=== PATIENT | female | born 1995 | race Caucasian/White ===

== ENCOUNTER 2018-01-03 12:01 | Emergency (ER) | payer OTHER, MEDICAID, SELFPAY ==
[2018-01-03 12:02] VITALS: BP 104/63; PULSE 92; RESP 17; TEMP 37; O2SAT 94; BMI 25.2
--- NOTE | 2018-01-03 12:12 | RAD_ITS ---
STUDY: X-RAY - RIGHT SHOULDER REASON FOR EXAM: Female, 22 years old. Shoulder pain x couple weeks. Injury several years ago. TECHNIQUE: 4 image(s) of the shoulder, including frontal internal and external rotation views. COMPARISON: None. FINDINGS: Normal glenohumeral articulation. Normal acromioclavicular joint. Normal acromion. There is normal range of motion on internal and external rotation. Normal humeral head and visualized proximal humerus. The soft tissue structures are unremarkable. There is no demonstrated osseous destructive lesion or fracture. Normal visualized pulmonary apex. RAD/Shoulder min 2 Views IMPRESSION: Normal x-ray examination of the right shoulder. Electronically Signed: Douglas Rosen MD at 13:12 EDT , Service support ,
--- NOTE | 2018-01-03 12:17 | ED.DCSUM_ITS ---
- ER Visit Summary Date of Service: 01/03/18 Chief Complaint: Atraumatic right shoulder pain. History of Present Illness: The patient is a 22 F hand dominant. Prior history of right shoulder fracture but never needed surgery. Also for the endometriosis. Patient works using her hands a lot. In the last 2 weeks has had soreness and discomfort in her right shoulder. Denies any new falls or trauma. No redness, swelling or fever. Denies other complaints. Physical Examination: Appearing young female. Vital signs are stable. Afebrile. H EENT exam unremarkable. Neck nontender no lymphadenopathy. Full range of motion. Lungs clear to auscultation bilaterally. Heart regular rate and rhythm no murmur. Chest and abdomen soft nontender. Extremities moving all 4. Neurovascular intact. The right shoulder itself there is no swelling. No redness or warmth. No effusion. There is no gross bony deformity. There is no significant tenderness. She is able to do full flexion-extension of the right shoulder. AB and adduction are intact. Distally the right humerus, elbow, forearm wrist and hand are nontender neurovascular intact. Strong radial pulse. Normal electrician yard strength and sensation. Back nontender. Neurologic exam normal. Test Results: Right shoulder x-ray no acute abnormality Emergency Department Course and Treatment: On repeat exam at the patient is doing well. I went over the x-ray results with both her and her significant other. Treatment Plan: Ice to the right shoulder. Motrin for pain and inflammation. Rest. If not improving follow-up with local orthopedic surgeon. Disposition: Discharge Impression: Acute right shoulder strain This note was generated with FreeAgent dictation software. It may contain incorrect words, spelling, and punctuation that were not noted in review of the chart prior to signing ED Disposition - Plan for ED Patient: Chief Complaint: Upper Extremity Injury Referrals: [facility] Doctor,Out of [Primary Care Provider] -
--- NOTE | 2018-01-03 13:06 | ED.DEP ---
ED Disposition - Plan for ED Patient: Disposition: Home or Assisted Living Chief Complaint: Upper Extremity Injury Instructions: ED Sprain Shoulder Referrals: Nilesh Carmen DO [STAFF PHYSICIAN] - 10-14 Days if not better Additional Instructions: Ice to right shoulder. Motrin for pain and inflammation. Rest the shoulder. No lifting greater than 10 pounds. If not improving follow-up with local orthopedic surgeon.
== END 2018-01-03 13:32 | disposition home or self-care (01) ==
PROVIDERS: Emergency Provider Emergency Medicine; Family Provider Nurse Practitioner Family; PCP Nurse Practitioner Family
DX: S46.911A Strain of unspecified muscle, fascia and tendon at shoulder and upper arm level, right arm, initial encounter (principal); X58.XXXA Exposure to other specified factors, initial encounter; Y93.9 Activity, unspecified; F32.9 Major depressive disorder, single episode, unspecified
CPT/HCPCS: 73030; 99282

== ENCOUNTER → 2019-03-21 14:07 | Outpatient (CLI) | payer OTHER, MEDICAID, SELFPAY ==
[2018-06-15 10:11] VITALS: BMI 28.5
[2019-03-21 16:24] LABS: Absolute Lymphocyte Count 1.63 X10^3/uL (0.83-4.51); Absolute Neutrophil Count 8.3 X10^3/uL (2.0-7.7); Basophil# 0.04 X10^3/uL; Basophil% 0.4 % (0-1); Eosinophil# 0.06 X10^3/uL; Eosinophils% 0.6 % (0-5); Hematocrit 43.3 % (37-47); Hemoglobin 14.1 g/dL (12.0-15.0); Lymphocyte # 1.63 X10^3/ul (4.0); Lymphocyte % 15.2 % (19-41); Mean Corp Hgb Conc 32.6 g/dL (32-36); Mean Corpuscular Volume 92.1 fL (81-99); Mean Platelet Vol. 9.4 fl (6.2-12.0); Monocyte# 0.64 X10^3/uL; NRBC Flagged by Analyzer 0 % (0-5); Neutrophil # 8.26 X10^3/uL (2.7-7.7); Neutrophil % 77.1 % (47-70); Platelet Count 344 K/mm3 (150-450); RBC Distribution Width CV 13.4 % (11.6-14.6); RBC Distribution Width SD 45.2 fl (35.1-43.9); White Blood Count 10.7 K/mm3 (4.4-11.0)
[2019-03-21 16:31] LABS: Color, Urine Yellow (Yellow); Glucose, Dipstick Normal (Normal); Ketone-Dipstick Negative (Negative); Leukocyte Esterase-Dipstick 100 /ul (Negative); Nitrite-Dipstick Negative (Negative); Occult Blood-Urine Negative /ul (Negative); Protein-Dipstick Negative (Negative); Urine Bilirubin Dipstick Negative (Negative); Urine Clarity Sl. Cloudy (Clear); Urine Urobilinogen Normal (Normal)
[2019-03-21 16:38] LABS: Thyroid Stim Hormone (TSH) 3.07 uIU/mL (0.358-3.74)
[2019-03-21 16:51] LABS: Amphetamine Urine VISTA NEGATIVE (<1000 ng/mL); Barbiturate Urine VISTA NEGATIVE (< 200 ng/mL); Benzodiazepine Urine VISTA NEGATIVE (< 200 ng/mL); Cocaine Urine VISTA NEGATIVE (< 300 ng/mL); Ecstacy Urine VISTA NEGATIVE (< 500 ng/mL); Methadone Urine VISTA NEGATIVE (< 300 ng/mL); PCP Urine VISTA NEGATIVE (< 25 ng/mL); THC Urine VISTA NEGATIVE (< 50 ng/mL); Vista UDS pH Range 7
[2019-03-22 14:25] LABS: HIV - WCH Non-Reactive (Nonreactive); Hepatitis B Surface Antigen Non-Reactive (Nonreactive); Hepatitis C Antibody Non-Reactive (Nonreactive)
[2019-03-24 00:56] LABS: Prenatal RPR NONREACTIVE (NONREACTIVE)
== END ==
PROVIDERS: Visit Provider Obstetrics & Gynecology
DX: Z34.81 Encounter for supervision of other normal pregnancy, first trimester (principal)
CPT/HCPCS: 36415; 80307; 81002; 84443; 85025; 86703; 86762; 86803; 87340

== ENCOUNTER 2019-04-07 22:38 | Emergency (ER) | payer OTHER, MEDICAID, SELFPAY ==
[2018-06-15 10:11] VITALS: BMI 28.5
[2019-04-07 22:39] VITALS: BP 131/75; PULSE 87; RESP 16; TEMP 37; O2SAT 98; BMI 35.6
--- NOTE | 2019-04-07 22:50 | ED.DCSUM_ITS ---
History of Present Illness Chief Complaint: Back Detail of Chief Complaint: Right lower back pain Informant: Patient Onset: Weeks Context: Gradual Onset Current Severity: Mild Maximum Severity: Moderate Narrative: Patient presents with right lower back pain that is been ongoing for the past couple of weeks. She states tonight she started having some intermittent pains down her leg. No recent injury. Patient is currently 12 weeks . She has not been taking anything for pain at home. - Past Medical History (1) Depression Status: Chronic Past Medical History - Allergies and Home Meds Allergies/Adverse Reactions: Allergies megestrol Allergy (Verified 04/07/19 22:41) shortness of breath, hives Primary Care Physician: Gisela Noriega NP-C [Primary Care Provider] - Prior records reviewed: Yes Lives: Spouse/ Significant Other Smoking Status: Never smoker Review of Systems General: Denies: Chills, Fever Eyes: Denies: Visual changes - bilaterally ENT: Denies: Bilateral ear pain Cardiovascular: Denies: Chest pain Respiratory: Denies: Dyspnea, Cough Gastrointestinal: Denies: Abdominal pain, Diarrhea Genitourinary: Denies: Dysuria Musculoskeletal: Reports: Back pain, Extremity Pain Skin: Denies: Rash Neurological: Denies: Headache, Parasthesia, Numbness Allergy: Denies: Uticaria Physical Exam Vital Signs/Narrative: Vital Signs Temp Pulse Resp BP Pulse Ox 04/07/19 22:39 98.6 F 87 16 131/75 H 98 Inital Vital Signs reviewed: Yes General: Well nourished, Well developed Head: Normocephalic ENT: Moist mucous membranes Neck: Supple Cardiovascular: Regular rate, Regular rhythm Respiratory: No distress, CTA bilaterally Abdomen: Soft, Nontender Back: - - Reproducible tenderness in the right low lumbar paraspinal muscles. No midline tenderness. Skin: Normal color, No rash Neurological: Alert, Oriented x3, Normal Strength, Normal Sensation Psychological: Normal affect Diagnostic/Tx/Re-eval - Medical Decision Making Patient was given single dose of Dermott here. She is instructed on Tylenol every 6 hours. She is encouraged to do stretches. If she needs physical therapy she is to follow-up with her orthopedist. ED Disposition - Plan for ED Patient: Disposition: Home or Assisted Living Diagnosis: Back strain Instructions: Back Sprain/Strain Referrals: Gisela Noriega NP-C [Primary Care Provider] - 1 Week if not improving
[2019-04-07] MEDS: HYDROcodone Bitartrate/Apap 5/325 Tablet PO (23:03)
[2019-04-07 23:07] VITALS: RESP 14
== END 2019-04-07 23:07 | disposition home or self-care (01) ==
LOC: ED 23:03
PROVIDERS: Emergency Provider Emergency Medicine; Family Provider Nurse Practitioner Family; PCP Nurse Practitioner Family
DX: O99.89 Other specified diseases and conditions complicating pregnancy, childbirth and the puerperium (principal); S39.012A Strain of muscle, fascia and tendon of lower back, initial encounter; X58.XXXA Exposure to other specified factors, initial encounter; Y93.9 Activity, unspecified; O99.341 Other mental disorders complicating pregnancy, first trimester; F32.9 Major depressive disorder, single episode, unspecified; Z3A.12 12 weeks gestation of pregnancy
CPT/HCPCS: 99283; J7030

== ENCOUNTER 2019-04-30 16:45 | Emergency (ER) | payer OTHER, MEDICAID, SELFPAY ==
[2019-04-30 16:46] VITALS: BP 117/76; PULSE 101; RESP 14; TEMP 36.7; O2SAT 98; BMI 35.6
[2019-04-30 17:58] LABS: Mucous, Urine 0 SEEN /hpf (<or=2+); Red Blood Cells-Urine 0 SEEN /hpf (0-5)
[2019-04-30 18:03] LABS: Color, Urine Yellow (Yellow); Glucose, Dipstick Normal (Normal); Ketone-Dipstick 5 mg/dl (Negative); Leukocyte Esterase-Dipstick 100 /ul (Negative); Nitrite-Dipstick Negative (Negative); Occult Blood-Urine 10 /ul (Negative); Protein-Dipstick 15 mg/dl (Negative); Specific Gravity, Urine 1.025 (1.002-1.030); Urine Bilirubin Dipstick Negative (Negative); Urine Clarity Sl. Cloudy (Clear); Urine Urobilinogen 1 mg/dl (Normal); Urine pH 6.5 (5.0 - 8.0)
[2019-04-30 18:05] LABS: Absolute Lymphocyte Count 1.92 X10^3/uL (0.83-4.51); Absolute Neutrophil Count 8.7 X10^3/uL (2.0-7.7); Basophil# 0.03 X10^3/uL; Basophil% 0.3 % (0-1); Eosinophil# 0.09 X10^3/uL; Eosinophils% 0.8 % (0-5); Hematocrit 40.7 % (37-47); Hemoglobin 13.4 g/dL (12.0-15.0); Lymphocyte # 1.92 X10^3/ul (4.0); Lymphocyte % 16.7 % (19-41); Mean Corp Hgb Conc 32.9 g/dL (32-36); Mean Corpuscular Hgb 29.8 pg (27.0-32.0); Mean Corpuscular Volume 90.4 fL (81-99); Monocyte# 0.64 X10^3/uL; Monocyte% 5.6 % (0-10); NRBC Flagged by Analyzer 0 % (0-5); Neutrophil # 8.65 X10^3/uL (2.7-7.7); Neutrophil % 75.1 % (47-70); Platelet Count 316 K/mm3 (150-450); RBC Distribution Width CV 13.4 % (11.6-14.6); White Blood Count 11.5 K/mm3 (4.4-11.0)
[2019-04-30 18:10] LABS: Internal QC Validated? YES +Cl - CLEAR BKGD
[2019-04-30 18:11] LABS: Pregnancy, Serum, hCG Quali. POSITIVE Negative
[2019-04-30 18:13] LABS: White Blood Cells 0-5 SEEN /hpf (0-5)
[2019-04-30 18:14] LABS: Bacteria 2+ /hpf (None Seen); Squamous Epithelial Cells - UA 0-5 SEEN /hpf (5-10)
[2019-04-30 18:14] LABS: Anion Gap 7 (5-15); BUN 7 mg/dL (7-18); BUN/Creat Ratio 9.2 RATIO (10-20); Calcium,Total 9.6 mg/dL (8.5-10.1); Chloride 111 mmol/L (98-107); Creatinine, Serum 0.76 mg/dL (0.55-1.02); EST Glomerular Filtration Rate 98 mL/min (>60); Est Glom Filt Rate - Afr Amer 118 mL/min (>60); Estimated Creatinine Clearance 143.27 ml/min; Glucose 106 mg/dL (74-106); Potassium 3.6 mmol/L (3.5-5.1); Sodium Level 139 mmol/L (136-145)
--- NOTE | 2019-04-30 18:25 | ED.DCSUM_ITS ---
History of Present Illness Chief Complaint: Abd Pain Informant: Patient Onset: Weeks Maximum Severity: Mild Narrative: Patient is about 14 weeks she is G2, P1 having a miscarriage with her at about 3 to 4 weeks. She indicates she has been having intermittent right-sided abdominal pain for 1 to 2 weeks it seems to come and go she recalls it being exacerbated when she coughed or sneezed then today when she was carrying a heavy laundry basket down stairs. The pain comes and goes nothing makes it better or worse she is had no fever no cough she is eating and drinking well normal bowel bladder habits no vaginal bleeding. She indicates she had a pelvic ultrasound when she was 10 weeks with uncomplicated pelvic ultrasound noticed of ectopic no fever no cough no history to suggest appendicitis Past Medical History - Allergies and Home Meds Allergies/Adverse Reactions: Allergies megestrol Allergy (Verified 04/30/19 16:48) shortness of breath, hives Primary Care Physician: Gisela Noriega, [employer]-C [Primary Care Provider] - Past Medical History: - Smoking Status: Never smoker Review of Systems ROS: - As above General: Denies: Chills, Fever, Sweats Eyes: Denies: Visual changes - bilaterally, Diplopia ENT: Denies: Rhinorrhea, Sore throat Cardiovascular: Denies: Chest pain, Palpitations Respiratory: Denies: Dyspnea, Cough, Dyspnea on exertion Gastrointestinal: Reports: Abdominal pain. Denies: Nausea, Vomiting, Diarrhea, Melena, Hematochezia Genitourinary: Denies: Dysuria, Hematuria, Frequency Musculoskeletal: Denies: Back pain, Extremity Pain Skin: Denies: Rash, Wounds Neurological: Denies: Headache, Weakness, Numbness Physical Exam Vital Signs/Narrative: Vital Signs Temp Pulse Resp BP Pulse Ox 04/30/19 16:46 98.1 F 101 H 14 117/76 98 General: Well nourished, Well developed, No Acute Distress Head: Normocephalic, Atraumatic Eyes: Perrl, EOMI ENT: Moist mucous membranes, No rhinorrhea Neck: Supple, Nontender Cardiovascular: Regular rate, Regular rhythm, No murmurs Respiratory: No distress, CTA bilaterally, Chest nontender Abdomen: Soft, Nontender, Nondistended, Normal bowel sounds, - - The patient's abs Apsley soft and nontender she is having no pain now she points to the right side of the abdomen right flank area as the area she has pain in the backs unremarkable rest of her exam is entirely unremarkable she denies any vaginal bleeding or discharge Back: Nontender, Normal Inspection Extremities: Nontender, No edema Skin: Normal color, No rash Neurological: Alert, Oriented x3, Cranial nerves II-XII grossly intact, Normal Strength, Normal Sensation Psychological: Normal affect, Normal Mood Diagnostic/Tx/Re-eval - Medical Decision Making The patient has had the pain intermittently for weeks her ED evaluation with labs CBC white count negative UA negative she indicates she had a pelvic ultrasound to the office at 10 weeks that showed IUP with no ectopic, at this time we were talking to her QUANTITY SURVEYOR Dr. Kamara to discuss her further management Patient's ED lab work-up and UA were generally unremarkable, the UA showed no acute gross abnormalities was some bacteriuria sent for urine culture on reevaluation she remains asymptomatic she is been eating and drinking she is been having this intermittent pain for weeks I spoke with her inbound sales representative Dr. Kamara we discussed the management options he agreed that this time ultrasound was not necessary and he would prefer to see her in the office on Thursday or Thursday for further management, I discussed this option with the patient she agreed she understood the need to avoid carrying heavy objects might strain her abdomen to return for any change in her symptoms vaginal bleeding vomiting fever etc. and she was comfortable with outpatient management Home stable Final impression Remittent right-sided abdominal pain, 14 weeks ED Disposition - Plan for ED Patient: Diagnosis: Abdominal pain in Instructions: ABDOMINAL PAIN, Unknown Cause, (Female), ABDOMINAL PAIN, Early Referrals: Gisela Noriega, ZORAIDA-C [Primary Care Provider] -
[2019-04-30 19:08] VITALS: RESP 16
== END 2019-04-30 19:37 | disposition home or self-care (01) ==
LOC: ED 18:33
PROVIDERS: Emergency Provider Emergency Medicine; PCP Nurse Practitioner Family
DX: O26.892 Other specified pregnancy related conditions, second trimester (principal); R10.9 Unspecified abdominal pain; Z3A.14 14 weeks gestation of pregnancy
CPT/HCPCS: 80048; 81001; 84703; 85025; 87086; 87088; 99283; A4216

== ENCOUNTER 2019-08-06 14:55 | Outpatient (CLI) | payer OTHER, MEDICAID, SELFPAY ==
[2019-08-06 15:19] VITALS: BP 98/55; PULSE 95; TEMP 36.7; O2SAT 97
[2019-08-06 15:33] VITALS: BMI 38.2
[2019-08-06 15:49] LABS: Color, Urine Yellow (Yellow); Glucose, Dipstick Normal (Normal); Ketone-Dipstick Negative (Negative); Leukocyte Esterase-Dipstick 25 /ul (Negative); Nitrite-Dipstick Negative (Negative); Occult Blood-Urine Negative /ul (Negative); Protein-Dipstick Negative (Negative); Specific Gravity, Urine 1.015 (1.002-1.030); Urine Bilirubin Dipstick Negative (Negative); Urine Clarity Cloudy (Clear); Urine Urobilinogen Normal (Normal)
[2019-08-06 16:26] VITALS: RESP 18
--- NOTE | 2019-08-06 23:08 | OB.TRI.NOTE ---
- Problem List (1) 28 weeks gestation of Status: Acute (2) Pain Status: Acute History of Present Illness Date of Service: 08/06/19 Was patient seen by the physician?: No Reason For Visit: RULE OUT PRE TERM LABOR Date of Service: 08/06/19 Final JENNIFER: 10/23/19 Final JENNIFER Source: US <20 weeks Gestational age: 28 Weeks and 6 Days Allergies megestrol Allergy (Verified 08/06/19 15:30) shortness of breath, hives Laboratory Studies: Laboratory Tests 08/06/19 Range/Units 15:00 Urine Color Yellow (Yellow) Urine Clarity Cloudy (Clear) Urine pH 7.0 (5.0 - 8.0) Ur Specific Wheaton 1.015 (1.002-1.030) Urine Protein Negative (Negative) mg/dl Urine Glucose (UA) Normal (Normal) mg/dl Urine Ketones Negative (Negative) mg/dl Urine Occult Blood Negative (Negative) /ul Urine Nitrite Negative (Negative) Urine Bilirubin Negative (Negative) mg/dL Urine Urobilinogen Normal (Normal) mg/dl Ur Leukocyte Esterase 25 H (Negative) /ul Review of Systems Constitutional: Denies: Chills, Fever, Weight Change HEENT: Denies: Head Aches, Sinus Congestion, Sinus Drainage Cardiovascular: Denies: Chest Pain, Palpitations Respiratory: Denies: Cough, Shortness of breath at rest, Sputum production Gastrointestinal: Reports: Abdominal Pain - LUQ and, left side and pelvis. Denies: Nausea, Vomiting Genitourinary: Denies: Dysuria Musculoskeletal: Denies: Joint Pain, Joint Tenderness Skin: Denies: Rash, Wounds Neurological: Denies: Numbness, Tingling, Focal weakness Psychiatric: Denies: Anxiety, Depression, Homicidal Ideations, Suicidal Ideations Hematologic/ Lymphatic: Denies: Easy Bruising, Easy Bleeding Physical Exam Vitals: Vital Signs Temp Pulse Resp BP Pulse Ox 98.1 F 95 18 98/55 L 97 08/06/19 15:19 08/06/19 15:19 08/06/19 16:26 08/06/19 15:19 08/06/19 15:19 General: Alert, Oriented x3, No apparent distress HEENT: Atraumatic, Normocephalic. Negative for: Thyromegaly, Lymphadenopathy Cardiovascular: Regular rate, Regular Rhythm Lungs: Clear to auscultation Abdomen: Bowel Sounds Present, Gravid Neurological: Deep Tendon Reflexes 2+/4 and Symmetrical, Neuro grossly intact CARDIOLOGY TEACHER: Normal external genitalia. Negative for: Vulvar lesions NST - FHR Rate Baby A Baseline: 145 Variability:: Moderate Accelerations:: 15 x 15 Decelerations:: None NST Reactive:: Yes FHR Category:: Category I Uterine Activity:: irritability, not felt by patient Impression/Plan A/P at 28.6 weeks gestation presenting with constant LUQ pain rating pain a 6/10 and intermittent left side with low pelvic pain. Has not tried any relieving measures. NST reactive, Category I UA ran with only small leuks noted Denies urinary frequency, burning, or urgency Educated on relieving measures of Tylenol, warm bath, belly band and heating pad for short amounts of time Round ligament pain discussion Advised if not feeling better or is worse Thursday to call OB office
== END 2019-08-06 16:25 | disposition home or self-care (01) ==
LOC: WPOUT 15:00 → OBT 15:01
PROVIDERS: PCP Nurse Practitioner Family; Visit Provider Obstetrics & Gynecology
DX: O26.893 Other specified pregnancy related conditions, third trimester (principal); R10.12 Left upper quadrant pain; R10.2 Pelvic and perineal pain; Z3A.28 28 weeks gestation of pregnancy
CPT/HCPCS: 59025; 59050; 81002; 99218; G0378

== ENCOUNTER → 2019-08-11 13:07 | Outpatient (CLI) | payer OTHER, MEDICAID, SELFPAY ==
[2019-08-06 15:33] VITALS: BMI 38.2
[2019-08-11 14:40] LABS: Hematocrit 35.8 % (37-47); Hemoglobin 11.9 g/dL (12.0-15.0); Mean Corp Hgb Conc 33.2 g/dL (32-36); Mean Corpuscular Hgb 31.2 pg (27.0-32.0); Mean Corpuscular Volume 93.7 fL (81-99); Platelet Count 308 K/mm3 (150-450); RBC Distribution Width CV 13.9 % (11.6-14.6); Red Blood Count 3.82 M/mm3 (4.2-5.4); White Blood Count 11.2 K/mm3 (4.4-11.0)
[2019-08-11 14:43] LABS: Glucose Challenge Gest 1H 50g 205 mg/dL (70-140)
== END ==
PROVIDERS: PCP Nurse Practitioner Family; Referring Provider Obstetrics & Gynecology; Visit Provider Obstetrics & Gynecology
DX: Z34.83 Encounter for supervision of other normal pregnancy, third trimester (principal)
CPT/HCPCS: 36415; 82950; 85027

== ENCOUNTER → 2019-08-16 07:04 | Outpatient (CLI) | payer OTHER, MEDICAID, SELFPAY ==
[2019-08-06 15:33] VITALS: BMI 38.2
[2019-08-16 07:52] LABS: Glucose GTT-Gestation. Fasting 84 mg/dL (<105)
[2019-08-16 09:07] LABS: Glucose GTT-Gestational 1 Hr 176 mg/dL (<190)
[2019-08-16 09:55] LABS: Glucose GTT-Gestational 2 Hr 161 mg/dL (<165)
[2019-08-16 11:20] LABS: Glucose GTT-Gestational 3 Hr 132 L (<145)
== END ==
PROVIDERS: PCP Nurse Practitioner Family; Referring Provider Obstetrics & Gynecology; Visit Provider Obstetrics & Gynecology
DX: O99.810 Abnormal glucose complicating pregnancy (principal); R73.02 Impaired glucose tolerance (oral); Z3A.00 Weeks of gestation of pregnancy not specified
CPT/HCPCS: 36415; 82951; 82952

== ENCOUNTER → 2019-09-28 | Outpatient (CLI) | payer OTHER, MEDICAID, SELFPAY | END | disposition home or self-care (01) | LOC: LABSPEC 11:09 | PROVIDERS: PCP Nurse Practitioner Family; Visit Provider Obstetrics & Gynecology | DX: Z36.85 Encounter for antenatal screening for Streptococcus B (principal) | CPT/HCPCS: 87081 ==

== ENCOUNTER → 2019-09-29 10:52 | Outpatient (CLI) | payer OTHER, MEDICAID, SELFPAY ==
--- NOTE | 2019-09-29 10:56 | VDLE_ITS ---
Reason For Study: pain Procedure LEFT Exam performed in department. GSV is normal. The exam was abbreviated due to the COVID 19 CFV is compressible, spontaneous, phasic, protocol. competent, and demonstrates normal The exam was diagnostic. augmentation. A preliminary report was called and/or faxed FV is compressible, spontaneous, phasic, to Aretha Aldridge CNM. competent and demonstrates normal augmentation. POP V is compressible, spontaneous, phasic, competent and demonstrates normal augmentation. T/P Trunk is compressible. PTV is compressible. LT PerV is compressible. Interpretation Summary Deep veins of the left lower extremity are patent and compressible segmentally. There is no evidence of left lower extremity deep vein thrombosis. Valvular competence appears intact within the proximal deep venous system on the left . The left great saphenous vein appears patent and compressible segmentally. Ordering Physician: Aretha Aldridge Performed By: Levi Bucio RVT
== END ==
PROVIDERS: PCP Nurse Practitioner Family; Referring Provider Obstetrics & Gynecology; Visit Provider Obstetrics & Gynecology
DX: M79.89 Other specified soft tissue disorders (principal); Z34.83 Encounter for supervision of other normal pregnancy, third trimester
CPT/HCPCS: 93971

== ENCOUNTER 2019-10-31 19:05 | Inpatient (IN) | payer MEDICAID, SELFPAY ==
[2019-10-31] VITALS (9 sets, daily range): BP systolic 106–120; BP diastolic 63–82; PULSE 86–110; TEMP 36.5–36.7; O2SAT 95–98; BMI 40.6
[2019-10-31] MEDS: Lactated Ringers 1,000 ML 50 ML IV (20:00)
[2019-10-31] MEDS: miSOPROStol 25 MCG TABLET PO (20:07)
[2019-10-31 20:23] LABS: Absolute Lymphocyte Count 1.67 X10^3/uL (0.83-4.51); Absolute Neutrophil Count 8.7 X10^3/uL (2.0-7.7); Basophil# 0.04 X10^3/uL; Basophil% 0.3 % (0-1); Eosinophil# 0.09 X10^3/uL; Eosinophils% 0.8 % (0-5); Hematocrit 39.1 % (37-47); Hemoglobin 12.8 g/dL (12.0-15.0); Lymphocyte # 1.67 X10^3/ul (4.0); Lymphocyte % 14.6 % (19-41); Mean Corp Hgb Conc 32.7 g/dL (32-36); Mean Corpuscular Hgb 30.5 pg (27.0-32.0); Mean Corpuscular Volume 93.3 fL (81-99); Mean Platelet Vol. 9.2 fl (6.2-12.0); Monocyte# 0.55 X10^3/uL; Monocyte% 4.8 % (0-10); NRBC Flagged by Analyzer 0 % (0-5); Neutrophil # 8.67 X10^3/uL (2.7-7.7); Neutrophil % 75.7 % (47-70); Platelet Count 324 K/mm3 (150-450); RBC Distribution Width SD 47.5 fl (35.1-43.9); Red Blood Count 4.19 M/mm3 (4.2-5.4); White Blood Count 11.5 K/mm3 (4.4-11.0)
--- NOTE | 2019-10-31 20:45 | HP.PCM_ITS ---
- Problem List (1) 41 weeks gestation of Status: Acute History Date of Admission: 10/31/19 Final JENNIFER: 10/23/19 Final JENNIFER Source: US <20 weeks Gestational age: 41 Weeks and 2 Days History of this : This is a 24 year-old, G [3], P [0], at 41 weeks gestational age. Allergies megestrol Allergy (Verified 10/31/19 19:42) shortness of breath, hives Home Medications: Home Medications Sertraline HCl [Zoloft] 100 mg PO DAILY 01/03/18 Cholecalciferol (VIT D3) [Vitamin D] 2,000 unit PO DAILY 04/07/19 Pnv No.95/Ferrous Fum/Folic AC [ Caplet] 1 ea PO DAILY 04/07/19 Smoking Status: Never smoker Alcohol: None Number of Fetus(es): 1 NST - FHR Rate Baby A Baseline: 125 Variability:: Moderate Accelerations:: 15 x 15 Decelerations:: None NST Reactive:: Yes FHR Category:: Category I Uterine Activity:: quiet History Past Pregnancies: Past Pregnancies 1--16 SAB at 3 weeks gestation 12-28-19 SAB at 3 weeks gestation Labs: Mom's Labs & Results 10/31/19 10/31/19 10/31/19 19:40 20:00 20:00 WBC 11.5 H RBC 4.19 L Hgb 12.8 Hct 39.1 MCV 93.3 MCH 30.5 MCHC 32.7 RDW Std Deviation 47.5 H RDW Coeff of Kristel 14.0 Plt Count 324 MPV 9.2 Immature Gran % (Auto) 3.800 H Neut % (Auto) 75.7 H Lymph % (Auto) 14.6 L Hubbard % (Auto) 4.8 Eos % (Auto) 0.8 Baso % (Auto) 0.3 Absolute Neuts (auto) 8.7 H Absolute Lymphs (auto) 1.67 Nucleated RBC % 0 Chlam trachomat DNA PCR COVID-19 (ABDIAS) Negative N.gonorrhoeae DNA (PCR) Blood Type A POSITIVE Antibody Screen NEGATIVE 10/31/19 22:45 WBC RBC Hgb Hct MCV MCH MCHC RDW Std Deviation RDW Coeff of Kristel Plt Count MPV Immature Gran % (Auto) Neut % (Auto) Lymph % (Auto) Hubbard % (Auto) Eos % (Auto) Baso % (Auto) Absolute Neuts (auto) Absolute Lymphs (auto) Nucleated RBC % Chlam trachomat DNA PCR Negative COVID-19 (ABDIAS) N.gonorrhoeae DNA (PCR) Negative Blood Type Antibody Screen Course Did the patient receive Yes care? Labs Blood Type: A RH: POSITIVE RPR/VDRL/Syphilis Nonreactive Rubella status Immune HbSAg Negative Date Done: 03/21/19 Chlamydia Not Done Gonorrhea Not Done HIV/AIDS Non-Reactive Group B Strep: Negative Other Lab Procedures/Results/ G/C urine lab to be collected Comments: Current Obstetrical History Gestational Diabetes No Incompetent Cervix No Infertility No IUGR No Macrosomia No Hypertension/Pre-eclampsia No Placenta Previa/Abruption No PTL/PROM No Uterine anomaly No Oligohydramnios No Polyhydramnios No Multiple gestation No Past Medical History Asthma No Diabetes No Hypertension No Heart disease No Mitral valve prolapse No Neurologic/Seizure disorder/ Yes: pt had seizure at 1 year old; resolved and Migraines on no medications Kidney disease No Liver disease No Varicosities No Clotting disorders/Hx of DVT No Thyroid Dysfunction No Other medical diseases No Psychiatric disorders Yes: depression, anxiety Major trauma No Abnormal PAP smear No Sleep apnea No Mammogram in the last 2 years No Social History Marital Status: Alleged father Markel Hx Smoking No Smoking Status Never smoker How long have you used n/a substances (years)? Expected Delivery Method: Spontaneous Vaginal Number of Visits: 15 Review of Systems Constitutional: Denies: Chills, Fever, Weight Change HEENT: Denies: Head Aches, Sinus Congestion, Sinus Drainage Cardiovascular: Denies: Chest Pain, Palpitations Respiratory: Denies: Cough, Shortness of breath at rest, Sputum production Gastrointestinal: Denies: Abdominal Pain, Nausea, Vomiting Genitourinary: Denies: Dysuria Musculoskeletal: Denies: Joint Pain, Joint Tenderness Skin: Denies: Rash, Wounds Neurological: Denies: Numbness, Tingling, Focal weakness Psychiatric: Denies: Anxiety, Depression, Homicidal Ideations, Suicidal Ideations Hematologic/ Lymphatic: Denies: Easy Bruising, Easy Bleeding Physical Exam Vitals: Vital Signs Temp Pulse BP Pulse Ox 97.7 F L 96 107/65 98 11/01/19 07:17 11/01/19 08:41 11/01/19 08:41 11/01/19 07:01 General: Alert, Oriented x3, No apparent distress HEENT: Atraumatic, Normocephalic. Negative for: Thyromegaly, Lymphadenopathy Cardiovascular: Regular rate, Regular Rhythm Lungs: Clear to auscultation Abdomen: Bowel Sounds Present, Gravid Neurological: Deep Tendon Reflexes 2+/4 and Symmetrical, Neuro grossly intact ARTIST AND REPERTOIRE MANAGER: Normal external genitalia. Negative for: Vulvar lesions Estimated gestational size: Appropriate for gestational size Presentation: Cephalic Cervix Dilation (cm): 0 Effacement (%): 0 Assessment/Plan All Active Problems 28 weeks gestation of (Acute) Pain (Acute) 41 weeks gestation of (Acute) A/P: This is a 24 year-old, G [3], P [1], at 41 weeks gestational age. IOL for postdates SVE 0/0/-3 NST Category I Will plan Cytotec IOL Expect Procedure Criteria Procedure Type: Elective COVID Risk Discussion: The surgeon/proceduralist and patient have discussed in detail the risk of exposure to and/or potential harm posed by the COVID-19 virus with having a surgery/procedure at this time versus the risk of delaying the surgery/pr ocedure. It is not possible to know either the risk of delaying the surgery or procedure or chance of getting an infection with perfect accuracy, but a joint decision was made between the patient and the surgeon/proceduralist to proceed at this time with the scheduled surgery/procedure as indicated on the consent form.
[2019-10-31] MEDS: Lactated Ringers 500 ML 999 ML IV (22:28)
[2019-11-01] VITALS (32 sets, daily range): BP systolic 89–125; BP diastolic 47–77; PULSE 77–149; RESP 16–18; TEMP 36.3–37.2; O2SAT 95–99
[2019-11-01 01:05] LABS: Chlamydia Trachomatis by PCR Negative (Negative); Neisserai gonorrhoeae by PCR Negative (Negative); Probe Check PASS; Sample Adequacy Control PASS; Specimen Processing Control PASS
[2019-11-01] MEDS: Oxytocin 30 units/NS 500 ml 30 UNITS/500 ML IV.SOLN IV (04:34)
[2019-11-01] MEDS: Lactated Ringers 500 ML 999 ML IV ×2 (05:14→16:29)
--- NOTE | 2019-11-01 08:45 | PCM.PN.OB ---
Patient Problems: Active and Suspected Problems 41 weeks gestation of (Acute) Subjective: Is tired, but feeling well. Reports contractions are not painful yet. Objective: VSS. SVE 50/-3. Pitocin at 4u. FHR baseline 130, +accels, -decels, moderate variability. UC 2-3m - Physical Exam Vitals/I&O's: Vital Signs Temp Pulse BP Pulse Ox 97.7 F L 96 107/65 98 11/01/19 07:17 11/01/19 08:41 11/01/19 08:41 11/01/19 07:01 Weight: 91.172 kg Body Mass Index (BMI) 40.6 Intake and Output for Last 24 Hours 10/30/19 10/31/19 11/01/19 23:59 23:59 23:59 Intake Total 623.33 / 623.33 1537.37 / 1537.37 Balance 623.33 / 623.33 1537.37 / 1537.37 General: Alert, Oriented x3, Cooperative HEENT: Atraumatic, PERRLA, EOMI, Normocephalic Neck: Supple, No JVD, Negative Carotid Bruits Lungs: Clear to auscultation, Normal air movement Cardiovascular: Regular rate, No murmurs Abdomen: Bowel Sounds Present, Soft, Non Tender Extremities: No edema, Capillary Refill Less than 3 Seconds Skin: No rashes, No breakdown Musculoskeletal: No Tenderness to Palpation of Joints or Extremities Neurological: Cranial nerves II-XII grossly intact Psych/Mental Status: Normal Affect, Appropriate Laboratory Results 10/31/19 19:40: COVID-19 (ABDIAS) Negative 10/31/19 20:00: WBC 11.5 H, RBC 4.19 L, Hgb 12.8, Hct 39.1, MCV 93.3, MCH 30.5, MCHC 32.7, RDW Std Deviation 47.5 H, RDW Coeff of Kristel 14.0, Plt Count 324, MPV 9.2, Immature Gran % (Auto) 3.800 H, Neut % (Auto) 75.7 H, Lymph % (Auto) 14.6 L, Scurry % (Auto) 4.8, Eos % (Auto) 0.8, Baso % (Auto) 0.3, Absolute Neuts (auto) 8.7 H, Absolute Lymphs (auto) 1.67, Nucleated RBC % 0 10/31/19 20:00: Blood Type A POSITIVE, Antibody Screen NEGATIVE 10/31/19 22:45: Chlam trachomat DNA PCR Negative, N.gonorrhoeae DNA (PCR) Negative Current Medications Acetaminophen (Tylenol) 325 - 650 mg PO Q4H PRN PRN PRN Reason: Pain Score 1-3/10 Acetaminophen (Tylenol) 1,000 mg PO Q8H PRN PRN PRN Reason: PAIN OR TEMP Al Hydroxide/Mg Hydroxide (Mylanta Ii) 15 - 30 ml PO Q4H PRN PRN PRN Reason: INDIGESTION Citric Acid/Sodium Citrate (Bicitra) 30 ml PO X1 PRN PRN Reason: Section Fentanyl Citrate (Sublimaze (100mcg Ampule)) 25 - 50 mcg IV Q2H PRN PRN PRN Reason: Pain Score 4-10/10 Lactated Ringer's () 500 mls @ 999 mls/hr IV .Q31M PRN PRN Reason: Epidural Lactated Ringer's () 500 mls @ 999 mls/hr IV .Q31M PRN PRN Reason: Corrective Measures Last Infusion: 11/01/19 05:45 Dose: Infused Documented by: Lactated Ringer's () 1,000 mls @ 50 mls/hr IV .Q20H [facility] Last Infusion: 11/01/19 05:45 Dose: 50 mls/hr Documented by: Oxytocin/Sodium Chloride () 30 units in 500 mls @ 2 mls/hr IV .Q250H [facility] Last Infusion: 11/01/19 07:00 Dose: 4 mls/hr Documented by: Ondansetron HCl (Zofran) 4 mg IV Q4H PRN PRN PRN Reason: NAUSEA Prochlorperazine Edisylate (Compazine Iv) 10 mg IV Q6H PRN PRN PRN Reason: NAUSEA Sodium Chloride () 10 - 40 ml IV X1 PRN PRN Reason: SALINE FLUSH Medical Necessity - Tobacco Use Smoking Status: Never smoker Assessment/Plan All Active Problems 28 weeks gestation of (Acute) Pain (Acute) 41 weeks gestation of (Acute) A/P: Overnight developed tachysystole with Cytotec and switched to Pitocin SVE /-3 medium posterior UC 2-3m NST Category I Pitocin at 4u Plan to AROM when able, to recheck SVE in 4 hours Plans epidural for pain management
[2019-11-01] MEDS: Lactated Ringers 1,000 ML 50 ML IV (12:28)
[2019-11-01] MEDS: fentaNYL 100 MCG/2 ML Ampul IV (12:38)
[2019-11-01] MEDS: fentaNYL-bupivacaine (epidural) 100 ML BAG EPIDURAL (17:15)
[2019-11-01] MEDS: Sodium Citrate/Citric Acid 30 ML UDC PO (18:23)
--- NOTE | 2019-11-01 18:29 | OP.PCM_ITS ---
Delivery Classification: MANAV Final JENNIFER: 10/23/19 Final JENNIFER Source: US <20 weeks Gestational age: 41 Weeks and 2 Days doctor who attended delivery (if requested by OB): Billie Mendez - Mec Stained Fluid ballet soloist: Nati Garces Type of Anesthesia:: Epidural - With Duramorph Implants Used: None Date of Procedure: 11/01/19 Pre-Operative Diagnosis: Postdate , Failure to Descend, Suspected Macrosomia Post-Operative Diagnosis: Postdate , Failure to Descend Indications for : Failure to Progress, Failure of Descent, Suspected cephalopelvic disproportion Description of Procedure: Surgeon: Juan Jose Pollard MD, FACOG Anesthesia: Mateo Preston MD Procedure: Primary Low Transverse Cervical Caesarean Section Findings: Viable female infant with Apgars of 8/9 in caput anterior presentation with thin meconium stained amniotic fluid and membranes and normal three-vessel placenta. Indication: This is a 24-year-old who presented to labor and delivery last evening for postdate induction with Cytotec. The patient progressed to fingertip by morning and an intrauterine pressure catheter was placed but the head remained high (-3 station). She continued to progress to 3 cm but the head did not descend over time frame of approximately 12 hours. Adequate contractions with an IUPC were documented with pitocin up to 10 mIU/min. Given this along with patient fatigue it was decided to proceed with section for failure to descend or dilate. care has otherwise been uneventful except the baby was noted to be 8 pounds and 15 ounces on recent ultrasound suggestive of macrosomia. The patient has been counseled regarding the risk and indications of this procedure including the possibility of bleeding infection and injury to surrounding structures such as bowel bladder. All questions were answered. Procedure: Patient was taken to the operating room where after spinal anesthesia was placed, the patient was prepped and draped in usual sterile fashion and a Ornelas catheter was placed. The abdomen was entered through a Pfannenstiel incision and peritoneum was entered bluntly. After developing a bladder flap on the lower uterine segment a low transverse incision was made on the uterus and head was easily delivered onto the operative field the nose mouth and oropharynx were bulb suctioned. Subsequently a viable female infant was born with Apgars of 8/9. The infant was noted to cry move all extremities vigorously on the operative field. The umbilical cord was doubly clamped and ligated and handed to the nursery personnel who were present for the delivery. Placenta was delivered and noted to be 3 vessels and normal. Uterus was exteriorized and remaining placental tissue was removed. The uterus was then closed in 2 layers first with running locked 0 Vicryl suture followed by a second imbricating layer with 0 Vicryl suture. 0 Vicryl suture was then used in a horizontal mattress interrupted fashion to affect final hemostasis of the uterine incision line. Normal fallopian tubes and ovaries were visualized and the uterus was returned to the pelvis. Hemostasis was noted and rectus abdominis muscles were reapproximated in the midline with interrupted Number 0 Vicryl suture in a horizontal mattress fashion. Fascia was closed with running Number 1 PDS Strata fix suture. Subcutaneous tissue was irrigated with copious amounts of saline solution and then closed with running 3-0 Vicryl suture. Skin was closed with 4-0 monocryl suture in a running subcuticular fashion. Steri strips and a Mepilex dressing were placed across the incision. The patient tolerated the procedure well and was taken to the recovery room in satisfactory condition. Sponge, needle, and instrument counts were all reportedly correct. EBL was less than 500 cc. Ancef 2 gms and Azithromycin IV was given prior to the procedure. Spicemen to Pathology: None Complications: None Amniotic Membrane Rupture Type: Spontaneous Amniotic Fluid Description: Lightly stained meconium Placenta Disposition: [facility] Specimen(s) sent to pathology: None Drain: Ornelas to straight drain Fluids Replaced: Crystalloid Cord Entanglement: None Cord Vessel Description: 3 Vessels Esitmated Blood Loss (ml): 500 cc Infant Gender: Female (1 minute): 8 (5 minute): 9 Antibiotic Given: Ancef 2 grams IV x1, Zithromax 500 mg/5 mL X1 Pt instructed on risks of surgery: Bleeding, Infection, Injury to surrounding structure(s) including bowel and bladder - Admit VTE Documentation VTE Present on Admission: Yes VTE Mechan Device Prophylaxis: SCD's VTE Pharm Prophylaxis ordered?: Yes
[2019-11-01] MEDS: Cefazolin 2 GM in 0.9% Normal Saline 100 ML IV (18:35)
[2019-11-01] MEDS: Methylergonovine 0.2 MG/ML Ampul IM (18:56)
--- NOTE | 2019-11-01 19:35 | DCINST_ITS ---
Discharge Diet: No Restrictions Discharge Activity: May not drive while taking narcotic pain medications., May Shower, May Take a Tub Bath May resume sexual activity in: 4-6 weeks Lifting Restrictions: 20 pounds Additional Activity Instructions:: Nothing in the vagina for 4-6 weeks. You may return to work/school in 6 weeks. Call your doctor if your incision/area has: Continuous Slow Oozing, Sudden Increased Bleeding, Increased Pain/ Swelling, Increased Redness, Foul Smelling Discharge Call your doctor if you observe: Fever of 101 or Higher, Inability to urinate, Inability to have a bowel movement, Using more than one pad per hour Additional Instructions: If you experience any of the following, contact your healthcare provider. * Bleeding that soaks a pad every hour for 2 hours * Fever 100.4 or higher * Unrelieved incision or abdominal pain * Swelling, redness, discharge or bleeding from your incision or episiotomy site * Your incision begins to separate * Problems urinating (including inability to urinate or burning while urinating). * Visual changes * Severe headache * Flu-like symptoms * Pain or redness in one of both of your breasts * Pain, warmth, tenderness or swelling in your legs, especially the calf area * Frequent nausea and vomiting * Symptoms of depression or anxiety If you experience any of the following, call 911 or go to the nearest Emergency Room. * Chest pain * Problems breathing * Seizure activity * Partial or complete paralysis of a body part, slurred speech, weakness or drooping of the face, or a sudden inability to walk or hold your balance Allergies/Adverse Reactions: Allergies megestrol Allergy (Verified 10/31/19 19:42) shortness of breath, hives Medications to take at Discharge Sertraline HCl [Zoloft] 100 mg PO DAILY 01/03/18 Cholecalciferol (VIT D3) [Vitamin D] 2,000 unit PO DAILY 04/07/19 Pnv No.95/Ferrous Fum/Folic AC [ Caplet] 1 ea PO DAILY 04/07/19 Docusate Sodium [Colace] 100 mg PO BID PRN PRN #60 cap 11/01/19 Oxycodone [Oxyir] 5 mg PO Q6H PRN PRN 7 Days #20 tab 11/01/19 The following prescriptions were given: Docusate Sodium [Colace] 100 mg PO BID PRN PRN #60 cap PRN Reason: Constipation Transmission Status: Received by [facility] Oxycodone [Oxyir] 5 mg PO Q6H PRN PRN 7 Days #20 tab PRN Reason: Pain Score 6-10/10 Transmission Status[facility] Follow-Up: Call to make an appointment with your doctor for an incision check in 1-2 weeks. You will also need a 6 week post- follow up appointment. Test results from this visit will be discussed in further detail at your follow- up appointment, if applicable. Please Follow Up With: Juan Jose Pollard MD - [phone] When: Call to make an appointment for an incision check in 2 weeks. Primary Care Physician: Gisela Noriega NP-C [Primary Care Provider] -
[2019-11-01] MEDS: Oxytocin 30 units/NS 500 ml 30 UNITS/500 ML IV.SOLN 167 UNITS IV (20:10)
[2019-11-01] MEDS: Acetaminophen 500 MG Tablet 1000 MG PO (21:24)
--- NOTE | 2019-11-01 22:45 | NURSING ---
Epidural catheter removed, blue tip intact.
[2019-11-01] MEDS: Lactated Ringers 1,000 ML 100 ML IV (22:53)
[2019-11-02] VITALS (15 sets, daily range): BP systolic 81–105; BP diastolic 33–54; PULSE 90–113; RESP 12–18; TEMP 36.4–36.9; O2SAT 93–99
[2019-11-02] MEDS: Ketorolac 30 MG/ML Syringe IV ×4 (01:24→19:02)
[2019-11-02] MEDS: Cefazolin 1 GM/50 ML BAG IV ×2 (02:15→10:37)
[2019-11-02] MEDS: Acetaminophen 500 MG Tablet 1000 MG PO ×4 (03:07→21:32)
[2019-11-02 04:55] LABS: Hemoglobin 9.3 g/dL (12.0-15.0); Mean Corp Hgb Conc 32.1 g/dL (32-36); Mean Corpuscular Hgb 30.3 pg (27.0-32.0); Mean Corpuscular Volume 94.5 fL (81-99); Platelet Count 235 K/mm3 (150-450); RBC Distribution Width CV 14.1 % (11.6-14.6); RBC Distribution Width SD 47.8 fl (35.1-43.9); Red Blood Count 3.07 M/mm3 (4.2-5.4); White Blood Count 14.6 K/mm3 (4.4-11.0)
[2019-11-02] MEDS: Lactated Ringers 500 ML 999 ML IV (05:00)
[2019-11-02] MEDS: Lactated Ringers 1,000 ML 100 ML IV (06:38)
[2019-11-02] MEDS: Enoxaparin 40 MG/0.4 ML Syringe SC ×2 (06:38→09:32)
--- NOTE | 2019-11-02 08:48 | PCM.PN.OB ---
Patient Problems: Active and Suspected Problems 41 weeks gestation of (Acute) Subjective: Very tired. Pain is well controlled. Denies pain or heavy bleeding. Hasn't been up much yet. is going okay, but still having some issues with latch. Objective: VSS with lower BPs 90s/30s, but asymptomatic. Fundus is firm, midline, u/1. Lochia rubra moderate. Dressing is CDI. - Physical Exam Vitals/I&O's: Vital Signs Temp Pulse Resp BP Pulse Ox 97.7 F L 90 16 81/33 L 93 11/02/19 08:29 11/02/19 08:29 11/02/19 08:29 11/02/19 08:29 11/02/19 08:29 Oxygen Delivery Method Room Air Weight: 91.172 kg Body Mass Index (BMI) 40.6 Intake and Output for Last 24 Hours 10/31/19 11/01/19 11/02/19 23:59 23:59 23:59 Intake Total 623.33 / 623.33 4004.59 / 4004.59 1773.34 / 1773.34 Output Total 200 / 200 320 / 320 Balance 623.33 / 623.33 3804.59 / 3804.59 1453.34 / 1453.34 General: Alert, Oriented x3, Cooperative HEENT: Atraumatic, PERRLA, EOMI, Normocephalic Neck: Supple, No JVD, Negative Carotid Bruits Lungs: Clear to auscultation, Normal air movement Cardiovascular: Regular rate, No murmurs Abdomen: Bowel Sounds Present, Soft, Non Tender Extremities: No edema, Capillary Refill Less than 3 Seconds Skin: No rashes, No breakdown Musculoskeletal: No Tenderness to Palpation of Joints or Extremities Neurological: Cranial nerves II-XII grossly intact Psych/Mental Status: Normal Affect, Appropriate Laboratory Results 11/02/19 04:40: WBC 14.6 H, RBC 3.07 L, Hgb 9.3 L, Hct 29.0 L, MCV 94.5, MCH 30.3, MCHC 32.1, RDW Std Deviation 47.8 H, RDW Coeff of Kristel 14.1, Plt Count 235, MPV 9.0 Current Medications Acetaminophen (Tylenol) 1,000 mg PO Q6H [facility] Last Admin: 11/02/19 03:07 Dose: 1,000 mg Documented by: Bisacodyl (Dulcolax) 10 mg RECTAL UD PRN PRN Reason: If no BM Enoxaparin Sodium (Lovenox) 40 mg SC DAILY [facility] Last Admin: 11/02/19 06:38 Dose: 40 mg Documented by: Hydrocortisone (Hytone) 1 applic TOPICAL TID PRN PRN; Protocol PRN Reason: Discomfort Lactated Ringer's () 1,000 mls @ 100 mls/hr IV .Q10H [facility] Last Admin: 11/02/19 06:38 Dose: 100 mls/hr Documented by: Naloxone HCl 4 mg/ Dextrose 504 mls @ 0 mls/hr IV .Q0M PRN; Protocol PRN Reason: Respiratory depression Cefazolin Sodium () 1 gm in 50 mls @ 150 mls/hr IV Q8H [facility] Stop: 11/02/19 10:49 Last Infusion: 11/02/19 02:35 Dose: Infused Documented by: Ibuprofen (Motrin) 600 mg PO Q6H [facility] Ketorolac Tromethamine (Toradol (Bkc)) 30 mg IV Q6H [facility] Stop: 11/02/19 19:01 Last Admin: 11/02/19 06:49 Dose: 30 mg Documented by: Methylergonovine Maleate (Methergine) 0.2 mg IM X1 PRN PRN Reason: Uterine Atony Last Admin: 11/01/19 18:56 Dose: 0.2 mg Documented by: Naloxone HCl (Narcan) 0.02 mg IV Q1M PRN PRN Reason: RR <10 and pt unresponsive Ondansetron HCl (Zofran) 4 mg IV Q4H PRN PRN PRN Reason: Nausea Oxycodone HCl (Oxyir) 5 - 10 mg PO Q4H PRN PRN PRN Reason: Pain Score 4-10/10 Prochlorperazine Edisylate (Compazine Iv) 10 mg IV Q6H PRN PRN PRN Reason: NAUSEA Senna/Docusate Sodium (Senokot-S, Anabell-Colace) 0 tablet PO DAILY [facility] Sertraline HCl (Zoloft) 100 mg PO DAILY [facility] Simethicone (Mylicon) 80 mg PO PCHS PRN PRN Reason: Indigestion/stomach pain Sodium Chloride () 5 - 15 ml IV UD PRN PRN Reason: SALINE FLUSH Medical Necessity - Tobacco Use Smoking Status: Never smoker Assessment/Plan All Active Problems 28 weeks gestation of (Acute) Pain (Acute) 41 weeks gestation of (Acute) S/P primary csection POD #1 mother Normal involution and course Dyad stable Continue orders Wishes to discharge tomorrow
[2019-11-02] MEDS: Sertraline 100 MG Tablet PO (09:32)
[2019-11-02] MEDS: Senna/Docusate Sodium 1 Tablet PO (09:33)
--- NOTE | 2019-11-02 14:46 | CPS ---
STARTED BY NURSING
--- NOTE | 2019-11-02 16:20 | CASEMGMT ---
Social Work Assessment Labor and Delivery Unit Patient Address: [address] [place] [address] [address], [place] [address] Phone number: [phone] Date of Referral: 11/01/2019; 11/02/2019 Time of Referral: 727 Referred By: Dr. Pollard; Dr. Mendez Date of Intervention: 11/02/2019 Time of Intervention: 1330 Reason for Referral: Maternal history of depression and anxiety History obtained from: Medical records and mother of baby (MOB) Lakshmi Petersen; father of baby (FOB) Markel Petersen. Household composition: MOB and FOB live together in a home. Home situation is reported to be safe and adequate. Patient's parent/guardian status: MOB is age 26 and FOB is age 28, for almost 1 year but together for 3. Upon admission MOB denied any abuse or safety concerns in relationship. Both parents were raised in the [facility], with PAPI leaving at the age of 10 when her parents left. FOB states he left the [facility] at the age of 14. [place] baby is the first child for both parents. Baby is to be named Siobhan Petersen, born 11/01/2021. Medical History: PAPI is to 1. care started at 9 weeks gestation and regular visits thereafter. Siobhan was born weighing 8 pounds 2 ounces. Apgars 8 and 9 at 1 and 5 minutes respectively. Delivery was via section. Educational Status: MOB reports she graduated from high school. Reports to be able to read, write, and understand what is read. FOB reports he got through the seventh grade. Financial Status: FOB reports to working construction and will take a few days off from work, but plans to return to work by next week. 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 Infant Supplies: MOB and FOB report have all needed baby supplies including a bassinet and a crib for safe sleeping. A car seat, clonidine, diapers, and wipes are in place. MOB is planning to breast-feed. Childcare/Caregiver(s): MOB will be the primary caregiver of baby, with help from FOB when he is home from work. Should MOB decide to return to work then MOB sister will provide childcare for the baby. Transportation: MOB and FOB both report to drive and have adequate transportation. Programs/Agencies Involved: MOB has been medical through job and family services in [facility]. Active with [facility]. MOB verbally states agreement to a referral to help me grow. And will be reports history of counseling but nothing current. Plan for baby to follow-up with Dr. Noriega for pediatric aftercare needs. Children Services/Legal Issues: No reported history or issues. Behavioral Health Issues: Mental Health History: MOB reports history of both depression and anxiety with history of counseling and medication management. MOB reports to be on Zoloft at this time, and plans to remain on this in the period. MOB denies any history of suicidal ideation, plans, intent or action. Substance Use History: MOB denies any history of staff substance use issues, denies any history of illicit drug use. Denies any use of alcohol during nor use of any tobacco. Family History: No reported history regarding MOB family. FOB reports he has had.'s of time when he has felt depressed, and when he has high stress levels tends to have OCD tendencies. FOB also reports a history of substance use including marijuana. FOB reports he has not used any type of drugs in 4 years. Drug Screens: Maternal drug screen negative on 03/21/2019. Family/Social Stressors: MOB reports she is disappointed she was not able to have a natural and that it was a bit difficult to have a section delivery. MOB reports however she feels to be coping well with this and reports the surgery itself went smoothly. MOB and FOB both report thought process that Siobhan will be their only child. FOB reports it was too much pain form and will be to have to go through with and childbirth. Support Systems: MOD reports to have an adequate support system with FOB, and will be his parents, and MOB sister. FORaji's parents are also supportive. MOB reports if she starts feeling stressed out, or overwhelmed she can talk to either FOB or her parents. Depression/Shaken Baby/Safe Sleeping MOB educated to shaken baby prevention, safe sleeping, and depression and anxiety including risk factors. ASSESSMENT: Met with MOB and FOB in the room. Introduced to self, role and reason for visit. MOB and FOB both cooperative and agreeable to talk to social media specialist today. MOB and FOB both engaged in conversation, but FOB is hard of hearing and had to turn his hearing aids all the way up in order to engage in conversation. Masks hindered ability to fully communicate with the FOB. FOB presented as supportive to MOB and expressed that when he returns to work a plan to have MOB's sister at the house to help MOB out. MOB and FOB both report to have needed baby supplies for the baby, and to have adequate help from family. MOB and FOB both listened intently to social work education on depression. MOB reports intent to remain on antidepressant medication, which MOB reports has been working well. MOB denies any depressive or anxiety symptoms at this time. MOB agrees to a Help Me Grow referral for additional support at home going. MOB accepting of depression packet and [facility] resource [facility]. MOB handled baby during social work visit and was gentle. MOB gazed at baby a few times. MOB did appear tired and worn out, as evidenced by droopy eyes at times. Though MOB appeared tired, MOB remained appropriately engaged in conversation with this policy writer. MOB and FOB deny any needs with home going. PLAN: MOB and baby to discharge home when ready. Help Me Grow referral to be made. [facility] resource list and depression packet provided this date. No other services requested or indicated. -GRECIA Jorgensen MSW *Information documented in this assessment generated with [employer] System*
[2019-11-02] MEDS: 0.9% Saline Lock 10 ML Syringe IV ×2 (17:20→19:02)
[2019-11-03] MEDS: Ibuprofen 600 MG Tablet PO ×3 (01:23→11:43)
[2019-11-03 01:29] VITALS: BP 91/55; PULSE 104; RESP 16; TEMP 36.6
[2019-11-03] MEDS: Acetaminophen 500 MG Tablet 1000 MG PO ×3 (03:08→16:06)
[2019-11-03 07:50] VITALS: BP 84/47; PULSE 88; RESP 16; TEMP 36.7; O2SAT 97
[2019-11-03] MEDS: Sertraline 100 MG Tablet PO (09:38)
[2019-11-03] MEDS: Senna/Docusate Sodium 1 Tablet PO (09:38)
--- NOTE | 2019-11-03 09:38 | PN.OBGYN_ITS ---
Patient Problems: Active and Suspected Problems 41 weeks gestation of (Acute) Objective: Patient without complaints. Tolerating diet well. Pain well controlled. Positive flatus. Wants to go home today. - Physical Exam Vitals/I&O's: Vital Signs Temp Pulse Resp BP Pulse Ox 98.0 F 88 16 84/47 L 97 11/03/19 07:50 11/03/19 07:50 11/03/19 07:50 11/03/19 07:50 11/03/19 07:50 Oxygen Delivery Method Room Air Weight: 201 lb Body Mass Index (BMI) 40.6 Intake and Output for Last 24 Hours 11/01/19 11/02/19 11/03/19 23:59 23:59 23:59 Intake Total 4004.59 / 4004.59 2823.34 / 2823.34 Output Total 200 / 200 570 / 570 Balance 3804.59 / 3804.59 2253.34 / 2253.34 Current Medications Acetaminophen (Tylenol) 1,000 mg PO Q6H [facility] Last Admin: 11/03/19 03:08 Dose: 1,000 mg Documented by: Bisacodyl (Dulcolax) 10 mg RECTAL UD PRN PRN Reason: If no BM Enoxaparin Sodium (Lovenox) 40 mg SC DAILY [facility] Last Admin: 11/02/19 09:32 Dose: 40 mg Documented by: Hydrocortisone (Hytone) 1 applic TOPICAL TID PRN PRN; Protocol PRN Reason: Discomfort Naloxone HCl 4 mg/ Dextrose 504 mls @ 0 mls/hr IV .Q0M PRN; Protocol PRN Reason: Respiratory depression Ibuprofen (Motrin) 600 mg PO Q6H [facility] Last Admin: 11/03/19 06:18 Dose: 600 mg Documented by: Methylergonovine Maleate (Methergine) 0.2 mg IM X1 PRN PRN Reason: Uterine Atony Last Admin: 11/01/19 18:56 Dose: 0.2 mg Documented by: Naloxone HCl (Narcan) 0.02 mg IV Q1M PRN PRN Reason: RR <10 and pt unresponsive Ondansetron HCl (Zofran) 4 mg IV Q4H PRN PRN PRN Reason: Nausea Oxycodone HCl (Oxyir) 5 - 10 mg PO Q4H PRN PRN PRN Reason: Pain Score 4-10/10 Prochlorperazine Edisylate (Compazine Iv) 10 mg IV Q6H PRN PRN PRN Reason: NAUSEA Senna/Docusate Sodium (Senokot-S, Anabell-Colace) 0 tablet PO DAILY [facility] Last Admin: 11/02/19 09:33 Dose: 1 tablet Documented by: Sertraline HCl (Zoloft) 100 mg PO DAILY [facility] Last Admin: 11/02/19 09:32 Dose: 100 mg Documented by: Simethicone (Mylicon) 80 mg PO PCHS PRN PRN Reason: Indigestion/stomach pain Sodium Chloride () 5 - 15 ml IV UD PRN PRN Reason: SALINE FLUSH Last Admin: 11/02/19 19:02 Dose: 10 ml Documented by: Medical Necessity - Tobacco Use Smoking Status: Never smoker Assessment/Plan All Active Problems 28 weeks gestation of (Acute) Pain (Acute) 41 weeks gestation of (Acute) Doing well postoperative day #2 status post primary section for failure to progress. Will discharge to home with routine instructions.
--- NOTE | 2019-11-03 09:39 | DS.PCM_ITS ---
Discharge Summary Date of Admission: 10/31/19 Date of Discharge: 11/03/19 Summary: Admission diagnosis: Postdate Intrauterine Discharge diagnosis: Postdate Intrauterine and Failure to Progress Procedure: Primary Low Transverse Cervical Section HPI: Uneventful care. PE: Unremarkable. Hospital Course: The patient is a 24 year old who presented to L and D at 41+ weeks gestation for Cytotec induction. She subsequently had a primary for failure to progress and failure to descend. Postoperatively she did well demonstrating a stable HGB on POD 1 and bowel fxn by POD 2 at which time it was felt she was ready for discharge. Homegoing Instruction: She was instructed not to drive for several days or if using narcotic pain medication, not to put anything in the vagina for 4 weeks, not to lift >25 lbs for 6 weeks and to call the office for an appointment in 2 weeks and 6 weeks. Discharge Medications: She was given a prescription for Oxycodone and Colace and also plans to use Aleve or Motrin or Tylenol at home as needed for pain and constipation. Patient Problems: Active and Suspected Problems 41 weeks gestation of (Acute) - Physical Exam Vitals/I&O's: Vital Signs Temp Pulse Resp BP Pulse Ox 98.0 F 88 16 84/47 L 97 11/03/19 07:50 11/03/19 07:50 11/03/19 07:50 11/03/19 07:50 11/03/19 07:50 Oxygen Delivery Method Room Air Weight: 201 lb Body Mass Index (BMI) 40.6 Intake and Output for Last 24 Hours 11/01/19 11/02/19 11/03/19 23:59 23:59 23:59 Intake Total 4004.59 / 4004.59 2823.34 / 2823.34 Output Total 200 / 200 570 / 570 Balance 3804.59 / 3804.59 2253.34 / 2253.34 Current Medications Acetaminophen (Tylenol) 1,000 mg PO Q6H [facility]S [facility]CLUDE 234 BEDS AT [facility] Last Admin: 11/03/19 09:38 Dose: 1,000 mg Documented by: Bisacodyl (Dulcolax) 10 mg RECTAL UD PRN PRN Reason: If no BM Enoxaparin Sodium (Lovenox) 40 mg SC DAILY [facility] 234 BEDS AT [facility] Last Admin: 11/02/19 09:32 Dose: 40 mg Documented by: Hydrocortisone (Hytone) 1 applic TOPICAL TID PRN PRN; Protocol PRN Reason: Discomfort Naloxone HCl 4 mg/ Dextrose 504 mls @ 0 mls/hr IV .Q0M PRN; Protocol PRN Reason: Respiratory depression Ibuprofen (Motrin) 600 mg PO Q6H COUNTS INCLUDE 234 BEDS AT [facility] Last Admin: 11/03/19 06:18 Dose: 600 mg Documented by: Methylergonovine Maleate (Methergine) 0.2 mg IM X1 PRN PRN Reason: Uterine Atony Last Admin: 11/01/19 18:56 Dose: 0.2 mg Documented by: Naloxone HCl (Narcan) 0.02 mg IV Q1M PRN PRN Reason: RR <10 and pt unresponsive Ondansetron HCl (Zofran) 4 mg IV Q4H PRN PRN PRN Reason: Nausea Oxycodone HCl (Oxyir) 5 - 10 mg PO Q4H PRN PRN PRN Reason: Pain Score 4-10/10 Prochlorperazine Edisylate (Compazine Iv) 10 mg IV Q6H PRN PRN PRN Reason: NAUSEA Senna/Docusate Sodium (Senokot-S, Anabell-Colace) 0 tablet PO DAILY [facility] 234 BEDS [facility] Last Admin: 11/03/19 09:38 Dose: 2 tablet Documented by: Sertraline HCl (Zoloft) 100 mg PO DAILY [facility]CLUDE 234 BEDS AT [facility] Last Admin: 11/03/19 09:38 Dose: 100 mg Documented by: Simethicone (Mylicon) 80 mg PO [facility] PRN PRN Reason: Indigestion/stomach pain Sodium Chloride () 5 - 15 ml IV UD PRN PRN Reason: SALINE FLUSH Last Admin: 11/02/19 19:02 Dose: 10 ml Documented by:
--- NOTE | 2019-11-03 13:08 | CASEMGMT ---
Social Work Labor and Delivery unit Help me grow referral submitted through the [facility] assisted care web-based referral system. [] No other services requested or indicated. -JOHANNE Jorgensen, CERTIFIED REGISTERED NURSE ANESTHETIST. *Information documented in this note generated via [employer] system*
[2019-11-03 13:18] VITALS: BP 97/53; PULSE 94; RESP 16; TEMP 36.4; O2SAT 97
[2019-11-03] MEDS: oxyCODONE 5 MG Tablet PO (16:06)
== END 2019-11-03 17:10 | disposition home or self-care (01) | DRG 788 ==
PROVIDERS: Admitting Provider Obstetrics & Gynecology; PCP Nurse Practitioner Family; Referring Provider Obstetrics & Gynecology; Visit Provider Obstetrics & Gynecology
DX: O62.2 Other uterine inertia (principal); O48.0 Post-term pregnancy; O36.63X0 Maternal care for excessive fetal growth, third trimester, not applicable or unspecified; O77.0 Labor and delivery complicated by meconium in amniotic fluid; O32.4XX0 Maternal care for high head at term, not applicable or unspecified; O26.813 Pregnancy related exhaustion and fatigue, third trimester; O26.23 Pregnancy care for patient with recurrent pregnancy loss, third trimester; O99.214 Obesity complicating childbirth; E66.01 Morbid (severe) obesity due to excess calories; O99.344 Other mental disorders complicating childbirth; F32.9 Major depressive disorder, single episode, unspecified; F41.9 Anxiety disorder, unspecified; Z3A.41 41 weeks gestation of pregnancy; Z37.0 Single live birth
CPT/HCPCS: 59025; 59050; 85025; 85027; 86850; 86900; 86901; 87491; 87591; 87635; 94799; 99218; 99251; J7120; A4216; G0378; G0463; J2405; U0003

== ENCOUNTER → 2019-12-22 | Outpatient (CLI) | payer MEDICAID, SELFPAY ==
[2019-10-31 19:18] VITALS: BMI 40.6
[2019-12-29 17:43] LABS: HPV Reflexed? NOT INDICATED
== END | disposition home or self-care (01) ==
LOC: LABSPEC 15:09
PROVIDERS: PCP Nurse Practitioner Family; Visit Provider Obstetrics & Gynecology
DX: Z12.4 Encounter for screening for malignant neoplasm of cervix (principal)
CPT/HCPCS: 88175; G0145

== ENCOUNTER 2020-04-29 15:40 | Emergency (ER) | payer MEDICAID, SELFPAY ==
[2019-10-31 19:18] VITALS: BMI 40.6
[2020-04-29 15:41] VITALS: BP 101/58; PULSE 88; RESP 16; TEMP 36.6; O2SAT 96; BMI 33.7
--- NOTE | 2020-04-29 16:09 | ED.VIS.GEN ---
History of Present Illness Chief Complaint: Lower Extremity Injury Informant: Patient Onset: Today Narrative: 24-year-old female arriving for the evaluation of left foot ecchymosis. The patient the trauma can recall was about 2 to 3 weeks ago when she rolled her ankle. She states that today she noticed some purple skin on her heel. She states is very painful to walk on it. - Past Medical History (1) Depression Status: Chronic Past Medical History - Allergies and Home Meds Allergies/Adverse Reactions: Allergies megestrol Allergy (Verified 04/29/20 15:41) shortness of breath, hives Primary Care Physician: Gisela Noriega SALES TRAINING COORDINATOR, SALES TRAINING COORDINATOR-C [Primary Care Provider] - Surgical History: noncontributory Smoking Status: Never smoker Drugs: None Review of Systems General: Denies: Chills, Fever, Sweats Eyes: Denies: Visual changes - bilaterally, Diplopia ENT: Denies: Rhinorrhea, Sore throat Cardiovascular: Denies: Chest pain, Palpitations Respiratory: Denies: Dyspnea, Cough, Dyspnea on exertion Gastrointestinal: Denies: Abdominal pain, Nausea, Vomiting, Diarrhea, Melena, Hematochezia Genitourinary: Denies: Dysuria, Hematuria, Frequency Musculoskeletal: Reports: Extremity Pain. Denies: Back pain Skin: Denies: Rash, Wounds Neurological: Denies: Headache, Weakness, Numbness Physical Exam Vital Signs/Narrative: Vital Signs Temp Pulse Resp BP Pulse Ox 04/29/20 15:41 97.8 F 88 16 101/58 L 96 Inital Vital Signs reviewed: Yes General: Well nourished, Well developed, No Acute Distress Head: Normocephalic, Atraumatic Eyes: Perrl, EOMI ENT: Moist mucous membranes, No rhinorrhea Neck: Supple, Nontender Cardiovascular: Regular rate, Regular rhythm, No murmurs Respiratory: No distress, CTA bilaterally, Chest nontender Abdomen: Soft, Nontender, Nondistended, Normal bowel sounds Back: Nontender, Normal Inspection Extremities: No edema Skin: Normal color, No rash, Trauma - Full ecchymosis to the medial and lateral heel on the left. Reports tenderness to palpation. The heel however soft. No deformities. Neurovascular intact. Neurological: Alert, Oriented x3, Cranial nerves II-XII grossly intact, Normal Strength, Normal Sensation Psychological: Normal affect, Normal Mood Diagnostic/Tx/Re-eval Clinical Impression(s) from Imaging Studies Foot X-Ray 04/29/20 16:15 IMPRESSION: 1. No fracture or erosive changes. 2. Forefoot soft tissue swelling. Electronically Signed: Salvatore Lynn MD (Brooks) at 16:29 EST , Service support , - Medical Decision Making Foot x-rays were negative for fracture. Patient does not relate any trauma. She has ecchymosis of the heel. On that I recommend some supportive care. If possible she broke a vein on about bumping it but she does not relay that type of history. I think this should be self-limited and heal up without any difficulty but if not follow with primary care in 1 week ED Disposition - Plan for ED Patient: Disposition: Home or Assisted Living Diagnosis: Bruised sole of foot Instructions: ED Soft Tissue Contusion Referrals: Gisela Noriega SALES TRAINING COORDINATOR, SALES TRAINING COORDINATOR-C [Primary Care Provider] - 1 Week if not improving
--- NOTE | 2020-04-29 16:15 | RAD_ITS ---
STUDY: X-RAY - LEFT FOOT CLINICAL: Female, 24 years old. bruising, pain, and swelling in left foot. nki. TECHNIQUE: 3 view(s) of the foot. COMPARISON: None. FINDINGS: Normal talus, calcaneus, and tarsal bones. Normal visualized subtalar, talonavicular, calcaneocuboid, tarsal and tarsometatarsal articulations. Normal metatarsi. Normal metatarsophalangeal joint of the great toe. Normal tibial and fibular sesamoid bones. Normal interphalangeal joint of the great toe. Normal phalanges of the great toe. Normal second through fifth metatarsophalangeal joints. There is flexion of the toes. Soft tissue swelling of the forefoot. RAD/Foot min 3 Views IMPRESSION: 1. No fracture or erosive changes. 2. Forefoot soft tissue swelling. Electronically Signed: Salvatore Lynn MD (Brooks) at 16:29 EST , Service support ,
== END 2020-04-29 16:51 | disposition home or self-care (01) ==
PROVIDERS: Emergency Provider Emergency Medicine; PCP Nurse Practitioner Family
DX: S90.32XA Contusion of left foot, initial encounter (principal); X58.XXXA Exposure to other specified factors, initial encounter
CPT/HCPCS: 73630; 99283

== ENCOUNTER 2021-02-09 21:30 | Emergency (ER) | payer MEDICAID, SELFPAY ==
[2021-02-09 21:31] VITALS: BP 148/89; PULSE 88; RESP 16; TEMP 36.3; O2SAT 99; BMI 42.2
[2021-02-09 21:43] VITALS: O2SAT 98
--- NOTE | 2021-02-09 21:49 | RAD_ITS ---
STUDY: X-RAY CHEST REASON FOR EXAM: Female, 25 years old. sob TECHNIQUE: AP COMPARISON: 06/14/2015 FINDINGS: The lungs are clear and expanded. There is no demonstrated pleural abnormality. Normal size heart. Normal mediastinum and flori. Normal visualized pulmonary arteries. Normal visualized aortic arch and descending thoracic aorta. Normal visualized thoracic spine. Normal visualized ribs, clavicles, and shoulders. There is no demonstrated abnormality of the visualized soft tissue structures of the upper abdomen. RAD/Chest 1 View (Portable) IMPRESSION: Nonacute portable x-ray examination of the chest. Electronically Signed: Salvatore Lynn MD (Brooks) at 22:05 EST , Service support ,
[2021-02-09] MEDS: Meclizine HCl 25 MG Tablet PO (21:59)
[2021-02-09 22:06] LABS: Absolute Lymphocyte Count 2.97 X10^3/uL (0.83-4.51); Absolute Neutrophil Count 10.2 X10^3/uL (2.0-7.7); Basophil# 0.05 X10^3/uL; Basophil% 0.4 % (0-1); Eosinophil# 0.17 X10^3/uL; Eosinophils% 1.2 % (0-5); Hematocrit 44.3 % (37-47); Hemoglobin 13.9 g/dL (12.0-15.0); Lymphocyte # 2.97 X10^3/ul (0.83-4.51); Lymphocyte % 20.8 % (19-41); Mean Corp Hgb Conc 31.4 g/dL (32-36); Mean Corpuscular Hgb 28.3 pg (27.0-32.0); Mean Platelet Vol. 8.5 fl (6.2-12.0); Monocyte# 0.71 X10^3/uL; NRBC Flagged by Analyzer 0 % (0-5); Neutrophil # 10.19 X10^3/uL (2.7-7.7); Neutrophil % 71.3 % (47-70); Platelet Count 391 K/mm3 (150-450); RBC Distribution Width CV 13.6 % (11.6-14.6); RBC Distribution Width SD 44.8 fl (35.1-43.9); Red Blood Count 4.92 M/mm3 (4.2-5.4); White Blood Count 14.3 K/mm3 (4.4-11.0)
--- NOTE | 2021-02-09 22:13 | EX.ED.DYSGE1 ---
HPI History of Present Illness Chief Complaint: Dizziness Informant: patient Onset/Context/Timing Onset: Weeks Context: Gradual Onset Timing: Intermittent Current Severity: Moderate Maximum Severity: Moderate Narrative Narrative: Patient presents secondary to intermittent dizziness. She describes feeling like she standing on a moving ship that is fine. Significant other documents problems with her balance. She is also felt short of breath the last 3 weeks. She was seen by her PCP and given an inhaler with no improvement. Tonight patient started developing some tightness across her chest which prompted her visit to the emergency room. She has not noted fever or chills. She has rare cough with clear sputum production. [facility] Medical History Anxiety and depression Hypothyroid Home Medications sertraline 100 mg PO DAILY 01/03/18 [History Last Taken 10/30/19 21:00] PNV cmb#95-ferrous fumarate-FA 1 ea PO DAILY 04/07/19 [History Last Taken 10/30/19 21:00] cholecalciferol (vitamin D3) 2,000 unit PO DAILY 04/07/19 [History Last Taken 10/30/19 21:00] docusate sodium 100 mg PO BID PRN PRN #60 cap 11/01/19 [Rx Last Taken Unknown] albuterol sulfate 2 puff INHALATION Q4H PRN PRN 02/09/21 [History Last Taken Unknown] vnbxvbgvdwubrcs-vltxcvrqc-YI 5 ml PO Q4H PRN PRN 02/09/21 [History Last Taken Unknown] meclizine [Antivert] 50 mg PO BID #14 tab 02/09/21 [Rx Last Taken Unknown] thyroid (pork) [ETHANOL QUALITY LEADER Thyroid] 30 mg PO DAILY 02/09/21 [History Last Taken Unknown] Allergy/AdvReac Type Severity Reaction Status Date / Time megestrol Allergy shortness Verified 02/09/21 21:32 of breath, hives Social History (Updated 06/15/18 @ 10:38 by Jarvis SANTA, [place]) Smoking Status: Unknown if ever smoked ROS ROS ED Constitutional Constitutional ED: Denies chills or fever(s) Eyes Eyes: Denies change in vision ENT ENT ED: Denies sore throat Cardiovascular Cardiovascular: Reports chest pain Respiratory/Chest Respiratory/Chest: Reports cough, dyspnea and sputum Gastrointestinal Gastrointestinal: Denies abdominal pain, diarrhea, nausea or vomiting Genitourinary Genitourinary ED: Denies dysuria Musculoskeletal Musculoskeletal: Denies back pain Integumentary Denies rash Neurologic Neurologic: Denies headache(s) or weakness Allergic/Immunologic Allergic/Immunologic ED: Denies urticaria EXAM Physical Exam Const Vital Signs: 02/09/21 21:31 02/09/21 21:39 02/09/21 21:43 Temperature 97.4 F L Temperature Source Temporal Pulse Rate 88 Respiratory Rate 16 Respiratory Effort Short of Breath Normal Respiratory Depth Normal Respiratory Pattern Normal Normal Blood Pressure 148/89 H Blood Pressure Mean 108 Pulse Ox 99 Oxygen Delivery Method Room Air Room Air Positive well nourished and well developed General Appearance ED: well developed HEENT Reports moist mucous membranes Eyes PERRL and EOMs intact bilaterally Neck supple Resp normal respiratory effort and clear to auscultation bilaterally Cardio regular rate and regular rhythm GI normal to inspection, nondistended, normoactive bowel sounds and non-tender Palpation: soft Neuro oriented x3 and no sensory deficits noted Sensorium / Orientation: alert Motor Exam: strength 5/5 throughout Psych mental status grossly normal Skin no rashes or lesions noted MDM MDM MDM Narrative Medical decision making narrative: EKG, chest x-ray clear, lab work, Covid test obtained. Patient given IV fluids and p.o. Antivert. Lab Data Attestation: I reviewed the patient's lab results. Labs: Laboratory Results - last 24 hr 02/09/21 02/09/21 02/09/21 21:50 21:50 21:50 WBC 14.3 H RBC 4.92 Hgb 13.9 Hct 44.3 MCV 90.0 MCH 28.3 MCHC 31.4 L RDW Std Deviation 44.8 H RDW Coeff of Kristel 13.6 Plt Count 391 MPV 8.5 Immature Gran % (Auto) 1.300 H Neut % (Auto) 71.3 H Lymph % (Auto) 20.8 [place] % (Auto) 5.0 Eos % (Auto) 1.2 Baso % (Auto) 0.4 Absolute Neuts (auto) 10.2 H Absolute Lymphs (auto) 2.97 Nucleated RBC % 0 D-Dimer Quant (PE/DVT) Sodium 138 Potassium 3.6 Chloride 107 Carbon Dioxide 24.0 Anion Gap 7 BUN 21 H Creatinine 1.14 H Estim Creat Clear Calc 110.94 Est GFR (MDRD) Af Amer 73 Est GFR (MDRD) Non-Af 61 BUN/Creatinine Ratio 18.4 Glucose 94 Calcium 9.4 Troponin I High Sens 3 Serum , Qual NEGATIVE 02/09/21 22:02 WBC RBC Hgb Hct MCV MCH MCHC RDW Std Deviation RDW Coeff of Kristel Plt Count MPV Immature Gran % (Auto) Neut % (Auto) Lymph % (Auto) [place] % (Auto) Eos % (Auto) Baso % (Auto) Absolute Neuts (auto) Absolute Lymphs (auto) Nucleated RBC % D-Dimer Quant (PE/DVT) 0.59 H* Sodium Potassium Chloride Carbon Dioxide Anion Gap BUN Creatinine Estim Creat Clear Calc Est GFR (MDRD) Af Amer Est GFR (MDRD) Non-Af BUN/Creatinine Ratio Glucose Calcium Troponin I High Sens Serum , Qual Radiography Chest X-Ray - ED: 1 View, Read by ED Physician, Normal, Heart, Lungs and Mediastinum Diagnostic Testing: Clinical Impression(s) from Imaging Studies Chest X-Ray 02/09/21 21:49 IMPRESSION: Nonacute portable x-ray examination of the chest. Electronically Signed: Salvatore Lynn MD (Brooks) at 22:05 EST , Service support , Chest CTA 02/09/21 22:39 IMPRESSION: No central or segmental pulmonary embolism. Electronically Signed: Salvatore Lynn MD (Brooks) at 23:13 EST , Service support , EKG Initial EKG: Attestation: I personally reviewed and interpreted this EKG as follows: Interpretation: Sinus Tachycardia (Sinus tach at 105. No acute ischemia.) Treatment and Re-Evaluation Comments:: Chest x-ray is unremarkable. Blood work significant for elevated D-dimer at 0.59. White count is elevated at 14.3 and when comparing to prior labs has been elevated to similar level in the past. Patient sent for CTA of the chest. This is unremarkable with no evidence of PE. On repeat evaluation patient resting comfortably. Heart rate is 88. She does report some improvement in her symptoms. She will be given a prescription for Antivert. Return instructions are provided. Discharge Plan Triage Chief Complaint: Dizziness ED Provider: Karolyn Vogt Dx/Rx/DC Orders Clinical Impression: Vertigo, Chest pain Instructions: ED Chest Pain, Noncardiac, ED BPV Vertigo Prescriptions: New Antivert 50 mg tablet 50 mg PO BID Qty: 14 RF: 0 No Action sertraline 100 MG tablet 100 mg PO DAILY RF: 0 cholecalciferol (vitamin D3) 1,000 UNIT tablet 2,000 unit PO DAILY RF: 0 PNV cmb#95-ferrous fumarate-FA 1 EACH tablet 1 ea PO DAILY RF: 0 docusate sodium 100 MG capsule 100 mg PO BID PRN PRN (Reason: Constipation) Qty: 60 RF: 1 albuterol sulfate 90 mcg/actuation HFA aerosol inhaler 2 puff INHALATION Q4H PRN PRN (Reason: Shortness Of Breath Or Wheezing) RF: 0 kwpjqlqhbwtftfm-opwjijwop-OR 2-30-10 mg/5 mL syrup 5 ml PO Q4H PRN PRN (Reason: Cough) RF: 0 thyroid (pork) [ETHANOL QUALITY LEADER Thyroid] 30 mg tablet 30 mg PO DAILY RF: 0 Primary Care Provider: Gisela Noriega NP Referrals: Gisela Noriega NP, ETHANOL QUALITY LEADER-C [Primary Care Provider] - 1 Week if not improving Disposition Disposition: Home, Self Care
[2021-02-09 22:21] LABS: Internal QC Validated? YES +Cl - CLEAR BKGD
[2021-02-09 22:26] LABS: Pregnancy, Serum, hCG Quali. NEGATIVE Negative
--- NOTE | 2021-02-09 22:29 | EKG12_ITS ---
Test Reason : CP Blood Pressure : / mmHG Vent. Rate : 105 BPM Atrial Rate : 105 BPM P-R Int : 158 ms QRS Dur : 072 ms QT Int : 348 ms P-R-T Axes : 047 024 031 degrees QTc Int : 459 ms Sinus tachycardia Otherwise normal ECG Confirmed by ZULEYKA FERNANDEZ, HUMA ([id number]), newspaper managing editor GEM BURNS ([id number]) on 02/11/2021 10:59:57 AM Referred By: LATIA Confirmed By:HUMA GARDINER MD
[2021-02-09 22:30] LABS: D-Dimer Quantitative (DVT/PE) 0.59 FEU/ug/m (0.27-0.49)
[2021-02-09 22:35] LABS: Anion Gap 7 (5-15); BUN 21 mg/dL (7-18); BUN/Creat Ratio 18.4 RATIO (10-20); Calcium,Total 9.4 mg/dL (8.5-10.1); Chloride 107 mmol/L (98-107); Creatinine, Serum 1.14 mg/dL (0.55-1.02); EST Glomerular Filtration Rate 61 mL/min (>60); Est Glom Filt Rate - Afr Amer 73 mL/min (>60); Estimated Creatinine Clearance 110.94 ml/min; Glucose 94 mg/dL (74-106); Potassium 3.6 mmol/L (3.5-5.1); Sodium Level 138 mmol/L (136-145); Troponin-I HS 3 pg/mL (3.0-54.0)
--- NOTE | 2021-02-09 22:39 | CT_ITS ---
STUDY: CTA CHEST REASON FOR EXAM: Female, 25 years old. Shortness of breath and dizziness x 3 wks. New onset tightness across chest. Elevated d-dimer. RADIATION DOSAGE (If Supplied By Facility): CTDIvol = ( 12.99 ) mGy, DLP = ( 394.02 ) mGycm TECHNIQUE: The examination was performed with the intravenous administration of IV 100mL Isovue-370. Post-processing of the angiographic images was performed, with multiplanar reformation and 3D reconstruction. Individualized dose optimization techniques were used for this CT. COMPARISON: None. FINDINGS: Normal enhancement of the main pulmonary artery and right and left pulmonary arteries. Normal enhancement of the bilateral peripheral pulmonary arteries. There is no demonstrated pulmonary embolism. Normal thoracic aorta and visualized great vessels. There is no demonstrated aortic dissection. Normal heart and pericardium. Normal mediastinum. Normal hilar regions. Normal visualized trachea and bronchi. The lungs are well expanded. Normal pulmonary parenchyma. Normal pleura. Normal chest wall structures. Normal osseous structures. There is hepatomegaly with diffuse hepatic enlargement. CT/CTA Chest W/WO Contrast IMPRESSION: No central or segmental pulmonary embolism. Electronically Signed: Salvatore Lynn MD (Brooks) at 23:13 EST , Service support ,
[2021-02-09 23:37] VITALS: BP 100/75; PULSE 72; RESP 16; O2SAT 98
== END 2021-02-09 23:37 | disposition home or self-care (01) ==
PROVIDERS: Emergency Provider Emergency Medicine; PCP Nurse Practitioner Family
DX: R42 Dizziness and giddiness (principal); R07.9 Chest pain, unspecified; E03.9 Hypothyroidism, unspecified; F32.A Depression, unspecified; F41.9 Anxiety disorder, unspecified; Z79.899 Other long term (current) drug therapy
CPT/HCPCS: 71045; 71275; 80048; 84484; 84703; 85025; 85379; 87426; 93005; 96360; 99285; J7030; Q9967

== ENCOUNTER 2021-07-11 12:11 | Outpatient (CLI) | payer MEDICAID, SELFPAY ==
[2021-07-18 13:03] LABS: HPV Reflexed? NOT INDICATED
== END 2021-07-11 23:59 | disposition home or self-care (01) ==
LOC: LABSPEC 12:12
PROVIDERS: PCP Nurse Practitioner Family; Referring Provider Obstetrics & Gynecology; Visit Provider Obstetrics & Gynecology
DX: Z12.4 Encounter for screening for malignant neoplasm of cervix (principal)
CPT/HCPCS: 88175; G0145

== ENCOUNTER 2021-11-24 19:33 | Emergency (ER) | payer MEDICAID, SELFPAY ==
[2021-11-24 19:34] VITALS: BP 123/76; PULSE 109; RESP 16; TEMP 36.2; O2SAT 96; BMI 45.0
--- NOTE | 2021-11-24 20:17 | EDS_ITS ---
HPI History of Present Illness Chief Complaint: Upper Extremity Injury Informant: patient Narrative Narrative: Patient complains that she has had some soreness in her right scapular area for about a week. She does do a lot of lifting and pulling but does not recall any specific injury. No numbness tingling weakness. No shortness of breath coughing. It is worse if she reaches forward or overhead with her arm. It is also a little bit worse if she twists her body but not as much. She tried Motrin without any significant relief. No other meds tried. [facility] Medical History Anxiety and depression Hypothyroid Home Medications sertraline 100 mg tablet 100 mg PO DAILY depression 01/03/18 [History Last Taken 10/30/19 21:00] cholecalciferol (vitamin D3) 25 mcg (1,000 unit) tablet 2,000 unit PO DAILY vitamin 04/07/19 [History Last Taken 10/30/19 21:00] vit no.95-ferrous fumarate 28 mg-folic acid 800 mcg tablet 1 ea PO DAILY 04/07/19 [History Last Taken 10/30/19 21:00] docusate sodium 100 mg capsule 100 mg PO BID PRN PRN Constipation #60 caps 07/17 [Rx Last Taken Unknown] albuterol sulfate 90 mcg/actuation aerosol inhaler 2 puff inhalation Q4H PRN PRN Shortness Of Breath Or Wheezing 02/09/21 [History Last Taken Unknown] avbnvcazwgzjivt-fjtdwimcqzjqnpe-MR 2 mg-30 mg-10 mg/5 mL oral syrup 5 ml PO Q4H PRN PRN Cough 02/09/21 [History Last Taken Unknown] meclizine 50 mg tablet (Antivert) 50 mg PO BID #14 tabs 02/09/21 [Rx Last Taken Unknown] thyroid (pork) 30 mg tablet (DOOR GLASS INSTALLER Thyroid) 30 mg PO DAILY 02/09/21 [History Last Taken Unknown] cyclobenzaprine 10 mg tablet 10 mg PO BID PRN muscle spasm #10 tabs 11/24/21 [Rx Last Taken Unknown] naproxen 500 mg tablet 500 mg PO BID #14 tabs 11/24/21 [Rx Last Taken Unknown] Allergy/AdvReac Type Severity Reaction Status Date / Time megestrol Allergy shortness Verified 11/24/21 19:37 of breath, hives Social History Smoking Status: Unknown if ever smoked ROS ROS ED Constitutional Constitutional ED: Denies chills or fever(s) Eyes Eyes: Denies change in vision ENT ENT ED: Denies rhinorrhea Cardiovascular Cardiovascular: Denies chest pain, palpitations or racing heartbeat Respiratory/Chest Respiratory/Chest: Denies cough, dyspnea, dyspnea on exertion or sputum Gastrointestinal Gastrointestinal: Denies nausea or vomiting Musculoskeletal Musculoskeletal: Reports other Details: See history of present illness peer ; Denies neck pain Integumentary Denies rash Neurologic Neurologic: Denies headache(s), paresthesias or weakness Endocrine Endocrinology: Denies polydipsia or polyuria EXAM Physical Exam Const Vital Signs: 11/24/21 19:34 Temperature 97.2 F L Temperature Source Temporal Pulse Rate 109 H Respiratory Rate 16 Blood Pressure 123/76 H Blood Pressure Mean 91 Pulse Ox 96 Oxygen Delivery Method Room Air Positive well nourished and well developed General Appearance ED: well developed and NAD HEENT atraumatic Neck full ROM and supple General: Negative for tenderness Chest Wall inspection of chest normal and palpation of chest normal Resp normal respiratory effort and clear to auscultation bilaterally Resp Narrative: No pain with deep breath. Auscultation: Negative for rales, rhonchi or wheezes Cardio regular rate and regular rhythm GI non-tender Back/Spine Back/Spine Narrative: Patient has some mild tenderness at the tip of the scapula on the right. If I have her recheck her right hand up in the air and toward the middle of her body that aggravates the pain. If she holds her arm still it does not hurt. It is very reproducible with motion. There are no skin changes, bruising, abrasions, erythema, warmth or vesicles. Extremity Extremity Narrative: See above Neuro no focal motor deficits and no sensory deficits noted Sensorium / Orientation: alert Psych mental status grossly normal Skin Lesions: no lesions MDM MDM MDM Narrative Medical decision making narrative: Patient will be given Naprosyn. I will give her a few Flexeril. She should use ice and rest. We discussed reasons to return. Discharge Plan Triage Chief Complaint: Upper Extremity Injury ED Provider: Jaime Dejesus Dx/Rx/DC Orders Clinical Impression: Muscle strain of right scapular region Instructions: ED Muscle Strain, Extremity Prescriptions: New cyclobenzaprine 10 mg tablet 10 mg PO BID PRN (Reason: muscle spasm) Qty: 10 0RF naproxen 500 mg tablet 500 mg PO BID Qty: 14 0RF No Action sertraline 100 MG tablet 100 mg PO DAILY cholecalciferol (vitamin D3) 1,000 UNIT tablet 2,000 unit PO DAILY PNV cmb#95-ferrous fumarate-FA 1 EACH tablet 1 ea PO DAILY docusate sodium 100 MG capsule 100 mg PO BID PRN PRN (Reason: Constipation) Qty: 60 1RF albuterol sulfate 90 mcg/actuation HFA aerosol inhaler 2 puff INHALATION Q4H PRN PRN (Reason: Shortness Of Breath Or Wheezing) vrerhpnmmikfhdi-gpuzfwfgm-RM 2-30-10 mg/5 mL syrup 5 ml PO Q4H PRN PRN (Reason: Cough) thyroid (pork) [DOOR GLASS INSTALLER Thyroid] 30 mg tablet 30 mg PO DAILY Antivert 50 mg tablet 50 mg PO BID Qty: 14 0RF Primary Care Provider: Rene Ackerman Referrals: Rene Ackerman MD [Primary Care Provider] - 1 Week if not improving Disposition Disposition: Home, Self Care
== END 2021-11-24 20:29 | disposition home or self-care (01) ==
PROVIDERS: Emergency Provider Emergency Medicine; PCP Family Medicine; Visit Provider Emergency Medicine
DX: S46.811A Strain of other muscles, fascia and tendons at shoulder and upper arm level, right arm, initial encounter (principal); X50.0XXA Overexertion from strenuous movement or load, initial encounter; Y93.89 Activity, other specified
CPT/HCPCS: 99282

== ENCOUNTER 2021-11-25 10:26 | Emergency (ER) | payer MEDICAID, SELFPAY ==
[2021-11-25 10:27] VITALS: BP 118/85; PULSE 95; RESP 18; TEMP 36.4; O2SAT 96; BMI 48.4
--- NOTE | 2021-11-25 11:17 | EDS_ITS ---
HPI History of Present Illness HPI Narrative: Patient presents with pain over her right scapular area that became worse today. Patient was seen here for this yesterday. Patient was given a prescription for Flexeril. 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 Patient states pain became worse today so she came back to the emergency department. Patient describes her pain as sharp. Patient states it is worse with movement and better with rest. Patient states that radiates around into her chest. Patient denies any shortness of breath. Chief Complaint: Upper Extremity Injury Informant: patient Onset/Context/Timing Onset: Days Context: Gradual Onset Timing: Continuous Quality of Pain: Sharp Location: Right scapular area Worsened by: Movement Relieved by: Rest Associated Symptoms Associated Symptoms: Negative for Parasthesia, Weakness or Loss of Funtion [facility] Medical History (Updated 11/25/21 @ 11:[address] Arnold Rivera, ) Anxiety and depression Hypothyroid Home Medications sertraline 100 mg tablet 100 mg PO DAILY depression 01/03/18 [History Last Taken 10/30/19 21:00] cholecalciferol (vitamin D3) 25 mcg (1,000 unit) tablet 2,000 unit PO DAILY vitamin 04/07/19 [History Last Taken 10/30/19 21:00] vit no.95-ferrous fumarate 28 mg-folic acid 800 mcg tablet 1 ea PO DA REBA 04/07/19 [History Last Taken 10/30/19 21:00] docusate sodium 100 mg capsule 100 mg PO BID PRN PRN Constipation #60 caps 11/01/19 [Rx Last Taken Unknown] albuterol sulfate 90 mcg/actuation aerosol inhaler 2 puff inhalation Q4H PRN PRN Shortness Of Breath Or Wheezing 02/09/21 [History Last Taken Unknown] vlrjnnluggcgpwy-bzigaqsumkodkvh-MS 2 mg-30 mg-10 mg/5 mL oral syrup 5 ml PO Q4H PRN PRN Cough 02/09/21 [History Last Taken Unknown] meclizine 50 mg tablet (Antivert) 50 mg PO BID #14 tabs 02/09/21 [Rx Last Taken Unknown] thyroid (pork) 30 mg tablet (HERBARIUM CURATOR Thyroid) 30 mg PO DAILY 02/09/21 [History Last Taken Unknown] cyclobenzaprine 10 mg tablet 10 mg PO BID PRN muscle spasm #10 tabs 11/24/21 [Rx Last Taken Unknown] naproxen 500 mg tablet 500 mg PO BID #14 tabs 11/24/21 [Rx Last Taken Unknown] Allergy/AdvReac Type Severity Reaction Status Date / Time megestrol Allergy shortness Verified 11/25/21 10:30 of breath, hives Surgical History (Updated 11/25/21 @ 11:[address] Arnold Rivera, ) H/O section Hx of laparoscopy Social History Smoking Status: Current every day smoker tobacco type: cigarettes ROS ROS ED Constitutional Constitutional ED: Denies chills or fever(s) Eyes Eyes: Denies blurry vision or change in vision ENT ENT ED: Denies rhinorrhea or sore throat Cardiovascular Cardiovascular: Reports chest pain; Denies palpitations Respiratory/Chest Respiratory/Chest: Denies cough or dyspnea Gastrointestinal Gastrointestinal: Denies nausea or vomiting Genitourinary Genitourinary ED: Denies dysuria or hematuria Musculoskeletal Musculoskeletal: Reports back pain; Denies neck pain Integumentary Denies abscess or rash Neurologic Neurologic: Denies headache(s) or weakness Allergic/Immunologic Allergic/Immunologic ED: Denies mouth swelling or urticaria EXAM Physical Exam Const Vital Signs: 11/25/21 10:27 Temperature 97.6 F L Temperature Source Temporal Pulse Rate 95 Respiratory Rate 18 Blood Pressure 118/85 H Blood Pressure Mean 96 Pulse Ox 96 Oxygen Delivery Method Room Air Positive well nourished and well developed General Appearance ED: well developed and NAD HEENT Reports moist mucous membranes Neck supple and no JVD Resp normal respiratory effort and clear to auscultation bilaterally Cardio regular rate, regular rhythm and no murmurs GI normal to inspection, nondistended, normoactive bowel sounds and non-tender Palpation: soft Back/Spine Back/Spine Narrative: There is tenderness over the right parascapular area. There is no bony crepitance or step-off. There is no deformity noted. Range of motion was slightly limited in all motions of the right shoulder secondary to pain. Strength is 5/5 in the upper extremities bilaterally. There are no sensory deficits noted. Radial pulses are equal. Extremity normal to inspection General Extremety ED: Negative for edema or tenderness General Extremity: Negative for edema Neuro oriented x3, CN's II-XII intact bilaterally and no sensory deficits noted Sensorium / Orientation: alert Motor Exam: strength 5/5 throughout Psych mental status grossly normal Skin no rashes or lesions noted MDM MDM MDM Narrative Medical decision making narrative: Patient requested an x-ray. PA and lateral chest x-ray was obtained. There are 2 views. On my interpretation, there is no acute cardiopulmonary process. Radiologist also interpreted the x-ray and agrees. Patient was instructed to fill her prescriptions and take them as prescribed. Patient was given a dose of Naprosyn here. Patient understood and was agreeable with plan. All questions were answered. Discharge Plan Triage Chief Complaint: Upper Extremity Injury ED Provider: Arnold Rivera Dx/Rx/DC Orders Clinical Impression: Muscle strain of right scapular region, Morbid obesity with BMI of 45.0-49.9, adult Instructions: ED Shoulder Sprain Prescriptions: No Action sertraline 100 MG tablet 100 mg PO DAILY cholecalciferol (vitamin D3) 1,000 UNIT tablet 2,000 unit PO DAILY PNV cmb#95-ferrous fumarate-FA 1 EACH tablet 1 ea PO DAILY docusate sodium 100 MG capsule 100 mg PO BID PRN PRN (Reason: Constipation) Qty: 60 1RF albuterol sulfate 90 mcg/actuation HFA aerosol inhaler 2 puff INHALATION Q4H PRN PRN (Reason: Shortness Of Breath Or Wheezing) wbppenqcrrnwkvy-isjcvwwnr-FZ 2-30-10 mg/5 mL syrup 5 ml PO Q4H PRN PRN (Reason: Cough) thyroid (pork) [HERBARIUM CURATOR Thyroid] 30 mg tablet 30 mg PO DAILY Antivert 50 mg tablet 50 mg PO BID Qty: 14 0RF cyclobenzaprine 10 mg tablet 10 mg PO BID PRN (Reason: muscle spasm) Qty: 10 0RF naproxen 500 mg tablet 500 mg PO BID Qty: 14 0RF Primary Care Provider: Rene Ackerman Referrals: Rene Ackerman MD [Primary Care Provider] - 5-7 Days Disposition Disposition: Home, Self Care
--- NOTE | 2021-11-25 11:24 | RAD_ITS ---
STUDY: X-RAY CHEST REASON FOR EXAM: Female, 26 years old. Pain TECHNIQUE: PA aerated AP and lateral COMPARISON: 02/09/2021 FINDINGS: The lungs demonstrate new mild right infrahilar atelectasis or fibrosis. Left lung is clear. There is no demonstrated pleural abnormality. Normal size heart. Normal mediastinum and flori. Normal visualized pulmonary arteries. Normal visualized aortic arch and descending thoracic aorta. Normal visualized thoracic spine. Normal visualized ribs, clavicles, and shoulders. There is no demonstrated abnormality of the visualized soft tissue structures of the upper abdomen. RAD/Chest PA and Lateral IMPRESSION: New mild right infrahilar atelectasis or fibrosis. Electronically Signed: Edmund Jean Baptiste MD, MIL at 11:56 EDT ,
[2021-11-25] MEDS: Naproxen 250 MG Tablet 500 MG PO (11:51)
== END 2021-11-25 12:40 | disposition home or self-care (01) ==
PROVIDERS: Emergency Provider Emergency Medicine; PCP Family Medicine; Visit Provider Emergency Medicine
DX: S29.012A Strain of muscle and tendon of back wall of thorax, initial encounter (principal); E66.01 Morbid (severe) obesity due to excess calories; Z68.42 Body mass index [BMI] 45.0-49.9, adult; F17.210 Nicotine dependence, cigarettes, uncomplicated; F41.9 Anxiety disorder, unspecified; F32.A Depression, unspecified; X58.XXXA Exposure to other specified factors, initial encounter; Z79.899 Other long term (current) drug therapy
CPT/HCPCS: 71046; 99283

== ENCOUNTER 2021-12-04 18:10 | Emergency (ER) | payer MEDICAID, SELFPAY ==
[2021-12-04 18:12] VITALS: BP 125/87; PULSE 113; RESP 20; TEMP 36.5; O2SAT 99; BMI 47.1
--- NOTE | 2021-12-04 18:44 | RAD_ITS ---
STUDY: X-RAY CHEST REASON FOR EXAM: Female, 26 years old. Shortness of breath. Sent in from primary care office complaining of blood clot. TECHNIQUE: Single AP portable view of the chest. COMPARISON: 11/25/2021 FINDINGS: The lungs are clear and expanded. There is no demonstrated pleural abnormality. Normal size heart. Normal mediastinum and flori. Normal visualized pulmonary arteries. Normal visualized aortic arch and descending thoracic aorta. Normal visualized thoracic spine. Normal visualized ribs, clavicles, and shoulders. There is no demonstrated abnormality of the visualized soft tissue structures of the upper abdomen. RAD/Chest 1 View (Portable) IMPRESSION: No acute cardiopulmonary disease or major interval change. Electronically Signed: Pranav Mendiola DO at 19:44 EDT ,
[2021-12-04 18:48] LABS: Absolute Lymphocyte Count 2.21 X10^3/uL (0.83-4.51); Absolute Neutrophil Count 10.1 X10^3/uL (2.0-7.7); Basophil# 0.04 X10^3/uL; Basophil% 0.3 % (0-1); Eosinophil# 0.14 X10^3/uL; Eosinophils% 1.1 % (0-5); Hematocrit 45.6 % (37-47); Hemoglobin 14.8 g/dL (12.0-15.0); Lymphocyte # 2.21 X10^3/ul (0.83-4.51); Lymphocyte % 16.9 % (19-41); Mean Corp Hgb Conc 32.5 g/dL (32-36); Mean Corpuscular Hgb 29.7 pg (27.0-32.0); Mean Corpuscular Volume 91.4 fL (81-99); Monocyte# 0.48 X10^3/uL; Monocyte% 3.7 % (0-10); NRBC Flagged by Analyzer 0 % (0-5); Neutrophil # 10.08 X10^3/uL (2.7-7.7); Neutrophil % 76.9 % (47-70); Platelet Count 316 K/mm3 (150-450); RBC Distribution Width CV 13.9 % (11.6-14.6); RBC Distribution Width SD 45.9 fl (35.1-43.9); Red Blood Count 4.99 M/mm3 (4.2-5.4); White Blood Count 13.1 K/mm3 (4.4-11.0)
[2021-12-04 19:05] LABS: Anion Gap 10 (5-15); BUN 9 mg/dL (7-18); BUN/Creat Ratio 10.2 RATIO (10-20); Calcium,Total 10.1 mg/dL (8.5-10.1); Chloride 104 mmol/L (98-107); Creatinine, Serum 0.88 mg/dL (0.55-1.02); EST Glomerular Filtration Rate 81 mL/min (>60); Est Glom Filt Rate - Afr Amer 98 mL/min (>60); Estimated Creatinine Clearance 159.12 ml/min; Glucose 110 mg/dL (74-106); Potassium 3.8 mmol/L (3.5-5.1); Sodium Level 139 mmol/L (136-145)
[2021-12-04 19:12] LABS: D-Dimer Quantitative (DVT/PE) 6.33 FEU/ug/m (0.27-0.49)
[2021-12-04 19:29] LABS: Internal QC Validated? YES +Cl - CLEAR BKGD; Pregnancy, Serum, hCG Quali. NEGATIVE Negative
--- NOTE | 2021-12-04 19:30 | EDS_ITS ---
HPI History of Present Illness Chief Complaint: Shortness of Breath Detail of Chief Complaint: Sent in by primary care provider for elevated D- dimer. Informant: patient Onset/Context/Timing Onset: Weeks Context: gradual Timing: Intermittent Quality: Positive for Dyspnea on exertion Current Severity: Mild Maximum Severity: Mild Relieved by: Nothing Associated Symptoms Negative for cough, rhinorrhea, post nasal drip, ear pain, fever, sore throat, subjective, chills, sweats, clear sputum, white sputum or yellow sputum Chest Pain: Positive for Intermittent and Stabbing; Negative for Dull, Aching, Burning, Pressure or Tightness Narrative Narrative: 26-year-old female past medical history depression. Has had intermittent shortness of breath for 2 weeks with right shoulder blade and right-sided chest pain. Saw her primary care provider they did get a D-dimer which was elevated and sent in the ER for further evaluation. She is never had a DVT or PE. No recent travel or surgery. No leg pain or swelling. No hemoptysis. Nothing particular makes the pain better or worse. She denies any fever. No significant cough. No leg pain or swelling non-smoker. She is on control. PE Risk Factors: Negative for Cancer, OCP + Smoking + > 35, Prior DVT or PE, Recent immobilization, Recent surgery or Recent travel Prior similar symptoms: No Recent Illness/Hospitalization: No PFSH PFSH Medical History Anxiety and depression Hypothyroid Home Medications sertraline 100 mg tablet 100 mg PO DAILY depression 01/03/18 [History Last Taken 10/30/19 21:00] cholecalciferol (vitamin D3) 25 mcg (1,000 unit) tablet 2,000 unit PO DAILY vitamin 04/07/19 [History Last Taken 10/30/19 21:00] vit no.95-ferrous fumarate 28 mg-folic acid 800 mcg tablet 1 ea PO DAILY 04/07/19 [History Last Taken 10/30/19 21:00] docusate sodium 100 mg capsule 100 mg PO BID PRN PRN Constipation #60 caps 11/01/19 [Rx Last Taken Unknown] albuterol sulfate 90 mcg/actuation aerosol inhaler 2 puff inhalation Q4H PRN PRN Shortness Of Breath Or Wheezing 02/09/21 [History Last Taken Unknown] ivlktdjywydyrvm-rkczwufdthlhled-IZ 2 mg-30 mg-10 mg/5 mL oral syrup 5 ml PO Q4H PRN PRN Cough 02/09/21 [History Last Taken Unknown] meclizine 50 mg tablet (Antivert) 50 mg PO BID #14 tabs 02/09/21 [Rx Last Taken Unknown] thyroid (pork) 30 mg tablet (DIRECTOR OF SPECIAL EVENTS Thyroid) 30 mg PO DAILY 02/09/21 [History Last Taken Unknown] cyclobenzaprine 10 mg tablet 10 mg PO BID PRN muscle spasm #10 tabs 11/24/21 [Rx Last Taken Unknown] naproxen 500 mg tablet 500 mg PO BID #14 tabs 11/24/21 [Rx Last Taken Unknown] Allergy/AdvReac Type Severity Reaction Status Date / Time megestrol Allergy shortness Verified 12/04/21 18:12 of breath, hives Surgical History H/O section Hx of laparoscopy Social History Smoking Status: Never smoker ROS ROS ED ROS Narrative Shortness of breath. Atypical chest and right back pain. Review of Systems ROS Unobtainable: Denies due to encephalopathy Constitutional Constitutional ED: Denies chills or fever(s) Eyes Eyes: Denies blurry vision ENT ENT ED: Denies ear pain Cardiovascular Cardiovascular: Reports chest pain Respiratory/Chest Respiratory/Chest: Reports dyspnea; Denies cough Gastrointestinal Gastrointestinal: Denies abdominal pain Genitourinary Genitourinary ED: Denies dysuria or hematuria Musculoskeletal Musculoskeletal: Denies arthralgias Integumentary Denies abscess Neurologic Neurologic: Denies headache(s) Psychiatric Psychiatric: Denies anxiety Endocrine Endocrinology: Denies cold intolerance Hematologic/Lymphatic Hematologic/Lymphatic: Denies easy bleeding Allergic/Immunologic Allergic/Immunologic ED: Denies mouth swelling or tongue swelling EXAM Physical Exam Narrative Exam Narrative: 26-year-old female no acute distress. Vital signs stable afebrile. Pulse ox 9 9% on room air no hypoxia. H EENT exam unremarkable. Neck nontender. No lymphadenopathy. No JVD. Lungs clear to auscultation bilaterally. Heart reg ular rhythm rate about 110 no murmur. Chest wall nontender. Abdomen soft nontender. Moving all 4 extremities. Calves are nontender without edema or cords. Equal and symmetrical. Const Vital Signs: 12/04/21 18:12 12/04/21 19:20 12/04/21 22:05 Temperature 97.7 F L Temperature Source Temporal Pulse Rate 113 H Respiratory Rate 20 H Respiratory Effort Short of Breath Respiratory Depth Normal Respiratory Pattern Normal Blood Pressure 125/87 H Blood Pressure Mean 99 Pulse Ox 99 100 Oxygen Delivery Method Room Air Room Air Positive well nourished, well developed and obese; Negative for cachectic, contractures or unkempt General Appearance ED: well developed and NAD; Negative for unkempt, cachectic, contractures or pallor Nutritional Appearance: obese; Negative for cachectic HEENT Reports moist mucous membranes atraumatic; Negative for trauma Eyes PERRL and EOMs intact bilaterally General Eye ED: Negative for pale conjunctiva or scleral icterus Neck no lymphadenopathy, supple, no meningeal signs and no JVD General: Negative for tenderness Resp normal respiratory effort and clear to auscultation bilaterally Effort and Inspection: Negative for pain with movement Auscultation: Negative for rales, rhonchi or wheezes Cardio regular rate, regular rhythm, S1 normal heart sound, S2 normal heart sound and no murmurs Rate: Negative for bradycardia Rhythm: Negative for abnormal rhythm GI non-tender, non-distended and no masses Auscultation: normoactive bowel sounds Palpation: soft; Negative for tender Bladder / Kidney Exam: other Back/Spine no CVA tenderness and normal to inspection General Back: Negative for CVA tenderness Extremity normal to inspection General Extremety ED: Negative for edema or tenderness General Extremity: Negative for edema Neuro oriented x3, CN's II-XII intact bilaterally and no sensory deficits noted Sensorium / Orientation: alert, oriented to person, oriented to place and oriented to time Speech: speech normal Motor Exam: strength 5/5 throughout Psych mental status grossly normal Appearance: Negative for unkempt Attitude: No agitated Mood & Affect: Negative for depressed Thought Process: normal thought process Skin no wounds and skin turgor normal General Skin Exam: Negative for jaundice or pallor Lesions: no lesions Rashes: no rashes Trauma: Negative for abrasion MDM MDM MDM Narrative Medical decision making narrative: 26-year-old female atypical chest and back pain. Will be worked up for possible pulmonary embolus. Nurses already placed triage labs. Repeat exam patient is doing well at 10:20 PM. She will be discharged home with outpatient follow-up. I went over all of her labs and imaging with her. Lab Data Attestation: I reviewed the patient's lab results. Lab results narrative: CBC shows white count 13.1. H&H 14.8 and 45. Platelets 316. D-dimer elevated 6.33. Electrolytes unremarkable gap of 10 normal BUN and creatinine. Glucose 110. Serum test negative. CTA as read by the radiologist shows no PE. No dissection. Unremarkable. Labs: Laboratory Results - last 24 hr 12/04/21 12/04/21 12/04/21 18:40 18:40 18:40 WBC 13.1 H RBC 4.99 Hgb 14.8 Hct 45.6 MCV 91.4 MCH 29.7 MCHC 32.5 RDW Std Deviation 45.9 H RDW Coeff of Kristel 13.9 Plt Count 316 MPV 9.0 Immature Gran % (Auto) 1.100 H Neut % (Auto) 76.9 H Lymph % (Auto) 16.9 L [place] % (Auto) 3.7 Eos % (Auto) 1.1 Baso % (Auto) 0.3 Absolute Neuts (auto) 10.1 H Absolute Lymphs (auto) 2.21 Nucleated RBC % 0 D-Dimer Quant (PE/DVT) 6.33 H* Sodium 139 Potassium 3.8 Chloride 104 Carbon Dioxide 25.0 Anion Gap 10 BUN 9 Creatinine 0.88 Estim Creat Clear Calc 159.12 Est GFR (MDRD) Af Amer 98 Est GFR (MDRD) Non-Af 81 BUN/Creatinine Ratio 10.2 Glucose 110 H Calcium 10.1 Serum , Qual 12/04/21 18:40 WBC RBC Hgb Hct MCV MCH MCHC RDW Std Deviation RDW Coeff of Kristel Plt Count MPV Immature Gran % (Auto) Neut % (Auto) Lymph % (Auto) [place] % (Auto) Eos % (Auto) Baso % (Auto) Absolute Neuts (auto) Absolute Lymphs (auto) Nucleated RBC % D-Dimer Quant (PE/DVT) Sodium Potassium Chloride Carbon Dioxide Anion Gap BUN Creatinine Estim Creat Clear Calc Est GFR (MDRD) Af Amer Est GFR (MDRD) Non-Af BUN/Creatinine Ratio Glucose Calcium Serum , Qual NEGATIVE Radiography Chest X-Ray - ED: 1 View, Read by ED Physician, Heart, Lungs, Mediastinum, Bony Structures, No Acute Disease and Chronic Changes Diagnostic Testing: Clinical Impression(s) from Imaging Studies Chest X-Ray 12/04/21 18:44 IMPRESSION: No acute cardiopulmonary disease or major interval change. Electronically Signed: Pranav MendiolaDO at 19:44 EDT Reading Location ID and State: [address] [place] [address] Tel [phone], Service support , Chest CTA 12/04/21 19:35 IMPRESSION: 1. Normal CTA chest examination, without a demonstrated pulmonary embolism or arterial dissection. 2. Stable hepatomegaly with fatty infiltration. Electronically Signed: Pranav Mendiola DO at 20:58 EDT Reading Location ID and State: [address] [place] [address] Tel [phone], Service support , Rhythm Strip Rhythm Strip: Sinus Rhythm Rate: 99 Ectopy: None EKG Initial EKG: Attestation: I personally reviewed and interpreted this EKG as follows: Interpretation: Sinus Rhythm and No Acute Injury Pattern Comments: Normal sinus rhythm. Rate of 99. No acute signs of FL, is chemia or dysrhythmia. Discharge Plan Triage Chief Complaint: Shortness of Breath ED Provider: Tres Cox Dx/Rx/DC Orders Clinical Impression: Acute dyspnea, Chest pain Instructions: ED Dyspnea Prescriptions: No Action sertraline 100 MG tablet 100 mg PO DAILY cholecalciferol (vitamin D3) 1,000 UNIT tablet 2,000 unit PO DAILY PNV b#95-ferrous fumarate-FA 1 EACH tablet 1 ea PO DAILY docusate sodium 100 MG capsule 100 mg PO BID PRN PRN (Reason: Constipation) Qty: 60 1RF albuterol sulfate 90 mcg/actuation HFA aerosol inhaler 2 puff INHALATION Q4H PRN PRN (Reason: Shortness Of Breath Or Wheezing) tuzfrajafnqvfvr-cuyfdjxay-TU 2-30-10 mg/5 mL syrup 5 ml PO Q4H PRN PRN (Reason: Cough) thyroid (pork) [DIRECTOR OF SPECIAL EVENTS Thyroid] 30 mg tablet 30 mg PO DAILY Antivert 50 mg tablet 50 mg PO BID Qty: 14 0RF cyclobenzaprine 10 mg tablet 10 mg PO BID PRN (Reason: muscle spasm) Qty: 10 0RF naproxen 500 mg tablet 500 mg PO BID Qty: 14 0RF Primary Care Provider: Rene Ackerman Referrals: Rene Ackerman MD [Primary Care Provider] - 3-5 Days if not improving Activity Restrictions/Additional Instructions: Other than your elevated D-dimer your tests were normal. Your chest x-ray and CAT scan your chest were unremarkable. Follow-up with your primary care provider. Disposition Disposition: Home, Self Care
--- NOTE | 2021-12-04 19:35 | CT_ITS ---
STUDY: CTA CHEST REASON FOR EXAM: Female, 26 years old. No evidence of breath. Elevated d-dimer. RADIATION DOSAGE (If Supplied By Facility): CTDIvol = ( 12.46 ) mGy, DLP = ( 430.45 ) mGycm TECHNIQUE: The examination was performed with the intravenous administration of IV 100mL Isovue-370. Post-processing of the angiographic images was performed, with multiplanar reformation and 3D reconstruction. Individualized dose optimization techniques were used for this CT. COMPARISON: CTA of the chest, 02/09/2021. Chest, 12/04/2020. FINDINGS: Normal enhancement of the main pulmonary artery and right and left pulmonary arteries. Normal enhancement of the bilateral peripheral pulmonary arteries. There is no demonstrated pulmonary embolism. Normal thoracic aorta and visualized great vessels. There is no demonstrated aortic dissection. Normal heart and pericardium. No coronary artery calcifications. Normal mediastinum. Normal hilar regions. Normal visualized trachea and bronchi. The lungs are well expanded. Normal pulmonary parenchyma. Normal pleura. Normal chest wall structures. Normal osseous structures. Enlarged fatty infiltrated liver without mass. The upper abdomen is otherwise grossly normal. CT/CTA Chest W/WO Contrast IMPRESSION: 1. Normal CTA chest examination, without a demonstrated pulmonary embolism or arterial dissection. 2. Stable hepatomegaly with fatty infiltration. Electronically Signed: Pranav Mendiola DO at 20:58 EDT Reading Location ID and State: [address] [place] [address] Tel [phone], Service support ,
[2021-12-04 22:05] VITALS: O2SAT 100
--- NOTE | 2021-12-04 22:23 | EKG12_ITS ---
Test Reason : DYSRHYTHMIA Blood Pressure : / mmHG Vent. Rate : 099 BPM Atrial Rate : 099 BPM P-R Int : 170 ms QRS Dur : 078 ms QT Int : 338 ms P-R-T Axes : 043 021 024 degrees QTc Int : 433 ms Normal sinus rhythm Normal ECG Confirmed by NOLAN FERNANDEZ, PIPE ([id number]), editor farm journal VERONIQUE IRAHETA ([id number]) on 12/06/2021 10:01:09 AM Referred By: EMMA Confirmed By:MICAELA FRANCISCO MD
[2021-12-04 22:38] VITALS: BP 108/76; PULSE 67; RESP 18; O2SAT 99
== END 2021-12-04 22:39 | disposition home or self-care (01) ==
PROVIDERS: Emergency Provider Emergency Medicine; PCP Family Medicine; Visit Provider Emergency Medicine
DX: R06.00 Dyspnea, unspecified (principal); R07.9 Chest pain, unspecified; E66.9 Obesity, unspecified
CPT/HCPCS: 71045; 71275; 80048; 84703; 85025; 85379; 93005; 99283; Q9967; A4216

== ENCOUNTER → 2021-12-04 | Outpatient (CLI) | payer MEDICAID, SELFPAY ==
[2021-12-04 15:58] LABS: D-Dimer Quantitative (DVT/PE) 4.14 FEU/ug/m (0.27-0.49)
== END | disposition home or self-care (01) ==
LOC: LABSPEC 15:08
PROVIDERS: PCP Family Medicine; Visit Provider Family Medicine
DX: R07.9 Chest pain, unspecified (principal)
CPT/HCPCS: 85379

== ENCOUNTER 2021-12-06 15:45 | Emergency (ER) | payer MEDICAID, SELFPAY ==
[2021-12-06 15:46] VITALS: BP 150/90; PULSE 130; RESP 18; TEMP 35.6; O2SAT 97; BMI 47.0
--- NOTE | 2021-12-06 16:00 | EKG12_ITS ---
Test Reason : HEART PALPITATIONS Blood Pressure : / mmHG Vent. Rate : 119 BPM Atrial Rate : 119 BPM P-R Int : 158 ms QRS Dur : 072 ms QT Int : 316 ms P-R-T Axes : 053 019 019 degrees QTc Int : 444 ms Sinus tachycardia Otherwise normal ECG Confirmed by ZULEYKA FERNANDEZ, HUMA ([id number]), health editor GEM BURNS ([id number]) on 12/09/2021 10:53:16 AM Referred By: Confirmed By:HUMA GARDINER MD
--- NOTE | 2021-12-06 16:07 | EX.ED.DYSGE1 ---
HPI History of Present Illness Chief Complaint: Palpitations Narrative Narrative: Patient presents with palpitations. She has a history of palpitations, this is chronic and recurrent but does not have an appointment with her technology applications engineer till January she is not on any medications for this. She was seen just 2 days ago she had normal CBC CMP and a CT angiogram of the chest. She has no other symptoms. She has no back pain or tearing sensation. She has had Holter monitors which only showed sinus tachycardia and relatively unremarkable echocardiogram. [facility] Medical History Anxiety and depression Hypothyroid Home Medications sertraline 100 mg tablet 100 mg PO DAILY depression 01/03/18 [History Last Taken 10/30/19 21:00] cholecalciferol (vitamin D3) 25 mcg (1,000 unit) tablet 2,000 unit PO DAILY vitamin 04/07/19 [History Last Taken 10/30/19 21:00] vit no.95-ferrous fumarate 28 mg-folic acid 800 mcg tablet 1 ea PO DAILY 04/07/19 [History Last Taken 10/30/19 21:00] docusate sodium 100 mg capsule 100 mg PO BID PRN PRN Constipation #60 caps 11/01/19 [Rx Last Taken Unknown] albuterol sulfate 90 mcg/actuation aerosol inhaler 2 puff inhalation Q4H PRN PRN Shortness Of Breath Or Wheezing 02/09/21 [History Last Taken Unknown] hfflbpobsfvhjvo-yfesppvxvjeyioc-IA 2 mg-30 mg-10 mg/5 mL oral syrup 5 ml PO Q4H PRN PRN Cough 02/09/21 [History Last Taken Unknown] meclizine 50 mg tablet (Antivert) 50 mg PO BID #14 tabs 02/09/21 [Rx Last Taken Unknown] thyroid (pork) 30 mg tablet (MEASUREMENT AND VERIFICATION ENGINEER Thyroid) 30 mg PO DAILY 02/09/21 [History Last Taken Unknown] cyclobenzaprine 10 mg tablet 10 mg PO BID PRN muscle spasm #10 tabs 11/24/21 [Rx Last Taken Unknown] naproxen 500 mg tablet 500 mg PO BID #14 tabs 11/24/21 [Rx Last Taken Unknown] metoprolol tartrate 25 mg tablet 25 mg PO BID #14 tabs 12/06/21 [Rx Last Taken Unknown] Allergy/AdvReac Type Severity Reaction Status Date / Time megestrol Allergy shortness Verified 12/04/21 18:12 of breath, hives Surgical History H/O section Hx of laparoscopy Social History Smoking Status: Never smoker ROS ROS ED ROS Narrative Past medical history: Reviewed Medications: Reviewed Social history: Noncontributory Review of systems: All systems negative except as indicated General: No fever Eyes: No visual changes ENT: No upper airway congestion, normal voice Neck: No neck pain Cardiovascular: No chest pain. Palpitations as in HPI Respiratory: No shortness of breath or cough Gastrointestinal: No abdominal pain, nausea vomiting or diarrhea Genitourinary: No dysuria Musculoskeletal: Denies myalgias no difficulty with ambulation Skin: No rash Neurological: No memory loss, confusion or any focal weakness Psych: No recent behavioral changes Hematologic: No easy bleeding or easy bruising EXAM Physical Exam Narrative Exam Narrative: Physical exam General: Well nourished, Well developed, No Acute Distress Head: Normocephalic, Atraumatic Eyes: Conjunctiva not pale ENT: Moist mucous membranes Neck: Supple, Nontender, No lymphadenopathy Cardiovascular: Regular tachycardia, no obvious murmur Respiratory: No distress, CTA bilaterally Abdomen: Soft, Nontender, Nondistended Back: Nontender, Normal Inspection. Negative for: CVA tenderness Extremities: Nontender, No edema Skin: Normal color, No rash Neurological: Alert, Normal Strength, Normal Sensation Psychological: Normal affect Const Vital Signs: 12/06/21 15:46 12/06/21 15:46 Temperature 96.0 F L 96.0 F L Temperature Source Temporal Temporal Pulse Rate 130 H 130 H Respiratory Rate 18 18 Blood Pressure 150/90 H 150/90 H Blood Pressure Mean 110 110 Pulse Ox 97 97 Oxygen Delivery Method Room Air Room Air [facility] EKG Initial EKG: Comments: Sinus rhythm with a rate of 119. Normal MN and QTc intervals. No ischemic changes. Normal EKG otherwise Interpreted by emergency DrMishel Treatment and Re-Evaluation Narrative: Patient has sinus tachycardia this is chronic and recurrent I will try her refer her to our technology applications engineer but otherwise I believe since she has had it chronic small dose of beta-alonso is not unreasonable until she can see cardiology. Discharge Plan Triage Chief Complaint: Palpitations ED Provider: Braydon Saldivar Dx/Rx/DC Orders Clinical Impression: Tachycardia, Palpitation Instructions: Understanding Tachycardia Prescriptions: New metoprolol tartrate 25 mg tablet 25 mg PO BID Qty: 14 0RF No Action sertraline 100 MG tablet 100 mg PO DAILY cholecalciferol (vitamin D3) 1,000 UNIT tablet 2,000 unit PO DAILY PNV cmb#95-ferrous fumarate-FA 1 EACH tablet 1 ea PO DAILY docusate sodium 100 MG capsule 100 mg PO BID PRN PRN (Reason: Constipation) Qty: 60 1RF albuterol sulfate 90 mcg/actuation HFA aerosol inhaler 2 puff INHALATION Q4H PRN PRN (Reason: Shortness Of Breath Or Wheezing) ylfgzmsfvhiiuoq-puzljhwab-SZ 2-30-10 mg/5 mL syrup 5 ml PO Q4H PRN PRN (Reason: Cough) thyroid (pork) [MEASUREMENT AND VERIFICATION ENGINEER Thyroid] 30 mg tablet 30 mg PO DAILY Antivert 50 mg tablet 50 mg PO BID Qty: 14 0RF cyclobenzaprine 10 mg tablet 10 mg PO BID PRN (Reason: muscle spasm) Qty: 10 0RF naproxen 500 mg tablet 500 mg PO BID Qty: 14 0RF Primary Care Provider: Rene Ackerman Referrals: Edwin Biswas MD [Med Staff - Active Staff] - 3-5 Days Rene Ackerman MD [Primary Care Provider] - Disposition Disposition: Home, Self Care
[2021-12-06] MEDS: Metoprolol(XL)Succ 50 MG Tablet PO (16:36)
== END 2021-12-06 16:39 | disposition home or self-care (01) ==
PROVIDERS: Emergency Provider Emergency Medicine; PCP Family Medicine; Visit Provider Emergency Medicine
DX: R00.0 Tachycardia, unspecified (principal); R00.2 Palpitations
CPT/HCPCS: 93005; 99283; A4216

== ENCOUNTER 2022-06-07 22:55 | Emergency (ER) | payer MEDICAID, SELFPAY ==
[2022-06-07 22:55] VITALS: BP 131/88; PULSE 101; RESP 16; TEMP 36.2
[2022-06-07 22:56] VITALS: BP 131/88; PULSE 101; RESP 18; TEMP 36.2; BMI 48.3
[2022-06-07] MEDS: Mag Hydrox/Al Hydrox/Simeth 30 ML UDC PO (23:21)
--- NOTE | 2022-06-07 23:33 | EX.ED.DYSGE1 ---
HPI History of Present Illness Chief Complaint: Edema Detail of Chief Complaint: Patient presents because of swelling to upper and lower extremity and epiga Informant: patient Onset/Context/Timing Onset: Weeks Context: Sudden Onset Timing: Intermittent Quality: Edema and pain Location: Upper and lower extremity and epigastric area Current Severity: Moderate ( with regards to the epigastric pain) Maximum Severity: Moderate Worsened by: Palpation possibly food Relieved by: Nothing Associated Symptoms Associated Symptoms: Nausea Narrative Narrative: Patient is a 26-year-old morbidly obese woman who is undergoing work-up for her edema, weight gain. Patient is on pork thyroid tablets. Her TSH May 01 was within normal range. Repeat 1 week ago was elevated at 9.64. Patient's physician did a significant rheumatologic work-up with no abnormalities noted other than an elevated ESR and sed rate. There is also inflammatory changes noted on 2 view chest x-ray. She has been seen by pulmonology. A CT of the chest was ordered to be done as an outpatient. There is no family history of autoimmune disorder. Considered in the differential is sarcoidosis. Patient denies fever, chills night sweats. Patient does report arthralgias. She denies headache, visual, ocular auditory symptoms. She denies change in voice. She denies cardiac or respiratory symptoms. She denies hematemesis, melena hematochezia. She denies food intolerance. She denies urologic symptoms. She denies vaginal bleeding. She is on control pills. She is also on iron. Prior similar symptoms: Yes Recent Illness/Hospitalization: Yes [facility] Medical History Anxiety and depression Chest pain Hypothyroid Obesity, Class III, BMI 40-49.9 (morbid obesity) Pes cavus Home Medications sertraline 100 mg tablet 100 mg PO DAILY depression 01/03/18 [History Last Taken 10/30/19 21:00] cholecalciferol (vitamin D3) 25 mcg (1,000 unit) tablet 2,000 unit PO DAILY vitamin 04/07/19 [History Last Taken 10/30/19 21:00] docusate sodium 100 mg capsule 100 mg PO BID PRN PRN Constipation #60 caps 11/01/19 [Rx Last Taken Unknown] thyroid (pork) 30 mg tablet (NAMED ACCOUNT EXECUTIVE Thyroid) 30 mg PO DAILY 02/09/21 [History Last Taken Unknown] cyclobenzaprine 10 mg tablet 10 mg PO BID PRN muscle spasm #10 tabs 11/24/21 [Rx Last Taken Unknown] metoprolol tartrate 25 mg tablet 25 mg PO BID #14 tabs 12/06/21 [Rx Last Taken Unknown] ferrous sulfate 325 mg (65 mg iron) tablet (FeroSul) 325 mg PO BID 01/24/22 [History Last Taken Unknown] norgestimate 0.25 mg-ethinyl estradiol 35 mcg tablet 1 tab PO DAILY 01/24/22 [History Last Taken Unknown] thyroid (pork) 15 mg tablet ([place] Thyroid) 15 mg PO DAILY 01/24/22 [History Last Taken Unknown] pantoprazole 40 mg tablet,delayed release (Protonix) 40 mg PO DAILY #14 tabs 06/07/22 [Rx Last Taken Unknown] Allergy/AdvReac Type Severity Reaction Status Date / Time megestrol Allergy shortness Verified 01/29/22 14:28 of breath, hives azithromycin AdvReac Intermediate Upset Verified 01/29/22 14:28 Stomach Family History Grandmother Cancer Surgical History H/O section Hx of laparoscopy Hx of ovarian cyst Social History Smoking Status: Never smoker alcohol intake: never substance use type: does not use ROS ROS ED Constitutional Constitutional ED: Reports other Details: 5 pound weight gain ; Denies chills, fever(s), subjective, sweats or weight loss Eyes Eyes: Denies blurry vision, change in vision or diplopia ENT ENT ED: Denies ear pain, rhinorrhea or sore throat Cardiovascular Cardiovascular: Denies chest pain, palpitations or racing heartbeat Respiratory/Chest Respiratory/Chest: Denies cough, dyspnea or dyspnea on exertion Gastrointestinal Gastrointestinal: Reports abdominal pain and nausea; Denies constipation, diarrhea, melena or vomiting Genitourinary Genitourinary ED: Denies dysuria, hematuria or urinary frequency Musculoskeletal Musculoskeletal: Denies arthralgias, back pain, myalgias or neck pain Integumentary Denies Abrasions or rash Neurologic Neurologic: Denies headache(s), paresthesias or weakness Psychiatric Psychiatric: Denies anxiety, depression, suicidal ideation or suicidal thoughts Endocrine Endocrinology: Denies cold intolerance or heat intolerance Hematologic/Lymphatic Hematologic/Lymphatic: Reports systems reviewed and no addt'l complaints, except as documented EXAM Physical Exam Const Vital Signs: 06/07/22 22:56 06/07/22 22:55 06/07/22 23:02 Temperature 97.2 F L 97.2 F L Temperature Source Temporal Temporal Pulse Rate 101 H 101 H Respiratory Rate 18 16 Respiratory Effort Short of Breath Respiratory Pattern Normal Blood Pressure 131/88 H 131/88 H Blood Pressure Mean 102 102 Positive well nourished, well developed and obese General Appearance ED: well developed, NAD and pallor; Negative for cyanotic or diaphoretic Nutritional Appearance: obese HEENT Reports moist mucous membranes HEENT Narrative: Head is normocephalic atraumatic. Ears normal. TMs normal. Nares patent. Uvula midline. No erythema or exudate of the posterior pharynx. Eyes PERRL and EOMs intact bilaterally General Eye ED: Negative for pale conjunctiva or scleral icterus Neck no lymphadenopathy, supple and no JVD Chest Wall inspection of chest normal and palpation of chest normal Resp normal respiratory effort and clear to auscultation bilaterally Cardio regular rate, regular rhythm, S1 normal heart sound, S2 normal heart sound and no murmurs GI normal to inspection, nondistended, normoactive bowel sounds, non-distended and no masses; Negative for non-tender or hepatosplenomegaly Palpation: soft and tender epigastric; Negative for splenomegaly, mass or rebound tenderness present Back/Spine no CVA tenderness Cervical Spine: Negative for cervical spine tenderness Thoracic Spine / Upper Back: Negative for thoracic spinal tenderness Lumbar Spine / Lower Back: Negative for lumbar spinal tenderness Extremity Extremity Narrative: Patient does have slight edema of her lower extremities. This has not improved with diuretic since it is my opinion this is due to her hypothyroidism. Neuro oriented x3, CN's II-XII intact bilaterally and no sensory deficits noted Neuro Narrative: Reflexes are 1+. There is no true delay in the relaxation phase of the ankle reflex. Sensorium / Orientation: alert Psych mental status grossly normal Skin no rashes or lesions noted, no wounds and skin turgor normal General Skin Exam: elasticity normal and pallor; Negative for jaundice MDM MDM MDM Narrative Medical decision making narrative: Patient's had a significant work-up over the past month. Based on her laboratory results I believe her thyroid test, TSH is fluctuating because she is on pork thyroid and not levothyroxine. Absorption is erratic and potency is erratic. This would explain her edema and 5 pound weight gain. Suspect the epigastric pain is due to either gastritis or reflux or esophagitis. She received a GI cocktail. Since she had a significant work-up with no evidence anemic, elevated liver enzymes and normal lipase no other testing was done. History & Record Review Discussion w/independent historian: Patient Additional record(s) reviewed:: Prior outpatient record (Numerous results from the [facility] over the past 1 to 2 months) and Prior labs Rhythm Strip Rhythm Strip: Sinus Rhythm Rate: 99 Ectopy: None Treatment and Re-Evaluation :: Patient was reassessed at 2345. Her abdominal pain has resolved. Will place patient on PPI. She is scheduled for outpatient CT for June 09. Also recommend she speak with Dr. Ackerman regarding changing her thyroid medicine from pork thyroid to levothyroxine. Discharge Plan Triage Chief Complaint: Edema ED Provider: LeonardoKarlos Dx/Rx/DC Orders Clinical Impression: Hypothyroidism, Obesity, Class III, BMI 40-49.9 (morbid obesity), Tachycardia, Mild peripheral edema, Acute epigastric pain Instructions: ED Hypothyroidism, ED Epigastric Pain Uncertain Cause Prescriptions: New pantoprazole [Protonix] 40 mg tablet,delayed release (DR/EC) 40 mg PO DAILY Qty: 14 0RF No Action norgestimate-ethinyl estradiol 0.25-35 mg-mcg tablet 1 tab PO DAILY ferrous sulfate [FeroSul] 325 mg (65 mg iron) tablet 325 mg PO BID Label Comments: take 1 tablet by mouth twice a day WITH MEALS thyroid (pork) [[place] Thyroid] 15 mg tablet 15 mg PO DAILY sertraline 100 MG tablet 100 mg PO DAILY cholecalciferol (vitamin D3) 1,000 UNIT tablet 2,000 unit PO DAILY docusate sodium 100 MG capsule 100 mg PO BID PRN PRN (Reason: Constipation) Qty: 60 1RF thyroid (pork) [NAMED ACCOUNT EXECUTIVE Thyroid] 30 mg tablet 30 mg PO DAILY cyclobenzaprine 10 mg tablet 10 mg PO BID PRN (Reason: muscle spasm) Qty: 10 0RF metoprolol tartrate 25 mg tablet 25 mg PO BID Qty: 14 0RF Primary Care Provider: Rene Ackerman Referrals: Rene Ackerman MD [Primary Care Provider] - 3-5 Days Activity Restrictions/Additional Instructions: 1. Contact Dr. Ackerman regarding your thyroid medication. Your levels may be fluctuating because you are on thyroid pork instead of levothyroxine. 2. Keep scheduled appointment for CAT scan Disposition Disposition: Home, Self Care
== END 2022-06-07 23:59 | disposition home or self-care (01) ==
PROVIDERS: Emergency Provider Emergency Medicine; PCP Family Medicine; Visit Provider Emergency Medicine
DX: E03.9 Hypothyroidism, unspecified (principal); E66.01 Morbid (severe) obesity due to excess calories; Z68.42 Body mass index [BMI] 45.0-49.9, adult; F32.A Depression, unspecified; R60.0 Localized edema; R00.0 Tachycardia, unspecified; R10.13 Epigastric pain; Z79.899 Other long term (current) drug therapy
CPT/HCPCS: 99283

== ENCOUNTER → 2022-09-03 | Outpatient (CLI) | payer MEDICAID, SELFPAY ==
[2022-09-03 12:12] LABS: Absolute Lymphocyte Count 2.11 X10^3/uL (0.83-4.51); Absolute Neutrophil Count 6.7 X10^3/uL (2.0-7.7); Basophil# 0.06 X10^3/uL; Basophil% 0.6 % (0-1); Hematocrit 42.6 % (37-47); Hemoglobin 13.5 g/dL (12.0-15.0); Lymphocyte # 2.11 X10^3/ul (0.83-4.51); Lymphocyte % 22.1 % (19-41); Mean Corp Hgb Conc 31.7 g/dL (32-36); Mean Corpuscular Hgb 29.5 pg (27.0-32.0); Monocyte# 0.49 X10^3/uL; Monocyte% 5.1 % (0-10); NRBC Flagged by Analyzer 0 % (0-5); Neutrophil % 70.2 % (47-70); Platelet Count 354 K/mm3 (150-450); RBC Distribution Width CV 13.3 % (11.6-14.6); RBC Distribution Width SD 45.3 fl (35.1-43.9); Red Blood Count 4.58 M/mm3 (4.2-5.4); White Blood Count 9.6 K/mm3 (4.4-11.0)
[2022-09-03 12:39] LABS: Estradiol 62.9 pg/mL; Follicle Stimulating Hormone 5.7 mIU/mL; Prolactin 7.2 ng/mL
[2022-09-11 12:09] LABS: Testosterone, % Free 1.42 % (0.50-2.80); Testosterone, Free 0.47 ng/dL (0.10-0.85); Testosterone, Total 33 ng/dL (13-71)
== END | disposition home or self-care (01) ==
LOC: WOBLAB 11:03
PROVIDERS: PCP Family Medicine; Visit Provider Nurse Practitioner Women's Health
DX: N93.9 Abnormal uterine and vaginal bleeding, unspecified (principal)
CPT/HCPCS: 36415; 82670; 83001; 83002; 84144; 84146; 84402; 84403; 85025

== ENCOUNTER 2022-09-05 17:10 | Emergency (ER) | payer MEDICAID, SELFPAY ==
[2022-09-05 17:11] VITALS: BP 134/78; PULSE 77; RESP 19; TEMP 36.4; O2SAT 100; BMI 48.4
--- NOTE | 2022-09-05 17:50 | EX.ED.DYSGE1 ---
HPI History of Present Illness Chief Complaint: Neuro S/Sx Detail of Chief Complaint: Intermittent shocking sensation left upper extremity greater than right and Informant: patient Onset/Context/Timing Onset: Yesterday Context: Sudden Onset Timing: Intermittent Quality: Per HPI narrative Location: Per HPI narrative Current Severity: Gone Maximum Severity: Moderate Worsened by: Nothing Relieved by: Nothing Associated Symptoms Associated Symptoms: Diarrhea since EGD Narrative Narrative: Patient is a 26-year-old woman with a BMI of 48.5, depression, hypothyroidism and reflux who underwent EGD by Dr. Mary Carlisle yesterday and reportedly dilation. She states upon awakening from the anesthetic she has had intermittent numbness in the left lower extremity a shocking sensation in the left upper extremity that is greater than the shocking sensation she has in the right upper extremity. She does complain of bifrontal head pain with no double vision, blurred vision or loss of vision. She denies trouble with speech or swallowing. She has ringing or ears or decreased hearing. She denies chest pain or shortness of breath. She denies abdominal pain. She denies vomiting. She does report diarrhea. She states has had several episodes. She has not noted blood or mucus in the diarrhea. The affluent is not black or maroon in color. She denies any urologic symptoms. She denies history of MS or any neurologic problem. She does acknowledge that she was on her left side when the EGD was performed. Her left upper extremity was above her head. Presently she has no numbness in her left leg or shocking sensation in her right or left upper extremity. Prior similar symptoms: No Recent Illness/Hospitalization: Yes [facility] Medical History (Reviewed 07/29/22 @ 13:08 by Ale Everett IDENTITY ACCESS MANAGEMENT ARCHITECT, IDENTITY ACCESS MANAGEMENT ARCHITECT-C) Anxiety and depression Chest pain Hypothyroid Obesity, Class III, BMI 40-49.9 (morbid obesity) Pes cavus Home Medications sertraline 100 mg tablet 100 mg PO DAILY depression 01/03/18 [History Last Taken 10/30/19 21:00] cholecalciferol (vitamin D3) 25 mcg (1,000 unit) tablet 2,000 unit PO DAILY vitamin 04/07/19 [History Last Taken 10/30/19 21:00] ferrous sulfate 325 mg (65 mg iron) tablet (FeroSul) 325 mg PO BID 01/24/22 [History Last Taken Unknown] norgestimate 0.25 mg-ethinyl estradiol 35 mcg tablet 1 tab PO DAILY 01/24/22 [History Last Taken Unknown] pantoprazole 40 mg tablet,delayed release (Protonix) 40 mg PO DAILY #14 tabs 06/07/22 [Rx Last Taken Unknown] furosemide 20 mg tablet (Lasix) 20 mg PO DAILY 07/29/22 [History Last Taken Unknown] levothyroxine 75 mcg capsule 75 mcg PO DAILY 07/29/22 [History Last Taken Unknown] metoprolol tartrate 25 mg tablet 50 mg PO BID 07/29/22 [History Last Taken Unknown] Allergy/AdvReac Type Severity Reaction Status Date / Time megestrol Allergy shortness Verified 09/05/22 17:11 of breath, hives azithromycin AdvReac Intermediate Upset Verified 09/05/22 17:11 Stomach Family History Grandmother Cancer Surgical History (Reviewed 07/29/22 @ 13:08 by Ale Everett IDENTITY ACCESS MANAGEMENT ARCHITECT, IDENTITY ACCESS MANAGEMENT ARCHITECT-C) H/O section Hx of laparoscopy Hx of ovarian cyst Social History Smoking Status: Never smoker alcohol intake: never substance use type: does not use ROS ROS ED Constitutional Constitutional ED: Denies chills, fever(s), subjective, sweats or weight loss Eyes Eyes: Denies blurry vision, change in vision or diplopia ENT ENT ED: Denies ear pain, rhinorrhea or sore throat Cardiovascular Cardiovascular: Denies chest pain, orthopnea, palpitations, paroxysmal nocturnal dyspnea or racing heartbeat Respiratory/Chest Respiratory/Chest: Denies cough, dyspnea, dyspnea on exertion, orthopnea or paroxysmal nocturnal dyspnea Gastrointestinal Gastrointestinal: Reports diarrhea; Denies abdominal pain, melena, nausea or vomiting Genitourinary Genitourinary ED: Denies dysuria, hematuria or urinary frequency Musculoskeletal Musculoskeletal: Denies arthralgias, back pain, myalgias or neck pain Integumentary Denies rash Neurologic Neurologic: Reports headache(s) and paresthesias; Denies weakness Psychiatric Psychiatric: Reports anxiety Endocrine Endocrinology: Denies cold intolerance or heat intolerance Hematologic/Lymphatic Hematologic/Lymphatic: Reports systems reviewed and no addt'l complaints, except as documented Allergic/Immunologic Allergic/Immunologic ED: Denies mouth swelling or tongue swelling EXAM Physical Exam Const Vital Signs: 09/05/22 17:11 Temperature 97.6 F L Temperature Source Temporal Pulse Rate 77 Respiratory Rate 19 H Blood Pressure 134/78 H Blood Pressure Mean 96 Pulse Ox 100 Oxygen Delivery Method Room Air Positive well nourished, well developed and obese Constitutional Narrative: Affect is depressed and mood is flat General Appearance ED: well developed and NAD; Negative for pallor Nutritional Appearance: obese HEENT Reports TM's clear and dry mucous membranes HEENT Narrative: Head is atraumatic and normocephalic. TMs are normal. Nares patent without discharge. Uvula is midline. There is no deviation tongue with protrusion. Mucosa slightly dry. Tympanic Membrane ED: Yes TM's clear Mouth ED: Yes dry mucous membranes Mouth: dry mucous membranes Eyes PERRL and EOMs intact bilaterally Eyes Narrative: There is no nystagmus with central gaze. There is no APD. Difficult to see fundi. Cup-to-disc ratio does appear normal and there is no obvious papilledema. General Eye ED: Negative for pale conjunctiva or scleral icterus Neck no lymphadenopathy, supple and no JVD General: Negative for tenderness Resp normal respiratory effort and clear to auscultation bilaterally Cardio regular rate, regular rhythm, S1 normal heart sound, S2 normal heart sound and no murmurs GI normal to inspection, nondistended, normoactive bowel sounds, non-tender, non-distended and no masses; Negative for hepatosplenomegaly Auscultation: normoactive bowel sounds Palpation: soft Back/Spine no CVA tenderness Extremity normal to inspection General Extremety ED: Negative for edema or tenderness General Extremity: Negative for edema Neuro oriented x3, CN's II-XII intact bilaterally and no sensory deficits noted Neuro Narrative: There is no dysmetria. Romberg with eyes open and close negative. Gait was observed and no ataxia. Able to walk on heels and toes. Tandem gait is normal. Patella, ankle, bicep, brachialis and tricep reflex are 3+. There is no clonus or Babinski sign noted there is no altered sensation. Sensorium / Orientation: alert Motor Exam: strength 5/5 throughout Psych Psych Narrative: Psychomotor skills are slow. Speech is soft and slow. Mood & Affect: depressed Skin no rashes or lesions noted, no wounds and skin turgor normal General Skin Exam: Negative for jaundice or pallor MDM MDM MDM Narrative Medical decision making narrative: Suspect patient's symptoms are due to positioning during EGD. Since she complains of diarrhea we will obtain basic metabolic panel to assess BUN/creatinine and electrolytes and specifically potassium for hypokalemia. History & Record Review Additional record(s) reviewed:: Prior outpatient record (Office visit for palpitation by Dr. Ackerman. OB records), Prior ED visit (She was seen by me May of this year for epigastric pain.) and Prior labs Lab Data Attestation: I reviewed the patient's lab results. Lab results narrative: Basic metabolic panel is normal. Labs: Laboratory Results - last 24 hr 09/05/22 15:20 Sodium 138 Potassium 3.7 Chloride 104 Carbon Dioxide 28.0 Anion Gap 6 BUN 14 Creatinine 0.90 Estim Creat Clear Calc 159.87 Est GFR (MDRD) Af Amer 96 Est GFR (MDRD) Non-Af 79 BUN/Creatinine Ratio 15.6 Glucose 89 Calcium 10.0 Treatment and Re-Evaluation :: Since patient work-up and exam is normal suspect this is due to positioning during EGD. She was instructed to contact Dr. Carlisle if this continues more than a couple days. There is no need for any additional testing and there is no need for imaging. Discharge Plan Triage Chief Complaint: Neuro S/Sx ED Provider: Karlos Patterson Dx/Rx/DC Orders Clinical Impression: Paresthesia and pain of both upper extremities, Obesity, Class III, BMI 40-49.9 (morbid obesity), Depression, GERD (gastroesophageal reflux disease), Hypothyroid, Paresthesia of left lower extremity Instructions: ED Paraesthesias Prescriptions: No Action norgestimate-ethinyl estradiol 0.25-35 mg-mcg tablet 1 tab PO DAILY ferrous sulfate [FeroSul] 325 mg (65 mg iron) tablet 325 mg PO BID Label Comments: take 1 tablet by mouth twice a day WITH MEALS levothyroxine 75 mcg capsule 75 mcg PO DAILY furosemide [Lasix] 20 mg tablet 20 mg PO DAILY metoprolol tartrate 25 mg tablet 50 mg PO BID sertraline 100 MG tablet 100 mg PO DAILY cholecalciferol (vitamin D3) 1,000 UNIT tablet 2,000 unit PO DAILY pantoprazole [Protonix] 40 mg tablet,delayed release (DR/EC) 40 mg PO DAILY Qty: 14 0RF Primary Care Provider: Rene Ackerman Referrals: Mary Carlisle MD [Med Staff - Active Staff] - 1 Week if not improving Rene Ackerman MD [Primary Care Provider] - 3-5 Days if not improving Disposition Disposition: Home, Self Care
[2022-09-05 18:41] LABS: Anion Gap 6 (5-15); BUN 14 mg/dL (7-18); BUN/Creat Ratio 15.6 RATIO (10-20); Chloride 104 mmol/L (98-107); EST Glomerular Filtration Rate 79 mL/min (>60); Est Glom Filt Rate - Afr Amer 96 mL/min (>60); Estimated Creatinine Clearance 159.87 ml/min; Glucose 89 mg/dL (74-106); Potassium 3.7 mmol/L (3.5-5.1); Sodium Level 138 mmol/L (136-145)
[2022-09-05 18:55] VITALS: BMI 48.0
== END 2022-09-05 18:57 | disposition home or self-care (01) ==
PROVIDERS: Emergency Provider Emergency Medicine; PCP Family Medicine; Visit Provider Emergency Medicine
DX: R20.2 Paresthesia of skin (principal); E66.01 Morbid (severe) obesity due to excess calories; Z68.42 Body mass index [BMI] 45.0-49.9, adult; F32.A Depression, unspecified; E03.9 Hypothyroidism, unspecified; K21.9 Gastro-esophageal reflux disease without esophagitis; Z79.899 Other long term (current) drug therapy
CPT/HCPCS: 80048; 99284

== ENCOUNTER → 2022-10-01 | Outpatient (CLI) | payer MEDICAID, SELFPAY ==
[2022-10-01 14:18] LABS: hCG Titer Quant., Serum < 1 mIU/mL (1-3)
== END | disposition home or self-care (01) ==
LOC: WOBLAB 13:35
PROVIDERS: PCP Family Medicine; Visit Provider Nurse Practitioner Women's Health
DX: N93.9 Abnormal uterine and vaginal bleeding, unspecified (principal)
CPT/HCPCS: 36415; 84702

== ENCOUNTER 2022-10-18 21:55 | Emergency (ER) | payer MEDICAID, SELFPAY ==
[2022-10-18 21:58] VITALS: BP 122/77; PULSE 94; TEMP 36.5; O2SAT 99; BMI 50.9
[2022-10-18] MEDS: 0.9% Normal Saline 1,000 ML 1000 ML IV (22:27)
[2022-10-18 22:36] LABS: Absolute Lymphocyte Count 2.54 X10^3/uL (0.83-4.51); Absolute Neutrophil Count 8.5 X10^3/uL (2.0-7.7); Basophil# 0.05 X10^3/uL; Basophil% 0.4 % (0-1); Eosinophil# 0.22 X10^3/uL; Eosinophils% 1.8 % (0-5); Hematocrit 38.1 % (37-47); Hemoglobin 12.2 g/dL (12.0-15.0); Lymphocyte # 2.54 X10^3/ul (0.83-4.51); Mean Corpuscular Hgb 29.7 pg (27.0-32.0); Mean Corpuscular Volume 92.7 fL (81-99); Mean Platelet Vol. 8.7 fl (6.2-12.0); Monocyte# 0.56 X10^3/uL; Monocyte% 4.6 % (0-10); NRBC Flagged by Analyzer 0 % (0-5); Neutrophil # 8.54 X10^3/uL (2.7-7.7); Neutrophil % 70.7 % (47-70); Platelet Count 317 K/mm3 (150-450); RBC Distribution Width CV 13.4 % (11.6-14.6); RBC Distribution Width SD 45.4 fl (35.1-43.9); Red Blood Count 4.11 M/mm3 (4.2-5.4); White Blood Count 12.1 K/mm3 (4.4-11.0)
[2022-10-18 22:50] LABS: Anion Gap 4 (5-15); BUN 12 mg/dL (7-18); BUN/Creat Ratio 12.9 RATIO (10-20); Calcium,Total 9.3 mg/dL (8.5-10.1); Chloride 106 mmol/L (98-107); Creatinine, Serum 0.93 mg/dL (0.55-1.02); EST Glomerular Filtration Rate 76 mL/min (>60); Est Glom Filt Rate - Afr Amer 92 mL/min (>60); Estimated Creatinine Clearance 162.58 ml/min; Glucose 94 mg/dL (74-106); Potassium 3.6 mmol/L (3.5-5.1); Sodium Level 138 mmol/L (136-145)
[2022-10-18 23:12] LABS: Internal QC Validated? YES +Cl - CLEAR BKGD; Pregnancy, Serum, hCG Quali. NEGATIVE Negative
--- NOTE | 2022-10-18 23:25 | EX.ED.DYSGE1 ---
HPI History of Present Illness Chief Complaint: Cellulitis Informant: patient Onset/Context/Timing Onset: Days Context: Gradual Onset Narrative Narrative: Patient presents with a wound to her abdominal wall. Patient has multiple scabbed wounds noted on her extremities and abdomen. There is an area over the mid abdomen measuring approximate 1.5 x 4 cm that appears to be a scabbed wound. Patient states she went to urgent care yesterday secondary to this wound. They cultured a small amount of drainage from it. They placed her on doxycycline. She presents today stating that she has chills and body aches. She also has significant nausea whenever she tries to take the antibiotic. She does not believe she is ever had doxycycline previously. [facility] Medical History Anxiety and depression Chest pain Hypothyroid Obesity, Class III, BMI 40-49.9 (morbid obesity) Pes cavus Home Medications sertraline 100 mg tablet 100 mg PO DAILY depression 01/03/18 [History Last Taken 10/30/19 21:00] cholecalciferol (vitamin D3) 25 mcg (1,000 unit) tablet 2,000 unit PO DAILY vitamin 04/07/19 [History Last Taken 10/30/19 21:00] ferrous sulfate 325 mg (65 mg iron) tablet (FeroSul) 325 mg PO BID 01/24/22 [History Last Taken Unknown] norgestimate 0.25 mg-ethinyl estradiol 35 mcg tablet 1 tab PO DAILY 01/24/22 [History Last Taken Unknown] pantoprazole 40 mg tablet,delayed release (Protonix) 40 mg PO DAILY #14 tabs 06/07/22 [Rx Last Taken Unknown] furosemide 20 mg tablet (Lasix) 20 mg PO DAILY 07/29/22 [History Last Taken Unknown] levothyroxine 75 mcg capsule 75 mcg PO DAILY 07/29/22 [History Last Taken Unknown] metoprolol tartrate 25 mg tablet 50 mg PO BID 07/29/22 [History Last Taken Unknown] cephalexin 500 mg capsule 500 mg PO Q6 #40 CAPSULES 10/18/22 [Rx Last Taken Unknown] sulfamethoxazole 800 mg-trimethoprim 160 mg tablet (Bactrim DS) 1 tab PO BID #20 tabs 10/18/22 [Rx Last Taken Unknown] Allergy/AdvReac Type Severity Reaction Status Date / Time megestrol Allergy shortness Verified 09/05/22 17:11 of breath, hives azithromycin AdvReac Intermediate Upset Verified 09/05/22 17:11 Stomach Family History Grandmother Cancer Surgical History H/O section Hx of laparoscopy Hx of ovarian cyst Social History Smoking Status: Never smoker alcohol intake: never substance use type: does not use ROS ROS ED Constitutional Constitutional ED: Reports chills; Denies fever(s) Eyes Eyes: Denies change in vision ENT ENT ED: Denies rhinorrhea or sore throat Cardiovascular Cardiovascular: Denies chest pain Respiratory/Chest Respiratory/Chest: Denies cough or dyspnea Gastrointestinal Gastrointestinal: Denies abdominal pain, nausea or vomiting Genitourinary Genitourinary ED: Denies dysuria Musculoskeletal Musculoskeletal: Reports myalgias; Denies back pain or extremity pain Integumentary Reports rash; Denies Abrasions Neurologic Neurologic: Denies headache(s) or weakness Psychiatric Psychiatric: Denies anxiety or depression Allergic/Immunologic Allergic/Immunologic ED: Denies lip swelling or urticaria EXAM Physical Exam Const Vital Signs: 10/18/22 21:58 10/18/22 23:27 Temperature 97.7 F L Temperature Source Temporal Pulse Rate 94 90 Respiratory Rate 16 Blood Pressure 122/77 H Blood Pressure Mean 92 Pulse Ox 99 98 Oxygen Delivery Method Room Air Positive well nourished and well developed General Appearance ED: well developed HEENT Reports moist mucous membranes Eyes PERRL and EOMs intact bilaterally Neck no lymphadenopathy Chest Wall inspection of chest normal and palpation of chest normal Resp normal respiratory effort and clear to auscultation bilaterally Cardio regular rate and regular rhythm GI GI Narrative: Abdomen soft. There is a 1.5 x 4 cm scabbed wound over the mid abdomen just inferior to the umbilicus. Minimal surrounding erythema. No drainage noted at this time. I do not appreciate any fluctuance or palpable abscess underlying the wound. There are multiple superficial scabs noted over her abdominal wall. Neuro oriented x3 and no sensory deficits noted Motor Exam: strength 5/5 throughout Psych mental status grossly normal MDM MDM MDM Narrative Medical decision making narrative: Labwork obtained to evaluate for leukocytosis, anemia, and electrolyte derangement. IV fluids provided. Lab Data Attestation: I reviewed the patient's lab results. Labs: Laboratory Results - last 24 hr 10/18/22 10/18/22 22:20 22:40 WBC 12.1 H RBC 4.11 L Hgb 12.2 Hct 38.1 MCV 92.7 MCH 29.7 MCHC 32.0 RDW Std Deviation 45.4 H RDW Coeff of Kristel 13.4 Plt Count 317 MPV 8.7 Immature Gran % (Auto) 1.500 H Neut % (Auto) 70.7 H Lymph % (Auto) 21.0 Dawson % (Auto) 4.6 Eos % (Auto) 1.8 Baso % (Auto) 0.4 Absolute Neuts (auto) 8.5 H Absolute Lymphs (auto) 2.54 Nucleated RBC % 0 Sodium 138 Potassium 3.6 Chloride 106 Carbon Dioxide 28.0 Anion Gap 4 L BUN 12 Creatinine 0.93 Estim Creat Clear Calc 162.58 Est GFR (MDRD) Af Amer 92 Est GFR (MDRD) Non-Af 76 BUN/Creatinine Ratio 12.9 Glucose 94 Calcium 9.3 Serum , Qual NEGATIVE Treatment and Re-Evaluation :: CBC was a white count of 12.1 with 70% neutrophils. Chemistry studies are unremarkable. test is negative. Given the patient has significant nausea with doxycycline we will switch her to Bactrim and Keflex. Area of erythema was previously outlined and she will continue to monitor this closely. She will follow-up with [facility] on Thursday for the results of her wound culture. Discharge Plan Triage Chief Complaint: Cellulitis ED Provider: Karolyn Vogt Dx/Rx/DC Orders Clinical Impression: Cellulitis Instructions: ED Cellulitis Prescriptions: New sulfamethoxazole-trimethoprim [Bactrim DS] 800-160 mg tablet 1 tab PO BID Qty: 20 0RF cephalexin 500 mg capsule 500 mg PO Q6 Qty: 40 0RF No Action norgestimate-ethinyl estradiol 0.25-35 mg-mcg tablet 1 tab PO DAILY ferrous sulfate [FeroSul] 325 mg (65 mg iron) tablet 325 mg PO BID Patient Comments: take 1 tablet by mouth twice a day WITH MEALS levothyroxine 75 mcg capsule 75 mcg PO DAILY furosemide [Lasix] 20 mg tablet 20 mg PO DAILY metoprolol tartrate 25 mg tablet 50 mg PO BID sertraline 100 MG tablet 100 mg PO DAILY cholecalciferol (vitamin D3) 1,000 UNIT tablet 2,000 unit PO DAILY pantoprazole [Protonix] 40 mg tablet,delayed release (DR/EC) 40 mg PO DAILY Qty: 14 0RF Primary Care Provider: Rene Ackerman Referrals: Rene Ackerman MD [Primary Care Provider] - 1 Week Disposition Disposition: Home, Self Care Discharge Date/Time: 10/19/22 00:07
[2022-10-18 23:27] VITALS: PULSE 90; RESP 16; O2SAT 98
[2022-10-19] MEDS: Smz/Tmp Ds Tablet 1 TABLET PO (00:05)
[2022-10-19] MEDS: Cephalexin 250 MG Capsule 500 MG PO (00:05)
== END 2022-10-19 00:07 | disposition home or self-care (01) ==
PROVIDERS: Emergency Provider Emergency Medicine; PCP Family Medicine; Visit Provider Emergency Medicine
DX: L03.311 Cellulitis of abdominal wall (principal)
CPT/HCPCS: 80048; 84703; 85025; 87040; 96360; 96361; 99284; J7030; A4216

== ENCOUNTER → 2022-11-18 | Outpatient (CLI) | payer MEDICAID, SELFPAY ==
--- NOTE | 2022-11-18 | VUL_PTH ---
PATIENT: AMANDO MCGEE LOC: [facility] U#:[id number] AGE/SX: 27/F ROOM: RE11/18/[address]: Dr. Joes Mcgee MD : 1995 BED: DIS: 11/18/2022 SPEC #: [id number] RECD: 11/18/22 12:02 STATUS: SOLA JULIO #: [id number] NEIL: 11/18/22 00:[address]: Jose Mcgee DEPT: SURGICAL PATHOLOGY RECD BY: Saida Zhang ENTERED: 11/18/22 13:00 SP TYPE: VULVA BX OTHR DR: Dr. Rene Ackerman MD Tissues: Vulva, NOS Procedures: Surgery Specimen Level IV HEADER OPERATION: Vulvar biopsy PRE-OP DIAGNOSIS: L28.0 TISSUE SUBMITTED: Vulvar biopsy MICROSCOPIC DIAGNOSIS Vulva, biopsy: Hyperkeratosis and minimal chronic inflammation. AM/am 11/19/22 MICROSCOPIC DESCRIPTION Slides are reviewed. GROSS DESCRIPTION Received in fixative is one container labeled with the patient's name and designated vulvar biopsy. The specimen consists of one irregular fragment of light duran soft tissue that measures 0.3 x 0.1 x 0.1 cm. The specimen is totally submitted in one cassette. / AM:domi 11/18/2022 TC:3 CPT: 55167
== END | disposition home or self-care (01) ==
LOC: LABSPEC 11:29
PROVIDERS: PCP Family Medicine; Visit Provider Obstetrics & Gynecology
DX: N90.4 Leukoplakia of vulva (principal); L28.0 Lichen simplex chronicus
CPT/HCPCS: 88305

== ENCOUNTER 2023-03-30 13:13 | Emergency (ER) | payer MEDICAID, SELFPAY ==
[2023-03-30 13:14] VITALS: BP 122/87; PULSE 120; RESP 16; TEMP 36.2; O2SAT 96; BMI 51.3
--- NOTE | 2023-03-30 13:35 | ED.VIS.DYS ---
HPI History of Present Illness Chief Complaint: Shortness of Breath [facility] Medical History Anxiety and depression Chest pain Hypothyroid Obesity, Class III, BMI 40-49.9 (morbid obesity) Pes cavus Home Medications sertraline 100 mg tablet 100 mg PO DAILY depression 01/03/18 [History Last Taken 10/30/19 21:00] cholecalciferol (vitamin D3) 25 mcg (1,000 unit) tablet 2,000 unit PO DAILY vitamin 04/07/19 [History Last Taken 10/30/19 21:00] ferrous sulfate 325 mg (65 mg iron) tablet (FeroSul) 325 mg PO BID 01/24/22 [History Last Taken Unknown] norgestimate 0.25 mg-ethinyl estradiol 35 mcg tablet 1 tab PO DAILY 01/24/22 [History Last Taken Unknown] pantoprazole 40 mg tablet,delayed release (Protonix) 40 mg PO DAILY #14 tabs 06/07/22 [Rx Last Taken Unknown] furosemide 20 mg tablet (Lasix) 20 mg PO DAILY 07/29/22 [History Last Taken Unknown] levothyroxine 75 mcg capsule 75 mcg PO DAILY 07/29/22 [History Last Taken Unknown] metoprolol tartrate 25 mg tablet 50 mg PO BID 07/29/22 [History Last Taken Unknown] cephalexin 500 mg capsule 500 mg PO Q6 #40 CAPSULES 10/18/22 [Rx Last Taken Unknown] sulfamethoxazole 800 mg-trimethoprim 160 mg tablet (Bactrim DS) 1 tab PO BID #20 tabs 10/18/22 [Rx Last Taken Unknown] oseltamivir 75 mg capsule (Tamiflu) 75 mg PO DAILY #4 caps 03/30/23 [Rx Last Taken Unknown] Allergy/AdvReac Type Severity Reaction Status Date / Time megestrol Allergy shortness Verified 03/30/23 13:15 of breath, hives azithromycin AdvReac Intermediate Upset Verified 03/30/23 13:15 Stomach Family History Grandmother Cancer Surgical History H/O section Hx of laparoscopy Hx of ovarian cyst Social History Smoking Status: Never smoker alcohol intake: never substance use type: does not use EXAM Physical Exam Const Vital Signs: 03/30/23 13:14 03/30/23 14:52 03/30/23 14:52 Temperature 97.2 F L Temperature Source Temporal Pulse Rate 120 H 100 Respiratory Rate 16 20 H Respiratory Effort Respiratory Depth Blood Pressure 122/87 H 109/56 L Blood Pressure Mean 98 73 Pulse Ox 96 93 93 Oxygen Delivery Method Room Air Room Air Room Air 03/30/23 14:52 Temperature Temperature Source Pulse Rate Respiratory Rate Respiratory Effort Short of Breath Respiratory Depth Normal Blood Pressure Blood Pressure Mean Pulse Ox Oxygen Delivery Method MDM MDM MDM Narrative Medical decision making narrative: HISTORY OF PRESENT ILLNESS: 27-year-old female here with shortness of breath, cough and fever since yesterday. Notes she has sick contacts with daughters flu positive. Cough with chest congestion, chest pain or shortness of breath. She notes her cough is nonproductive. Denies nausea or vomiting. Denies fever. Denies any headache. She also denies any bleeding diathesis. Denies any diarrhea. No urinary complaints. The patient denies recent surgery in the last 4 weeks or immobilization in the last 3 days, denies previous diagnosis of DVT or PE, hemoptysis, unilateral leg swelling or malignancy with treatment the last 6 months or palliative. No estrogen use noted. REVIEW OF SYSTEMS: Pertinent positives: Shortness of breath, cough, fever, chest pain, chest tightness Pertinent negatives: Headache, focal weakness, PHYSICAL EXAM: Nursing triage notes reviewed, Vital signs reviewed Constitutional: please see mdm HENT: MMM Eyes: Pupils equal round and reactive to light, Extraocular muscles intact Neck: No stridor, no JVD, full neck ROM Lungs: Clear to auscultation, No wheezing or rales. No increased work of breathing, no conversational dyspnea, no accessory muscle use, no nasal flaring. No respiratory distress noted Heart: Regular rate and rhythm, No murmurs, No rubs and No gallops, 2+ distal pulses (radial, femoral, posterior tibial) in all extremities Abdomen: Soft, there is no tenderness, rigidity, rebound or guarding, no obvious peritoneal signs, no palpable pulsatile abdominal masses, no auscultated abdominal bruit : No CVAT Extremities: No edema Neuro: No focal neurological deficits, cranial nerves II through XII intact, 5/5 strength in all extremities. Intact sensation to light touch in all extremities, 2+ reflexes bilateral patella tendons. Normal gait. No ataxia. Skin: No rash or lesions noted MEDICAL DECISION MAKING: Chief Complaint: Shortness of breath External records reviewed: Imaging reviewed: CT of the chest from 12/04/2021 shows no PE or aortic dissection Factors affecting care:, Palpitations, hypothyroidism GERD Social determinants of health: none History obtained from others: none Consults: none [facility] Narrative: She was initially tachycardic (this resolved with IV fluids), she was not hypoxic. I considered the following differential diagnosis: Flu, COVID, RSV, pneumonia, arrhythmia, PE Patient was treated with IV Toradol, normal saline for resuscitation and rehydration. I obtained a broad lab and imaging workup to further elucidate the etiology of the patient's complaint. ALL IMAGES (IF OBTAINED) HAVE BEEN PERSONALLY REVIEWED AND INTERPRETED BY MYSELF. CBC without leukocytosis, severe anemia, no thrombocytopenia. BMP without evidence of significant electrolyte abnormalities, no anion gap, no acute kidney injury. High-sensitivity troponin is negative, no evidence of myocardial ischemia Influenza A positive I have personally reviewed the patient's chest x-ray. Chest x-ray is unremarkable for pulmonary edema, pneumothorax, pneumonia or focal cardiopulmonary abnormality. The synthesis of the patient's history, physical exam, labs suggest influenza. Will give Tamiflu. The patient and/or family, caregivers express understanding. The patient and/or family, caregivers agrees with the plan. Shared decision making: I will have a discussion with the patient and or visitors regarding risk/benefits of further testing or admission. They will be made aware of of the risk/benefits inherent in this decision they will be given the opportunity to voice understanding. Total critical care time today provided was at least 0 minutes. This excludes separately billable procedures. Critical care time (if documented) is secondary to the patient having high probability of clinically significant/life threatening deterioration in the patient's condition which required my urgent intervention. Impression: 1. Cough 2. Tachycardia 3. Influenza A Dispo: Discharge Lab Data Labs: Laboratory Results - last 24 hr 03/30/23 14:05 WBC 6.9 RBC 4.20 Hgb 12.2 Hct 38.6 MCV 91.9 MCH 29.0 MCHC 31.6 L RDW Std Deviation 46.6 H RDW Coeff of Kristel 13.9 Plt Count 274 MPV 8.7 Immature Gran % (Auto) 2.000 H Neut % (Auto) 84.6 H Lymph % (Auto) 7.8 L Fisher % (Auto) 4.6 Eos % (Auto) 0.6 Baso % (Auto) 0.4 Absolute Neuts (auto) 5.8 Absolute Lymphs (auto) 0.54 L Nucleated RBC % 0 Differential Comment SCANNED Sodium 136 Potassium 4.2 Chloride 108 H Carbon Dioxide 24.0 Anion Gap 4 L BUN 9 Creatinine 0.84 Estim Creat Clear Calc 179.87 Est GFR (MDRD) Af Amer 103 Est GFR (MDRD) Non-Af 85 BUN/Creatinine Ratio 10.7 Glucose 101 Calcium 9.0 Troponin I High Sens < 3 L Radiography Diagnostic Testing: Clinical Impression(s) from Imaging Studies Chest X-Ray 03/30/23 14:20 IMPRESSION: No interval change and no acute or active cardiopulmonary disease. Electronically Signed: Rafael Martinez MD at 14:40 EST , Discharge Plan Triage Chief Complaint: Shortness of Breath ED Provider: González Richard Dx/Rx/DC Orders Instructions: ED Influenza (Adult) Prescriptions: New oseltamivir [Tamiflu] 75 mg capsule 75 mg PO DAILY Qty: 4 0RF No Action norgestimate-ethinyl estradiol 0.25-35 mg-mcg tablet 1 tab PO DAILY ferrous sulfate [FeroSul] 325 mg (65 mg iron) tablet 325 mg PO BID Patient Comments: take 1 tablet by mouth twice a day WITH MEALS levothyroxine 75 mcg capsule 75 mcg PO DAILY furosemide [Lasix] 20 mg tablet 20 mg PO DAILY metoprolol tartrate 25 mg tablet 50 mg PO BID sertraline 100 MG tablet 100 mg PO DAILY cholecalciferol (vitamin D3) 1,000 UNIT tablet 2,000 unit PO DAILY pantoprazole [Protonix] 40 mg tablet,delayed release (DR/EC) 40 mg PO DAILY Qty: 14 0RF sulfamethoxazole-trimethoprim [Bactrim DS] 800-160 mg tablet 1 tab PO BID Qty: 20 0RF cephalexin 500 mg capsule 500 mg PO Q6 Qty: 40 0RF Primary Care Provider: Rene Ackerman Referrals: Rene Ackerman MD [Primary Care Provider] - Activity Restrictions/Additional Instructions: Thank you for trusting us with your care today! Please take Tylenol (2 pills, 650 mg), ibuprofen (2 pills, 400 mg) every 6 hours as needed for pain and fever control. Please take Tamiflu. Please return to the emergency department if your symptoms change or worsen. Please follow with your primary care physician for further outpatient evaluation and management. Disposition Disposition: Home, Self Care Discharge Date/Time: 03/30/23 15:28
--- OUTSIDE RECORDS SUMMARY | 2023-03-30 14:03 | XMS RPT_ITS | CCD ---
Author Name Unknown Address [address] [place] [address] Organization [facility] Care Team Providers Care Steam Tender Name Role Phone Rene Doherty MD Primary Care Provider POWER ESCAMILLA Admitting Unavailable ESVIN CORREA Attending Unavailable POWER ESCAMILLA Referring Unavailable RENE DOHERTY Primary Care Unavailable ESVIN CORREA Attending Unavailable RENE DOHERTY Primary Care Unavailable Rene Doherty MD Primary Care Provider Rene Doherty MD Primary Care Provider Rene Doherty MD Primary Care Provider Rene Doherty MD Primary Care Provider PAWAN MALLOY Attending Unavailable MARY CARLISLE Referring Unavailable RENE DOHERTY Primary Care Unavailable DONNA GUZMAN CNP Referring Unavailable DONNA GUZMAN CNP Consulting Unavailable TAY LEIJA Attending Unavail able TAY LEIJA Primary Care Unavail able TAY LEIJA Admitting Unavail able PROVIDER, UNKNOWN Consulting Unavailable PROVIDER, UNKNOWN Consulting Unavailable RENE DOHERTY Referring Unavailable Nargis WOMACK Attending Unavailable RENE DOHERTY Primary Care Unavailable Cassy López Attending Unavailable RENE DOHERTY Primary Care Unavailable RENE DOHERTY Referring Unavailable RENE DOHERTY Primary Care Unavailable RENE DOHERTY Referring Unavailable RENE DOHERTY Primary Care Unavailable RENE DOHERTY Attending Unavailable RENE DOHERTY Primary Care Unavailable LUCY VAN Attending Unavailable RENE DOHERTY Referring Unavailable RENE DOHERTY Primary Care Unavailable MARY HARDIN Referring Unavailable RENE DOHERTY Primary Care Unavailable LUCY VAN Referring Unavailable KRISTIN THOMAS Attending Unavail able BESSY, RENE Wilkes Primary Care Unavailable BESSY, RENE Wilkes Attending Unavailable BESSY, RENE Wilkes Primary Care Unavailable BESSY, RENE Wilkes Primary Care Unavailable BESSY, RENE Wilkes Primary Care Unavailable ANJU FONSECA Referring Unavailable BESSY, RENE Wilkes Primary Care Unavailable ANJU FONSECA Referring Unavailable BESSY, RENE Wilkes Attending Unavailable BESSY, RENE Wilkes Primary Care Unavailable BESSY, RENE Wilkes Referring Unavailable BESSY, RENE Wilkes Primary Care Unavailable BONNIE VANH Attending Unavailable BESSY, RENE Wilkes Referring Unavailable BESSY, RENE Wilkes Primary Care Unavailable MARI, AMBREESH Referring Unavailable BESSY, RENE Wilkes Primary Care Unavailable BESSY, RENE Wilkes Primary Care Unavailable EVELIA ROSENTHAL Attending Unavailable SYLVESTER MELGOZA Referring Unavailable BESSY, RENE Wilkes Primary Care Unavailable BESSY, RENE Wilkes Referring Unavailable MARY CARLISLE Attending Unavailable BESSY, RENE Wilkes Primary Care Unavailable BESSY, RENE Wilkes Attending Unavailable RAEANN INTERIANO Referring Unavailable BESSY, RENE Wilkes Primary Care Unavailable BESSY, RENE Wilkes Primary Care Unavailable ANUSHKA TAVAREZ Attending Unavailable UMESH PATTON Referring Unavailable BESSY, RENE Wilkes Primary Care Unavailable BESSY, RENE Wilkes Referring Unavailable BESSY, RENE Wilkes Primary Care Unavailable Nargis WOMACK Attending Unavailable EVELIA ROSENTHAL Referring Unavailable BESSY, RENE Wilkes Primary Care Unavailable EVELIA ROSENTHAL Referring Unavailable BESSY, RENE Wilkes Primary Care Unavailable EVELIA ROSENTHAL Referring Unavailable BESSY, RENE Wilkes Primary Care Unavailable MARY HARDIN Attending Unavailable BESSY, RENE Wilkes Primary Care Unavailable KAROLYN CASANOVA Attending Unavailable EVELIA ROSENTHAL Referring Unavailable BESSY, RENE Wilkes Primary Care Unavailable BESSY, RENE Wilkes Referring Unavailable BESSY, RENE Wilkes Primary Care Unavailable MARI, BONNIEH Referring Unavailable BESSY, RENE Wilkes Primary Care Unavailable BESSY, RENE Wilkes Attending Unavailable BESSY, RENE Wilkes Primary Care Unavailable BESSY, RENE Wilkes Referring Unavailable BESSY, RENE Wilkes Primary Care Unavailable BESSY, RENE Wilkes Referring Unavailable BESSY, RENE Wilkes Primary Care Unavailable BESSY, RENE Wilkes Primary Care Unavailable ANJU FONSECA Referring Unavailable MARI, AMBREESH Referring Unavailable BESSY, RENE Wilkes Primary Care Unavailable UMESH PATTON Attending Unavailable BESSY, RENE Wilkes Attending Unavailable BESSY, RENE Wilkes Primary Care Unavailable BESSY, RENE Wilkes Referring Unavailable BESSY, RENE J Primary Care Unavailable RAEANN INTERIANO Attending Unavailable RENE DOHERTY Primary Care Unavailable RENE DOHERTY Referring Unavailable RENE DOHERTY Primary Care Unavailable RENE DOHERTY Attending Unavailable RENE DOHERTY Primary Care Unavailable BRAYDON ABERNATHY Attending Unavailable RENE DOHERTY Primary Care Unavailable ANJU OFNSECA Referring Unavailable Allergies Allergy Classification Reported Allergen(s) Allergy Type Date of Onset Reaction(s) Facility (20 sources) Azithromycin; Translations: [AZITHROMYCIN] Drug Allergy 9 GI Intolerance, GI Upset [facility] (20 sources) Megestrol; Translations: [MEGESTROL] Drug Allergy 9 Unknown [facility] (1 source) Azithromycin Drug Allergy [facility] (1 source) Doxycycline Drug Allergy [facility] (1 source) Megestrol Drug Allergy [facility] Medications Current Medications Medication Drug Class(es) Dates Sig (Normalized) Sig (Original) amoxicillin 875 mg / clavulanate 125 mg oral tablet (2 sources) Penicillin-class Antibacterial Start: 05-07-2022 End: 05-17-2022 take 1 tablet by mouth twice daily amoxicillin-clav ulanic acid (AUGMENTIN) 875-125 mg per tablet Indications: Acute otitis media, right Take 1 tablet by mouth twice daily for 10 days. 20 tablet 0 05/07/2022 05/17/2022 Active Completed/Discontinued Medications Medication Drug Class(es) Dates Sig (Normalized) Sig (Original) [id number] 200 actuat albuterol 0.09 mg/actuat metered dose inhaler (3 sources) beta2-Adrenergic Agonist Start: 10-31-2022 take 2 puff(s) by inhalation every four hours as needed for wheezing albuterol HFA (VENTOLIN HFA) 90 mcg/actuation inhaler Indications: SOB (shortness of breath) Inhale 2 Puffs as instructed every 4 hours as needed for wheezing/shortnes s of breath. 1 Each 3 10/31/2022 Active Problems Active Problems Problem Classification Problem Date Documented Date Episodic/Chronic Abdominal pain (1 source) Epigastric pain; Translations: [Epigastric pain] Episodic Administrative/social admission (2 sources) Patient encounter status; Translations: [Dietary counseling and surveillance] Episodic Deficiency and other anemia (1 source) Iron deficiency anemia; Translations: [Iron deficiency anemia, unspecified] Episodic Deficiency and other anemia (1 source) Anemia, unspecified; Translations: [Anemia, unspecified type] Onset: 01-23-2023 Episodic Diseases of white blood cells (3 sources) Leukocytosis; Translations: [Elevated white blood cell count, unspecified] Chronic Esophageal disorders (20 sources) Gastroesophageal reflux disease; Translations: [Gastro-esophageal reflux disease without esophagitis] Onset: 06-13-2022 Chronic Esophageal disorders (1 source) Pain in esophagus; Translations: [Esophageal pain] Episodic Mood disorders (20 sources) Depressive disorder; Translations: [Depression] Onset: 02-22-2021 02-22-2021 Chronic Other bone disease and musculoskeletal deformities (1 source) Somatic dysfunction of rib; Translations: [Segmental and somatic dysfunction of rib cage] Episodic Other circulatory disease (3 sources) Acrocyanosis; 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 Other circulatory disease (1 source) Other specified peripheral vascular diseases; Translations: [Acrocyanosis (HCC)] Onset: 05-23-2022 Chronic Other connective tissue disease (6 sources) Swelling of finger ; Translations: [Other specified soft tissue disorders] Episodic Other connective tissue disease (3 sources) Pain in axilla; Translations: [Pain in unspecified upper arm] Episodic Other diseases of veins and lymphatics (17 sources) Chronic acquired lymphedema; Translations: [Lymphedema, not elsewhere classified] Onset: 07-21-2022 Chronic Other diseases of veins and lymphatics (1 source) Lymphedema, not elsewhere classified; Translations: [Secondary lymphedema] Onset: 07-21-2022 Chronic Other hematologic conditions (11 sources) ESR raised; Translations: [Elevated erythrocyte sedimentation rate] Episodic Other liver diseases (1 source) Fatty (change of) liver, not elsewhere classified; Translations: [Fatty liver] Onset: 10-31-2022 Chronic Other lower respiratory disease (2 sources) Dyspnea on exertion; Translations: [Other forms of dyspnea] Episodic Other lower respiratory disease (4 sources) Dyspnea; Translations: [Shortness of breath] Episodic Other lower respiratory disease (3 sources) Wheezing; Translations: [Wheezing] Episodic Other non-traumatic joint disorders (1 source) Joint swelling; Translations: [Effusion, unspecified joint] Episodic Other non-traumatic joint disorders (5 sources) Multiple joint pain; Translations: [Pain in unspecified joint] Episodic Other non-traumatic joint disorders (1 source) Bilateral pain of joint of hands; Translations: [Pain in joints of right hand] Episodic Other nutritional; endocrine; and metabolic disorders (1 source) Severe obesity; Translations: [Morbid (severe) obesity due to excess calories] Chronic Other nutritional; endocrine; and metabolic disorders (20 sources) Body mass index 40+ - severely obese; Translations: [Morbid (severe) obesity due to excess calories] Onset: 02-22-2021 02-22-2021 Chronic Other nutritional; endocrine; and metabolic disorders (2 sources) Morbid (severe) obesity due to excess calories; Translations: [Morbid obesity with BMI of 40.0-44.9, adult ([facility])] Onset: 02-22-2021 Chronic Other nutritional; endocrine; and metabolic disorders (1 source) Body mass index (BMI) 40.0-44.9, adult; Translations: [Morbid obesity with BMI of 40.0-44.9, adult ([facility])] Onset: 01-23-2023 Chronic Other nutritional; endocrine; and metabolic disorders (1 source) Weight gain; Translations: [Abnormal weight gain] Episodic Other screening for suspected conditions (not mental disorders or infectious disease) (12 sources) Plain X-ray result abnormal; Translations: [Abnormal findings on diagnostic imaging of other specified body structures] Onset: 05-21-2022 Chronic Other screening for suspected conditions (not mental disorders or infectious disease) (8 sources) Elevated C-reactive protein; Translations: [Elevated C-reactive protein (CRP)] Onset: 05-19-2022 Episodic Other skin disorders (1 source) Bilateral localized swelling of lower legs; Translations: [Localized swelling, mass and lump, lower limb, bilateral] Episodic Other skin disorders (2 sources) Eruption; Translations: [Rash and other nonspecific skin eruption] Episodic Otitis media and related conditions (1 source) Acute right otitis media; Translations: [Otitis media, unspecified, right ear] Episodic Residual codes; unclassified (1 source) Edema; Translations: [Edema, unspecified] Episodic Residual codes; unclassified (1 source) FH: Cardiomyopathy; Translations: [Family history of ischemic heart disease and other diseases of the circulatory system] Episodic Residual codes; unclassified (1 source) Family history of hereditary disease; Translations: [Family history of other specified conditions] Episodic Residual codes; unclassified (4 sources) Edema, generalized; Translations: [Generalized edema] Episodic Thyroid disorders (20 sources) Acquired hypothyroidism; Translations: [Hypothyroidism, unspecified] Onset: 07-12-2021 Chronic Unclassified (1 source) OPENED IN ERROR Unclassified (1 source) Esophageal pain; Translations: [Esophageal pain] Onset: 06-24-2022 Past or Other Problems Problem Classification Problem Date Documented Date Episodic/Chronic Acquired foot deformities (20 sources) Talipes cavus; Translations: [Congenital pes cavus, unspecified foot] Onset: 07-12-2021 Episodic Allergic reactions (1 source) Dermatitis, unspecified; Translations: [Dermatitis] Onset: 07-21-2022 Episodic Cardiac dysrhythmias (20 sources) Tachycardia; Translations: [Tachycardia, unspecified] Onset: 03-28-2022 Episodic Lymphadenitis (10 sources) Axillary lymphadenopathy; Translations: [Localized enlarged lymph nodes] Onset: 09-11-2022 Episodic Malaise and fatigue (6 sources) Malaise and fatigue; Translations: [Other malaise] Onset: 09-11-2022 Episodic Nonspecific chest pain (20 sources) Chest pain; Translations: [Chest pain, unspecified] Onset: 12-19-2021 Episodic Other connective tissue disease (20 sources) Swelling of hand; Translations: [Other specified soft tissue disorders] Onset: 07-21-2022 Episodic Other connective tissue disease (17 sources) Swelling of lower limb; Translations: [Other specified soft tissue disorders] Onset: 07-21-2022 Episodic Other connective tissue disease (4 sources) Other specified soft tissue disorders; Translations: [Leg swelling] Onset: 07-21-2022 Episodic Other connective tissue disease (1 source) Pain in unspecified upper arm; Translations: [Pain in axilla, unspecified laterality] Onset: 10-07-2022 Episodic Other hematologic conditions (1 source) Elevated erythrocyte sedimentation rate; Translations: [Elevated sed rate] Onset: 07-21-2022 Episodic Other inflammatory condition of skin (20 sources) Inflammatory dermatosis; Translations: [Lichen simplex chronicus] Onset: 11-21-2018 11-21-2018 Episodic Other inflammatory condition of skin (20 sources) Prurigo nodularis; Translations: [Prurigo nodularis] Onset: 11-21-2018 11-21-2018 Episodic Other inflammatory condition of skin (1 source) Lichen simplex chronicus; Translations: [Neurodermatitis] Onset: 11-22-2018 Episodic Other inflammatory condition of skin (1 source) Prurigo nodularis; Translations: [Prurigo nodularis] Onset: 11-22-2018 Episodic Other lower respiratory disease (3 sources) Other nonspecific abnormal finding of lung field; Translations: [Other nonspecific abnormal finding of lung field] Onset: 06-09-2022 Episodic Other lower respiratory disease (1 source) Wheezing; Translations: [Wheezing] Onset: 06-16-2022 Episodic Other lower respiratory disease (2 sources) Shortness of breath; Translations: [Shortness of breath] Onset: 05-05-2022 Episodic Other lower respiratory disease (1 source) Other forms of dyspnea; Translations: [SAHU (dyspnea on exertion)] Onset: 05-19-2022 Episodic Other non-traumatic joint disorders (1 source) Pain in unspecified joint; Translations: [Pain in joint, multiple sites] Onset: 09-11-2022 Episodic Other non-traumatic joint disorders (1 source) Pain in joints of right hand; Translations: [Arthralgia of both hands] Onset: 07-21-2022 Episodic Other non-traumatic joint disorders (1 source) Pain in joints of left hand; Translations: [Arthralgia of both hands] Onset: 07-21-2022 Episodic Other non-traumatic joint disorders (1 source) Effusion, unspecified joint; Translations: [Joint swelling] Onset: 05-05-2022 Episodic Other nutritional; endocrine; and metabolic disorders (1 source) Abnormal weight gain; Translations: [Weight gain] Onset: 09-11-2022 Episodic Other upper respiratory infections (6 sources) Sore throat symptom; Translations: [Acute pharyngitis, unspecified] Onset: 07-21-2022 Episodic Residual codes; unclassified (1 source) Generalized edema; Translations: [Anasarca] Onset: 05-23-2022 Episodic Residual codes; unclassified (2 sources) Family history of ischemic heart disease and other diseases of the circulatory system; Translations: [Family history of hypertrophic cardiomyopathy] Onset: 05-13-2022 Episodic Residual codes; unclassified (1 source) Family history of other specified conditions; Translations: [Family history of genetic disorder] Onset: 05-23-2022 Episodic Residual codes; unclassified (1 source) Edema, unspecified; Translations: [Edema, unspecified type] Onset: 05-05-2022 Episodic Syncope (2 sources) Near syncope; Translations: [Syncope and collapse] Onset: 05-05-2022 Episodic Results Test Name Value Interpretation Reference Range Facil ity Vital Signs Date Time Vital Sign Value Performing Clinician Faci lity 01-12-2023 11:22-0400 Body height 149.9 cm Raeann Interiano MD Work Phone: [facility] 01-12-2023 11:22-0400 Body weight 114.94 kg Raeann Interiano MD Work Phone: [facility] 01-12-2023 11:22-0400 Diastolic blood pressure 77 mm[Hg] Raeann Interiano MD Work Phone: [facility] 01-12-2023 11:22-0400 Heart rate 94 /min Raeann Interiano MD Work Phone: [facility] 01-12-2023 11:22-0400 Respiratory rate 97 /min Raeann Interiano MD Work Phone: [facility] 01-12-2023 11:22-0400 Systolic blood pressure 115 mm[Hg] Raeann Interiano MD Work Phone: [facility] 09-12-2022 13:45-0400 Body height 149.9 cm Cassy Saline PA-C Work Phone: [facility] 09-12-2022 13:45-0400 Body temperature 97.9 [degF] Cassy Maribel PA-C Work Phone: [facility] 09-12-2022 13:45-0400 Body weight 109.32 kg Cassy Maribel PA-C Work Phone: [facility] 09-12-2022 13:45-0400 Diastolic blood pressure 78 mm[Hg] Cassy Maribel PA-C Work Phone: [facility] 09-12-2022 13:45-0400 Heart rate 120 /min Cassy Maribel PA-C Work Phone: [facility] 09-12-2022 13:45-0400 SaO2% (BldA) [Mass fraction] 94 % Cassy Saline PA-C Work Phone: [facility] 09-12-2022 13:45-0400 Systolic blood pressure 130 mm[Hg] Cassy Maribel PA-C Work Phone: [facility] 08-28-2022 11:40-0400 Body height 149.9 cm Jesus Osman RN [facility] 08-28-2022 11:40-0400 Body weight 104.33 kg Jesus Osman RN [facility] 07-21-2022 15:12-0400 Body weight 110.22 kg Rene Doherty MD Work Phone: [facility] 07-21-2022 15:12-0400 Diastolic blood pressure 62 mm[Hg] Rene Doherty MD Work Phone: [facility] 07-21-2022 15:12-0400 Heart rate 93 /min Rene Doherty MD Work Phone: [facility] 07-21-2022 15:12-0400 Respiratory rate 18 /min Rene Doherty MD Work Phone: [facility] 07-21-2022 15:12-0400 SaO2% (BldA) [Mass fraction] 98 % Rene Doherty MD Work Phone: [facility] 07-21-2022 15:12-0400 Systolic blood pressure 110 mm[Hg] Rene Doherty MD Work Phone: [facility] 07-21-2022 13:00-0400 Diastolic blood pressure 70 mm[Hg] Anushka Lemon PT [facility] 07-21-2022 13:00-0400 Systolic blood pressure 105 mm[Hg] Anushka Lemon PT [facility] 06-24-2022 14:19-0400 Body height 149.9 cm Mary Carlisle MD Work Phone: [facility] 06-24-2022 14:19-0400 Body temperature 97.7 [degF] Mary Carlisle MD Work Phone: [facility] 06-24-2022 14:19-0400 Body weight 109.77 kg Mary Carlisle MD Work Phone: [facility] 06-24-2022 14:19-0400 Diastolic blood pressure 70 mm[Hg] Mary Carlisle MD Work Phone: [facility] 06-24-2022 14:19-0400 Heart rate 120 /min Mary Carlisle MD Work Phone: [facility] 06-24-2022 14:19-0400 SaO2% (BldA) [Mass fraction] 96 % Mary Carlisle MD Work Phone: [facility] 06-24-2022 14:19-0400 Systolic blood pressure 118 mm[Hg] Mary Carlisle MD Work Phone: [facility] 06-23-2022 11:20-0400 Body weight 110.22 kg Rene Doherty MD Work Phone: [facility] 06-23-2022 11:20-0400 Diastolic blood pressure 72 mm[Hg] Rene Doherty MD Work Phone: [facility] 06-23-2022 11:20-0400 Heart rate 91 /min Rene Doherty MD Work Phone: [facility] 06-23-2022 11:20-0400 SaO2% (BldA) [Mass fraction] 98 % Rene Doherty MD Work Phone: [facility] 06-23-2022 11:20-0400 Systolic blood pressure 110 mm[Hg] Rene Doherty MD Work Phone: [facility] 06-16-2022 09:54-0400 Body height 149.9 cm Karolyn Casanova PA-C Work Phone: [facility] 06-16-2022 09:54-0400 Body weight 108.41 kg Karolyn Casanova PA-C Work Phone: [facility] 06-16-2022 09:54-0400 Diastolic blood pressure 70 mm[Hg] Karolyn Steve PA-C Work Phone: [facility] 06-16-2022 09:54-0400 Heart rate 86 /min Karolyn Steve PA-C Work Phone: [facility] 06-16-2022 09:54-0400 Respiratory rate 16 /min Karolyn Steve PA-C Work Phone: [facility] 06-16-2022 09:54-0400 SaO2% (BldA) [Mass fraction] 97 % Karolyn Steve PA-C Work Phone: [facility] 06-16-2022 09:54-0400 Systolic blood pressure 98 mm[Hg] Karolyn Steve PA-C Work Phone: [facility] 06-16-2022 09:40-0400 Body height 150.1 cm Pulm Wstr Work Phone: [facility] 06-16-2022 09:40-0400 Body weight 108.41 kg Pulm Wstr Work Phone: [facility] 06-16-2022 09:40-0400 Heart rate 87 /min Pulm Wstr Work Phone: [facility] 06-16-2022 09:40-0400 Respiratory rate 16 /min Pulm Wstr Work Phone: [facility] 06-16-2022 09:40-0400 SaO2% (BldA) [Mass fraction] 97 % Pulm Wstr Work Phone: [facility] 06-13-2022 09:45-0400 Diastolic blood pressure 68 mm[Hg] Mary Haagen PROPERTY INVESTOR.WIRE GALVANIZER Work Phone: [facility] 06-13-2022 09:45-0400 Heart rate 86 /min Mary Haagen PROPERTY INVESTOR.WIRE GALVANIZER Work Phone: [facility] 06-13-2022 09:45-0400 Respiratory rate 18 /min Mary Haagen PROPERTY INVESTOR.WIRE GALVANIZER Work Phone: [facility] 06-13-2022 09:45-0400 SaO2% (BldA) [Mass fraction] 97 % Mary Hardin PROPERTY INVESTOR.WIRE GALVANIZER Work Phone: [facility] 06-13-2022 09:45-0400 Systolic blood pressure 108 mm[Hg] Mary Hardin PROPERTY INVESTOR.WIRE GALVANIZER Work Phone: [facility] 06-05-2022 08:08-0500 Body weight 108.86 kg Evelia Rosenthal MD Work Phone: [facility] 06-05-2022 08:08-0500 Diastolic blood pressure 78 mm[Hg] Evelia Rosenthal MD Work Phone: [facility] 06-05-2022 08:08-0500 Heart rate 81 /min Evelia Rosenthal MD Work Phone: [facility] 06-05-2022 08:08-0500 Respiratory rate 15 /min Evelia Rosenthal MD Work Phone: [facility] 06-05-2022 08:08-0500 SaO2% (BldA) [Mass fraction] 99 % Evelia Rosenthal MD Work Phone: [facility] 06-05-2022 08:08-0500 Systolic blood pressure 108 mm[Hg] Evelia Rosenthal MD Work Phone: [facility] 06-02-2022 14:52-0500 Diastolic blood pressure 66 mm[Hg] Umesh Patton DO Work Phone: [facility] 06-02-2022 14:52-0500 Systolic blood pressure 119 mm[Hg] Umesh Patton DO Work Phone: [facility] 06-02-2022 14:49-0500 Body height 149.9 cm Umesh Patton DO Work Phone: [facility] 06-02-2022 14:49-0500 Body temperature 98.4 [degF] Umesh Patton DO Work Phone: [facility] 06-02-2022 14:49-0500 Body weight 107.5 kg Umesh Patton DO Work Phone: [facility] 06-02-2022 14:49-0500 Heart rate 83 /min Umesh Patton DO Work Phone: [facility] 06-02-2022 14:49-0500 SaO2% (BldA) [Mass fraction] 99 % Umesh Patton DO Work Phone: [facility] 05-23-2022 12:56-0500 Body height 149.9 cm Lucy Van MD Work Phone: [facility] 05-23-2022 12:56-0500 Body weight 109.54 kg Lucy Van MD Work Phone: [facility] 05-23-2022 12:56-0500 Diastolic blood pressure 59 mm[Hg] Lucy Van MD Work Phone: [facility] 05-23-2022 12:56-0500 Heart rate 81 /min Lucy Van MD Work Phone: [facility] 05-23-2022 12:56-0500 Systolic blood pressure 119 mm[Hg] Lucy Van MD Work Phone: [facility] 05-21-2022 10:43-0500 Body height 149.9 cm Rene Doherty MD Work Phone: [facility] 05-21-2022 10:43-0500 Body weight 107.96 kg Rene Doherty MD Work Phone: [facility] 05-21-2022 10:43-0500 Diastolic blood pressure 65 mm[Hg] Rene Doherty MD Work Phone: [facility] 05-21-2022 10:43-0500 Heart rate 83 /min Rene Doherty MD Work Phone: [facility] 05-21-2022 10:43-0500 SaO2% (BldA) [Mass fraction] 97 % Rene Doherty MD Work Phone: [facility] 05-21-2022 10:43-0500 Systolic blood pressure 95 mm[Hg] Rene Doherty MD Work Phone: [facility] 05-07-2022 14:19-0500 Body height 149.9 cm Rene Doherty MD Work Phone: [facility] 05-07-2022 14:19-0500 Body temperature 98.71 [degF] Rene Doherty MD Work Phone: [facility] 05-07-2022 14:19-0500 Body weight 107.96 kg Rene Doherty MD Work Phone: [facility] 05-07-2022 14:19-0500 Diastolic blood pressure 78 mm[Hg] Rene Doherty MD Work Phone: [facility] 05-07-2022 14:19-0500 Heart rate 99 /min Rene Doherty MD Work Phone: [facility] 05-07-2022 14:19-0500 SaO2% (BldA) [Mass fraction] 99 % Rene Doherty MD Work Phone: [facility] 05-07-2022 14:19-0500 Systolic blood pressure 110 mm[Hg] Rene Doheryt MD Work Phone: [facility] 05-05-2022 11:32-0500 Body weight 107.96 kg Rene Doherty MD Work Phone: [facility] 05-05-2022 11:32-0500 Diastolic blood pressure 76 mm[Hg] Rene Doherty MD Work Phone: [facility] 05-05-2022 11:32-0500 Heart rate 99 /min Rene Doherty MD Work Phone: [facility] 05-05-2022 11:32-0500 SaO2% (BldA) [Mass fraction] 98 % Rene Doherty MD Work Phone: [facility] 05-05-2022 11:32-0500 Systolic blood pressure 122 mm[Hg] Rene Doherty MD Work Phone: [facility] 03-28-2022 10:08-0500 Body temperature 97.81 [degF] NA Womack PA-C Work Phone: [facility] 03-28-2022 10:08-0500 Body weight 110.22 kg NA Womack PA-C Work Phone: [facility] 03-28-2022 10:08-0500 Diastolic blood pressure 60 mm[Hg] NA Womack PA-C Work Phone: [facility] 03-28-2022 10:08-0500 Heart rate 80 /min NA Womack PA-C Work Phone: [facility] 03-28-2022 10:08-0500 Respiratory rate 20 /min NA Womack PA-C Work Phone: [facility] 03-28-2022 10:08-0500 Systolic blood pressure 120 mm[Hg] NA Womack PA-C Work Phone: [facility] 02-24-2022 10:57-0500 Body height 149.9 cm Anju Fonseca APRN.WIRE GALVANIZER Work Phone: [facility] 02-24-2022 10:57-0500 Body weight 108.86 kg Anju Fonseca APRN.WIRE GALVANIZER Work Phone: [facility] 02-24-2022 10:57-0500 Diastolic blood pressure 66 mm[Hg] Anju Fonseca APRN.WIRE GALVANIZER Work Phone: [facility] 02-24-2022 10:57-0500 Heart rate 92 /min Anju Fonseca APRN.WIRE GALVANIZER Work Phone: [facility] 02-24-2022 10:57-0500 SaO2% (BldA) [Mass fraction] 97 % Anju Fonseca APRN.WIRE GALVANIZER Work Phone: [facility] 02-24-2022 10:57-0500 Systolic blood pressure 104 mm[Hg] Anju Fonseca APRN.WIRE GALVANIZER Work Phone: [facility] 12-17-2021 13:58-0400 Body height 149.9 cm Rene Doherty MD Work Phone: [facility] 12-17-2021 13:58-0400 Body weight 104.78 kg Rene Doherty MD Work Phone: [facility] 12-17-2021 13:58-0400 Diastolic blood pressure 76 mm[Hg] Rene Doherty MD Work Phone: [facility] 12-17-2021 13:58-0400 Heart rate 89 /min Rene Doherty MD Work Phone: [facility] 12-17-2021 13:58-0400 SaO2% (BldA) [Mass fraction] 98 % Rene Doherty MD Work Phone: [facility] 12-17-2021 13:58-0400 Systolic blood pressure 110 mm[Hg] Rene Doherty MD Work Phone: [facility] 12-04-2021 13:51-0400 Body height 149.9 cm Rene Doherty MD Work Phone: [facility] 12-04-2021 13:51-0400 Body weight 105.87 kg Rene Doherty MD Work Phone: [facility] 12-04-2021 13:51-0400 Diastolic blood pressure 72 mm[Hg] Rene Doherty MD Work Phone: [facility] 12-04-2021 13:51-0400 Heart rate 111 /min Rene Doherty MD Work Phone: [facility] 12-04-2021 13:51-0400 SaO2% (BldA) [Mass fraction] 98 % Rene Doherty MD Work Phone: [facility] 12-04-2021 13:51-0400 Systolic blood pressure 110 mm[Hg] Rene Doherty MD Work Phone: [facility] 11-18-2021 14:32-0400 Body height 149.[address] [facility] 11-18-2021 14:32-0400 Body weight 101.[address] [facility] 11-16-2021 12:00-0400 Body temperature 98.49 [degF] Leonarda Praisler-Wood PROPERTY INVESTOR.W[employer] GALVANIZER Work Phone: [facility] 11-16-2021 12:00-0400 Body weight 102.06 kg Leonarda Praisler-Wood PROPERTY INVESTOR.WIRE GALVANIZER Work Phone: [facility] 11-16-2021 12:00-0400 Diastolic blood pressure 80 mm[Hg] Leonarda Praisler-Wood PROPERTY INVESTOR.WIRE GALVANIZER Work Phone: [facility] 11-16-2021 12:00-0400 Heart rate 104 /min Leonarda Praisler-Wood PROPERTY INVESTOR.WIRE GALVANIZER Work Phone: [facility] 11-16-2021 12:00-0400 Respiratory rate 18 /min Leonarda Praisler-Wood PROPERTY INVESTOR.WIRE GALVANIZER Work Phone: [facility] 11-16-2021 12:00-0400 SaO2% (BldA) [Mass fraction] 97 % Leonarda Praisler-Wood PROPERTY INVESTOR.WIRE GALVANIZER Work Phone: [facility] 11-16-2021 12:00-0400 Systolic blood pressure 124 mm[Hg] Leonarda Praisler-Wood PROPERTY INVESTOR.WIRE GALVANIZER Work Phone: [facility] 10-28-2021 14:01-0400 Body weight 101.15 kg Mary Haagen PROPERTY INVESTOR.WIRE GALVANIZER Work Phone: [facility] 10-28-2021 14:01-0400 Diastolic blood pressure 76 mm[Hg] Mary Haagen PROPERTY INVESTOR.WIRE GALVANIZER Work Phone: [facility] 10-28-2021 14:01-0400 Heart rate 90 /min Mary Haagen PROPERTY INVESTOR.WIRE GALVANIZER Work Phone: [facility] 10-28-2021 14:01-0400 Respiratory rate 18 /min Mary Haagen PROPERTY INVESTOR.WIRE GALVANIZER Work Phone: [facility] 10-28-2021 14:01-0400 SaO2% (BldA) [Mass fraction] 98 % Mary Haagen PROPERTY INVESTOR.WIRE GALVANIZER Work Phone: [facility] 10-28-2021 14:01-0400 Systolic blood pressure 108 mm[Hg] Mary Haagen PROPERTY INVESTOR.WIRE GALVANIZER Work Phone: [facility] 10-23-2021 16:17-0400 Body temperature 99 [degF] Xander Pendlebury PROPERTY INVESTOR.WIRE GALVANIZER Work Phone: [facility] 10-23-2021 16:17-0400 Body weight 101.61 kg Xander Pendlittlebury PROPERTY INVESTOR.WIRE GALVANIZER Work Phone: [facility] 10-23-2021 16:17-0400 Diastolic blood pressure 68 mm[Hg] Xander Pendlebury PROPERTY INVESTOR.WIRE GALVANIZER Work Phone: [facility] 10-23-2021 16:17-0400 Heart rate 114 /min Xander Pendlebury PROPERTY INVESTOR.WIRE GALVANIZER Work Phone: [facility] 10-23-2021 16:17-0400 Respiratory rate 18 /min Xander Pendlittlebury PROPERTY INVESTOR.WIRE GALVANIZER Work Phone: [facility] 10-23-2021 16:17-0400 SaO2% (BldA) [Mass fraction] 97 % [facility] PROP[facility] INVESTOR.WIRE GALVANIZER Work Phone: [facility] 10-23-2021 16:17-0400 Systolic blood pressure 110 mm[Hg] Xander Pendlebury PROPERTY INVESTOR.WIRE GALVANIZER Work Phone: [facility] 09-02-2021 14:32-0400 Body height 149.[address] [facility] 09-02-2021 14:32-0400 Body weight 102.[address] [facility] 08-30-2021 09:46-0400 Diastolic blood pressure 74 mm[Hg] Mary Haagen PROPERTY INVESTOR.WIRE GALVANIZER Work Phone: [facility] 08-30-2021 09:46-0400 Heart rate 104 /min Mary Haagen PROPERTY INVESTOR.WIRE GALVANIZER Work Phone: [facility] 08-30-2021 09:46-0400 Respiratory rate 18 /min Mary Haagen PROPERTY INVESTOR.WIRE GALVANIZER Work Phone: [facility] 08-30-2021 09:46-0400 SaO2% (BldA) [Mass fraction] 98 % Mary Hardin PROPERTY INVESTOR.WIRE GALVANIZER Work Phone: [facility] 08-30-2021 09:46-0400 Systolic blood pressure 94 mm[Hg] Mary Hardin PROPERTY INVESTOR.WIRE GALVANIZER Work Phone: [facility] 07-12-2021 14:41-0400 Body weight 102.06 kg Power Escamilla APRN.WIRE GALVANIZER, DNP Work Phone: [facility] 07-12-2021 14:41-0400 Diastolic blood pressure 74 mm[Hg] Power Escamilla PROPERTY INVESTOR.WIRE GALVANIZER, DNP Work Phone: [facility] 07-12-2021 14:41-0400 Heart rate 109 /min Power Escamilla APRN.WIRE GALVANIZER, DNP Work Phone: [facility] 07-12-2021 14:41-0400 Respiratory rate 16 /min Power Escamilla APRN.WIRE GALVANIZER, DNP Work Phone: [facility] 07-12-2021 14:41-0400 SaO2% (BldA) [Mass fraction] 100 % Power Escamilla APRN.WIRE GALVANIZER, DNP Work Phone: [facility] 07-12-2021 14:41-0400 Systolic blood pressure 110 mm[Hg] Power Escamilla APRN.WIRE GALVANIZER, DNP Work Phone: [facility] 06-22-2021 10:18-0400 Body temperature 98.01 [degF] Dank Feng PROPERTY INVESTOR.WIRE GALVANIZER Work Phone: [facility] 06-22-2021 10:18-0400 Body weight 99.97 kg Dank Feng APRN.WIRE GALVANIZER Work Phone: [facility] 06-22-2021 10:18-0400 Diastolic blood pressure 70 mm[Hg] Dank Feng APRN.WIRE GALVANIZER Work Phone: [facility] 06-22-2021 10:18-0400 Heart rate 100 /min Dank Feng PROPERTY INVESTOR.WIRE GALVANIZER Work Phone: [facility] 06-22-2021 10:18-0400 Respiratory rate 22 /min Dank Feng PROPERTY INVESTOR.WIRE GALVANIZER Work Phone: [facility] 06-22-2021 10:18-0400 SaO2% (BldA) [Mass fraction] 98 % Dank Feng PROPERTY INVESTOR.WIRE GALVANIZER Work Phone: [facility] 06-22-2021 10:18-0400 Systolic blood pressure 108 mm[Hg] Dank Feng PROPERTY INVESTOR.WIRE GALVANIZER Work Phone: [facility] 05-06-2021 11:20-0500 Body weight 100.25 kg Esvin Correa MD Work Phone: [facility] 05-06-2021 11:20-0500 Diastolic blood pressure 79 mm[Hg] Esvin Correa MD Work Phone: [facility] 05-06-2021 11:20-0500 Heart rate 109 /min Esvin Correa MD Work Phone: [facility] 05-06-2021 11:20-0500 Systolic blood pressure 117 mm[Hg] Esvin Correa MD Work Phone: [facility] Encounters Encounter Date Encounter Type Care Provider Facility Start: 03-06-2023 End: 03-06-2023 ambulatory RENE DOHERTY Facility:[facility] Start: 01-23-2023 End: 01-24-2023 ambulatory RENE DOHERTY Facility:[facility] Start: 01-12-2023 End: 01-12-2023 ambulatory RAEANN INTERIANO Facility:[facility] Start: 01-12-2023 End: 01-12-2023 Patient encounter procedure Raeann Interiano MD Work Phone: Cardiology Procedures Date Procedure Procedure Detail Performing Clinician Start: 10-07-2022 Digital breast tomosynthesis bilateral Rene Doherty MD Work Phone: Start: 10-07-2022 Us breast uni real t shahida with image limited Rene Doherty MD Work Phone: Start: 07-21-2022 2019 CORONAVIRUS Minha nargis Doherty MD Work Phone: Start: 06-24-2022 Us breast uni real t shahida with image limited Rene Doherty MD Work Phone: Start: 06-17-2022 End: 06-17-2022 US FOOT/ANKLE SYNOVIAL SCREEN LT Lucy Van MD Work Phone: Start: 06-16-2022 Nitric oxide gas determination Evelia Rosenthal MD Work Phone: Start: 06-16-2022 Brncdilat rspse spmt ry pre&post-brncdilat admn Evelia Rosenthal MD Work Phone: Start: 06-09-2022 Ct thorax w/o contra st material Evelia Rosenthal MD Work Phone: Start: 05-23-2022 Radex ankle complete minimum 3 views Lucy Van MD Work Phone: Start: 05-19-2022 Myocardial spect mul tiple studies Anju Fonseca PROPERTY INVESTOR.WIRE GALVANIZER Work Phone: Start: 12-04-2021 D-DIMER Rene Doherty MD Work Phone: Start: 06-22-2021 STREP A MOLECULAR (POC) [facility] Provider Plan of Treatment Date Care Activity Detail Author Start: 10-11-2024 PAP TESTING PAP TESTING [facility] Start: 01-24-2024 Annual PCP Team Driver Guard vladimir Disease Visit Annual PCP Team Chronic Disease Visit [facility] Start: 01-24-2024 Covid-19 Vaccine (#1) Covid-19 Vacci ne (#1) [facility] Immunizations Immunization Date Immunization Notes Care Provider Bruna mccormack 07-26-2007 tetanus toxoid, redu jeff diphtheria toxoid, and acellular pertussis vaccine, adsorbed Dank Jung PROPERTY INVESTOR.WIRE GALVANIZER Work Phone: [facility] 01-01-1999 diphtheria, tetanus toxoids and pertussis vaccine Dank Jung PROPERTY INVESTOR.WIRE GALVANIZER Work Phone: [facility] 08-23-1998 measles, mumps and rubella virus vaccine Dank Jung PROPERTY INVESTOR.WIRE GALVANIZER Work Phone: [facility] 08-23-1998 trivalent poliovirus vaccine, live, oral Dank Jung PROPERTY INVESTOR.WIRE GALVANIZER Work Phone: [facility] 07-24-1998 diphtheria, tetanus toxoids and pertussis vaccine Dank Jung PROPERTY INVESTOR.WIRE GALVANIZER Work Phone: [facility] 07-24-1998 poliovirus vaccine, inactivated Dank Jung PROPERTY INVESTOR.WIRE GALVANIZER Work Phone: [facility] 01-22-1995 diphtheria, tetanus toxoids and pertussis vaccine Dank Jung PROPERTY INVESTOR.WIRE GALVANIZER Work Phone: [facility] 01-22-1995 measles, mumps and rubella virus vaccine Dank Jung PROPERTY INVESTOR.WIRE GALVANIZER Work Phone: [facility] 07-16-1994 hepatitis B vaccine, pediatric or pediatric/adolescent dosage Dank Jung PROPERTY INVESTOR.WIRE GALVANIZER Work Phone: [facility] 05-21-1994 diphtheria, tetanus toxoids and pertussis vaccine Dank Jung PROPERTY INVESTOR.WIRE GALVANIZER Work Phone: [facility] 05-21-1994 haemophilus influenz ae type b vaccine, HbOC conjugate Dank Jung PROPERTY INVESTOR.WIRE GALVANIZER Work Phone: [facility] 05-21-1994 poliovirus vaccine, inactivated Dank Jung PROPERTY INVESTOR.WIRE GALVANIZER Work Phone: [facility] 03-05-1994 diphtheria, tetanus toxoids and pertussis vaccine Dank Jung PROPERTY INVESTOR.WIRE GALVANIZER Work Phone: [facility] 03-05-1994 haemophilus influenz ae type b vaccine, HbOC conjugate Dank Jung PROPERTY INVESTOR.WIRE GALVANIZER Work Phone: [facility] 03-05-1994 hepatitis B vaccine, pediatric or pediatric/adolescent dosage Dank Jung PROPERTY INVESTOR.WIRE GALVANIZER Work Phone: [facility] 03-05-1994 poliovirus vaccine, inactivated Dank Jung PROPERTY INVESTOR.WIRE GALVANIZER Work Phone: [facility] 02-05-1994 haemophilus influenz ae type b vaccine, HbOC conjugate Dank Feng PROPERTY INVESTOR.WIRE GALVANIZER Work Phone: [facility] 02-05-1994 hepatitis B vaccine, pediatric or pediatric/adolescent dosage Dank Jung PROPERTY INVESTOR.WIRE GALVANIZER Work Phone: [facility] 01-01-1994 diphtheria, tetanus toxoids and pertussis vaccine Dank Jung PROPERTY INVESTOR.WIRE GALVANIZER Work Phone: [facility] 01-01-1994 poliovirus vaccine, inactivated Dank Jung PROPERTY INVESTOR.WIRE GALVANIZER Work Phone: [facility] Payers Date Payer Category Payer Unknown STEPHY KAPLAN X [id number] 2022-Present [phone] [address] [address] [place] [address] O [id number] 2022 Medicaid [id number] 2022 Unknown [id number] 2019 Medicaid [id number] 2019 Medicaid [id number] 2019 Medicaid [employer] [facility] [id number] 2019-Present [phone] [address] [place] [address] Medicaid [id number] 1993 Unknown [id number] 1993 Unknown [id number] 1993 Unknown [id number] Social History Date Type Detail [facility] Start: 1995 Sex Assigned At Not on file [facility] Start: 06-12-2021 End: 02-24-2022 Exposure to SARS-CoV-2 (event) Not sure [facility] Start: 11-18-2018 End: 11-16-2021 Tobacco smoking status NHIS Never smoked tobacco [facility] Start: 11-18-2018 End: 11-16-2021 Tobacco use and exposure Smokeless tobacco non-user [facility] Start: 06-22-2021 End: 05-14-2022 Alcohol intake Lifetime non-drinker (finding) [facility] Start: 12-16-2018 History SDOH Alcohol Frequency 1 [facility] Start: 09-10-2021 End: 09-20-2021 Exposure to SARS-CoV-2 (event) Unable to assess [facility] Work Phone: Start: 06-16-2022 End: 06-24-2022 Alcohol intake Ex-drinker (finding) [facility] Start: 12-16-2018 End: 04-12-2022 History of Social function [facility] Start: 12-16-2018 End: 04-12-2022 Alcohol Use Disorder Identification Test - Consumption [AUDIT-C] [facility] How often to you hav e a drink containing alcohol? Never [facility] Average Number of Drinks Not on file [facility] Work Phone: Clinical Notes 05-06-2021 to 03-06-2023 Raeann Interiano MD - 01/12/2023 11:37 AM EDTTelephone Encounter - Karolyn Urias - 12/31/2022 1:53 PM EDTTelephone Encounter - Cha Gomez - 11/10/2022 11:39 AM EDTPatient Instructions Note Date & Type Note Facility 03-06-2023 Note [facility] 01-30-2023 Note [facility] 01-23-2023 Note [facility] 01-12-2023 Note [facility] 01-12-2023 History of Present illness Narrative Images from the original note were not included. Raeann Interiano MD Interventional Cardiology [address] [place], [place] [id number] Chief Complaint No chief complaint on file. HISTORY OF PRESENT ILLNESS: Ms. Mcgee is a 27 year old female seen in my office today for assessment and management patient had prior history of inappropriate sinus tachycardia controlled with metoprolol doing well from the cardiac point of view denies any chest pain or shortness of breath slight swelling in both legs take Lasix every other day Stress test shows normal perfusion with normal left ventricular function echocardiography shows no structural heart Holter monitor shows no arrhythmia other than sinus tachycardia Cardiac Risk Factors family history of CAD PAST MEDICAL HISTORY Diagnosis Date Depression Hypothyroidism, acquired 07/12/2021 Obesity, Class III, BMI 40-49.9 (morbid obesity) (HCC) 02/22/2021 Pes cavus 07/12/2021 PAST SURGICAL HISTORY Procedure Laterality Date CYST/MOLE REMOVAL ovary EGD W/O BRSH SPEC VARICIES INJ Bilateral 09/04/2022 FAMILY HISTORY Problem Relation Age of Onset Arrhythmia Mother a fib Genetic Father + MYBPC3 Genetic Sister + MYBPC3 No Known Problems Sister other (Endometriosis) Sister Arrhythmia Brother bradycardia No Known Problems Brother Cancer Maternal Grandmother NOS Diabetes Maternal Grandfather No Known Problems Paternal Grandmother Genetic Paternal Grandfather Fahr's disease Cardiomyopathy Paternal Aunt HCM, + MYBPC3 Cardiomyopathy Paternal great-grandfather No Known Problems Daughter Social History Tobacco Use Smoking status: Never Smokeless tobacco: Never Vaping Use Vaping Use: Never used Substance Use Topics Alcohol use: Not Currently Drug use: Never ALLERGIES Allergen Reactions Azithromycin GI Upset Megestrol Unknown Medications: Current Outpatient Medications Medication Sig Dispense Refill albuterol HFA (VENTOLIN HFA) 90 mcg/actuation inhaler Inhale 2 Puffs as instructed every 4 hours as needed for wheezing/shortness of breath. 1 Each 3 Cholecalciferol, Vitamin D3, 25 mcg (1,000 unit) cap Take 1 capsule by mouth once daily. 30 capsule 5 cyclobenzaprine (FLEXERIL) 10 mg tablet Take 10 mg by mouth as needed. furosemide (LASIX) 20 mg tablet Take 1 tablet by mouth once daily. 30 tablet 1 levothyroxine (LEVOXYL) 75 mcg tablet Take 1 tablet by mouth once daily. Take on empty stomach. For thyroid. 30 tablet 2 metoprolol tartrate, short acting, (LOPRESSOR) 50 mg tablet Take 1 tablet by mouth two times a day. 60 tablet 5 mometasone (ELOCON) 0.1 % cream Apply 1 application to affected area once daily. 45 g 0 norgestimate 0.25 mg-ethinyl estradiol 35 mcg (SPRINTEC, ORTHO-CYCLEN) 0.25-35 mg-mcg per tablet Take 1 tablet by mouth once daily. sertraline (ZOLOFT) 100 mg tablet Take 1 tablet by mouth once daily. 90 tablet 1 No current facility-administered medications for this visit. Review of Systems Constitutional: Negative for chills, diaphoresis, fever, malaise/fatigue and weight loss. HENT: Negative for congestion, ear discharge, ear pain, hearing loss, nosebleeds, sinus pain, sore throat and tinnitus. Eyes: Negative for blurred vision, double vision, photophobia, pain, discharge and redness. Respiratory: Negative for cough, hemoptysis, sputum production, shortness of breath, wheezing and stridor. Cardiovascular: Negative for chest pain, palpitations, orthopnea, claudication, leg swelling and PND. Gastrointestinal: Negative for abdominal pain, blood in stool, constipation, diarrhea, heartburn, melena, nausea and vomiting. Genitourinary: Negative for dysuria, flank pain, frequency, hematuria and urgency. Musculoskeletal: Negative for back pain, falls, joint pain, myalgias and neck pain. Skin: Negative for itching and rash. Neurological: Negative for dizziness, tingling, tremors, sensory change, speech change, focal weakness, seizures, loss of consciousness, weakness and headaches. Endo/Heme/Allergies: Negative for environmental allergies and polydipsia. Does not bruise/bleed easily. Psychiatric/Behavioral: Negative for depression, hallucinations, memory loss, substance abuse and suicidal ideas. The patient is not nervous/anxious and does not have insomnia. Physical Examination: Vitals:BP 115/77 Pulse 94 Resp 97 Ht 4' 11 (1.50m) Wt 253 lb 6.4 oz (114.9kg) LMP 01/10/2023 BMI 51.15 kg/(m^2). BP w/Orthostatic Vitals Date and Time Orthostatic BP Orthostatic Pulse BP Pulse BP Position BP Site BP Cuff Size 01/12/23 1122 -- -- 115/77 94 -- -- -- Peak Flow Date and Time PF Resp 01/12/23 1122 -- 97 Last 2 Encounter Wt Readings: Date: Wt: 01/12/2023 114.9 kg (253 lb 6.4 oz) 10/31/2022 111.6 kg (246 lb) Physical Exam Constitutional: General: She is not in acute distress. Appearance: She is not diaphoretic. HENT: Head: Normocephalic and atraumatic. Right Ear: External ear normal. Left Ear: External ear normal. Nose: Nose normal. Mouth/Throat: Pharynx: Oropharynx is clear. Eyes: General: Right eye: No discharge. Left eye: No discharge. Conjunctiva/sclera: Conjunctivae normal. Pupils: Pupils are equal, round, and reactive to light. Cardiovascular: Rate and Rhythm: Normal rate and regular rhythm. Heart sounds: Normal heart sounds, S1 normal and S2 normal. No murmur heard. No friction rub. No gallop. No S3 or S4 sounds. Pulmonary: Effort: Pulmonary effort is normal. No respiratory distress. Breath sounds: Normal breath sounds. No wheezing or rales. Chest: Chest wall: No tenderness. Musculoskeletal: General: Normal range of motion. Cervical back: Normal range of motion and neck supple. Skin: General: Skin is warm and dry. Neurological: Mental Status: She is alert and oriented to person, place, and time. Psychiatric: Mood and Affect: Mood normal. Thought Content: Thought content normal. Judgment: Judgment normal. Pertinent Labs: CBC: Hemoglobin (g/dL) Date Value 10/31/2022 13.5 04/30/2021 13.8 04/30/2021 Unable to assay. Specimen too old to perform test. Hematocrit (%) Date Value 10/31/2022 42.4 04/30/2021 43.1 04/30/2021 Unable to assay. Specimen too old to perform test. WBC (k/uL) Date Value 10/31/2022 9.23 04/30/2021 12.45 04/30/2021 Unable to assay. Specimen too old to perform test. Platelet Count (k/uL) Date Value 10/31/2022 359 04/30/2021 369 04/30/2021 Unable to assay. Specimen too old to perform test. BMP: Glucose (mg/dL) Date Value 10/31/2022 78 04/30/2021 77 Potassium (mmol/L) Date Value 10/31/2022 4.9 04/30/2021 4.0 Sodium (mmol/L) Date Value 10/31/2022 134 04/30/2021 139 Chloride (mmol/L) Date Value 10/31/2022 101 04/30/2021 103 CO2 (mmol/L) Date Value 10/31/2022 21 04/30/2021 25 Creatinine (mg/dL) Date Value 10/31/2022 0.77 04/30/2021 0.73 BUN (mg/dL) Date Value 10/31/2022 12 04/30/2021 8 Anion Gap (mmol/L) Date Value 10/31/2022 12 04/30/2021 11 Calcium (mg/dL) Date Value 04/30/2021 9.6 Calcium, Total (mg/dL) Date Value 10/31/2022 9.6 INR: Lipid Profile: No results found for: CHOL , HDL , LDL , TG Hemoglobin A1C: No results found for: HGBA1C TSH: No results found for: TSHREFL Prior Cardiac Testing Echo Stress holter Assessment and Plan: 27 years old female patient with inappropriate sinus tachycardia ASSESSMENT/PLAN: 1. Tachycardia, unspecified - ICD9: 785.0, ICD10: R00.0 Respond well to beta-blockers we will continue 50 mg twice a day Encouraged the patient to enroll in weight reduction program - METOPROLOL TARTRATE 50 MG TABLET Raeann Interiano MD Follow up planning: One year Electronically signed by Raeann Interiano MD on January 12, 2023, 11:37 AM The above note was partially created using a dictation recognition software. A reasonable attempt has been made to correct any errors. documented in this encounter [facility] 12-31-2022 Miscellaneous Notes Pharmacy verified in [facility] Patient has been identified by name and date of : Yes Patient aware RX will be sent to pharmacy. No need to notify patient. Patient phones for refill(s): Requested Prescriptions Pending Prescriptions Disp Refills sertraline (ZOLOFT) 100 mg tablet 90 tablet 1 Sig: Take 1 tablet by mouth once daily. Date of last office visit : 10/31/2022 Date of next office visit : Visit date not found Last 2 Encounter Wt Readings: Date: Wt: 10/31/2022 111.6 kg (246 lb) 10/17/2022 113.8 kg (250 lb 12.8 oz) Not applicable Please advise. Karolyn Cordova Pss documented in this encounter [facility] 11-10-2022 Miscellaneous Notes Faced to [facility] Cha Gomez Ok to do Pt ins is OON. Closest [facility] location is [facility] and pt does not wish to travel. She has requested the order be faxed to [facility]. Please advise. Dayanara Wallace PSS Was this set up? Please place order and route to scheduling once order is placed so we can call to schedule Patient notified. Verbalized understanding. Forwarding to be scheduled. Patient aware. Let her know lymph node is stable on us. They recommend repeat us in six months documented in this encounter [facility] 11-05-2022 Miscellaneous Notes Patient informed and verbalized understanding. Cha Gomez Repeat liver labs were good. TC to pt, notified of results/provider response. Pt states she has not had any more fevers and is feeling a lot better. She states infection is almost gone. Pt states provider had something about checking her liver? I do not see any labs or an ultrasound. Please advise. Vladimir Pope LPN Left message to call and speak with nurse. Labs are overall ok. Check how feeling. Any more fevers etc? The bnp or heart test is actually better. It is at a level that usually is not significant. documented in this encounter [facility] 10-31-2022 Note [facility] 10-17-2022 Note [facility] 10-13-2022 Miscellaneous Notes MY 07/21/22 NOV no upcoming appt Patient has been identified by name and date of : Yes Requested Prescriptions Pending Prescriptions Disp Refills levothyroxine (LEVOXYL) 75 mcg tablet 30 tablet 2 Sig: Take 1 tablet by mouth once daily. Take on empty stomach. For thyroid. RX INSTRUCTIONS: Patient aware RX will be sent to pharmacy. No need to notify patient. Asuncion Mcgrath documented in this encounter [facility] 10-07-2022 Note [facility] 10-07-2022 Note [facility] 10-07-2022 History of Present illness Narrative Radiology Service Progress Note PATIENT NAME: Lakshmi Mcgee DATE OF SERVICE: October 07, 2022 TIME: 2:11 PM PATIENT IDENTITY VERIFICATION COMPLETED USING TWO (2) IDENTIFIERS: Name and Date of confirmed by patient verbally. FALL SCREENING: Has the patient had 2 falls in the last year or 1 fall with injury or currently using an Ambulatory Assistive Device (Walker, Cane, Wheelchair, Crutches, etc.)? No PATIENT GENDER DATA: Female. status: : No status: NO. PATIENT RELEVANT IMPLANT DATA REVIEWED: Not Applicable RADIOLOGY DEPARTMENT: Mammography PERIPHERAL IV DATA: Not applicable SIGNED BY: RT Lashawn(R) October 07, 2022 2:11 PM documented in this encounter [facility] 10-07-2022 History of Present illness Narrative Radiology Service Progress Note PATIENT NAME: Lakshmi Mcgee DATE OF SERVICE: October 07, 2022 TIME: 2:53 PM PATIENT IDENTITY VERIFICATION COMPLETED USING TWO (2) IDENTIFIERS: Name and Date of confirmed by patient verbally. FALL SCREENING: Has the patient had 2 falls in the last year or 1 fall with injury or currently using an Ambulatory Assistive Device (Walker, Cane, Wheelchair, Crutches, etc.)? No PATIENT GENDER DATA: Female. status: : No status: NO. PATIENT RELEVANT IMPLANT DATA REVIEWED: Not Applicable RADIOLOGY DEPARTMENT: Ultrasound PERIPHERAL IV DATA: Not applicable SIGNED BY: Anju Reed RDMS RVT October 07, 2022 2:53 PM documented in this encounter [facility] 09-12-2022 Note [facility] 09-12-2022 Instructions Cassy López PA-C - 09/12/2022 2:07 PM EDT The following instructions are important for you related to your office visit today with the [facility] General Surgeons. INSTRUCTIONS FOR PEPTIC ULCER DISEASE - ESOPHAGITIS I discussed with you the findings of your upper endoscopy. Your upper endoscopy demonstrated esophagitis Esophagitis may be a form of peptic irritation, with acid moving from the stomach to the esophagus (gastroesophageal reflux) Factors that increase acid production include smoking and stress. If you smoke, stopping smoking will often cure these issues without needing other medications. Over the counter medications including antiacids and acid reducing medications including H2 blockers (Zantac and the like) and proton pump inhibitors (prilosec, prevacid and the like) neutralize or prevent acid production. Prescription strength proton pump inhibitors (PPIs) may be necessary if your symptoms persist. Carafate may be added to PPI treatment in refractory cases. Avoiding smoking, alcohol and antiinflammatory medications are important in the successful treatment of reflux esophagitis and peptic diseases. Other factors that contribute to GERD and esophagitis are being overweight, eating large meals before laying down and certain foods. Weight loss will help improve many GERD complaints. Remaining upright after eating large meals and having a small supper will also help symptoms. Avoiding food that contribute to reflux - chocolate, caffeine, cheddar cheese may also help. Follow up upper endoscopy may be recommended to assure healing of the esophagus. New or worsening symptoms such are epigastric pain, burning, difficulty swallowing or food sticking should be relayed to your physician. Feeling full early after eating, or black, tarry, foul smelling stools are also worrisome. If you have any difficulties or concerns, you should contact our office immediately. If you note any additional difficulties, questions, or concerns, you should contact our office immediately @ [phone] and ask to be transferred to the General Surgery department. documented in this encounter [facility] 09-12-2022 History of Present illness Narrative FOLLOW UP VISIT - ENDOSCOPY NAME: Lakshmi Townsend [facility] NO.: [id number] DATE OF SERVICE: 09/12/2022 : 1995 REFERRING PHYSICIAN: Rene Doherty MD Lakshmi is a patient I am following with Dr. Carlisle for esophageal and upper abdominal discomfort. Dr. Carlisle performed upper endoscopy on 09/04/22 at [facility]. The patient was found to have no ulcers, polyps or other lesions. Biopsies were obtained based on patient's symptoms. Pathology demonstrated: FINAL DIAGNOSIS A. Antrum (stomach), biopsy: -- Antral type gastric mucosa with change of reactive gastropathy. -- No morphologic evidence of H. pylori organisms identified on H&E sections. B. Esophagogastric junction, biopsy: -- Squamous mucosa with features suggestive of reflux esophagitis. -- Glandular type mucosa with chronic inflammation, negative for intestinal metaplasia. The patient notes no new complaints since the procedure. VITALS: Blood pressure 130/78, pulse 120, temperature 36.6 C (97.9 F), height 149.9 cm (4' 11 ), weight 109.3 kg (241 lb), last menstrual period 05/30/2022, SpO2 94 %. General: patient is alert, cooperative, pleasant and in no acute distress On examination, the abdomen is benign. Assessment IMPRESSION: GERD and mild gastritis PLAN: The operative findings and pathology report were reviewed with the patient, and the patient has had the opportunity to ask questions and have questions answered. If the patient notes any problems or changes in bowel function, the patient should contact me immediately. Otherwise I recommend repeat upper endoscopy as symptoms dictate Reviewed dietary and lifestyle modifications for GERD and gastritis. Follow up if symptoms worsen or persist Patient verbalized understanding of all above and agreed with the plan Diagnoses: (K21.9) GERD without esophagitis (primary encounter diagnosis) I spent a total of 22 minutes on the date of the service which included preparing to see the patient, [id number] patient care, completing clinical documentation, obtaining and/or reviewing separately obtained history, counseling and educating the patient/family/caregiver, independently interpreting results (not separately reported), and communicating results to the patient/family/caregiver. Cassy López PA-C documented in this encounter [facility] 09-11-2022 Note [facility] 09-11-2022 Miscellaneous Notes Images from the original note were not included. Kristin Thomas MD P Endo F20 Nurse Pool I'm abusing salivary cortisol today! Please send her 2 salivary cortisol test kits with mailing supply to mail back to us. Thank you. Eunice No problem at all! :) I have sent the patient 2 salivary cortisol kits with mail back kit and instructions. Thanks, INGRID Carvalho RN [facility] documented in this encounter [facility] 09-11-2022 History of Present illness Narrative Endocrinology Virtual Visit This is a virtual visit using Mobile365 (fka In[employer]) video visit. It required patient-provider interaction for the medical decision making as documented below. I have communicated my name and active licensure. The patient's identity and physical location were verified at the time of this visit. Either the patient or their legal access services representative has been informed of the risks and benefits of -- and alternatives to -- treatment through a remote evaluation and consents to proceed with the evaluation remotely. Lakhsmi Mcgee is a 26 year old year old female seen for several endocrine concerns, mainly to weight issues and hypothyroid. She was diagnosed with hypothyroidism approximately 3 years ago after delivery her daughter, who is her only child. She was at first placed on TISSUE COORDINATOR thyroid. And later on it was switched to levothyroxine. She has been on levothyroxine 75 mg once daily for the last 3 months. Her most recent thyroid function test on this dose is normal. Component Latest Ref Rng & Units 08/29/2022 TSH 0.270 - 4.200 mIU/L 1.700 Free T4 0.9 - 1.7 ng/dL 1.5 She reports history of paternal aunt who had thyroid removed and now on levothyroxine. However, no known family history of thyroid cancer. She has history of irregular menstrual cycle, spotting 2-3 times a month. She just saw her OB. They will start her on control pills. Her main concern today is weight gain/inability to lose weight. Her weight gain appears to started after the . She was 170s pounds prior to the , and after having the baby she has gained a lot of weight. He is now 243 pounds. She reports significant emotional stress. She does not have much physical activity. She walks 15-20 minutes a day with her daughter. She reports left hip pain. 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 She denies history of prediabetes or diabetes. She denies history of GDM during . She reports family history of type 2 diabetes in her maternal grandfather. She has try diet control in the past. Was able to lose some weight, but then having a hard time maintaining the weight that she have lost. One of her obstacles for weight loss is the financial difficulty, especially with costly healthier food choices. 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 She has not tried weight loss medication. HISTORY REVIEWED (electronic chart updated): PAST MEDICAL HISTORY Diagnosis Date Depression Hypothyroidism, acquired 07/12/2021 Obesity, Class III, BMI 40-49.9 (morbid obesity) ([facility]) 02/22/2021 Pes cavus 07/12/2021 PAST SURGICAL HISTORY Procedure Laterality Date CYST/MOLE REMOVAL ovary FAMILY HISTORY Problem Relation Age of Onset Arrhythmia Mother a fib Genetic Father + MYBPC3 Genetic Sister + MYBPC3 No Known Problems Sister other (Endometriosis) Sister Arrhythmia Brother bradycardia No Known Problems Brother Cancer Maternal Grandmother NOS Diabetes Maternal Grandfather No Known Problems Paternal Grandmother Genetic Paternal Grandfather Fahr's disease Cardiomyopathy Paternal Aunt HCM, + MYBPC3 Cardiomyopathy Paternal great-grandfather No Known Problems Daughter Social History Tobacco Use Smoking status: Never Smokeless tobacco: Never Vaping Use Vaping Use: Never used Substance Use Topics Alcohol use: Not Currently Drug use: Never Current Outpatient Medications Medication Sig mometasone (ELOCON) 0.1 % cream Apply 1 application to affected area once daily. Cholecalciferol, Vitamin D3, 25 mcg (1,000 unit) cap Take 1 capsule by mouth once daily. pantoprazole DR (PROTONIX) 40 mg tablet Take 1 tablet by mouth daily before breakfast. Take on empty stomach, 1/2 hr before meal. sertraline (ZOLOFT) 100 mg tablet Take 1 tablet by mouth once daily. levothyroxine (LEVOXYL) 75 mcg tablet Take 1 tablet by mouth once daily. Take on empty stomach. For thyroid. pantoprazole DR (PROTONIX) 20 mg tablet Take 1 tablet by mouth daily before breakfast. Take on empty stomach, 1/2 hr before meal. furosemide (LASIX) 20 mg tablet Take 1 tablet by mouth once daily. FEROSUL 325 mg (65 mg iron) tablet Take 1 tablet by mouth twice daily with meals. metoprolol tartrate, short acting, (LOPRESSOR) 50 mg tablet Take 1 tablet by mouth twice daily. cyclobenzaprine (FLEXERIL) 10 mg tablet Take 10 mg by mouth as needed. norgestimate 0.25 mg-ethinyl estradiol 35 mcg (SPRINTEC, ORTHO-CYCLEN) 0.25-35 mg-mcg per tablet Take 1 tablet by mouth once daily. Current Facility-Administered Medications Medication Dose Route Frequency perflutren lipid microspheres 1.3 mL in NaCl (PF) 0.9% 10 mL injection (DEFINITY) INTRAVENOUS DIRECTED PRN sodium chloride 0.9 % (flush) 10 mL (BD POSIFLUSH) 10 mL INTRAVENOUS DIRECTED PRN ALLERGIES Allergen Reactions Azithromycin GI Upset Megestrol Unknown REVIEW OF SYSTEM: Review of Systems Constitutional: Positive for fatigue and recent unintentional weight change. Negative for night sweats. HENT: Positive for trouble swallowing and thyroid pain (lower neck). Negative for postnasal drip. Eyes: Negative for visual disturbance. Respiratory: Positive for difficulty breathing. Cardiovascular: Positive for chest pain, leg swelling and claudication. Gastrointestinal: Positive for heartburn, nausea, diarrhea and constipation. Negative for vomiting and abdominal pain. Genitourinary: Positive for urgency, frequent urination and irregular menses. Negative for slower stream, menstruating and amenorrhea. Musculoskeletal: Positive for myalgias and muscle weakness. Negative for bone pain. Skin: Positive for skin color changes. Neurological: Positive for dizziness and headaches. Negative for numbness. Endo/Heme/Allergies: Positive for polydipsia, cold intolerance when others are comfortable, hot flashes, flushing and changes in body hair. Negative for heat intolerance when others are comfortable. PHYSICAL EXAMINATION: VIDEO EXAM: (if completed, performed via video enabled technology) Physical Exam Constitutional: Appearance: She is obese. HENT: Head: Normocephalic. Pulmonary: Effort: Pulmonary effort is normal. Neurological: General: No focal deficit present. Mental Status: She is alert. ASSESSMENT & PLAN: 1. Hypothyroidism Thyroid function is normal on the current dose of levothyroxine. Continue levothyroxine 75 mg once daily. TSH and free T4 can be rechecked again in 1 year, sooner if having hypothyroid symptoms. 2. Weight gain Check 2 nights salivary cortisol to rule out rare possibility of Tori's disease. Referral is made to see weight loss specialist. Kristin Thomas MD Answers submitted by the patient for this visit: Endocrine Review of Systems (Submitted on 09/11/2022) Blood Clots?: No Joint Pain or Stiffness: Yes documented in this encounter [facility] 09-05-2022 Miscellaneous Notes Patient called in with concerns since 11am this morning of a shocking feeling through her body and numbness in her arms and fingers, states is happening every 30 seconds to a minute. Patient is afebrile and is feeling nauseated. Patient had a EGD done yesterday 09/04/[address] Carlisle at [place]. Advised patient to go to ER. Patient voiced understanding and agreement. Kimberly Ríos LPN documented in this encounter [facility] 09-04-2022 Note HNO ID: [id number] Author: Rossy Campbell RN Service: Nursing Author Type: Registered Nurse Type: Nursing Progress Note Filed: 09/04/2022 12:44 PM Note Text: Other: Patient ready to be discharged. [facility] 09-03-2022 Miscellaneous Notes Amara from [place] [employer] asking for thyroid lab results & any breast imaging results. Pt has an appt with them today. Records faxed to [phone]. Shalonda Kilgore LPN documented in this encounter [facility] 08-28-2022 Nurse Note Images from the original note were not included. Pre-Procedure Checklist Lakshmi Mcgee [phone] (home) [phone] (work) 1995 26 year old Body mass index is 46.45 kg/m . 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 Yes Recent EKG/Cardiac Testing: Yes Chest pain in the last 6 months (<6 months cardiac clearance needed): Yes History of: Heart Attack/Stroke/Blood Clot?: No Shortness of Breath: Yes Asthma: No Inhalers: Yes Any Outstanding Consults?: No If yes, list: Additional Notes: Pt states that she has chest pain somethings. The last time she had chest pain was last week. Pt states that she recently needed a blood pressure medication dose changed d/t elevated HR. Pt states that it is now normal. Pt states she has lab work to be drawn on 08/29/2022, SED and TSH. Pt states that she is almost always short of breath . Pt notified that anesthesia will likely want a cardiac clearance. Pt verbalizes understanding. documented in this encounter [facility] 08-22-2022 Note [facility] 07-21-2022 Note [facility] 07-21-2022 Note [facility] 07-21-2022 History of Present illness Narrative Patient presents with: Follow Up HPI: Patient presents today for office visit for 4 week follow up. HYPOTHYROID: Pt stopped pork thyroid and started levothyroxine 75 mcg.Patient is compliant with medications: Yes Patient has changes in energy: Yes, has increased energy Patient has changes in hair or skin: losing hair Patient has temperature intolerance: increased cold intolerance Patient has weight changes: increased weight GERD: Surgery scheduled for 09/04/22 for egd. Ultrasound showed likely reactive nodes that require us to recheck axillary us soon. Has seen pulmonary. Sees rheum again next month as well. Has also seen vascular. She did develop a rash that we saw her for last time. Was on a steroid. Seemed to improve it. Once off, a week or two later it started coming back. Is mostly is on her back. No fingerweb involvement. No one at home with a similar rash. She noticed some improvement in her hand swelling and finger pain while on it. Still no definite reason for her elevated inflammatory markers. She is due for another set of thyroid labs. No fever. No chills. Has had a cough slightly the last week. Did not do a covid test. Mild sore throat. No swollen glands elsewhere No changes in the bowels. No unexplained weight loss. No urinary issues or blood in the urine. MEDICATIONS: Current Outpatient Medications Medication Sig Cholecalciferol, Vitamin D3, 25 mcg (1,000 unit) cap Take 1 capsule by mouth once daily. pantoprazole DR (PROTONIX) 40 mg tablet Take 1 tablet by mouth daily before breakfast. Take on empty stomach, 1/2 hr before meal. sertraline (ZOLOFT) 100 mg tablet Take 1 tablet by mouth once daily. levothyroxine (LEVOXYL) 75 mcg tablet Take 1 tablet by mouth once daily. Take on empty stomach. For thyroid. pantoprazole DR (PROTONIX) 20 mg tablet Take 1 tablet by mouth daily before breakfast. Take on empty stomach, 1/2 hr before meal. furosemide (LASIX) 20 mg tablet Take 1 tablet by mouth once daily. FEROSUL 325 mg (65 mg iron) tablet Take 1 tablet by mouth twice daily with meals. metoprolol tartrate, short acting, (LOPRESSOR) 50 mg tablet Take 1 tablet by mouth twice daily. cyclobenzaprine (FLEXERIL) 10 mg tablet Take 10 mg by mouth as needed. norgestimate 0.25 mg-ethinyl estradiol 35 mcg (SPRINTEC, ORTHO-CYCLEN) 0.25-35 mg-mcg per tablet Take 1 tablet by mouth once daily. Current Facility-Administered Medications Medication Dose Route Frequency perflutren lipid microspheres 1.3 mL in NaCl (PF) 0.9% 10 mL injection (DEFINITY) INTRAVENOUS DIRECTED PRN sodium chloride 0.9 % (flush) 10 mL (BD POSIFLUSH) 10 mL INTRAVENOUS DIRECTED PRN ALLERGIES: ALLERGIES Allergen Reactions Azithromycin GI Upset Megestrol Unknown PAST MEDICAL HISTORY Diagnosis Date Depression Hypothyroidism, acquired 07/12/2021 Obesity, Class III, BMI 40-49.9 (morbid obesity) (HCC) 02/22/2021 Pes cavus 07/12/2021 PAST SURGICAL HISTORY Procedure Laterality Date CYST/MOLE REMOVAL ovary FAMILY HISTORY Problem Relation Age of Onset Arrhythmia Mother a fib Genetic Father + MYBPC3 Genetic Sister + MYBPC3 No Known Problems Sister other (Endometriosis) Sister Arrhythmia Brother bradycardia No Known Problems Brother Cancer Maternal Grandmother NOS Diabetes Maternal Grandfather No Known Problems Paternal Grandmother Genetic Paternal Grandfather Fahr's disease Cardiomyopathy Paternal Aunt HCM, + MYBPC3 Cardiomyopathy Paternal great-grandfather No Known Problems Daughter Social History Tobacco Use Smoking status: Never Smokeless tobacco: Never Vaping Use Vaping Use: Never used Substance Use Topics Alcohol use: Not Currently Drug use: Never Reviewed current medications, allergies, past medical history, surgical history, family history and social history today. REVIEW OF SYSTEMS All other reviewed and negative other than HPI. VITALS: BP 110/62 Pulse 93 Resp 18 Wt 110.2 kg (243 lb) LMP 05/30/2022 (Approximate) SpO2 98% BMI 49.08 kg/m Last 4 Encounter Wt Readings: Date: Wt: 06/24/2022 109.8 kg (242 lb) 06/23/2022 110.2 kg (243 lb) 06/16/2022 108.4 kg (239 lb) 06/16/2022 108.4 kg (239 lb) PHYSICAL EXAMINATION: General appearance: Well appearing, alert, in no acute distress, well-hydrated, well nourished. Skin: no definite signs of scabies etc. Doubt vasculitic. Has several scattered excoriations on chest and trunk as arms. No signs of infection. Head: Normocephalic, no masses, lesions, tenderness or abnormalities Lungs: Lungs clear to auscultation. No wheezing, rhonchi, rales Heart: RRR without murmur, gallop, or rubs. No ectopy Abdomen: Normal abdominal exam, Abdomen soft, non-tender. Bowel sounds normal. No masses, organomegaly Extremities: No deformities, edema, skin discoloration, clubbing or cyanosis. Good capillary refill. ASSESSMENT/PLAN: 1. URI, acute - ICD9: 465.9, ICD10: J06.9 (primary diagnosis) - Discussed viral etiology and rationale for treatment. - Symptomatic treatment with prn analgesia - Supportive care with fluids and rest - 2019 CORONAVIRUS 2. Dermatitis - ICD9: 692.9, ICD10: L30.9 - discussed skin care of rash - follow up if symptoms persist or worsen. Mometasone. - CONSULT TO DERMATOLOGY 3. Lymphadenopathy, axillary - ICD9: 785.6, ICD10: R59.0 - get us in three months. 4. GERD without esophagitis - ICD9: 530.81, ICD10: K21.9 - get egd 5. Arthralgia of both hands - ICD9: 719.44, ICD10: M25.541, M25.542 - follow with rheum. - SED RATE KAUSHALERGREN 6. Elevated sed rate - ICD9: 790.1, ICD10: R70.0 - ? Etiology. Also see derm - SED RATE PAMELA 7. Swelling of finger - ICD9: 729.81, ICD10: M79.89 - SED RATE WESTERGREN Rene Doherty MD documented in this encounter [facility] 07-21-2022 History of Present illness Narrative Episode Visit Count: 1 Therapist That Will Accept/Oversee The Plan Of Care: Anushka Tavarez Start of Care Date: 07/21/22 Onset Date: 06/20/22 ( a little over a month now ) Plan of Care Certification Date: 07/21/22 Next Certification Due Date: 10/20/22 Patient Identified by Name and Date of : Yes REHABILITATION AND SPORTS THERAPY PHYSICAL THERAPY EVALUATION PLAN OF CARE: Assessment: Lakshmi Mcgee presents with diagnosis of swelling of both hands, secondary lymphedema, and leg swelling that interferes with nothing, stair negotiation, cooking, standing, driving (driving if over an hour, can't wear wedding rings) . She presents with impairments in edema management, overall function, and soft tissue condition. Patient did not complete the PROMIS (Patient Reported Outcome Measures Information System). Prognosis for therapy is Excellent due to: current objective clinical presentation, good overall health status, good support system/ coping skills . She will benefit from skilled therapy services to meet the goals established for this plan of care as noted below. Goals for Episode of Care: created on 07/21/22 through 10/20/22 Patient / family knowledgeable re: all pertinent aspects of CDT Patient / family independent with donning / doffing compression garment and proper wearing schedule and care of garment Patient / family independent with home exercise program Patient Goals: Reduce the swelling and pain. Improve painfree function. Planned Interventions, Frequency, and Duration: Current Frequency: 1 visit Duration: 12 weeks Total Number of Visits Planned: 1 Planned Treatment Interventions: Therapeutic exercise (23911), Manual therapy (54014), Self-group home management (07338), Patient/Family/Caregiver Education PLAN FOR NEXT VISIT: Pt will perform HEP (decongestive exercises) and obtain compression garments to improve effective self-management of symptoms. Pt may return for treatment if unable to effectively manage the edema independently. May initiate MLD with short-stretch wraps or reduction kit (or similar velcro wraps) if appropriate at that time. Patient demonstrates good understanding of plan of care and treatment. The above goals and plan of care were discussed and agreed upon by patient/family. SUBJECTIVE: Lakshmi Mcgee is a 26 year old female seen today for Pt reports noticing ankles and feet would sell so much thath they felt tight. Then about a week later noticed her hands were swelling up as well. Usually worse in the evening, especially around the ankles. Can improve if lies in recliner and elevates feet, but then when back on feet about anhour later will notice swelling up again. Pt states she was started on a water pill, but that doesn't seem to take it away. There's a few days where I don't really feel anything. Patient Goals: Reduce the swelling and pain. Improve painfree function. 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.) Home Environment Patient Lives With: Spouse, Other: See Comment (2 year old daughter) Intake Information: Prescription present Previous Treatment: (diuretic and elevating legs/feet and hands intermittently) Pain: Pain Pain Level: 4 Pain Location: Ankle - Right, Ankle - Left, Foot - Right, Foot - Left (distal fourth of lower legs,) Description: Dull Frequency: Intermittent Additional Pain Information : Location 2, Comments Pain Level 2: 7 Pain Location 2: Hand - Right, Hand - Left, Finger - Right, Finger - Left (base of fingers/knuckles) Description 2: Dull Frequency 2: Intermittent Post Treatment Pain Post Treatment Pain Level: 0 PROMIS Scales T-scores: mean of general population = 50. 5 points is clinically meaningfully difference Percentiles provide an indication of how the patient's score ranks in relation to the general population. Higher percentile rankings indicate better function/quality of life. 50th percentile is the average of the general population and indicates half of respondents had a worse score. OBJECTIVE MEASURES WITH LEVEL OF FUNCTION: Lymphedema Presents with: Swelling, Functional Limitations, Pain, Decreased knowledge of lymphedema management Lymphedema is worse: At end of day Lymphedema is better: After elevation, In AM Lymphedema Contributing Factors: High BMI Relevant Medications: Diuretics Relative Contra-indications to Compression: : None Relative Contra-indications to Manual Lymph Drainage: : None Relative Contra-indications to Neck Manual Lymph Drainage: : Hyper/hypothyroidism Relative Contra-indications for Abdominal Sequences: None Previous Lymphedema Treatment: (None) Skin: Skin Comments Skin Comments:: positive Stemmer's sign UEs Stage of Lymphedema: 1 Upper Extremity Circumferential Measurements R Thumb (proximal phalanx) (cm): 6.5 cm R Index Finger (proximal phalanx) (cm): 6.5 cm R Middle Finger (proximal phalanx) (cm): 6.5 cm R Ring Finger (proximal phalanx) (cm): 6 cm R Small Finger (proximal phalanx) (cm): 5.5 cm R DPC (cm): 20 cm R Distal Wrist Crease (DWC) (cm): 18.5 cm R 4 cm above wrist (cm): 22.5 cm R 8 cm above wrist (cm): 25 cm R 12 cm above wrist (cm): 29 cm R 16 cm above wrist (cm): 29.5 cm R 20 cm above wrist (cm): 28.5 cm (elbow) R 24 cm above wrist (cm): 34.5 cm R 28 cm above wrist (cm): 38 cm R 32 cm above wrist (cm): 38 cm R 36 cm above wrist (cm): 38.5 cm R 40 cm above wrist (cm): 37 cm L Thumb (proximal phalanx) (cm): 7 cm L Index Finger (proximal phalanx) (cm): 6.5 cm L Middle Finger (proximal phalanx) (cm): 6.5 cm L Ring Finger (proximal phalanx) (cm): 6 cm L Small Finger (proximal phalanx) (cm): 5.5 cm L DPC (cm): 19.5 cm L Distal Wrist Crease (DWC) (cm): 16 cm L 4 cm above wrist (cm): 20 cm L 8 cm above wrist (cm): 24.5 cm L 12 cm above wrist (cm): 29 cm L 16 cm above wrist (cm): 30.5 cm L 20 cm above wrist (cm): 28 cm (elbow) L 24 cm above wrist (cm): 35.5 cm L 28 cm above wrist (cm): 39 cm L 32 cm above wrist (cm): 39.5 cm L 36 cm above wrist (cm): 39.5 cm L 40 cm above wrist (cm): 39 cm Affected Arm : Bilateral, Left Arm Larger Calculate Volume : Yes R Upper Extremity Volume: 3202.49 L Upper Extremity Volume: 3287.71 Difference in Volume: 85.22 Difference in % : 2.66 Lower Extremity Circumferential Measurements R 1st toe (proximal phalanx): 8.5 R Metatarsal Phalangeal (MTP): 22.5 R Arch: 21.5 R 5 cm from floor: 26 cm R 10 cm from floor: 27.5 cm R 15 cm from floor: 33 cm R 20 cm from floor: 40 cm R 25 cm from floor: 46.5 cm R 30 cm from floor: 51.5 cm R 35 cm from floor: 52.5 cm R 40 cm from floor: 50.5 cm (knee) R 45 cm from floor: 64 cm L 1st toe (proximal phalanx): 9 L Metatarsal Phalangeal (MTP): 22 L Arch: 21 L 5 cm from floor: 27 cm L 10 cm from floor: 27.5 cm L 15 cm from floor: 34.5 cm L 20 cm from floor: 41.5 cm L 25 cm from floor: 47 cm L 30 cm from floor: 52 cm L 35 cm from floor: 52.5 cm L 40 cm from floor: 55 cm (knee) L 45 cm from floor: 59.5 cm Affected Leg: Bilateral, Left Leg Larger Calculate Volume : Yes R Lower Extremity Volume: 6328 L Lower Extremity Volume: 6556 Difference in Volume: 228 Difference in % : 3.6 Gait Gait Observation: Independent with no assistive device. Education: Education Learning Preferences: Demonstration, Explanation Barriers: None Learning/educational needs: Home exercise program, Plan of Care, Lymphedema Program Education Provided: Yes, see treatment interventions for education provided Education Provided To: Patient Education Mode/Type: Demonstration, Explanation/Discussion, Performance, Literature/Printed Materials Response to Education/Teach Back: States/Identifies, Return Demonstration TREATMENT: PT Treatment Interventions: Therapeutic Exercise, Manual Therapy, Self-Usp Management Evaluation Therapeutic Exercise: 1: *Instruction in UE Decongestive Exercises 2: *Instruction in LE Decongestive Exercises Skilled Intervention: Patient was educated in proper exercise technique and purpose for exercises. Skilled judgment was provided in selection of appropriate interventions. Provided written instruction for home exercise program to facilitate proper performance and compliance. Correct performance of therapeutic exercises was facilitated with verbal and visual cuing. Patient education as noted. Self-Usp Management: 1: Educated pt in compression garments, options, and recommendations for gloves and knee-high stockings to be purchased through outside vendor of choice. 2: Explained CDT treatment and further options if exercise and compression are not adequate in controlling her edema. Skilled Intervention: Skilled judgment in the selection of proper modification for activity of daily living/home management based on clinical presentation, deficits, and needs. Educated the patient regarding recommendations and provided written instruction to facilitate compliance. Reviewed patient specific diagnosis in relation to activities of daily living/home management. Billing * Evaluation Low Complexity: 1 Unit Therapeutic Exercise Treatment Minutes: 15 Self-Care/Home Management Treatment Minutes: 15 Total Treatment Time Minutes (timed/untimed): 50 Anushka Tavarez PT documented in this encounter [facility] 07-08-2022 Note [facility] 07-08-2022 History of Present illness Narrative POPULATION HEALTH NAVIGATION OUTREACH Action/FYI Patient Outreach: Spoke with patient to schedule in RST. Pt scheduled RST Consult. Patient Identified by Name and : YES, via phone Outreach Outcome/Action Spoke to patient / parent / legal guardian: Patient scheduled Did you use a PCP flex slot to schedule this appointment? No Reason for Outreach Care Gap or Scheduling/Wellness visits Payer: Payor: [facility] MEDICAID / Plan: [facility] MEDICAID / Product Type: Medicaid / Care Gap Reviewed:: Specialty Scheduling Reminder: Reminder note to check Health Maintenance for items below Health Maintenance items due: COVID-19 VACCINE(1) Never done DTAP,TDAP,TD(7 - Td or Tdap) due on 07/25/2017 Navigation Signature: Anushka Perez Pss July 08, 2022 12:54 PM documented in this encounter [facility] 06-25-2022 Note [facility] 06-25-2022 History of Present illness Narrative HISTORY AND PHYSICAL Lakshmi Mcgee 1995 REFERRING PHYSICIAN: Rene Doherty MD CHIEF COMPLAINT: Consult (GERD and bilateral axillary lymphadenopathy) HPI: The patient is a 26 year old female referred for endoscopy. Lakshmi notes acid reflux symptoms. She denies dysphagia. She denies weight loss. She notes nausea but denies emesis. She notes substernal pain after swallowing. She states that with eructation, this causes burning pain. She also states that her throat feels swollen . She also points to pain in the LUQ of her abdomen and states that she notes swelling in this area. She was seen in the ED [facility] and prescribed prilosec which she has not started yet. She denies cigarettes use; she denies diabetes. She is noted also to have axillary adenopathy. US (06/24/2022) reveals normal lymph nodes of right axilla, follow up ultrasound of lymph node of left axilla is probably benign but three months follow up recommended. CT scan (06/09/2022) revealed few enlarged bilateral axillary lymph nodes Patient also has significant appearing rash of torso - pruritic/erythematous papular type. She is also noted to have excoriated skin lesions of the right arm from scratching. During this patient encounter, patient was noted to be scratching at all these locations. PAST MEDICAL HISTORY Diagnosis Date Depression Hypothyroidism, acquired 07/12/2021 Obesity, Class III, BMI 40-49.9 (morbid obesity) (HCC) 02/22/2021 Pes cavus 07/12/2021 PAST SURGICAL HISTORY Procedure Laterality Date CYST/MOLE REMOVAL ovary Current Outpatient Medications Medication Sig Cholecalciferol, Vitamin D3, 25 mcg (1,000 unit) cap Take 1 capsule by mouth once daily. methylPREDNISolone (MEDROL, DARYA,) 4 mg Dose-Pack Follow dosing instructions, take with food. pantoprazole DR (PROTONIX) 40 mg tablet Take 1 tablet by mouth daily before breakfast. Take on empty stomach, 1/2 hr before meal. sertraline (ZOLOFT) 100 mg tablet Take 1 tablet by mouth once daily. levothyroxine (LEVOXYL) 75 mcg tablet Take 1 tablet by mouth once daily. Take on empty stomach. For thyroid. pantoprazole DR (PROTONIX) 20 mg tablet Take 1 tablet by mouth daily before breakfast. Take on empty stomach, 1/2 hr before meal. furosemide (LASIX) 20 mg tablet Take 1 tablet by mouth once daily. FEROSUL 325 mg (65 mg iron) tablet Take 1 tablet by mouth twice daily with meals. metoprolol tartrate, short acting, (LOPRESSOR) 50 mg tablet Take 1 tablet by mouth twice daily. cyclobenzaprine (FLEXERIL) 10 mg tablet Take 10 mg by mouth as needed. norgestimate 0.25 mg-ethinyl estradiol 35 mcg (SPRINTEC, ORTHO-CYCLEN) 0.25-35 mg-mcg per tablet Take 1 tablet by mouth once daily. ALLERGIES: Azithromycin and Megestrol PERSONAL HISTORY: Social History Tobacco Use Smoking status: Never Smokeless tobacco: Never Vaping Use Vaping Use: Never used Substance Use Topics Alcohol use: Not Currently Drug use: Never FAMILY HISTORY Problem Relation Age of Onset Arrhythmia Mother a fib Genetic Father + MYBPC3 Genetic Sister + MYBPC3 No Known Problems Sister other (Endometriosis) Sister Arrhythmia Brother bradycardia No Known Problems Brother Cancer Maternal Grandmother NOS Diabetes Maternal Grandfather No Known Problems Paternal Grandmother Genetic Paternal Grandfather Fahr's disease Cardiomyopathy Paternal Aunt HCM, + MYBPC3 Cardiomyopathy Paternal great-grandfather No Known Problems Daughter The review of systems data was entered by the nurse and reviewed by in Nursing Notes: Letty Noriega RN 06/24/2022 2:25 PM Signed REVIEW OF SYSTEMS: General: The patient denies fatigue, NOTES weight loss, NOTES weight gain, denies feeling hot, and denies feelings of cold. Eyes: The patient denies glaucoma, denies eye injury/surgery, wears glasses or contacts. Ear/Nose/Throat: The patient NOTES allergies, denies hayfever, NOTES ear infections, and NOTES bloody noses. Cardiovascular: The patient NOTES chest pain, denies heart disease, denies high blood pressure,denies cardiac stent, denies prior heart attack, NOTES irregular heart beat, denies high cholesterol, denies poor circulation, denies heart failure, other cardiac issues, NOTES claudication, denies cold feet, denies peripheral arterial stent. Respiratory: The patient denies tuberculosis, denies pneumonia, denies frequent cough, denies pulmonary embolism, NOTES shortness of breath, and denies coughing up blood. Gastrointestinal: The patient denies difficulty swallowing, NOTES acid reflux, denies ulcers, denies vomiting, denies jaundice/hepatitis, denies gallbladder problems, denies black or tarry stools, denies hemorrhoids, denies bleeding from rectum, denies diverticulitis, NOTES constipation, NOTES diarrhea, denies loss of stool control, and denies hernias. Kidney/Bladder: The patient denies kidney stones, NOTES urine infections, and denies bloody urine. Skin: The patient denies a history of skin cancer, denies bleeding/changing moles, and NOTES a history of skin rash. Neurologic: The patient denies a history of epilepsy/convulsions, NOTES headaches, denies head/spinal injuries, and denies stroke/TIA. Psychiatric: The patient denies psychiatric medications, NOTES depression, and denies voices, denies substance abuse. Endocrine: The patient NOTES thyroid disorders, denies diabetes, and denies hormonal problems. Hematologic: The patient denies a history of bruising, denies bleeding, and denies anemia, denies blood clots. Infections: The patient denies a history of measles and mumps, denies rheumatic fever, and denies sexually transmitted diseases. Musculoskeletal: The patient denies back pain/injury, NOTES back problems, NOTES sciatica, denies knee/foot trouble, denies arthritis, or denies gout. When was patient's last Mammogram screening? N/A Last Colonoscopy: None Letty Noriega RN PHYSICAL EXAMINATION: General: The patient is 26 year old female, well nourished, well hydrated in no acute distress. The patient is oriented to time, place, and person. VITALS: Blood pressure 118/70, pulse 120, temperature 36.5 C (97.7 F), height 149.9 cm (4' 11 ), weight 109.8 kg (242 lb), last menstrual period 05/30/2022, SpO2 96 %. Body mass index is 48.88 kg/m . Head: Normal cephalic, atraumatic Eyes: pupils are equally round, sclera are clear/anicteric Neck is supple with no tracheal deviation Respiratory: Normal respiratory excursion and pattern. Abdominal exam: soft, obese, and benign Skin: numerous erythematous papular lesions throughout torso, skin excoriations of arm Extremities: no clubbing, cyanosis or edema. Neuro: non focal Psych: normal mood RADIOLOGIC STUDIES: As Noted Assessment IMPRESSION: esophageal pain, bilateral axillary lymph nodes PLAN: I have discussed the above with the patient. I have offered EGD, possible biopsies I have explained the procedure to the patient. I have counseled the patient as to the risks of the procedure, including but not limited to: infection, bleeding, injury to any intrabdominal organs such as liver/spleen, perforation of the GI tract, inability to complete the procedure, complications of anesthesia, etc. - the patient understands. The patient wishes to proceed. With regard to enlarged axillary lymph nodes, the most recent radiological study reveals that these are probably reactive. Given the patient's skin condition, I would agree. I have offered referral to a electric motor tester, patient defers this. I have answered all questions to the patient s satisfaction and the patient has no further questions. Diagnoses: (K21.9) GERD without esophagitis (R59.0) Lymphadenopathy, axillary (M79.629) Pain in axilla, unspecified laterality I have confirmed and edited as necessary, the PFSH and ROS obtained by others. Consultation requested by Dr. Rene Doherty for an opinion regarding patient's esophageal pain. My final recommendations will be communicated back to the requesting physician by way of shared Medical record or letter to requesting physician via US mail. Return to Clinic: The patient will be scheduled for EGD, possible biopsies at [facility]. I spent a total of 31 minutes on the date of the service which included preparing to see the patient with review of any pertinent laboratory studies/radiological imaging/medical records, [id number] patient care, obtaining oral medical history from the patient in this encounter, performing a medically appropriate examination, counseling and educating the patient/family/caregiver, and ordering and/or scheduling of medications/tests/procedures, and completing appropriate medical documentation. Mary Carlisle MD documented in this encounter [facility] 06-25-2022 Miscellaneous Notes Spoke with pt and information listed below given. Pt verbalizes understanding. Claudia Jimenes LPN Left message to return call g. Utltrasounds are ok. Shows the lymph nodes may be viral. Recheck left breast us in three months documented in this encounter [facility] 06-24-2022 Miscellaneous Notes Patient was seen by Dr. Carlisle in general surgery today and was not told to cancel the diagnostic mammogram. Left message for patient to return call. Yudelka Diaz Ma Looks like they did us. Won't need mammogram unless surgery feels it is necessary. Still follow up as I mentioned below Pt notified of results & message from provider. Pt has a FU with pcp 07/21/22 but her mammogram isn't until 07/29/22, do you want to wait until after mgm to see her? Shalonda Kilgore LPN Inflammatory markers continue to be up. Keep follow up with surgery for the lymph node enlargement and breast ultrasounds. Keep follow up with rheum. Follow up with me in a few weeks to put it together and see if we need to do anything more depending on these evaluations. documented in this encounter [facility] 06-24-2022 Nurse Note REVIEW OF SYSTEMS: General: The patient denies fatigue, NOTES weight loss, NOTES weight gain, denies feeling hot, and denies feelings of cold. Eyes: The patient denies glaucoma, denies eye injury/surgery, wears glasses or contacts. Ear/Nose/Throat: The patient NOTES allergies, denies hayfever, NOTES ear infections, and NOTES bloody noses. Cardiovascular: The patient NOTES chest pain, denies heart disease, denies high blood pressure,denies cardiac stent, denies prior heart attack, NOTES irregular heart beat, denies high cholesterol, denies poor circulation, denies heart failure, other cardiac issues, NOTES claudication, denies cold feet, denies peripheral arterial stent. Respiratory: The patient denies tuberculosis, denies pneumonia, denies frequent cough, denies pulmonary embolism, NOTES shortness of breath, and denies coughing up blood. Gastrointestinal: The patient denies difficulty swallowing, NOTES acid reflux, denies ulcers, denies vomiting, denies jaundice/hepatitis, denies gallbladder problems, denies black or tarry stools, denies hemorrhoids, denies bleeding from rectum, denies diverticulitis, NOTES constipation, NOTES diarrhea, denies loss of stool control, and denies hernias. Kidney/Bladder: The patient denies kidney stones, NOTES urine infections, and denies bloody urine. Skin: The patient denies a history of skin cancer, denies bleeding/changing moles, and NOTES a history of skin rash. Neurologic: The patient denies a history of epilepsy/convulsions, NOTES headaches, denies head/spinal injuries, and denies stroke/TIA. Psychiatric: The patient denies psychiatric medications, NOTES depression, and denies voices, denies substance abuse. Endocrine: The patient NOTES thyroid disorders, denies diabetes, and denies hormonal problems. Hematologic: The patient denies a history of bruising, denies bleeding, and denies anemia, denies blood clots. Infections: The patient denies a history of measles and mumps, denies rheumatic fever, and denies sexually transmitted diseases. Musculoskeletal: The patient denies back pain/injury, NOTES back problems, NOTES sciatica, denies knee/foot trouble, denies arthritis, or denies gout. When was patient's last Mammogram screening? N/A Last Colonoscopy: None Letty Noriega RN documented in this encounter [facility] 06-24-2022 Note [facility] 06-24-2022 History of Present illness Narrative Radiology Service Progress Note PATIENT NAME: Lakshmi Mcgee DATE OF SERVICE: June 24, 2022 TIME: 2:15 PM PATIENT IDENTITY VERIFICATION COMPLETED USING TWO (2) IDENTIFIERS: Name and Date of confirmed by patient verbally. FALL SCREENING: Has the patient had 2 falls in the last year or 1 fall with injury or currently using an Ambulatory Assistive Device (Walker, Cane, Wheelchair, Crutches, etc.)? No PATIENT GENDER DATA: Female. status: : No status: NO. PATIENT RELEVANT IMPLANT DATA REVIEWED: Not Applicable RADIOLOGY DEPARTMENT: Ultrasound PERIPHERAL IV DATA: Not applicable SIGNED BY: Anju Reed RDMS RVT June 24, 2022 2:15 PM documented in this encounter [facility] 06-23-2022 Note [facility] 06-23-2022 History of Present illness Narrative Patient presents with: Results: Discuss results of CT HPI: Patient presents today for office visit for follow up. See below ct done below. No pain or fever or chills. No sore throat or cough. Did have recent ear pain. No swollen glands in neck or groin. No breast pain but has noted occasional axillary pain. No lumps or bumps. Since some show fatty hilum they could be benign but given her inflammatory markers we need to be cautious. Does have a generalized itching rash. Started about two weeks. Did start synthroid and lasix and protonix however the rash proceeded the med changes. Mostly on her back. No rash on hands or finger webs. No one else with rash at home. Still with some gerd. Saw rheum Also saw vascular who felt her edema was likely due to obesity. Again, no explanation for elevated inflammatory markers No bowel changes other than some mild constipation. No blood in the stool. No skin lesions. Has had pap smears. See CT Scan: Lower neck, lymph nodes, and mediastinum: The imaged thyroid gland is normal. No supraclavicular or mediastinal lymphadenopathy. There are a few enlarged bilateral axillary lymph nodes with some of them showing fatty flori. A focal lymph node calcification noted in the right paratracheal region. Heart, pericardium, and thoracic vessels: The thoracic aorta and main pulmonary artery are normal in caliber. The cardiac chambers are normal in size. No coronary artery atherosclerotic calcifications are noted, although the study is not optimized for coronary assessment. No pericardial effusion or thickening. Bones and soft tissues: No destructive bone lesion. Chest wall is unremarkable. Upper abdomen: No abnormality in the imaged upper abdomen MEDICATIONS: Current Outpatient Medications Medication Sig pantoprazole DR (PROTONIX) 40 mg tablet Take 1 tablet by mouth daily before breakfast. Take on empty stomach, 1/2 hr before meal. sertraline (ZOLOFT) 100 mg tablet Take 1 tablet by mouth once daily. levothyroxine (LEVOXYL) 75 mcg tablet Take 1 tablet by mouth once daily. Take on empty stomach. For thyroid. furosemide (LASIX) 20 mg tablet Take 1 tablet by mouth once daily. FEROSUL 325 mg (65 mg iron) tablet Take 1 tablet by mouth twice daily with meals. metoprolol tartrate, short acting, (LOPRESSOR) 50 mg tablet Take 1 tablet by mouth twice daily. norgestimate 0.25 mg-ethinyl estradiol 35 mcg (SPRINTEC, ORTHO-CYCLEN) 0.25-35 mg-mcg per tablet Take 1 tablet by mouth once daily. Cholecalciferol, Vitamin D3, 1,000 unit cap Take 2 capsules by mouth once daily. pantoprazole DR (PROTONIX) 20 mg tablet Take 1 tablet by mouth daily before breakfast. Take on empty stomach, 1/2 hr before meal. cyclobenzaprine (FLEXERIL) 10 mg tablet Take 10 mg by mouth as needed. Current Facility-Administered Medications Medication Dose Route Frequency perflutren lipid microspheres 1.3 mL in NaCl (PF) 0.9% 10 mL injection (DEFINITY) INTRAVENOUS DIRECTED PRN sodium chloride 0.9 % (flush) 10 mL (BD POSIFLUSH) 10 mL INTRAVENOUS DIRECTED PRN ALLERGIES: ALLERGIES Allergen Reactions Azithromycin GI Upset Megestrol Unknown PAST MEDICAL HISTORY Diagnosis Date Depression Hypothyroidism, acquired 07/12/2021 Obesity, Class III, BMI 40-49.9 (morbid obesity) (HCC) 02/22/2021 Pes cavus 07/12/2021 PAST SURGICAL HISTORY Procedure Laterality Date CYST/MOLE REMOVAL ovary FAMILY HISTORY Problem Relation Age of Onset Arrhythmia Mother a fib Genetic Father + MYBPC3 Genetic Sister + MYBPC3 No Known Problems Sister other (Endometriosis) Sister Arrhythmia Brother bradycardia No Known Problems Brother Cancer Maternal Grandmother NOS Diabetes Maternal Grandfather No Known Problems Paternal Grandmother Genetic Paternal Grandfather Fahr's disease Cardiomyopathy Paternal Aunt HCM, + MYBPC3 Cardiomyopathy Paternal great-grandfather No Known Problems Daughter Social History Tobacco Use Smoking status: Never Smokeless tobacco: Never Vaping Use Vaping Use: Never used Substance Use Topics Alcohol use: Not Currently Drug use: Never Reviewed current medications, allergies, past medical history, surgical history, family history and social history today. REVIEW OF SYSTEMS All other reviewed and negative other than HPI. HEALTH MAINTENANCE: Reviewed health maintenance issues today and recommended the following in detail. COVID-19 VACCINE(1) Never done DTAP,TDAP,TD(7 - Td or Tdap) due on 07/25/2017 VITALS: BP 110/72 Pulse 91 Wt 110.2 kg (243 lb) LMP 05/30/2022 (Approximate) SpO2 98% BMI 49.08 kg/m Last 4 Encounter Wt Readings: Date: Wt: 06/23/2022 110.2 kg (243 lb) 06/16/2022 108.4 kg (239 lb) 06/16/2022 108.4 kg (239 lb) 06/05/2022 108.9 kg (240 lb) PHYSICAL EXAMINATION: General appearance: Well appearing, alert, in no acute distress, well-hydrated, well nourished. Skin: papules and excoriations on the back. No signs of burrows or central clearing. Head: Normocephalic, no masses, lesions, tenderness or abnormalities Eyes: Anicteric sclera. Pupils are equally round and reactive to light. Extraocular movements are intact. Lungs: cta Heart: RRR without murmur, gallop, or rubs. No ectopy Abdomen: Normal abdominal exam, Abdomen soft, non-tender. Bowel sounds normal. No masses, organomegaly Extremities: No deformities, edema, skin discoloration, clubbing or cyanosis. Good capillary refill. No axillary masses. ASSESSMENT/PLAN: 1. GERD without esophagitis - ICD9: 530.81, ICD10: K21.9 (primary diagnosis) - continue meds. Given persistence of symptoms to surgery. - CONSULT TO GENERAL SURGERY 2. Lymphadenopathy, axillary - ICD9: 785.6, ICD10: R59.0 - follow with surgery - [facility] - US BREAST LTD LEFT - US BREAST LTD RIGHT - CONSULT TO GENERAL SURGERY 3. Elevated sed rate - ICD9: 790.1, ICD10: R70.0 -recheck labs. Work up as above. 4. CRP elevated - ICD9: 790.95, ICD10: R79.82 5. Pain in axilla, unspecified laterality - ICD9: 729.5, ICD10: M79.62 - [facility] - US BREAST LTD LEFT - US BREAST LTD RIGHT - CONSULT TO GENERAL SURGERY 6. Dermatitis - ICD9: 692.9, ICD10: L30.9 - discussed skin care of rash - follow up if symptoms persist or worsen. - Discussed risks and benefits of new medication with the patient. Advised them to call if any side effects or questions. Red flags for re-assessment reviewed with patient in detail. Call if symptoms worsen at all or if not better in one to two weeks Reviewed diagnosis and treatment options in detail. Questions were answered. Patient expressed understanding of treatment plan. - SED RATE WESTERGREN - C-REACTIVE PROTEIN (CRP) - METHYLPREDNISOLONE 4 MG TABLETS IN A DOSE PACK Rene Doherty MD documented in this encounter [facility] 06-17-2022 Miscellaneous Notes Patient returned call and went over notes below from Mary Hardin TISSUE COORDINATOR with understanding. Aware rx to pharmacy. Call placed to patient with no answer. Message left for patient to call back to receive message and ask to speak to a triage nurse. Jennifer Hoffman RN I sent an additional 30-day supply of the 40 mg dose of protonix to the pharmacy. Please stay on this dose for an additional month; then decrease to the 20 mg dose. Mary Hardin APRN.WIRE GALVANIZER TC to pt, she states she still has some burning in her stomach, a little better than what it was, but it's still there. She states she has been taking by levothyroxine and protonix together in the morning. Advised pt it would be better to separate the medication so she will try taking levothyroxine in the morning and protonix at lunch time. She would like to continue with 40mg protonix before decreasing to 20mg. Vladimir Pope LPN Can we please check on patient's stomach symptoms. When she was in, she still had about a week of the 40 mg protonix from the pharmacy. Are her symptoms improving? If not, let us know and we can keep her on this dose a little longer before decreasing to the 20 mg dose. Mary Hardin APRN.ALLISON documented in this encounter [facility] 06-16-2022 Miscellaneous Notes Appt scheduled, pt notified Dr Rosenthal let me know the ct scan showed some swollen glands in your arm pits which is of questionable significance. Please set up follow up with me in next week to go over. 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 Initially evaluated by Dr. Rosenthal on 06/05/2022 secondary to persistent abnormal chest imaging. She was ill in March 2022 with URI. CXR at that time demonstrated peribronchial thickening and small nodules which persisted despite treatment with amoxicillin. No prior history of asthma. Chest CT obtained and unremarkable except for enlarged lymph nodes in axilla. PFTs ordered. Today, patient reports that she was recently seen in the [place] ED on 06/08 for swelling in arms and legs as well as epigastric pain. She was given a GI cocktail with improvement in symptoms and started on PPI. She continues with sharp epigastric pain with deep inspiration and occasionally with exertion. Currently on 40 mg Protonix. Currently denies cough, sputum production or wheezing. Reports she only wheezes when she is sick. No shortness of breath. PAST MEDICAL HISTORY Diagnosis Date Depression Hypothyroidism, acquired 07/12/2021 Obesity, Class III, BMI 40-49.9 (morbid obesity) ([facility]) 02/22/2021 Pes cavus 07/12/2021 Allergies: Azithromycin GI Upset Megestrol Unknown sertraline (ZOLOFT) 100 mg tablet^Take 1 tablet by mouth once daily.^Disp: 90 tablet^Rfl: 1 levothyroxine (LEVOXYL) 75 mcg tablet^Take 1 tablet by mouth once daily. Take on empty stomach. For thyroid.^Disp: 30 tablet^Rfl: [address] (PROTONIX) 20 mg tablet^Take 1 tablet by mouth daily before breakfast. Take on empty stomach, 1/2 hr before meal.^Disp: 30 tablet^Rfl: 2 furosemide (LASIX) 20 mg tablet^Take 1 tablet by mouth once daily.^Disp: 30 tablet^Rfl: 1 FEROSUL 325 mg (65 mg iron) tablet^Take 1 tablet by mouth twice daily with meals.^Disp: 180 tablet^Rfl: 1 metoprolol tartrate, short acting, (LOPRESSOR) 50 mg tablet^Take 1 tablet by mouth twice daily.^Disp: 60 tablet^Rfl: 5 cyclobenzaprine (FLEXERIL) 10 mg tablet^Take 10 mg by mouth as needed.^Disp: ^Rfl: naproxen (NAPROSYN) 500 mg tablet^Take 500 mg by mouth twice daily.^Disp: ^Rfl: norgestimate 0.25 mg-ethinyl estradiol 35 mcg (SPRINTEC, ORTHO-CYCLEN) 0.25-35 mg-mcg per tablet^Take 1 tablet by mouth once daily.^Disp: ^Rfl: Cholecalciferol, Vitamin D3, 1,000 unit cap^Take 2 capsules by mouth once daily.^Disp: ^Rfl: 3 Social History Tobacco Use Smoking status: Never Smokeless tobacco: Never Substance Use Topics Alcohol use: Never Drug use: Never Family History Problem Relation Age of Onset Arrhythmia Mother a fib Genetic Father + MYBPC3 Genetic Sister + MYBPC3 No Known Problems Sister other (Endometriosis) Sister Arrhythmia Brother bradycardia No Known Problems Brother Cancer Maternal Grandmother NOS Diabetes Maternal Grandfather No Known Problems Paternal Grandmother Genetic Paternal Grandfather Fahr's disease Cardiomyopathy Paternal Aunt HCM, + MYBPC3 Cardiomyopathy Paternal great-grandfather No Known Problems Daughter PAST SURGICAL HISTORY Procedure Laterality Date CYST/MOLE REMOVAL ovary I reviewed the past medical history, family history, social history and surgical history with changes noted above and updated in EMR. IMMUNIZATIONS Prevnar - xx Pneumovax 23 - xx Influenza - xx COVID-19 - xx ROS: General: No fevers, chills or night sweats. Appetite good. Eyes, Ears, nose, throat: No post nasal drip, rhinorrhea, purulent nasal discharge, epistaxis. No hoarseness. Vision stable. Cardiac: No angina, orthopnea. Resp: See HPI. GI: See HPI. No dysphagia, diarrhea. Occasional constipation. Musculoskeletal: No pain. Neuro: No headache, focal weakness, tremor. Skin: No rash. Otherwise negative. PHYSICAL EXAMINATION: BP 98/70 (BP Site: Right Arm, BP Position: Sitting, BP Cuff Size: Large Adult) Pulse 86 Resp 16 Ht 149.9 cm (4' 11 ) Wt 108.4 kg (239 lb) LMP 05/30/2022 (Approximate) SpO2 97% BMI 48.27 kg/m Gen: No acute distress. Cooperative with examination. HEENT: Normocephalic. Sclera, conjunctiva clear. Oral hygeine and dentition good. Resp: No stridor, accessory respiratory muscle use, supra-sternal or intercostal retractions. No wheezes, crackles. CV: Regular rythm. Heart tones normal. Radial pulses normal. Abd: Non distended. MSK: No kyphoscoliosis. Ext: Warm and well perfused. No clubbing, cyanosis. Skin: No rash, ecchymoses. Neuro: Mental status normal. Affect normal. No tremor. DATA: PFT, 06/16/2022 PRE-BRONCH POST-BRONCH Pre LLN Pred ULN %Pred Post %Pred %Chg SPIROMETRY FVC (L) 2.37 2.54 3.18 3.84 74 FEV1 (L) 1.91 2.19 2.73 3.25 69 FEV1/FVC 0.81 0.74 0.86 0.95 93 PEF L/s (L/sec) 4.58 4.80 6.26 7.72 73 FEF50 (L/sec) 2.42 2.09 3.69 5.30 65 FIF50 (L/sec) 2.40 FEF50/FIF50 1.01 90-100 FIVC (L) 2.18 [id number] (L/sec) 1.87 2.11 3.25 4.57 57 Time (sec) 5.82 FET PEF (sec) 0.09 CB (L) 0.07 Vol Extrap % (%) 3 Exhaled nitric oxide ([place]), 06/16/2022: 6 (normal < 20). CT chest, 06/09/2022 IMPRESSION: No CT evidence of acute abnormality. A few enlarged bilateral axillary lymph nodes. Please clinically clinically. Comparison: The study is correlated with patient's chest x-ray on 05/21/2022. RESULT: Limitations: None. Lines, tubes, and devices: None. Lung parenchyma and airways: No consolidation. No suspicious pulmonary nodule. The central airways are patent. Pleural space: No pleural effusion. No pleural thickening. Lower neck, lymph nodes, and mediastinum: The imaged thyroid gland is normal. No supraclavicular or mediastinal lymphadenopathy. There are a few enlarged bilateral axillary lymph nodes with some of them showing fatty flori. A focal lymph node calcification noted in the right paratracheal region. Heart, pericardium, and thoracic vessels: The thoracic aorta and main pulmonary artery are normal in caliber. The cardiac chambers are normal in size. No coronary artery atherosclerotic calcifications are noted, although the study is not optimized for coronary assessment. No pericardial effusion or thickening. Bones and soft tissues: No destructive bone lesion. Chest wall is unremarkable. Upper abdomen: No abnormality in the imaged upper abdomen. Echocardiogram, 09/12/2021 CONCLUSIONS: - Technically difficult exam due to body habitus. - Exam indication: Palpitations - The left ventricle is small. Left ventricular systolic function is normal. EF = 59 5% (2D biplane) Left ventricular diastolic function was not evaluated due to E/A fusion. - The right ventricle is normal in size. Right ventricular systolic function is normal. - There are no significant valvular abnormalities. - Patient was tachycardic throughout entire exam. - There are no significant valvular abnormalities. - The patient has not had a prior CC echocardiographic exam for comparison. SSMENT/PLAN: 1. Wheezing - ICD9: 786.07, ICD10: R06.2 (primary diagnosis) Wheezing when ill with URI is consistent with asthma. However, PFT and nitric oxide are normal today. Weight loss advised as she may have excessive dynamic airway collapse. Currently asymptomatic. 2. Abnormal finding on imaging - ICD9: 793.99, ICD10: R93.89 CT chest is unremarkable. Noted enlarged axillary lymph nodes. To follow up with PCP. 3. Epigastric pain - ICD9: 789.06, ICD10: R10.13 Continue PPI. Will defer to PCP for further evaluation and management. Karolyn Casanova PA-C documented in this encounter [facility] 06-16-2022 Procedure note Associated Ord er(s): NITRIC OXIDE, EXHALED RESPIRATORY THERAPY ORAL EXHALED NITRIC OXIDE SERVICE DATE: 06/16/2022 SERVICE TIME: 9:50 AM Oral Exhaled Nitric Oxide measurement: 6.0 (ppb) Normal: Adult 5-20 ppb, pediatric (<12 years) 5-15 ppb High Normal / Increased: Adult 20-35 ppb, pediatric (<12 years) 15-25 ppb Moderately raised exhaled Nitric Oxide may indicate underlying inflammation, but note that: Cold and influenza can raise exhaled Nitric Oxide and some patients have higher baseline exhaled Nitric Oxide levels than others. High: Adult >35 ppb, pediatric (<12 years) >25 ppb Indicative of ongoing eosinophilic inflammation. Symptomatic patient likely to respond to steroids. Possible causes (if already on steroids): Poor compliance, recent allergen exposure, steroid dose inadequate, and steroid resistance. Note that not all patients with high exhaled nitric oxide levels display symptoms. Oral Exhaled Nitric Oxide measurement (Previous Encounters) Test Date Oral Exhaled Nitric Oxide (ppb) 06/16/2022 6.0 NAME: DERIK Barros PATIENT NAME: Lakshmi Mcgee DATE: June 16, 2022 TIME: 9:50 AM documented in this encounter [facility] 06-16-2022 History of Present illness Narrative PULM FUNCTION SMARTBLOCK: Provider: Evelia Rosenthal MD Assisting Tech: DERIK Barros Spirometry: 1 Exhaled Nitric Oxide: 1 documented in this encounter [facility] 06-13-2022 Note [facility] 06-13-2022 Instructions Mary Hardin APRN.ALLISON - 06/13/2022 10:15 AM EDT Stop the current thyroid medication. Start the levothyroxine. Check labs in 6-8 weeks. Continue sertraline. Follow-up with pulmonology, as planned. When finished with the pantoprazole from the ER, start the lower dose that I sent in today. Take daily X 1 month, then every other day for a couple of weeks, then every third day for a couple of weeks, then stop. Let us know if symptoms return. documented in this encounter [facility] 06-13-2022 History of Present illness Narrative This is a 26 year old female who presents today with: Patient presents with: ER F/U: [facility] ER follow up- discuss thyroid medication HISTORY OF PRESENT ILLNESS: Lakshmi Mcgee is a 26 year old female. Patient presents with: ER F/U: [facility] ER follow up- discuss thyroid medication Pt presents today for ER follow-up. She presented to the emergency room on 06/07/2022 with complaints of swelling to the upper and lower extremities and epigastric pain. It was noted in the emergency room regarding her fluctuating TSH levels. Patient was advised to consider changing from [place] [facility] to levothyroxine. Discussion with patient and reports that she has never been on levothyroxine to her knowledge. She has been on the [place] Thyroid for the last several years prior to establishing with this practice. She was given a GI cocktail in the emergency room with effectiveness. She was placed on a PPI. She does admit that she has been having problems with reflux for a long time. She admits to some constipation. No diarrhea. No hematochezia/melena. She has been following with pulmonology, and she does have a follow-up appointment on 06/16/2022. PAST MEDICAL HISTORY: PAST MEDICAL HISTORY Diagnosis Date Depression Hypothyroidism, acquired 07/12/2021 Obesity, Class III, BMI 40-49.9 (morbid obesity) ([facility]) 02/22/2021 Pes cavus 07/12/2021 PAST SURGICAL HISTORY Procedure Laterality Date CYST/MOLE REMOVAL ovary ALLERGIES Azithromycin and Megestrol MEDICATIONS Current Outpatient Medications Medication Sig furosemide (LASIX) 20 mg tablet Take 1 tablet by mouth once daily. FEROSUL 325 mg (65 mg iron) tablet Take 1 tablet by mouth twice daily with meals. metoprolol tartrate, short acting, (LOPRESSOR) 50 mg tablet Take 1 tablet by mouth twice daily. thyroid (TISSUE COORDINATOR THYROID) 15 mg tablet Take 1 tablet by mouth once daily. Take with 30 mg dose for total daily dose of 45 mg. cyclobenzaprine (FLEXERIL) 10 mg tablet Take 10 mg by mouth as needed. TISSUE COORDINATOR THYROID 30 mg tablet Take 30 mg by mouth once daily. norgestimate 0.25 mg-ethinyl estradiol 35 mcg (SPRINTEC, ORTHO-CYCLEN) 0.25-35 mg-mcg per tablet Take 1 tablet by mouth once daily. Cholecalciferol, Vitamin D3, 1,000 unit cap Take 2 capsules by mouth once daily. sertraline (ZOLOFT) 100 mg tablet naproxen (NAPROSYN) 500 mg tablet Take 500 mg by mouth twice daily. Current Facility-Administered Medications Medication Dose Route Frequency perflutren lipid microspheres 1.3 mL in NaCl (PF) 0.9% 10 mL injection (DEFINITY) INTRAVENOUS DIRECTED PRN sodium chloride 0.9 % (flush) 10 mL (BD POSIFLUSH) 10 mL INTRAVENOUS DIRECTED PRN FAMILY HISTORY Problem Relation Age of Onset Arrhythmia Mother a fib Genetic Father + MYBPC3 Genetic Sister + MYBPC3 No Known Problems Sister other (Endometriosis) Sister Arrhythmia Brother bradycardia No Known Problems Brother Cancer Maternal Grandmother NOS Diabetes Maternal Grandfather No Known Problems Paternal Grandmother Genetic Paternal Grandfather Fahr's disease Cardiomyopathy Paternal Aunt HCM, + MYBPC3 Cardiomyopathy Paternal great-grandfather No Known Problems Daughter Social History Tobacco Use Smoking status: Never Smokeless tobacco: Never Substance Use Topics Alcohol use: Never Drug use: Never EXAM: BP 108/68 Pulse 86 Resp 18 LMP 05/30/2022 (Approximate) SpO2 97% PHYSICAL EXAM: General Appearance: Well appearing, alert, in no acute distress, well-hydrated, well nourished.. Skin: Skin color, texture, turgor normal, no suspicious rashes or lesions. Head: Normocephalic, no masses, lesions, tenderness or abnormalities. Eyes: Anicteric sclera. Extraocular movements are intact. . Lungs: Lungs clear to auscultation. No wheezing, rhonchi, rales.. Heart: RRR without murmur, gallop, or rubs. No ectopy. Abdomen: Normal abdominal exam, Abdomen soft, non-tender. Bowel sounds normal. No masses, organomegaly. Neurologic: Gait normal. ASSESSMENT/PLAN: 1. Hypothyroidism, acquired - ICD9: 244.9, ICD10: E03.9 (primary diagnosis) We will go ahead and stop the [place] Thyroid and change to levothyroxine. She is aware to take this medicine daily on an empty stomach. She will repeat labs in 6 to 8 weeks. - LEVOTHYROXINE 75 MCG TABLET - TSH BLD - T4 FREE/FREE THYROX 2. Mild episode of recurrent major depressive disorder (HCC) - ICD9: 296.31, ICD10: F33.0 Refill: - SERTRALINE 100 MG TABLET 3. Gastroesophageal reflux disease, unspecified whether esophagitis present - ICD9: 530.81, ICD10: K21.9 She is currently taking pantoprazole 40 mg daily per the emergency room. She has about a week left of this dose. New prescription sent for pantoprazole 20 mg daily for her to continue after finishing this. She is encouraged to take daily for an additional month. Then wean off. She is advised to notify provider if symptoms do not resolve or recurs after she finishes treatment. Discussed treatment plan and patient voices understanding. Patient's questions answered appropriately. Medications and potential side effects were discussed and patient voices understanding. Return to the office as scheduled or as needed for worsening/no improvement. Mary Hardin APRN.ALLISON This note was partially generated using [employer] voice recognition system. Note was reviewed for accuracy. There may be minor misspellings or grammar miscues with [employer] voice recognition. documented in this encounter [facility] 06-10-2022 Miscellaneous Notes Images from the original note were not included. Spoke with Ms. Lakshmi Mcgee and discussed her negative or normal genetic test results for the familial MYBPC3 variant Based on this result she is not expected to be at increased risk of hypertrophic cardiomyopathy (HCM) and does not have the same risk of HCM as family members with the MYBPC3 variant. Genetic testing for the familial variant is NOT recommended for her daughter (any future children) based on this result. All questions were answered and she was encouraged to contact me in the future with any questions/concerns. Please see the attached letter for a full description of our conversation. Braydon Abernathy MS, [facility] [place] Licensed, Certified Genetic Counselor documented in this encounter [facility] 06-09-2022 Note [facility] 06-09-2022 History of Present illness Narrative Radiology Service Progress Note PATIENT NAME: Lakshmi Mcgee DATE OF SERVICE: June 09, 2022 TIME: 3:45 PM PATIENT IDENTITY VERIFICATION COMPLETED USING TWO (2) IDENTIFIERS: Name and Date of confirmed by patient verbally. FALL SCREENING: Has the patient had 2 falls in the last year or 1 fall with injury or currently using an Ambulatory Assistive Device (Walker, Cane, Wheelchair, Crutches, etc.)? No PATIENT GENDER DATA: Female. status: : No status: NO. PATIENT RELEVANT IMPLANT DATA REVIEWED: Yes RADIOLOGY DEPARTMENT: CT; Exam(s) Completed: Chest PERIPHERAL IV DATA: Not applicable SIGNED BY: RT Yesenia(R) June 09, 2022 3:45 PM documented in this encounter [facility] 06-05-2022 Note [facility] 06-05-2022 History of Present illness Narrative Images from the original note were not included. . Respiratory [place] Note Patient name: Lakshmi Mcgee PCP: Rene Doherty MD Referring Physician: Same Consultation requested by Dr. Doherty for an opinion regarding persistent abnormal chest x-ray. My final recommendations will be communicated back to the requesting physician by way of shared Medical record or letter to requesting physician via US mail. CC: Wheezing HPI: Lakshmi Mcgee 26 year old female never smoker with PMH significant for morbid obesity, depression, CMP (Gene: [id number]: c.3330+2T>G, heterozygous) and hypothyroidism being referred for evaluation of persistent abnormal chest imaging. She states she was ill in March with a upper respiratory infection. Symptoms at that time consisted of rhinorrhea, fever, cough, chest congestion and wheezing. Chest x-ray showed peribronchial thickening and small nodules which persisted despite treatment with amoxicillin. Currently denies any respiratory symptoms. Specifically, no cough, wheezing, chest pain. Some shortness of breath with activity. No prior history of asthma but tends to wheeze when she is ill with upper respiratory infections. DATA: Labs: Component Ref Range & Units 10 d ago (05/23/22) WBC 3.70 - 11.00 k/uL 11.56 High RBC 3.90 - 5.20 m/uL 4.31 Hemoglobin 11.5 - 15.5 g/dL 12.6 Hematocrit 36.0 - 46.0 % 39.8 MCV 80.0 - 100.0 fL 92.3 MCH 26.0 - 34.0 pg 29.2 MCHC 30.5 - 36.0 g/dL 31.7 RDW-CV 11.5 - 15.0 % 13.7 Platelet Count 150 - 400 k/uL 378 MPV 9.0 - 12.7 fL 9.3 Neutrophils % % 62.1 Abs Neut 1.45 - 7.50 k/uL 7.18 Lymphocytes % % 30.2 Abs Lymph 1.00 - 4.00 k/uL 3.49 Monocytes % % 4.9 Abs [place] <0.87 k/uL 0.57 Eosinophils % % 1.3 Abs Eosin <0.46 k/uL 0.15 Basophils % % 0.5 Abs Baso <0.11 k/uL 0.06 Immature Granulocytes % % 1.0 Autoimmune panel negative. TB screen negative Imaging / Diagnostic Studies: DATE OF EXAM: May 21 2022 11:29AM WOX [id number] - XR CHEST 2V FRONTAL/LAT / CLINICAL HISTORY: Abnormal x-ray MQ: [id number] EXAM DATE/TIME: 05/21/2022 11:29 AM COMPARISON: 05/05/2022 RESULT: Lines, tubes, and devices: None. Lungs and pleura: No consolidation. No lung mass. No pleural effusion. No pneumothorax. Mild peribronchial thickening Cardiomediastinal silhouette: Normal cardiomediastinal silhouette. Bones and soft tissues: Unremarkable. IMPRESSION: Interstitial opacities with peribronchial thickening likely related to airways inflammation I personally reviewed images of both chest x-rays dated May 05 and which show peribronchial thickening and nodular infiltrates unchanged CT chest [facility] 12/04/21: Reviewed and shows some scattered GGO PAST MEDICAL HISTORY Diagnosis Date Depression Hypothyroidism, acquired 07/12/2021 Obesity, Class III, BMI 40-49.9 (morbid obesity) ([facility]) 02/22/2021 Pes cavus 07/12/2021 ALLERGIES Allergen Reactions Azithromycin GI Upset Megestrol Unknown furosemide (LASIX) 20 mg tablet^Take 1 tablet by mouth once daily.^Disp: 30 tablet^Rfl: 1 FEROSUL 325 mg (65 mg iron) tablet^Take 1 tablet by mouth twice daily with meals.^Disp: 180 tablet^Rfl: 1 metoprolol tartrate, short acting, (LOPRESSOR) 50 mg tablet^Take 1 tablet by mouth twice daily.^Disp: 60 tablet^Rfl: 5 thyroid (TISSUE COORDINATOR THYROID) 15 mg tablet^Take 1 tablet by mouth once daily. Take with 30 mg dose for total daily dose of 45 mg.^Disp: 30 tablet^Rfl: 5 cyclobenzaprine (FLEXERIL) 10 mg tablet^Take 10 mg by mouth as needed.^Disp: ^Rfl: naproxen (NAPROSYN) 500 mg tablet^Take 500 mg by mouth twice daily.^Disp: ^Rfl: TISSUE COORDINATOR THYROID 30 mg tablet^Take 30 mg by mouth once daily.^Disp: ^Rfl: norgestimate 0.25 mg-ethinyl estradiol 35 mcg (SPRINTEC, ORTHO-CYCLEN) 0.25-35 mg-mcg per tablet^Take 1 tablet by mouth once daily.^Disp: ^Rfl: Cholecalciferol, Vitamin D3, 1,000 unit cap^Take 2 capsules by mouth once daily.^Disp: ^Rfl: 3 sertraline (ZOLOFT) 100 mg tablet^^Disp: ^Rfl: Social History Tobacco Use Smoking status: Never Smokeless tobacco: Never Substance Use Topics Alcohol use: Never Drug use: Never Pets: None No occupational exposure history FAMILY HISTORY Problem Relation Age of Onset Arrhythmia Mother a fib Genetic Father + MYBPC3 Genetic Sister + MYBPC3 No Known Problems Sister other (Endometriosis) Sister Arrhythmia Brother bradycardia No Known Problems Brother Cancer Maternal Grandmother NOS Diabetes Maternal Grandfather No Known Problems Paternal Grandmother Genetic Paternal Grandfather Fahr's disease Cardiomyopathy Paternal Aunt HCM, + MYBPC3 Cardiomyopathy Paternal great-grandfather No Known Problems Daughter PAST SURGICAL HISTORY Procedure Laterality Date CYST/MOLE REMOVAL ovary PMH, Social history, family history and surgical history reviewed and updated in EMR REVIEW OF SYSTEMS: CONSTITUTIONAL: No fevers, chills, nightsweats, unintended weight loss. Weight gain HEENT: Denies current nasal congestion/sinus symptoms, allergy problems. EYES: No diplopia or blurry vision. CARDIOVASCULAR: No chest pain, palpitations, orthopnea, PND. Edema of hands and feet PULM: See HPI GI: No dysphagia/odynophagia, problematic reflux, constipation, diarrhea : No urinary complaints, including dysuria, gross hematuria or pyuria. NEURO: No new balance problems, peripheral weakness/paresthesias or numbness of concern. MUSC-SKEL: No joint pain, swelling, or erythema. PSY: History of depression INTEGUMENTARY: Rash on back and underneath her breast that is pruritic PHYSICAL EXAMINATION: BP 108/78 Pulse 81 Resp 15 Wt 240 lb (108.9kg) SpO2 99% LMP 05/30/2022 General Appearance: Morbidly obese female, NAD Skin: Skin color, texture, turgor normal, no suspicious lesions. Multiple papular erythematous rash on back Head: Normocephalic, no masses, lesions, tenderness or abnormalities. Eyes: Sclera, conjunctiva normal Oropharynx: Normal dentition, no oral lesions or thrush, Mallampati 4 Neck: No JVD, no masses, no thyromegaly Lungs: Not labored, normal to percussion, no wheezes or crackles Heart: Regular rate and rhythm, no murmurs gallops Extremities: No lower extremity edema, some edema of her hands, no clubbing Musculoskeletal: No joint deformities or effusions Neurologic: Alert and oriented, no focal finding Lymph Nodes: No cervical lymphadenopathy and No supraclavicular lymphadenopathy. Assessment/Plan: 1. Abnormal chest imaging, persistent -Persistent abnormal findings despite treatment with antibiotics -Chest CT for further delineation 2. Groundglass opacity on past chest CT -Review of chest CT from [facility] in November showed scattered groundglass opacities -Follow-up CT of the chest 3. Wheezing -Wheezing when ill with upper respiratory infections consistent with asthma -Pulmonary function test and exhaled nitric oxide level -Weight loss advised as she may have EDAC 4. Morbid obesity -Class III obesity, BMI 48 -Weight loss advised Evelia Rosenthal MD Respiratory [place] documented in this encounter [facility] 06-02-2022 Note [facility] 06-02-2022 Instructions Umesh Patton DO - 06/02/2022 3:35 PM EST -- trial of water pill medication called lasix (furosemide) -- skin changes in the feet suggestive for lymphedema _suspect secondary to weight -- no findings of vein disease on skin examination -- echo last year normal for your heart documented in this encounter [facility] 06-02-2022 History of Present illness Narrative Images from the original note were not included. Heart and V[facility] [place] Nahomi [facility] Department of Cardiovascular Medicine SECTION OF VASCULAR MEDICINE OUTPATIENT VISIT DATE June 02, 2022 OUTPATIENT VISIT TYPE CONSULTATION Consult regarding: hand swelling, ankle swelling Consult requested by: Lucy Van My final recommendations will be communicated back to the requesting physician by way of the shared medical record or by letter. Primary care physician: Rene Doherty MD History of present illness: 26 year old woman PMH anxiety/depression, morbid obesity BMI 48 here for evaluation of hand swelling. Chronic intermittent swelling hands and feet. In both hands base of knuckles to the PIP joint she feels it will get swollen with associated pain. Seeing rheum for work-up. No history of arm DVT. No bulging veins in the arm nor chest. Does not appear positional. Does not use hand sleeve compression. For her legs she also gets intermittent swelling worse at end of the day. Improves slightly with leg elevation/rest. Does not wear compression stockings. No prior DVT or superficial thrombophlebitis history. Denies any prior known vein disease. Swells to the distal calf and her feet and ankle. Has noticed increased deepened skin fold crease at base of toes. Some thickening of skin. No skin discoloration. No spider veins. No history of pelvic radiation, lymph node surgeries. Swelling seemed to occur more with weight gain. Allergies: is allergic to azithromycin and megestrol. Medications: FEROSUL 325 mg (65 mg iron) tablet^Take 1 tablet by mouth twice daily with meals.^Disp: 180 tablet^Rfl: 1 metoprolol tartrate, short acting, (LOPRESSOR) 50 mg tablet^Take 1 tablet by mouth twice daily.^Disp: 60 tablet^Rfl: 5 thyroid (TISSUE COORDINATOR THYROID) 15 mg tablet^Take 1 tablet by mouth once daily. Take with 30 mg dose for total daily dose of 45 mg.^Disp: 30 tablet^Rfl: 5 cyclobenzaprine (FLEXERIL) 10 mg tablet^Take 10 mg by mouth as needed.^Disp: ^Rfl: naproxen (NAPROSYN) 500 mg tablet^Take 500 mg by mouth twice daily.^Disp: ^Rfl: TISSUE COORDINATOR THYROID 30 mg tablet^Take 30 mg by mouth once daily.^Disp: ^Rfl: norgestimate 0.25 mg-ethinyl estradiol 35 mcg (SPRINTEC, ORTHO-CYCLEN) 0.25-35 mg-mcg per tablet^Take 1 tablet by mouth once daily.^Disp: ^Rfl: Cholecalciferol, Vitamin D3, 1,000 unit cap^Take 2 capsules by mouth once daily.^Disp: ^Rfl: 3 sertraline (ZOLOFT) 100 mg tablet^^Disp: ^Rfl: Past medical history: has a past medical history of Depression, Hypothyroidism, acquired (07/12/2021), Obesity, Class III, BMI 40-49.9 (morbid obesity) (HCC) (02/22/2021), and Pes cavus (07/12/2021). Past surgical history: has a past surgical history that includes cyst/mole removal. Family history: family history includes Arrhythmia in her brother and mother; Cancer in her maternal grandmother; Cardiomyopathy in her paternal aunt and paternal great-grandfather; Diabetes in her maternal grandfather; Endometriosis in her sister; Genetic in her father, paternal grandfather, and sister; No Known Problems in her brother, daughter, paternal grandmother, and sister. Social history: reports that she has never smoked. She has never used smokeless tobacco. She reports that she does not drink alcohol and does not use drugs. REVIEW OF SYSTEMS: General Fever or chills - No Night sweats - YES Change in weight - YES she has gained 5 lb in last couple weeks Lumps in groin, underarms - No Neurological Headaches - YES almost everday relived with medication Seizures - No Passing out - No Dizziness/light headedness - YES Numbness, tingling, pins or needles - YES hands and fingers Weakness in arms or legs - No Head, eyes, ears, nose and throat Changes in hearing - No Changes in vision - No Nose bleeds - YES in winter and spring sometimes Difficulty or pain with swallowing - No Cardiovascular Chest pain or pressure - No Palpitations - No Irregular heartbeat - No Shortness of breath - No sees cardiology for this testing is being done Respiratory Cough - No Wheezing - YES Shortness of breath at rest - YES Shortness of breath with exertion - YES Coughing up blood - No Sleep apnea - No Gastrointestinal Abdominal pain - No Nausea/vomiting - No Diarrhea/Constipation - YES diarrhea Stomach pain after eating - YES Blood in stool - No Black stool - No Genitourinary Pain with urination - No Blood in urine - No Gynecology - No Abnormal vaginal bleeding - No History of loss - No Extremity Bulging veins - YES in her arms and hands Swelling in arms or legs - YES both arms Redness of extremities - YES arms Pain with walking - YES Color change of hands/feet/digits - YES Musculoskeletal Joint pain - YES hands and ankles Joint swelling - YES Back pain - YES Muscle pain or ache - YES Skin Rash - YES abdomin and back Lesions - No Slow healing sores - No Tight or thickened skin - No Hematology Low blood counts - No Easy bruising - YES Blood transfusions - No Psychology Depressed mood - YES Anxiety or history of panic attacks - YES History of recreational drug use - No Cancer screening (up to date?): Colonoscopy: No Pap smear: YES Mammogram: YES Smoking history: -Current or past smoker? No -If current smoker, are you interested in help with quitting? No Physical exam: BP 119/66 (BP Site: Left Arm, BP Position: Sitting, BP Cuff Size: Large Adult) Pulse 83 Temp 36.9 C (98.4 F) (Oral) Ht 149.9 cm (4' 11 ) Wt 107.5 kg (237 lb) LMP 05/30/2022 (Approximate) SpO2 99% BMI 47.87 kg/m General: Alert and oriented, in no acute distress, pleasant mood. Skin: Healthy, intact, no ulcerations, no rashes. HEENT: Head normocephalic, extraocular muscles intact, sclera anicteric. Cardiovascular: Heart has a regular rate and rhythm without murmur. Respiratory: Lungs clear auscultation bilaterally. Normal effort. Gastrointestinal: Abdomen soft and nontender. Central obesity. Musculoskeletal: No cyanosis or clubbing. Peripheral vascular: Right Pulses: dorsalis pedis=2, posterior tibial = 2 Left Pulses: dorsalis pedis=2, posterior tibial=2 Lower extremities: moderate bilateral lower leg swelling. Dorsal hump on feet. Deepened skin fold crease base of toes. +Stemmer sign. No hemosiderin staining of skin. +retromalleolar fat pad. No visible varicose nor spider veins. No echols phlebectasia. Imaging: TTE 09/17/21 CONCLUSIONS: - Technically difficult exam due to body habitus. - Exam indication: Palpitations - The left ventricle is small. Left ventricular systolic function is normal. EF = 59 5% (2D biplane) Left ventricular diastolic function was not evaluated due to E/A fusion. - The right ventricle is normal in size. Right ventricular systolic function is normal. - There are no significant valvular abnormalities. - Patient was tachycardic throughout entire exam. - There are no significant valvular abnormalities. - The patient has not had a prior CC echocardiographic exam for comparison. Labs: Component Latest Ref Rng & Units 05/23/2022 WBC 3.70 - 11.00 k/uL 11.56 (H) RBC 3.90 - 5.20 m/uL 4.31 Hemoglobin 11.5 - 15.5 g/dL 12.6 Hematocrit 36.0 - 46.0 % 39.8 MCV 80.0 - 100.0 fL 92.3 MCH 26.0 - 34.0 pg 29.2 MCHC 30.5 - 36.0 g/dL 31.7 RDW-CV 11.5 - 15.0 % 13.7 Platelet Count 150 - 400 k/uL 378 MPV 9.0 - 12.7 fL 9.3 Neut% % 62.1 Abs Neut (ANC) 1.45 - 7.50 k/uL 7.18 Lymph% % 30.2 Abs Lymph 1.00 - 4.00 k/uL 3.49 [place]% % 4.9 Abs [place] <0.87 k/uL 0.57 Eosin% % 1.3 Abs Eosin <0.46 k/uL 0.15 Baso% % 0.5 Abs Baso <0.11 k/uL 0.06 Immature Gran % % 1.0 IMMATURE GRANS (ABS) <0.10 k/uL 0.11 (H) NRBC /100 WBC 0.0 Absolute nRBC <0.01 k/uL <0.01 DTYPE Auto Protein, Total 6.3 - 8.0 g/dL 7.7 Albumin 3.9 - 4.9 g/dL 3.9 Calcium 8.5 - 10.2 mg/dL 9.3 Bilirubin, Total 0.2 - 1.3 mg/dL 0.2 Alkaline Phosphatase 34 - 123 U/L 89 AST 13 - 35 U/L 28 ALT 7 - 38 U/L 42 (H) Glucose 74 - 99 mg/dL 68 (L) BUN 7 - 21 mg/dL 11 Creatinine 0.58 - 0.96 mg/dL 0.74 Sodium 136 - 144 mmol/L 141 Potassium 3.7 - 5.1 mmol/L 4.1 Chloride 97 - 105 mmol/L 106 (H) CO2 22 - 30 mmol/L 24 Anion Gap 9 - 18 mmol/L 11 eGFR >=60 mL/min/1.73m 113 WSR 0 - 20 mm/hr 56 (H) CRP <0.9 mg/dL 3.8 (H) Impression: #Arm and leg swelling Has what appears to be multifactorial edema. Normal renal function and TTE. Skin changes in her feet consistent for lymphedema. Likely 2/2 obesity. No skin changes to suggest varicose vein disease. Trial diuretic with furosemide 20mg daily. Referral to lymphedema therapy. Weight loss as able. Umesh Patton DO, [facility] Vascular Medicine June 02, 2022 12:53 PM documented in this encounter [facility] 05-27-2022 Miscellaneous Notes PT scheduled for [facility] US on 06/17/22 at 2:15 pm at [address]. Patient called the [facility] US Department back on 05/27/22 at 2:42 pm. Please give this patient a call back to ensure that they receive an appointment. Called patient on 05/27/22 at 1:40 pm to schedule their [facility] US exam. No answer, left VM, 1st attempt. Visit Type: [facility] SYNx2 Visit Length: 90, 100 OR 120 MINUTES Order Name/Protocol: US HAND/WRIST SYNOVIAL SCREEN RT+LT AND US FOOT/ANKLE SYNOVIAL SCREEN RT+LT Preferred Provider: N/A Comment: N/A Location: ANY FACILITY Slot held: N/A documented in this encounter [facility] 05-23-2022 Note [facility] 05-23-2022 History of Present illness Narrative Radiology Service Progress Note PATIENT NAME: Lakshmi Mcgee DATE OF SERVICE: May 23, 2022 TIME: 2:44 PM PATIENT IDENTITY VERIFICATION COMPLETED USING TWO (2) IDENTIFIERS: Name and Date of confirmed by patient verbally. FALL SCREENING: Has the patient had 2 falls in the last year or 1 fall with injury or currently using an Ambulatory Assistive Device (Walker, Cane, Wheelchair, Crutches, etc.)? No PATIENT GENDER DATA: Female. status: : No status: NO. PATIENT RELEVANT IMPLANT DATA REVIEWED: Not Applicable RADIOLOGY DEPARTMENT: General X-ray: Exam(s) Completed: Lower Extremity X-Ray(s): Ankle, Bilateral and Wt. Bearing and Foot, Bilateral and Wt. Bearing Upper Extremity X-Ray(s): Hand, bilateral PERIPHERAL IV DATA: Not applicable SIGNED BY: RT Solo(R) May 23, 2022 2:44 PM documented in this encounter [facility] 05-23-2022 Note [facility] 05-23-2022 Instructions Lucy Van MD - 05/23/2022 1:43 PM EST Please complete blood work today on the first floor and x-rays on the second floor. I have ordered -ultrasounds of your hands and feet to discern if there is inflammatory signal in hands/feet -recommend seeing my colleagues in vascular medicine for peripheral edema/anasarca Call [phone] to schedule both of these (ultrasound testing and vascular medicine evaluation) Recommend seeing the lung doctors or completing a CT scan of your chest with your primary care doctor due to your abnormal chest xray Take photos if you notice any swelling of joints/knuckles, rashes, raynaud's phenomenon Recommend seeing invoice machine operator/waterproofing machine operator physician (/) if worsening issues with your rapid heart rate (tachycardia) in the future. For peripheral edema would recommend -weight loss -low salt diet -compression stockings -leg elevation If you experience joint pain in hands/ankles/feet would recommend over the counter -tylenol arthritis strength 650mg tablet as needed (do not exceed 2500-3000mg per 24 hours) -as needed use of NSAIDs like aleve/motrin however caution for risks of stomach ulcers, gastritis, kidney injury, heart disease -topicals such as voltaren gel, capsaicin cream, asper cream (topical lidocaine/menthol), paraffin wax bath, salonpas patches, icy hot, aleve x spray, biofreeze, arnica gel documented in this encounter [facility] 05-23-2022 History of Present illness Narrative Images from the original note were not included. Rheumatology History & Physical Patient name: Lakshmi Mcgee Requesting provider: No att. providers found SUBJECTIVE History of Present Illness: Ms. Lakshmi Mcgee is a 26 year old female who has a past medical history of anxiety/depression, Hypothyroidism, obesity, and Pes cavus who presents for rheumatologic evaluation. PSHx: She has a past surgical history that includes cyst/mole removal. Allergies: She is allergic to azithromycin and megestrol. Current Meds: ferosul, metoprolol tartrate (short acting), thyroid, cyclobenzaprine, naproxen, education faculty member thyroid, norgestimate 0.25 mg-ethinyl estradiol 35 mcg, cholecalciferol (vitamin d3), and sertraline Family History: family history includes Arrhythmia in her brother and mother; Cancer in her maternal grandmother; Cardiomyopathy in her paternal aunt and paternal great-grandfather; Diabetes in her maternal grandfather; Endometriosis in her sister; Genetic in her father, paternal grandfather, and sister; No Known Problems in her brother, daughter, paternal grandmother, and sister. Social History: She reports that she has never smoked. She has never used smokeless tobacco. She reports that she does not drink alcohol and does not use drugs. Labs: CBC Latest Ref Rng & Units 05/05/2022 01/08/2022 12/13/2021 12/04/2021 WBC 3.70 - 11.00 k/uL 9.84 9.25 11.88(H) 13.34(H) HEMOGLOBIN 11.5 - 15.5 g/dL 14.2 13.6 14.0 13.1 HEMATOCRIT 36.0 - 46.0 % 44.3 42.6 45.0 42.4 PLATELETS 150 - 400 k/uL 371 364 422(H) 337 ABS NEUT (ANC) 1.45 - 7.50 k/uL 6.34 5.99 8.43(H) 9.85(H) ABS LYMPH 1.00 - 4.00 k/uL 2.64 2.47 2.53 2.54 CMP Latest Ref Rng & Units 05/05/2022 12/04/2021 10/28/2021 07/12/2021 SODIUM 136 - 144 mmol/L 140 138 138 139 POTASSIUM 3.7 - 5.1 mmol/L 4.1 4.3 3.4(L) 4.1 CHLORIDE 97 - 105 mmol/L 104 103 100 100 CO2 22 - 30 mmol/L 26 23 25 24 GLUCOSE 74 - 99 mg/dL 82 70(L) 57(L) 99 BUN 7 - 21 mg/dL 8 9 11 13 CREATININE 0.58 - 0.96 mg/dL 0.73 0.70 0.87 0.77 CALCIUM, TOTAL 8.5 - 10.2 mg/dL 9.4 9.8 9.8 9.7 AST 13 - 35 U/L - 14 - 28 ALT 7 - 38 U/L - 15 - 38 ALKALINE PHOSPHATASE 34 - 123 U/L - 114 - 111 ESR, WSR Latest Ref Rng & Units 05/05/2022 01/08/2022 12/13/2021 12/04/2021 WSR 0 - 20 mm/hr 28(H) 44(H) 30(H) 55(H) CRP Latest Ref Rng & Units 05/05/2022 01/08/2022 12/13/2021 02/22/2021 CRP <0.9 mg/dL 3.0(H) 3.8(H) 4.1(H) 2.0(H) CK Latest Ref Rng & Units 04/30/2021 CK 42 - 196 U/L 233(H) RF and CCP Latest Ref Rng & Units 05/05/2022 12/13/2021 RHEUMATOID FACTOR <16 IU/mL <10 <10 Antibodies Latest Ref Rng & Units 05/05/2022 12/13/2021 03/01/2021 DANIELLE Negative Negative Negative Negative DANIELLE TITER Negative - - Negative DANIELLE PATTERN - - - Not applicable for negative result. Labs: 05/22: (-)RF ESR 28 CRP 3.0 CBC 05/21: CK 233 03/19: (-)DANIELLE RHEUMATOLOGY EVALUATION 05/23/2022 Patient seen and examined - initial rheumatology evaluation. She is from [facility]. Referred to rheumatology for swelling in conjunction with elevated markers of inflammation. Per patient has been noticing she has been having a lot of swelling - per patient this has happening for about 2 months -hands -ankles she herself does not endorse joint pain in these areas Per patient she notes she has been having problems with my heart with tachycardia - has been started on metoprolol. Has seen [facility] in cardiology. Patient recently underwent cardiac stress test - per patient she was told everything is ok CXR by PCP: Interstitial opacities with peribronchial thickening likely related to airways inflammation. 2 months - hand and ankle swelling Notices this daily Feels like swelling is worse in the evenings In the morning patient feels like her hands fall asleep Sees some subjective swelling in MCP joints I know its there but its bearable it doesn't really bother me that much I guess Sees sometimes swelling ankles/feet - after moving or standing / walking AM stiffness about ten minutes No recent rashes FHX - paternal aunt with really bad arthritis One daughter. No complications or DVT/PE Hand can turn purple/bluish ~ acrocyanosis (no triphasic color changes) Doesn't feel like joint pain is bad enough warrtening any OTC medication use - does not use ibuprofen or acetaminophen over the counter Rheumatologic ROS +fatigue +shortness of breath +Tachycardia on Beta alonso +two weeks of dry eyes/dry mouth (+) in bold; all rest are negative/denies history of: Chest pain, shortness of breath, history of pleural effusion or pericarditis, oral/nasal ulcers, photosensitivity, rash, history of DVT/PE/&or miscarriages, renal disease, seizures, dry eyes, dry mouth x 2 weeks, cervical lymphadenopathy or parotid gland swelling, raynaud's phenomenon, acrocyanosis in colder temperatures alopecia, psoriasis, history of iritis/uveitis or scleritis, nail pitting, dactylitis, history of sacroiliitis or inflammatory bowel disease, arm weakness in raising arms above head, leg weakness in standing up from a seated position, skin tightening, dysphagia, changes in vision, scalp tenderness, jaw claudication, stiffness in shoulders/hip girdle, auricular or nasal chondritis OBJECTIVE 05/23/22 1256 BP: 119/59 Pulse: 81 Weight: 109.5 kg (241 lb 8 oz) Height: 149.9 cm (4' 11 ) General: No acute distress. Eye: Pupils are equal, round and reactive to light, Extraocular movements are intact, Normal conjunctiva. HENT: Oral mucosa is moist, no oral ulcerations, no areas of alopecia appreciated Neck: Supple, Non-tender. No lymphadenopathy Respiratory: Lungs are clear to auscultation, Respirations are non-labored, Breath sounds are equal. Cardiovascular: Normal rate, Regular rhythm. Gastrointestinal: soft, non-tender, non-distended. Musculoskeletal: generalized anasarca; doral hand swelling; difficult to discern synovitis in this setting of generalized peripheral edema and body mass index Integumentary: Warm, Dry. midfacial erythema; macular erythema of R forearm 2/2 birthmark Neurologic: Alert, Oriented. Psychiatric: Cooperative. IMPRESSION & RECOMMENDATIONS Ms. Lakshmi Mcgee is a 26 year old female who has a past medical history of anxiety/depression, Hypothyroidism, obesity, and Pes cavus who presents for rheumatologic evaluation. 05/22: (-)RF ESR 28 CRP 3.0 CBC 05/21: CK 233 03/19: (-)DANIELLE Pleasant 26 y/o F with medical history as above referred to rheumatology for swelling in the setting of elevated markers of inflammation. Her swelling seems generalized 2/2 peripheral edema/anasarca rather than true joint synovitis however given that it is difficult to discern synovitis clinically given body habitus/peripheral edema will follow up advanced imaging with ultrasounds to discern if presence of synovitis/tenosynovitis. Clinically patient is not endorsing much small joint arthritis. Given her abnormal CXR will recommend PCP to follow up CT scan of chest/refer to pulmonology for further evaluation. Patient to follow up with cardiology regarding her tachycardia (recently started on metoprolol therapy). Explained to patient that ESR/CRP is difficult to interpret given her advanced BMI >48 (advanced BMI is classically associated with falsely elevated markers of inflammation). Recommendations: -will follow up labs, serologies and imaging studies including ultrasounds -given worsening peripheral edema recommend vascular medicine evaluation -recommend CT scan of chest given abnormal CXR by PCP -instructed patient to take photos if she were to notice any swelling of joints/knuckles, rashes, raynaud's phenomenon -For peripheral edema would recommend -weight loss -low salt diet -compression stockings -leg elevation If patient started to experience joint pain in hands/ankles/feet would recommend over the counter -tylenol arthritis strength 650mg tablet as needed (do not exceed 2500-3000mg per 24 hours) -as needed use of NSAIDs like aleve/motrin however caution for risks of stomach ulcers, gastritis, kidney injury, heart disease -topicals such as voltaren gel, capsaicin cream, asper cream (topical lidocaine/menthol), paraffin wax bath, salonpas patches, icy hot, aleve x spray, biofreeze, arnica gel I spent a total of 65 minutes on the date of the service which included preparing to see the patient, [id number] patient care, completing clinical documentation, obtaining and/or reviewing separately obtained history, performing a medically appropriate examination, counseling and educating the patient/family/caregiver, ordering medications, tests, or procedures, communicating results to the patient/family/caregiver and care coordination (not separately reported). Lucy Van MD Rheumatology Staff documented in this encounter [facility] 05-21-2022 Miscellaneous Notes Patient calls and notified of results and providers instructions. Patient verbalizes understanding. Patient aware order is placed and will come in to have completed in 1 month. Jennifer Hoffman RN Placed call to patient with no answer. No VM to leave message. Try again later. Cha Gomez Chest xray still shows some residual changes. Recheck xray in one month. If changes on xray persist, will need more work up. documented in this encounter [facility] 05-21-2022 Note [facility] 05-21-2022 Note [facility] 05-21-2022 History of Present illness Narrative Patient presents with: Follow Up HPI: Patient presents today for office visit for 2wk follow up. Had Edema to hands and ankles in beginning of April. Admitted to some shortness of breath when her HR would go up. Admits to some chest pain and shortness of breath this morning. HR was 112. Cardiology increased Metoprolol and edema and HR has since gotten better. BP and HR stable today. Saw genetics. Following with cardiology. Cough is improved. No fever or chills. No sore throat. Ear pain is better. Seeing rheum soon. Still with occasional joint pain and swelling See previous chest xray: No acute radiographic abnormality. No evidence of pulmonary edema. Mild scattered reticulonodular opacities in the mid to lower lungs may be post infectious or post inflammatory. Follow-up chest x-ray can be performed to ascertain resolution. MEDICATIONS: Current Outpatient Medications Medication Sig FEROSUL 325 mg (65 mg iron) tablet Take 1 tablet by mouth twice daily with meals. metoprolol tartrate, short acting, (LOPRESSOR) 50 mg tablet Take 1 tablet by mouth twice daily. thyroid (TISSUE COORDINATOR THYROID) 15 mg tablet Take 1 tablet by mouth once daily. Take with 30 mg dose for total daily dose of 45 mg. cyclobenzaprine (FLEXERIL) 10 mg tablet Take 10 mg by mouth as needed. naproxen (NAPROSYN) 500 mg tablet Take 500 mg by mouth twice daily. TISSUE COORDINATOR THYROID 30 mg tablet Take 30 mg by mouth once daily. norgestimate 0.25 mg-ethinyl estradiol 35 mcg (SPRINTEC, ORTHO-CYCLEN) 0.25-35 mg-mcg per tablet Take 1 tablet by mouth once daily. Cholecalciferol, Vitamin D3, 1,000 unit cap Take 2 capsules by mouth once daily. sertraline (ZOLOFT) 100 mg tablet Current Facility-Administered Medications Medication Dose Route Frequency perflutren lipid microspheres 1.3 mL in NaCl (PF) 0.9% 10 mL injection (DEFINITY) INTRAVENOUS DIRECTED PRN sodium chloride 0.9 % (flush) 10 mL (BD POSIFLUSH) 10 mL INTRAVENOUS DIRECTED PRN ALLERGIES: ALLERGIES Allergen Reactions Azithromycin GI Upset Megestrol Unknown PAST MEDICAL HISTORY Diagnosis Date Depression Hypothyroidism, acquired 07/12/2021 Obesity, Class III, BMI 40-49.9 (morbid obesity) (HCC) 02/22/2021 Pes cavus 07/12/2021 PAST SURGICAL HISTORY Procedure Laterality Date CYST/MOLE REMOVAL ovary FAMILY HISTORY Problem Relation Age of Onset Arrhythmia Mother a fib Genetic Father + MYBPC3 Genetic Sister + MYBPC3 No Known Problems Sister other (Endometriosis) Sister Arrhythmia Brother bradycardia No Known Problems Brother Cancer Maternal Grandmother NOS Diabetes Maternal Grandfather No Known Problems Paternal Grandmother Genetic Paternal Grandfather Fahr's disease Cardiomyopathy Paternal Aunt HCM, + MYBPC3 Cardiomyopathy Paternal great-grandfather No Known Problems Daughter Social History Tobacco Use Smoking status: Never Smokeless tobacco: Never Substance Use Topics Alcohol use: Never Drug use: Never Reviewed current medications, allergies, past medical history, surgical history, family history and social history today. REVIEW OF SYSTEMS All other reviewed and negative other than HPI. VITALS: BP 95/65 Pulse 83 Ht 149.9 cm (4' 11 ) Wt 108 kg (238 lb) LMP 03/10/2022 (Approximate) SpO2 97% BMI 48.07 kg/m Last 4 Encounter Wt Readings: Date: Wt: 05/21/2022 108 kg (238 lb) 05/07/2022 108 kg (238 lb) 05/05/2022 108 kg (238 lb) 03/28/2022 110.2 kg (243 lb) PHYSICAL EXAMINATION: General appearance: Well appearing, alert, in no acute distress, well-hydrated, well nourished. Skin: Skin color, texture, turgor normal, no suspicious rashes or lesions Head: Normocephalic, no masses, lesions, tenderness or abnormalities Eyes: Anicteric sclera. Pupils are equally round and reactive to light. Extraocular movements are intact. Ears: External ears normal, canals clear Lungs: Lungs clear to auscultation. No wheezing, rhonchi, rales Heart: RRR without murmur, gallop, or rubs. No ectopy Abdomen: Normal abdominal exam, Abdomen soft, non-tender. Bowel sounds normal. No masses, organomegaly ASSESSMENT/PLAN: 1- continue meds. 2. Swelling of both hands - ICD9: 729.81, ICD10: M79.89 - see rheum 3. Elevated sed rate - ICD9: 790.1, ICD10: R70.0 - see rheum. 4. URI, acute - ICD9: 465.9, ICD10: J06.9 - get chest xray as ordered. Call if any recurrent issues. Rene Doherty MD documented in this encounter [facility] 05-20-2022 Miscellaneous Notes Images from the original note were not included. Ms. Lakshmi Mcgee e-mailed me photos of each individual page of her sister's whole exome sequencing report through [employer]. 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 The MYBPC3 variant was also identified in Ms. Lakshmi Mcgee's father. It also appears a de maria luisa variant was identified in the KIF21B gene that was classified as a variant of uncertain significance. Excerpts from patient's sister's exome report: Pathogenic Variant in MYBPC3: VUS in KIF21B: Genetic testing for the MYBPC3 pathogenic variant is recommended. Ms. Lakshmi Mcgee wishes to proceed with genetic testing for the MYBPC3 variant identified in her sister and father. Order for a blood draw placed. She has an appointment in [place] tomorrow and will have her blood drawn then. Results expected in approximately 3 weeks. She will be contacted by telephone with results. Braydon Abernathy MS, [facility] [place] Licensed, Certified Genetic Counselor documented in this encounter [facility] 05-19-2022 Nurse Note Pt here for stress test. When placing EKG leads on pt, noticed several sores on bilateral breasts and in between skin fold. Breast sores were large and scabbed over. No drainage noted. When asked, Pt stated they were from a rash that keeps appearing and she has seen a provider about it. Encouraged pt to f/u and educated on good hygiene. documented in this encounter [facility] 05-19-2022 Note [facility] 05-19-2022 Miscellaneous Notes Please call patient and notify her of stress testing results. Results were without suggestion of ischemia. Thank you! documented in this encounter [facility] 05-19-2022 History of Present illness Narrative RADIOLOGY SERVICE PROGRESS NOTE SERVICE DATE: 05/19/2022 SERVICE TIME: 07:30 AM PATIENT IDENTITY VERIFICATION COMPLETED USING TWO (2) STANDARD IDENTIFIERS: Name and Date of confirmed by patient verbally FALL SCREENING: Has the patient had 2 falls in the last year or 1 fall with injury or currently using an Ambulatory Assistive Device (Walker, Cane, Wheelchair, Crutches, etc.)? No PATIENT GENDER DATA: .female : No status: No ALLERGIES: Reviewed and unchanged MEDICATIONS REVIEWED: No PATIENT RELEVANT IMPLANT DATA REVIEWED: Not Applicable CREATININE: Creatinine Date Value Ref Range Status 05/05/2022 0.73 0.58 - 0.96 mg/dL Final 12/04/2021 0.70 0.58 - 0.96 mg/dL Final 10/28/2021 0.87 0.58 - 0.96 mg/dL Final Estimated Glomerular Filtration Rate Date Value Ref Range Status 05/05/2022 115 >=60 mL/min/1.73m Final Comment: Estimated Glomerular Filtration Rate (eGFR) is calculated using the 2020 CKD-EPI creatinine equation. This equation utilizes serum creatinine, sex, and age as parameters. The creatinine assay has traceable calibration to isotope dilution-mass spectrometry. Refer to KDIGO guidelines for clinical interpretation. In patients with unstable renal function, e.g. those with acute kidney injury, the eGFR may not accurately reflect actual GFR. eGFR- Date Value Ref Range Status 04/30/2021 >60 Final P.O.C.T. RESULTS: N/A May 19, [address] PERFORMED: No IV SITE: Ambulatory: A peripheral IV was started in the Right antecubital site with a Angio cath: 22 gauge. POST EXAM PIV STATUS: Discontinued PROCEDURE TYPE: NM Stress: 14.9 mCi [id number] was administered IV for Rest Imaging at 07:41 by Nika Morrison. 50 mCi [id number] was administered IV for Stress Imaging at 08:59 by Nika Morrison. ADMINISTRATION TIME: PATIENT DISCHARGED TO: Ambulatory patient, left [place] department area. A Diagnostic radioactive procedure has taken place, with no further precautions necessary other than routine body substance precautions. More information regarding radiation safety can be found using this link: [email or web address] SIGNATURE: RT Severino(R) PATIENT NAME: Lakshmi Mcgee DATE: May 19, 2022 TIME: 10:00 AM PAGER/CONTACT #: documented in this encounter [facility] 05-13-2022 Note [facility] 05-07-2022 Note [facility] 05-07-2022 History of Present illness Narrative Patient presents with: Cough HPI: Patient presents today for office visit for follow up on chest x-ray results. Chest X-ray showed some changes that indicate may have had an infection in the past that is resolving. Presents today with cough and sore throat X 1 day. Concerns of tightness underneath left breast in ribcage area during coughing fit. States sometimes there is a bulge in her ribcage. Refers to it feeling like there is something in there . Started cough and sore throat. Throat is a little better. Cough is starting to improving. No covid or flu exposure. Daughter with a uri. No sinus congestion Ears are clogged. No nausea or vomiting or diarrhea. No fever. Mild shortness of breath. Has tightness after a coughing fit. Feels tight at times after. Slightly sore with pressing today. No bruising. Chest xray showed some changes earlier that was probably post infectious or postinflammatory. Was asymptomatic at the time. Repeating chest xray in a few weeks. In hind sight had a cold about three weeks ago that resolved. MEDICATIONS: Current Outpatient Medications Medication Sig FEROSUL 325 mg (65 mg iron) tablet Take 1 tablet by mouth twice daily with meals. metoprolol tartrate, short acting, (LOPRESSOR) 50 mg tablet Take 1 tablet by mouth twice daily. thyroid (TISSUE COORDINATOR THYROID) 15 mg tablet Take 1 tablet by mouth once daily. Take with 30 mg dose for total daily dose of 45 mg. cyclobenzaprine (FLEXERIL) 10 mg tablet Take 10 mg by mouth as needed. naproxen (NAPROSYN) 500 mg tablet Take 500 mg by mouth twice daily. TISSUE COORDINATOR THYROID 30 mg tablet Take 30 mg by mouth once daily. norgestimate 0.25 mg-ethinyl estradiol 35 mcg (SPRINTEC, ORTHO-CYCLEN) 0.25-35 mg-mcg per tablet Take 1 tablet by mouth once daily. Cholecalciferol, Vitamin D3, 1,000 unit cap Take 2 capsules by mouth once daily. sertraline (ZOLOFT) 100 mg tablet Current Facility-Administered Medications Medication Dose Route Frequency perflutren lipid microspheres 1.3 mL in NaCl (PF) 0.9% 10 mL injection (DEFINITY) INTRAVENOUS DIRECTED PRN sodium chloride 0.9 % (flush) 10 mL (BD POSIFLUSH) 10 mL INTRAVENOUS DIRECTED PRN ALLERGIES: ALLERGIES Allergen Reactions Azithromycin GI Upset Megestrol Unknown PAST MEDICAL HISTORY Diagnosis Date Depression Hypothyroidism, acquired 07/12/2021 Obesity, Class III, BMI 40-49.9 (morbid obesity) ([facility]) 02/22/2021 Pes cavus 07/12/2021 PAST SURGICAL HISTORY Procedure Laterality Date CYST/MOLE REMOVAL ovary FAMILY HISTORY Problem Relation Age of Onset Cancer Maternal Grandmother Social History Tobacco Use Smoking status: Never Smokeless tobacco: Never Substance Use Topics Alcohol use: Never Drug use: Never Reviewed current medications, allergies, past medical history, surgical history, family history and social history today. REVIEW OF SYSTEMS All other reviewed and negative other than HPI. VITALS: BP 110/78 Pulse 99 Temp 37.1 C (98.7 F) Ht 149.9 cm (4' 11 ) Wt 108 kg (238 lb) LMP 03/10/2022 (Approximate) SpO2 99% BMI 48.07 kg/m Last 4 Encounter Wt Readings: Date: Wt: 05/05/2022 108 kg (238 lb) 03/28/2022 110.2 kg (243 lb) 02/24/2022 108.9 kg (240 lb) 01/09/2022 105.2 kg (232 lb) PHYSICAL EXAMINATION: General appearance: Well appearing, alert, in no acute distress, well-hydrated, well nourished. Skin: Skin color, texture, turgor normal, no suspicious rashes or lesions Ears: right tm is full and red. Nose/Sinuses: Nares normal, septum midline, mucosa normal, no drainage or sinus tenderness Oropharynx: Lips, mucosa, and tongue normal, teeth and gums normal, oropharynx normal Neck: Supple, no adenopathy; thyroid symmetric, normal size, no bruits Back: Normal exam Lungs: Heart: RRR without murmur, gallop, or rubs. No ectopy Abdomen: Normal abdominal exam, Abdomen soft, non-tender. Bowel sounds normal. No masses, organomegaly ASSESSMENT/PLAN: 1. URI, acute - ICD9: 465.9, ICD10: J06.9 (primary diagnosis) - Symptomatic treatment with prn analgesia - Supportive care with fluids and rest - COVID WITH FLUA+B, ROUTINE 2. Acute otitis media, right - ICD9: 382.9, ICD10: H66.91 - Discussed risks and benefits of new medication with the patient. Advised them to call if any side effects or questions. Red flags for re-assessment reviewed with patient in detail. Call if symptoms worsen at all or if not better in one to two weeks Reviewed diagnosis and treatment options in detail. Questions were answered. Patient expressed understanding of treatment plan. - AMOXICILLIN 875 MG-POTASSIUM CLAVULANATE 125 MG TABLET Rene Doherty MD documented in this encounter [facility] 05-06-2022 Miscellaneous Notes Xray had showed what looked like old infection. Likely needs seen by one of us. documented in this encounter [facility] 05-06-2022 Miscellaneous Notes Patient informed and verbalized understanding. Sending to schedulers. Cha Gomez Her inflammatory markers are still up. Given her finger and hand swelling and ankle swelling and numbers, would recommend seeing rheumatology documented in this encounter [facility] 05-05-2022 Note [facility] 05-05-2022 Miscellaneous Notes Patient notified and verbalizes understanding. Chest xray shows some changes that indicate she may have had an infection in the past that is resolving. Call if any fever or cough. Recheck xray in two to four weeks. documented in this encounter [facility] 05-05-2022 Note [facility] 05-05-2022 Miscellaneous Notes Addended by: RENE DOHERTY on: 05/05/2022 12:06 PM Modules accepted: Orders documented in this encounter [facility] 05-05-2022 History of Present illness Narrative Patient presents with: Edema HPI: Patient presents today for office visit for follow up. Edema: About 1 week in hands/ankles. Does admit to some shortness of breath when her heart rate goes up. Denies chest pain. Pulse was up to 130 at times today has been ok. Has an inappropriate tachycardia. Seems to be doing it more frequently. No dizziness. Feels as if she could pass out when rate goes up/. Had some elevated inflammatory markers recently. No new rashes. No new joint pains. Hands and ankles felt thick . Swelling is around MIP joints and fingers. Can get red when swollen. Some dry eyes. No issues swallowing. Gets occasional heartburn depending on what she eats. Swelling is better today compared to previous. Has gained some weight. Sees cardiology for her palpiations. Has had monitoring in the last year. Had had thyroid tested several times. MEDICATIONS: Current Outpatient Medications Medication Sig FEROSUL 325 mg (65 mg iron) tablet Take 1 tablet by mouth twice daily with meals. thyroid (TISSUE COORDINATOR THYROID) 15 mg tablet Take 1 tablet by mouth once daily. Take with 30 mg dose for total daily dose of 45 mg. metoprolol tartrate, short acting, (LOPRESSOR) 25 mg tablet Take 1 tablet by mouth twice daily. TISSUE COORDINATOR THYROID 30 mg tablet Take 30 mg by mouth once daily. norgestimate 0.25 mg-ethinyl estradiol 35 mcg (SPRINTEC, ORTHO-CYCLEN) 0.25-35 mg-mcg per tablet Take 1 tablet by mouth once daily. Cholecalciferol, Vitamin D3, 1,000 unit cap Take 2 capsules by mouth once daily. sertraline (ZOLOFT) 100 mg tablet cyclobenzaprine (FLEXERIL) 10 mg tablet Take 10 mg by mouth as needed. naproxen (NAPROSYN) 500 mg tablet Take 500 mg by mouth twice daily. Current Facility-Administered Medications Medication Dose Route Frequency perflutren lipid microspheres 1.3 mL in NaCl (PF) 0.9% 10 mL injection (DEFINITY) INTRAVENOUS DIRECTED PRN sodium chloride 0.9 % (flush) 10 mL (BD POSIFLUSH) 10 mL INTRAVENOUS DIRECTED PRN ALLERGIES: ALLERGIES Allergen Reactions Azithromycin GI Upset Megestrol Unknown PAST MEDICAL HISTORY Diagnosis Date Depression Hypothyroidism, acquired 07/12/2021 Obesity, Class III, BMI 40-49.9 (morbid obesity) ([facility]) 02/22/2021 Pes cavus 07/12/2021 PAST SURGICAL HISTORY Procedure Laterality Date CYST/MOLE REMOVAL ovary FAMILY HISTORY Problem Relation Age of Onset Cancer Maternal Grandmother Social History Tobacco Use Smoking status: Never Smokeless tobacco: Never Substance Use Topics Alcohol use: Never Drug use: Never Reviewed current medications, allergies, past medical history, surgical history, family history and social history today. REVIEW OF SYSTEMS All other reviewed and negative other than HPI. VITALS: BP 122/76 Pulse 99 Wt 108 kg (238 lb) LMP 03/10/2022 (Approximate) SpO2 98% BMI 48.07 kg/m Last 4 Encounter Wt Readings: Date: Wt: 05/05/2022 108 kg (238 lb) 03/28/2022 110.2 kg (243 lb) 02/24/2022 108.9 kg (240 lb) 01/09/2022 105.2 kg (232 lb) PHYSICAL EXAMINATION: General appearance: Well appearing, alert, in no acute distress, well-hydrated, well nourished. Skin: Skin color, texture, turgor normal, no suspicious rashes or lesions Head: Normocephalic, no masses, lesions, tenderness or abnormalities Eyes: Anicteric sclera. Pupils are equally round and reactive to light. Extraocular movements are intact. Lungs: Lungs clear to auscultation. No wheezing, rhonchi, rales Heart: RRR without murmur, gallop, or rubs. No ectopy Abdomen: Normal abdominal exam, Abdomen soft, non-tender. Bowel sounds normal. No masses, organomegaly Extremities: No deformities, edema, skin discoloration, clubbing or cyanosis. Good capillary refill. Musculoskeletal: No joint swelling, deformity, or tenderness. No joint swelling or redness today. Peripheral pulses: Normal Neuro: Gait normal. Reflexes normal and symmetric. Sensation grossly intact. ASSESSMENT/PLAN: 1. Tachycardia, unspecified - ICD9: 785.0, ICD10: R00.0 (primary diagnosis) - increase metoprolol. Red flags for re-assessment reviewed with patient in detail. - close follow up. Back to cardiology if worsems/ - ECG COMPLETE - CBC + DIFF - BASIC METABOLIC PNL - XR CHEST 2V FRONTAL/LAT - METOPROLOL TARTRATE 50 MG TABLET 2. Hypothyroidism, acquired - ICD9: 244.9, ICD10: E03.9 - recheck labs. - TSH BLD 3. Edema, unspecified type - ICD9: 782.3, ICD10: R60.9 - is confined to joints. Consider rheum work up. - SED RATE WESTERGREN - C-REACTIVE PROTEIN (CRP) - DANIELLE BY IFA SCREEN - RHEUMATOID FACTOR BL - XR CHEST 2V FRONTAL/LAT 4. SOB (shortness of breath) - ICD9: 786.05, ICD10: R06.02 - XR CHEST 2V FRONTAL/LAT 5. Elevated sed rate - ICD9: 790.1, ICD10: R70.0 - as above. 6. Near syncope - ICD9: 780.2, ICD10: R55 - as above. Ekg shows no acute chagnes. - XR CHEST 2V FRONTAL/LAT 7. Joint swelling - ICD9: 719.00, ICD10: M25.40 - SED RATE WESTERGREN - C-REACTIVE PROTEIN (CRP) - DANIELLE BY IFA SCREEN - RHEUMATOID FACTOR BL Rene Doherty RTO in two to three weeks. documented in this encounter [facility] 03-28-2022 Note [facility] 03-28-2022 Instructions M Vernon Womack PA-C - 03/28/2022 10:47 AM EST See weight loss info. documented in this encounter [facility] 03-28-2022 History of Present illness Narrative 26 year old female with c/o here for follow up Has concerns about a possible hernia under left rib . Something sticks out, slightly tender on palpation. Allergic dermatitis from 01/27/2022 visit following ZIO onitor has improve but no completely resolved but much better Tachycardia Cardiovascular interval hx: 02/24/2022 Cardiology consult Anjuvalencia Fonseca [employer] 01/29/2022 [facility] ER visit palpitations, HR 130 BP 150/90, SaO2 97%. EKG sinus tach, no ischemic change 01/13/2022 ZIO 14d monitor: HR 63-159 bpm, and avg HR of 94 bpm. Predominant underlying rhythm was Sinus Rhythm. Isolated SVEs were rare (<1.0%), SVE Couplets were rare (<1.0%), and no SVE Triplets were present. Isolated VEs were rare (<1.0%), and no VE Couplets or VE Triplets were present. 09/12/2021 echo: LV small, , LVSF WNL, EF 59%, WM WNL RV size and RVSF WNL No valvular abnormalities Tachycardic throughout 08/30/2021 EKG NSR Current meds: Metoprolol tartrate 25mg twice a day Use of NTG: n/a Chest pain, arm, jaw pain, neck, or upper back pain suggestive of angina: No. SOB: No Dyspnea with exertion: No orthopnea: No Cough : No racing or irregular heartbeats: No palpitations: occasional flutter with a bump or a bump-bump syncopal sx: No Headache: No Unexplainable fatigue No Leg swelling: No Nausea: No diaphoresis: No Heartburn: No Claudication: No Smoking: No Following Low cholesterol, high fiber diet? Trying, feels doing a lot better. If on statin: muscle aches? N/a If on statin: GI sx or diarrhea? N/a Additional history none. Lab review: Hypothyroidism, acquired (primary encounter diagnosis) Current medication: TISSUE COORDINATOR thyroid 45mg daily Taking as directed on an empty stomach? No. Thyroid pain: every once in awhile feels a heavy feeling thyroid.. Mass effect: No. Change in energy level/ fatigue? No. I have a 1 y/o Sleep disturbance ?was having problems but feels better now. Temperature Intolerance: cold No, hot Yes. In females, menstrual cycle issues? No: regular cycles, heavy for 2 days and then light If yes: Change in bowel habits? No. If yes: Constipation? Seems to have diarrhea a lot mixed with intermittent solid or soft stool. No black or tarry stools. If yes: Diarrhea? Yes. If yes: as above Weight changes?Yes. 20 lb weight gain since October Memory issues: No. Diaphoresis: No. Numbness, tingling none Radiological imaging with contrast dyes within the last 3 months? No. History of radiation exposure to head or neck area? No. Change in hair or skin? No, aside from rash from ZIo. If yes: Other symptoms: Last 2 Encounter Wt Readings: Date: Wt: 02/24/2022 108.9 kg (240 lb) 01/09/2022 105.2 kg (232 lb) Last thyroid labs: TSH Date Value 01/08/2022 3.300 mIU/L 10/28/2021 4.710 mIU/L 04/30/2021 3.550 uU/mL 03/01/2021 2.880 uU/mL ) Obesity, class iii, bmi 40-49.9 (morbid obesity) (hcc) Persistent weight gain Mild episode of recurrent major depressive disorder (hcc) Current medications: Sertraline 100mg daily Mood: okay Neurodermatitis Prurigo nodularis Left thumbnail with callus form picking, Several small nodular areas on right flank. At the end of the visit patient brings up concern that cardiology nurse practitioner felt that she should have a consult with rheumatology. Patient does not know why she requested this. She has occasional thumb pain but otherwise denies butterfly rash, any unusual rashes, no fevers or chills, no significant joint pain, no issues with bleeding tendencies or bruising tendencies, no issues in the past with renal abnormalities on lab work. Patient has had serology for inflammatory markers related to dizziness and 2020 and tachycardia in the emergency department 2021. Component Latest Ref Rng & Units 02/22/2021 03/01/2021 12/04/2021 12/13/2021 01/08/2022 DANIELLE Negative Negative Negative DANIELLE Titer Negative Negative DANIELLE Pattern Not applicable for negative result. WSR 0 - 20 mm/hr 35 (H) 55 (H) 30 (H) 44 (H) d Dimer 4.14 Rheumatoid Factor <16 IU/mL <10 HISTORIES FAMILY HISTORY Problem Relation Age of Onset Cancer Maternal Grandmother PAST MEDICAL HISTORY Diagnosis Date Depression Hypothyroidism, acquired 07/12/2021 Obesity, Class III, BMI 40-49.9 (morbid obesity) ([facility]) 02/22/2021 Pes cavus 07/12/2021 PAST SURGICAL HISTORY Procedure Laterality Date CYST/MOLE REMOVAL ovary Social History Tobacco Use Smoking status: Never Smokeless tobacco: Never Substance Use Topics Alcohol use: Never Drug use: Never ACTIVE PROBLEM LIST Neurodermatitis Prurigo Nodularis Obesity, Class Iii, Bmi 40-49.9 (Morbid Obesity) ([facility]) Depression Pes Cavus Hypothyroidism, Acquired Chest Wall Pain Current Outpatient Medications Medication Sig Dispense Refill thyroid (TISSUE COORDINATOR THYROID) 15 mg tablet Take 1 tablet by mouth once daily. Take with 30 mg dose for total daily dose of 45 mg. 30 tablet 5 metoprolol tartrate, short acting, (LOPRESSOR) 25 mg tablet Take 1 tablet by mouth twice daily. 60 tablet 5 cyclobenzaprine (FLEXERIL) 10 mg tablet Take 10 mg by mouth as needed. naproxen (NAPROSYN) 500 mg tablet Take 500 mg by mouth twice daily. TISSUE COORDINATOR THYROID 30 mg tablet Take 30 mg by mouth once daily. norgestimate 0.25 mg-ethinyl estradiol 35 mcg (SPRINTEC, ORTHO-CYCLEN) 0.25-35 mg-mcg per tablet Take 1 tablet by mouth once daily. Cholecalciferol, Vitamin D3, 1,000 unit cap Take 2 capsules by mouth once daily. 3 sertraline (ZOLOFT) 100 mg tablet Current Facility-Administered Medications Medication Dose Route Frequency Provider Last Rate Last Admin perflutren lipid microspheres 1.3 mL in NaCl (PF) 0.9% 10 mL injection (DEFINITY) INTRAVENOUS DIRECTED PRN Mary Hardin, PROPERTY INVESTOR.WIRE GALVANIZER sodium chloride 0.9 % (flush) 10 mL (BD POSIFLUSH) 10 mL INTRAVENOUS DIRECTED PRN Mary Hardin, PROPERTY INVESTOR.WIRE GALVANIZER COVID-19 VACCINE(1) Never done PAP TESTING Never done DTAP,TDAP,TD(7 - Td or Tdap) due on 07/25/2017 INFLUENZA(1) Never done EXAM: BP 120/60 Pulse 80 Temp 36.6 C (97.8 F) (Left Tympanic) Resp 20 Wt 110.2 kg (243 lb) LMP 03/10/2022 (Approximate) BMI 49.08 kg/m Pleasant obese young woman in no acute distress. Alert and oriented all spheres. Euthymic with a int of depressed affect. Normal cognition. Speech normal. No deficits to learning or comprehension. Goal oriented. Skin warm, dry, pink to lips and nailbeds. Normal turgor. Right lateral abdomen with areas of skin irritation from picking. Respirations regular and unlabored. Chest is normal shape. Lungs are clear to all moreira with good air exchange through out. HRRR without murmur or gallop. No lifts, heaves, or rubs. Abdomen: active bowel sounds throughout, soft, nontender, no masses or organomegaly. No CVAT. Area of concern for hernia correlates to abdominal rectus muscle attachment under the lateral left rib margin. There is a small muscular band which is not mobile or enlarging with strain. I suspect this is related to somatic dysfunction as patient also has rib restrictions along the 10th rib left posterior` Extrem: no clubbing or cyanosis. Edema: none. Extremities are warm and pink with prompt capillary refill. OMT: With permission: Myofascial release to tender trigger points, HVLA to lower thoracic rib sections x2 ASSESSMENT/PLAN: 1. Hypothyroidism, acquired - ICD9: 244.9, ICD10: E03.9 (primary diagnosis) - Instructed patient on importance of taking on an empty stomach either first thing in the morning or at bedtime. - continue current dose of TISSUE COORDINATOR thyroid 45mg Weight increasing - Behavioral intervention 2. Obesity, Class III, BMI 40-49.9 (morbid obesity) (HCC) - ICD9: 278.01, ICD10: E66.01 Weight increasing - Behavioral intervention 3. Mild episode of recurrent major depressive disorder (HCC) - ICD9: 296.31, ICD10: F33.0 Stable with mild persistent depression 4. Neurodermatitis - ICD9: 698.3, ICD10: L28.0 - discussed skin care of rash - follow up if symptoms persist or worsen. 5. Prurigo nodularis - ICD9: 698.3, ICD10: L28.1 As above 6. Tachycardia, unspecified - ICD9: 785.0, ICD10: R00.0 Rate controlled today 7. Somatic dysfunction of rib - ICD9: 739.8, ICD10: M99.08 Patient has a sense of improvement following procedure, will monitor to see if there is actual improvement over the next few days. Patient is to let us know via MyChart on progress. Nargis Womack PA-C documented in this encounter [facility] 03-03-2022 Miscellaneous Notes Hello, is this something that you would work up or should she see her pcp? Griselda Schafer RN documented in this encounter [facility] 02-24-2022 Instructions Anju Fonseca APRN.WIRE GALVANIZER - 02/24/2022 11:30 AM EST Heart Disease in Women Is heart disease a problem for women? Heart disease is the leading cause of of [place] women. More women from heart disease than from cancer. A heart attack can happen when there are problems with the blood vessels that bring blood to the heart (the coronary arteries). For example, fatty deposits called plaque may build up in the coronary arteries and make them narrower. The narrowing decreases blood flow to the heart. Plaque also increases the chance that blood clots may form and block a blood vessel, which can cause a heart attack or stroke. In the first year after a heart attack, women have an increased risk of . In the first 6 years after a heart attack, they also have a higher risk of a second heart attack. Women are at high risk often because they are older at the time of the heart attack and have other medical problems. Not everyone has the same symptoms. The most common symptoms of a heart attack include: Chest pain or pressure, squeezing, or fullness in the center of your chest that lasts more than a few minutes, or goes away and comes back (may feel like indigestion or heartburn) Pain or discomfort in one or both arms or shoulders, or in your back, neck, jaw, or stomach Trouble breathing Breaking out in a cold sweat for no known reason Along with these symptoms, you may also feel very tired, faint, or be sick to your stomach. Sometimes you can be having a heart attack and not know it. Many women have chest pain or pressure, but sometimes symptoms in women are different from men s symptoms. Or women may have additional symptoms, such as: Unexplained anxiety and nervousness Swelling of the ankles or lower legs Because they may not feel the typical pain in the left side of their chest, many women may ignore the symptoms of a heart attack. Call 911 for emergency help right away if you have these symptoms. Do not drive yourself to the hospital. Immediate emergency care improves your chances of survival and may help avoid damage to your heart. How can women lower their risk for heart disease? If you have high blood pressure, carefully follow your healthcare provider's instructions for keeping it under control. If you are a smoker, stop smoking. Try to keep a healthy weight. If you are overweight, talk to your provider about ways to lose weight. Eat a healthy diet that includes: ?Avoiding salty foods and not adding salt to food ?Increasing fiber, fruits, and vegetables ?Avoiding foods high in fat, cholesterol, and sugar Exercise according to your healthcare provider's instructions. Get enough rest and learn to use relaxation methods to help reduce stress. Treat and control medical conditions such as diabetes and high cholesterol. If you are taking hormone therapy, you and your healthcare provider should discuss the risks and benefits. Hormone therapy may increase the risk for heart disease or stroke. Talk with your provider about taking aspirin. Low-dose aspirin therapy reduces the risk of stroke for women. But it helps to lower a woman s risk of heart attack and other heart problems only if she is 65 or older. Make sure that your provider knows about any other medicines you are taking. If you decide you need to make changes in the way you live, you probably won't be able to turn your life around all at once. Try to develop healthy habits that incorporate your lifestyle goals. If you do, you will greatly decrease your chances for developing heart disease. You can get more information from: [place] [facility] [id number]-[id number]-[id number] ( )www.heart.org Developed by [employer]. Published by [employer]. Copyright 2014 [employer] and/or one of its subsidiaries. All rights reserved. documented in this encounter [facility] 02-24-2022 History of Present illness Narrative Images from the original note were not included. [facility] SE[facility] CARDIOLOGY Cardiology ([facility]) [address] [facility] [id number] OUTPATIENT VISIT February 24, 2022 11:00 AM Chief Complaint Patient presents with: New Patient: Tachycardia History of Present Illness: Lakshmi Mcgee is a 26 year old female who presents for cardiology evaluation. She has no cardiac past medical history. She has no significant family cardiac history. Today, she explains she has a history of tachycardia she believes she has had tachycardia in general for many years. She started noticing symptoms this summer with an elevated heart rate including lightheadedness, chest tightness and dyspnea on exertion. The highest she has noticed her heart rate on her home monitor is about 130. She has cut back on caffeine intake to about 1 cup of coffee a day. She does not recall any other predisposing factors. She has not officially ever tested positive for COVID although she did have elevated inflammatory markers earlier this summer (CRP, D-dimer, sed rate). She does not intentionally participate in aerobic exercise but she does walk and cares for her 2-year-old at home which keeps her active. She occasionally feels like she has swelling in her hands and feet. She denies syncope and orthopnea. She has been started on metoprolol by her PCP which seems to be helping with heart rate and symptoms. She has completed an echocardiogram and monitor already in work up by per PCP which were unrevealing for significant abnormality, arrhythmia. PAST MEDICAL HISTORY Diagnosis Date Depression Hypothyroidism, acquired 07/12/2021 Obesity, Class III, BMI 40-49.9 (morbid obesity) ([facility]) 02/22/2021 Pes cavus 07/12/2021 PAST SURGICAL HISTORY Procedure Laterality Date CYST/MOLE REMOVAL ovary FAMILY HISTORY Problem Relation Age of Onset Cancer Maternal Grandmother Social History Tobacco Use Smoking status: Never Smokeless tobacco: Never Substance Use Topics Alcohol use: Never Drug use: Never Cardiac Risk Factors: none ALLERGIES Allergen Reactions Azithromycin GI Upset Megestrol Unknown Medications: Current Outpatient Medications Medication Sig Dispense Refill thyroid (TISSUE COORDINATOR THYROID) 15 mg tablet Take 1 tablet by mouth once daily. Take with 30 mg dose for total daily dose of 45 mg. 30 tablet 5 metoprolol tartrate, short acting, (LOPRESSOR) 25 mg tablet Take 1 tablet by mouth twice daily. 60 tablet 5 cyclobenzaprine (FLEXERIL) 10 mg tablet Take 10 mg by mouth as needed. naproxen (NAPROSYN) 500 mg tablet Take 500 mg by mouth twice daily. TISSUE COORDINATOR THYROID 30 mg tablet Take 30 mg by mouth once daily. norgestimate 0.25 mg-ethinyl estradiol 35 mcg (SPRINTEC, ORTHO-CYCLEN) 0.25-35 mg-mcg per tablet Take 1 tablet by mouth once daily. Cholecalciferol, Vitamin D3, 1,000 unit cap Take 2 capsules by mouth once daily. 3 sertraline (ZOLOFT) 100 mg tablet Current Facility-Administered Medications Medication Dose Route Frequency Provider Last Rate Last Admin perflutren lipid microspheres 1.3 mL in NaCl (PF) 0.9% 10 mL injection (DEFINITY) INTRAVENOUS DIRECTED PRN Mary Hardin APRN.WIRE GALVANIZER sodium chloride 0.9 % (flush) 10 mL (BD POSIFLUSH) 10 mL INTRAVENOUS DIRECTED PRN Mary Hardin APRN.WIRE GALVANIZER Review of Systems Constitutional: Negative for chills, diaphoresis, fever, malaise/fatigue and weight loss. HENT: Negative for congestion, ear pain, nosebleeds, sinus pain and sore throat. Eyes: Negative for pain. Respiratory: Positive for shortness of breath. Negative for cough and wheezing. Cardiovascular: Positive for chest pain, palpitations and leg swelling. Gastrointestinal: Negative for abdominal pain, blood in stool and melena. Genitourinary: Negative for hematuria. Musculoskeletal: Negative for falls. Neurological: Negative for dizziness, tingling, sensory change, speech change, focal weakness, loss of consciousness, weakness and headaches. Endo/Heme/Allergies: Does not bruise/bleed easily. Psychiatric/Behavioral: Negative for depression, memory loss and suicidal ideas. The patient is not nervous/anxious and does not have insomnia. Physical Examination: Vitals:BP 104/66 Pulse 92 Ht 4' 11 (1.50m) Wt 240 lb (108.9kg) SpO2 97% BMI 48.45 kg/(m^2). BP w/Orthostatic Vitals Date and Time Orthostatic BP Orthostatic Pulse BP Pulse BP Position BP Site BP Cuff Size 02/24/22 1057 -- -- 104/66 92 Sitting Right Arm Large Adult Last 2 Encounter Wt Readings: Date: Wt: 02/24/2022 240 lb (108.9 kg) 01/09/2022 232 lb (105.2 kg) Physical Exam HENT: Head: Normocephalic. Eyes: Pupils: Pupils are equal, round, and reactive to light. Cardiovascular: Rate and Rhythm: Normal rate and regular rhythm. Pulses: Radial pulses are 2+ on the right side and 2+ on the left side. Dorsalis pedis pulses are 2+ on the right side and 2+ on the left side. Heart sounds: Normal heart sounds, S1 normal and S2 normal. Pulmonary: Effort: Pulmonary effort is normal. No accessory muscle usage or respiratory distress. Breath sounds: Normal breath sounds. Abdominal: General: Bowel sounds are normal. Palpations: Abdomen is soft. Musculoskeletal: General: Normal range of motion. Cervical back: Normal range of motion. Right lower leg: No edema. Left lower leg: No edema. Skin: General: Skin is warm and dry. Neurological: Mental Status: She is alert and oriented to person, place, and time. Gait: Gait is intact. Psychiatric: Mood and Affect: Affect normal. Cognition and Memory: Memory normal. Judgment: Judgment normal. Most Recent Cardiac Testing Monitor 11/2021 Patient had a min HR of 63 bpm, max HR of 159 bpm, and avg HR of 94 bpm. Predominant underlying rhythm was Sinus Rhythm. Isolated SVEs were rare (<1.0%), SVE Couplets were rare (<1.0%), and no SVE Triplets were present. Isolated VEs were rare (<1.0%), and no VE Couplets or VE Triplets were present. Monitor 08/2021 Patient had a min HR of 62 bpm, max HR of 165 bpm, and avg HR of 101 bpm. Predominant underlying rhythm was Sinus Rhythm. Isolated SVEs were rare (<1.0%), and no SVE Couplets or SVE Triplets were present. Isolated VEs were rare (<1.0%), VE Couplets were rare (<1.0%), and no VE Triplets were present. Echo 08/2021 CONCLUSIONS: - Technically difficult exam due to body habitus. - Exam indication: Palpitations - The left ventricle is small. Left ventricular systolic function is normal. EF = 59 5% (2D biplane) Left ventricular diastolic function was not evaluated due to E/A fusion. - The right ventricle is normal in size. Right ventricular systolic function is normal. - There are no significant valvular abnormalities. - Patient was tachycardic throughout entire exam. - There are no significant valvular abnormalities. - The patient has not had a prior CC echocardiographic exam for comparison. Assessment and Plan: Palpitations/Tachycardia -hx of tachycardia for many years. symptoms of associated SAHU, lightheadedness, charts tightness associated with tachycardia started -echocardiogram with grossly normal structure and function -14 monitor, 7 day monitor without significant arrhythmia. min HR of 63 bpm, max HR of 159 bpm, and avg HR of 94 bpm -continue metoprolol -recommended conservative measures: stay hydrated, limit stimulants/caffeine, limit stress, routine aerobic exercise. Does not use nicotine -check stress test given other associated symptoms -consider underlying thyroid or rheumatoid influence Obesity -lifestyle modifications -encouraged a heart healthy diet, routine exercise and weight loss Follow up in 6 months. Sooner for abnormal results. Patient to call with any issues or concerns prior to then. Electronically signed by Anju Fonseca APRN.CNP on February 24, 2022, 11:01 AM documented in this encounter [facility] 01-24-2022 History of Present illness Narrative Episode Visit Count: 5 Therapist That Will Accept/Oversee The Plan Of Care: Darvin Valencia Start of Care Date: 12/19/21 Onset Date: 11/28/21 Plan of Care Certification Date: 12/19/21 Next Certification Due Date: 02/18/22 REHABILITATION AND SPORTS THERAPY PHYSICAL THERAPY DISCONTINUANCE OF CARE PLAN OF CARE UPDATE: Assessment: Lakshmi Townsend Mcgee is discontinued from Physical Therapy services due to goal achievement. and maximal benefit.. Patient was seen for 5 visits from Start of Care Date: 12/19/21 to 01/24/2022 and treatment included: Therapeutic exercise and Manual therapy. Patient has seen pain, range of motion, and strength significantly improve and is able to self manage symptoms at this point. Patient encouraged to reach out with any questions or concerns. Goals updated on 01/24/2022. Goals for Episode of Care: created on 12/19/21 through 02/18/22 [place] in home exercise program. Met Patient will decrease pain rating by 2 points to meet minimal clinical important difference for numeric pain rating scale. Met Perform recreational activities with decreased report of symptoms/pain in 8 weeks. Met Sleep through the night without pain. Met Improve postural awareness. Met Patient Goals: Decrease pain, return to lifting and playing with kids as usual, sleep through night without pain SUBJECTIVE: Patient Reason for Visit: Pt doing much better today, mostly has no pain except with lifting heavy (20# and above, like her daughter), and sometimes reaching up. When she does have pain she barely notices it, it's more of an annoying background noise, dull achy, uncomfortable stretch sensation. Pt feels she is in a good spot to manage symptoms on her own. Pain: Pain Pain Level: 0 Pain Location: Shoulder - Right Description: Sore Frequency: Intermittent PROMIS Scales T-scores: mean of general population = 50. 5 points is clinically meaningfully difference Percentiles provide an indication of how the patient's score ranks in relation to the general population. Higher percentile rankings indicate better function/quality of life. 50th percentile is the average of the general population and indicates half of respondents had a worse score. T-scores: mean of general population = 50. 5 points is clinically meaningfully difference Percentiles provide an indication of how the patient's score ranks in relation to the general population. Higher percentile rankings indicate better function/quality of life. 50th percentile is the average of the general population and indicates half of respondents had a worse score. OBJECTIVE MEASURES WITH LEVEL OF FUNCTION: UE and Cervical Strength R UE Strength: 5/5 L UE Strength: 5/5 BUE ROM: WNL TREATMENT: Therapeutic Exercise: 1: Reviewed HEP for proper form and performance 2: Objective measures taken Skilled Intervention: Patient was educated in proper exercise technique and purpose for exercises. Skilled judgment was provided in selection of appropriate interventions. Correct performance of therapeutic exercises was facilitated with verbal and visual cuing. Manual Therapy: 1: STM and TrPr to serratus anterior, infraspinatus push to tolerance 2: *Self STM with tennis ball against wall for HEP addition Skilled Intervention: Manual skills to improve joint mobility, ROM, and decrease pain. Utilized anatomy knowledge of the therapist, and assessment of patient's response to intervention. Billing Therapeutic Exercise Treatment Minutes: 15 Manual TherapyTreatment Minutes: 10 Total Treatment Time Minutes (timed/untimed): 25 Darvin Valencia PT documented in this encounter [facility] 01-15-2022 Miscellaneous Notes Pt notified. Vladimir Pope LPN Let her know monitor was ok. Average heart rate is in the low 90's which is considered a normal rhythm documented in this encounter [facility] 12-24-2021 History of Present illness Narrative Episode Visit Count: 2 Therapist That Will Accept/Oversee The Plan Of Care: Darvin Valencia Start of Care Date: 12/19/21 Onset Date: 11/28/21 Plan of Care Certification Date: 12/19/21 Next Certification Due Date: 02/18/22 Patient Identified by Name and Date of : Yes REHABILITATION AND SPORTS THERAPY PHYSICAL THERAPY TREATMENT NOTE ASSESSMENT: Lakshmi Mcgee tolerated the session with decreased symptoms. She demonstrated difficulty with thoracic movements. The patient will continue to benefit from ongoing skilled physical therapy to progress toward set goals. PLAN FOR NEXT VISIT: Muscle energy techniques for ribs SUBJECTIVE: Patient Reason for Visit: Pt reports her pain is getting better. Pt reports lifitng a 20 pound weight with RUE standing going from trunk flexion to trunk extension. Pt stated MET for anterior rib with towel helped ease the pain. Pain: Pain Pain Level: 5 Pain Location: Shoulder - Right Description: Sharp;Aching Post Treatment Pain Post Treatment Pain Level: Better Post Treatment Pain Location: Shoulder - Right (Right side of rib, serratus anterior/lat dorsi) Post Treatment Symptoms: Pt noted that the MET performed was successful in decreasing pain OBJECTIVE MEASURES WITH LEVEL OF FUNCTION: Pt had minor relief of symptoms after trigger point to serratus anterior. TREATMENT: Therapeutic Exercise: 1: *Pulleys flexion 2x10 2: Thoracic spine stretch laterally x1 (d/c no releif) 3: Thoracic spine rotation x1 B (clicking sensation near R serratus anterior) Skilled Intervention: Patient was educated in proper exercise technique and purpose for exercises. Reviewed and educated patient on additions/changes for home exercise program as above (*). Skilled judgment was provided in selection of appropriate interventions. Education regarding posture correction/use of pulleys. Manual Therapy: 1: MET for anterior rib (Decreased pain, not sharp) 3: STM to serratus anterior, lat dorsi push to tolerance (Feeling better with STM) 4: Trigger point to serratus anterior Skilled Intervention: Manual skills to improve joint mobility, ROM, and decrease pain. Utilized anatomy knowledge of the therapist, and assessment of patient's response to intervention. Billing Therapeutic Exercise Treatment Minutes: 5 Manual TherapyTreatment Minutes: 34 Total Treatment Time Minutes (timed/untimed): 39 TANIA Aaron PT documented in this encounter [facility] 12-20-2021 Miscellaneous Notes This encounter was opened in error. @[email or web address]@ documented in this encounter [facility] 12-19-2021 History of Present illness Narrative Episode Visit Count: 1 Therapist That Will Accept/Oversee The Plan Of Care: Darvin Valencia Start of Care Date: 12/19/21 Onset Date: 11/28/21 Plan of Care Certification Date: 12/19/21 Next Certification Due Date: 02/18/22 Patient Identified by Name and Date of : Yes REHABILITATION AND SPORTS THERAPY PHYSICAL THERAPY EVALUATION PLAN OF CARE: Assessment: Lakshmi Mcgee presents with chief complaint of R sided rib/chest/thoracic back pain that interferes with heavy exertion;lifting;physical activities;recreational activities;sleeping;reaching behind back;reaching overhead;cleaning;cooking . She presents with impairments in ADL's, joint mobility, overall function, range of motion, and tissue tenderness. Prognosis for therapy is Fair due to: clinical presentation;multiple co- morbidities;Prognosis may be improved by within-session changes. She will benefit from skilled therapy services to meet the goals established for this plan of care as noted below. Goals for Episode of Care: created on 12/19/21 through 02/18/22 [place] in home exercise program. Patient will decrease pain rating by 2 points to meet minimal clinical important difference for numeric pain rating scale. Perform recreational activities with decreased report of symptoms/pain in 8 weeks. Sleep through the night without pain. Improve postural awareness. Patient Goals: Decrease pain, return to lifting and playing with kids as usual, sleep through night without pain Planned Interventions, Frequency, and Duration: Current Frequency: 1x/week Duration: 8 weeks Total Number of Visits Planned: 8 Planned Treatment Interventions: Therapeutic exercise (66064);Neuromuscular re-education (71239);Manual therapy (58343);Therapeutic activities (99784);Self-group home management ([id number]) PLAN FOR NEXT VISIT: Muscle energy techniques for ribs Patient demonstrates good understanding of plan of care and treatment. The above goals and plan of care were discussed and agreed upon by patient/family. SUBJECTIVE: Lakshmi Mcgee is a 26 year old female seen today for Pt complains of left sided shoulder pain which wraps into her ribs Patient Goals: Decrease pain, return to lifting and playing with kids as usual, sleep through night without pain Functional Limitations: heavy exertion;lifting;physical activities;recreational activities;sleeping;reaching behind back;reaching overhead;cleaning;cooking Prior Level of Function: Independent without limitations Intake Information: Prescription present Previous Treatment: Pain meds ;Muscle relaxer Pain: Pain Pain Level: 8 Pain Location: Shoulder - Right (rib) Description: Shooting;Sore;Stiffness;Tightness Post Treatment Pain Post Treatment Pain Level: 7 Post Treatment Pain Location: Shoulder - Right (Right side of rib, serratus anterior/lat dorsi) Post Treatment Pain Description: Sore;Tightness Post Treatment Symptoms: Pt noted that the MET performed was successful in decreasing pain slightly PROMIS Scales T-scores: mean of general population = 50. 5 points is clinically meaningfully difference Percentiles provide an indication of how the patient's score ranks in relation to the general population. Higher percentile rankings indicate better function/quality of life. 50th percentile is the average of the general population and indicates half of respondents had a worse score. T-scores: mean of general population = 50. 5 points is clinically meaningfully difference Percentiles provide an indication of how the patient's score ranks in relation to the general population. Higher percentile rankings indicate better function/quality of life. 50th percentile is the average of the general population and indicates half of respondents had a worse score. OBJECTIVE MEASURES WITH LEVEL OF FUNCTION: UE AROM R Shoulder Flex: (moderate limitation pain at end range) R Shoulder ABduction: (moderate limitation pain at end range) R Shoulder External Rotation: (painful w/pressure) UE Flexibility Flexibility: Comments Flexibility Comments: Serratus anterior painful with punch motion Education: Education Learning/educational needs: Home exercise program Education Provided: Yes, see treatment interventions for education provided Education Provided To: Patient TREATMENT: Evaluation Manual Therapy: 1: MET for anterior rib 2: *Self MET for anterior rib (Showed pt how to do at home) 3: STM to serratus anterior, lat dorsi push to tolerance 4: Rib mobilizations PA Skilled Intervention: Manual skills to improve joint mobility, ROM, and decrease pain. Utilized anatomy knowledge of the therapist, and assessment of patient's response to intervention. Billing * Evaluation Low Complexity: 1 Unit Manual TherapyTreatment Minutes: 25 Total Treatment Time Minutes (timed/untimed): 45 Juan Jose Dunbar, LEXI Valencia PT Supervising therapist was present and guided the care of the patient for the entire session on this date. All documentation was reviewed and agreed upon. Darvin Valencia PT documented in this encounter [facility] documented as of this encounter (statuses as of 05/21/2022) [facility] History of Past illness Narrative* Problem Noted Date Resolved Date Chest wall pain 12/19/2021 05/21/2022 documented as of this encounter (statuses as of 05/22/2022) [facility] History of Past illness Narrative* Problem Noted Date Resolved Date Chest wall pain 12/19/2021 05/21/2022 documented as of this encounter (statuses as of 05/24/2022) [facility] History of Past illness Narrative* Problem Noted Date Resolved Date Chest wall pain 12/19/2021 05/21/2022 documented as of this encounter (statuses as of 05/24/2022) [address]22 History of Past illness Narrative* Problem Noted Date Resolved Date Chest wall pain 12/19/2021 05/21/2022 documented as of this encounter (statuses as of 05/27/2022) [address]22 History of Past illness Narrative* Problem Noted Date Resolved Date Chest wall pain 12/19/2021 05/21/2022 documented as of this encounter (statuses as of 06/03/2022) [address]22 History of Past illness Narrative* Problem Noted Date Resolved Date Chest wall pain 12/19/2021 05/21/2022 documented as of this encounter (statuses as of 06/05/2022) [address]22 History of Past illness Narrative* Problem Noted Date Resolved Date Chest wall pain 12/19/2021 05/21/2022 documented as of this encounter (statuses as of 06/10/2022) [address]22 History of Past illness Narrative* Problem Noted Date Resolved Date Chest wall pain 12/19/2021 05/21/2022 documented as of this encounter (statuses as of 06/13/2022) [address]22 History of Past illness Narrative* Problem Noted Date Resolved Date Chest wall pain 12/19/2021 05/21/2022 documented as of this encounter (statuses as of 06/16/2022) [address]22 History of Past illness Narrative* Problem Noted Date Resolved Date Chest wall pain 12/19/2021 05/21/2022 documented as of this encounter (statuses as of 06/16/2022) [address]22 History of Past illness Narrative* Problem Noted Date Resolved Date Chest wall pain 12/19/2021 05/21/2022 documented as of this encounter (statuses as of 06/16/2022) [address]22 History of Past illness Narrative* Problem Noted Date Resolved Date Chest wall pain 12/19/2021 05/21/2022 documented as of this encounter (statuses as of 06/17/2022) [address]22 History of Past illness Narrative* Problem Noted Date Resolved Date Chest wall pain 12/19/2021 05/21/2022 documented as of this encounter (statuses as of 06/18/2022) [address]22 History of Past illness Narrative* Problem Noted Date Resolved Date Chest wall pain 12/19/2021 05/21/2022 documented as of this encounter (statuses as of 06/23/2022) [address]22 History of Past illness Narrative* Problem Noted Date Resolved Date Chest wall pain 12/19/2021 05/21/2022 documented as of this encounter (statuses as of 06/24/2022) [address]22 History of Past illness Narrative* Problem Noted Date Resolved Date Chest wall pain 12/19/2021 05/21/2022 documented as of this encounter (statuses as of 06/25/2022) [address] History of Past illness Narrative* Problem Noted Date Resolved Date Chest wall pain 12/19/2021 05/21/2022 documented as of this encounter (statuses as of 06/26/2022) [address]22 History of Past illness Narrative* Problem Noted Date Resolved Date Chest wall pain 12/19/2021 05/21/2022 documented as of this encounter (statuses as of 07/09/2022) [address]22 History of Past illness Narrative* Problem Noted Date Resolved Date Chest wall pain 12/19/2021 05/21/2022 documented as of this encounter (statuses as of 07/22/2022) [address]22 History of Past illness Narrative* Problem Noted Date Resolved Date Chest wall pain 12/19/2021 05/21/2022 documented as of this encounter (statuses as of 07/22/2022) [address]22 History of Past illness Narrative* Problem Noted Date Resolved Date Chest wall pain 12/19/2021 05/21/2022 documented as of this encounter (statuses as of 08/28/2022) [address]22 History of Past illness Narrative* Problem Noted Date Resolved Date Chest wall pain 12/19/2021 05/21/2022 documented as of this encounter (statuses as of 09/03/2022) [address]22 History of Past illness Narrative* Problem Noted Date Resolved Date Chest wall pain 12/19/2021 05/21/2022 documented as of this encounter (statuses as of 09/12/2022) [address] History of Past illness Narrative* Problem Noted Date Resolved Date Chest wall pain 12/19/2021 05/21/2022 documented as of this encounter (statuses as of 09/12/2022) [address]22 History of Past illness Narrative* Problem Noted Date Resolved Date Chest wall pain 12/19/2021 05/21/2022 documented as of this encounter (statuses as of 09/22/2022) [address]22 History of Past illness Narrative* Problem Noted Date Diagnosed Date Resolved Date Chest wall pain 12/19/2021 05/21/2022 documented as of this encounter (statuses as of 10/14/2022) [address] History of Past illness Narrative* Problem Noted Date Diagnosed Date Resolved Date Chest wall pain 12/19/2021 05/21/2022 documented as of this encounter (statuses as of 10/17/2022) [address]22 History of Past illness Narrative* Problem Noted Date Diagnosed Date Resolved Date Chest wall pain 12/19/2021 05/21/2022 documented as of this encounter (statuses as of 11/05/2022) [address]22 History of Past illness Narrative* Problem Noted Date Diagnosed Date Resolved Date Chest wall pain 12/19/2021 05/21/2022 documented as of this encounter (statuses as of 11/10/2022) [address] History of Past illness Narrative* Problem Noted Date Diagnosed Date Resolved Date Chest wall pain 12/19/2021 05/21/2022 documented as of this encounter (statuses as of 01/03/2023) [address]22 History of Past illness Narrative* Problem Noted Date Diagnosed Date Resolved Date Chest wall pain 12/19/2021 05/21/2022 documented as of this encounter (statuses as of 01/12/2023) [address]22 History of Past illness Narrative* Problem Noted Date Diagnosed Date Resolved Date Chest wall pain 12/19/2021 05/21/2022 documented as of this encounter (statuses as of 01/31/2023) [address] History of Past illness Narrative* Problem Noted Date Diagnosed Date Resolved Date Chest wall pain 12/19/2021 05/21/2022 documented as of this encounter (statuses as of 01/31/2023) [address] History of Past illness Narrative* Problem Noted Date Diagnosed Date Resolved Date Chest wall pain 12/19/2021 05/21/2022 documented as of this encounter (statuses as of 01/31/2023) [address] History of Past illness Narrative* Problem Noted Date Diagnosed Date Resolved Date Chest wall pain 12/19/2021 05/21/2022 documented as of this encounter (statuses as of 01/31/2023) [address] History of Past illness Narrative* Problem Noted Date Diagnosed Date Resolved Date Chest wall pain 12/19/2021 05/21/2022 documented as of this encounter (statuses as of 01/31/2023) [address] History of Past illness Narrative* Problem Noted Date Diagnosed Date Resolved Date Chest wall pain 12/19/2021 05/21/2022 documented as of this encounter (statuses as of 01/31/2023) [facility] History of Present illness Narrative* Rene Doherty MD - 12/17/2021 2:00 PM EDT Patient presents with: ER F/U HPI: Patient presents today for office visit for ER F/U from [facility] on 12/13/21 for racing heart. A-fibruled out. Tachycardia. Referred to Cardio. Has follow up already scheduled. After last ov. D dimer was up. Cta in [facility] was negative. Just showed fatty liver. Was placed on medrol dose darya. Apparently has also noted fast heart rates and it was going up all day. Hr was in the 130's Ekg was negative for a fib. They thought it was a tachycardia. They referred her to see [facility]. They did not do any labs and then they cancelled it apparently. They had added metoprolol. Feels much better. Is now back to normal after relaxing. Was back in ER on 12/13. I do not have those records. I cannot get them off of care everywhere as well. Chest wall is still sore. Somewhat better but not perfect, Still can feel some swelling at times Worse with movement. Laying on it or picking things up will bother her. No gi symptoms, no urinary symptoms. No fever or chills. No cough. No gi issues. No rashes. No new joint pain or swelling that is consistent. Mild eye dryness. No issues swallowing. Still on ocp No bleeding issues. See previous ov: HPI: Patient presents today for office visit for pain in right shoulder blade that radiates down into right side and underneath right breast. Describes pain as sharp but sometimes dull and states it is constant. Symptoms ongoing for past two weeks. Seen in [facility] on 11/24 and 11/25. See scanned docs. Xray was done which was negative. Was attributed to musculoskeletal pain. Symptoms started two weeks ago. Was lifting weights but not sure if contributed. Pain is helped by heating pad. Pain is worse with movement. No shortness of breath. No cough. No chest pain on the left side. No no gi issues. No rashes. Component Latest Ref Rng & Units 12/13/2021 WBC 3.70 - 11.00 k/uL 11.88 (H) RBC 3.90 - 5.20 m/uL 4.79 Hemoglobin 11.5 - 15.5 g/dL 14.0 Hematocrit 36.0 - 46.0 % 45.0 MCV 80.0 - 100.0 fL 93.9 MCH 26.0 - 34.0 pg 29.2 MCHC 30.5 - 36.0 g/dL 31.1 RDW-CV 11.5 - 15.0 % 13.9 Platelet Count 150 - 400 k/uL 422 (H) MPV 9.0 - 12.7 fL 9.0 Neut% % 71.0 Abs Neut (ANC) 1.45 - 7.50 k/uL 8.43 (H) Lymph% % 21.3 Abs Lymph 1.00 - 4.00 k/uL 2.53 [place]% % 3.8 Abs [place] <0.87 k/uL 0.45 Eosin% % 1.5 Abs Eosin <0.46 k/uL 0.18 Baso% % 0.5 Abs Baso <0.11 k/uL 0.06 Immature Gran % % 1.9 IMMATURE GRANS (ABS) <0.10 k/uL 0.23 (H) NRBC /100 WBC 0.0 Absolute nRBC <0.01 k/uL <0.01 DTYPE Auto WSR 0 - 20 mm/hr 30 (H) CRP <0.9 mg/dL 4.1 (H) DANIELLE Negative Negative Rheumatoid Factor <16 IU/mL <10 Component Latest Ref Rng & Units 12/04/2021 WBC 3.70 - 11.00 k/uL 13.34 (H) RBC 3.90 - 5.20 m/uL 4.57 Hemoglobin 11.5 - 15.5 g/dL 13.1 Hematocrit 36.0 - 46.0 % 42.4 MCV 80.0 - 100.0 fL 92.8 MCH 26.0 - 34.0 pg 28.7 MCHC 30.5 - 36.0 g/dL 30.9 RDW-CV 11.5 - 15.0 % 13.9 Platelet Count 150 - 400 k/uL 337 MPV 9.0 - 12.7 fL 9.3 Neut% % 73.9 Abs Neut (ANC) 1.45 - 7.50 k/uL 9.85 (H) Lymph% % 19.0 Abs Lymph 1.00 - 4.00 k/uL 2.54 [place]% % 3.6 Abs [place] <0.87 k/uL 0.48 Eosin% % 1.8 Abs Eosin <0.46 k/uL 0.24 Baso% % 0.6 Abs Baso <0.11 k/uL 0.08 Immature Gran % % 1.1 IMMATURE GRANS (ABS) <0.10 k/uL 0.15 (H) NRBC /100 WBC 0.0 Absolute nRBC <0.01 k/uL <0.01 DTYPE Auto Protein, Total 6.3 - 8.0 g/dL 7.7 Albumin 3.9 - 4.9 g/dL 3.9 Calcium 8.5 - 10.2 mg/dL 9.8 Bilirubin, Total 0.2 - 1.3 mg/dL 0.2 Alkaline Phosphatase 34 - 123 U/L 114 AST 13 - 35 U/L 14 ALT 7 - 38 U/L 15 Glucose 74 - 99 mg/dL 70 (L) BUN 7 - 21 mg/dL 9 Creatinine 0.58 - 0.96 mg/dL 0.70 Sodium 136 - 144 mmol/L 138 Potassium 3.7 - 5.1 mmol/L 4.3 Chloride 97 - 105 mmol/L 103 CO2 22 - 30 mmol/L 23 Anion Gap 9 - 18 mmol/L 12 eGFR >=60 mL/min/1.73m 121 WSR 0 - 20 mm/hr 55 (H) d Dimer 4.14 MEDICATIONS: Current Outpatient Medications Medication Sig thyroid (TISSUE COORDINATOR THYROID) 15 mg tablet Take 1 tablet by mouth once daily. Take with 30 mg dose for totaldaily dose of 45 mg. metoprolol tartrate, short acting, (LOPRESSOR) 25 mg tablet Take 1 tablet by mouth twice daily. cyclobenzaprine (FLEXERIL) 10 mg tablet Take 10 mg by mouth as needed. naproxen (NAPROSYN) 500 mg tablet Take 500 mg by mouth twice daily. TISSUE COORDINATOR THYROID 30 mg tablet Take 30 mg by mouth once daily. ferrous sulfate 325 mg (65 mg iron) tablet Take 1 tablet by mouth twice daily with meals. norgestimate 0.25 mg-ethinyl estradiol 35 mcg (SPRINTEC, ORTHO-CYCLEN) 0.25-35 mg-mcg per tablet Take 1 tablet by mouth once daily. Cholecalciferol, Vitamin D3, 1,000 unit cap Take 2 capsules by mouth once daily. sertraline (ZOLOFT) 100 mg tablet Current Facility-Administered Medications Medication Dose Route Frequency perflutren lipid microspheres 1.3 mL in NaCl (PF) 0.9% 10 mL injection (DEFINITY) INTRAVENOUS DIRECTED PRN sodium chloride 0.9 % (flush) 10 mL (BD POSIFLUSH) 10 mL INTRAVENOUS DIRECTED PRN ALLERGIES: ALLERGIES Allergen Reactions Azithromycin GI Upset Megestrol Unknown PAST MEDICAL HISTORY Diagnosis Date Depression Hypothyroidism, acquired 07/12/2021 Obesity, Class III, BMI 40-49.9 (morbid obesity) (HCC) 02/22/2021 Pes cavus 07/12/2021 PAST SURGICAL HISTORY Procedure Laterality Date CYST/MOLE REMOVAL ovary FAMILY HISTORY Problem Relation Age of Onset Cancer Maternal Grandmother Social History Tobacco Use Smoking status: Never Smokeless tobacco: Never Substance Use Topics Alcohol use: Never Drug use: Never Reviewed current medications, allergies, past medical history, surgical history, family history andsocial history today. REVIEW OF SYSTEMS All other reviewed and negative other than HPI. VITALS: BP 110/76 Pulse 89 Ht 149.9 cm (4' 11 ) Wt 104.8 kg (231 lb) SpO2 98% BMI 46.66 kg/m Last 4 Encounter Wt Readings: Date: Wt: 12/04/2021 105.9 kg (233 lb 6.4 oz) 11/18/2021 101.3 kg (223 lb 4.8 oz) 11/16/2021 102.1 kg (225 lb) 10/28/2021 101.2 kg (223 lb) PHYSICAL EXAMINATION: General appearance: Well appearing, alert, in no acute distress, well-hydrated, well nourished. Skin: Skin color, texture, turgor normal, no suspicious rashes or lesions Head: Normocephalic, no masses, lesions, tenderness or abnormalities Chest wall. beck tender on right side Lungs: Lungs clear to auscultation. No wheezing, rhonchi, rales Heart: RRR without murmur, gallop, or rubs. No ectopy Abdomen: Normal abdominal exam, Abdomen soft, non-tender. Bowel sounds normal. No masses, organomegaly Extremities: No deformities, edema, skin discoloration, clubbing or cyanosis. Good capillary refill. Musculoskeletal: No joint swelling, deformity, or tenderness Peripheral pulses: Normal ASSESSMENT/PLAN: 1. Tachycardia - ICD9: 785.0, ICD10: R00.0 (primary diagnosis) - continue betablocker. Get er notes. Has appt with cardiology but not until January. Red flags for re-assessment reviewed with patient in detail. - OUTSIDE VENDOR CARDIAC OUTPATIENT EXTENDED RHYTHM RECORDING (WITHOUT TELEMETRY) 2. Elevated sed rate - ICD9: 790.1, ICD10: R70.0 - improving but was after steroids. Unsure why. Recheck labs in two weeks. - SED RATE WESTERGREN - C-REACTIVE PROTEIN (CRP) 3. Hypothyroidism, acquired - ICD9: 244.9, ICD10: E03.9 - recheck labs. - TSH BLD - T4/FTI/T4U 4. Chest wall pain - ICD9: 786.52, ICD10: R07.89 - appears musculoskeletal. - CONSULT TO PHYSICAL THERAPY 5. Palpitations - ICD9: 785.1, ICD10: R00.2 - OUTSIDE VENDOR CARDIAC OUTPATIENT EXTENDED RHYTHM RECORDING (WITHOUT TELEMETRY) Rene Doherty MD [facility] Miscellaneous Notes* Telephone Encounter - Rene Doherty MD - 12/17/2021 10:05 AM EDT Ok will see at appt * Telephone Encounter - Yudelka Diaz Ma - 12/17/2021 9:40 AM EDT Right side is swollen and sore again. Rating pain at a 4 out of 10, describing pain as dull, sometimes sharp. Has appointment with provider this afternoon. * Telephone Encounter - Rene Doherty MD - 12/16/2021 5:40 PM EDT Labs are all improving. Her white count is almost normal. Her crp and sed rate are mildly up but improving. How feelimg? Any current joint pain. Any more chest discomfort? [facility] Miscellaneous Notes* Telephone Encounter - Constanza Rivas LPN - 12/13/2021 11:53 AM EDT Last office visit: 12/04/21 Next appointment scheduled: 12/17/21 Last labs: 10/28/21 Patient phones requesting refills as follows: Requested Prescriptions Pending Prescriptions Disp Refills thyroid (TISSUE COORDINATOR THYROID) 15 mg tablet 30 tablet 5 Sig: Take 1 tablet by mouth once daily. Take with 30 mg dose for total daily dose of 45 mg. Please review and advise. Constanza Rivas LPN [facility] Miscellaneous Notes* Telephone Encounter - Pilar Donato LPN - 12/05/2021 9:22 AM EDT Patient was notified and verbalizes understanding. * Telephone Encounter - Rene Doherty MD - 12/05/2021 8:53 AM EDT Her sed rate and white count are up. Reviewed her er report and had sent in her medrol Lets repeat labs next week after she has finished the medrol and see how feeling. Have her follow up with me in one to two weeks after labs. Call if any fever or s/s of infection. [facility] Miscellaneous Notes* Telephone Encounter - Vladimir Pope LPN - 12/05/2021 8:28 AM EDT ER report printed. Vladimir Pope LPN * Telephone Encounter - Rene Doherty MD - 12/05/2021 8:06 AM EDT Can we pull ER notes and see what occurred for me. Thank you * Telephone Encounter - Rene Doherty MD - 12/04/2021 4:55 PM EDT See TE [facility] Miscellaneous Notes* Telephone Encounter - Deb Roy RN - 12/04/2021 4:23 PM EDT Spoke with patient. Given message from provider's office. Patient verbalizes understanding. She states she will go to [facility] ER now. Deb Roy RN * Telephone Encounter - Pilar Donato LPN - 12/04/2021 4:15 PM EDT Left message for patient to call office and speak with nurse. Will also send a [employer] message. * Telephone Encounter - Rene Doherty MD - 12/04/2021 4:09 PM EDT D dimer is really high. Given her pain, to Er of choice to get looked at and fax lab result to them. Can also fax note. * Telephone Encounter - Deb Roy RN - 12/04/2021 4:00 PM EDT Ronal @ [facility] Lab calling with critical lab value. D dimer result = 4.14 microgram/ml. eDb Roy RN [facility] History of Present illness Narrative* Rene Doherty MD - 12/04/2021 1:52 PM EDT Patient presents with: Pain: C/O Constant R shoulder blade pain that radiates down into right side underneath right breast. Describes pain as sharp but sometimes dull pain. SOB with and without exertion. Symptoms have beengoing on past two weeks. Has tried OTC Tylenol and Ibuprofen, Rx'd Naproxen and muscle relaxer withno relief. Two ER visits. HPI: Patient presents today for office visit for pain in right shoulder blade that radiates down into right side and underneath right breast. Describes pain as sharp but sometimes dull and states it is constant. Symptoms ongoing for past two weeks. Seen in [place] [facility] on 11/24 and 11/25. See scanned docs. Xray was done which was negative. Was attributed to musculoskeletal pain. Symptoms started two weeks ago. Was lifting weights but not sure if contributed. Pain is helped by heating pad. Pain is worse with movement. No shortness of breath. No cough. No chest pain on the left side. No no gi issues. No rashes. MEDICATIONS: Current Outpatient Medications Medication Sig naproxen (NAPROSYN) 500 mg tablet Take 500 mg by mouth twice daily. thyroid (TISSUE COORDINATOR THYROID) 15 mg tablet Take 1 tablet by mouth once daily. Take with 30 mg dose for totaldaily dose of 45 mg. TISSUE COORDINATOR THYROID 30 mg tablet Take 30 mg by mouth once daily. ferrous sulfate 325 mg (65 mg iron) tablet Take 1 tablet by mouth twice daily with meals. norgestimate 0.25 mg-ethinyl estradiol 35 mcg (SPRINTEC, ORTHO-CYCLEN) 0.25-35 mg-mcg per tablet Take 1 tablet by mouth once daily. Cholecalciferol, Vitamin D3, 1,000 unit cap Take 2 capsules by mouth once daily. sertraline (ZOLOFT) 100 mg tablet cyclobenzaprine (FLEXERIL) 10 mg tablet Take 10 mg by mouth as needed. Current Facility-Administered Medications Medication Dose Route Frequency perflutren lipid microspheres 1.3 mL in NaCl (PF) 0.9% 10 mL injection (DEFINITY) INTRAVENOUS DIRECTED PRN sodium chloride 0.9 % (flush) 10 mL (BD POSIFLUSH) 10 mL INTRAVENOUS DIRECTED PRN ALLERGIES: ALLERGIES Allergen Reactions Azithromycin GI Upset Megestrol Unknown PAST MEDICAL HISTORY Diagnosis Date Depression Hypothyroidism, acquired 07/12/2021 Obesity, Class III, BMI 40-49.9 (morbid obesity) (HCC) 02/22/2021 Pes cavus 07/12/2021 PAST SURGICAL HISTORY Procedure Laterality Date CYST/MOLE REMOVAL ovary FAMILY HISTORY Problem Relation Age of Onset Cancer Maternal Grandmother Social History Tobacco Use Smoking status: Never Smokeless tobacco: Never Substance Use Topics Alcohol use: Never Drug use: Never Reviewed current medications, allergies, past medical history, surgical history, family history andsocial history today. REVIEW OF SYSTEMS All other reviewed and negative other than HPI. VITALS: BP 110/72 Pulse 111 Ht 149.9 cm (4' 11 ) Wt 105.9 kg (233 lb 6.4 oz) SpO2 98% BMI 47.14 kg/m Last 4 Encounter Wt Readings: Date: Wt: 11/18/2021 101.3 kg (223 lb 4.8 oz) 11/16/2021 102.1 kg (225 lb) 10/28/2021 101.2 kg (223 lb) 10/23/2021 101.6 kg (224 lb) PHYSICAL EXAMINATION: General appearance: Well appearing, alert, in no acute distress, well-hydrated, well nourished. Skin: Skin color, texture, turgor normal, no suspicious rashes or lesions Head: Normocephalic, no masses, lesions, tenderness or abnormalities Chest wall is tender to touch. Lungs: Lungs clear to auscultation. No wheezing, rhonchi, rales Heart: RRR without murmur, gallop, or rubs. No ectopy Abdomen: Normal abdominal exam, Abdomen soft, non-tender. Bowel sounds normal. No masses, organomegaly Extremities: No deformities, edema, skin discoloration, clubbing or cyanosis. Good capillary refill. Musculoskeletal: No joint swelling, deformity, or tenderness ASSESSMENT/PLAN: 1. Chest pain, unspecified type - ICD9: 786.50, ICD10: R07.9 - most of pain is reproducible. She asks about further imaging. Doubt things like PE etc. Can do labs to make sure. Add medrol dose darya. Discussed risks and benefits of new medication with the patient. Advised them to call if any side effects or questions. Red flags for re-assessment reviewed with patient in detail. Call if symptoms worsen at all or if not better in one to two weeks - CBC + DIFF - COMP METABOLIC PANEL - D-DIMER - SED RATE PAMELA Doherty documented in this encounterWayne Hospital08-22-2022 Instructions* Patient Instructions* Leslie Perez RD - 11/18/2021 2:50 PM EDT Consider tracking intake with judith aiming for 1500 calories; do not adjust for exercise Increase cardio to at least 4 days per week preferably 5 for last at least 30 min Make sure starches are whole grain, high fiber when having Continue to follow the plate method Continue three meals and no snacks Include lean protein in each meal, save fruits and starches for last in the meal Continue mindful eating guidelines; finish eating comfortable, not full documented in this encounterWayne Hospital08-22-2022 History of Present illness Narrative* Leslie Perez RD - 11/18/2021 2:31 PM EDT Nutritional Therapy Re-Assessment Nutrition Diagnosis: Overweight/obesity, related to, excess energy intake and physical inactivity, as evidenced by BMI above normative standard for age and gender RECOMMENDED MALNUTRITION DIAGNOSIS: NO MALNUTRITION IDENTIFIED NUTRITION CARE PLAN: Nutrition Intervention 11/18/2021: modify type and amount of food or beverage Consider tracking intake with judith aiming for 1500 calories; do not adjust for exercise Increase cardio to at least 4 days per week preferably 5 for last at least 30 min Make sure starches are whole grain, high fiber when having Continue to follow the plate method Continue three meals and no snacks Include lean protein in each meal, save fruits and starches for last in the meal Continue mindful eating guidelines; finish eating comfortable, not full Nutrition Monitoring & Evaluation: weight loss Need for Follow up: 4-6 weeks PROGRESS: Interval History: Following as relates to class 3 obesity Body mass index is 45.1 kg/m . Note staible weight from last visit. Intake does not appear excessive ,has added exercise but less than recommended. had recent increase in thyroid medicatipn. Nutrition Intervention 10/14/21 1. Include breakfast, lunch and dinner ,no snacks 2. Include lean protein in each meal (cottage cheese or eggs at breakfast; tuna or chicken or fish at lunch and dinner) 3. Follow the Plate Method at lunch and dinner: Use a 9 plate - 1/2 plate vegetables-non starchy such as green beans, greens, broccoli, cauliflower, etc (1 serving of fruit optional outside of plate) - 1/4 plate lean protein-primarily chicken, turkey fish, lean red 1-2 x per week at most (size of palm) - 1/4 plate whole grain or starchy vegetable such as corn, peas, potatoes, beans (size of fist, 1 cup) 4. Continue mindful eating 5. Continue food records - try [employer] for tracking, aim for 1500 calories, do not adjust for exercise 6. Include at least 30 min cardio most days Actions to implement interventions: Treadmull 2-3 x per week No snacking Diet History: Breakfast - cereal/ 2%or eggs; water or coffee with creamer Snack - no Lunch - egg or yogurt with cheese; rice and beans Snack - no Dinner - rice and beans and meat (tuna or chicken, frozen veggies (green beans, carrots); water Snack - not usually Beverages - water, coffee, occ diet pop Alcohol - no Vitamins/Supplements - no Activity: Activities of Daily Living: varies Additional Activity: Lightly active (Light exercise: planned physical activity 1-3 days/week) Treadmill 3 days per week for 20-30 min Playing outside Anthropometrics: Height: Last 1 Encounter Ht Readings: Date: Ht: 11/18/2021 149.9 cm (4' 11 ) Current weight: Last 1 Encounter Wt Readings: Date: Wt: 11/18/2021 101.3 kg (223 lb 4.8 oz) Body mass index is 45.1 kg/m . Resting Metabolic Rate: 1649 Malnutrition Screening Significant unintentional weight loss? No Eating less than 75% of usual intake for more than 2 weeks? No Potential Signs of Inflammation: no identifiable sources Nutritional status: Education Materials Provided: None this visit READINESS TO LEARN Cognitive ability: Alert and oriented Motivation to learn: Interested Family support: Unable to assess - Family not present Instruction provided to: Patient Patient learns best by: Individual Instruction Factors affecting learning: None Physical limitations affecting learning: None Likelihood of Adherence: Moderate Referred/Supervised by: Lexus LINDER Billing Type: Re-assess/15 min 2 units SIGNATURE: Leslie Perez RD PATIENT NAME: Lakshmi Mcgee DATE: November 18, 2021 TIME: 2:33 PM documented in this encounterWayne Hospital08-20-2022 History of Present illness Narrative* Leonarda Blakely APRN.[facility] - 11/16/2021 12:24 PM EDT Images from the original note were not included. Subjective Rash Pertinent negatives include no fever. Nontoxic-appearing female presents urgent care chief complaint rash. Duration of symptoms 1 week. Associated symptoms pruritic erythematous rash. Patient states it does feel stinging/burning if she scratches it. Has been using OTC medications this has not helped. Denies any recent lifestyle changes. No recent antibiotic use. No known sick contacts. Has had eczema and this feels similar. Denies any new lotions, soaps, detergents or medications. Past medical history prescription medication use allergies reviewed. Denies chance of . Is not breast-feeding. Review of Systems Constitutional: Negative for chills and fever. Respiratory: Negative. Cardiovascular: Negative. Musculoskeletal: Negative for myalgias. Skin: Positive for itching and rash. BP 124/80 Pulse 104 Temp 36.9 C (98.5 F) Resp 18 Wt 102.1 kg (225 lb) SpO2 97% BMI 45.44 kg/m PAST MEDICAL HISTORY Diagnosis Date Depression Hypothyroidism, acquired 07/12/2021 Obesity, Class III, BMI 40-49.9 (morbid obesity) (HCC) 02/22/2021 Pes cavus 07/12/2021 PAST SURGICAL HISTORY Procedure Laterality Date CYST/MOLE REMOVAL ovary ALLERGIES Azithromycin and Megestrol MEDICATIONS thyroid (TISSUE COORDINATOR THYROID) 15 mg tablet^Take 1 tablet by mouth once daily. Take with 30 mg dose for totaldaily dose of 45 mg.^Disp: 30 tablet^Rfl: 5 TISSUE COORDINATOR THYROID 30 mg tablet^Take 30 mg by mouth once daily.^Disp: ^Rfl: ferrous sulfate 325 mg (65 mg iron) tablet^Take 1 tablet by mouth twice daily with meals.^Disp: 60 tablet^Rfl: 2 PNV no.95/ferrous fum/folic ac (PNV CMB#95-FERROUS FUMARATE-FA ORAL)^Take by mouth.^Disp: ^Rfl: norgestimate 0.25 mg-ethinyl estradiol 35 mcg (SPRINTEC, ORTHO-CYCLEN) 0.25-35 mg-mcg per tablet^Take 1 tablet by mouth once daily.^Disp: ^Rfl: meclizine (ANTIVERT) 25 mg tab^Take 1 tablet by mouth twice daily as needed (dizziness).^Disp: 30 tablet^Rfl: 0 Cholecalciferol, Vitamin D3, 1,000 unit cap^Take 2 capsules by mouth once daily.^Disp: ^Rfl: 3 sertraline (ZOLOFT) 100 mg tablet^^Disp: ^Rfl: predniSONE (DELTASONE) 10 mg tablet^Take 4 tabs daily for 3 days, then 2 tabs daily for 3 days, then 1 tab daily for 3 days with food.^Disp: 21 tablet^Rfl: 0 triamcinolone (KENALOG) 0.025 % cream^Apply 1 application to affected area twice daily.^Disp: 30 g^Rfl: 0 FAMILY HISTORY Problem Relation Age of Onset Cancer Maternal Grandmother Social History Tobacco Use Smoking status: Never Smokeless tobacco: Never Substance Use Topics Alcohol use: Never Drug use: Never Objective Physical Exam Vitals and nursing note reviewed. Constitutional: Appearance: She is obese. Cardiovascular: Rate and Rhythm: Normal rate. Pulmonary: Effort: Pulmonary effort is normal. Skin: General: Skin is warm and dry. Capillary Refill: Capillary refill takes less than 2 seconds. Findings: Erythema and rash present. Neurological: Mental Status: She is alert. ASSESSMENT/PLAN: 1. Rash - ICD9: 782.1, ICD10: R21 - appears to be allergic dermatitis - PREDNISONE 10 MG TABLET - TRIAMCINOLONE ACETONIDE 0.025 % TOPICAL CREAM - Follow-up with your PCP in 3-5 days if symptoms have not improved or sooner if symptoms worsen - Discussed red flags and need for immediate medical evaluation if any occur. - Discussed supportive care treatment - Discussed expected course of illness Leonarda Blakely APRN.CNP documented in this encounterWayne Hospital08-20-2022 Instructions* Patient Instructions* Leonarda Blakely APRN.CNP - 11/16/2021 12:24 PM EDT ASSESSMENT/PLAN: 1. Rash - ICD9: 782.1, ICD10: R21 - appears to be allergic dermatitis - PREDNISONE 10 MG TABLET - TRIAMCINOLONE ACETONIDE 0.025 % TOPICAL CREAM - Follow-up with your PCP in 3-5 days if symptoms have not improved or sooner if symptoms worsen - Discussed red flags and need for immediate medical evaluation if any occur. - Discussed supportive care treatment - Discussed expected course of illness Leonarda Blakely APRN.CNP NONSPECIFIC RASH: Our exam shows you have a rash which has no clear cause. Rashes can result from infections, allergies, or irritation of the skin by chemicals or other environmental factors. Rashes can also result from scratching or rubbing the skin too much to relieve itching. Further medical examination may be needed to identify the specific cause and proper treatment of your skin rash. You should treat your rash as recommended by your doctor. If you have itching, you should avoid scratching as much as possible, as this further damages the skin. Ask your doctor or pharmacist if you have any questions about what topical medicines may help relieve your symptoms. Call your doctor right away if your rash is not better in 2-3 days, if it worsens, or if there are signs of infection (increased pain, redness, drainage or pus). documented in this encounterWayne Hospital08-03-2022 Miscellaneous Notes* Telephone Encounter - Evelia Palma Ma - 10/30/2021 6:32 PM EDT Patient was notified and verbalized understanding Evelia Palma Ma * Telephone Encounter - Mary Hardin APRN.CNP - 10/30/2021 5:34 PM EDT I sent a script for 15 mg for her to take in addition to her 30 mg dose (total daily dose of 45 mg). Please recheck the thyroid labs in 6-8 weeks. The orders are in. Mary Hardin APRN.CNP * Telephone Encounter - Nena Gurrola LPN - 10/30/2021 3:36 PM EDT Patient notified of results, verbalizes understanding of instructions. Pt stated no infections, and has not missed any thyroid 30 mg med. But feeling fatique and has dry skin. Please ajust med. Nena Gurrola LPN * Telephone Encounter - Mary Hardin APRN.CNP - 10/30/2021 3:19 PM EDT Can please let patient know that I received her lab results. Her white count is elevated. The steroids that she was on can contribute to this. However, is she having any symptoms of infection (ie fevers, respiratory symptoms or urinary symptoms, etc)? I would like to have her repeat this later this week, if possible. The order is in. Her thyroid is just very minimally on the underactive side. Has she missed any doses? If not, and she is feeling okay, we can go ahead and just recheck in a couple of months. If she is having symptoms (fatigue, constipation, dry skin, etc), we can go ahead and increase the dose. Let me know how shewould like to proceed. Mary Hardin APRN.CNP documented in this encounterWayne Hospital08-01-2022 Instructions* Patient Instructions* Mary Hardin APRN.CNP - 10/28/2021 2:33 PM EDT 1. Get labwork. 2. Keep appt w/ cardiology, as planned. documented in this encounterWayne Hospital08-01-2022 History of Present illness Narrative* Mary Hardin APRN.CNP - 10/28/2021 2:10 PM EDT This is a 26 year old female who presents today with: Patient presents with: Recheck: 6 month follow up HISTORY OF PRESENT ILLNESS: Lakshmi Mcgee is a 26 year old female. Patient presents with: Recheck: 6 month follow up Pt presents today for follow-up. Palpitations. Refers continues at times. Event monitor had some isolated PVCs, couplet. She has an appt with cardiology in January. HYPOTHYROID: Patient is compliant with medications: Yes Patient has changes in energy: No Patient has changes in hair or skin: Yes - had a rash -- today is last dose of prednisone. Patient has temperature intolerance: No Patient has weight changes: No Rash Was in to urgent care on 10/23/21. Dx with contact dermatitis. Started prednisone -- symptoms better. PAST MEDICAL HISTORY: PAST MEDICAL HISTORY Diagnosis Date Depression Hypothyroidism, acquired 07/12/2021 Obesity, Class III, BMI 40-49.9 (morbid obesity) (HCC) 02/22/2021 Pes cavus 07/12/2021 PAST SURGICAL HISTORY Procedure Laterality Date CYST/MOLE REMOVAL ovary ALLERGIES Azithromycin and Megestrol MEDICATIONS Current Outpatient Medications Medication Sig PNV no.95/ferrous fum/folic ac (PNV CMB#95-FERROUS FUMARATE-FA ORAL) Take by mouth. norgestimate 0.25 mg-ethinyl estradiol 35 mcg (SPRINTEC, ORTHO-CYCLEN) 0.25-35 mg-mcg per tablet Take 1 tablet by mouth once daily. predniSONE (DELTASONE) 10 mg tablet Take 3 tabs daily for 2 days, then 2 tabs daily for 2 days, then 1 tab daily for 2 days with food. meclizine (ANTIVERT) 25 mg tab Take 1 tablet by mouth twice daily as needed (dizziness). Cholecalciferol, Vitamin D3, 1,000 unit cap Take 2 capsules by mouth once daily. sertraline (ZOLOFT) 100 mg tablet Current Facility-Administered Medications Medication Dose Route Frequency perflutren lipid microspheres 1.3 mL in NaCl (PF) 0.9% 10 mL injection (DEFINITY) INTRAVENOUS DIRECTED PRN sodium chloride 0.9 % (flush) 10 mL (BD POSIFLUSH) 10 mL INTRAVENOUS DIRECTED PRN FAMILY HISTORY Problem Relation Age of Onset Cancer Maternal Grandmother Social History Tobacco Use Smoking status: Never Smoker Smokeless tobacco: Never Used Substance Use Topics Alcohol use: Never Drug use: Never EXAM: BP 108/76 Pulse 90 Resp 18 Wt 101.2 kg (223 lb) SpO2 90% BMI 45.04 kg/m PHYSICAL EXAM: General Appearance: Well appearing, alert, in no acute distress, well-hydrated, well nourished.. Skin: Skin color, texture, turgor normal, no suspicious rashes or lesions. Head: Normocephalic, no masses, lesions, tenderness or abnormalities. Eyes: Anicteric sclera. Pupils are equally round and reactive to light. Extraocular movements are intact. . Lungs: Lungs clear to auscultation. No wheezing, rhonchi, rales.. Heart: RRR without murmur, gallop, or rubs. No ectopy. Neurologic: Gait normal. ASSESSMENT/PLAN: 1. Hypothyroidism, acquired - ICD9: 244.9, ICD10: E03.9 (primary diagnosis) Will check labs. Follow-up pending results. - TISSUE COORDINATOR THYROID 30 MG TABLET - TSH BLD - T4 FREE/FREE THYROX - T3 BLD 2. Iron deficiency anemia, unspecified iron deficiency anemia type - ICD9: 280.9, ICD10: D50.9 Recheck. - FERROUS SULFATE 325 MG (65 MG IRON) TABLET - CBC + DIFF - IRON + TIBC - FERRITIN BLD 3. Tachycardia - ICD9: 785.0, ICD10: R00.0 Continues. Has appt scheduled w/ cardiology. - BASIC METABOLIC PNL Discussed treatment plan and patient voices understanding. Patient's questions answered appropriately. Medications and potential side effects were discussed and patient voices understanding. Return to the office as scheduled or as needed for worsening/no improvement. Mary Hardin APRN.[facility] documented in this encounterWayne Hospital07-27-2022 Instructions* Patient Instructions* Xander Mendoza APRN.CNP - 10/23/2021 4:39 PM EDT NONSPECIFIC RASH: Our exam shows you have a rash which has no clear cause. Rashes can result from infections, allergies, or irritation of the skin by chemicals or other environmental factors. Rashes can also result from scratching or rubbing the skin too much to relieve itching. Further medical examination may be needed to identify the specific cause and proper treatment of your skin rash. You should treat your rash as recommended by your doctor. If you have itching, you should avoid scratching as much as possible, as this further damages the skin. Ask your doctor or pharmacist if you have any questions about what topical medicines may help relieve your symptoms. Call your doctor right away if your rash is not better in 2-3 days, if it worsens, or if there are signs of infection (increased pain, redness, drainage or pus). documented in this encounterWayne Hospital07-27-2022 History of Present illness Narrative* Xander Mendoza APRN.CNP - 10/23/2021 4:25 PM EDT Images from the original note were not included. Subjective HPI Nontoxic-appearing female presents urgent care chief complaint rash. Duration of symptoms 1 week. Associated symptoms pruritic erythematous rash. Patient states it does feel stinging/burning if she scratches it. Has been using OTC medications this has not helped. Denies any recent lifestyle changes. No recent antibiotic use. No known sick contacts. Has had eczema and this feels similar. Denies any fever body aches chills cough chest pain shortness of breath pleuritic pain hemoptysis nausea vomiting or change in bowel or bladder habits. Past medical history prescription medication use allergies reviewed. Denies chance of . Is not breast-feeding. .Patient presents with: Rash: across back x 1 week, itching and burning PAST MEDICAL HISTORY Diagnosis Date Depression Hypothyroidism, acquired 07/12/2021 Obesity, Class III, BMI 40-49.9 (morbid obesity) (HCC) 02/22/2021 Pes cavus 07/12/2021 PAST SURGICAL HISTORY Procedure Laterality Date CYST/MOLE REMOVAL ovary ALLERGIES Azithromycin and Megestrol MEDICATIONS PNV no.95/ferrous fum/folic ac (PNV CMB#95-FERROUS FUMARATE-FA ORAL) Take by mouth. Cholecalciferol, Vitamin D3, 1,000 unit cap Take 2 capsules by mouth once daily. sertraline (ZOLOFT) 100 mg tablet norgestimate 0.25 mg-ethinyl estradiol 35 mcg (SPRINTEC, ORTHO-CYCLEN) 0.25-35 mg-mcg per tablet Take 1 tablet by mouth once daily. meclizine (ANTIVERT) 25 mg tab Take 1 tablet by mouth twice daily as needed (dizziness). FAMILY HISTORY Problem Relation Age of Onset Cancer Maternal Grandmother Social History Tobacco Use Smoking status: Never Smoker Smokeless tobacco: Never Used Substance Use Topics Alcohol use: Never Drug use: Never BP 110/68 Pulse 114 Temp 37.2 C (99 F) Resp 18 Wt 101.6 kg (224 lb) SpO2 97% BMI 45.24 kg/m Hr 85 Review of Systems Constitutional: Negative for chills, fever and malaise/fatigue. HENT: Negative for congestion, ear discharge, ear pain, sinus pain and sore throat. Eyes: Negative for blurred vision, pain, discharge and redness. Respiratory: Negative for cough, hemoptysis, sputum production, shortness of breath, wheezing and stridor. Cardiovascular: Negative for chest pain. Gastrointestinal: Negative for abdominal pain, diarrhea, nausea and vomiting. Musculoskeletal: Negative for myalgias. Skin: Positive for itching and rash. Neurological: Negative for dizziness and headaches. Objective Physical Exam Constitutional: General: She is not in acute distress. Appearance: She is not diaphoretic. HENT: Head: Normocephalic. Mouth/Throat: Mouth: Mucous membranes are moist. Pharynx: Oropharynx is clear. No oropharyngeal exudate or posterior oropharyngeal erythema. Eyes: Conjunctiva/sclera: Conjunctivae normal. Pupils: Pupils are equal, round, and reactive to light. Cardiovascular: Rate and Rhythm: Normal rate and regular rhythm. Heart sounds: Normal heart sounds. Pulmonary: Effort: Pulmonary effort is normal. No tachypnea, accessory muscle usage or respiratory distress. Breath sounds: Normal breath sounds. No stridor. No wheezing, rhonchi or rales. Abdominal: Palpations: Abdomen is soft. Tenderness: There is no abdominal tenderness. Musculoskeletal: Cervical back: Normal range of motion and neck supple. No rigidity or tenderness. Lymphadenopathy: Cervical: No cervical adenopathy. Skin: General: Skin is warm and dry. Comments: Maculopapular erythematous base rash noted on highlighted areas. No mucosal membrane involvement. No palms of hand involvement. No desquamation of skin. Crosses midline. No evidence of bacterial infection. Neurological: Mental Status: She is alert and oriented to person, place, and time. ASSESSMENT/PLAN: 1. Rash - ICD9: 782.1, ICD10: R21 Patient diagnosed with rash. We will treat as contact dermatitis. Patient was educated on supportive therapies. Patient will follow up with primary care provider as needed. Patient was instructed to immediately proceed to emergency room for any new, worsening, or symptoms lasting longer than anticipated. The patient's clinical presentation is otherwise unremarkable at this time. Based on exam andclinical finding, the patient is stable for discharge. Plan of care was discussed with patient. Patient verbalizes understanding and agrees to plan of care. This note was generated using [employer] software. It may contain errors in wording, punctuation, or spelling. Xander Mendoza APRN.CNP documented in this encounterWayne Hospital06-26-2022 Miscellaneous Notes* Telephone Encounter - Kathy Harris - 09/22/2021 10:33 AM EDT Patient is scheduled in Nov with Lou. Kathy Harris * Telephone Encounter - Vladimir Pope LPN - 09/16/2021 1:08 PM EDT TC to pt, notified of results/provider response. She verbalized understanding. Schedulers please assist pt with scheduling appt with Cardiology. Vladimir Pope LPN * Telephone Encounter - Mary Hardin APRN.CNP - 09/16/2021 12:23 PM EDT Can please let patient know that I received her echo results. Overall, everything looks okay. The one chamber in the heart is reportedly small, however, this could be her normal. Because of the faster heart rate, lets plan on going ahead and getting her set up with cardiology for further evaluation. The referral is placed. Please help schedule. Mary Hardin APRN.CNP documented in this encounterWayne Hospital06-06-2022 Nurse Note* Vladimir Pope LPN - 09/02/2021 3:46 PM EDT EVENT MONITOR DISPOSABLE PATCH INSTRUCTIONS Patient Name: Lakshmi Mcgee [facility] Number: [id number] Skin prepped and cleansed with alcohol Patch secured to prepped area Monitor Activated Serial #: [id number] Patient Instructed: 1.) Prescribed order timeframe 2.) Bathing guidelines 3.) Usage of event button and diary documentation 4.) Return of monitor at the end of prescribed order 5.) Call with problems [phone] or [phone] ext. [phone] Patient expresses a good understanding of instructions Vladimir Pope LPN documented in this encounterWayne Hospital06-06-2022 Instructions* Patient Instructions* Leslie Perez RD - 09/02/2021 2:50 PM EDT Aim for at least 30 min exercise most day Choose a high fiber and low sugar cereal, choose ideally 1% milk All meals and snacks at the dinner table; minimize distractions, no TV while eating. Make meals last at least 20 min, chew each bite of food 20 x per bite.Portion out all foods, never eat out of container. Become more mindful of meal: Enjoy flavors, textures etc. Use hunger/fullness scale. Follow the Plate Method at lunch and dinner: Use a 9 plate - 1/2 plate vegetables-non starchy such as green beans, greens, broccoli, cauliflower, etc (1 serving of fruit optional outside of plate) - 1/4 plate lean protein-primarily chicken, turkey fish, lean red 1-2 x per week at most (size of palm) - 1/4 plate whole grain or starchy vegetable such as corn, peas, potatoes, beans (size of fist, 1 cup) No snack unless truly hungry, If snack needed keep to 100-150 calories of protein and fiber If able no evening snack but if needed keep small and healthy All beverages Calorie free and sugar free . Keep a food journal or food log documented in this encounterWayne Hospital06-06-2022 History of Present illness Narrative* Leslie Perez RD - 09/02/2021 2:31 PM EDT Nutrition Therapy Initial Assessment Nutrition Diagnosis: Overweight/obesity, related to, excess energy intake and physical inactivity, as evidenced by BMI above normative standard for age and gender. RECOMMENDED MALNUTRITION DIAGNOSIS: NO MALNUTRITION IDENTIFIED NUTRITION CARE PLAN Nutrition Intervention 09/02/2021: modify type and amount of food or beverage Aim for at least 30 min exercise most day Choose a high fiber and low sugar cereal, choose ideally 1% milk All meals and snacks at the dinner table; minimize distractions, no TV while eating. Make meals last at least 20 min, chew each bite of food 20 x per bite.Portion out all foods, never eat out of container. Become more mindful of meal: Enjoy flavors, textures etc. Use hunger/fullness scale. Follow the Plate Method at lunch and dinner: Use a 9 plate - 1/2 plate vegetables-non starchy such as green beans, greens, broccoli, cauliflower, etc (1 serving of fruit optional outside of plate) - 1/4 plate lean protein-primarily chicken, turkey fish, lean red 1-2 x per week at most (size of palm) - 1/4 plate whole grain or starchy vegetable such as corn, peas, potatoes, beans (size of fist, 1 cup) No snack unless truly hungry, If snack needed keep to 100-150 calories of protein and fiber If able no evening snack but if needed keep small and healthy All beverages Calorie free and sugar free . Keep a food journal or food log Nutrition Monitoring & Evaluation: 1-2 pound weightloss per week Need for Follow up: 4-6 weeks Patient presents for initial MNT as relates to class 3 obesity Body mass index is 45.75 kg/m . STates was thin as child and could not gain, did start gaining after of child. Goal weight 175, lowest adult weight 78 lb age 20-21 related to depression. Intake noted for typically three meals and three snacks. No regular exercise but active with one year old. Patient's symptoms are: Weight Concerns: weight gain and failure to lose weight Diet History: Breakfast - cereal (cheerios/yael charms/fruit loops)/whole or 2% Snack - usually, couple crackers or chips, occ cookie Lunch - mac and cheese with daughter Or canned soups or chili; water or coffee Snack - crackers, chips, cookie Dinner - burgers or noodles or occ pizza, occ rice and chicken; water Snack - if hungry, crackers, Beverages - water and coffee, occ pop Alcohol- no Vitamins/Supplements - D prescribed Activity: Activities of Daily Living: Active 75% of the day. 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 Resting Metabolic Rate: 1669 Malnutrition Screening Significant unintentional weight loss? No Eating less than 75% of usual intake for more than 2 weeks? No Potential Signs of Inflammation: no identifiable sources Education Materials Provided: Healthy Lunch/Dinner Plate READINESS TO LEARN Cognitive ability: Alert and oriented Motivation to learn: Interested Family support: Unable to assess - Family not present Instruction provided to: Patient Patient learns best by: Individual Instruction Factors affecting learning: None Physical limitations affecting learning: None Referred/Supervised by: Bessy/Ernesto LINDER Billing Type: Initial Assess/15 min 2 units SIGNATURE: Leslie Perez RD PATIENT NAME: Lakshmi Mcgee DATE: September 02, 2021 TIME: 2:33 PM documented in this encounterWayne Hospital06-03-2022 Instructions* Patient Instructions* Mary Hardin APRN.CNP - 08/30/2021 10:05 AM EDT 1. Schedule echocardiogram. 2. Check w/ insurance re: [employer] coverage. 3. To ER with any sustained palpitations or other symptoms (chest pain/shortness of breath, dizziness, etc). documented in this encounterWayne Hospital06-03-2022 History of Present illness Narrative* Mary Hardin APRN.WIRE GALVANIZER - 08/30/2021 9:56 AM EDT This is a 25 year old female who presents today with: Patient presents with: Recheck: heart rate and swollen ankles HISTORY OF PRESENT ILLNESS: Lakshmi Mcgee is a 25 year old female. Patient presents with: Recheck: heart rate and swollen ankles Pt presents today d/t heart rate. She has been checking her heart rate. Refers some days normal in the 90's. Some days high in the low 100's. Has noticed some skipped beats. No pain/dizziness. Will feel kind of weak when it happens. A little SOB. Has tried to slow down with coffee to see if that helps. 1 iced coffee a day (8-16 ounces). PAST MEDICAL HISTORY: PAST MEDICAL HISTORY Diagnosis Date Depression Hypothyroidism, acquired 07/12/2021 Obesity, Class III, BMI 40-49.9 (morbid obesity) (HCC) 02/22/2021 Pes cavus 07/12/2021 PAST SURGICAL HISTORY Procedure Laterality Date CYST/MOLE REMOVAL ovary ALLERGIES Azithromycin and Megestrol MEDICATIONS Current Outpatient Medications Medication Sig Cholecalciferol, Vitamin D3, 1,000 unit cap Take 2 capsules by mouth once daily. sertraline (ZOLOFT) 100 mg tablet meclizine (ANTIVERT) 25 mg tab Take 1 tablet by mouth twice daily as needed (dizziness). No current facility-administered medications for this visit. FAMILY HISTORY Problem Relation Age of Onset Cancer Maternal Grandmother Social History Tobacco Use Smoking status: Never Smoker Smokeless tobacco: Never Used Substance Use Topics Alcohol use: Never Drug use: Never EXAM: BP 94/74 Pulse 104 Resp 18 SpO2 98% PHYSICAL EXAM: General Appearance: Well appearing, alert, in no acute distress, well-hydrated, well nourished.. Skin: Skin color, texture, turgor normal, no suspicious rashes or lesions. Head: Normocephalic, no masses, lesions, tenderness or abnormalities. Eyes: Anicteric sclera. Pupils are equally round and reactive to light. Extraocular movements are intact. . Lungs: Lungs clear to auscultation. No wheezing, rhonchi, rales.. Heart: RRR without murmur, gallop, or rubs. No ectopy. Extremities: No deformities, edema, skin discoloration, clubbing or cyanosis. Good capillary refill. . Neurologic: Gait normal. ASSESSMENT/PLAN: 1. Tachycardia - ICD9: 785.0, ICD10: R00.0 Pt with HR that has been tachycardic. She is now noticing some palpitations. She has had several visits d/t leg swelling. Will go ahead and get echo. Discussed Z[employer] and she will check insurance coverage and return for application. - ECG COMPLETE - SR without ectopy or ST changes. - ECHO - PERFLUTREN LIPID MICROSPHERES 1.1 MG/ML INJECTION IN NS 10 ML - SODIUM CHLORIDE 0.9 % (FLUSH) INJECTION SYRINGE Discussed treatment plan and patient voices understanding. Patient's questions answered appropriately. Medications and potential side effects were discussed and patient voices understanding. Return to the office as scheduled or as needed for worsening/no improvement. Mary Hardin APRN.ALLISON documented in this encounterWayne Hospital04-15-2022 Instructions* Patient Instructions* Power Escamilla APRN.CNP, DNP - 07/12/2021 3:26 PM EDT Follow up with Mary Taylor in 6-8 weeks Check electrolytes today with lab Consult to Dietitian and Podiatry Trial of compression stockings: 8 - 15 mmHg pressure knee-high - low compression Monitor heart rate. Return to the clinic or seek care at Express[facility]Urgent [facility] for any worsening signs or symptoms: such as fevers, chills, worsening pain or swelling. For severe symptoms seek care at the closest ER. Planof care, medicaiton side effects and management reviewed with patient. Healthy Habits: Recommend regular physical activity, nutrition and healthy eating habits. Consume a variety of foods every day focusing on fruits, vegetables and lean meats). Eat foods low in fat, saturated fat and cholesterol. Eat a limited amount of salt and sodium. Drink adequate amounts of water and limit sugary drinks. Exercise portion control in meal selection. Establish a mindset of a wellness approach to health. Thank you for allowing me to provide your care today. I look forward to seeing you again and maintaining your health. Power Escamilla APRN.ADY COOPER documented in this encounterWayne Hospital04-15-2022 History of Present illness Narrative* Power Escamilla APRN.ADY COOPER - 07/12/2021 2:40 PM EDT Chief Complaint Patient presents with: swelling in hands and ankles: X 2 weeks HPI Lakshmi Mcgee is a 25 year old female who presents here today for swelling of LE.. This is an established patient of Dr. Doherty. Denies any recent hospitalizations. Past medical history: Morbid obesity, depression and hypothyroidism. Thyroid: Takes Zoloft 100 mg and pork thyroid. Last thyroid levels were checked in Apr 2021 by her primary care provider. Lower extremity swelling: Complains of intermittent lower extremity swelling for the past several months. Minimal swelling today. Occasionally hands swell. 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 On her feet most days. Was seen by Mary Arriaga another nurse practitioner here at the clinic for same symptoms. Instructed to increase water intake and limit sodium intake. This is helped mildly. Continues to have intermittent swelling. Swelling worse at the end of the day. No swelling in the morning time. Gradually occurs throughout the day. Will elevate feet at the end of the day. Provides mild relief. Gradual weight gain over the past several months. Denies leg pain. Occasionally feet hurt. No recent change in medication. Past medical history, appointments, medications, allergies reviewed 07/12/2021 Previous Medical History PAST MEDICAL HISTORY Diagnosis Date Depression Hypothyroidism, acquired 07/12/2021 Obesity, Class III, BMI 40-49.9 (morbid obesity) ([facility]) 02/22/2021 Pes cavus 07/12/2021 Previous Surgical History PAST SURGICAL HISTORY Procedure Laterality Date CYST/MOLE REMOVAL ovary Family History FAMILY HISTORY Problem Relation Age of Onset Cancer Maternal Grandmother Patient Allergies ALLERGIES Allergen Reactions Azithromycin GI Upset Megestrol Unknown Current Medications Current Outpatient Medications on File Prior to Visit Medication Sig Cholecalciferol, Vitamin D3, 1,000 unit cap Take 2 capsules by mouth once daily. sertraline (ZOLOFT) 100 mg tablet phenazopyridine (PYRIDIUM, GERIDIUM) 200 mg tablet fluconazole (DIFLUCAN) 150 mg tablet sulfamethoxazole-trimethoprim (BACTRIM DS,SEPTRA DS) 800-160 mg per tablet betamethasone dipropionate (DIPROSONE) 0.05 % cream Apply 1 application to affected area twice daily. cetirizine (ZYRTEC) 10 mg tablet Take 1 tablet by mouth once daily. doxycycline monohydrate (MONODOX) 100 mg capsule Take 1 capsule by mouth twice daily. With food No current facility-administered medications on file prior to visit. Social History Social History Tobacco Use Smoking status: Never Smoker Smokeless tobacco: Never Used Substance Use Topics Alcohol use: Never Drug use: Never Review of Symptoms GENERAL: No weight loss, malaise or fevers. No fatigue NECK: Negative for lumps or swollen nodes RESPIRATORY: Negative for dyspnea or shortness of breath CARDIOVASCULAR: Negative for chest pain MUSCULOSKELETAL: Negative for generalized joint pain or weakness SKIN: Negative for rash EXAM: BP 110/74 Pulse 109 Resp 16 Wt 102.1 kg (225 lb) SpO2 100% BMI 45.44 kg/m General Appearance: Well appearing, alert, in no acute distress, well-hydrated, well nourished. Morbidly obese Skin: Skin color, texture, turgor normal Head: Normocephalic, no masses Eyes: Anicteric sclera. Neck: Supple, no mass or lumps. Lymph Nodes: No cervical, supraclavicular, pre/post-auricular, or submandibular lymphadenopathy Lungs: Lungs clear to auscultation. No wheezing, rhonchi, rales. Heart: RRR without murmur, gallop, or rubs. No ectopy. Extremities: No deformities, edema, skin discoloration. No UE or LE swelling. Pulses: 2+ at radial. Psych: Attitude - cooperative, easily engaged in conversation Appearance - normal, hygiene and grooming appropriate Affect - euthymic, normal mood Mental status: Alert, attentive. Speech is clear and fluent with good repetition, comprehension Coordination: There are no abnormal or extraneous movements. Gait/Stance: Posture is normal. Gait is steady with normal steps Health Maintenance List COVID-19 VACCINE(1) Never done DEPRESSION SCREENING Never done HEPATITIS C SCREENING Never done HIV SCREENING Never done DTAP,TDAP,TD(1 - Tdap) Never done PAP TESTING Never done INFLUENZA(1) Never done MENINGOCOCCAL CONJUGATE Aged Out Data reviewed Last 5 Encounter BP Readings: Date: BP: 07/12/2021 110/74 06/22/2021 108/70 06/12/2021 102/84 04/30/2021 136/86 03/15/2021 94/70 BMI Readings from Last 5 Encounters: 07/12/21 : 45.44 kg/m 06/22/21 : 44.52 kg/m 04/30/21 : 44.43 kg/m 03/15/21 : 43.42 kg/m 02/22/21 : 43.42 kg/m Last 5 Encounter Wt Readings: Date: Wt: 07/12/2021 102.1 kg (225 lb) 06/22/2021 100 kg (220 lb 6.4 oz) 04/30/2021 99.8 kg (220 lb) 03/15/2021 97.5 kg (215 lb) 02/22/2021 97.5 kg (215 lb) Vitals PULSE 11/18/2018 12/16/2018 02/22/2021 88 03/15/2021 101 04/30/2021 80 06/12/2021 100 06/22/2021 100 07/12/2021 109 Component Latest Ref Rng & Units 04/30/2021 Glucose 74 - 99 mg/dL 77 BUN 7 - 21 mg/dL 8 Creatinine 0.58 - 0.96 mg/dL 0.73 Sodium 136 - 144 mmol/L 139 Potassium 3.7 - 5.1 mmol/L 4.0 Chloride 97 - 105 mmol/L 103 CO2 22 - 30 mmol/L 25 Anion Gap 9 - 18 mmol/L 11 Calcium 8.5 - 10.2 mg/dL 9.6 eGFR- >60 eGFR-All Other Races . >60 Magnesium 1.7 - 2.3 mg/dL 2.3 TSH 0.270 - 4.200 uU/mL 3.550 Medication and allergy list reviewed, reconciled and updated 07/12/2021 ASSESSMENT/PLAN: 1. Localized swelling of both lower legs - ICD9: 729.81, ICD10: R22.43 (primary diagnosis) MDM: Unremarkable exam today. I reviewed previous lab work and heart rates with the patient. I did not appreciate significant swelling at all today during the exam. No swelling of the upper extremities. No impressive swelling of the lower extremities. No pitting edema identified. Her morbid obesitysignificantly contributes to her lower extremity swelling. Additionally her pes cavus also contributes to her lower extremity swelling. Wearing boots today. Reviewed comfortable and well fitting footwear to limit swelling. No varicosities identified during today's exam. Discussed low-sodium diet with adequate water intake. Limit time that she is on her feet and standing. Take frequent breaks. Elevate feet in the evening time. Ice as needed to keep swelling down. Consider compression stockings low compression. Plan: Check electrolytes today with lab Consult to Dietitian and Podiatry Trial of compression stockings: 8 - 15 mmHg pressure knee-high - low compression Monitor heart rate. Limit sodium intake Frequent breaks and rest. Elevate feet. Ice as needed. Follow up with Mary Taylor in 6-8 weeks - COMP METABOLIC PANEL - CONSULT TO PODIATRY 2. Pes cavus - ICD9: 736.73, ICD10: Q66.70 Severe pes cavus. Recommend further evaluation of feet by podiatry. Recommend comfortable footwear with adequate arch support. Max cushion shoes given likely a high impact heel strike. - CONSULT TO PODIATRY 3. Increased heart rate - ICD9: 785.0, ICD10: R00.0 Check CMP Continue to monitor. Keep a log at home. Consider rechecking thyroid studies and trial of beta-alonso - COMP METABOLIC PANEL 4. Obesity, Class III, BMI 40-49.9 (morbid obesity) (HCC) - ICD9: 278.01, ICD10: E66.01 Chronic and stable weight Recommend regular physical activity, nutrition and healthy eating habits. Consume a variety of foods every day focusing on fruits, vegetables and lean meats). Eat foods low in fat, saturated fat and cholesterol. Eat a limited amount of salt and sodium. Drink adequate amounts of water and limit sugary drinks. Exercise portion control in meal selection. Establish a mindset of a wellness approach to health. - CONSULT TO NUTRITION THERAPY 5. Hypothyroidism, acquired - ICD9: 244.9, ICD10: E03.9 Clinically stable. Last TSH WNL. Continue to monitor Power Escamilla APRN.WIRE GALVANIZER, DNP This note was completed with [employer] dictation software. Note was reviewed for accuracy. There may be minor misspellings or grammar miscues with [employer] Dictation. I spent a total of 32 minutes on the date of the service which included preparing to see the patient, [id number] patient care, completing clinical documentation, performing a medically appropriate examination, counseling and educating the patient/family/caregiver and ordering medications, tests, or procedures. [place] [phone] [place] [phone] This note was copied from previous note and exam dated 02/22/21. Author is Power Escamilla APRN.ADY COOPER note reviewed and changes have been made or updates noted in the copy & paste portion of an encounter. documented in this encounterWayne Hospital03-26-2022 History of Present illness Narrative* Dank Feng APRN.ALLISON - 06/22/2021 10:23 AM EDT Subjective HPI HPI Lakshmi Mcgee is a 25 year old female who presents today for CC of st, cough, fever, vomiting.This started 5 days ago. Has tried otc medication for relief. Symptoms are worsened by nothing. Risk factors sick exposures at home. Denies possibility of being . .Patient presents with: Sore Throat: with prior vomiting and fever, cough x5 days PAST MEDICAL HISTORY Diagnosis Date Depression PAST SURGICAL HISTORY Procedure Laterality Date CYST/MOLE REMOVAL ovary ALLERGIES Azithromycin and Megestrol MEDICATIONS ferrous sulfate 325 mg (65 mg iron) tablet Take 1 tablet by mouth twice daily with meals. meclizine (ANTIVERT) 25 mg tab Take 1 tablet by mouth twice daily as needed (dizziness). Cholecalciferol, Vitamin D3, 1,000 unit cap Take 2 capsules by mouth once daily. sertraline (ZOLOFT) 100 mg tablet FAMILY HISTORY Problem Relation Age of Onset Cancer Maternal Grandmother Social History Tobacco Use Smoking status: Never Smoker Smokeless tobacco: Never Used Substance Use Topics Alcohol use: Never Drug use: Never Review of Systems Constitutional: Positive for chills, fever and malaise/fatigue. HENT: Positive for congestion, ear pain and sore throat. Negative for ear discharge, nosebleeds andsinus pain. Respiratory: Positive for cough. Negative for shortness of breath and wheezing. Cardiovascular: Negative for chest pain. Musculoskeletal: Negative for neck pain. Skin: Negative for rash. Neurological: Positive for headaches. Negative for dizziness. Objective Blood pressure 108/70, pulse 100, temperature 36.7 C (98 F), resp. rate 22, weight 100 kg (220 lb 6.4 oz), SpO2 98 %. Physical Exam Constitutional: General: She is not in acute distress. Appearance: She is not toxic-appearing or diaphoretic. HENT: Head: Normocephalic and atraumatic. Right Ear: Hearing, tympanic membrane, ear canal and external ear normal. Left Ear: Hearing, tympanic membrane, ear canal and external ear normal. Nose: Nose normal. Mouth/Throat: Pharynx: Uvula midline. No pharyngeal swelling, oropharyngeal exudate, posterior oropharyngeal erythema or uvula swelling. Eyes: General: Lids are normal. No scleral icterus. Right eye: No discharge. Left eye: No discharge. Conjunctiva/sclera: Conjunctivae normal. Pupils: Pupils are equal, round, and reactive to light. Neck: Trachea: Trachea normal. Cardiovascular: Rate and Rhythm: Normal rate and regular rhythm. Heart sounds: Normal heart sounds. Pulmonary: Effort: Pulmonary effort is normal. Breath sounds: Normal breath sounds. Musculoskeletal: Cervical back: Normal range of motion and neck supple. Lymphadenopathy: Cervical: No cervical adenopathy. Right cervical: No superficial cervical adenopathy. Left cervical: No superficial cervical adenopathy. Skin: Findings: No rash. Neurological: Mental Status: She is alert and oriented to person, place, and time. ASSESSMENT/PLAN: 1. URI, acute - ICD9: 465.9, ICD10: J06.9 (primary diagnosis) - Discussed viral etiology and rationale for treatment. - Rapid strep negative in office today - Symptomatic treatment with prn analgesia - Supportive care with fluids and rest - Follow up in 3-5 days if symptoms persist or sooner if worsening of symptoms -declines flu/covid testing. 2. Sore throat - ICD9: 462, ICD10: J02.9 - suspect viral - Alere Strep Test neg, no culture pending - Discussed supportive care treatment with fluids, rest and analgesia. - The patient should follow up in 3-5 days if symptoms persist or worsen - Call back if drooling, increased temperature, symptoms of dehydration and/or still sick in one week Steroid for severity of sore throat. - ALERE STREP A TEST (AG) - PREDNISONE 20 MG TABLET Agrees to plan Dank Feng APRN.CNP documented in this encounterWayne Hospital02-07-2022 History of Present illness Narrative* Esvin Correa MD - 05/06/2021 11:09 AM EST Images from the original note were not included. RHEUMATOLOGY NEW PATIENT VISIT Patients name: Lakshmi Mcgee : 1995 Today's date: 05/06/2021 Reason for visit: Referred by ZORAIDA Escamilla for elevated ESR/CRP Disease summary: Status: Serology: +ve -ve Radiology: Current Meds: Pain control: Prior Meds: HPC: This is a 25 y.o. female with medical history of obesity and hypothyroidism who was referred by her nurse practitioner for elevated ESR/CRP. Patient's complaints today: Weight gain Dizziness Concerns about her blood counts Tiredness Not in the mood for anything Leg cramps Patient reports significant weight gain in the last year, when her daughter was born she weighed approximately 125 pounds and now she weighs over 221 pounds. She is not very active reports eating same food she feeds her 1-year-old daughter which consists of significant carbohydrates. Patient does not report any significant joint pain. She denies any significant redness swelling of her joints. No issues with ADLs. Denies dry eyes/dry mouth. Denies pain in her musculature. Concerned about her white cell count. Borderline on last blood draw. Patient had leukocytosis with mild neutrophilia. She did not report having infection or any steroids at the time. Her counts have been stable. No B symptoms. No infections. Prior Rheum appts: NIL Interim: I have reviewed the patient's medical history in detail and updated the computerized patient record. 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 She does not smoke and does not drink. No family history on file. Allergies Allergen Reactions Azithromycin GI Intolerance Megestrol Unknown No outpatient medications have been marked as taking for the 05/06/21 encounter (Office Visit) with Esvin Correa MD. Review of Systems: General Constitutional: Denied fevers, chills, anorexia, weight loss, or night sweats Eyes: denied blurry vision, no dry eyes, no RP ENT: denied nasal drainage, sinus pressure, nasal ulcers Mouth: denied oral ulcers, dry mouth Lymphatics: no new adenopathy in cervical, supraclavicular, axillary, inguinal regions Respiratory: no cough, SOB CV: denied palpitations, chest pain/pressure, PND, orthopnea. GI: denied abd pain, n/v/d, constipation, melena. : denied dysuria, urgency, frequency or hematuria. Skin: no rashes or lesions Musculoskeletal: as per HPI Hematologic/lmmunologic: no adenopathy, bleeding, easy bruisiality or recurrent infection. Neurology: Denied new headaches, speech/balance/coordination problems. Denied new focal numbness orweakness of extremities Psych: denied anxiety, depression or mood swings A 10 point review of systems was completed. Physical Exam: BP 117/79 Pulse (!) 109 Wt 100.2 kg (221 lb) Gen: NAD, resting comfortably,Alert, cooperative, no distress, appears stated age HEENT: NCAT, no temporal wasting, EOMI, perrl, anicteric sclerae, mmm, no op lesions Neck: supple, no thyromegaly or LAD, no bruits Lymphatics: no cervical, axillary, or inguinal adenopathy Chest: Good a/e b/l, no added sounds, no respiratory distress CV: RRR, no m/r/g, normal S1, S2 Abd: soft, nontender, nondistended, +BS, no hepatosplenomegaly Ext: no clubbing, cyanosis or edema MSK: No synovitis of the MCPs or PIPs. Crepitus of the knees no effusion or warmth. Skin: no rashes or lesions Neuro: no focal deficits, moves all four extremities Psych: Mood and affect appropriate DATA: I have reviewed lab work and imaging. Labs:reviewed. Imaging: reviewed. Health Maintenance Due Topic Date Due Pap Smear Never done Wellness Visit Never done COVID-19 Vaccine (1) Never done Depression Screening (PHQ-2/9) Never done HIV Screening Never done Hepatitis C Screening Never done Tetanus: Every 10yrs 07/25/2017 Sequential Influenza Vaccine (1) Never done Assessment & Plan Elevated ESR/CRP/WCC with neut % 71.1 in a patient with BMI 44.43 kg/m . No c/o inflammatory joint pain. Non-specific c/o low motivation, dizzy, tired, low mood, weight gain. Blood parameters in setting of obesity at this time appears to be normal variant and likely 2/2 to obesity. Also advised hershe may need serial evaluation to establish the absence of underlying pathology. Also if this continues to be an issue she should follow-up with a disability counselor. The patient indicates understanding of these issues and agrees with the plan. Return to clinic PRN Esvin Correa MD Credit Risk Manager Manager Battery Note: To expedite correspondence this note was generated by [employer] voice recognition software. Somegrammatical or spelling errors may occur using the system. [facility] Diagnosis Elevated sed rate- Primary Elevated sedimentation rate CRP elevated Elevated C-reactive protein (CRP) Leukocytosis, unspecified type Class 3 severe obesity due to excess calories without serious comorbidity with body mass index (BMI) of 40.0 to 44.9 in adult ([facility]) documented in this encounter [facility] note* Diagnosis URI, acute- Primary Acute upper respiratory infections of unspecified site Sore throat Acute pharyngitis documented in this encounter [facility] note* Diagnosis Localized swelling of both lower legs- Primary Pes cavus Talipes cavus Increased heart rate Tachycardia, unspecified Obesity, Class III, BMI 40-49.9 (morbid obesity) ([facility]) Morbid obesity Hypothyroidism, acquired Unspecified hypothyroidism [facility] Diagnosis Tachycardia- Primary Tachycardia, unspecified documented in this encounter [facility] note* Diagnosis Dietary counseling- Primary Dietary surveillance and counseling Obesity, Class III, BMI 40-49.9 (morbid obesity) ([facility]) Morbid obesity documented in this encounter [facility] note* Diagnosis Tachycardia- Primary Tachycardia, unspecified documented in this encounter [facility] note* Diagnosis Tachycardia- Primary Tachycardia, unspecified documented in this encounter [facility] note* Diagnosis Rash- Primary Rash and other nonspecific skin eruption documented in this encounter [facility] note* Diagnosis Hypothyroidism, acquired- Primary Unspecified hypothyroidism Iron deficiency anemia, unspecified iron deficiency anemia type Tachycardia Tachycardia, unspecified documented in this encounter [facility] note* Diagnosis Leukocytosis, unspecified type- Primary Hypothyroidism, acquired Unspecified hypothyroidism documented in this encounter [facility] note* Diagnosis Rash- Primary Rash and other nonspecific skin eruption documented in this encounter [facility] note* Diagnosis Obesity, Class III, BMI 40-49.9 (morbid obesity) (HCC)- Primary Morbid obesity Dietary counseling Dietary surveillance and counseling documented in this encounter [facility] note* Diagnosis Chest pain, unspecified type- Primary documented in this encounter [facility] note* Diagnosis Elevated sed rate- Primary Elevated sedimentation rate Leukocytosis, unspecified type documented in this encounter [facility] note* Diagnosis Tachycardia- Primary Tachycardia, unspecified Elevated sed rate Elevated sedimentation rate Hypothyroidism, acquired Unspecified hypothyroidism Chest wall pain Painful respiration Palpitations documented in this encounter [facility] note* Diagnosis Chest wall pain- Primary Painful respiration documented in this encounter [facility] note* Diagnosis OPENED IN ERROR- Primary To allow closing an encounter opened in error (used in SmartSet) documented in this encounter [facility] note* Diagnosis Chest wall pain- Primary Painful respiration documented in this encounter [facility] note* Diagnosis Chest wall pain- Primary Painful respiration documented in this encounter [facility] note* Diagnosis Tachycardia- Primary Tachycardia, unspecified Encounter for screening for cardiovascular disorders Screening for other and unspecified cardiovascular conditions SAHU (dyspnea on exertion) Other dyspnea and respiratory abnormality Chest tightness Other chest pain documented in this encounter [facility] note* Diagnosis Hypothyroidism, acquired- Primary Unspecified hypothyroidism Obesity, Class III, BMI 40-49.9 (morbid obesity) (HCC) Morbid obesity Mild episode of recurrent major depressive disorder (HCC) Neurodermatitis Lichenification and lichen simplex chronicus Prurigo nodularis Lichenification and lichen simplex chronicus Tachycardia, unspecified Somatic dysfunction of rib documented in this encounter [facility] note* Diagnosis Tachycardia, unspecified- Primary Hypothyroidism, acquired Unspecified hypothyroidism Edema, unspecified type SOB (shortness of breath) Shortness of breath Elevated sed rate Elevated sedimentation rate Near syncope Syncope and collapse Joint swelling Effusion of joint, site unspecified documented in this encounter [facility] note* Diagnosis Abnormal x-ray- Primary Other nonspecific (abnormal) findings on radiological and other examinations of body structure [facility] Diagnosis Finger swelling- Primary Swelling of limb Swelling of both hands Elevated sed rate Elevated sedimentation rate [facility] Diagnosis URI, acute- Primary Acute upper respiratory infections of unspecified site Acute otitis media, right Unspecified otitis media [facility] Diagnosis Screening for ischemic heart disease- Primary [facility] Diagnosis Family history of hypertrophic cardiomyopathy- Primary Family history of other cardiovascular diseases Family history of genetic disorder Family history of other condition [facility] Diagnosis Tachycardia, unspecified- Primary Swelling of both hands Elevated sed rate Elevated sedimentation rate URI, acute Acute upper respiratory infections of unspecified site [facility] Diagnosis Abnormal x-ray- Primary Other nonspecific (abnormal) findings on radiological and other examinations of body structure [facility] Diagnosis Pain in joint, multiple sites- Primary Finger swelling Swelling of limb Swelling of both hands Elevated sed rate Elevated sedimentation rate Anasarca Edema Abnormal CXR Other nonspecific abnormal finding of lung field Tachycardia Tachycardia, unspecified Shortness of breath Malaise and fatigue Other malaise and fatigue Acrocyanosis (HCC) Other peripheral vascular disease [facility] Diagnosis Finger swelling Swelling of limb Swelling of both hands Elevated sed rate Elevated sedimentation rate Pain in joint, multiple sites Anasarca Edema Abnormal CXR Other nonspecific abnormal finding of lung field Tachycardia Tachycardia, unspecified Shortness of breath Malaise and fatigue Other malaise and fatigue Acrocyanosis (HCC) Other peripheral vascular disease [facility] Diagnosis Secondary lymphedema- Primary Other lymphedema Finger swelling Swelling of limb Swelling of both hands Pain in joint, multiple sites Anasarca Edema Leg swelling Swelling of limb Morbid obesity with BMI of 40.0-44.9, adult (HCC) Morbid obesity [facility] Diagnosis Abnormal finding on imaging- Primary Other nonspecific (abnormal) findings on radiological and other examinations of body structure Ground glass opacity present on imaging of lung Wheezing Obesity, Class III, BMI 40-49.9 (morbid obesity) (HCC) Morbid obesity [facility] Diagnosis Hypothyroidism, acquired- Primary Unspecified hypothyroidism Mild episode of recurrent major depressive disorder (HCC) Gastroesophageal reflux disease, unspecified whether esophagitis present [facility] Diagnosis Wheezing [facility] Diagnosis Wheezing- Primary Abnormal finding on imaging Other nonspecific (abnormal) findings on radiological and other examinations of body structure Epigastric pain Abdominal pain, epigastric [facility]* Diagnosis Finger swelling Swelling of limb Swelling of both hands Elevated sed rate Elevated sedimentation rate Pain in joint, multiple sites Anasarca Edema Abnormal CXR Other nonspecific abnormal finding of lung field Tachycardia Tachycardia, unspecified Shortness of breath Malaise and fatigue Other malaise and fatigue Acrocyanosis (HCC) Other peripheral vascular disease [facility]* Diagnosis GERD without esophagitis- Primary Esophageal reflux Lymphadenopathy, axillary Enlargement of lymph nodes Elevated sed rate Elevated sedimentation rate CRP elevated Elevated C-reactive protein (CRP) Pain in axilla, unspecified laterality Dermatitis Contact dermatitis and other eczema, due to unspecified cause [facility]* Diagnosis Lymphadenopathy, axillary- Primary Enlargement of lymph nodes [facility]* Diagnosis Esophageal pain Other specified disorder of the esophagus GERD without esophagitis Esophageal reflux Lymphadenopathy, axillary Enlargement of lymph nodes [facility] Diagnosis URI, acute- Primary Acute upper respiratory infections of unspecified site Dermatitis Contact dermatitis and other eczema, due to unspecified cause Lymphadenopathy, axillary Enlargement of lymph nodes GERD without esophagitis Esophageal reflux Arthralgia of both hands Elevated sed rate Elevated sedimentation rate Swelling of finger Swelling of limb documented [facility]* Diagnosis Secondary lymphedema- Primary Other lymphedema Swelling of both hands Leg swelling Swelling of limb [facility]* Diagnosis Obesity, Class III, BMI 40-49.9 (morbid obesity) (HCC)- Primary Morbid obesity Weight gain Abnormal weight gain Hypothyroidism, unspecified type Malaise and fatigue Other malaise and fatigue Pain in joint, multiple sites Enlarged lymph node Enlargement of lymph nodes Encounter for screening for diabetes mellitus Screening for diabetes mellitus documented in this [facility]* Diagnosis GERD without esophagitis- Primary Esophageal reflux [facility]* Diagnosis Hypothyroidism, acquired Unspecified hypothyroidism documented in this encounter [facility]* Diagnosis Abnormal ultrasound- Primary Other nonspecific (abnormal) findings on radiological and other examinations of body structure documented in this encounter [facility] note* Diagnosis Mild episode of recurrent major depressive disorder (HCC) documented in this encounter [facility] note* Diagnosis Tachycardia, unspecified documented in this encounter [facility] note* Diagnosis Lymphadenopathy, axillary Enlargement of lymph nodes documented in this encounter [facility] note* Diagnosis Abnormal finding on imaging Other nonspecific (abnormal) findings on radiological and other examinations of body structure Ground glass opacity present on imaging of lung documented in this encounter [facility] note* Diagnosis Tachycardia Tachycardia, unspecified Encounter for screening for cardiovascular disorders Screening for other and unspecified cardiovascular conditions SAHU (dyspnea on exertion) Other dyspnea and respiratory abnormality Chest tightness Other chest pain documented in this encounter [facility] note* Diagnosis Lymphadenopathy, axillary Enlargement of lymph nodes Pain in axilla, unspecified laterality documented in this encounter [facility] note* Diagnosis Lymphadenopathy, axillary Enlargement of lymph nodes Pain in axilla, unspecified laterality documented in this encounter [facility] for referral (narrative)* Outpatient Procedure (Routine) - Authorized Specialty Diagnoses / Procedures Referred By Contac t Referred To Contact [facility] [place] Diagnoses Tachycardia Procedures ECHO ECHO TTHRC R-T 2D W/WOM-MODE COMPL SPEC&COLR D Mary Hardin APRN.WIRE GALVANIZER [address] [place] [address] [facility] [address] [address] Referral ID Status Reason Start Date Expiration Date Visits Requested Visits Authorized [id number] Authorized Auto-Generat ed Referral 08/30/2021 10/29/2021 1 1 * Outpatient Procedure (Routine) - Authorized Specialty Diagnoses / Procedures Referred By Contac t Referred To Contact [facility] [place] Diagnoses Tachycardia Procedures ECG COMPLETE ECG ROUTINE ECG W/LEAST 12 LDS W/I&R Mary Hardin APRN.WIRE GALVANIZER [address] [place] [address] [facility] [address] [place] [address] Referral ID Status Reason Start Date Expiration Date Visits Requested Visits Authorized [id number] Authorized Auto-Generat ed Referral 08/30/2021 08/30/2022 1 1 [facility] for referral (narrative)* Diagnostic Procedure Only (Routine) - Pending Review Specialty Diagnoses / Procedures Referred By Contac t Referred To Contact [facility] Diagnoses Tachycardia Encounter for screening for cardiovascular disorders SAHU (dyspnea on exertion) Chest tightness Procedures NM CARDIAC PERF STRESS/EXERCISE MYOCARDIAL SPECT MULTIPLE STUDIES Anju Fonseca APRN.CNP [address] [place] [address] [facility] [id number] Referral ID Status Reason Start Date Expiration Date Visits Requested Visits Authorized [id number] Pending Review Auto-Generat ed Referral 2 03/26/2023 1 1 [facility] for referral (narrative)* Outpatient Procedure (Routine) - Authorized Specialty Diagnoses / Procedures Referred By Contac t Referred To Contact [facility] Diagnoses Tachycardia, unspecified Procedures ECG COMPLETE ECG ROUTINE ECG W/LEAST 12 LDS W/I&R Rene Doherty MD [address] [place] [address] [facility] [place] [address] [place] [address] Referral ID Status Reason Start Date Expiration Date Visits Requested Visits Authorized [id number] Authorized Auto-Generat ed Referral 05/05/2022 05/05/2023 1 1 [facility] for referral (narrative)* Diagnostic Procedure Only (Routine) - Closed Specialty Diagnoses / Procedures Referred By Contac t Referred To Contact XR IMAGING Diagnoses Finger swelling Swelling of both hands Elevated sed rate Pain in joint, multiple sites Anasarca Abnormal CXR Tachycardia Shortness of breath Malaise and fatigue Acrocyanosis (HCC) Procedures XR ANKLE GENERAL 3V AP/LAT/OBL BILATERAL RADEX ANKLE COMPLETE MINIMUM 3 VIEWS Lucy Van MD [address] [place] [address] Xr Imaging Referral ID Status Reason Start Date Expiration Date V isits Requested Visits Authorized [id number] Closed Auto-Generate d Referral 05/23/2022 06/22/2023 1 1 * Diagnostic Procedure Only (Routine) - Closed Specialty Diagnoses / Procedures Referred By Contac t Referred To Contact XR IMAGING Diagnoses Finger swelling Swelling of both hands Elevated sed rate Pain in joint, multiple sites Anasarca Abnormal CXR Tachycardia Shortness of breath Malaise and fatigue Acrocyanosis (HCC) Procedures XR FOOT GENERAL 3V AP/LAT/OBL BILATERAL RADEX FOOT COMPLETE MINIMUM 3 VIEWS Lucy Van MD [address] [place] [address] Xr Imaging Referral ID Status Reason Start Date Expiration Date V isits Requested Visits Authorized [id number] Closed Auto-Generate d Referral 05/23/2022 06/22/2023 1 1 * Diagnostic Procedure Only (Routine) - Closed Specialty Diagnoses / Procedures Referred By Contac t Referred To Contact XR IMAGING Diagnoses Finger swelling Swelling of both hands Elevated sed rate Pain in joint, multiple sites Anasarca Abnormal CXR Tachycardia Shortness of breath Malaise and fatigue Acrocyanosis (HCC) Procedures XR HAND GENERAL 3V PA/LAT/OBL BILATERAL RADEX HAND MINIMUM 3 VIEWS Lucy Van MD [address] [id number] Xr Imaging Referral ID Status Reason Start Date Expiration Date V isits Requested Visits Authorized [id number] Closed Auto-Generate d Referral 05/23/2022 06/22/2023 1 1 [facility] for referral (narrative)* Diagnostic Procedure Only (Routine) - Closed Specialty Diagnoses / Procedures Referred By Jax ford Referred To Contact US IMAGING Diagnoses Finger swelling Swelling of both hands Elevated sed rate Pain in joint, multiple sites Anasarca Abnormal CXR Tachycardia Shortness of breath Malaise and fatigue Acrocyanosis (HCC) Procedures US FOOT/ANKLE SYNOVIAL SCREEN LT US LMTD JOINT/OTH NONVASC XTR STRUX R-T W/IMG Lucy Van MD [address] [place] [address] Us Imaging Referral ID Status Reason Start Date Expiration Date V isits Requested Visits Authorized [id number] Closed Auto-Generate d Referral 05/23/2022 06/22/2023 1 1 * Diagnostic Procedure Only (Routine) - Closed Specialty Diagnoses / Procedures Referred By Jax ford Referred To Contact US IMAGING Diagnoses Finger swelling Swelling of both hands Elevated sed rate Pain in joint, multiple sites Anasarca Abnormal CXR Tachycardia Shortness of breath Malaise and fatigue Acrocyanosis (HCC) Procedures US FOOT/ANKLE SYNOVIAL SCREEN RT US COMPL JOINT R-T W/IMAGE DOCUMENTATION Lucy Van MD [address] [place] [address] Us Imaging Referral ID Status Reason Start Date Expiration Date V isits Requested Visits Authorized [id number] Closed Auto-Generate d Referral 05/23/2022 06/22/2023 1 1 * Diagnostic Procedure Only (Routine) - Closed Specialty Diagnoses / Procedures Referred By Jax ford Referred To Contact US IMAGING Diagnoses Finger swelling Swelling of both hands Elevated sed rate Pain in joint, multiple sites Anasarca Abnormal CXR Tachycardia Shortness of breath Malaise and fatigue Acrocyanosis (HCC) Procedures US HAND/WRIST SYNOVIAL SCREEN LT US COMPL JOINT R-T W/IMAGE DOCUMENTATION Lucy Van MD [address] [place] [address] Us Imaging Referral ID Status Reason Start Date Expiration Date V isits Requested Visits Authorized [id number] Closed Auto-Generate d Referral 05/23/2022 06/22/2023 1 1 * Diagnostic Procedure Only (Routine) - Closed Specialty Diagnoses / Procedures Referred By Contac t Referred To Contact US IMAGING Diagnoses Finger swelling Swelling of both hands Elevated sed rate Pain in joint, multiple sites Anasarca Abnormal CXR Tachycardia Shortness of breath Malaise and fatigue Acrocyanosis (HCC) Procedures US HAND/WRIST SYNOVIAL SCREEN RT US COMPL JOINT R-T W/IMAGE DOCUMENTATION Lucy Van MD [address] [place] [address] Us Imaging Referral ID Status Reason Start Date Expiration Date V isits Requested Visits Authorized [id number] Closed Auto-Generate d Referral 05/23/2022 06/22/2023 1 1 [facility] for referral (narrative)* Diagnostic Procedure Only (Routine) - Pending Review Specialty Diagnoses / Procedures [facility] To [facility] Diagnoses Lymphadenopathy, axillary Procedures US BREAST LTD LEFT US BREAST UNI REAL TIME WITH IMAGE LIMITED Rene Doherty MD [address] [place] [address] [facility] [address] [place] [address] Referral ID Status Reason Start Date Expiration Date Visits Requested Visits Authorized [id number] Pending Review Auto-Generat ed Referral 09/24/2022 07/24/2023 1 1 [facility] for referral (narrative)* Outpatient Procedure (Routine) - Authorized Specialty Diagnoses / Procedures [facility] Diagnoses GERD without esophagitis Procedures EGD DIAGNOSTIC ESOPHAGOGASTRODUODENOSC OPY TRANSORAL DIAGNOSTIC Mary Carlisle MD [address] [address] [facility] [place] [address] [place] [address] Referral ID Status Reason Start Date Expiration Date Visits Requested Visits Authorized [id number] Authorized Auto-Generat ed Referral 06/24/2022 06/25/2023 1 1 [facility] for referral (narrative)* Diagnostic Procedure Only (Routine) - Denied Specialty Diagnoses / Procedures Referred By Contac t Referred To Contact [facility] Diagnoses Abnormal ultrasound Procedures US BREAST LTD LEFT US BREAST UNI REAL TIME WITH IMAGE LIMITED Rene Doherty MD [address] [place] [address] Br [facility] [address] [place] [address] Referral ID Status Reason Start Date Expiration Date V isits Requested Visits Authorized [id number] Denied Auto-Generate d Referral 04/09/2023 11/06/2023 1 0 [facility] for referral (narrative)* Diagnostic Procedure Only (Routine) - Closed Specialty Diagnoses / Procedures Referred By Contac t Referred To Contact BR IMAGING Diagnoses Lymphadenopathy, axillary Procedures US BREAST LTD LEFT US BREAST UNI REAL TIME WITH IMAGE LIMITED Rene Doherty MD [address] [place] [address] [facility] [address] [place] [address] Referral ID Status Reason Start Date Expiration Date V isits Requested Visits Authorized [id number] Closed Auto-Generate d Referral 09/24/2022 07/24/2023 1 1 [facility] for referral (narrative)* Diagnostic Procedure Only (Routine) - Closed Specialty Diagnoses / Procedures Referred By Contac t Referred To Contact MOLECULAR & FUNCTIONAL IMAGING Diagnoses Tachycardia Encounter for screening for cardiovascular disorders SAHU (dyspnea on exertion) Chest tightness Procedures NM CARDIAC PERF STRESS/EXERCISE MYOCARDIAL SPECT MULTIPLE STUDIES Anju Fonseca APRN.WIRE GALVANIZER [address] [place] [address] Molecular & Functional Imaging [address] [place] [phone] Referral ID Status Reason Start Date Expiration Date V isits Requested Visits Authorized [id number] Closed Auto-Generate d Referral 04/13/2022 06/12/2022 3 3 [facility] for referral (narrative)* Diagnostic Procedure Only (Routine) - Closed Specialty Diagnoses / Procedures Referred By Jax t Referred To Contact BR IMAGING Diagnoses Lymphadenopathy, axillary Pain in axilla, unspecified laterality Procedures US BREAST LTD RIGHT US BREAST UNI REAL TIME WITH IMAGE LIMITED Rene Doherty MD [address] [place], [place] [id number] [facility] [address] [place] [address] Referral ID Status Reason Start Date Expiration Date V isits Requested Visits Authorized [id number] Closed Auto-Generate d Referral 06/23/2022 07/23/2023 1 1 * Diagnostic Procedure Only (Routine) - Closed Specialty Diagnoses / Procedures Referred By Jax ford Referred To Contact BR IMAGING Diagnoses Lymphadenopathy, axillary Pain in axilla, unspecified laterality Procedures US BREAST LTD LEFT US BREAST UNI REAL TIME WITH IMAGE LIMITED Rene Doherty MD [address] [place], [place] [id number] [facility] [address] [place] [address] Referral ID Status Reason Start Date Expiration Date V isits Requested Visits Authorized [id number] Closed Auto-Generate d Referral 06/23/2022 07/23/2023 1 1 [facility] for visit Narrative* Diagnostic Procedure Only (Routine) - Authorized Specialty Diagnoses / Procedures Referred By Contac t Referred To Contact MOLECULAR & FUNCTIONAL IMAGING Diagnoses Tachycardia Encounter for screening for cardiovascular disorders SAHU (dyspnea on exertion) Chest tightness Procedures NM CARDIAC PERF STRESS/EXERCISE MYOCARDIAL SPECT MULTIPLE STUDIES Anju Fonseca, JANET.WIRE GALVANIZER [address] [place] [address] Molecular & Functional Imaging [address] [place] [address] Referral ID Status Reason Start Date Expiration Date Visits Requested Visits Authorized [id number] Authorized Auto-Generat ed Referral 04/13/2022 06/12/2022 3 3 [facility] for visit Narrative* Diagnostic Procedure Only (Routine) - Closed Specialty Diagnoses / Procedures Referred By Jax ford Referred To Contact XR IMAGING Diagnoses Finger swelling Swelling of both hands Elevated sed rate Pain in joint, multiple sites Anasarca Abnormal CXR Tachycardia Shortness of breath Malaise and fatigue Acrocyanosis (HCC) Procedures XR ANKLE GENERAL 3V AP/LAT/OBL BILATERAL RADEX ANKLE COMPLETE MINIMUM 3 VIEWS Lucy Van MD [address] [place] [address] Xr Imaging Referral ID Status Reason Start Date Expiration Date V isits Requested Visits Authorized [id number] Closed Auto-Generate d Referral 05/23/2022 06/22/2023 1 1 [facility] for visit Narrative* Diagnostic Procedure Only (Routine) - Closed Specialty Diagnoses / Procedures Referred By Jax t Referred To Contact US IMAGING Diagnoses Finger swelling Swelling of both hands Elevated sed rate Pain in joint, multiple sites Anasarca Abnormal CXR Tachycardia Shortness of breath Malaise and fatigue Acrocyanosis (HCC) Procedures US FOOT/ANKLE SYNOVIAL SCREEN RT US COMPL JOINT R-T W/IMAGE DOCUMENTATION Lucy Van MD [address] [place] [address] Us Imaging Referral ID Status Reason Start Date Expiration Date V isits Requested Visits Authorized [id number] Closed Auto-Generate d Referral 05/23/2022 06/22/2023 1 1 [facility] for visit Narrative* Diagnostic Procedure Only (Routine) - Closed Specialty Diagnoses / Procedures Referred By Contac t Referred To Contact MOLECULAR & FUNCTIONAL IMAGING Diagnoses Tachycardia Encounter for screening for cardiovascular disorders SAHU (dyspnea on exertion) Chest tightness Procedures NM CARDIAC PERF STRESS/EXERCISE MYOCARDIAL SPECT MULTIPLE STUDIES Anju Fonseca APRN.WIRE GALVANIZER [address] [place] [address] Molecular & Functional Imaging [address] [place] [address] Referral ID Status Reason Start Date Expiration Date V isits Requested Visits Authorized [id number] Closed Auto-Generate d Referral 04/13/2022 06/12/2022 3 [facility] Procedure Only (Routine) - Closed Specialty Diagnoses / Procedures Referred By Jax t Referred To Contact BR IMAGING Diagnoses Lymphadenopathy, axillary Pain in axilla, unspecified laterality Procedures MIRACLE DIAGNOSTIC BILATERAL DIAGNOSTIC MAMMOGRAPHY COMPUTER-AIDED DETCJ Rene Lagunas MD [address] [place] [address] [facility] Imaging [address] [place] [address] Referral ID Status Reason Start Date Expiration Date V isits Requested Visits Authorized [id number] Closed Auto-Generate d Referral 06/23/2022 07/23/2023 1 1 [facility] Summary Purpose Family History No Family History Records FoundNo Family History Records FoundNo Family History Records FoundNo Family History Records FoundNo Family History Records Found Advance Directives No Advanced Directives Records FoundDocuments on File Type Date 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 and Living Will Reason for Referral Specialty Diagnoses / Procedures Referred By Contac t Referred To Contact Nutrition Diagnoses Obesity, Class III, BMI 40-49.9 (morbid obesity) (HCC) Procedures CONSULT TO NUTRITION THERAPY OFFICE/OUTPATIENT NEW HIGH MDM 60-74 MINUTES Power Escamilla, PROPERTY INVESTOR.WIRE GALVANIZER, DNP [address] [place] [address] Referral ID Status Reason Start Date Expiration Date Visits Requested Visits Authorized [id number] Authorized PCP Requested Referral 07/12/2021 07/12/2022 1 1 [facility]ty Diagnoses / Procedures [facility] To Contact Podiatry Diagnoses Pes cavus Localized swelling of both lower legs Procedures CONSULT TO PODIATRY OFFICE/OUTPATIENT [facility] 60-74 MINUTES Power Escamilla, PROPERTY INVESTOR.WIRE GALVANIZER, DNP [address] [place] [address] Referral ID Status Reason Start Date Expiration Date Visits Requested Visits Authorized [id number] Authorized PCP Requested Referral 07/26/2021 07/12/2022 1 1 Specialty Diagnoses / Procedures Referred By Contac t Referred To Contact Cardiology Diagnoses Tachycardia Procedures CONSULT TO CARDIOLOGY OFFICE/OUTPATIENT [facility] 60-74 MINUTES Mary Hardin, PROPERTY INVESTOR.WIRE GALVANIZER [address] [place] [address] Referral ID Status Reason Start Date Expiration Date Visits Requested Visits Authorized [id number] Authorized PCP Requested Referral 09/16/2021 09/16/2022 1 1 Specialty Diagnoses / Procedures Referred By Contac t Referred To Contact [facility] Diagnoses Chest wall pain Procedures CONSULT TO PHYSICAL THERAPY PHYSICAL THERAPY EVALUATION HIGH COMPLEX 45 MINS Rene Doherty MD [address] [place] [address] [facility] [place] [address] [place] [address] Referral ID Status Reason Start Date Expiration Date Visits Requested Visits Authorized [id number] Pending Review Auto-Generat ed Referral 12/17/2021 12/17/2022 1 1 Specialty Diagnoses / Procedures Referred By Contac t Referred To Contact [facility] Diagnoses Chest wall pain Procedures PT REHAB FOLLOW UP ORDER PT REHAB FOLLOW UP ORDER THERAPEUTIC EXERCISES RE, EA 15 MIN. Darvin Valencia, YVON [facility] [place] [address] [place] [address] Referral ID Status Reason Start Date Expiration Date Visits Requested Visits Authorized [id number] Pending Review PCP Requested Referral Auto-Generate d Referral 12/19/2021 03/19/2022 1 1 Specialty Diagnoses / Procedures Referred By Contac t Referred To Contact Rheumatology Diagnoses Finger swelling Swelling of both hands Elevated sed rate Procedures CONSULT TO RHEUM/IMMUN DISEASE OFFICE/OUTPATIENT [facility] 60-74 MINUTES Rene Doherty MD [address] [place] [address] Referral ID Status Reason Start Date Expiration Date Visits Requested Visits Authorized [id number] Authorized PCP Requested Referral 05/06/2022 05/06/2023 1 1 Specialty Diagnoses / Procedures Referred By Contac t Referred To Contact Vascular Medicine Diagnoses Finger swelling Swelling of both hands Elevated sed rate Pain in joint, multiple sites Anasarca Abnormal CXR Tachycardia Shortness of breath Malaise and fatigue Acrocyanosis (HCC) Procedures CONSULT TO VASCULAR MEDICINE OFFICE/OUTPATIENT [facility] 60-74 MINUTES Lucy Van MD [address] [place] [phone] Referral ID Status Reason Start Date Expiration Date Visits Requested Visits Authorized [id number] Authorized PCP Requested Referral 05/23/2022 05/23/2023 1 1 Specialty Diagnoses / Procedures Referred By Contac t Referred To Contact US IMAGING Diagnoses Finger swelling Swelling of both hands Elevated sed rate Pain in joint, multiple sites Anasarca Abnormal CXR Tachycardia Shortness of breath Malaise and fatigue Acrocyanosis (HCC) Procedures US FOOT/ANKLE SYNOVIAL SCREEN LT US LMTD JOINT/OTH NONVASC XTR STRUX R-T W/IMG Lucy Van MD [address] [place] [address] Us Imaging Referral ID Status Reason Start Date Expiration Date Visits Requested Visits Authorized [id number] Pending Review Auto-Generat ed Referral 05/23/2022 06/22/2023 1 1 Specialty Diagnoses / Procedures Referred By Contac t Referred To Contact US IMAGING Diagnoses Finger swelling Swelling of both hands Elevated sed rate Pain in joint, multiple sites Anasarca Abnormal CXR Tachycardia Shortness of breath Malaise and fatigue Acrocyanosis (HCC) Procedures US FOOT/ANKLE SYNOVIAL SCREEN RT US COMPL JOINT R-T W/IMAGE DOCUMENTATION Lucy Van MD [address] [place] [address] Us Imaging Referral ID Status Reason Start Date Expiration Date Visits Requested Visits Authorized [id number] Pending Review Auto-Generat ed Referral 05/23/2022 06/22/2023 1 1 Specialty Diagnoses / Procedures Referred By Contac t Referred To Contact US IMAGING Diagnoses Finger swelling Swelling of both hands Elevated sed rate Pain in joint, multiple sites Anasarca Abnormal CXR Tachycardia Shortness of breath Malaise and fatigue Acrocyanosis (HCC) Procedures US HAND/WRIST SYNOVIAL SCREEN LT US COMPL JOINT R-T W/IMAGE DOCUMENTATION Lucy Van MD [address] [place] [address] Us Imaging Referral ID Status Reason Start Date Expiration Date Visits Requested Visits Authorized [id number] Pending Review Auto-Generat ed Referral 05/23/2022 06/22/2023 1 1 Specialty Diagnoses / Procedures Referred By Contac t Referred To Contact US IMAGING Diagnoses Finger swelling Swelling of both hands Elevated sed rate Pain in joint, multiple sites Anasarca Abnormal CXR Tachycardia Shortness of breath Malaise and fatigue Acrocyanosis (HCC) Procedures US HAND/WRIST SYNOVIAL SCREEN RT US COMPL JOINT R-T W/IMAGE DOCUMENTATION Lucy Van MD [address] [place] [address] Us Imaging Referral ID Status Reason Start Date Expiration Date Visits Requested Visits Authorized [id number] Pending Review Auto-Generat ed Referral 05/23/2022 06/22/2023 1 1 Specialty Diagnoses / Procedures Referred By Contac t Referred To Contact XR IMAGING Diagnoses Finger swelling Swelling of both hands Elevated sed rate Pain in joint, multiple sites Anasarca Abnormal CXR Tachycardia Shortness of breath Malaise and fatigue Acrocyanosis (HCC) Procedures XR ANKLE GENERAL 3V AP/LAT/OBL BILATERAL RADEX ANKLE COMPLETE MINIMUM 3 VIEWS Lucy Van MD [address] [place] [address] Xr Imaging Referral ID Status Reason Start Date Expiration Date V isits Requested Visits Authorized [id number] Closed Auto-Generate d Referral 05/23/2022 06/22/2023 1 1 Specialty Diagnoses / Procedures Referred By Contac t Referred To Contact XR IMAGING Diagnoses Finger swelling Swelling of both hands Elevated sed rate Pain in joint, multiple sites Anasarca Abnormal CXR Tachycardia Shortness of breath Malaise and fatigue Acrocyanosis (HCC) Procedures XR FOOT GENERAL 3V AP/LAT/OBL BILATERAL RADEX FOOT COMPLETE MINIMUM 3 VIEWS Lucy Van MD [address] [place] [address] Xr Imaging Referral ID Status Reason Start Date Expiration Date V isits Requested Visits Authorized [id number] Closed Auto-Generate d Referral 05/23/2022 06/22/2023 1 1 Specialty Diagnoses / Procedures Referred By Contac t Referred To Contact XR IMAGING Diagnoses Finger swelling Swelling of both hands Elevated sed rate Pain in joint, multiple sites Anasarca Abnormal CXR Tachycardia Shortness of breath Malaise and fatigue Acrocyanosis (HCC) Procedures XR HAND GENERAL 3V PA/LAT/OBL BILATERAL RADEX HAND MINIMUM 3 VIEWS Lucy Van MD [address] [place] [address] Xr Imaging Referral ID Status Reason Start Date Expiration Date V isits Requested Visits Authorized [id number] Closed Auto-Generate d Referral 05/23/2022 06/22/2023 1 1 Specialty Diagnoses / Procedures Referred By Franac t Referred To Contact [facility] Diagnoses Swelling of both hands Secondary lymphedema Leg swelling Procedures CONSULT TO LYMPHEDEMA THERAPY OFFICE/OUTPATIENT [facility] 60-74 MINUTES Umesh Patton DO [address] [place] [address] [facility] [place] [address] Referral ID Status Reason Start Date Expiration Date Visits Requested Visits Authorized [id number] Authorized Auto-Generat ed Referral 06/02/2022 06/02/2023 1 1 Specialty Diagnoses / Procedures Referred By Contac t Referred To Contact Diagnoses Secondary lymphedema Leg swelling Morbid obesity with BMI of 40.0-44.9, adult (HCC) Umesh Patton DO [address] [place] [address] Referral ID Status Reason Start Date Expiration Date Visits Re quested Visits Authorized [id number] Closed 1 1 Specialty Diagnoses / Procedures Referred By Contac t Referred To Contact CT IMAGING Diagnoses Abnormal finding on imaging Ground glass opacity present on imaging of lung Procedures CT CHEST WO IVCON DIAGNOSTIC COMPUTED TOMOGRAPHY THORAX W/O CNTRST Evelia Rosenthal MD [address] [place] [address] Ct Imaging Referral ID Status Reason Start Date Expiration Date Visits Requested Visits Authorized [id number] Pending Review Auto-Genera bishop Referral Patient Cleared - Admin/Chair man/Directo r advise to proceed 06/05/2022 07/05/2023 1 1 Specialty Diagnoses / Procedures Referred By Contac t Referred To Contact [facility] Diagnoses Wheezing Procedures NITRIC OXIDE, EXHALED NITRIC OXIDE GAS DETERMINATION Evelia Rosenthal MD [address] [facility] [place] [address] [facility] [place] [address] [place] [address] Referral ID Status Reason Start Date Expiration Date Visits Requested Visits Authorized [id number] Authorized Auto-Generat ed Referral 06/05/2022 07/05/2023 1 1 Specialty Diagnoses / Procedures Referred By Contac t Referred To Contact [facility] Diagnoses Wheezing Procedures SPIROMETRY WITH DILATOR IF OBSTRUCTED BRNCDILAT RSPSE SPMTRY PRE&POST-BRNCDILAT ADMN Evelia Rosenthal MD [address] [place] [address] [facility] [place] [address] [place] [address] Referral ID Status Reason Start Date Expiration Date Visits Requested Visits Authorized [id number] Authorized Auto-Generat ed Referral 06/05/2022 07/05/2023 1 1 Specialty Diagnoses / Procedures Referred By Contac t Referred To Contact General Surgery Diagnoses GERD without esophagitis Lymphadenopathy, axillary Pain in axilla, unspecified laterality Procedures CONSULT TO GENERAL SURGERY OFFICE/OUTPATIENT [facility] 60-74 MINUTES Rene Doherty MD [address] [place] [address] Referral ID Status Reason Start Date Expiration Date Visits Requested Visits Authorized [id number] Authorized PCP Requested Referral 06/23/2022 06/23/2023 1 1 Specialty Diagnoses / Procedures Referred By Contac t Referred To Contact BR IMAGING Diagnoses Lymphadenopathy, axillary Pain in axilla, unspecified laterality Procedures US BREAST LTD RIGHT US BREAST UNI REAL TIME WITH IMAGE LIMITED Rene Doherty MD [address] [place] [address] [facility] [address] [place] [phone] Referral ID Status Reason Start Date Expiration Date Visits Requested Visits Authorized [id number] Authorized Auto-Generat ed Referral 06/23/2022 07/23/2023 1 1 Specialty Diagnoses / Procedures Referred By Contac t Referred To Contact BR IMAGING Diagnoses Lymphadenopathy, axillary Pain in axilla, unspecified laterality Procedures US BREAST LTD LEFT US BREAST UNI REAL TIME WITH IMAGE LIMITED Rene Doherty MD [address] [place] [address] [facility] [address] [place] [phone] Referral ID Status Reason Start Date Expiration Date Visits Requested Visits Authorized [id number] Authorized Auto-Generat ed Referral 06/23/2022 07/23/2023 1 1 Specialty Diagnoses / Procedures Referred By Contac t Referred To Contact BR IMAGING Diagnoses Lymphadenopathy, axillary Pain in axilla, unspecified laterality Procedures MIRACLE DIAGNOSTIC BILATERAL DIAGNOSTIC MAMMOGRAPHY COMPUTER-AIDED DETCJ BI Rene Doherty MD [address] [place] [address] [facility] [address] [place] [phone] Referral ID Status Reason Start Date Expiration Date Visits Requested Visits Authorized [id number] Authorized Auto-Generat ed Referral 06/23/2022 07/23/2023 1 1 Specialty Diagnoses / Procedures Referred By Contac t Referred To Contact Dermatology Diagnoses Dermatitis Procedures CONSULT TO DERMATOLOGY Rene Doherty MD [address] [place] [address] Referral ID Status Reason Start Date Expiration Date Visits Requested Visits Authorized [id number] Ref Not Required PCP Requested Referral 07/21/2022 07/21/2023 1 1 Specialty Diagnoses / Procedures Referred By Contac t Referred To Contact PHYSICAL THERAPY Diagnoses Swelling of both hands Secondary lymphedema Leg swelling Procedures PT REHAB FOLLOW UP ORDER THERAPEUTIC EXERCISES RE, EA 15 MIN. Rene Doherty MD [address] [place] [address] Pt [facility] [address] [place] [address] Referral ID Status Reason Start Date Expiration Date Visits Requested Visits Authorized [id number] Pending Review PCP Requested Referral Auto-Generate d Referral 07/21/2022 10/19/2022 1 1 Specialty Diagnoses / Procedures Referred By Contac t Referred To Contact Diagnoses Obesity, Class III, BMI 40-49.9 (morbid obesity) (HCC) Procedures ENDOCRINE MEDICAL WEIGHT MANAGEMENT OFFICE/OUTPATIENT [facility] HIGH MDM 60-74 MINUTES Kristin Thomas MD [address] [phone] Referral ID Status Reason Start Date Expiration Date Visits Requested Visits Authorized [id number] Authorized PCP Requested Referral 09/11/2022 09/11/2023 1 1 Specialty Diagnoses / Procedures Referred By Contac t Referred To Contact CT IMAGING Diagnoses Abnormal finding on imaging Ground glass opacity present on imaging of lung Procedures CT CHEST WO IVCON DIAGNOSTIC COMPUTED TOMOGRAPHY THORAX W/O FLORIDAT Evelia Rosenthal MD [address] [place] [address] Ct Imaging [place] [address] Referral ID Status Reason Start Date Expiration Date V isits Requested Visits Authorized [id number] Closed Auto-Generat ed Referral Patient Cleared - Admin/Chairm an/Director advise to proceed or did not respond 06/05/2022 08/04/2022 1 1 Additional Source Comments INFORMATION SOURCE (unrecogn ized section and content) DATE CREATED AUTHOR AUTHOR'S ORGANIZ ATION 06/09/2021 [facility] DATE CREATED AUTHOR AUTHOR'S ORGANIZ ATION 09/10/2022 [facility] DATE CREATED AUTHOR AUTHOR'S ORGANIZ ATION 10/28/2022 Arnoldo Pardo [facility] DATE CREATED AUTHOR AUTHOR'S ORGANIZ ATION 03/09/2023 [facility] Reason for Visit (unrecogniz ed section and content) Specialty Diagnoses / Procedures Referred By Jax t Referred To Contact [facility] Diagnoses Chest wall pain Procedures PT REHAB FOLLOW UP ORDER PT REHAB FOLLOW UP ORDER THERAPEUTIC EXERCISES RE, EA 15 MIN. Darvin Valencia, YVON [facility] [place] [address] [place] [address] Referral ID Status Reason Start Date Expiration Date Visits Requested Visits Authorized [id number] Authorized PCP Requested Referral Auto-Generate d Referral 12/19/2021 02/18/2022 16 16 Specialty Diagnoses / Procedures Referred By Jax t Referred To Contact Rheumatology Diagnoses Arthralgia, unspecified joint Elevated sed rate CRP elevated Power Escamilla, WIRE GALVANIZER [address] [place] [address] Esvin Correa MD [address] [place] [address] Referral ID Status Reason Start Date Expiration Date V isits Requested Visits Authorized [id number] Pending Review 03/07/2021 03/07/2022 1 1 Reason Comments Sore Throat with prior vomiting and fever, cough x5 days Reason Comments swelling in hands and ankles X 2 weeks Reason Comments Recheck heart rate and swoll en ankles Reason Comments Patient Education Assessment Specialty Diagnoses / Procedures Referred By Jax ford Referred To Contact Nutrition Diagnoses Obesity, Class III, BMI 40-49.9 (morbid obesity) ([facility]) Procedures CONSULT TO NUTRITION THERAPY OFFICE/OUTPATIENT [facility] 60-74 MINUTES Power Escamilla, PROPERTY INVESTOR.WIRE GALVANIZER, DNP [address] [place] [address] Referral ID Status Reason Start Date Expiration Date V isits Requested Visits Authorized [id number] Closed PCP Requested Referral 07/12/2021 07/12/2022 1 1 Reason Comments Zio Placement Reason Comments Results Reason Comments Rash across back x 1 week , itching and burning Reason Comments Recheck 6 month follow up Reason Comments Results Reason Comments Rash x 1 week, itching an d burning Reason Comments Reassessment Patient Education Reason Comments Pain C/O Constant R shoul gautam blade pain that radiates down into right side underneath right breast. Describes pain as sharp but sometimes dull pain. SOB with and without exertion. Symptoms have been going on past two weeks. Has tried OTC Tylenol and Ibuprofen, Rx'd Naproxen and muscle relaxer with no relief. Two ER visits. Reason Comments Critical Lab Value-D Dimer Reason Onset Date Comments Refill Request 12/12/2021 Reason Comments ER F/U Reason Comments PT Eval Specialty Diagnoses / Procedures Referred By Contac t Referred To Contact [facility] Diagnoses Chest wall pain Procedures CONSULT TO PHYSICAL THERAPY PHYSICAL THERAPY [facility] COMPLEX 45 MINS Rene Doherty MD [address] [place] [address] [facility] [place] [address] [place] [address] Referral ID Status Reason Start Date Expiration Date Visits Re quested Visits Authorized [id number] Closed 12/18/2021 03/29/2022 1 1 Reason Onset Date Comments Opened In Error 12/20/2021 Reason Comments Physical Therapy Reason Comments New Patient Tachycardia Specialty Diagnoses / Procedures Referred By Contac t Referred To Contact Cardiology Diagnoses Tachycardia Procedures CONSULT TO CARDIOLOGY OFFICE/OUTPATIENT [facility] 60-74 MINUTES Mary Hardin APRN.CNP [address] [place] [address] Referral ID Status Reason Start Date Expiration Date V isits Requested Visits Authorized [id number] Closed PCP Requested Referral 09/16/2021 09/16/2022 1 1 Reason Comments Follow Up Reason Comments Edema Reason Comments Cough Reason Comments Orders Genetic Testing - Fa milial Variant Testing (MYBPC3) Specialty Diagnoses / Procedures Referred By Contac t Referred To Contact Rheumatology Diagnoses Finger swelling Swelling of both hands Elevated sed rate Procedures CONSULT TO RHEUM/IMMUN DISEASE OFFICE/OUTPATIENT [facility] 60-74 MINUTES Rene Doherty MD [address] [place] [address] Referral ID Status Reason Start Date Expiration Date V isits Requested Visits Authorized [id number] Closed PCP Requested Referral 05/06/2022 05/06/2023 1 1 Reason Comments Appointment Reason Comments Consult Swelling bilateral h ands and fingers Specialty Diagnoses / Procedures Referred By Contac t Referred To Contact Vascular Medicine Diagnoses Finger swelling Swelling of both hands Elevated sed rate Pain in joint, multiple sites Anasarca Abnormal CXR Tachycardia Shortness of breath Malaise and fatigue Acrocyanosis (HCC) Procedures CONSULT TO VASCULAR MEDICINE OFFICE/OUTPATIENT [facility] 60-74 MINUTES Lucy Van MD [address] [place] [address] Referral ID Status Reason Start Date Expiration Date V isits Requested Visits Authorized [id number] Closed PCP Requested Referral 05/23/2022 05/23/2023 1 1 Reason Comments New Patient Abnormal imaging Reason Comments Results Genetic Testing for Familial MYBPC3 Variant - NEGATIVE Reason Comments ER F/U [facility] ER follow up- di scuss thyroid medication Reason Comments Spirometry Specialty Diagnoses / Procedures Referred By Contac t Referred To Contact [facility] Diagnoses Wheezing Procedures SPIROMETRY WITH DILATOR IF OBSTRUCTED BRNCDILAT RSPSE SPMTRY PRE&POST-BRNCDILAT Evelia Dawkins MD [address] [place] [address] [facility] [place] [address] [place] [address] Referral ID Status Reason Start Date Expiration Date V isits Requested Visits Authorized [id number] Closed Auto-Generate d Referral 06/05/2022 07/05/2023 1 1 Reason Comments Wheezing Reason Comments Patient Question Reason Comments Results Discuss results of C T Reason Comments Consult GERD and bilateral a xillary lymphadenopathy Specialty Diagnoses / Procedures Referred By Contac t Referred To Contact General Surgery Diagnoses GERD without esophagitis Lymphadenopathy, axillary Pain in axilla, unspecified laterality Procedures CONSULT TO GENERAL SURGERY OFFICE/OUTPATIENT [facility] MDM 60-74 MINUTES Rene Doherty MD [address] [place] [address] Referral ID Status Reason Start Date Expiration Date V isits Requested Visits Authorized [id number] Closed PCP Requested Referral 06/23/2022 06/23/2023 1 1 Reason Comments Follow Up Specialty Diagnoses / Procedures Referred By Contac t Referred To Contact [facility] Diagnoses Swelling of both hands Secondary lymphedema Leg swelling Procedures CONSULT TO LYMPHEDEMA THERAPY OFFICE/OUTPATIENT [facility] 60-74 MINUTES Umesh Patton DO [address] [place] [address] [facility] [place] [address] [place] [address] Referral ID Status Reason Start Date Expiration Date V isits Requested Visits Authorized [id number] Closed Auto-Generate d Referral 06/02/2022 06/02/2023 1 1 Reason Comments Release Of Medical Records Reason Comments Salivary cortisolkits\ Reason Comments Obesity Thyroid Problem Specialty Diagnoses / Procedures Referred By Contac t Referred To Contact Endocrinology Diagnoses Weight gain Hypothyroidism, unspecified type Malaise and fatigue Pain in joint, multiple sites Enlarged lymph node Procedures CONSULT TO ENDOCRINOLOGY OFFICE/OUTPATIENT [facility] 60-74 MINUTES Lucy Van MD [address] [place] [address] Referral ID Status Reason Start Date Expiration Date V isits Requested Visits Authorized [id number] Closed PCP Requested Referral 08/22/2022 08/22/2023 1 1 Reason Comments Follow Up EGD Reason Comments Refill Request Reason Comments Patient Question Shocking feeling in body Reason Onset Date Comments Refill Request 12/31/2022 Specialty Diagnoses / Procedures Referred By Contac t Referred To Contact Cardiology / CARD ADMIN [facility] Diagnoses 6 month follow up - ok to db Procedures EST PATIENT Self Raeann Interiano MD [address] [place] [address] Referral ID Status Reason Start Date Expiration Date V isits Requested Visits Authorized [id number] Waiting for Response 01/12/2023 04/12/2023 1 1 Reason Comments Radiology US Specialty Diagnoses / Procedures Referred By Contac t Referred To Contact [facility] Diagnoses Lymphadenopathy, axillary Procedures US BREAST LTD LEFT US BREAST UNI REAL TIME WITH IMAGE LIMITED Rene Doherty MD [address] [place] [address] [facility] [address] [place] [address] Referral ID Status Reason Start Date Expiration Date V isits Requested Visits Authorized [id number] Closed Auto-Generate d Referral 09/24/2022 07/24/2023 1 [address] Specialty Diagnoses / Procedures Referred By Contac t Referred To Contact CT IMAGING Diagnoses Abnormal finding on imaging Ground glass opacity present on imaging of lung Procedures CT CHEST WO IVCON DIAGNOSTIC COMPUTED TOMOGRAPHY THORAX W/O CNTRST Evelia Rosenthal MD [address] [place] [address] [place] [address] Referral ID Status Reason Start Date Expiration Date V isits Requested Visits Authorized [id number] Closed Auto-Generat ed Referral Patient Cleared - Admin/Chairm an/Director advise to proceed or did not respond 06/05/2022 08/04/2022 1 1 Reason Comments Radiology NM Reason Comments Radiology US Specialty Diagnoses / Procedures Referred By Contac t Referred To Contact [facility] Diagnoses Lymphadenopathy, axillary Pain in axilla, unspecified laterality Procedures US BREAST LTD RIGHT US BREAST UNI REAL TIME WITH IMAGE LIMITED Rene Doherty MD [address] [place] [address] [facility] [address] [place] [address] Referral ID Status Reason Start Date Expiration Date V isits Requested Visits Authorized [id number] Closed Auto-Generate d Referral 06/23/2022 07/23/2023 1 1 Care Teams (unrecognized sec tion and content) 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 Start Date End Date Rene Doherty MD [address] [place] [address] PCP - General Family Practice 02/27/21 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 Start Date End Date Rene Doherty MD [address] [place], [place] [id number] PCP - General Family Practice 02/27/21 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 Start Date End Date Rene Doherty MD [address] [place], [place] [id number] PCP - General Family Practice 02/27/21 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 Start Date End Date Rene Doherty MD [address] [place] [address] PCP - General Family Practice 02/27/21 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 Start Date End Date Rene Doherty MD [address] [place] [address] PCP - General Family Practice 02/27/21 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 Start Date End Date Rene Doherty MD [address] [place] [address] PCP - General Family Practice 02/27/21 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 Start Date End Date Rene Doherty MD [address] [place] [address] PCP - General Family Practice 02/27/21 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 Start Date End Date Rene Doherty MD [address] [place] [address] PCP - General Family Practice 02/27/21 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 Start Date End Date Rene Doherty MD [address] [place] [address] PCP - General Family Practice 02/27/21 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 Start Date End Date Rene Doherty MD [address] [place] [address] PCP - General Family Practice 02/27/21 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 Start Date End Date Rene Doherty MD [address] [place] [address] PCP - General Family Practice 02/27/21 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 Start Date End Date Rene Doherty MD [address] [place] [address] PCP - General Family Medicine 02/27/21 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 Start Date End Date Rene Doherty MD [address] [place] [address] PCP - General Family Medicine 02/27/21 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 Start Date End Date Rene Doherty MD [address] [place] [address] PCP - General Family Medicine 02/27/21 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 Start Date End Date Rene Doherty MD [address] [place] [address] PCP - General Family Medicine 02/27/21 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 Start Date End Date Rene Doherty MD [address] [place] [address] PCP - General Family Medicine 02/27/21 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 Start Date End Date Rene Doherty MD [address] [place] [address] PCP - General Family Medicine 02/27/21 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 Start Date End Date Rene Doherty MD [address] [place] [address] PCP - General Family Medicine 02/27/21 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 Start Date End Date Rene Doherty MD [address] [place] [address] PCP - General Family Medicine 02/27/21 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 Start Date End Date Rene Doherty MD [address] [place] [address] PCP - General Family Medicine 02/27/21 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 Start Date End Date Rene Doherty MD [address] [place] [address] PCP - General Family Medicine 02/27/21 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 Start Date End Date Rene Doherty MD [address] [place] [address] PCP - General Family Medicine 02/27/21 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 Start Date End Date Rene Doherty MD [address] [place] [address] PCP - General Family Medicine 02/27/21 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 Start Date End Date Rene Doherty MD [address] [place] [address] PCP - General Family Medicine 02/27/21 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 Start Date End Date Rene Doherty MD [address] [place] [address] PCP - General Family Medicine 02/27/21 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 Start Date End Date Rene Doherty MD [address] [place] [address] PCP - General Family Medicine 02/27/21 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 Start Date End Date Rene Doherty MD [address] [place] [address] PCP - General Family Medicine 02/27/21 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 Start Date End Date Rene Doherty MD [address] [place] [address] PCP - General Family Medicine 02/27/21 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 Start Date End Date Rene Dhoerty MD [address] [place] [address] PCP - General Family Medicine 02/27/21 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 Start Date End Date Rene Doherty MD [address] [place] [address] PCP - General Family Medicine 02/27/21 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 Start Date End Date Rene Doherty MD [address] [place] [address] PCP - General Family Medicine 02/27/21 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 Start Date End Date Rene Doherty MD [address] [place] [address] PCP - General Family Medicine 02/27/21 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 Start Date End Date Rene Doherty MD [address] [place] [address] PCP - General Family Medicine 02/27/21 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 Start Date End Date Rene Doherty MD [address] [place] [address] PCP - General Family Medicine 02/27/21 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 Start Date End Date Rene Doherty MD [address] [place] [address] PCP - General Family Medicine 02/27/21 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 Start Date End Date Rene Doherty MD [address] [place] [address] PCP - General Family Medicine 02/27/21 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 Start Date End Date Rene Doherty MD [address] [place] [address] PCP - General Family Medicine 02/27/21 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 Start Date End Date Rene Doherty MD [address] [place] [address] PCP - General Family Medicine 02/27/21 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 Start Date End Date Rene Doherty MD [address] [place] [address] PCP - General Family Medicine 02/27/21 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 Start Date End Date Rene Doherty MD [address] [place], [place] [address] PCP - General Family Medicine 02/27/21 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 Start Date End Date Rene Doherty MD [address] [place] [address] PCP - General Family Medicine 02/27/21 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 Start Date End Date Rene Doherty MD [address] [place] [address] PCP - General Family Medicine 02/27/21 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 Start Date End Date Rene Doherty MD [address] [place] [address] PCP - General Family Medicine 02/27/21 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 Start Date End Date Rene Doherty MD [address] [place] [address] PCP - General Family Medicine 02/27/21 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 Start Date End Date Rene Doherty MD [address] [place] [address] PCP - General Family Medicine 02/27/21 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 Start Date End Date Rene Doherty MD [address] [place], [place] [address] PCP - General Family Medicine 02/27/21 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 Start Date End Date Rene Doherty MD [address] [place] [address] PCP - General Family Medicine 02/27/21 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 Start Date End Date Rene Doherty MD [address] [place], [place] [address] PCP - General Family Medicine 02/27/21 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 Start Date End Date Rene Doherty MD [address] [place] [address] PCP - General Family Medicine 02/27/21 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 Start Date End Date Rene Doherty MD [address] [place], [place] [address] PCP - General Family Medicine 02/27/21 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 Start Date End Date Rene Doherty MD [address] [place], [place] [address] PCP - General Family Medicine 02/27/21 Source Comments (unrecognize d section and content) In the event this informatio n is protected by the [facility] Confidentiality of Alcohol and Drug Abuse Patient Records regulations: The Federal rules restrict any use of the information to criminally investigate or prosecute any alcohol or drug abuse patient.[facility] HospitalIn the event this information is protected by the Federal Confidentiality of Alcohol and Drug Abuse Patient Records regulations: The Federal rules restrict any use of the information to criminally investigate or prosecute any alcohol or drug abuse patient.[facility] HospitalIn the event this information is protected by the Federal Confidentiality of Alcohol and Drug Abuse Patient Records regulations: The Federal rules restrict any use of the information to criminally investigate or prosecute any alcohol or drug abuse patient.[facility] HospitalIn the event this information is protected by the Federal Confidentiality of Alcohol and Drug Abuse Patient Records regulations: The Federal rules restrict any use of the information to criminally investigate or prosecute any alcohol or drug abuse patient.[facility] HospitalIn the event this information is protected by the Federal Confidentiality of Alcohol and Drug Abuse Patient Records regulations: The Federal rules restrict any use of the information to criminally investigate or prosecute any alcohol or drug abuse patient.[facility] HospitalIn the event this information is protected by the Federal Confidentiality of Alcohol and Drug Abuse Patient Records regulations: The Federal rules restrict any use of the information to criminally investigate or prosecute any alcohol or drug abuse patient.[facility] HospitalIn the event this information is protected by the Federal Confidentiality of Alcohol and Drug Abuse Patient Records regulations: The Federal rules restrict any use of the information to criminally investigate or prosecute any alcohol or drug abuse patient.[facility] HospitalIn the event this information is protected by the Federal Confidentiality of Alcohol and Drug Abuse Patient Records regulations: The Federal rules restrict any use of the information to criminally investigate or prosecute any alcohol or drug abuse patient.[facility] HospitalIn the event this information is protected by the Federal Confidentiality of Alcohol and Drug Abuse Patient Records regulations: The Federal rules restrict any use of the information to criminally investigate or prosecute any alcohol or drug abuse patient.[facility] HospitalIn the event this information is protected by the Federal Confidentiality of Alcohol and Drug Abuse Patient Records regulations: The Federal rules restrict any use of the information to criminally investigate or prosecute any alcohol or drug abuse patient.[facility] HospitalIn the event this information is protected by the Federal Confidentiality of Alcohol and Drug Abuse Patient Records regulations: The Federal rules restrict any use of the information to criminally investigate or prosecute any alcohol or drug abuse patient.[facility] HospitalIn the event this information is protected by the Federal Confidentiality of Alcohol and Drug Abuse Patient Records regulations: The Federal rules restrict any use of the information to criminally investigate or prosecute any alcohol or drug abuse patient.[facility] HospitalIn the event this information is protected by the Federal Confidentiality of Alcohol and Drug Abuse Patient Records regulations: The Federal rules restrict any use of the information to criminally investigate or prosecute any alcohol or drug abuse patient.[facility] HospitalIn the event this information is protected by the Federal Confidentiality of Alcohol and Drug Abuse Patient Records regulations: The Federal rules restrict any use of the information to criminally investigate or prosecute any alcohol or drug abuse patient.[facility] HospitalIn the event this information is protected by the Federal Confidentiality of Alcohol and Drug Abuse Patient Records regulations: The Federal rules restrict any use of the information to criminally investigate or prosecute any alcohol or drug abuse patient.[facility] HospitalIn the event this information is protected by the Federal Confidentiality of Alcohol and Drug Abuse Patient Records regulations: The Federal rules restrict any use of the information to criminally investigate or prosecute any alcohol or drug abuse patient.[facility] HospitalIn the event this information is protected by the Federal Confidentiality of Alcohol and Drug Abuse Patient Records regulations: The Federal rules restrict any use of the information to criminally investigate or prosecute any alcohol or drug abuse patient.[facility] HospitalIn the event this information is protected by the Federal Confidentiality of Alcohol and Drug Abuse Patient Records regulations: The Federal rules restrict any use of the information to criminally investigate or prosecute any alcohol or drug abuse patient.[facility] HospitalIn the event this information is protected by the Federal Confidentiality of Alcohol and Drug Abuse Patient Records regulations: The Federal rules restrict any use of the information to criminally investigate or prosecute any alcohol or drug abuse patient.[facility] HospitalIn the event this information is protected by the Federal Confidentiality of Alcohol and Drug Abuse Patient Records regulations: The Federal rules restrict any use of the information to criminally investigate or prosecute any alcohol or drug abuse patient.[facility] HospitalIn the event this information is protected by the Federal Confidentiality of Alcohol and Drug Abuse Patient Records regulations: The Federal rules restrict any use of the information to criminally investigate or prosecute any alcohol or drug abuse patient.[facility] HospitalIn the event this information is protected by the Federal Confidentiality of Alcohol and Drug Abuse Patient Records regulations: The Federal rules restrict any use of the information to criminally investigate or prosecute any alcohol or drug abuse patient.[facility] HospitalIn the event this information is protected by the Federal Confidentiality of Alcohol and Drug Abuse Patient Records regulations: The Federal rules restrict any use of the information to criminally investigate or prosecute any alcohol or drug abuse patient.[facility] HospitalIn the event this information is protected by the Federal Confidentiality of Alcohol and Drug Abuse Patient Records regulations: The Federal rules restrict any use of the information to criminally investigate or prosecute any alcohol or drug abuse patient.[facility] HospitalIn the event this information is protected by the Federal Confidentiality of Alcohol and Drug Abuse Patient Records regulations: The Federal rules restrict any use of the information to criminally investigate or prosecute any alcohol or drug abuse patient.[facility] HospitalIn the event this information is protected by the Federal Confidentiality of Alcohol and Drug Abuse Patient Records regulations: The Federal rules restrict any use of the information to criminally investigate or prosecute any alcohol or drug abuse patient.[facility] HospitalIn the event this information is protected by the Federal Confidentiality of Alcohol and Drug Abuse Patient Records regulations: The Federal rules restrict any use of the information to criminally investigate or prosecute any alcohol or drug abuse patient.[facility] HospitalIn the event this information is protected by the Federal Confidentiality of Alcohol and Drug Abuse Patient Records regulations: The Federal rules restrict any use of the information to criminally investigate or prosecute any alcohol or drug abuse patient.[facility] HospitalIn the event this information is protected by the Federal Confidentiality of Alcohol and Drug Abuse Patient Records regulations: The Federal rules restrict any use of the information to criminally investigate or prosecute any alcohol or drug abuse patient.[facility] HospitalIn the event this information is protected by the Federal Confidentiality of Alcohol and Drug Abuse Patient Records regulations: The Federal rules restrict any use of the information to criminally investigate or prosecute any alcohol or drug abuse patient.[facility] HospitalIn the event this information is protected by the Federal Confidentiality of Alcohol and Drug Abuse Patient Records regulations: The Federal rules restrict any use of the information to criminally investigate or prosecute any alcohol or drug abuse patient.[facility] HospitalIn the event this information is protected by the Federal Confidentiality of Alcohol and Drug Abuse Patient Records regulations: The Federal rules restrict any use of the information to criminally investigate or prosecute any alcohol or drug abuse patient.[facility] HospitalIn the event this information is protected by the Federal Confidentiality of Alcohol and Drug Abuse Patient Records regulations: The Federal rules restrict any use of the information to criminally investigate or prosecute any alcohol or drug abuse patient.[facility] HospitalIn the event this information is protected by the Federal Confidentiality of Alcohol and Drug Abuse Patient Records regulations: The Federal rules restrict any use of the information to criminally investigate or prosecute any alcohol or drug abuse patient.[facility] HospitalIn the event this information is protected by the Federal Confidentiality of Alcohol and Drug Abuse Patient Records regulations: The Federal rules restrict any use of the information to criminally investigate or prosecute any alcohol or drug abuse patient.[facility] HospitalIn the event this information is protected by the Federal Confidentiality of Alcohol and Drug Abuse Patient Records regulations: The Federal rules restrict any use of the information to criminally investigate or prosecute any alcohol or drug abuse patient.[facility] HospitalIn the event this information is protected by the Federal Confidentiality of Alcohol and Drug Abuse Patient Records regulations: The Federal rules restrict any use of the information to criminally investigate or prosecute any alcohol or drug abuse patient.[facility] HospitalIn the event this information is protected by the Federal Confidentiality of Alcohol and Drug Abuse Patient Records regulations: The Federal rules restrict any use of the information to criminally investigate or prosecute any alcohol or drug abuse patient.[facility] HospitalIn the event this information is protected by the Federal Confidentiality of Alcohol and Drug Abuse Patient Records regulations: The Federal rules restrict any use of the information to criminally investigate or prosecute any alcohol or drug abuse patient.[facility] HospitalIn the event this information is protected by the Federal Confidentiality of Alcohol and Drug Abuse Patient Records regulations: The Federal rules restrict any use of the information to criminally investigate or prosecute any alcohol or drug abuse patient.[facility] HospitalIn the event this information is protected by the Federal Confidentiality of Alcohol and Drug Abuse Patient Records regulations: The Federal rules restrict any use of the information to criminally investigate or prosecute any alcohol or drug abuse patient.[facility] HospitalIn the event this information is protected by the Federal Confidentiality of Alcohol and Drug Abuse Patient Records regulations: The Federal rules restrict any use of the information to criminally investigate or prosecute any alcohol or drug abuse patient.[facility] HospitalIn the event this information is protected by the Federal Confidentiality of Alcohol and Drug Abuse Patient Records regulations: The Federal rules restrict any use of the information to criminally investigate or prosecute any alcohol or drug abuse patient.[facility] HospitalIn the event this information is protected by the Federal Confidentiality of Alcohol and Drug Abuse Patient Records regulations: The Federal rules restrict any use of the information to criminally investigate or prosecute any alcohol or drug abuse patient.[facility] HospitalIn the event this information is protected by the Federal Confidentiality of Alcohol and Drug Abuse Patient Records regulations: The Federal rules restrict any use of the information to criminally investigate or prosecute any alcohol or drug abuse patient.[facility] HospitalIn the event this information is protected by the Federal Confidentiality of Alcohol and Drug Abuse Patient Records regulations: The Federal rules restrict any use of the information to criminally investigate or prosecute any alcohol or drug abuse patient.[facility] HospitalIn the event this information is protected by the Federal Confidentiality of Alcohol and Drug Abuse Patient Records regulations: The Federal rules restrict any use of the information to criminally investigate or prosecute any alcohol or drug abuse patient.[facility] HospitalIn the event this information is protected by the Federal Confidentiality of Alcohol and Drug Abuse Patient Records regulations: The Federal rules restrict any use of the information to criminally investigate or prosecute any alcohol or drug abuse patient.[facility] HospitalIn the event this information is protected by the Federal Confidentiality of Alcohol and Drug Abuse Patient Records regulations: The Federal rules restrict any use of the information to criminally investigate or prosecute any alcohol or drug abuse patient.[facility] HospitalIn the event this information is protected by the Federal Confidentiality of Alcohol and Drug Abuse Patient Records regulations: The Federal rules restrict any use of the information to criminally investigate or prosecute any alcohol or drug abuse patient.[facility] HospitalIn the event this information is protected by the Federal Confidentiality of Alcohol and Drug Abuse Patient Records regulations: The Federal rules restrict any use of the information to criminally investigate or prosecute any alcohol or drug abuse patient.[facility] HospitalIn the event this information is protected by the Federal Confidentiality of Alcohol and Drug Abuse Patient Records regulations: The Federal rules restrict any use of the information to criminally investigate or prosecute any alcohol or drug abuse patient.[facility] HospitalIn the event this information is protected by the Federal Confidentiality of Alcohol and Drug Abuse Patient Records regulations: The Federal rules restrict any use of the information to criminally investigate or prosecute any alcohol or drug abuse patient.[facility] HospitalIn the event this information is protected by the Federal Confidentiality of Alcohol and Drug Abuse Patient Records regulations: The Federal rules restrict any use of the information to criminally investigate or prosecute any alcohol or drug abuse patient.[facility] HospitalIn the event this information is protected by the Federal Confidentiality of Alcohol and Drug Abuse Patient Records regulations: The Federal rules restrict any use of the information to criminally investigate or prosecute any alcohol or drug abuse patient.[facility] HospitalIn the event this information is protected by the Federal Confidentiality of Alcohol and Drug Abuse Patient Records regulations: The Federal rules restrict any use of the information to criminally investigate or prosecute any alcohol or drug abuse patient.[facility] HospitalIn the event this information is protected by the Federal Confidentiality of Alcohol and Drug Abuse Patient Records regulations: The Federal rules restrict any use of the information to criminally investigate or prosecute any alcohol or drug abuse patient.[facility] HospitalIn the event this information is protected by the Federal Confidentiality of Alcohol and Drug Abuse Patient Records regulations: The Federal rules restrict any use of the information to criminally investigate or prosecute any alcohol or drug abuse patient.[facility] HospitalIn the event this information is protected by the Federal Confidentiality of Alcohol and Drug Abuse Patient Records regulations: The Federal rules restrict any use of the information to criminally investigate or prosecute any alcohol or drug abuse patient.[facility] HospitalIn the event this information is protected by the Federal Confidentiality of Alcohol and Drug Abuse Patient Records regulations: The Federal rules restrict any use of the information to criminally investigate or prosecute any alcohol or drug abuse patient.[facility] HospitalIn the event this information is protected by the Federal Confidentiality of Alcohol and Drug Abuse Patient Records regulations: The Federal rules restrict any use of the information to criminally investigate or prosecute any alcohol or drug abuse patient.[facility] HospitalIn the event this information is protected by the Federal Confidentiality of Alcohol and Drug Abuse Patient Records regulations: The Federal rules restrict any use of the information to criminally investigate or prosecute any alcohol or drug abuse patient.[facility] HospitalIn the event this information is protected by the Federal Confidentiality of Alcohol and Drug Abuse Patient Records regulations: The Federal rules restrict any use of the information to criminally investigate or prosecute any alcohol or drug abuse patient.[facility] HospitalIn the event this information is protected by the Federal Confidentiality of Alcohol and Drug Abuse Patient Records regulations: The Federal rules restrict any use of the information to criminally investigate or prosecute any alcohol or drug abuse patient.[facility] HospitalIn the event this information is protected by the Federal Confidentiality of Alcohol and Drug Abuse Patient Records regulations: The Federal rules restrict any use of the information to criminally investigate or prosecute any alcohol or drug abuse patient.[facility] HospitalIn the event this information is protected by the Federal Confidentiality of Alcohol and Drug Abuse Patient Records regulations: The Federal rules restrict any use of the information to criminally investigate or prosecute any alcohol or drug abuse patient.[facility] HospitalIn the event this information is protected by the Federal Confidentiality of Alcohol and Drug Abuse Patient Records regulations: The Federal rules restrict any use of the information to criminally investigate or prosecute any alcohol or drug abuse patient.[facility] HospitalIn the event this information is protected by the Federal Confidentiality of Alcohol and Drug Abuse Patient Records regulations: The Federal rules restrict any use of the information to criminally investigate or prosecute any alcohol or drug abuse patient.[facility] HospitalIn the event this information is protected by the Federal Confidentiality of Alcohol and Drug Abuse Patient Records regulations: The Federal rules restrict any use of the information to criminally investigate or prosecute any alcohol or drug abuse patient.[facility] HospitalIn the event this information is protected by the Federal Confidentiality of Alcohol and Drug Abuse Patient Records regulations: The Federal rules restrict any use of the information to criminally investigate or prosecute any alcohol or drug abuse patient.[facility] HospitalIn the event this information is protected by the Federal Confidentiality of Alcohol and Drug Abuse Patient Records regulations: The Federal rules restrict any use of the information to criminally investigate or prosecute any alcohol or drug abuse patient.[facility] HospitalIn the event this information is protected by the Federal Confidentiality of Alcohol and Drug Abuse Patient Records regulations: The Federal rules restrict any use of the information to criminally investigate or prosecute any alcohol or drug abuse patient.[facility] FOR RECORDS PERTAINING TO PATIENTS WHO ARE OR HAVE BEEN ENROLLED IN A CHEMICAL DEPENDENCY/SUBSTANCEABUSE PROGRAM, SOME INFORMATION MAY BE OMITTED. This clinical summary was aggregated from multiple sources. Caution should be exercised in using it in the provision of clinical care. This summary normalizes information from multiple sources, and as a consequence, information in this document may materially change the coding, format and clinical context of patient data. In addition, data may be omitted in some cases. CLINICAL DECISIONS SHOULD BE BASED ON THE PRIMARY CLINICAL RECORDS. [facility] [email or web address] [facility]. provides no warranty or guarantee of the accuracy or completeness of information in this document.
[2023-03-30] MEDS: Ketorolac 15 MG/ML Vial IV (14:08)
[2023-03-30] MEDS: 0.9% Normal Saline (1000mL) 1,000 ML 999 ML IV (14:08)
[2023-03-30 14:17] LABS: Absolute Lymphocyte Count 0.54 X10^3/uL (0.83-4.51); Absolute Neutrophil Count 5.8 X10^3/uL (2.0-7.7); Basophil# 0.03 X10^3/uL; Basophil% 0.4 % (0-1); Eosinophil# 0.04 X10^3/uL; Eosinophils% 0.6 % (0-5); Hematocrit 38.6 % (37-47); Hemoglobin 12.2 g/dL (12.0-15.0); Lymphocyte # 0.54 X10^3/ul (0.83-4.51); Lymphocyte % 7.8 % (19-41); Mean Corp Hgb Conc 31.6 g/dL (32-36); Mean Corpuscular Volume 91.9 fL (81-99); Mean Platelet Vol. 8.7 fl (6.2-12.0); Monocyte# 0.32 X10^3/uL; Monocyte% 4.6 % (0-10); NRBC Flagged by Analyzer 0 % (0-5); Neutrophil # 5.83 X10^3/uL (2.7-7.7); Neutrophil % 84.6 % (47-70); POSITIVE DIFFERENTIAL YES; Platelet Count 274 K/mm3 (150-450); RBC Distribution Width CV 13.9 % (11.6-14.6); RBC Distribution Width SD 46.6 fl (35.1-43.9); White Blood Count 6.9 K/mm3 (4.4-11.0)
[2023-03-30 14:18] LABS: Differential Indicated SCAN CRITERIA MET
--- NOTE | 2023-03-30 14:20 | RAD_ITS ---
STUDY: X-RAY CHEST REASON FOR EXAM: Female, 27 years old. Cough with shortness of breath. TECHNIQUE: Single frontal view of the chest. COMPARISON: December 04, 2021 FINDINGS: The lungs are clear and expanded. There is no demonstrated pleural abnormality. Normal size heart. Normal mediastinum and flori. Normal visualized pulmonary arteries. Normal visualized aortic arch and descending thoracic aorta. Normal visualized thoracic spine. Normal visualized ribs, clavicles, and shoulders. No abnormality of the visualized soft tissue structures of the upper abdomen. RAD/Chest 1 View (Portable) IMPRESSION: No interval change and no acute or active cardiopulmonary disease. Electronically Signed: Rafael Martinez MD at 14:40 EST ,
[2023-03-30 14:29] LABS: Differential Comment SCANNED
[2023-03-30 14:35] LABS: Anion Gap 4 (5-15); BUN 9 mg/dL (7-18); BUN/Creat Ratio 10.7 RATIO (10-20); Chloride 108 mmol/L (98-107); Creatinine, Serum 0.84 mg/dL (0.55-1.02); EST Glomerular Filtration Rate 85 mL/min (>60); Est Glom Filt Rate - Afr Amer 103 mL/min (>60); Estimated Creatinine Clearance 179.87 ml/min; Glucose 101 mg/dL (74-106); Potassium 4.2 mmol/L (3.5-5.1); Sodium Level 136 mmol/L (136-145); Troponin-I HS < 3 pg/mL (3.0-54.0)
[2023-03-30 14:52] VITALS: BP 109/56; PULSE 100; RESP 20; O2SAT 93
[2023-03-30] MEDS: Oseltamivir Phosphate 75 MG Capsule PO (15:26)
== END 2023-03-30 15:28 | disposition home or self-care (01) ==
PROVIDERS: Emergency Provider Emergency Medicine; PCP Family Medicine; Visit Provider Emergency Medicine
DX: R05.9 Cough, unspecified (principal); R00.0 Tachycardia, unspecified; J10.1 Influenza due to other identified influenza virus with other respiratory manifestations
CPT/HCPCS: 71045; 80048; 84484; 85025; 87428; 93005; 96361; 96374; 99284; J7030; A4216

== ENCOUNTER → 2023-11-04 | Outpatient (CLI) | payer MEDICAID, SELFPAY ==
--- NOTE | 2023-11-04 10:49 | ECHOD_ITS ---
Reason For Study: PALPITATIONS Procedure This was a 2D Doppler, Color Flow transthoracic echocardiogram. Exam performed in department. Left Ventricle Normal LV size. Left ventricular systolic function is normal. The left ventricular ejection fraction is 60 %. No regional wall motion abnormalities noted. Right Ventricle Normal RV size. Normal systolic function. Atria Normal left atrium. Normal right atrium. Mitral Valve Normal mitral valve. Tricuspid Valve Normal tricuspid valve. Mild (1+) tricuspid valve insufficiency. Pulmonary artery systolic pressure is 34 mmHg. Aortic Valve Trisinus/trileaflet aortic valve. Pulmonic Valve Normal pulmonic valve. Great Vessels Normal aortic root. The pulmonary artery is normal size. Normal inferior vena cava. Pericardium/Pleural No pericardial effusion. MMode/2D Measurements & Calculations LVIDd: 4.8 cm IVSd: 0.74 cm Ao root diam: 2.4 cm LVIDs: 3.2 cm LVPWd: 0.93 cm RVDd: 3.0 cm FS: 33.6 % LAV(MOD-bp): 31.8 ml LVAd ap4: 26.6 cm2 SV(MOD-sp4): 52.4 ml LAV(MOD-bp) Indexed: 15.4 ml/m2 LVLd ap4: 7.4 cm LAV(MOD-sp2): 29.9 ml EDV(MOD-sp4): 78.5 ml LAV(MOD-sp4): 30.5 ml EDV(sp4-el): 81.4 ml LVAs ap4: 14.0 cm2 LVLs ap4: 6.3 cm ESV(MOD-sp4): 26.1 ml ESV(sp4-el): 26.3 ml EF(MOD-sp4): 66.8 % EF(sp4-el): 67.7 % SV(sp4-el): 55.0 ml LA A4 area: 13.6 cm2 LA dimension(2D): 3.4 cm RA A4 area: 11.5 cm2 TAPSE: 1.9 cm Time Measurements MV dec time: 0.19 sec Doppler Measurements & Calculations MV E max cole: 88.3 cm/sec Lat Peak E' Cole: 16.2 cm/sec Med Peak E' Cole: 13.7 cm/sec MV A max cole: 55.8 cm/sec E/E' lat: 5.5 E/E' med: 6.4 MV E/A: 1.6 Ao V2 max: 146.9 cm/sec LV V1 max: 130.1 cm/sec PA V2 max: 127.9 cm/sec Ao max P.6 mmHg LV V1 max P.8 mmHg TR max cole: 272.4 cm/sec TR max P.7 mmHg ECHO/Echo Complete Interpretation Summary Normal LV size. Left ventricular systolic function is normal. The left ventricular ejection fraction is 60 %. Pulmonary artery systolic pressure is 34 mmHg. Structurally normal valves. Ordering Physician: Edwin Biswas Referring Physician: SONIDO DOHERTY Performed By: Corin Camacho RDCS
== END | disposition home or self-care (01) ==
LOC: CVS 10:45
PROVIDERS: PCP Family Medicine; Referring Provider Internal Medicine Cardiovascular Disease; Visit Provider Internal Medicine Cardiovascular Disease
DX: R00.2 Palpitations (principal)
CPT/HCPCS: 93306

== ENCOUNTER → 2024-06-13 | Outpatient (CLI) | payer MEDICAID, SELFPAY ==
[2024-06-13 15:36] LABS: Absolute Lymphocyte Count 3.17 X10^3/uL (0.83-4.51); Absolute Neutrophil Count 8.1 X10^3/uL (2.0-7.7); Basophil# 0.05 X10^3/uL; Basophil% 0.4 % (0-1); Eosinophil# 0.14 X10^3/uL; Eosinophils% 1.1 % (0-5); Hematocrit 42.4 % (37-47); Hemoglobin 13.7 g/dL (12.0-15.0); Lymphocyte # 3.17 X10^3/ul (0.83-4.51); Lymphocyte % 25.9 % (19-41); Mean Corp Hgb Conc 32.3 g/dL (32-36); Mean Corpuscular Hgb 29.3 pg (27.0-32.0); Mean Corpuscular Volume 90.6 fL (81-99); Mean Platelet Vol. 8.7 fl (6.2-12.0); Monocyte# 0.61 X10^3/uL; NRBC Flagged by Analyzer 0 % (0-5); Neutrophil # 8.14 X10^3/uL (2.7-7.7); Neutrophil % 66.5 % (47-70); Platelet Count 385 K/mm3 (150-450); RBC Distribution Width CV 13.7 % (11.6-14.6); Red Blood Count 4.68 M/mm3 (4.2-5.4); White Blood Count 12.3 K/mm3 (4.4-11.0)
[2024-06-13 16:33] LABS: ALB/GLOB Ratio 0.9 RATIO (0.9-2.4); AST(SGOT) 25 U/L (<=31); Alanine Aminotransfer ALT/SGPT 28 U/L (<=34); Albumin, Serum 3.9 g/dL (3.5-5.0); Alkaline Phosphatase 121 U/L (35-104); Anion Gap 10 (5-15); BUN 10 mg/dL (4-19); BUN/Creat Ratio 14.6 RATIO (10-20); Calcium,Total 9.2 mg/dL (7.6-11.0); Carbon Dioxide 23.6 mmol/L (21.0-32.0); Chloride 104 mmol/L (98-108); Creatinine, Serum 0.69 mg/dL (0.70-1.20); EST Glomerular Filtration Rate 120 (>60); Globulin 4.2 g/dL (2.2-4.2); Glucose 91 mg/dL (70-99); Sodium Level 137 mmol/L (133-145); Total Bilirubin 0.27 mg/dL (0.00-1.30)
== END | disposition home or self-care (01) ==
LOC: LAB 15:04
PROVIDERS: Referring Provider Nurse Practitioner Family; Visit Provider Nurse Practitioner Family
DX: R00.2 Palpitations (principal); R53.83 Other fatigue; E03.9 Hypothyroidism, unspecified
CPT/HCPCS: 36415; 80053; 84443; 85025

== ENCOUNTER → 2024-07-25 | Outpatient (CLI) | payer MEDICAID, SELFPAY ==
[2024-07-28 11:08] LABS: HPV APTIMA, High Risk Negative (Negative)
== END | disposition home or self-care (01) ==
LOC: LAB 16:32 → LABSPEC 16:36
PROVIDERS: Referring Provider Advanced Practice Midwife; Visit Provider Advanced Practice Midwife
DX: Z12.4 Encounter for screening for malignant neoplasm of cervix (principal); N89.8 Other specified noninflammatory disorders of vagina
CPT/HCPCS: 87070; 87205; 87624; 88175; G0145

== ENCOUNTER → 2024-09-29 | Outpatient (CLI) | payer MEDICAID, SELFPAY ==
--- OUTSIDE RECORDS SUMMARY | 2024-09-29 23:11 | XMS RPT_ITS | CCD ---
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 in unspecified upper arm] Episodic Other diseases of veins and lymphatics (20 sources) Chronic acquired lymphedema; Translations: [Lymphedema, not elsewhere classified] Onset: 07-21-2022 Chronic Other female genital disorders (2 sources) Vaginal odor; Translations: [Other specified noninflammatory disorders of vagina] 07-25-2024 Episodic Other female genital disorders (1 source) Other specified noninflammatory disorders of vagina; Translations: [Other specified noninflammatory disorders of vagina] Onset: 07-25-2024 Episodic Other hematologic conditions (11 sources) ESR raised; Translations: [Elevated erythrocyte sedimentation rate] Episodic Other injuries and conditions due to external causes (11 sources) Closed injury of head; Translations: [Unspecified injury of head, initial encounter] 06-16-2015 Episodic Other lower respiratory disease (13 sources) Dyspnea; Translations: [Dyspnea, unspecified] Episodic Other lower respiratory disease (2 sources) Dyspnea on exertion; Translations: [Other forms of dyspnea] Episodic Other lower respiratory disease (2 sources) Other nonspecific abnormal finding of lung field; Translations: [Other nonspecific abnormal finding of lung field] Episodic Other lower respiratory disease (3 sources) Wheezing; Translations: [Wheezing] Episodic Other nervous system disorders (4 sources) Pain in limb - multiple; Translations: [Paresthesia of skin] 09-13-2022 Episodic Other nervous system disorders (4 sources) Paresthesia of left lower limb; Translations: [Paresthesia of skin] 09-13-2022 Episodic Other non-traumatic joint disorders (1 source) Joint swelling; Translations: [Effusion, unspecified joint] Episodic Other non-traumatic joint disorders (5 sources) Multiple joint pain; Translations: [Pain in unspecified joint] Episodic Other non-traumatic joint disorders (1 source) Bilateral pain of joint of hands; Translations: [Pain in joints of right hand] Episodic Other non-traumatic joint disorders (4 sources) Pain in right shoulder; Translations: [Right shoulder pain] Onset: 09-16-2024 09-16-2024 Episodic Other nutritional; endocrine; and metabolic disorders [...] conditions (not mental disorders or infectious disease) (10 sources) Plain X-ray result abnormal; Translations: [Abnormal findings on diagnostic imaging of other specified body structures] Chronic Other screening for suspected conditions (not mental disorders or infectious disease) (7 sources) Elevated C-reactive protein; Translations: [Elevated C-reactive protein (CRP)] Onset: 07-28-2024 Episodic Other skin disorders (1 source) Bilateral localized swelling of lower legs; Translations: [Localized swelling, mass and lump, lower limb, bilateral] Episodic Other skin disorders (2 sources) Eruption; Translations: [Rash and other nonspecific skin eruption] Episodic Other upper respiratory infections (5 sources) Sore throat symptom; Translations: [Acute pharyngitis, unspecified] Episodic Otitis media and related conditions (3 sources) Acute right otitis media; Translations: [Otitis media, unspecified, right ear] Onset: 08-23-2024 Episodic Residual codes; unclassified (11 sources) Pain; Translations: [Pain, unspecified] 01-29-2022 Episodic Residual codes; unclassified (11 sources) Gestation period, 28 weeks; Translations: [28 weeks gestation of ] 01-24-2022 Episodic Residual codes; unclassified (11 sources) Gestation period, 41 weeks; Translations: [41 weeks gestation of ] 01-24-2022 Episodic Residual codes; unclassified (2 sources) Edema; Translations: [Edema, unspecified] Episodic Residual codes; unclassified (1 source) FH: Cardiomyopathy; Translations: [Family history of ischemic heart disease and other diseases of the circulatory system] Episodic Residual codes; unclassified (1 source) Family history of hereditary disease; Translations: [Family history of other specified conditions] Episodic Residual codes; unclassified (4 sources) Edema, generalized; Translations: [Generalized edema] Episodic Residual codes; unclassified (5 sources) Peripheral edema; Translations: [Localized edema] 06-07-2022 Episodic Residual codes; unclassified (4 sources) Past history of procedure; Translations: [Other specified postprocedural states] 09-05-2022 Episodic Skin and subcutaneous tissue infections (3 sources) Cellulitis; Translations: [Cellulitis, unspecified] 10-27-2022 Episodic Sprains and strains (20 sources) Strain of back muscle; Translations: [Strain of muscle, fascia and tendon of lower back, initial encounter] 04-08-2019 Episodic Superficial injury; contusion (11 sources) Bruised sole; Translations: [Contusion of unspecified foot, initial encounter] 04-30-2020 Episodic Syncope (2 sources) Near syncope; Translations: [Syncope and collapse] Episodic Thyroid disorders (20 sources) Acquired hypothyroidism; Translations: [Hypothyroidism, unspecified] Onset: 07-12-2021 Chronic Unclassified (1 source) OPENED IN ERROR Unclassified (2 sources) Right shoulder pain; Translations: [M25.511 - Pain in right shoulder] Past or Other Problems Problem Classification Problem Date Documented Da te Episodic/Chronic Acquired foot deformities (20 sources) Talipes cavus; Translations: [Congenital pes cavus, unspecified foot] Onset: 07-12-2021 Episodic Cardiac dysrhythmias (20 sources) Tachycardia; Translations: [Tachycardia, unspecified] Onset: 03-28-2022 Episodic Malaise and fatigue (9 sources) Malaise and fatigue; Translations: [Other malaise] Onset: 06-13-2024 Episodic Other connective tissue disease (20 sources) Swelling of hand; Translations: [Other specified soft tissue disorders] Onset: 07-21-2022 Episodic Other connective tissue disease (20 sources) Swelling of lower limb; Translations: [Other specified soft tissue disorders] Onset: 07-21-2022 Episodic Other inflammatory condition of skin (20 sources) Inflammatory dermatosis; Translations: [Lichen simplex chronicus] Onset: 11-21-2018 11-21-2018 Episodic Other inflammatory condition of skin (20 sources) Prurigo nodularis; Translations: [Prurigo nodularis] Onset: 11-21-2018 11-21-2018 Episodic Results Test Name Value Interpretation Reference Range Facility Orthopedic Visit Reporton Orthopedic Visit Report [facility] [address] [place] [address] OFFICE VISIT Date of Service: 09/16/24 MR#: [id number] Acct: [id number] Name: LAKSHMI MCGEE ESVIN Rep #: [id number] : 1995 Provider: Dr. Espinoza peguero MD Age/Sex: 28/F Location: [facility] [place] Status: Signed with Addenda ADDENDUM by LAMAR Campa on 09/16/24 at 1435 Office Procedure Documentation entered by Naheed Campa MA 09/16/24 14:35: Ortho Injections Injections Yes Subacromial Injection Right Is this a patient provided medication?: No Details: Obtained consent for injection. Under sterile conditions, injected the patients [] with []. The patient tolerated the injection well without any noted complication. Patient should call our office if redness develops, pain worsens or if they have any concerns. Office Meds Kenalog 40 mg/mL suspension for injection Performing Provider: Espinoza Hernadez MD Performing Location: [facility] Administered by: Espinoza Hernadez MD on 09/16/24 14:33 Dose Route Admin Location Dispensed Lot Number Expiration Date NICHOLAS Flower ufacturer 40 mg intra-articular Right shoulder 1 mL [id number] 10/28/26 [id number] [facility] Date cc: * Signed Intake Vital Signs 07/25/24 12:37 09/16/24 14:16 Height 4 ft 11 in 4 ft 11 in Weight: 258 lb 8 oz BMI 52.2 Intake Visit Reasons: RIGHT SHOULDER Chief Complaint: Right Shoulder Pain Accompanied by: Self Is patient in pain?: Yes Pain scale (1-10): 3 Allergies megestrol Allergy (Verified 09/16/24 14:17) shortness of breath, hives azithromycin Adverse Reaction (Intermediate, Verified 09/16/24 14:17) Upset Stomach Medications ???Medication ???Instructions ???Recorded ???Confirmed ???Type sertraline 100 mg tablet 100 mg PO DAILY depression #30 tab s 06/13/24 09/16/24 Rx cholecalciferol (vitamin D3) 25 25 mcg PO QDAY 06/14/24 09/16/24 H istory mcg (1,000 unit) capsule levothyroxine 88 mcg tablet 88 mcg PO QDAY #30 tabs 08/08/24 0 09/16/24 Rx metoprolol succinate 50 mg 50 mg PO QDAY #90 tabs 09/12/24 Rx tablet,extended release 24 hr amoxicillin 875 mg-potassium 1 tab PO BID 09/16/24 09/16/24 His tory clavulanate 125 mg tablet ketorolac 10 mg tablet 10 mg PO Q8 PRN pain 09/16/2408/29 History PFSH Medical History Right shoulder pain Hives Chronic headache Allergies Chest pain Pes cavus Obesity, Class III, BMI 40-49.9 (morbid obesity) Anxiety and depression Hypothyroid Surgical History Hx of ovarian cyst Hx of laparoscopy H/O section Family History Grandmother Cancer Social History adopted: No household members: family housing: house number of children: 1 current occupational status: unemployed current occupation: [employer] pets and animals: Yes (chickens) history of recent travel: No sexually active: Yes Smoking Status: Never smoker second hand exposure: Yes alcohol intake: never substance use type: does not use well-balanced diet: about half the time caffeine: Yes Type: coffee Number of servings: 1 eating out: other details: 2/ month during the past year weight has: remained stable what type of physical activity do you participate in: walking frequency: 1-2 times per week duration: < 15 minutes/day obdulia/sabianism: None seatbelt use: always do you feel safe at home: Yes additional social history: - Markel HPI RIGHT SHOULDER Details: This documentation accurately reflects the service provided and the decisions made by me, Dr. Espinoza Hernadez MD 09/16/24 1027. Part of today???s visit was documented by [ ], acting as scribe. LAKSHMI MCGEE is a 28 year old F here today for right shoulder pain. 3 weeks ago. had prior MRI 7 years ago. did PT. had a rotator cuff tear apparently. healed with PT. no injections. had a fall onto the elbow tripped on sandals at home. superior and posterior pain. icing and pain medications. RHD. 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 sometimes some night time symptoms. Supplemental Info X-rays from [facility] date of service 09/11/2024 right shoulder complete minimum 2 views no acute disease. No significant arthropathy or acute abnormality I independently reviewed the imaging. Concur with radiologist report. Coding Level of Care Code Attention Martine Diagnoses Right shoulder pain M25.511 Comment [id number] and CPT inject major joint Assessment and Plan Assessment and Plan (1) Right shoulder pain: Status: Acute Pl (more content not included)... Normal [facility] ED MED ADMINISTRATION DETAIL on 09-12-2024 ED MED ADMINISTRATION DETAIL Supervisor Rolling Room Medication Administration Record [address] [address] [id number] 09/11/2024 Patient: LAKSHMI MCGEE Sex: Female : 1995 Age: 28y MEASUREMENTS: Wt: 117.9 kg, Ht/Joshua: 59.0 in, BMI: 52.51 ALLERGIES: Metastron, azithromycin Medication Ordered Medication Administration Date/Time ketorolac (Toradol) 19:27 09/11 ketorolac (Toradol) PO 10 mg given. Allergies verified Given PO 10 mg (NOW x1) and confirmed 5 rights. Information reviewed with patient. - 19:28 19:27 09/11/2024 Sudhakar Espinoza R.N. Scanned 20:12 09/11 Medication Response: The patient feels the same. - 20:12 Dayanara Noriega R.N. 1 of 1 Normal [facility] ED NURSES CLINICAL NOTEon ED NURSES CLINICAL NOTE Nurse Narrative Nurse Clinical Narrative [address] [address] [id number] 09/11/2024 18:09:00 Patient: LAKSHMI MCGEE Sex: Female : 1995 Age: 28y Disposition: Discharge to Home Disposition Decision Time: 19:56 09/11/2024 Departure Time: 20:13 09/11/2024 TRIAGE Arrived by private vehicle. Historian: (patient). Primary physician (Tulio). Triage time: 18:11 09/11/2024. Acuity: LEVEL 4. Chief Complaint: RIGHT UPPER EXTREMITY PAIN. Alert. No acute distress. No injury occurred. This started yesterday. ( treated at urgent care thursday for ear infection and started on ATB). The patient has had weakness. SEPSIS SCREEN: NEGATIVE. SIRS criteria negative. SEVERE SEPSIS SCREEN NEGATIVE. No signs of organ dysfunction present. -- 18:16 09/11/24 EDT Kamilla Alves R.N. 18:15 09/11/24. BP: 131/77 MAP: 95. HR: 107. RR: 20. O2 saturation: 98% Temperature: 99.6 F. Pain level now 12/07. -- 18:16 09/11/24 EDT Kamilla Alves R.N. Measurements: 18:15 09/11/24 Wt: 117.9 kg, Ht/Joshua: 59.0 in, BMI: 52.51 -- 18:15 09/11/24 EDT Kamilla Alves R.N. Medications: levothyroxine 88 mcg tablet -- 18:18 09/11/24 EDT Kamilla Alves R.N. 1 of 4 Nurse Narrative amoxicillin 875 mg-potassium clavulanate 125 mg tablet -- 18:18 09/11/24 EDT Kamilla Alves R.N. cholecalciferol (vitamin D3) 25 mcg (1,000 unit) tablet -- 18:18 09/11/24 EDT Kamilla Alves R.N. metoprolol tartrate 50 mg tablet -- 18:18 09/11/24 EDT Kamilla Alves R.N. sertraline 100 mg tablet -- 18:18 09/11/24 EDT Kamilla Alves R.N. 18:11 09/11/24. Preferred Pharmacy: ([facility]). -- 18:16 09/11/24 EDT Kamilla Alves R.N. Allergies: azithromycin -- 18:13 09/11/24 EDT Kamilla Alves R.N. Metastron -- 18:13 09/11/24 EDT Kamilla Alves R.N. Problems: Tachycardia -- 18:13 09/11/24 EDT Kamilla Alves R.N. Surgeries: Laparoscopy -- 18:13 09/11/24 EDT Kamilla Alves R.N. -- 18:14 09/11/24 EDT Kamilla Alves R.N. Esophagogastroduodenoscopy -- 18:14 09/11/24 EDT Kamilla Alves R.N. History 18:11 09/11/24. PAST MEDICAL HX: Immunizations: up-to-date. SOCIAL HX: Never smoker. No alcohol use or drug use. The patient has not traveled outside the [place] Infectious disease exposure: No infectious disease exposure. ABUSE ASSESSMENT: Abuse denied. No suspicion of abuse. SELF HARM ASSESSMENT: Self harm assessment was performed. The patient answered no to the question(s) Have you recently felt down, depressed, or hopeless? and Do you have thoughts of harming or killing yourself?. FALL RISK ASSESSMENT: Fall risk assessment completed. No risk factors identified. -- 18:16 09/11/24 EDT Kamilla Alves R.N. 2 of 4 Nurse Narrative Interventions 18:11 09/11/24. Identification band on patient. To treatment room. Advanced care plan. Patient does not have advanced directive. -- 18:16 09/11/24 EDT Kamilla Alves R.N. PHYSICAL ASSESSMENT 18:57 09/11/24. GENERAL / NEURO / PSYCH: Oriented X 4. Alert. Appears in no acute distress. ( PT arrives ambulatory to ER#4 c/o right shoulder pain, denies any injury, pt offers she thinks she slept wrong. PT is painful to the front of the shoulder and with any movement. There is no obvious deformity, pt states altered sensation and numbness to the right hand, 2+ pulses intact.). The patient has numbness. EXTREMITIES: Limited ROM present. Right shoulder: tenderness located in the anterior and lateral aspect of the shoulder. Limited ROM due to pain (diminished abduction, adduction, flexion and extension). No swelling, ecchymosis, laceration, abrasion or puncture wound. No foreign body or deformity. SKIN: Skin intact. Skin is warm and dry. -- 19:07 09/11/24 EDT Marie Prince R.N. NURSING PROGRESS NOTES 19:15 09/11/24. Care transferred and report received (Kimberly). -- 19:33 09/11/24 EDT Dayanara Noriega R.N. 19:25 09/11/24. Call light placed in reach. Side rails up x 1. Bed placed in lowest position. Brakes of bed on. ( Pt medicated as ordered. Pt is unable move right shoulder/arm.). -- 19:44 09/11/24 EDT Dayanara Noriega R.N. 19:27 09/11/24. ketorolac (Toradol) PO 10 mg given. Allergies verified and confirmed 5 rights. Information reviewed with patient. -- 19:28 09/11/24 EDT Dayanara Noriega R.N. 19:35 09/11/24. Patient walked to radiology with automobile technician. -- 19:53 09/11/24 EDT Dayanara Noriega R.N. 19:40 09/11/24. Patient walked back from radiology with automobile technician. -- 19:53 09/11/24 EDT Dayanara Noriega R.N. 20:03 09/11/24. ( sling to right arm applied as ordered.). -- 20:13 09/11/24 EDT Dayanara Noriega R.N. 20:12 09/11/24. ketorolac (Toradol) PO: Medication Response. The patient feels the same. -- 20:12 09/11/24 EDT Dayanara Noriega R.N. DISPOSITION / DISCHARGE Departure time: 20:13 09/11/2024. Condition at departure: stable. Discharge instructions (more content not included)... Normal [facility] ED ORDER SHEET (CPOE ONLY)on 09-12-2024 ED ORDER SHEET (CPOE ONLY) Order Sheet Order Sheet [address] [place] [address] [id number] 09/11/2024 Patient: LAKSHMI MCGEE Sex: Female : 1995 Age: 28y MEASUREMENTS: Wt: 117.9 kg, Ht/Joshua: 59.0 in, BMI: 52.51 ALLERGIES: Metastron, azithromycin MEDICATION/IV/DRIP/FLUID ORDERS Order Description Priority Entered Acknowledged Completed ketorolac (Toradol) PO10 mg 19:10 09/11/2024 19:23 19:28 (NOW x1) Pawan Hurtado D.O. 09/11/2024 09/11/2024 Dayanara Espinoza R.N. R.N. Reason for ordering with alerts: Clinical consideration given --19:09/11/2024 Pawan Hurtado D.O. LAB ORDERS Order Description Priority Entered Acknowledged Collected Completed DIAGNOSTIC STUDY ORDERS Order Description Priority Entered Acknowledged Completed Shoulder R Complete Stat Stat 19:10 09/11/2024 19:23 19:29 Pawan Hurtado D.O. 09/11/2024 09/11/2024 Dayanara Espinoza R.NMishel RMishelNMishel Order Comments: 19:10 09/11/2024: Status: Not . Pawan Hurtado D.O. Reason for Study: Pain 1 of 2 Order Sheet STAFF ORDERS Order Description Priority Entered Acknowledged Collected Completed Arm Sling 19:56 09/11/2024 20:04 09/11/2024 20:12 09/11/2024 Marium Powell Debra Schrock, R.N. RTita Order Comments: 19:56 09/11/2024: (right arm) Pawan Hurtado D.O. [Electronically signed by Pawan Hurtado D.O. (09/11/2024 21:39 EDT)] 2 of 2 Normal [facility] ED PHYSICIAN CLINICAL REPORT on 09-12-2024 ED PHYSICIAN CLINICAL REPORT Narrative Physician Clinical Narrative [address] [place] [address] [id number] 09/11/2024 18:09:00 Patient: LAKSHMI MCGEE Sex: Female : 1995 Age: 28y Disposition: Discharge to Home Disposition Decision Time: 19:56 09/11/2024 Departure Time: 20:13 09/11/2024 Measurements Wt: 117.9 kg, Ht/Joshua: 59.0 in, BMI: 52.51 Initial Vital Sign Measured Time BP MAP HR RR O2Sat ETCO2 Temp Pain GCS RTS 18:15 09/11/2024 131/77 95 107 20 98% 99.6 F 9 Time Seen: 18:51 09/11/2024. Arrived- By private vehicle. Historian- patient. HISTORY OF PRESENT ILLNESS Chief Complaint: Injury to right shoulder. The injury happened yesterday. Twisting injury. Occurred at home. Patient is experiencing moderate pain. No other injury. REVIEW OF SYSTEMS SKIN: No suspected foreign body or skin laceration. NEUROLOGICAL: No tingling, numbness or weakness. MUSCULOSKELETAL: No swelling. Status: Not . 1 of 4 Narrative PAST HISTORY See nurses notes. Tachycardia Surgeries: Esophagogastroduodenoscopy Laparoscopy Medications: amoxicillin 875 mg-potassium clavulanate 125 mg tablet cholecalciferol (vitamin D3) 25 mcg (1,000 unit) tablet levothyroxine 88 mcg tablet metoprolol tartrate 50 mg tablet sertraline 100 mg tablet Allergies: azithromycin Metastron SOCIAL HISTORY Never smoker. No alcohol use or drug use. ADDITIONAL NOTES The nursing notes have been reviewed. PHYSICAL EXAM Appearance: Alert. Oriented X3. No acute distress. Head: Head atraumatic. Eyes: Pupils equal, round and reactive to light. ENT: Ears normal. Nose normal. Pharynx normal. Neck: Normal inspection. Neck supple. C-spine non-tender. CVS: Normal heart rate and rhythm. Heart sounds normal. Pulses normal. 2 of 4 Narrative Respiratory: No respiratory distress. Breath sounds normal. Chest nontender. Abdomen: No visible injury. Soft and nontender. Bowel sounds normal. No mass. Back: No tenderness. ROM normal. Skin: Skin intact. Skin warm and dry. Extremities: Right shoulder: moderate tenderness located in the anterior and lateral aspect of the shoulder and humeral head. Limited ROM (diminished abduction and adduction). Neurovascular intact distally. No erythema, swelling, laceration, abrasion or ecchymosis. No puncture wound, foreign body, deformity or open wound communicating with joint space. No avulsion. No joint effusion. Extremities otherwise negative. Neuro, Vascular and Tendons: Sensation intact. Motor intact. Vascular status intact. Tendon function intact. Neuro: Oriented X 3. No motor deficit. No sensory deficit. Reflexes normal. (Good bilateral brachioradialis reflexes. Brisk. +2/4 bilaterally. Hand fringe weaver is strong symmetric.). LABS, X-RAYS, AND EKG X-Rays: Right shoulder negative. PROGRESS AND PROCEDURES MEDICAL DECISION MAKING: Ordered tests include x-rays of the extremities. The patient has been stable. Non-narcotics were given. (28-year-old white female complaining of diffuse right shoulder pain that started yesterday. Pain was worse today. She rates her pain as an 8 on a severity scale 1-10. Describes the pain as sharp in nature. The pain is worse with movement. She has complained of some intermittent numbness and tingling to the digits of her right hand. She states she may have twisted it yesterday. Or slept on it wrong but she is not exactly sure. She states she did have this same type of pain about 3 or 4 years ago but never sought any medical treatment for it and it resolved on its own but she does remember it making it difficult to take care of her child because the arm and shoulder would hurt more with movement so her mother was helping her. This time today she had trouble brushing her hair and thinks because the right shoulder movement hurts enough and she was concerned so she presents here for the evaluation. She did start Augmentin a couple days ago for bilateral ear infections. I did look in her ears. The right tympanic membrane might be slightly erythematous the left is not she. She was concerned it the antibiotic might be causing these symptoms with her shoulder.). Disposition: Condition: good. Disposition Decision Time: 19:56 09/11/2024. Patient discharged to Home. Discharged in good condition. Discharge decision based on the following: patient's condition is stable; patient is ambulatory; patient's pain is controlled; patient's exam is stable; no seriously abnormal test results; stable condition on multiple repeat evaluations; social support is adequate; transportation is available; follow-up is available; clinical impression is consistent with outpatient treatment. 3 of 4 Narrative CLINICAL IMPRESSION Sprain of the right rotator cuff. DISCHARGE INSTRUCTIONS Wear sling (more content not included)... Normal [facility] ED SUPER BILLon 09-12-[address] [address] [id number] 09/11/2024 Patient: LAKSHMI MCGEE Sex: Female : 1995 Age: 28y Item Professional Category Description Facility Code Code Quantity Fee Total Nurse/E/M EMERGENCY 430612 1 $0.00 $0.00 DEPARTMENT VISIT MODERATE SEVERITY (95129-69) Grand Total $0.00 Providers Pawan Hurtado D.O. Chief Complaint Injury to right shoulder. Principal Diagnosis Sprain of the right rotator cuff. ICD-10 Codes [address] of [address] [facility] S43.421A: Sprain of right rotator cuff capsule, initial encounter 2 of 2 Normal [facility] ED VISIT SUMMARYon ED VISIT SUMMARY Visit Overview Visit Overview [address] [place] [address] [id number] 09/11/2024 Patient: LAKSHMI MCGEE Sex: Female : 1995 Age: 28y 09/12/2024 07:05 PM EDT ED Arrival:18:09 09/11/2024 EDT Status:not Recent Travel:no Language:eng Adv Directive:No Isolation Status: Ethnicity:N Fall Risk:no risk Infectious Disease Exposure:no Measurements:4'11 / 149.9 Self-Harm Status:no risk Sepsis Screen:negative cm 260.0 lb / 117.9 kg Chief Complaint:RIGHT UPPER EXTREMITY PAIN, (Antunez), and (treated at urgent care thursday for ear infection and started on ATB) ALLERGIES azithromycin Metastron HOME MEDICATIONS amoxicillin 875 mg-potassium clavulanate 125 mg tablet cholecalciferol (vitamin D3) 25 mcg (1,000 unit) tablet levothyroxine 88 mcg tablet 1 of 3 Visit Overview metoprolol tartrate 50 mg tablet sertraline 100 mg tablet PAST MEDICAL HISTORY / PROBLEMS Immunizations: up-to-date See nurses notes Tachycardia PAST SURGICAL HISTORY Esophagogastroduodenoscopy Laparoscopy SOCIAL HISTORY Smoking status: No Alcohol use: No Drug use: No ED COURSE MEDICATIONS GIVEN IN EMERGENCY DEPARTMENT 19:27 09/11/24 ketorolac (Toradol) PO 10 mg IV SITE INFORMATION INTAKE OUTPUT REASSESMENT (most recent) 2 of 3 Visit Overview 18:57 09/11/24. GENERAL / NEURO / PSYCH: Oriented X 4. Alert. Appears in no acute distress. ( PT arrives ambulatory to ER#4 c/o right shoulder pain, denies any injury, pt offers she thinks she slept wrong. PT is painful to the front of the shoulder and with any movement. There is no obvious deformity, pt states altered sensation and numbness to the right hand, 2+ pulses intact.). The patient has numbness. EXTREMITIES: Limited ROM present. Right shoulder: tenderness located in the anterior and lateral aspect of the shoulder. Limited ROM due to pain (diminished abduction, adduction, flexion and extension). No swelling, ecchymosis, laceration, abrasion or puncture wound. No foreign body or deformity. SKIN: Skin intact. Skin is warm and dry. VITAL SIGNS First Vitals Last Vitals Temp 18:15 09/11/24 99.6 F Temp 18:15 09/11/24 99.6 F BP 18:15 09/11/24 131/77 BP 18:15 09/11/24 131/77 HR 18:15 09/11/24 107 HR 18:15 09/11/24 107 RR 18:15 09/11/24 20 RR 18:15 09/11/24 20 O2 Sat 18:15 09/11/24 98% O2 Sat 18:15 09/11/24 98% Pain 18:15 09/11/24 9 Pain 18:15 09/11/24 9 ETCO2 18:15 09/11/24 ETCO2 18:15 09/11/24 GCS 18:15 09/11/24 GCS 18:15 09/11/24 RTS 18:15 09/11/24 RTS 18:15 09/11/24 PROCEDURES NURSING INTERVENTIONS LABS / STUDIES LABS / STUDIES ORDERED Shoulder R Complete LABS / STUDIES PENDING IMPORT SHOULDER COMPLETE RT CLINICAL IMPRESSION SPRAIN OF THE RIGHT ROTATOR CUFF 3 of 3 Normal [facility] ED VITALS FLOW SHEETon 09-12 ED VITALS FLOW SHEET Vitals Vital Sign Flow Sheet [address] [address] [id number] 09/11/2024 Patient: LAKSHMI MCGEE Sex: Female : 1995 Age: 28y Measurements Wt: 117.9 kg, Ht/Joshua: 59.0 in, BMI: 52.51 Measured Time BP MAP HR RR O2Sat ETCO2 Temp Pain GCS RTS 18:15 09/11/2024 131/77 95 107 20 98% 99.6 F 9 1 of 1 Normal [facility] SHOULDER COMPLETE RTon 09-11 SHOULDER COMPLETE RT [address] [address] Patient: LAKSHMI MCGEE Phone#: : 1995 Age: 28 Gender: F Pt. Type: ER Account: [id number] Location: 2 Ordering: PAWAN HURTADO Exam Date: 09/11/2024/19:29 Family Phys: TRINH ALMEIDA Charge Code: 555447 Physician: [place] Order #: [id number] Dose#: PROCEDURE: X-RAY SHOULDER COMPLETE RT MIN 2 VIEWS COMPARISON: None. INDICATIONS: Trauma. FINDINGS: BONES: Normal. No significant arthropathy or acute abnormality. SOFT TISSUES: Negative. No visible soft tissue swelling. EFFUSION: None visible. OTHER: Negative. CONCLUSION: No acute disease. Dictated by: Aletha Mckeon MD on 09/11/2024 at 23:51 Approved by: Aletha Mckeon MD on 09/11/2024 at 23:53 Normal [facility] CNOVon 08-23-2024 [facility] LAKSHMI [facility]CGEE ([id number]) 1995 F Date Time Provider Department 08/23/24 11:30 AM HELENE MIRANDA [facility] During your visit today, we recorded the following information about you: Temperature Pulse Respiration Blood pressure 98.4 degrees 85/minute 18/minute 110/76 Weight 120 kg Helene Miranda APRN.[facility] 08/23/2024 12:11 PM Signed [facility] Subjective Lakshmi Mcgee is a 28 year old female. Patient presents with: Ear Pain: Left ear pain and GORDON x 1 week Patient complains of left ear pain and headache for the last 8 days. Patient states that the headache started after the ear pain and she is currently taking 500 mg of tylenol twice a day. Pain is rated 7-8/10. Patient reports she has had ear infections in the past but not within the last year. Patient has seasonal allergies but has not taken any allergy medication. Denies vision changes, head trauma, nausea, and vomiting. Ear Pain Associated symptoms include headaches. Pertinent negatives include no nausea, sore throat or vomiting. Review of Systems HENT: Positive for ear pain. Negative for ear discharge, hearing loss, sinus pressure and sore throat. Gastrointestinal: Negative for nausea and vomiting. Neurological: Positive for headaches. Negative for dizziness. PAST MEDICAL HISTORY Diagnosis Date Depression Hypothyroidism, acquired 07/12/2021 Obesity, Class III, BMI 40-49.9 (morbid obesity) 02/22/2021 Pes cavus 07/12/2021 PAST SURGICAL HISTORY Procedure Laterality Date CYST/MOLE [facility]IC[facility] INJ Bilateral 09/04/2022 ALLERGIES Azithromycin and Megestrol MEDICATIONS Cholecalciferol, Vitamin D3, 25 mcg (1,000 unit) cap take 1 capsule by mouth once daily metoprolol tartrate, short acting, (LOPRESSOR) 50 mg tablet take 1 tablet by mouth twice a day sertraline (ZOLOFT) 100 mg tablet Take 1 tablet by mouth once daily. levothyroxine (LEVOXYL) 75 mcg tablet Take 1 tablet by mouth once daily. Take on empty stomach. For thyroid. furosemide (LASIX) 20 mg tablet Take 1 tablet by mouth every other day. amoxicillin (AMOXIL) 875 mg tablet Take 1 tablet by mouth two times a day for 7 days. albuterol HFA (VENTOLIN HFA) 90 mcg/actuation inhaler Inhale 2 Puffs as instructed every 4 hours as needed for wheezing/shortness of breath. (Patient not taking: Reported on 08/23/2024) mometasone (ELOCON) 0.1 % cream Apply 1 application to affected area once daily. (Patient not taking: Reported on 08/23/2024) cyclobenzaprine (FLEXERIL) 10 mg tablet Take 10 mg by mouth as needed. (Patient not taking: Reported on 08/23/2024) norgestimate 0.25 mg-ethinyl estradiol 35 mcg (SPRINTEC, ORTHO-CYCLEN) 0.25-35 mg-mcg per tablet Take 1 tablet by mouth once daily. (Patient not taking: Reported on 08/23/2024) FAMILY HISTORY Problem Relation Age of Onset [...] Never Smokeless tobacco: Never Vaping Use Vaping status: Never Used Substance Use Topics Alcohol use: Not Currently Drug use: Never Objective BP 110/76 Pulse 85 Temp 36.9 ?C (98.4 ?F) (Tympanic) Resp 18 Wt 120 kg (264 lb 9.5 oz) LMP 01/10/2023 SpO2 98% BMI 53.44 kg/m? Physical Exam HENT: Head: Normocephalic. Right Ear: Tympanic membrane, ear canal and external ear normal. Left Ear: Tenderness present. Tympanic membrane is erythematous and bulging. Mouth/Throat: Mouth: Mucous membranes are moist. Pharynx: Oropharynx is clear. Uvula midline. Cardiovascular: Rate and Rhythm: Normal rate and regular rhythm. Heart sounds: Normal heart sounds. Pulmonary: Effort: Pulmonary effort is normal. Breath sounds: Normal breath sounds. Skin: General: Skin is warm and dry. Neurological: Mental Status: She is alert and oriented to person, place, and time. {ASSESSMENT/PLAN: 1. Acute otitis media, left - ICD9: 382.9, ICD10: H66.92 - Will begin treatment with Amoxicillin for 7 days. - Educated about supportive care with plenty of fluids, rest, and analgesia prn. Patient also educated to start taking Claritin. - Patient agreeable to care plan. Will follow up if symptoms persist or worsen. - AMOXICILLIN 875 MG TABLET Renny Royal TEACHING PROVIDER (Physician/PA/BALANCE BRIDGE INSPECTOR) NOTE OF PERSONAL INVOLVEMENT IN CARE: I have personally seen and examined the patient and performed the medical decision-making components (more content not included)... Normal [facility] Genital Culture Comprehensiv christal 07-28-2024 VAC Reason for Exam: vag inal odor Normal vaginal ronnie isolated. No yeast, Neisseria or beta-hemolytic Streptococcus isolated. G. vaginalis (Presumptive) Amount Growth 3+ Normal [facility] Comment on above: Performed By: #### M 100.3200, M100.2000, L7400.0280 #### [facility] [address] [place], [address] PAP IG HPV APTIMA 16/18,45on 05-01-2025 ADEQ Comment Normal . [facility] Comment on above: Order Comment: Speci men Comment: [id number] Comment: No. of containers..01 ThinPrep Vial Result Comment: Sati sfactory for evaluation. No endocervical component is identified. Performed By: #### M 100.3200, M1, L7400.0280 ####[facility] [address] [place], [place], [address] COMM . Normal . [facility] Comment on above: Order Comment: Speci men Comment: [id number] Comment: No. of containers..01 ThinPrep Vial Performed By: #### M 100.3200, , L7400.0280 ####[facility] [address] [place], [place], [id number] COMMENT Comment Normal . [facility] Comment on above: Order Comment: Speci men Comment: [id number] Comment: No. of containers..01 ThinPrep Vial Result Comment: This liquid based ThinPrep(R) pap test was screened with the use of an image guided system. Performed By: #### M 100.3200, , L7400.0280 ####[facility] [address] [place], [place], [id number] DIAG Comment Normal . [facility] Comment on above: Order Comment: Speci men Comment: [id number] Comment: No. of containers..01 ThinPrep Vial Result Comment: NEGA TIVE FOR INTRAEPITHELIAL LESION OR MALIGNANCY. Performed By: #### M 100.3200, M1, L7400.0280 ####[facility] [address] [place], [place], [address] HPV APTIMA, HR Negative Normal Negative [facility] Comment on above: Order Comment: Speci men Comment: [id number] Comment: No. of containers..01 ThinPrep Vial Result Comment: This nucleic acid amplification test detects fourteen high- risk HPV types (16,18,31,33,35,39,45,51,52,56,58,59,66,68) without differentiation. Performed By: #### M 100.3200, M1.1999, L7400.0280 ####[facility] [address] [place], [place], [id number] HPV Jen Rfx Comment Normal . [facility] Comment on above: Order Comment: Speci men Comment: [id number] Comment: No. of containers..01 ThinPrep Vial Result Comment: Crit eran not met, HPV Genotype not performed. Performed at: - [facility] [id number] Resident Manager: Mya Lo MD, Phone: [phone] Performed at: =G - [facility] [address] [id number] Resident Manager: Mya Lo MD, Phone: [phone] Performed By: #### M 100.3200, , L7400.0280 ####[facility] [address] [place], [place], [id number] PAPSMR Comment Normal . [facility] Comment on above: Order Comment: Speci men Comment: [id number] Comment: No. of containers..01 ThinPrep Vial Result Comment: The Pap smear is a screening test designed to aid in the detection of premalignant and malignant conditions of the uterine cervix. It is not a diagnostic procedure and should not be used as the sole means of detecting cervical cancer. Both false-positive and false-negative reports do occur. Performed By: #### M 100.3200, M1, L7400.0280 ####[facility] [address] [place], [place], [id number] PERFORM Comment Normal . [facility] Comment on above: Order Comment: Speci men Comment: [id number] Comment: No. of containers..01 ThinPrep Vial Result Comment: Preeti Reynolds, Assembler Dc Field Yoke (ASCP) Performed By: #### M 100.3200, M100.2000, L7400.0280 ####[facility] [address] [place], [address] Cervical or vaginal specimen microscopic examination by liquid based cytology (reportOrdered By: Ale Sousa on 07-25-2024 Cytology report Cyto stain.thin prep Doc (Cvx/Vag) Comment . [facility] Comment on above: Criteria not met, HP V Genotype not performed.Performed at: - [address] [id number] Director: Mya Lo MD, Phone: [phone] at: =[facility] [id number] Director: Mya Lo MD, Phone: [phone] Cervical or vagninal specime n microscopic examination by cytology stain (reported asOrdered By: Ale Sousa on 07-25-2024 Cytology report Cyto stain Doc (Cvx/Vag) Comment . [facility] Comment on above: The Pap smear is a s creening test designed to aid in thedetection of premalignant and malignant conditions of theuterine cervix. It is not a diagnostic procedure andshould not be used as the sole means of detecting cervicalcancer. Both false-positive and false-negative reports dooccur. Detection in cervical specim en of any of human papilloma virus (HPV) 16, 18, 31, 33,Ordered By: Ale Sousa on 07-25-2024 HPV 16+18+31+33+35+39+45+5 1+52+56+58+59+66+68 DNA Probe+sig amp Ql (Cvx) Negative Negative [facility] Comment on above: This nucleic acid am plification test detects fourteen high- risk HPV types (16,18,31,33,35,39,45,51,52,56,58,59,66,68)without differentiation. Genital cultureOrdered By: Kam Sousa on 07-25-2024 Source specific culture G. vaginalis (Presumptive) Abnormal [facility] Gram Stainon 07-25-2024 GS Reason for Exam: vag inal odor Gram Stain 3+ Gram positive rods 2+ Gram variable katerin 1+ Gram positive cocci No Gram negative diplococci Score = 3 Interpretation: 0-3 Normal, 4-6 Intermediate, 7-10 Positive BV Normal [facility] Comment on above: Performed By: #### M 100.3200, M100.2000, L7400.0280 #### [facility] [address] [place], [address] Gram stainOrdered By: Ale Sousa on 07-25-2024 Microscopic observation Gram stain Nom (Unsp spec) [facility] - CytologyOrdered By: Ale Sousa on 07-25-2024 Assembler Dc Field Yoke Cyto stain Nom (Cvx/Vag) [ID] Comment . [facility] Comment on above: Preeti Reynolds, Cytolo gist (ASCP) Laboratory - Miscellaneous t estsOrdered By: Ale Sousa on 07-25-2024 Service comment (Unsp spec) [Interp] . . [facility] No Panel InformationOrdered By: Ale Sousa on 07-25-2024 Pap Smear Specimen Adequacy Comment . [facility] Comment on above: Satisfactory for denny luation. No endocervical component is identified. Aluminum Hydroxide Process Operator Office Visit Reporton 07-25-2024 Aluminum Hydroxide Process Operator Office Visit Report [facility] [address], [address] [place] [address] OFFICE VISIT Date of Service: 07/25/24 MR#: [id number] Acct: [id number] Name: LAKSHMI MCGEE ESVIN Rep #: [id number] : 1995 Provider: NIEVES Wilkinson ams Age/Sex: 28/F Location: [facility] Status: Signed Intake Vital Signs 10/06/23 13:30 06/13/24 07:44 07/25/24 12:32 07/25/24 12:37 Height 4 ft 11 in 4 ft 11 in 4 ft 11 in 4 ft 11 in Weight: 261 lb 261 lb BMI 52.7 52.7 BP 120/80 103/67 Blood Pressure Location Lt brachial Position Sitting Respiration 18 Pulse 98 Pulse Source Monitor Pulse Oximetry (%) 100 Intake Visit Reasons: Annual (SODA 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) Generator Repairer Required: No Is patient in pain?: No Allergies megestrol Allergy (Verified 07/25/24 12:33) shortness of breath, hives azithromycin Adverse Reaction (Intermediate, Verified 07/25/24 12:33) Upset Stomach Is last menstrual period known: Yes Last Menstrual Period: 06/16/24 Post menopausal: No Patient : No : No Control Method: none PFSH Medical History (Updated 07/25/24 @ 12:57 by Ale Sousa CNM) Hives Chronic headache Allergies Chest pain Pes cavus Obesity, Class III, BMI 40-49.9 (morbid obesity) Anxiety and depression Hypothyroid Surgical History Hx of ovarian cyst Hx of laparoscopy H/O section Family History Grandmother Cancer Social History (Updated 06/14/24 @ 15:04 by Latasha Handy) adopted: No household members: family housing: house number of children: 1 current occupational status: unemployed current occupation: [employer] pets and animals: Yes (chickens) history of recent travel: No sexually active: Yes Smoking Status: Never smoker second hand exposure: Yes alcohol intake: never substance use type: does not use well-balanced diet: about half the time caffeine: Yes Type: coffee Number of servings: 1 eating out: other details: 2/ month during the past year weight has: remained stable what type of physical activity do you participate in: walking frequency: 1-2 times per week duration: < 15 minutes/day obdulia/sabianism: None seatbelt use: always do you feel safe at home: Yes additional social history: - Markel History Elective abortions Hx Para 0 Spontaneous abortions Hx # Term Pregnancies Ectopic pregnancies Hx # Pregnancies Multiple births # of living children HPI Encounter for routine gynecological examination Details: LAKSHMI MCGEE is a 28 year old who presents for new annual exam. having irregular menses. Was on Nexplanon after of child- has not been on contraceptive for 10 months and noticing irregular menses. Would like to TTC but would like to loose weight prior to conceiving- discussed weightwatchers. noticing vaginal itching, irritation and odor at times. Last PAP: 2021 History of abnormal PAP: no Last mammogram: age 38 History of abnormal mammogram: na Colon cancer screening: age 43 Other preventative health care screenings: PCP Female Reproductive History Last Menstrual Period: 06/16/24 Bleeding Duration: 6 Questions: metorrhagia: No, sexually active: Yes, dyspareunia: No and PCB: No ROS Const Constitutional: Reports system reviewed and no additional complaints, except as documented Cardio Card: Reports system reviewed and no additional complaints, except as documented Resp Resp: Reports system reviewed and no additional complaints, except as documented GI GI: Reports system reviewed and no additional complaints, except as documented : Reports system reviewed and no additional complaints, except as documented; Denies difficulty voiding, dysuria or urinary frequency Skin Skin/Breast: Reports system reviewed and no additional complaints, except as documented Neuro Neuro: Reports system reviewed and no additional complaints, except as documented Psych Psych: Reports system reviewed and no additional complaints, except as documented; Denies anhedonia, anxiety or depression Exam Const General: cooperative, healthy appearing, comfortable and no acute distress Orientation: alert, awake and oriented x3 Neck Neck: normal visual inspection and full ROM Thyroid: thyroid normal Chest Breast inspection: normal inspection of the breasts and normal inspection of the axillae Breast palpation: normal palpation of the breasts and normal palpation of the axillae Resp Effort Inspection: normal respiratory effort, able to speak in complete sentences and symmetric chest movement GI Inspection: normal to inspection Palpation: soft Rectal Exam: visual inspection normal External Female Exam: normal ext (more content not included)... Normal [facility] Absolute lymphocyte countOrd ered By: Juan Jose Jefferson on 06-13-2024 Lymphocytes Auto (Unsp spec) [#/Vol] 3.17 10*3/uL 0.83-4.51 [facility] Absolute neutrophil countOrd ered By: Juan Jose Jefferson on 06-13-2024 Neutrophils (Bld) [#/Vol] 8.1 10*3/uL High 2.0-7.7 [facility] Anion gap in Serum or Plasma Ordered By: Juan Jose Jefferson on 06-13-2024 Anion gap [Moles/Vol] 10 mmol/L 5-15 [facility] Automated lymphocyte count a s percentage of total leukocytesOrdered By: Juan Jose Jefferson on 06-13-2024 Lymphocytes/100 WBC Auto (Unsp spec) 25.9 % 19- [facility] BUN/creatinine ratioOrdered By: Juan Jose Jefferson on 06-13-2024 Urea nitrogen/Creatinine [Mass ratio] 14.6 mg/mg 10-20 [facility] Basophil percentageOrdered B y: Juan Jose Jefferson on 06-13-2024 Basophils/100 WBC (Bld) 0.4 % 0-1 [facility] Bilirubin, totalOrdered By: Juan Jose Jefferson on 06-13-2024 Bilirubin [Mass/Vol] 0.27 mg/dL 0.00-1.30 [facility] CBC W/Diff, Automatedon 05-28 Absolute Lymph 3.17 X10 3/uL Normal 0.83-4.51 [facility] Comment on above: Performed By: #### L 500.4050, L501.9520, L100.0100 #### [facility] [address] [place], [address] Absolute Neut 8.1 X10 3/uL High 2.0-7.7 [facility] Comment on above: Performed By: #### L 500.4050, L501.9520, L100.0100 #### [facility] [address] [place], [address] Basophils/100 WBC (Bld) 0.4 % Normal 0-1 [facility] Comment on above: Performed By: #### L 500.4050, L501.9520, L100.0100 #### [facility] [address] [place], [address] Eosinophils/100 WBC (Bld) 1.1 % Normal 0-5 [facility] Comment on above: Performed By: #### L 500.4050, L501.9520, L100.0100 #### [facility] [address] [place], [address] Erythrocyte distribution width (RBC) [Ratio] 13.7 % Normal 11.6-14.6 [facility] Comment on above: Performed By: #### L 500.4050, L501.9520, L100.0100 #### [facility] [address] [place], [address] Hematocrit (Bld) [Volume fraction] 42.4 % Normal 37-47 [facility] Comment on above: Performed By: #### L 500.4050, L501.9520, L100.0100 #### [facility] [address] [place], [address] Hemoglobin (Bld) [Mass/Vol] 13.7 g/dL Normal 12.0-15.0 [facility] Comment on above: Performed By: #### L 500.4050, L501.9520, L100.0100 #### [facility] [address] [place], [address] IG% 1.100 High 0.0-0.9 [facility] Comment on above: Result Comment: IG% - Immature Granulocytes (promyelocytes, myelocytes and metamyelocytes) > 1% indicates that a LEFT SHIFT is Present. Performed By: #### L 500.4050, L501.9520, L100.0100 #### [facility] [address] [place], [address] Lymphocytes/100 WBC (Bld) 25.9 % Normal 19-41 [facility] Comment on above: Performed By: #### L 500.4050, L501.9520, L100.0100 #### [facility] [address] [place], [address] MCH (RBC) [Entitic mass] 29.3 pg Normal 27.0-32.0 [facility] Comment on above: Performed By: #### L 500.4050, L501.9520, L100.0100 #### [facility] [address] [place], [address] MCHC (RBC) [Mass/Vol] 32.3 g/dL Normal 32-36 [facility] Comment on above: Performed By: #### L 500.4050, L501.9520, L100.0100 #### [facility] [address] [place], [address] MCV (RBC) [Entitic vol] 90.6 fL Normal 81-99 [facility] Comment on above: Performed By: #### L 500.4050, L501.9520, L100.0100 #### [facility] [address] [place], [address] Monocytes/100 WBC (Bld) 5.0 % Normal 0-10 [facility] Comment on above: Performed By: #### L 500.4050, L501.9520, L100.0100 #### [facility] [address] [place], [address] Neutrophils/100 WBC (Bld) 66.5 % Normal 47-70 [facility] Comment on above: Performed By: #### L 500.4050, L501.9520, L100.0100 #### [facility] [address] [place], [address] Nucleated RBC (Bld) [#/Vol] 0 10*3/uL Normal 0-5 [facility] Comment on above: Performed By: #### L 500.4050, L501.9520, L100.0100 #### [facility] [address] [place], [address] Platelet mean volume (Bld) [Entitic vol] 8.7 fL Normal 6.2-12.0 [facility] Comment on above: Performed By: #### L 500.4050, L501.9520, L100.0100 #### [facility] [address] [place], [address] Platelets (Bld) [#/Vol] 385 10*3/uL Normal 150-450 [facility] Comment on above: Performed By: #### L 500.4050, L501.9520, L100.0100 #### [facility] [address] [place], [address] RBC (Bld) [#/Vol] 4.68 10*6/uL Normal 4.2-5.4 [facility] Comment on above: Performed By: #### L 500.4050, L501.9520, L100.0100 #### [facility] [address] [place], [address] RDW SD 45.0 fl High 35.1-43.9 [facility] Comment on above: Performed By: #### L 500.4050, L501.9520, L100.0100 #### [facility] [address] [place], [address] WBC (Bld) [#/Vol] 12.3 10*3/uL High 4.4-11.0 [facility] Comment on above: Performed By: #### L 500.4050, L501.9520, L100.0100 #### [facility] [address] [place], [address] Carbon dioxide, total [Moles /volume] in Central venous bloodOrdered By: Juan Jose Jefferson on 06-13-2024 CO2 [Moles/Vol] 23.6 mmol/L 21.0-32.0 [facility] Cardiology Visit Reporton Cardiology Visit Report [facility] [address] [place] [address] OFFICE VISIT Date of Service: 06/13/24 MR#: [id number] Acct: [id number] Name: LAKSHMI MCGEE ESVIN Rep #: [id number] : 1995 Provider: EVAN segovia Age/Sex: 28/F Location: [facility] Status: Signed HPI HPI History of Present Illness Details: This is a 28-year-old lady who presents to the office for a cardiovascular follow-up visit. She has a history of recurrent palpitations. She was seen in the emergency room for the same and underwent an outpatient echocardiographic evaluation demonstrating an ejection fraction of 59%. CT scan of the chest was also performed which demonstrated no evidence of pulmonary embolism. She subsequently went on to have a 14-day monitor which demonstrated an average heart rate of 101 bpm minimum heart rate of 62 bpm and a maximum 165 bpm. No significant arrhythmias or ectopy was noted. The patient was subsequently placed on beta-alonso which she appears to be tolerating. She denies chest, arm, jaw, or neck discomfort. She denies palpitations. She acknowledges bilateral lower extremity edema. She denies claudication. She acknowledges shortness of breath at rest after walking long distances and shortness breath with activity such as walking long distances. She denies orthopnea. She acknowledges dizziness, lightheadedness, and headache. She denies near- syncope or syncope. She acknowledges fatigue. Intake Vital Signs 10/06/23 13:30 06/13/24 07:44 Height 4 ft 11 in 4 ft 11 in Weight: 260 lb 8 oz 261 lb BMI 52.6 52.7 BP 103/68 120/80 Blood Pressure Location Lt brachial Lt brachial Position Sitting Sitting Respiration 16 18 Pulse 104 H 98 Pulse Source Monitor Monitor Pulse Oximetry (%) 100 Intake Visit Reasons: 6 M FU Generator Repairer Required: No Is patient in pain?: No Allergies megestrol Allergy (Verified 06/13/24 14:05) shortness of breath, hives azithromycin Adverse Reaction (Intermediate, Verified 06/13/24 14:05) Upset Stomach Medications ???Medication ???Instructions ???Recorded ???Confirmed ???Type sertraline 100 mg tablet 100 mg PO DAILY depression 8 06/13/24 History cholecalciferol (vitamin D3) 25 2,000 unit PO DAILY vitamin 06/13/24 History mcg (1,000 unit) tablet metoprolol tartrate 25 mg tablet 50 mg PO BID 07/29/22 06/13/24 His tory Ejection fraction %: 60 Have you fallen in the past year?: No PFSH Medical History Chest pain Pes cavus Obesity, Class III, BMI 40-49.9 (morbid obesity) Anxiety and depression Hypothyroid Surgical History Hx of ovarian cyst Hx of laparoscopy H/O section Family History Grandmother Cancer Social History Smoking Status: Never smoker alcohol intake: never substance use type: does not use ROS Const Const: Positive for fatigue and headache(s); Negative for weakness or frequent falls Eyes Eyes: Negative for blurry vision ENT ENT: Positive for headache(s) and dizziness; Negative for Nosebleed/epistaxis Cardio Chest Pain: No Palpitations: No Edema: Bilateral (L>R) Muscle aches with walking: None Resp Respiratory: Positive for SOB with activity, SOB at rest and snoring; Negative for SOB orthopnea SOB lying down GI GI: Negative nausea, vomiting, heartburn, bright, red blood in stools or black,tarry stools : Negative for hematuria Musc Musc: Negative for muscle aches/ myalgia Skin Skin: Negative non-healing lesions or rash Neuro Neuro: Positive for dizziness, lightheadedness and headache(s); Negative for near syncope, syncope, frequent falls, weakness or blurry vision Endo Endo: Positive for fatigue Allergy Allergy/Immunology: Negative for rash Cardiology Exam Const Appearance: cooperative, healthy appearing, comfortable and no acute distress Nutritional Appearance: well nourished and obese Orientation: alert, awake and oriented x3 Head Head: normal to inspection Ears: hearing grossly normal bilaterally Nose: external nose normal Face and Sinus: face symmetric Mouth: moist mucous membranes Eyes General: appearance normal, both eyes and all related structures Eyelids: eyelids normal EOM: EOM intact bilaterally Neck Neck: normal visual inspection and no JVD Carotids: normal carotid upstroke Chest Chest inspection: normal inspection of the chest, symmetric chest movement and normal respiratory effort; Negative cough Auscultation: Bilateral: Clear to Auscultation Cardio Rate: regular rate Rhythm: regular rhythm Heart sounds: S1 normal and (more content not included)... Normal [facility] Chloride assayOrdered By: Alea Jefferson on 06-13-2024 Chloride [Moles/Vol] 104 mmol/L 98-108 [facility] Comprehensive Metabolic Prof ilon 06-13-2024 Albumin [Mass/Vol] 3.9 g/dL Normal 3.5-5.0 [facility] Comment on above: Performed By: #### L 500.4050, L501.9520, L100.0100 #### [facility] [address] [place], [address] Albumin/Globulin [Mass ratio] 0.9 {ratio} Normal 0.9-2.4 [facility] Comment on above: Performed By: #### L 500.4050, L501.9520, L100.0100 #### [facility] [address] [place], [address] ALK PHOS 121 U/L High 35-104 [facility] Comment on above: Performed By: #### L 500.4050, L501.9520, L100.0100 #### [facility] [address] [place], [address] ALT [Catalytic activity/Vol] 28 U/L Normal <=34 [facility] Comment on above: Performed By: #### L 500.4050, L501.9520, L100.0100 #### [facility] [address] [place], [address] AST [Catalytic activity/Vol] 25 U/L Normal <=31 [facility] Comment on above: Performed By: #### L 500.4050, L501.9520, L100.0100 #### [facility] [address] [place], [address] Bilirubin [Mass/Vol] 0.27 mg/dL Normal 0.00-1.30 [facility] Comment on above: Performed By: #### L 500.4050, L501.9520, L100.0100 #### [facility] [address] [place], [address] BUN/CRE 14.6 RATIO Normal 10-20 [facility] Comment on above: Performed By: #### L 500.4050, L501.9520, L100.0100 #### [facility] [address] [place], [address] Calcium [Mass/Vol] 9.2 mg/dL Normal 7.6-11.0 [facility] Comment on above: Performed By: #### L 500.4050, L501.9520, L100.0100 #### [facility] [address] [place], [address] Chloride [Moles/Vol] 104 mmol/L Normal 98-108 [facility] Comment on above: Performed By: #### L 500.4050, L501.9520, L100.0100 #### [facility] [address] [place], [address] CO2 [Moles/Vol] 23.6 mmol/L Normal 21.0-32.0 [facility] Comment on above: Performed By: #### L 500.4050, L501.9520, L100.0100 #### [facility] [address] [place], [address] Creatinine [Mass/Vol] 0.69 mg/dL Low 0.70-1.20 [facility] Comment on above: Performed By: #### L 500.4050, L501.9520, L100.0100 #### [facility] [address] [place], [address] GAP 10 Normal 5-15 [facility] Comment on above: Performed By: #### L 500.4050, L501.9520, L100.0100 #### [facility] [address] [place], [address] GFR/1.73 sq M.predicted among non-blacks MDRD (S/P/Bld) [Vol rate/Area] 120 mL/min/{1.73_m2} Normal >60 [facility] Comment on above: Result Comment: mL/m in/1.73m2 CKD-EPI Creatinine Equation (2020) Performed By: #### L 500.4050, L501.9520, L100.0100 #### [facility] [address] [place], [address] Globulin (S) [Mass/Vol] 4.2 g/dL Normal 2.2-4.2 [facility] Comment on above: Performed By: #### L 500.4050, L501.9520, L100.0100 #### [facility] [address] [place], [address] Glucose [Mass/Vol] 91 mg/dL Normal 70-99 [facility] Comment on above: Performed By: #### L 500.4050, L501.9520, L100.0100 #### [facility] [address] [place], [address] Potassium [Moles/Vol] 4.0 mmol/L Normal 3.3-5.1 [facility] Comment on above: Performed By: #### L 500.4050, L501.9520, L100.0100 #### [facility] [address] [place], [address] Sodium [Moles/Vol] 137 mmol/L Normal 133-145 [facility] Comment on above: Performed By: #### L 500.4050, L501.9520, L100.0100 #### [facility] [address] [place], [address] T PROT 8.0 g/dL Normal 5.9-8.4 [facility] Comment on above: Performed By: #### L 500.4050, L501.9520, L100.0100 #### [facility] [address] [place], [place], [id number] Urea nitrogen [Mass/Vol] 10 mg/dL Normal 4-19 [facility] Comment on above: Performed By: #### L 500.4050, L501.9520, L100.0100 #### [facility] [address] [place], [address] Eosinophil percentageOrdered By: Juan Jose Jefferson on 06-13-2024 Eosinophils/100 WBC (Bld) 1.1 % 0-5 [facility] Erythrocyte distribution wid th ratioOrdered By: Juan Jose Jefferson on 06-13-2024 Erythrocyte distribution width (RBC) [Ratio] 13.7 % 11.6-14.6 [facility] Erythrocyte distribution wid th standard deviationOrdered By: Juan Jose Jefferson on 06-13-2024 Erythrocyte distribution width (RBC) [Entitic vol] 45.0 fL High 35.1-43.9 [facility] Erythrocyte distribution width (RBC) [Ratio] 45.0 fl High 35.1-43.9 [facility] GFR/1.73 sq M.predicted cornelio g non-blacks MDRD (S/P/Bld) [Vol rate/Area]Ordered By: Juan Jose Jefferson on 06-13-2024 Estimated GFR (MDRD) Non-Af Amer 120 >60 [facility] Comment on above: mL/min/1.73m2 CKD-EP I Creatinine Equation (2020) Glomerular filtration rate ( GFR) estimation/1.73 sq m using serum, plasma, or whole bOrdered By: Juan Jose Jefferson on 06-13-2024 GFR/1.73 sq M.predicted among non-blacks MDRD (S/P/Bld) [Vol rate/Area] 120 mL/min/{1.73_m2} >60 [facility] Comment on above: mL/min/1.73m2 CKD-EP I Creatinine Equation (2020) Hematocrit Auto (Bld) [Volum e fraction]Ordered By: Juan Jose Jefferson on 06-13-2024 Hematocrit (Bld) [Volume fraction] 42.4 % 37-47 [facility] Hemoglobin measurementOrdere d By: Juan Jose Jefferson on 06-13-2024 Hemoglobin (Bld) [Mass/Vol] 13.7 g/dL 12.0-15.0 [facility] Immature granulocytes/100 WB C Auto (Bld)Ordered By: Juan Jose Jefferson on 06-13-2024 Immature granulocytes/100 WBC (Bld) 1.100 % High 0.0-0.9 [facility] Comment on above: IG% - Immature Granu locytes (promyelocytes, myelocytes and metamyelocytes) > 1% indicates that a LEFT SHIFT is Present. Laboratory - Chemistry and C hemistry - challengeOrdered By: Juan Jose Jefferson on 06-13-2024 AST [Catalytic activity/Vol] 25 U/L <32 [facility] Lymphocytes Auto (Unsp spec) [#/Vol]Ordered By: Juan Jose Jefferson on 06-13-2024 Lymphocytes (Bld) [#/Vol] 3.17 10*3/uL 0.83-4.51 [facility] Lymphocytes/100 WBC Auto (Un sp spec)Ordered By: Juan Jose Jefferson on 06-13-2024 Lymphocytes/100 WBC (Bld) 25.9 % 19-41 [facility] MCV (mean corpuscular volume ) determinationOrdered By: Juan Jose Jefferson on 06-13-2024 MCV (RBC) [Entitic vol] 90.6 fL 81-99 [facility] Mean corpuscular hemoglobin (MCH) determinationOrdered By: Juan Jose Jefferson on 06-13-2024 MCH (RBC) [Entitic mass] 29.3 pg 27.0-32.0 [facility] Mean corpuscular hemoglobin concentration (MCHC) determinationOrdered By: Juan Jose Jefferson on 06-13-2024 MCHC (RBC) [Mass/Vol] 32.3 g/dL 32-36 [facility] Mean platelet volume determi nationOrdered By: Juan Jose Jefferson on 06-13-2024 Platelet mean volume (Bld) [Entitic vol] 8.7 fL 6.2-12.0 [facility] Monocyte percentageOrdered B y: Juan Jose Jefferson on 06-13-2024 Monocytes/100 WBC (Bld) 5.0 % 0-10 [facility] Neutrophil percentageOrdered By: Juan Jose Jefferson on 06-13-2024 Neutrophils/100 WBC (Bld) 66.5 % 47-70 [facility] Nucleated red blood cell per centageOrdered By: Juan Jose Jefferson on 06-13-2024 Nucleated RBC/100 WBC (Bld) [Ratio] 0 % 0-5 [facility] Platelet countOrdered By: Alea Jefferson on 06-13-2024 Platelets (Bld) [#/Vol] 385 10*3/uL 150-450 [facility] Potassium (Unsp spec) [Mass/ Vol]Ordered By: Juan Jose Jefferson on 06-13-2024 Potassium [Moles/Vol] 4.0 mmol/L 3.3-5.1 [facility] Potassium measurement (mass/ volume)Ordered By: Juan Jose Jefferson on 06-13-2024 Potassium (Unsp spec) [Mass/Vol] 4.0 mmol/L 3.3-5.1 [facility] RBC Auto (Bld) [#/Vol]Ordere d By: Juan Jose Jefferson on 06-13-2024 RBC (Bld) [#/Vol] 4.68 10*6/uL 4.2-5.4 [facility] Serum creatinine measurement (mass/volume)Ordered By: Juan Jose Jefferson on 06-13-2024 Creatinine [Mass/Vol] 0.69 mg/dL Low 0.70-1.20 [facility] Serum globulin measurementOr dered By: Juan Jose Jefferson on 06-13-2024 Globulin (S) [Mass/Vol] 4.2 g/dL 2.2-4.2 [facility] Serum glucose measurement (m ass/volume)Ordered By: Juan Jose Jefferson on 06-13-2024 Glucose [Mass/Vol] 91 mg/dL 70-99 [facility] Serum or plasma alanine segovia otransferase (ALT) measurementOrdered By: Juan Jose Jefferson on 06-13-2024 ALT [Catalytic activity/Vol] 28 U/L <35 [facility] Serum or plasma albumin malka urement (mass/volume)Ordered By: Juan Jose Jefferson on 06-13-2024 Albumin [Mass/Vol] 3.9 g/dL 3.5-5.0 [facility] Serum or plasma albumin/glob ulin mass ratioOrdered By: Juan Jose Jefferson on 06-13-2024 Albumin/Globulin [Mass ratio] 0.9 {ratio} 0.9-2.4 [facility] Serum or plasma alkaline ken sphatase measurementOrdered By: Juan Jose Jefferson on 06-13-2024 ALP [Catalytic activity/Vol] 121 U/L High 35-104 [facility] Serum or plasma calcium malka urement (mass/volume)Ordered By: Juan Jose Jefferson on 06-13-2024 Calcium [Mass/Vol] 9.2 mg/dL 7.6-11.0 [facility] Serum or plasma urea nitroge n measurement (mass/volume)Ordered By: Juan Jose Jefferson on 06-13-2024 Urea nitrogen [Mass/Vol] 10 mg/dL 4-19 [facility] Sodium levelOrdered By: Juan Jose Jefferson on 06-13-2024 Sodium [Moles/Vol] 137 mmol/L 133-145 [facility] TSH DL <= 0.005 mIU/L QnOrde red By: Juan Jose Jefferson on 06-13-2024 Thyroid Stimulating Hormone (TSH) 5.570 uIU/mL High 0.300-4.20 0 [facility] TSH Qn 5.570 uIU/mL High 0.300-4.20 0 [facility] Thyroid Stim Hormone (TSH)on 06-13-2024 TSH 5.570 uIU/mL High 0.300-4.20 0 [facility] Comment on above: Performed By: #### L 500.4050, L501.9520, L100.0100 #### [facility] [address] [facility] [place], [address] Total proteinOrdered By: Yusef Jefferson on 06-13-2024 Protein [Mass/Vol] 8.0 g/dL 5.9-8.4 [facility] White blood cell (WBC) count Ordered By: Juan Jose Jefferson on 06-13-2024 WBC (Bld) [#/Vol] 12.3 10*3/uL High 4.4-11.0 [facility] Echo Completeon 11-04-2023 Echo [facility] [address] [place] [address] Echo Complete 11/04/23 1103 MR#: [id number] Acct: [id number] Name: LAKSHMI MCGEE Rep #: [id number] : 1995 28 From: Edwin Biswas MD Attending Dr: Dr. Ediwn Biswas MD Status: MARY HAWK Ordering Dr: Edwin Biswas MD Date: 11/04/23 Location: [facility] Sex: F C Admitted: Reason For Study: PALPITATIONS Procedure This was a 2D Doppler, Color Flow transthoracic echocardiogram. Exam performed in department. Left Ventricle Normal LV size. Left ventricular systolic function is normal. The left ventricular ejection fraction is 60 %. No regional wall motion abnormalities noted. Right Ventricle Normal RV size. Normal systolic function. Atria Normal left atrium. Normal right atrium. Mitral Valve Normal mitral valve. Tricuspid Valve Normal tricuspid valve. Mild (1+) tricuspid valve insufficiency. Pulmonary artery systolic pressure is 34 mmHg. Aortic Valve Trisinus/trileaflet aortic valve. Pulmonic Valve Normal pulmonic valve. Great Vessels Normal aortic root. The pulmonary artery is normal size. Normal inferior vena cava. Pericardium/Pleural No pericardial effusion. MMode/2D Measurements Calculations LVIDd: 4.8 cm IVSd: 0.74 cm Ao root diam: 2.4 cm LVIDs: 3.2 cm LVPWd: 0.93 cm RVDd: 3.0 cm FS: 33.6 % LAV(MOD-bp): 31.8 ml LVAd ap4: 26.6 cm2 SV(MOD-sp4): 52.4 ml LAV(MOD-bp) Indexed: 15.4 ml/m2 LVLd ap4: 7.4 cm LAV(MOD-sp2): 29.9 ml EDV(MOD-sp4): 78.5 ml LAV(MOD-sp4): 30.5 ml EDV(sp4-el): 81.4 ml LVAs ap4: 14.0 cm2 LVLs ap4: 6.3 cm ESV(MOD-sp4): 26.1 ml ESV(sp4-el): 26.3 ml EF(MOD-sp4): 66.8 % EF(sp4-el): 67.7 % SV(sp4-el): 55.0 ml LA A4 area: 13.6 cm2 LA dimension(2D): 3.4 cm RA A4 area: 11.5 cm2 TAPSE: 1.9 cm Time Measurements MV dec time: 0.19 sec Doppler Measurements Calculations MV E max nik: 88.3 cm/sec Lat Peak E' Nik: 16.2 cm/sec Med Peak E' Nik: 13.7 cm/sec MV A max nik: 55.8 cm/sec E/E' lat: 5.5 E/E' med: 6.4 MV E/A: 1.6 Ao V2 max: 146.9 cm/sec LV V1 max: 130.1 cm/sec PA V2 max: 127.9 cm/sec Ao max P.6 mmHg LV V1 max P.8 mmHg TR max nik: 272.4 cm/sec TR max P.7 mmHg ECHO/Echo Complete Interpretation Summary Normal LV size. Left ventricular systolic function is normal. The left ventricular ejection fraction is 60 %. Pulmonary artery systolic pressure is 34 mmHg. Structurally normal valves. Ordering Physician: Edwin Biswas Referring Physician: RENE DOHERTY Performed By: Corin Camacho RDCS 11/04/23 1435 Date Edwin Biswas MD CC: Dr. Edwin Biswas MD; Dr. Rene Doherty MD Date Dictated: 11/04/23 1103 Date Transcribed: 11/04/23 1435 Access Specialist: Signed Normal [facility] Cardiology Visit Reporton Cardiology Visit Report [facility] [facility] [place] [address] OFFICE VISIT Date of Service: 10/06/23 MR#: [id number] Acct: [id number] Name: NATALY MCGEEIDI ESVIN Rep #: [id number] : 1995 Provider: Dr. Edwin Biswas MD Age/Sex: 27/F [place] [facility] [place]: Signed HPI HPI History of Present Illness Details: This is a 27-year-old lady who presents to the office for a cardiovascular follow-up visit. She has a history of recurrent palpitations. She was seen in the emergency room for the same and underwent an outpatient echocardiographic evaluation demonstrating an ejection fraction of 59%. CT scan of the chest was also performed which demonstrated no evidence of pulmonary embolism. She subsequently went on to have a 14-day monitor which demonstrated an average heart rate of 101 bpm minimum heart rate of 62 bpm and a maximum 165 bpm. No significant arrhythmias or ectopy was noted. The patient was subsequently placed on beta-alonso which she appears to be tolerating. From a cardiac standpoint, the patient is doing well. She continues to have occasional palpitations along with chest pressure. She describes this as a fluttering sensation. She states that this has improved. She denies chest pain, or heaviness. She does have an occasional SOB with palpitations or with walking longer distances. She denies Orthopnea, and PND. She does not have bleeding issues; no blood in urine, stool or nosebleeds. She denies any decrease in energy level, myalgias, or claudication. She does have bilateral hand and ankle edema. She states she is following with a RA doctor, and is on Lasix for this. She denies sudden weight gain. She denies dizziness, lightheadedness, syncopal or near syncopal episodes, and headaches. 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 Accompanied by: Self Is patient in pain?: No Allergies megestrol Allergy (Verified 10/06/23 13:32) shortness of breath, hives azithromycin Adverse Reaction (Intermediate, Verified 10/06/23 13:32) Upset Stomach Medications ???Medication ???Instructions ???Recorded ???Confirmed ???Type sertraline 100 mg tablet 100 mg PO DAILY depression 01/03/18 10/06/23 History cholecalciferol (vitamin D3) 25 2,000 unit PO DAILY vitamin 04/07/19 10/06/23 History mcg (1,000 unit) tablet ferrous sulfate 325 mg (65 mg 325 mg PO BID 01/24/22 10/06/23 History iron) tablet (FeroSul) levothyroxine 75 mcg capsule 75 mcg PO DAILY 07/29/22 10/06/23 History metoprolol tartrate 25 mg tablet 50 mg PO BID 07/29/22 10/06/23 History furosemide 20 mg tablet (Lasix) 20 mg PO DAILY PRN 10/06/23 10/06/23 History Have you fallen in the past year?: No PFSH Medical History Chest pain Pes cavus Obesity, Class III, BMI 40-49.9 (morbid obesity) Anxiety and depression Hypothyroid Surgical History Hx of ovarian cyst Hx of laparoscopy H/O section Family History Grandmother Cancer Social History Smoking Status: Never smoker alcohol intake: never substance use type: does not use ROS Const Const: Positive for headache(s); Negative for fatigue, weakness, daytime sleepiness or difficulty sleeping ENT ENT: Positive for headache(s); Negative for dizziness or Nosebleed/epistaxis Cardio Chest Pain: No Palpitations: Yes (at times) Edema: Bilateral (BLE at times- uses Lasix prn) Resp Respiratory: Negative for SOB with activity, SOB at rest, SOB orthopnea SOB lying down or Cough GI GI: Positive for heartburn; Negative nausea or vomiting Neuro Neuro: Positive for headache(s); Negative for dizziness, lightheadedness, near syncope or weakness Endo Endo: Negative for fatigue Cardiology Exam Const Appearance: cooperative, healthy appearing, no acute distress, well developed and well groomed Nutritional Appearance: average body habitus, well nourished and obese Orientation: alert, awake and oriented x3 Head Head: normal to inspection, normocephalic and atraumatic Ears: hearing grossly normal bilaterally and external ears normal Nose: external nose normal and nares normal Face and Sinus: face symmetric Eyes General: appearance normal, both eyes and all related structures Eyelids: eyelids normal Conjunctivae: conjunctivae normal Pupils: PERRL, normal by confrontation and accommodation normal (more content not included)... Normal [facility] Absolute lymphocyte countOrd ered By: González Richard on 03-30-2023 Lymphocytes Auto (Unsp spec) [#/Vol] 0.54 10*3/uL 0.83-4.51 [facility] Basophil percentageOrdered B y: González Richard on 03-30-2023 Basophils/100 WBC (Bld) 0.4 % 0-1 [facility] Chloride [Moles/Vol] 108 mmol/L 98-107 [facility] Eosinophils/100 WBC (Bld) 0.6 % 0-5 [facility] Glucose [Mass/Vol] 101 mg/dL 74-106 [facility] Comment on above: Fasting Glucose resu lt from 100 to 125 mg/dL suggests IMPAIRED HOMEOSTASIS per A.D.A. criteria. Neutrophils (Bld) [#/Vol] 5.8 10*3/uL 2.0-7.7 [facility] Neutrophils/100 WBC (Bld) 84.6 % 47-70 [facility] Potassium [Moles/Vol] 4.2 mmol/L 3.5-5.1 [facility] Sodium [Moles/Vol] 136 mmol/L 136-145 [facility] WBC (Bld) [#/Vol] 6.9 10*3/uL 4.4-11.0 [facility] Blood erythrocytes count (nu mber/volume)Ordered By: González Richard on 03-30-2023 RBC (Bld) [#/Vol] 4.20 10*6/uL 4.2-5.4 [facility] Blood hemoglobin measurement (mass/volume)Ordered By: González Richard on 03-30-2023 Hemoglobin (Bld) [Mass/Vol] 12.2 g/dL 12.0-15.0 [facility] Blood lymphocytes/100 leukoc ytesOrdered By: González Richard on 03-30-2023 Lymphocytes/100 WBC (Bld) 7.8 % 19-41 [facility] Blood manual differential co mment interpretation (narrative result)Ordered By: González Richard on 03-30-2023 Manual differential comment Fadi (Bld) [Interp] SCANNED [facility] Blood monocytes/100 leukocyt esOrdered By: González Richard on 03-30-2023 Monocytes/100 WBC (Bld) 4.6 % 0-10 [facility] Blood platelet mean volumeOr dered By: González Richard on 03-30-2023 Platelet mean volume (Bld) [Entitic vol] 8.7 fL 6.2-12.0 [facility] Determination of erythrocyte mean corpuscular volume (MCV)Ordered By: González Richard on 03-30-2023 MCV (RBC) [Entitic vol] 91.9 fL 81-99 [facility] Hematocrit Auto (Bld) [Volum e fraction]Ordered By: González Richard on 03-30-2023 Hematocrit (Bld) [Volume fraction] 38.6 % 37-47 [facility] Influenza virus A and B and SARS-CoV-2 (COVID-19) Ag panel - Upper respiratory specimOrdered By: González Richard on 03-30-2023 SARS-CoV-2 & FLU Antigen (Rapid) Influenzae A [facility] - Chemistry and C hemistry - challengeOrdered By: González Richard on 03-30-2023 CO2 [Moles/Vol] 24.0 mmol/L 21.0-32.0 [facility] Urea nitrogen/Creatinine [Mass ratio] 10.7 mg/mg 10-20 [facility] - Hematology and Cell countsOrdered By: González Richard on 03-30-2023 Erythrocyte distribution width (RBC) [Entitic vol] 46.6 fL 35.1-43.9 [facility] Erythrocyte distribution width (RBC) [Ratio] 13.9 % 11.6-14.6 [facility] Immature granulocytes/100 WBC (Bld) 2.000 % 0.0-0.9 [facility] Comment on above: IG% - Immature Granu locytes (promyelocytes, myelocytes and metamyelocytes) > 1% indicates that a LEFT SHIFT is Present. MCH (RBC) [Entitic mass] 29.0 pg 27.0-32.0 [facility] Nucleated RBC/100 WBC (Bld) [Ratio] 0 % 0-5 [facility] MCHC Auto (RBC) [Mass/Vol]Or dered By: González Richard on 03-30-2023 MCHC (RBC) [Mass/Vol] 31.6 g/dL 32-36 [facility] No Panel InformationOrdered By: González Richard on 03-30-2023 Estimated Creatinine Clearance Calc 179.87 ml/min [facility] Estimated GFR (MDRD) Amer 103 mL/min >60 [facility] Comment on above: GFR Calc Estimated GFR (MDRD) Non-Af Amer 85 mL/min >60 [facility] Comment on above: Non- GFR Calc Troponin I High Sensitivity < 3 pg/mL 3.0-54.0 [facility] Comment on above: Please Note: New Yara t Units and Gender Specific Reference Ranges. For more information see Policy Stat Procedure [place] High Sensitivity Troponin (TNIH) and attachments. Platelets bldOrdered By: Lara Richard on 03-30-2023 Platelets (Bld) [#/Vol] 274 10*3/uL 150-450 [facility] Serum or plasma calcium malka urement (mass/volume)Ordered By: González Richard on 03-30-2023 Calcium [Mass/Vol] 9.0 mg/dL 8.5-10.1 [facility] Serum or plasma creatinine m easurement (mass/volume)Ordered By: González Richard on 03-30-2023 Creatinine [Mass/Vol] 0.84 mg/dL 0.55-1.02 [facility] Comment on above: The validity of the calculated GFR & GFRAA in patients over 70 years has not been determined. Clinical correlation is essential. Serum or plasma urea nitroge n measurement (mass/volume)Ordered By: González Richard on 03-30-2023 Urea nitrogen [Mass/Vol] 9 mg/dL 7-18 [facility] Thin prep Papanicolaou smear with manual screeningOrdered By: González Richard on 03-30-2023 Thin prep Papanicolaou smear with manual screening 4 5-15 [facility] MIRACLE MARCELO W KANDIS BILATERALon 10-07-2022 [facility] US BREAST LTD LEFTon 023 [facility] Serum or plasma choriogonado tropin detectionOrdered By: Batool Ramesh on 10-01-2022 HCG ( test) Ql < 1 mIU/mL <4 [facility] Comment on above: hCG levels with Gest ational AgeGestational Age hCG mIU/mL (IU/L)0.2 - 1 week 5 - 501-2 weeks 50 - 5002-3 weeks 100 - 19703-0 weeks 500 - 966231-9 weeks 1000 - 241311-9 weeks 69989 - 100,0006-8 weeks 15026 - 200,0002-3 months 47592 - 100,000 Basophil percentageOrdered B y: Karlos Patterson on 09-05-2022 Chloride [Moles/Vol] 104 mmol/L 98-107 [facility] Glucose [Mass/Vol] 89 mg/dL 74-106 [facility] Potassium [Moles/Vol] 3.7 mmol/L 3.5-5.1 [facility] Sodium [Moles/Vol] 138 mmol/L 136-145 [facility] Laboratory - Chemistry and C hemistry - challengeOrdered By: Karlos Patterson on 09-05-2022 CO2 [Moles/Vol] 28.0 mmol/L 21.0-32.0 [facility] Urea nitrogen/Creatinine [Mass ratio] 15.6 mg/mg 10-20 [facility] NURSING PROGon 09-05-2022 NURSING PROG HNO ID: [id number] Author: Henry Jimenez RN Service: ? Author Type: Registered Nurse Type: Nursing Progress Note Filed: 09/05/2022 3:49 PM Note Text: Patient called [facility] with concerns of feeling dizzy after her EGD with Dr. Carlisle. Patient agreed to speak to doctors staff in the office to discuss if she needed an appointment. Transferred successfully to [facility] in [place]. Normal [facility] No Panel InformationOrdered By: Karlos Patterson on 09-05-2022 Estimated Creatinine Clearance Calc 159.87 ml/min [facility] Estimated GFR (MDRD) Amer 96 mL/min >60 [facility] Comment on above: GFR Calc Estimated GFR (MDRD) Non-Af Amer 79 mL/min >60 [facility] Comment on above: Non- GFR Calc Serum or plasma calcium malka urement (mass/volume)Ordered By: Karlos Patterson on 09-05-2022 Calcium [Mass/Vol] 10.0 mg/dL 8.5-10.1 [facility] Serum or plasma creatinine m easurement (mass/volume)Ordered By: Karlos Patterson on 09-05-2022 Creatinine [Mass/Vol] 0.90 mg/dL 0.55-1.02 [facility] Comment on above: The validity of the calculated GFR & GFRAA in patients over 70 years has not been determined. Clinical correlation is essential. Serum or plasma urea nitroge n measurement (mass/volume)Ordered By: Karlos Patterson on 09-05-2022 Urea nitrogen [Mass/Vol] 14 mg/dL 18 [facility] Thin prep Papanicolaou smear with manual screeningOrdered By: [facility] on 09-05-2022 Thin prep Papanicolaou smear with manual screening 6 - [facility] ANES POSTPROC EVALon 023 ANES POSTPROC EVAL HNO ID: [id number] Author: Pawan Malloy APRN.HAM DOCTOR Service: Anesthesiology Author Type: Nurse Instructional Technology Coordinator Type: Anesthesia Postprocedure Evaluation Filed: 09/04/2022 12:03 PM Note Text: POST ANESTHESIA EVALUATION NOTE : 1995 Procedure Summary Date: 09/04/22 Room / Location: SURGERY Anesthesia Start: 1146 Anesthesia Stop: 1202 Procedure: EGD DIAGNOSTIC Diagnosis: GERD without esophagitis Scheduled Providers: Mary Carlisle MD; Pawan Malloy APRN.HAM DOCTOR Responsible Provider: Pawan Malloy APRN.HAM DOCTOR Anesthesia Type: MAC ASA Status: 2 Anesthesia Type: MAC Last Vitals Vitals Value Taken Time BP 09/04/22 1202 Temp 09/04/22 1202 Pulse 09/04/22 1202 Resp 09/04/22 1202 SpO2 96 % 09/04/22 1158 Post Anesthesia Patient Status Patient Evaluation: PACU. PACU/ICU Patient Condition: stable. Anticipated Disposition: phase 2 then home. Neurological Status: aware and responsive. Pulmonary Status: breathing comfortably on room air Airway Control: returned to baseline unsupported. Cardiovascular Status: stable. Pain Management: clinically adequate Postoperative Hydration: acceptable. Intraoperative Events: no significant anesthesia events Post Operative Nausea/Vomiting Status: no significant post operative nausea or vomiting Recommendation: continue current plan of care. Anesthesia Observations No Documentation SIGNATURE: Pawan Malloy APRN.HAM DOCTOR PATIENT NAME: Lakshmi Mcgee DATE: September 04, 2022 TIME: 12:02 PM CSN: [id number] [facility] ANES PRE-OPon 09-04-2022 ANES PRE-OP HNO ID: [id number] Author: Pawan Malloy APRN.HAM DOCTOR Service: Anesthesiology Author Type: Nurse Instructional Technology Coordinator Type: Anesthesia Preprocedure Evaluation Filed: 09/04/2022 11:16 AM Note Text: ANESTHESIOLOGY DAY OF SURGERY NOTE : 1995 Procedure Information Date/Time: 09/04/22 1145 Scheduled providers: Mary Carlisle MD; Pawan Malloy APRN.HAM DOCTOR Procedure: EGD DIAGNOSTIC Location: [facility] SURGERY Estimated body mass index is 46.45 kg/m? as calculated from the following: Height as of 08/28/22: 149.9 cm (4' 11). Weight as of 08/28/22: 104.3 kg (230 lb). Most recent hematocrit and potassium results: Hematocrit 39.8 05/23/2022 Potassium 4.1 05/23/2022 Relevant Problems ENDO (+) Hypothyroidism, acquired GI (+) GERD without esophagitis I - PHYSICAL EVALUATION AIRWAY Patient intubated: No. Tracheostomy tube not present Mallampati: III. TM distance: >3 FB. Neck ROM: full ROM without neurological symptoms. Mouth opening: adequate. Short neck: no. Thick neck: no Ortega present: no Lip Bite Test: II Microretrognathia/Micronagth ia/Recessed Chin: No DENTAL Dental findings: teeth intact. Additional exam findings: no II - ANESTHESIA PLAN ASA Score: 2 Anesthetic Plan: MAC The patient is not a current smoker. NPO Status: adequate Beta Alonso Administration of chronic beta alonso medication not planned. Monitoring Plan Monitoring plan: standard ASA. Post Procedure Analgesic Plan Postoperative analgesic plan: per surgical service. Informed Consent Anesthetic risks, benefits, alternatives, personnel and consent discussed: yes. Patient / Responsible Libertarian agrees to proceed: yes Patient / Surrogate agrees to blood products: blood products not planned DNR status reviewed with patient and/or family prior to surgery. patient elects to suspend DNR status in the perioperative setting (Full Code). Significant changes in the patient condition since the History and Physical, not otherwise documented in primary service progress note: no. Potential Anesthesia issues that may suggest increased risk of complications or contraindication to planned procedure: none. Discussed the possibility of lip / dental damage: no No vitals data found for the desired time range. Outpatient Medications as of 09/04/2022 Medication Sig - mometasone (ELOCON) 0.1 % cream Apply 1 application to affected area once daily. - Cholecalciferol, Vitamin D3, 25 mcg (1,000 unit) cap Take 1 capsule by mouth once daily. - pantoprazole DR (PROTONIX) 40 mg tablet Take 1 tablet by mouth daily before breakfast. Take on empty stomach, 1/2 hr before meal. - sertraline (ZOLOFT) 100 mg tablet Take 1 tablet by mouth once daily. - levothyroxine (LEVOXYL) 75 mcg tablet Take 1 tablet by mouth once daily. Take on empty stomach. For thyroid. - pantoprazole DR (PROTONIX) 20 mg tablet Take 1 tablet by mouth daily before breakfast. Take on empty stomach, 1/2 hr before meal. - furosemide (LASIX) 20 mg tablet Take 1 tablet by mouth once daily. - FEROSUL 325 mg (65 mg iron) tablet Take 1 tablet by mouth twice daily with meals. - metoprolol tartrate, short acting, (LOPRESSOR) 50 mg tablet Take 1 tablet by mouth twice daily. - cyclobenzaprine (FLEXERIL) 10 mg tablet Take 10 mg by mouth as needed. - norgestimate 0.25 mg-ethinyl estradiol 35 mcg (SPRINTEC, ORTHO-CYCLEN) 0.25-35 mg-mcg per tablet Take 1 tablet by mouth once daily. Facility-Administered Medications as of 09/04/2022 Medication Dose Route Frequency - lidocaine (PF) 10 mg/mL (1 %) 1-2 mg injection (XYLOCAINE) 0.1-0.2 mL INTRADERMAL PRN - lactated ringers iv infusion 75 mL/hr INTRAVENOUS CONTINUOUS - perflutren lipid microspheres 1.3 mL in NaCl (PF) 0.9% 10 mL injection (DEFINITY) INTRAVENOUS DIRECTED PRN - sodium chloride 0.9 % (flush) 10 mL (BD POSIFLUSH) 10 mL INTRAVENOUS DIRECTED PRN I have interviewed and examined the patient. I have reviewed the medical record and/or the pre-anesthesia evaluation, pertinent labs, and test results. This contains updated information obtained within 48 hours of Surgery/Procedure. SIGNATURE: Pawan Malloy APRN.CRNA PATIENT NAME: Lakshmi Mcgee DATE: September 04, 2022 TIME: 11:15 AM CSN: [id number] Normal [facility] BRIEF OP NOTon 09-04-2022 BRIEF OP NOT HNO ID: [id number] Author: Mary Carlisle MD Service: General Surgery Author Type: Physician Type: Brief Op Note Filed: 09/04/2022 11:59 AM Note Text: BRIEF OPERATIVE NOTE SURGERY DATE: 09/04/2022 Incision/Procedure Start Time: 11:51 Incision Close/Procedure End Time: 11:56 Surgeon(s)/Proceduralist(s) and Whipper(s): Orestes Procedures: EGD with biopsies Anesthesia: MAC Findings: no abnormalities noted Estimated Blood Loss: minimal Specimens: mucosal biopsies of antrum of stomach and GE junction Complications: None Closure Technique: Non-primary Preop Diagnosis: epigastric abdominal pain Postop Diagnosis: epigastric abdominal pain SIGNATURE: Mary Carlisle MD PATIENT NAME: Lakshmi Mcgee DATE: September 04, 2022 TIME: 11:57 AM Acct: [id number] Normal [facility] HCG ( test) Ql (U)o n 09-04-2022 Specific gravity (U) [Rel density] 1.010 Normal 1.005-1.03 0 [facility] Comment on above: Order Comment: Speci men Type: URINE SPECIMEN Ordering Facility: [facility] Address: [address] [place] [address] Performed By: #### 2 106-3 #### [facility] CLIA [id number] [address] [place] [address] [place] HCG Preg Ur Qlon 09-04-2022 HCG ( test) Ql (U) Negative Normal Negative [facility] Comment on above: Order Comment: Speci men Type: URINE SPECIMEN Ordering Facility: [facility] Address: [address] [place], [place] [address] Result Comment: This test is intended to aid in the early detection of . Very dilute urine samples, as indicated by a low specific gravity, may not contain electronics parts sales representative levels of hCG. This test detects intact hCG only. This test does not reliably detect hCG degradation products, including free-beta subunit and beta-core fragment. Therefore, this test may show reduced reactivity in urine after 8 weeks gestation. A number of conditions other than , including trophoblastic disease and certain non-trophoblastic neoplasms cause elevated levels of hCG. As with any assay employing mouse antibodies, the possibility exists for interference by human anti-mouse antibodies (HAMA) in the specimen. The test provides a presumptive diagnosis for . Performed By: #### 2 106-3 #### [facility] CLIA [id number] [address] [place] [address] [place] HISTORY PHYSICALon HISTORY PHYSICAL HNO ID: [id number] Author: Mary Carlisle MD Service: General Surgery Author Type: Physician Type: HANDP Filed: 09/04/2022 10:38 AM Note Text: HISTORY AND PHYSICAL Lakshmi Mcgee 1995 REFERRING [...] She also states that her throat feels swollen. She also points to pain in the LUQ of her abdomen and states that she notes swelling in this area. She was seen in the ED [facility] and prescribed prilosec which she has not [...] at all these locations. PAST MEDICAL HISTORY PAST MEDICAL HISTORY Diagnosis Date Depression Hypothyroidism, acquired 07/12/2021 Obesity, Class III, BMI 40-49.9 (morbid obesity) (HCC) 02/22/2021 Pes cavus 07/12/2021 PAST SURGICAL HISTORY PAST SURGICAL HISTORY Procedure Laterality Date CYST/MOLE [...] daily. ALLERGIES: Azithromycin and Megestrol PERSONAL HISTORY: SOCIAL HISTORY Social History Tobacco Use Smoking status: Never Smokeless tobacco: Never Vaping Use Vaping Use: Never used Substance Use Topics Alcohol use: Not Currently Drug use: Never FAMILY HISTORY FAMILY HISTORY Problem Relation Age of Onset [...] entered by the nurse and reviewed by tn Nursing Notes: Letty Noriega RN 06/24/2022 2:25 [...] problems, denies black or tarry stools, denies hemorr (more content not included)... Normal [facility] NURSING PROGon 09-04-2022 NURSING PROG HNO ID: [id number] Author: Rossy Campbell RN Service: Nursing Author Type: Registered Nurse Type: Nursing Progress Note Filed: 09/04/2022 12:38 PM Note Text: Other: Patient homegoing instructions reviewed with patient and given to patient by Kam Roman RN. Patient verbalizes understanding of instructions given. Patient denies nausea. No complaints of sore throat. Normal [facility] OPERATIVE NOon 09-04-2022 OPERATIVE NO HNO ID: [id number] Author: Mary Carlisle MD Service: General Surgery Author Type: Physician Type: Operative Report Filed: 09/05/2022 7:19 AM Note Text: [facility] - Operative Report - ALKSHMI Pete : 1995 AGE: 26. SEX: F PATIENT TYPE: O HOSP SVC: LOCATION: ATTENDING PHYSICIAN: PAWAN MALLOY [facility] NUMBER: [id number] DATE OF SURGERY/PROCEDURE: 09/04/2022 INCISION/PROCEDURE START TIME: 11:51 AM INCISION CLOSE/PROCEDURE END TIME: 11:56 AM PREOPERATIVE DIAGNOSIS: Epigastric abdominal pain. POSTOPERATIVE DIAGNOSIS: Epigastric abdominal pain. SURGEON: Mary Carlisle MD TABLET REPAIR: No Additional Staff SURGERY/PROCEDURE: Esophagogastroduodenoscopy with biopsies. ANESTHESIA: Monitored anesthesia care. LOCATION: [facility]. INDICATIONS: Lakshmi Mcgee is a 26-year-old white female, who presents with complaints of acid reflux symptoms and also notes substernal chest pain after eating. She also notes epigastric abdominal pain. She has been counseled for an esophagogastroduodenoscopy. She has been counseled of the risks of procedure including but not limited to infection, bleeding, perforation, GI tract, inability to complete the procedure, etc. The patient understands and agrees to proceed. DESCRIPTION OF PROCEDURE: After informed consent was given, the patient was brought to the endoscopy suite. Appropriate time-out protocol was followed. The patient was given IV anesthesia by the anesthesia provider. The posterior pharynx was sprayed with local anesthetic. Bite block was placed. The patient was placed in the left lateral decubitus position. The endoscope was lubricated and carefully inserted in the patient's mouth and easily advanced in the patient's esophagus, then into the stomach, past the pylorus into the second portion of the duodenum. No masses, polyps, or lesions were noted in the duodenum. The endoscope was retracted back into the stomach. There was no evidence of any ulcers or stomach irritation. Because of the patient's complaint, mucosal biopsies were taken using cold grasper forceps of the antrum of the stomach. Retroflexed view into the fundus of the body and the body of stomach revealed no evidence of any hiatal hernia or any masses, polyps, or ulcers in stomach. The endoscope was then retracted back into the esophagus. The GE junction appeared normal. However, because of the patient's complaint, mucosal biopsies were taken using cold grasper forceps. The remainder of the esophagus appeared normal. The endoscope was removed intact. The patient tolerated the procedure well, was brought to recovery room in stable condition. ESTIMATED BLOOD LOSS: Minimal. SPECIMENS: Mucosal biopsy of antrum of stomach, and GE junction. COMPLICATIONS: None. Mary Carlisle MD LW:[id number] /[id number] Normal [facility] SURGICAL PATHOLOGYon 023 CASE REPORT Normal [facility] Comment on above: Order Comment: Speci prisca Type: TISSUE SPECIMEN Ordering Facility: [facility] Address: [address] [place] [address] Result Comment: Surg ical Pathology Report Case: [id number] Authorizing Provider: Mary Carlisle MD Collected: 09/04/2022 11:53 AM Ordering Location: [facility] SURGERY Received: 09/04/2022 02:49 PM Pathologist: Margaret Raman MD Specimens: A) - ANTRUM (STOMACH) BIOPSY B) - ESOPHAGOGASTRIC JUNCTION BIOPSY Performed By: #### S #### [facility] CLIA [id number] [address] FINAL DIAGNOSIS Normal [facility] Comment on above: Order Comment: Speci prisca Type: TISSUE SPECIMEN Ordering Facility: [facility] Address: [address] [place] [address] Result Comment: A. A ntrum (stomach), biopsy: -- Antral type gastric mucosa with change of reactive gastropathy. -- No morphologic evidence of H. pylori organisms identified on H&E sections. B. Esophagogastric junction, biopsy: -- Squamous mucosa with features suggestive of reflux esophagitis. -- Glandular type mucosa with chronic inflammation, negative for intestinal metaplasia. Performed By: #### S #### [facility] CLIA [id number] [address] OF [facility] FINAL PERFORMING LAB Normal [facility] Comment on above: Order Comment: Speci prisca Type: TISSUE SPECIMEN Ordering Facility: [facility] Address: [address] [place] [address] Result Comment: Diag nostic interpretation performed at [facility], [address] [place] [address] CLIA# [id number] Business Operations Analyst: Arnold Spann M.D. Performed By: #### S #### [facility] CLIA [id number] [address] [place] [address] [place] GROSS DESCRIPTION Normal [facility] Comment on above: Order Comment: Speci men Type: TISSUE SPECIMEN Ordering Facility: [facility] Address: [address], [place] [address] Result Comment: A. A NTRUM (STOMACH) BIOPSY A. Received in formalin labeled antrum stomach biopsy are multiple duran soft segments of tissue aggregating to 0.7 x 0.2 x 0.1 cm. The specimens are totally submitted in formalin in 1 cassette. B. ESOPHAGOGASTRIC JUNCTION BIOPSY B. Received in formalin labeled esophagogastric junction biopsy is a white-duran soft segment of tissue measuring 0.4 x 0.2 x 0.1 cm. The specimen is totally submitted in formalin in 1 cassette. Gross examination performed at [facility], [address] [place] [address] KVB September 05, 2022 10:10 AM Performed By: #### S #### [facility] CLIA [id number] [address] [place] [address] [place] Absolute lymphocyte countOrd ered By: Batool Ramesh on 09-03-2022 Lymphocytes Auto (Unsp spec) [#/Vol] 2.11 10*3/uL 0.83-4.51 [facility] Basophil percentageOrdered B y: Batool Ramesh on 09-03-2022 Basophils/100 WBC (Bld) 0.6 % 0-1 [facility] Eosinophils/100 WBC (Bld) 1.0 % 0-5 [facility] Neutrophils (Bld) [#/Vol] 6.7 10*3/uL 2.0-7.7 [facility] Neutrophils/100 WBC (Bld) 70.2 % 47-70 [facility] Testosterone [Mass/Vol] 33 ng/dL 13-71 [facility] WBC (Bld) [#/Vol] 9.6 10*3/uL 4.4-11.0 [facility] Blood erythrocytes count (nu mber/volume)Ordered By: Batool Ramesh on 09-03-2022 RBC (Bld) [#/Vol] 4.58 10*6/uL 4.2-5.4 [facility] Blood hemoglobin measurement (mass/volume)Ordered By: Batool Ramesh on 09-03-2022 Hemoglobin (Bld) [Mass/Vol] 13.5 g/dL 12.0-15.0 [facility] Blood lymphocytes/100 leukoc ytesOrdered By: Batool Ramesh on 09-03-2022 Lymphocytes/100 WBC (Bld) 22.1 % 19-41 [facility] Blood monocytes/100 leukocyt esOrdered By: Batool Ramesh on 09-03-2022 Monocytes/100 WBC (Bld) 5.1 % 0-10 [facility] Blood platelet mean volumeOr dered By: Batool Ramesh on 09-03-2022 Platelet mean volume (Bld) [Entitic vol] 9.0 fL 6.2-12.0 [facility] Determination of erythrocyte mean corpuscular volume (MCV)Ordered By: Batool Ramesh on 09-03-2022 MCV (RBC) [Entitic vol] 93.0 fL 81-99 [facility] Free testosterone percentage Ordered By: Batool Ramesh on 09-03-2022 Testosterone Free/Testosterone.tota l [Mass fraction] 1.42 % 0.50-2.80 [facility] Comment on above: Performed at: [address] [id number] Director: David Grossman PhD, Phone: [phone] at: [facility] [id number] Director: Wong Mosqueda MD, Phone: [phone] Hematocrit Auto (Bld) [Volum e fraction]Ordered By: Batool Ramesh on 09-03-2022 Hematocrit (Bld) [Volume fraction] 42.6 % 37-47 [facility] Laboratory - Hematology and Cell countsOrdered By: Batool Ramesh on 09-03-2022 Erythrocyte distribution width (RBC) [Entitic vol] 45.3 fL 35.1-43.9 [facility] Erythrocyte distribution width (RBC) [Ratio] 13.3 % 11.6-14.6 [facility] Immature granulocytes/100 WBC (Bld) 1.000 % 0.0-0.9 [facility] Comment on above: IG% - Immature Granu locytes (promyelocytes, myelocytes and metamyelocytes) > 1% indicates that a LEFT SHIFT is Present. MCH (RBC) [Entitic mass] 29.5 pg 27.0-32.0 [facility] Nucleated RBC/100 WBC (Bld) [Ratio] 0 % 0-5 [facility] MCHC Auto (RBC) [Mass/Vol]Or dered By: Batool Ramesh on 09-03-2022 MCHC (RBC) [Mass/Vol] 31.7 g/dL 32-36 [facility] No Panel InformationOrdered By: Batool Ramesh on 09-03-2022 Follicle Stimulating Hormone 5.7 mIU/mL [facility] Comment on above: NORMAL REFERENCE RAN GES FEMALE FOLLICULAR 2.3 - 12.6 mIU/mL MID-CYCLE PEAK 5.2 - 17.5 mIU/mL LUTEAL 1.7 - 12.9 mIU/mL POST-MENOPAUSAL ON MHT 5.9 - 72.8 mIU/mL NOT ON MHT 12.7 - 132.2 mlU/mL MALE 0.7 - 10.8 mIU/mL Luteinizing Hormone 8.0 mIU/mL [facility] Comment on above: NORMAL REFERENCE RAN GES FEMALE FOLLICULAR 1.9 - 26.2 mIU/mL MID-CYCLE PEAK 22.8 - 76.1 mIU/mL LUTEAL 0.6 - 16.6 mIU/mL POST-MENOPAUSAL ON MHT 1.1 - 52.4 mIU/mL NOT ON MHT 8.6 - 61.8 mIU/mL MALE 1.2 - 10.6 mIU/mL Platelets bldOrdered By: Nida Ramesh on 09-03-2022 Platelets (Bld) [#/Vol] 354 10*3/uL 150-450 [facility] Serum or plasma estradiol (E 2) measurement (mass/volume)Ordered By: Batool Ramesh on 09-03-2022 E2 [Mass/Vol] 62.9 pg/mL [facility] Comment on above: NORMAL REFERENCE RAN GES FEMALE FOLLICULAR 21.4 - 164.8 pg/mL MID-CYCLE PEAK 49.9 - 367.2 pg/mL LUTEAL 40.2 - 259.0 pg/mL POST-MENOPAUSAL ON MHT <11.0 - 462.1 pg/mL NOT ON MHT <11.0 - 58.3 pg/mL MALE <11.0 - 52.5 pg/mL NOTE:[employer] HAS CONFIRMED THE DRUG FULVETRANT (FASLODEX) MAY CAUSE FALSELY ELEVATED ESTRADIOL RESULTS WHEN USING THIS TEST METHOD. IF PATIENT IS TAKING FULVESTRANT AN ALTERNATIVE METHOD SHOULD BE USED TO DETERMINE ESTRADIOL CONCENTRATION. Serum or plasma progesterone measurement (mass/volume)Ordered By: Batool Ramesh on 09-03-2022 Progesterone [Mass/Vol] 0.50 ng/mL See Comment [facility] Comment on above: Progesterone Referen ce Table: UNITS Female: Follicular 0.15 - 1.40 ng/mL Luteal 3.34 - 25.56 ng/mL Mid-luteal 4.44 - 28.03 ng/mL Postmenopausal 0.0 - 0.73 ng/mL : 1st Trimester 11.22 - 90.00 ng/mL 2nd Trimester 25.55 - 89.40 ng/mL 3rd Trimester 48.40 -422.50 ng/mL Serum or plasma prolactin me asurement (mass/volume)Ordered By: Batool Ramesh on 09-03-2022 Prolactin [Mass/Vol] 7.2 ng/mL [facility] Comment on above: NORMAL REFERENCE RAN GES FEMALE NON- 2.2 - 30.3 ng/mL 8.1 - 347.6 ng/mL POST-MENOPAUSAL 0.7 - 31.5 ng/mL MALE 2.5 - 17.4 ng/mL Serum or plasma testosterone free measurement (mass/volume)Ordered By: Batool Ramesh on 09-03-2022 Testosterone Free [Mass/Vol] 0.47 ng/dL 0.10-0.85 [facility] NURSING PROGon 08-28-2022 NURSING PROG HNO ID: [id number] Author: Jesus Osman RN Service: ? Author Type: Registered Nurse Type: Nursing Progress Note Filed: 08/28/2022 11:50 AM Note Text: Pre-Procedure Checklist Lakshmi Mcgee [phone] (home) [phone] (work) 1995 26 year old Body mass index is 46.45 kg/m?. Allergies: Azithromycin GI Upset Megestrol Unknown Procedure: EGD Date of Procedure: 08/29/2022 Smoke: No Alcohol: No Street Drugs: No Diabetic: No Insulin: No Problems with Anesthesia (Self or Family?) No Ground Systems Engineer: Lou Saw elect equip maint eng in the last 6 months? Yes Recent [...] that she is almost always short of breath. Pt notified that anesthesia will likely want a cardiac clearance. Pt verbalizes understanding. Normal [facility] 2018 CORONAVIRUSon SARS-CoV-2 (COVID-19) RNA ABDIAS+probe Ql (Resp) Not detected See comment [facility] No Panel Informationon 06-24 [facility] No Panel Informationon 06-[address] [facility] [address] CHEST WO IVCONon 06-10-19 [facility] CBC W Auto Differential pane l (Bld)on 05-23-2022 Basophils (Bld) [#/Vol] 0.06 10*3/uL <0.11 k/uL [facility] Basophils/100 WBC (Bld) 0.5 % [facility] Differential cell count method Nom (Bld) Auto [facility] Eosinophils (Bld) [#/Vol] 0.15 10*3/uL <0.46 k/uL [facility] Eosinophils/100 WBC (Bld) 1.3 % [facility] Erythrocyte distribution width (RBC) [Ratio] 13.7 % 11.5 - 15.0 % [facility] Hematocrit (Bld) [Volume fraction] 39.8 % 36.0 - 46.0 % [facility] Hemoglobin (Bld) [Mass/Vol] 12.6 g/dL 11.5 - 15.5 g/dL [facility] Immature granulocytes (Bld) [#/Vol] 0.11 10*3/uL High <0.10 k/uL [facility] Immature granulocytes/100 WBC (Bld) 1.0 % [facility] Lymphocytes (Bld) [#/Vol] 3.49 10*3/uL 1.00 - 4.00 k/uL [facility] Lymphocytes/100 WBC (Bld) 30.2 % [facility] MCH (RBC) [Entitic mass] 29.2 pg 26.0 - 34.0 pg [facility] MCHC (RBC) [Mass/Vol] 31.7 g/dL 30.5 - 36.0 g/dL [facility] MCV (RBC) [Entitic vol] 92.3 fL 80.0 - 100.0 fL [facility] Monocytes (Bld) [#/Vol] 0.57 10*3/uL <0.87 k/uL [facility] Monocytes/100 WBC (Bld) 4.9 % [facility] Neutrophils (Bld) [#/Vol] 7.18 10*3/uL 1.45 - 7.50 k/uL [facility] Neutrophils/100 WBC (Bld) 62.1 % [facility] Nucleated RBC (Bld) [#/Vol] <0.01 k/uL [facility] Nucleated RBC/100 WBC (Bld) [Ratio] 0.0 /100 WBC [facility] Platelet mean volume (Bld) [Entitic vol] 9.3 fL 9.0 - 12.7 fL [facility] Platelets (Bld) [#/Vol] 378 10*3/uL 150 - 400 k/uL [facility] RBC (Bld) [#/Vol] 4.31 10*6/uL 3.90 - 5.20 m/uL [facility] WBC (Bld) [#/Vol] 11.56 10*3/uL High 3.70 - 11.00 k/uL [facility] ESR Westergren method (Bld) [Velocity]on 05-23-2022 ESR (Bld) [Velocity] 56 mm/h High 0 - 20 mm/hr [facility] No Panel Informationon 05-23 [facility] XR Chest PA and Lateralon IMPRESSION: Interstitial opacities with peribronchial thickening likely related to airways inflammation. Access Specialist: TALAT Transcribe Date/Time: May 21 2022 1:57P Dictated by : CHRIS AREVALO MD This examination was interpreted and the report reviewed and electronically signed by: CHRIS AREVALO MD on May 21 2022 1:57PM EST DIVISION OF RADIOLOGY * * *Final Report* * * DATE OF EXAM: May 21 2022 11:29AM WOX 5291 - XR CHEST 2V FRONTAL/LAT / PROCEDURE REASON: Abnormal x-ray * * * * Physician Interpretation * * * * EXAMINATION: CHEST RADIOGRAPH (2 VIEW FRONTAL & LATERAL) CLINICAL HISTORY: Abnormal x-ray MQ: XC2_6 EXAM DATE/TIME: 05/21/2022 11:29 AM COMPARISON: 05/05/2022 RESULT: Lines, tubes, and devices: None. Lungs and pleura: No consolidation. No lung mass. No pleural effusion. No pneumothorax. Mild peribronchial thickening Cardiomediastinal silhouette: Normal cardiomediastinal silhouette. Bones and soft tissues: Unremarkable. DIVISION OF RADIOLOGY Provider, [facility] - 05/21/2022 * * *Final Report* * * DATE OF EXAM: May 21 2022 11:29AM WOX 5291 - XR CHEST 2V FRONTAL/LAT / PROCEDURE REASON: Abnormal x-ray * * * * Physician Interpretation * * * * EXAMINATION: CHEST RADIOGRAPH (2 VIEW FRONTAL & LATERAL) CLINICAL HISTORY: Abnormal x-ray MQ: XC2_6 EXAM DATE/TIME: 05/21/2022 11:29 AM COMPARISON: 05/05/2022 RESULT: Lines, tubes, and devices: None. Lungs and pleura: No consolidation. No lung mass. No pleural effusion. No pneumothorax. Mild peribronchial thickening Cardiomediastinal silhouette: Normal cardiomediastinal silhouette. Bones and soft tissues: Unremarkable. IMPRESSION IMPRESSION: Interstitial opacities with peribronchial thickening likely related to airways inflammation. Access Specialist: PSCB Transcribe Date/Time: May 21 2022 1:57P Dictated by : CHRIS AREVALO MD This examination was interpreted and the report reviewed and electronically signed by: CHRIS AREVALO MD on May 21 2022 1:57PM EST [facility] Radiology Study observation (narrative) [facility] XR Chest PA and LateralOrder ed By: [facility]cf Provider on 05-21-2022 [facility] NM CARDIAC PERF STRESS/EXERC ISEon 05-19-2022 [facility] CBC W Auto Differential pane l (Bld)on 05-05-2022 Basophils (Bld) [#/Vol] 0.04 10*3/uL <0.11 k/uL [facility] Basophils/100 WBC (Bld) 0.4 % [facility] Differential cell count method Nom (Bld) Auto [facility] Eosinophils (Bld) [#/Vol] 0.12 10*3/uL <0.46 k/uL [facility] Eosinophils/100 WBC (Bld) 1.2 % [facility] Erythrocyte distribution width (RBC) [Ratio] 13.2 % 11.5 - 15.0 % [facility] Hematocrit (Bld) [Volume fraction] 44.3 % 36.0 - 46.0 % [facility] Hemoglobin (Bld) [Mass/Vol] 14.2 g/dL 11.5 - 15.5 g/dL [facility] Immature granulocytes (Bld) [#/Vol] 0.08 10*3/uL <0.10 k/uL [facility] Immature granulocytes/100 WBC (Bld) 0.8 % [facility] Lymphocytes (Bld) [#/Vol] 2.64 10*3/uL 1.00 - 4.00 k/uL [facility] Lymphocytes/100 WBC (Bld) 26.8 % [facility] MCH (RBC) [Entitic mass] 28.7 pg 26.0 - 34.0 pg [facility] MCHC (RBC) [Mass/Vol] 32.1 g/dL 30.5 - 36.0 g/dL [facility] MCV (RBC) [Entitic vol] 89.5 fL 80.0 - 100.0 fL [facility] Monocytes (Bld) [#/Vol] 0.62 10*3/uL <0.87 k/uL [facility] Monocytes/100 WBC (Bld) 6.3 % [facility] Neutrophils (Bld) [#/Vol] 6.34 10*3/uL 1.45 - 7.50 k/uL [facility] Neutrophils/100 WBC (Bld) 64.5 % [facility] Nucleated RBC (Bld) [#/Vol] <0.01 k/uL [facility] Nucleated RBC/100 WBC (Bld) [Ratio] 0.0 /100 WBC [facility] Platelet mean volume (Bld) [Entitic vol] 9.0 fL 9.0 - 12.7 fL [facility] Platelets (Bld) [#/Vol] 371 10*3/uL 150 - 400 k/uL [facility] RBC (Bld) [#/Vol] 4.95 10*6/uL 3.90 - 5.20 m/uL [facility] WBC (Bld) [#/Vol] 9.84 10*3/uL 3.70 - 11.00 k/uL [facility] No Panel InformationOrdered By: [facility] Provider on 05-05-2022 Radiology Result ACTIONABLE Abnormal [facility] Comment on above: This report contains an incidental or actionable finding. This finding may be a new finding separate from the reason your provider ordered the imaging test or it may be an already known finding that needs additional or continued follow-up. Because of this incidental or actionable finding, you may need another test (imaging or a different type of test). Please contact your provider for the next steps. XR Chest PA and LateralOrder ed By: Cc Provider on 05-05-2022 Interpretation and review of laboratory results Abnormal [facility] XR Chest PA and Lateralon IMPRESSION: No acute radiographic abnormality. No evidence of pulmonary edema. Mild scattered reticulonodular opacities in the mid to lower lungs may be post infectious or post inflammatory. Follow-up chest x-ray can be performed to ascertain resolution. ACTIONABLE RESULT: FOLLOW-UP Acuity: Actionable Findings: Thoracic-Other Routing Code: CT_1 Recommendation: XR Chest 2 view Time Frame: At the discretion of the clinical team. COMMUNICATION: Results will be communicated with the ordering provider via [employer] staff message or phone message by [employer] within 2 business days of report finalization. ======== Algorithms for management of incidental imaging findings can be found on the [facility] Intranet Sharepoint site at: [email or web address] [email or web address]/Managing%2 0Incidental%20Findi ngs%20at%20Imaging/Forms/All Items.aspx Access Specialist: TALAT Transcribe Date/Time: May 05 2022 1:38P Dictated by : SHANIA BURGOS MD This examination was interpreted and the report reviewed and electronically signed by: SHANIA BURGOS MD on May 05 2022 1:45PM [facility] DIVISION OF RADIOLOGY * * *Final Report* * * DATE OF EXAM: May 05 2022 12:38PM WOX 5291 - XR CHEST 2V FRONTAL/LAT / PROCEDURE REASON: multiple diagnoses * * * * Physician Interpretation * * * * EXAMINATION: CHEST RADIOGRAPH (2 VIEW FRONTAL & LATERAL) CLINICAL HISTORY: Tachycardia, unspecified Edema, unspecified type MQ: XC2_6 EXAM DATE/TIME: 05/05/2022 12:38 PM COMPARISON: No relevant prior studies available. RESULT: Lines, tubes, and devices: None. Lungs and pleura: Mild scattered reticulonodular opacities in the mid to lower lungs. No consolidation. No lung mass. No pleural effusion. No pneumothorax. Cardiomediastinal silhouette: Normal cardiomediastinal silhouette. Bones and soft tissues: Unremarkable. DIVISION OF RADIOLOGY Provider, [facility] - 05/05/2022 * * *Final Report* * * DATE OF EXAM: May 05 2022 12:38PM WOX 5291 - XR CHEST 2V FRONTAL/LAT / PROCEDURE REASON: multiple diagnoses * * * * Physician Interpretation * * * * EXAMINATION: CHEST RADIOGRAPH (2 VIEW FRONTAL & LATERAL) CLINICAL HISTORY: Tachycardia, unspecified Edema, unspecified type MQ: XC2_6 EXAM DATE/TIME: 05/05/2022 12:38 PM COMPARISON: No relevant prior studies available. RESULT: Lines, tubes, and devices: None. Lungs and pleura: Mild scattered reticulonodular opacities in the mid to lower lungs. No consolidation. No lung mass. No pleural effusion. No pneumothorax. Cardiomediastinal silhouette: Normal cardiomediastinal silhouette. Bones and soft tissues: Unremarkable. IMPRESSION IMPRESSION: No acute radiographic abnormality. No evidence of pulmonary edema. Mild scattered reticulonodular opacities in the mid to lower lungs may be post infectious or post inflammatory. Follow-up chest x-ray can be performed to ascertain resolution. ACTIONABLE RESULT: FOLLOW-UP Acuity: Actionable Findings: Thoracic-Other Routing Code: CT_1 Recommendation: XR Chest 2 view Time Frame: At the discretion of the clinical team. COMMUNICATION: Results will be communicated with the ordering provider via [employer] staff message or phone message by [employer] within 2 business days of report finalization. ======== Algorithms for management of incidental imaging findings can be found on the [facility] Intranet Sharepoint site at: http://[email or web address]/documenta tion/[email or web address]/Managing%2 0Incidental%20Findi ngs%20at%20Imaging/Forms/All Items.aspx Access Specialist: TALAT Transcribe Date/Time: May 05 2022 1:38P Dictated by : SHANIA BURGOS MD This examination was interpreted and the report reviewed and electronically signed by: SHANIA BURGOS MD on May 05 2022 1:45PM EST [facility] Radiology Study observation (narrative) [facility] Absolute lymphocyte counton 12-04-2021 Lymphocytes Auto (Unsp spec) [#/Vol] 2.21 10*3/uL 0.83-4.51 [facility] Work Phone: [phone] Basophil percentageon 2021 Basophils/100 WBC (Bld) 0.3 % 0-1 [facility] Work Phone: [phone] Chloride [Moles/Vol] 104 mmol/L 98-107 [facility] Work Phone: Eosinophils/100 WBC (Bld) 1.1 % 0-5 [facility] Work Phone: [phone] Glucose [Mass/Vol] 110 mg/dL 74-106 [facility] Work Phone: [phone] Comment on above: Fasting Glucose resu lt from 100 to 125 mg/dL suggests IMPAIRED HOMEOSTASIS per A.D.A. criteria. Neutrophils (Bld) [#/Vol] 10.1 10*3/uL 2.0-7.7 [facility] Work Phone: Neutrophils/100 WBC (Bld) 76.9 % 47-70 [facility] Work Phone: Potassium [Moles/Vol] 3.8 mmol/L 3.5-5.1 [facility] Work Phone: Sodium [Moles/Vol] 139 mmol/L 136-145 [facility] Work Phone: WBC (Bld) [#/Vol] 13.1 10*3/uL 4.4-11.0 [facility] Work Phone: Beta hCG serum qualon 2021 Beta HCG ( test) Ql Negative [facility] Work Phone: Blood erythrocytes count (nu mber/volume)on 12-04-2021 RBC (Bld) [#/Vol] 4.99 10*6/uL 4.2-5.4 [facility] Work Phone: [phone] Blood hemoglobin measurement (mass/volume)on 12-04-2021 Hemoglobin (Bld) [Mass/Vol] 14.8 g/dL 12.0-15.0 [facility] Work Phone: Blood lymphocytes/100 leukoc yteson 12-04-2021 Lymphocytes/100 WBC (Bld) 16.9 % 19-41 [facility] Work Phone: Blood monocytes/100 leukocyt eson 12-04-2021 Monocytes/100 WBC (Bld) 3.7 % 0-10 [facility] Work Phone: Blood platelet mean volumeon 12-04-2021 Platelet mean volume (Bld) [Entitic vol] 9.0 fL 6.2-12.0 [facility] Work Phone: [phone] Determination of erythrocyte mean corpuscular volume (MCV)on 12-04-2021 MCV (RBC) [Entitic vol] 91.4 fL 81-99 [facility] Work Phone: [phone] Fibrin D-dimer FEU (PPP) [Ma ss/Vol]on 09-07-2022 Fibrin D-dimer FEU IA (Bld) [Mass/Vol] 4.14 ug/mL [facility] Hematocrit Auto (Bld) [Volum e fraction]on 12-04-2021 Hematocrit (Bld) [Volume fraction] 45.6 % 37-47 [facility] Work Phone: Laboratory - Chemistry and C hemistry - challengeon 12-04-2021 CO2 [Moles/Vol] 25.0 mmol/L 21.0-32.0 [facility] Work Phone: Urea nitrogen/Creatinine [Mass ratio] 10.2 mg/mg 10-20 [facility] Work Phone: Laboratory - Hematology and Cell countson 12-04-2021 Erythrocyte distribution width (RBC) [Entitic vol] 45.9 fL 35.1-43.9 [facility] Work Phone: Erythrocyte distribution width (RBC) [Ratio] 13.9 % 11.6-14.6 [facility] Work Phone: Immature granulocytes/100 WBC (Bld) 1.100 % 0.0-0.9 [facility] Work Phone: Comment on above: IG% - Immature Granu locytes (promyelocytes, myelocytes and metamyelocytes) > 1% indicates that a LEFT SHIFT is Present. MCH (RBC) [Entitic mass] 29.7 pg 27.0-32.0 [facility] Work Phone: Nucleated RBC/100 WBC (Bld) [Ratio] 0 % 0-5 [facility] Work Phone: MCHC Auto (RBC) [Mass/Vol]on 12-04-2021 MCHC (RBC) [Mass/Vol] 32.5 g/dL 32-36 [facility] Work Phone: No Panel Informationon 12-04 D-Dimer Quantitative (PE/DVT) 6.33 FEU/ug/m 0.27-0.49 [facility] Work Phone: Comment on above: D-Dimer ELEVATED (>0 .49): Additional studies and clinicalassessments are indicated to conclude diagnosis of:Deep Vein Thrombosis (DVT) or Pulmonary Embolism (PE)CRITICAL VALUE VERIFIED. CALLED TO FAUSTO DIEGO12/04/21 1910 Jose Ramos.RESULTS READ BACK BY SAME . Estimated Creatinine Clearance Calc 159.12 ml/min [facility] Work Phone: Estimated GFR (MDRD) Amer 98 mL/min >60 [facility] Work Phone: Comment on above: GFR Calc Estimated GFR (MDRD) Non-Af Amer 81 mL/min >60 [facility] Work Phone: Comment on above: Non- GFR Calc D-Dimer Quantitative (PE/DVT) 4.14 FEU/ug/m 0.27-0.49 [facility] Work Phone: Comment on above: D-Dimer ELEVATED (>0 .49): Additional studies and clinicalassessments are indicated to conclude diagnosis of:Deep Vein Thrombosis (DVT) or Pulmonary Embolism (PE)CRITICAL VALUE VERIFIED. CALLED TO SHAVONNE ACUÑA12/04/21 1558 Ronal Matt.RESULTS READ BACK BY SAME . Platelets bldon 12-04-2021 Platelets (Bld) [#/Vol] 316 10*3/uL 150-450 [facility] Work Phone: Serum or plasma calcium malka urement (mass/volume)on 12-04-2021 Calcium [Mass/Vol] 10.1 mg/dL 8.5-10.1 [facility] Work Phone: Serum or plasma creatinine m easurement (mass/volume)on 12-04-2021 Creatinine [Mass/Vol] 0.88 mg/dL 0.55-1.02 Raymond ster [facility] Work Phone: Comment on above: The validity of the calculated GFR & GFRAA in patients over 70 years has not been determined. Clinical correlation is essential. Serum or plasma urea nitroge n measurement (mass/volume)on 12-04-2021 Urea nitrogen [Mass/Vol] 9 mg/dL 7-18 [facility] Work Phone: Thin prep Papanicolaou smear with manual screeningon 12-04-2021 Thin prep Papanicolaou smear with manual screening 10 5-15 [facility] Work Phone: Cervical or vagninal specime n microscopic examination by cytology stain (reported ason 07-11-2021 Cytology report Cyto stain Doc (Cvx/Vag) Comment [facility] Work Phone: Comment on above: The Pap smear is a s creening test designed to aid in thedetection of premalignant and malignant conditions of theuterine cervix. It is not a diagnostic procedure andshould not be used as the sole means of detecting cervicalcancer. Both false-positive and false-negative reports dooccur. Laboratory - Cytologyon 06-28 Assembl[employer] D[employer] [place] Cyto stain Nom (Cvx/Vag) [ID] Comment [facility] Work Phone: Comment on above: Addi Luciote chnologist (ASCP) Laboratory - Miscellaneous t estson 07-11-2021 Service comment (Unsp spec) [Interp] Comment [facility] Work Phone: Comment on above: This liquid based Th inPrep(R) pap test was screened withthe use of an image guided system. Service comment (Unsp spec) [Interp] . [facility] Work Phone: No Panel Informationon 07-11 Human Papillomavirus Screen Comment [facility] Work Phone: Comment on above: The HPV DNA reflex charity velazquez were not met with this specimenresult therefore, no HPV testing was performed.Performed at: - [address] [id number] Director: Mya Lo MD, Phone: [phone] Pap Smear QC Review Comment [facility] Work Phone: Comment on above: Charity Smithotechnologist (ASCP) Pathology report final diagnosis Narrative Comment [facility] Work Phone: Comment on above: NEGATIVE FOR INTRAEP ITHELIAL LESION OR MALIGNANCY.THIS SPECIMEN WAS RESCREENED PART OF OUR FUEL CELL REPAIRER PROGRAM. STREP A MOLECULAR (POC)on Procedural Control Valid [facility] Strep A (POCT) Negative Negative [facility] VitD, 1,25 Dihydroxyon 07-03 1,25 Dihydroxy VitD2 <4.[address] [facility] Comment on above: Performed By: #### 1 25VTD #### [facility] [address] [address] 1,25 Dihydroxy VitD3 30.0 pg/mL Normal [facility] Comment on above: Performed By: #### 1 25VTD #### [facility] [address] [address] Vit D,1,25 DiOH Normal 15.0-60.0 [facility] Comment on above: Result Comment: 30.0 This test was developed and its performance characteristics determined by [facility]'s Nathanael Joselo [facility] [place] ([facility]). It has not been cleared or approved by the FDA. [facility] is regulated under CLIA as qualified to perform high complexity testing. This test is used for clinical purposes. It should not be regarded as investigational or for research. Performed By: #### 1 25VTD #### [facility] [address] [id number] Vital Signs Date Time Vital Sign Value Performing Clinician Facility 09-16-2024 14:16-0400 Body height 149.[address] Rene Doherty MD Work Phone: [facility] 09-16-2024 14:16-0400 Body mass index (BMI) [Ratio] 52.2 kg/m2 Dr. Rene Doherty MD Work Phone: [facility] 09-16-2024 14:16-0400 Body weight 117.[address] Rene Doherty MD Work Phone: [facility] 08-23-2024 11:31-0400 Body mass index (BMI) [Ratio] 53.44 kg/m2 Helene Miranda APRN.CNP Work Phone: [facility] 08-23-2024 11:31-0400 Body temperature 98.4 [degF] Helene Miranda APRN.THEORETICAL PHYSICIST Work Phone: [facility] 08-23-2024 11:31-0400 Body weight 120.02 kg Helene Miranda APRN.THEORETICAL PHYSICIST Work Phone: [facility] 08-23-2024 11:31-0400 Diastolic blood pressure 76 mm[Hg] Helene Miranda APRN.THEORETICAL PHYSICIST Work Phone: [facility] 08-23-2024 11:31-0400 Heart rate 85 /min Helene Miranda APRN.THEORETICAL PHYSICIST Work Phone: [facility] 08-23-2024 11:31-0400 Respiratory rate 18 /min Helene Miranda APRN.THEORETICAL PHYSICIST Work Phone: [facility] 08-23-2024 11:31-0400 SaO2% (BldA) [Mass fraction] 98 % Helene Miranda APRN.THEORETICAL PHYSICIST Work Phone: [facility] 08-23-2024 11:31-0400 Systolic blood pressure 110 mm[Hg] Helene Miranda APRN.THEORETICAL PHYSICIST Work Phone: [facility] 07-25-2024 12:32-0400 Body mass index (BMI) [Ratio] 52.7 kg/m2 Dr. Rene Doherty MD Work Phone: [facility] 07-25-2024 12:32-0400 Body weight 118.[address] Rene Doherty MD Work Phone: [facility] 07-25-2024 12:32-0400 Diastolic blood pressure 67 mm[Hg] Dr. Rene Doherty MD Work Phone: [facility] 07-25-2024 12:32-0400 Systolic blood pressure 103 mm[Hg] Dr. Rene Doherty MD Work Phone: [facility] 06-13-2024 07:44-0400 Body mass index (BMI) [Ratio] 52.7 kg/m2 Dr. Rene Doherty MD Work Phone: [facility] 06-13-2024 07:44-0400 Body weight 118.[address] Rene Doherty MD Work Phone: [facility] 06-13-2024 07:44-0400 Diastolic blood pressure 80 mm[Hg] Dr. Rene Doherty MD Work Phone: [facility] 06-13-2024 07:44-0400 Heart rate 98 /min Dr. Rene Doherty MD Work Phone: [facility] 06-13-2024 07:44-0400 Respiratory rate 18 /min Dr. Rene Doherty MD Work Phone: [facility] 06-13-2024 07:44-0400 SaO2% (BldA) [Mass fraction] 100 % Dr. Rene Doherty MD Work Phone: [facility] 06-13-2024 07:44-0400 Systolic blood pressure 120 mm[Hg] Dr. Rene Doherty MD Work Phone: [facility] 03-30-2023 14:52-0500 Diastolic blood pressure 56 mm[Hg] [facility] 03-30-2023 14:52-0500 Heart rate 100 /min [facility] 03-30-2023 14:52-0500 Respiratory rate 20 /min [facility] 03-30-2023 14:52-0500 SaO2% (BldA) [Mass fraction] 93 % [facility] 03-30-2023 14:52-0500 Systolic blood pressure 109 mm[Hg] [facility] 03-30-2023 13:14-0500 Body height 149.[address] [facility] 03-30-2023 13:14-0500 Body mass index (BMI) [Ratio] 51.3 kg/m2 [facility] 03-30-2023 13:14-0500 Body temperature 97.2 [degF] [facility] 03-30-2023 13:14-0500 Body weight 115.[address] [facility] 01-12-2023 11:22-0400 Body height 149.9 cm Raeann Interiano MD Work Phone: [facility] 01-12-2023 11:22-0400 Body weight 114.94 kg Raeann Interiano MD Work Phone: [facility] 01-12-2023 11:22-0400 Diastolic blood pressure 77 mm[Hg] Raeann Interiano MD Work Phone: [facility] 01-12-2023 11:22-0400 Heart rate 94 /min Raeann Interiano MD Work Phone: [facility] 01-12-2023 11:22-0400 Respiratory rate 97 /min Raeann Interiano MD Work Phone: [facility] 01-12-2023 11:22-0400 Systolic blood pressure 115 mm[Hg] Raeann Interiano MD Work Phone: [facility] 09-12-2022 13:45-0400 Body height 149.9 cm Cassy Plattville PA-C Work Phone: [facility] 09-12-2022 13:45-0400 Body temperature 97.9 [degF] Cassy Maribel PA-C Work Phone: [facility] 09-12-2022 13:45-0400 Body weight 109.32 kg Cassy Maribel PA-C Work Phone: [facility] 09-12-2022 13:45-0400 Diastolic blood pressure 78 mm[Hg] Cassy Maribel PA-C Work Phone: [facility] 09-12-2022 13:45-0400 Heart rate 120 /min Cassy Maribel PA-C Work Phone: [facility] 09-12-2022 13:45-0400 SaO2% (BldA) [Mass fraction] 94 % Cassy Plattville PA-C Work Phone: [facility] 09-12-2022 13:45-0400 Systolic blood pressure 130 mm[Hg] Cassy Maribel PA-C Work Phone: [facility] 09-05-2022 18:55-0400 Body height 149.[address] Rene Doherty Work Phone: 6(051)647-432[address] [place] [address] 09-05-2022 18:55-0400 Body mass index (BMI) [Ratio] 48 kg/m2 Dr. Rene Doherty Work Phone: 2(610)851-965165 [place] [address] 09-05-2022 18:55-0400 Body weight [address] Rene Doherty Work Phone: 6(008)015-128865 [place] [address] 09-05-2022 17:11-0400 Body temperature 97.6 [degF] Dr. Rene Doherty Work Phone: 8(759)264-429165 [place] [address] 09-05-2022 17:11-0400 Diastolic blood pressure 78 mm[Hg] Dr. Rene Doherty Work Phone: 5(472)479-078965 [place] [address] 09-05-2022 17:11-0400 Heart rate 77 /min Dr. Rene Doherty Work Phone: 5(315)248-169565 [place] [address] 09-05-2022 17:11-0400 Respiratory rate 19 /min Dr. Rene Doherty Work Phone: 9(796)014-164465 [place] [address] 09-05-2022 17:11-0400 SaO2% (BldA) [Mass fraction] 100 % Dr. Rene Doherty Work Phone: 0(079)855-620465 [place] [address] 09-05-2022 17:11-0400 Systolic blood pressure 134 mm[Hg] Dr. Rene Doherty Work Phone: [facility] 08-28-2022 11:40-0400 Body height 149.9 cm Jesus Osman RN [facility] 08-28-2022 11:40-0400 Body weight 104.33 kg Jesus Osman RN [facility] 07-29-2022 13:04-0400 Body mass index (BMI) [Ratio] 48 kg/m2 Dr. Rene Doherty Work Phone: 0(751)100-846909 [place] [address] 07-29-2022 13:04-0400 Body weight 107.[address] Rene Doherty Work Phone: 3(637)511-101[address] [place] [address] 07-29-2022 13:04-0400 Diastolic blood pressure 76 mm[Hg] Dr. Rene Doherty Work Phone: [facility] 07-29-2022 13:04-0400 Heart rate 96 /min Dr. Rene Doherty Work Phone: [facility] 07-29-2022 13:04-0400 Respiratory rate 20 /min Dr. Rene Doherty Work Phone: [facility] 07-29-2022 13:04-0400 SaO2% (BldA) [Mass fraction] 96 % Dr. Rene Doherty Work Phone: [facility] 07-29-2022 13:04-0400 Systolic blood pressure 117 mm[Hg] Dr. Rene Doherty Work Phone: [facility] 07-21-2022 15:12-0400 Body weight 110.22 kg Rene Doherty MD Work Phone: [facility] 07-21-2022 15:12-0400 Diastolic blood pressure 62 mm[Hg] Rene Doherty MD Work Phone: [facility] 07-21-2022 15:12-0400 Heart rate 93 /min Rene Doherty MD Work Phone: [facility] 07-21-2022 15:12-0400 Respiratory rate 18 /min Rene Doherty MD Work Phone: [facility] 07-21-2022 15:12-0400 SaO2% (BldA) [Mass fraction] 98 % Rene Doherty MD Work Phone: [facility] 07-21-2022 15:12-0400 Systolic blood pressure 110 mm[Hg] Rene Doherty MD Work Phone: [facility] 07-21-2022 13:00-0400 Diastolic blood pressure 70 mm[Hg] Anushka Lemon PT [facility] 07-21-2022 13:00-0400 Systolic blood pressure 105 mm[Hg] Anushka Lemon PT [facility] 06-24-2022 14:19-0400 Body height 149.9 cm Mary Carlisle MD Work Phone: [facility] 06-24-2022 14:19-0400 Body temperature 97.7 [degF] Mary Carlisle MD Work Phone: [facility] 06-24-2022 14:19-0400 Body weight 109.77 kg Mary Carlisle MD Work Phone: [facility] 06-24-2022 14:19-0400 Diastolic blood pressure 70 mm[Hg] Mary Carlisle MD Work Phone: [facility] 06-24-2022 14:19-0400 Heart rate 120 /min Mary Carlisle MD Work Phone: [facility] 06-24-2022 14:19-0400 SaO2% (BldA) [Mass fraction] 96 % Mary Carlisle MD Work Phone: [facility] 06-24-2022 14:19-0400 Systolic blood pressure 118 mm[Hg] Mary Carlisle MD Work Phone: [facility] 06-23-2022 11:20-0400 Body weight 110.22 kg Rene Doherty MD Work Phone: [facility] 06-23-2022 11:20-0400 Diastolic blood pressure 72 mm[Hg] Rene Doherty MD Work Phone: [facility] 06-23-2022 11:20-0400 Heart rate 91 /min Rene Doherty MD Work Phone: [facility] 06-23-2022 11:20-0400 SaO2% (BldA) [Mass fraction] 98 % Rene Doherty MD Work Phone: [facility] 06-23-2022 11:20-0400 Systolic blood pressure 110 mm[Hg] Rene Doherty MD Work Phone: [facility] 06-16-2022 09:54-0400 Body height 149.9 cm Karolyn Wilson PA-C Work Phone: [facility] 06-16-2022 09:54-0400 Body weight 108.41 kg Karolyn Wilson PA-C Work Phone: [facility] 06-16-2022 09:54-0400 Diastolic blood pressure 70 mm[Hg] Karolyn Steve PA-C Work Phone: [facility] 06-16-2022 09:54-0400 Heart rate 86 /min Karolyn Steve PA-C Work Phone: [facility] 06-16-2022 09:54-0400 Respiratory rate 16 /min Karolyn Steve PA-C Work Phone: [facility] 06-16-2022 09:54-0400 SaO2% (BldA) [Mass fraction] 97 % Karolyn Steve PA-C Work Phone: [facility] 06-16-2022 09:54-0400 Systolic blood pressure 98 mm[Hg] Karolyn Steve PA-C Work Phone: [facility] 06-16-2022 09:40-0400 Body height 150.1 cm Pulm Wstr Work Phone: [facility] 06-16-2022 09:40-0400 Body weight 108.41 kg Pulm Wstr Work Phone: [facility] 06-16-2022 09:40-0400 Heart rate 87 /min Pulm Wstr Work Phone: [facility] 06-16-2022 09:40-0400 Respiratory rate 16 /min Pulm Wstr Work Phone: [facility] 06-16-2022 09:40-0400 SaO2% (BldA) [Mass fraction] 97 % Pulm Wstr Work Phone: [facility] 06-13-2022 09:45-0400 Diastolic blood pressure 68 mm[Hg] Mary Hardin BALANCE BRIDGE INSPECTOR.THEORETICAL PHYSICIST Work Phone: [facility] 06-13-2022 09:45-0400 Heart rate 86 /min Mary Tyshawnagen BALANCE BRIDGE INSPECTOR.THEORETICAL PHYSICIST Work Phone: [facility] 06-13-2022 09:45-0400 Respiratory rate 18 /min Mary Haagen BALANCE BRIDGE INSPECTOR.THEORETICAL PHYSICIST Work Phone: [facility] 06-13-2022 09:45-0400 SaO2% (BldA) [Mass fraction] 97 % Mary Hardin BALANCE BRIDGE INSPECTOR.THEORETICAL PHYSICIST Work Phone: [facility] 06-13-2022 09:45-0400 Systolic blood pressure 108 mm[Hg] Mary Hardin 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 06-07-2022 22:56-0500 Body mass index (BMI) [Ratio] 48.3 kg/m2 [facility] 06-07-2022 22:56-0500 Body temperature 97.2 [degF] [facility] 06-07-2022 22:56-0500 Body weight 108.[address] [facility] 06-07-2022 22:56-0500 Diastolic blood pressure 88 mm[Hg] [facility] 06-07-2022 22:56-0500 Heart rate 101 /min [facility] 06-07-2022 22:56-0500 Respiratory rate 18 /min [facility] 06-07-2022 22:56-0500 Systolic blood pressure 131 mm[Hg] [facility] 06-05-2022 08:08-0500 Body weight 108.86 kg Evelia Tompkins MD Work Phone: [facility] 06-05-2022 08:08-0500 Diastolic blood pressure 78 mm[Hg] Evelia Tompkins MD Work Phone: [facility] 06-05-2022 08:08-0500 Heart rate 81 /min Evelia Tompkins MD Work Phone: [facility] 06-05-2022 08:08-0500 Respiratory rate 15 /min Evelia Tompkins MD Work Phone: [facility] 06-05-2022 08:08-0500 SaO2% (BldA) [Mass fraction] 99 % Evelia Tompkins MD Work Phone: [facility] 06-05-2022 08:08-0500 Systolic blood pressure 108 mm[Hg] Evelia Tompkins MD Work Phone: [facility] 06-02-2022 14:52-0500 Diastolic blood pressure 66 mm[Hg] Nilesh Garduno DO Work Phone: [facility] 06-02-2022 14:52-0500 Systolic blood pressure 119 mm[Hg] Nilesh Garduno DO Work Phone: [facility] 06-02-2022 14:49-0500 Body height 149.9 cm Nilesh Garduno DO Work Phone: [facility] 06-02-2022 14:49-0500 Body temperature 98.4 [degF] Nilesh Garduno DO Work Phone: [facility] 06-02-2022 14:49-0500 Body weight 107.5 kg Nilesh Garduno DO Work Phone: [facility] 06-02-2022 14:49-0500 Heart rate 83 /min Nilesh Garduno DO Work Phone: [facility] 06-02-2022 14:49-0500 SaO2% (BldA) [Mass fraction] 99 % Nilesh Garduno DO Work Phone: [facility] 05-23-2022 12:56-0500 Body height 149.9 cm Lucy Van MD Work Phone: [facility] 05-23-2022 12:56-0500 Body weight 109.54 kg Lucy Van MD Work Phone: [facility] 05-23-2022 12:56-0500 Diastolic blood pressure 59 mm[Hg] Lucy Van MD Work Phone: [facility] 05-23-2022 12:56-0500 Heart rate 81 /min Lucy Van MD Work Phone: [facility] 05-23-2022 12:56-0500 Systolic blood pressure 119 mm[Hg] Lucy Van MD Work Phone: [facility] 05-21-2022 10:43-0500 Body height 149.9 cm Rene Doherty MD Work Phone: [facility] 05-21-2022 10:43-0500 Body weight 107.96 kg Rene Doherty MD Work Phone: [facility] 05-21-2022 10:43-0500 Diastolic blood pressure 65 mm[Hg] Rene Doherty MD Work Phone: [facility] 05-21-2022 10:43-0500 Heart rate 83 /min Rene Doherty MD Work Phone: [facility] 05-21-2022 10:43-0500 SaO2% (BldA) [Mass fraction] 97 % Rene Doherty MD Work Phone: [facility] 05-21-2022 10:43-0500 Systolic blood pressure 95 mm[Hg] Rene Doherty MD Work Phone: [facility] 05-07-2022 14:19-0500 Body height 149.9 cm Rene Doherty MD Work Phone: [facility] 05-07-2022 14:19-0500 Body temperature 98.71 [degF] Rene Doherty MD Work Phone: [facility] 05-07-2022 14:19-0500 Body weight 107.96 kg Rene Doherty MD Work Phone: [facility] 05-07-2022 14:19-0500 Diastolic blood pressure 78 mm[Hg] Reen Doherty MD Work Phone: [facility] 05-07-2022 14:19-0500 Heart rate 99 /min Rene Doherty MD Work Phone: [facility] 05-07-2022 14:19-0500 SaO2% (BldA) [Mass fraction] 99 % Rene Doherty MD Work Phone: [facility] 05-07-2022 14:19-0500 Systolic blood pressure 110 mm[Hg] Rene Doherty MD Work Phone: [facility] 05-05-2022 11:32-0500 Body weight 107.96 kg Rene Doherty MD Work Phone: [facility] 05-05-2022 11:32-0500 Diastolic blood pressure 76 mm[Hg] Rene Doherty MD Work Phone: [facility] 05-05-2022 11:32-0500 Heart rate 99 /min Rene Doherty MD Work Phone: [facility] 05-05-2022 11:32-0500 SaO2% (BldA) [Mass fraction] 98 % Rene Doherty MD Work Phone: [facility] 05-05-2022 11:32-0500 Systolic blood pressure 122 mm[Hg] Rene Doherty MD Work Phone: [facility] 03-28-2022 10:08-0500 Body temperature 97.81 [degF] NA Womack PA-C Work Phone: [facility] 03-28-2022 10:08-0500 Body weight 110.22 kg NA Womack PA-C Work Phone: [facility] 03-28-2022 10:08-0500 Diastolic blood pressure 60 mm[Hg] NA Womack PA-C Work Phone: [facility] 03-28-2022 10:08-0500 Heart rate 80 /min NA Womack PA-C Work Phone: [facility] 03-28-2022 10:08-0500 Respiratory rate 20 /min NA Womack PA-C Work Phone: [facility] 03-28-2022 10:08-0500 Systolic blood pressure 120 mm[Hg] NA Womack PA-C Work Phone: [facility] 02-24-2022 10:57-0500 Body height 149.9 cm Anju Blake APRN.THEORETICAL PHYSICIST Work Phone: [facility] 02-24-2022 10:57-0500 Body weight 108.86 kg Anju Blake APRN.THEORETICAL PHYSICIST Work Phone: [facility] 02-24-2022 10:57-0500 Diastolic blood pressure 66 mm[Hg] Anju Blake APRN.THEORETICAL PHYSICIST Work Phone: [facility] 02-24-2022 10:57-0500 Heart rate 92 /min Anju Blake APRN.THEORETICAL PHYSICIST Work Phone: [facility] 02-24-2022 10:57-0500 SaO2% (BldA) [Mass fraction] 97 % Anju Blake BALANCE BRIDGE INSPECTOR.THEORETICAL PHYSICIST Work Phone: [facility] 02-24-2022 10:57-0500 Systolic blood pressure 104 mm[Hg] Anju Blake BALANCE BRIDGE INSPECTOR.THEORETICAL PHYSICIST Work Phone: [facility] 12-17-2021 13:58-0400 Body height 149.9 cm Rene Doherty MD Work Phone: [facility] 12-17-2021 13:58-0400 Body weight 104.78 kg Rene Doherty MD Work Phone: [facility] 12-17-2021 13:58-0400 Diastolic blood pressure 76 mm[Hg] Rene Doherty MD Work Phone: [facility] 12-17-2021 13:58-0400 Heart rate 89 /min Rene Doherty MD Work Phone: [facility] 12-17-2021 13:58-0400 SaO2% (BldA) [Mass fraction] 98 % Rene Doherty MD Work Phone: [facility] 12-17-2021 13:58-0400 Systolic blood pressure 110 mm[Hg] Rene Doherty MD Work Phone: [facility] 12-06-2021 15:46-0400 Body height 149.[address] [facility] Work Phone: 12-06-2021 15:46-0400 Body mass index (BMI) [Ratio] 47 kg/m2 [facility] Work Phone: 12-06-2021 15:46-0400 Body temperature 96 [degF] [facility] Work Phone: 12-06-2021 15:46-0400 Body weight 105.[address] [facility] Work Phone: 12-06-2021 15:46-0400 Diastolic blood pressure 90 mm[Hg] [facility] Work Phone: 12-06-2021 15:46-0400 Heart rate 130 /min [facility] Work Phone: 12-06-2021 15:46-0400 Respiratory rate 18 /min [facility] Work Phone: 12-06-2021 15:46-0400 SaO2% (BldA) [Mass fraction] 97 % [facility] Work Phone: 12-06-2021 15:46-0400 Systolic blood pressure 150 mm[Hg] [facility] Work Phone: 12-04-2021 22:38-0400 Diastolic blood pressure 76 mm[Hg] [facility] Work Phone: 12-04-2021 22:38-0400 Heart rate 67 /min [facility] Work Phone: 12-04-2021 22:38-0400 Respiratory rate 18 /min [facility] Work Phone: 12-04-2021 22:38-0400 SaO2% (BldA) [Mass fraction] 99 % [facility] Work Phone: 12-04-2021 22:38-0400 Systolic blood pressure 108 mm[Hg] [facility] Work Phone: 12-04-2021 18:12-0400 Body height 149.[address] [facility] Work Phone: 12-04-2021 18:12-0400 Body mass index (BMI) [Ratio] 47.1 kg/m2 [facility] Work Phone: 12-04-2021 18:12-0400 Body temperature 97.7 [degF] [facility] Work Phone: 12-04-2021 18:12-0400 Body weight 105.[address] [facility] Work Phone: 12-04-2021 13:51-0400 Body height 149.9 cm Rene Doherty MD Work Phone: [facility] 12-04-2021 13:51-0400 Body weight 105.87 kg Rene Doherty MD Work Phone: [facility] 12-04-2021 13:51-0400 Diastolic blood pressure 72 mm[Hg] Rene Doherty MD Work Phone: [facility] 12-04-2021 13:51-0400 Heart rate 111 /min Rene Doherty MD Work Phone: [facility] 12-04-2021 13:51-0400 SaO2% (BldA) [Mass fraction] 98 % Rene Doherty MD Work Phone: [facility] 12-04-2021 13:51-0400 Systolic blood pressure 110 mm[Hg] Rene Doherty MD Work Phone: [facility] 11-25-2021 10:27-0400 Body height 149.[address] [facility] Work Phone: 11-25-2021 10:27-0400 Body mass index (BMI) [Ratio] 48.4 kg/m2 [facility] Work Phone: 11-25-2021 10:27-0400 Body temperature 97.6 [degF] [facility] Work Phone: 11-25-2021 10:27-0400 Body weight 108.[address] [facility] Work Phone: 11-25-2021 10:27-0400 Diastolic blood pressure 85 mm[Hg] [facility] Work Phone: 11-25-2021 10:27-0400 Heart rate 95 /min [facility] Work Phone: 11-25-2021 10:27-0400 Respiratory rate 18 /min [facility] Work Phone: 11-25-2021 10:27-0400 SaO2% (BldA) [Mass fraction] 96 % [facility] Work Phone: 11-25-2021 10:27-0400 Systolic blood pressure 118 mm[Hg] [facility] Work Phone: 11-24-2021 19:34-0400 Body height 149.[address] [facility] Work Phone: 11-24-2021 19:34-0400 Body mass index (BMI) [Ratio] 45 kg/m2 [facility] Work Phone: 11-24-2021 19:34-0400 Body temperature 97.2 [degF] [facility] Work Phone: 11-24-2021 19:34-0400 Body weight 101.[address] [facility] Work Phone: 11-24-2021 19:34-0400 Diastolic blood pressure 76 mm[Hg] [facility] Work Phone: 11-24-2021 19:34-0400 Heart rate 109 /min [facility] Work Phone: 11-24-2021 19:34-0400 Respiratory rate 16 /min [facility] Work Phone: 11-24-2021 19:34-0400 SaO2% (BldA) [Mass fraction] 96 % [facility] Work Phone: 11-24-2021 19:34-0400 Systolic blood pressure 123 mm[Hg] [facility] Work Phone: 11-18-2021 14:32-0400 Body height 149.[address] [facility] 11-18-2021 14:32-0400 Body weight 101.[address] [facility] 11-16-2021 12:00-0400 Body temperature 98.49 [degF] Leonarda Praisler-Wood BALANCE BRIDGE INSPECTOR.THEORETICAL PHYSICIST Work Phone: [facility] 11-16-2021 12:00-0400 Body weight 102.06 kg Leonarda Praisler-Wood BALANCE BRIDGE INSPECTOR.THEORETICAL PHYSICIST Work Phone: [facility] 11-16-2021 12:00-0400 Diastolic blood pressure 80 mm[Hg] Leonarda Praisler-Wood BALANCE BRIDGE INSPECTOR.THEORETICAL PHYSICIST Work Phone: [facility] 11-16-2021 12:00-0400 Heart rate 104 /min Leonarda Praisler-Wood BALANCE BRIDGE INSPECTOR.THEORETICAL PHYSICIST Work Phone: [facility] 11-16-2021 12:00-0400 Respiratory rate 18 /min Leonarda Praisler-Wood BALANCE BRIDGE INSPECTOR.THEORETICAL PHYSICIST Work Phone: [facility] 11-16-2021 12:00-0400 SaO2% (BldA) [Mass fraction] 97 % Leonarda Praisler-Wood BALANCE BRIDGE INSPECTOR.THEORETICAL PHYSICIST Work Phone: [facility] 11-16-2021 12:00-0400 Systolic blood pressure 124 mm[Hg] Leonarda Praisler-Wood BALANCE BRIDGE INSPECTOR.THEORETICAL PHYSICIST Work Phone: [facility] 10-28-2021 14:01-0400 Body weight 101.15 kg Mary Haagen BALANCE BRIDGE INSPECTOR.THEORETICAL PHYSICIST Work Phone: [facility] 10-28-2021 14:01-0400 Diastolic blood pressure 76 mm[Hg] Mary Haagen BALANCE BRIDGE INSPECTOR.THEORETICAL PHYSICIST Work Phone: [facility] 10-28-2021 14:01-0400 Heart rate 90 /min Mary Haagen BALANCE BRIDGE INSPECTOR.THEORETICAL PHYSICIST Work Phone: [facility] 10-28-2021 14:01-0400 Respiratory rate 18 /min Mary Haagen BALANCE BRIDGE INSPECTOR.THEORETICAL PHYSICIST Work Phone: [facility] 10-28-2021 14:01-0400 SaO2% (BldA) [Mass fraction] 98 % Mary Haagen BALANCE BRIDGE INSPECTOR.THEORETICAL PHYSICIST Work Phone: [facility] 10-28-2021 14:01-0400 Systolic blood pressure 108 mm[Hg] Mary Haagen BALANCE BRIDGE INSPECTOR.THEORETICAL PHYSICIST Work Phone: [facility] 10-23-2021 16:17-0400 Body temperature 99 [degF] Xander Pendlebury BALANCE BRIDGE INSPECTOR.THEORETICAL PHYSICIST Work Phone: [facility] 10-23-2021 16:17-0400 Body weight 101.61 kg Xandermeet Pachecolelea BALANCE BRIDGE INSPECTOR.THEORETICAL PHYSICIST Work Phone: [facility] 10-23-2021 16:17-0400 Diastolic blood pressure 68 mm[Hg] Xander Pendlebury BALANCE BRIDGE INSPECTOR.THEORETICAL PHYSICIST Work Phone: [facility] 10-23-2021 16:17-0400 Heart rate 114 /min Xander Pendlebury BALANCE BRIDGE INSPECTOR.THEORETICAL PHYSICIST Work Phone: [facility] 10-23-2021 16:17-0400 Respiratory rate 18 /min Xander Pendlebury BALANCE BRIDGE INSPECTOR.THEORETICAL PHYSICIST Work Phone: [facility] 10-23-2021 16:17-0400 SaO2% (BldA) [Mass fraction] 97 % Xander Pendlelea BALANCE BRIDGE INSPECTOR.THEORETICAL PHYSICIST Work Phone: [facility] 10-23-2021 16:17-0400 Systolic blood pressure 110 mm[Hg] Xander Pendlebury BALANCE BRIDGE INSPECTOR.THEORETICAL PHYSICIST Work Phone: [facility] 09-02-2021 14:32-0400 Body height 149.[address] [facility] 09-02-2021 14:32-0400 Body weight 102.[address] [facility] 08-30-2021 09:46-0400 Diastolic blood pressure 74 mm[Hg] Mary Haagen BALANCE BRIDGE INSPECTOR.THEORETICAL PHYSICIST Work Phone: [facility] 08-30-2021 09:46-0400 Heart rate 104 /min Mary Haagen BALANCE BRIDGE INSPECTOR.THEORETICAL PHYSICIST Work Phone: [facility] 08-30-2021 09:46-0400 Respiratory rate 18 /min Mary Haagen BALANCE BRIDGE INSPECTOR.THEORETICAL PHYSICIST Work Phone: [facility] 08-30-2021 09:46-0400 SaO2% (BldA) [Mass fraction] 98 % Mary Hardin BALANCE BRIDGE INSPECTOR.THEORETICAL PHYSICIST Work Phone: [facility] 08-30-2021 09:46-0400 Systolic blood pressure 94 mm[Hg] Mary Hardin BALANCE BRIDGE INSPECTOR.THEORETICAL PHYSICIST Work Phone: [facility] 07-12-2021 14:41-0400 Body weight 102.06 kg Power Escamilla BALANCE BRIDGE INSPECTOR.THEORETICAL PHYSICIST, DNP Work Phone: [facility] 07-12-2021 14:41-0400 Diastolic blood pressure 74 mm[Hg] Power Escamilla BALANCE BRIDGE INSPECTOR.THEORETICAL PHYSICIST, DNP Work Phone: [facility] 07-12-2021 14:41-0400 Heart rate 109 /min Power Escamilla BALANCE BRIDGE INSPECTOR.THEORETICAL PHYSICIST, DNP Work Phone: [facility] 07-12-2021 14:41-0400 Respiratory rate 16 /min Power Escamilla BALANCE BRIDGE INSPECTOR.THEORETICAL PHYSICIST, DNP Work Phone: [facility] 07-12-2021 14:41-0400 SaO2% (BldA) [Mass fraction] 100 % Power Escamilla BALANCE BRIDGE INSPECTOR.THEORETICAL PHYSICIST, DNP Work Phone: [facility] 07-12-2021 14:41-0400 Systolic blood pressure 110 mm[Hg] Power Escamilla BALANCE BRIDGE INSPECTOR.THEORETICAL PHYSICIST, DNP Work Phone: [facility] 06-22-2021 10:18-0400 Body temperature 98.01 [degF] Dank Feng BALANCE BRIDGE INSPECTOR.THEORETICAL PHYSICIST Work Phone: [facility] 06-22-2021 10:18-0400 Body weight 99.97 kg Dank Feng APRN.THEORETICAL PHYSICIST Work Phone: [facility] 06-22-2021 10:18-0400 Diastolic blood pressure 70 mm[Hg] Dank Feng BALANCE BRIDGE INSPECTOR.THEORETICAL PHYSICIST Work Phone: [facility] 06-22-2021 10:18-0400 Heart rate 100 /min Dank Feng BALANCE BRIDGE INSPECTOR.THEORETICAL PHYSICIST Work Phone: [facility] 06-22-2021 10:18-0400 Respiratory rate 22 /min Dank Jung BALANCE BRIDGE INSPECTOR.THEORETICAL PHYSICIST Work Phone: [facility] 06-22-2021 10:18-0400 SaO2% (BldA) [Mass fraction] 98 % Dank Jung BALANCE BRIDGE INSPECTOR.THEORETICAL PHYSICIST Work Phone: [facility] 06-22-2021 10:18-0400 Systolic blood pressure 108 mm[Hg] Dank Feng BALANCE BRIDGE INSPECTOR.THEORETICAL PHYSICIST Work Phone: [facility] 05-06-2021 11:20-0500 Body weight 100.25 kg Esvin Correa MD Work Phone: [facility] 05-06-2021 11:20-0500 Diastolic blood pressure 79 mm[Hg] Esvin Correa MD Work Phone: [facility] 05-06-2021 11:20-0500 Heart rate 109 /min Esvin Correa MD Work Phone: [facility] 05-06-2021 11:20-0500 Systolic blood pressure 117 mm[Hg] Esvin Correa MD Work Phone: [facility] Encounters Encounter Date Encounter Type Care Provider Facility Start: 09-29-2024 ambulatory Espinoza Hernadez Facility :[facility] Start: 09-16-2024 End: 09-16-[address] Espinoza Hernadez MD [place] [facility] Work Phone: Start: 09-16-2024 End: 09-16-[address] Rene Doherty MD Work Phone: [facility] Work Phone: Start: 09-11-2024 End: 09-11-2024 Emergency department patient visit CARLO JAIMES [facility] Start: 08-23-2024 End: 08-23-2024 Patient encounter procedure Helene Miranda BALANCE BRIDGE INSPECTOR.THEORETICAL PHYSICIST Work Phone: [facility] Comment on above: Acute otitis media, left (Primary Dx) Start: 08-23-2024 End: 08-23-2024 ambulatory HELENE MIRANDA Facility:[facility] Start: 07-25-2024 End: 07-25-2024 Patient encounter procedure Ale Sousa CNM -Laboratory Specimen Work Phone: Start: 07-25-2024 Encounter for gynecological examination (general) (routine) without abnormal findings Ale Sousa [facility] Start: 07-25-2024 End: 07-25-2024 Patient encounter procedure Ale Sousa CNM -[facility] @ Start: 07-25-2024 End: 07-25-2024 Patient encounter status Ale Sousa CNM [facility] Start: 07-25-2024 End: 07-25-2024 ambulatory No Primary Care Physician Facility:[facility] Start: 07-25-2024 End: 07-25-2024 ambulatory No Primary Care Physician Facility:[facility] Start: 07-11-2024 End: 07-11-2024 E-mail encounter from caregiver Raeann Interiano MD Work Phone: Cardiology Start: 07-11-2024 End: 07-11-2024 Follow-up encounter Raeann Interiano MD Work Phone: Cardiology Comment on above: One Year Follow Up A ppointment Start: 07-09-2024 End: 07-11-2024 Refill Raeann Interiano MD Work Phone: Cardiology Comment on above: Refill Request Start: 06-13-2024 End: 06-13-[address] Rene Doherty MD Work Phone: [facility] Work Phone: Start: 06-13-2024 End: 06-13-2024 Patient encounter procedure Juan Jose GORDON -Laboratory Work Phone: Start: 06-13-2024 End: 06-13-2024 Patient encounter procedure Juan Jose GORDON -[facility] Work Phone: Start: 06-13-2024 End: 06-13-2024 ambulatory No Primary Care Physician Facility:[facility] Start: 06-13-2024 End: 06-13-2024 ambulatory No Primary Care Physician Facility:[facility] Start: 05-27-2024 End: 05-30-2024 Refill Rene Doherty MD Work Phone: [facility] Comment on above: Refill Request Start: 12-28-2023 End: 12-28-2023 Refill Rene Doherty MD Work Phone: [facility] Comment on above: Refill Request Start: 11-04-2023 ambulatory Ale Everett ROLL OVER LOADER Facili ty:[facility] Start: 11-04-2023 ambulatory Edwin Madrigalori Facility:[facility] Start: 11-04-2023 End: 11-04-2023 ambulatory [facility] Facility:[facility] Start: 10-06-2023 End: 10-06-2023 ambulatory [facility] Facility:[facility] Start: 09-14-2023 End: 09-14-2023 ambulatory RENE DOHERTY Facility:[facility] Start: 08-19-2023 ambulatory Rene Doherty MD Work Phone: [facility] Comment on above: Question on my vitam ins. Start: 08-18-2023 Refill Rene Doherty MD Work Phone: [facility] Comment on above: Refill Request Start: 07-13-2023 Refill Raeann Interiano MD Work Phone: Cardiology Comment on above: Refill Request Start: 07-12-2023 Refill Chasity Joyce on PA-C Work Phone: [facility] Comment on above: Refill Request Start: 05-15-2023 Refill Rene Doherty MD Work Phone: [facility] Comment on above: Refill Request Start: 03-30-2023 End: 03-30-2023 Emergency department patient visit [facility] Work Phone: Start: 01-12-2023 End: 01-12-2023 Patient encounter procedure Raeann Interiano MD Work Phone: Cardiology Comment on above: Tachycardia, unspeci fied Start: 12-31-2022 Refill Rene Doherty MD Work Phone: [facility] Comment on above: Refill Request Start: 11-03-2022 Telephone encounter Rene Doherty MD Work Phone: [facility] Comment on above: Results Start: 10-13-2022 Refill Rene Doherty MD Work Phone: [facility] Comment on above: Refill Request Start: 10-07-2022 Telephone encounter Rene Doherty MD Work Phone: [facility] Comment on above: Results Start: 10-07-2022 End: 10-07-2022 Subsequent hospital visit by physician [facility] Work Phone: Radiology Comment on above: Lymphadenopathy, axi llary [R59.0] Start: 10-01-2022 End: 10-01-[address] Rene Doherty Work Phone: [facility] Work Phone: Start: 10-01-2022 End: 10-01-[address] Rene Doherty Work Phone: [facility] application support manager Off Start: 09-12-2022 End: 09-12-2022 Patient encounter procedure Cassy López PA-C Work Phone: General Surgery Comment on above: GERD without esophag itis (Primary Dx) Start: 09-11-2022 End: 09-11-2022 ambulatory Kristin Teixeira MD Work Phone: Endocrinology Comment on above: Obesity, Class III, BMI 40-49.9 (morbid obesity) (HCC) (Primary Dx); Weight gain; Hypothyroidism, unspecified type; Malaise and fatigue; Pain in joint, multiple sites; Enlarged lymph node; Encounter for screening for diabetes mellitus Start: 09-11-2022 End: 09-11-2022 Telemedicine consultation with patient Kristin Teixeira MD Work Phone: [facility] Start: 09-11-2022 Telephone encounter Kristin lux MD Work Phone: Endocrinology Comment on above: Salivary cortisolkit s\ Start: 09-05-2022 End: 09-05-2022 Emergency department patient visit Dr. Rene Doherty Work Phone: [facility] Work Phone: Start: 09-05-2022 Telephone encounter Mary Noble MD Work Phone: General Surgery Comment on above: Patient Question (Sh ocking feeling in body) Start: 09-04-2022 ambulatory PAWAN MALLOY Facility:[facility] Start: 09-03-2022 Telephone encounter Rene Doherty MD Work Phone: [facility] Comment on above: Release Of Medical R ecords Start: 09-03-2022 End: 09-03-[address] Rene Doherty Work Phone: [facility] [place] application support manager Off Start: 08-28-2022 ambulatory Jesus Osman RN L D SURGERY Start: 07-29-2022 End: 07-29-[address] Rene Doherty Work Phone: [facility] Work Phone: Start: 07-21-2022 End: 07-21-2022 Patient encounter procedure Rene Doherty MD Work Phone: [facility] Comment on above: URI, acute (Primary Dx); Dermatitis; Lymphadenopathy, axillary; GERD without esophagitis; Arthralgia of both hands; Elevated sed rate; Swelling of finger Start: 07-21-2022 End: 07-21-2022 ambulatory Anushka Tavarez PT [facility] Comment on above: Secondary lymphedema (Primary Dx); Swelling of both hands; Leg swelling Start: 07-08-2022 ambulatory No Pcp Justin Rose Start: 06-24-2022 End: 06-24-2022 Patient encounter procedure Mary Carlisle MD Work Phone: General Surgery Comment on above: Esophageal pain; GERD without esophagitis; Lymphadenopathy, axillary Start: 06-24-2022 Telephone encounter Rene Doherty MD Work Phone: [facility] Comment on above: Results Start: 06-24-2022 End: 06-24-2022 [facility] Work Phone: Radiology Comment on above: Lymphadenopathy, axi llary [R59.0] Start: 06-23-2022 End: 06-23-2022 Patient encounter procedure Rene Doherty MD Work Phone: [facility] Comment on above: GERD without esophag itis (Primary Dx); Lymphadenopathy, axillary; Elevated sed rate; CRP elevated; Pain in axilla, unspecified laterality; Dermatitis Start: 06-17-2022 End: 06-17-2022 Subsequent hospital visit by physician Us Maurer A21 4 Work Phone: Radiology Comment on above: Finger swelling [M79 .89] Start: 06-16-2022 Telephone encounter Rene Doherty MD Work Phone: [facility] Comment on above: Results Patient Question Start: 06-16-2022 End: 06-16-2022 ambulatory Pulm Lab [facility] Work Phone: PULM LAB [facility] Comment on above: Spirometry Start: 06-16-2022 End: 06-16-2022 Patient encounter procedure Pulm Lab [facility] Work Phone: [facility]EDS AT THE [facility] Comment on above: Wheezing (Primary Dx ); Abnormal finding on imaging; Epigastric pain Start: 06-13-2022 End: 06-13-2022 Office outpatient visit 25 minutes Mary Hardin APRN.CNP Work Phone: [facility] Comment on above: Hypothyroidism, acqu ired (Primary Dx); Mild episode of recurrent major depressive disorder (HCC); Gastroesophageal reflux disease, unspecified whether esophagitis present Start: 06-10-2022 Telephone encounter Braydon acuña [facility] Work Phone: [facility] Comment on above: Results (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 - NEGATIVE) Start: 06-09-2022 End: 06-09-2022 Subsequent hospital visit by physician [facility] (I-Stat) Work Phone: Cat Scan Comment on above: Abnormal finding on imaging [R93.89] Start: 06-07-2022 End: 06-07-2022 Emergency department patient visit [facility] Start: 06-05-2022 End: 06-05-2022 Patient encounter procedure Evelia Tompkins MD Work Phone: Pulmonary Medicine Comment on above: Abnormal finding on imaging (Primary Dx); Ground glass opacity present on imaging of lung; Wheezing; Obesity, Class III, BMI 40-49.9 (morbid obesity) (HCC) Start: 06-02-2022 End: 06-02-2022 Patient encounter procedure Nilesh Garduno DO Work Phone: Vascular Medicine Comment on above: Secondary lymphedema (Primary Dx); Finger swelling; Swelling of both hands; Pain in joint, multiple sites; Anasarca; Leg swelling; Morbid obesity with BMI of 40.0-44.9, adult (HCC) Start: 05-27-2022 Telephone encounter Elise Nichole ( Coord) Radiology Comment on above: Appointment Start: 05-23-2022 End: 05-23-2022 Subsequent hospital visit by physician Rodrigo Main A[facility] Radiology Comment on above: Finger swelling [M79 .89] Start: 05-23-2022 End: 05-23-2022 Patient encounter procedure Lucy Van MD Work Phone: Rheumatology Comment on above: Pain in joint, multi ple sites (Primary Dx); Finger swelling; Swelling of both hands; Elevated sed rate; Anasarca; Abnormal CXR; Tachycardia; Shortness of breath; Malaise and fatigue; Acrocyanosis ([facility]) Start: 05-21-2022 Telephone encounter Rene Doherty MD Work Phone: [facility] Comment on above: Results Start: 05-21-2022 End: 05-21-2022 Subsequent hospital visit by physician Xr [facility] Work Phone: Radiology Comment on above: Abnormal x-ray [R93. 89] Start: 05-21-2022 End: 05-21-2022 Patient encounter procedure Rene Doherty MD Work Phone: [facility] [place] Comment on above: Tachycardia, unspeci fied (Primary Dx); Swelling of both hands; Elevated sed rate; URI, acute Start: 05-20-2022 Telephone encounter Braydon Gomez arianne [facility] Work Phone: [facility] Comment on above: Orders (Genetic Test ing - Familial Variant Testing (MYBPC3)) Start: 05-19-2022 End: 05-19-2022 Nursing evaluation of patient and report Nurse Card Admin [facility] Work Phone: Cardiology Comment on above: Screening for ischem ic heart disease (Primary Dx) Start: 05-19-2022 End: 05-19-2022 Subsequent hospital visit by physician Injection Nm [facility] Work Phone: Nuclear Medicine Comment on above: Tachycardia [R00.0] Start: 05-13-2022 ambulatory Nurse Card Adm in [facility] Work Phone: Cardiology Comment on above: Stress Test Instruct ions Start: 05-13-2022 E-mail encounter maribel barillas caregiver Nurse Card Admin [facility] Work Phone: [facility] BEDS AT [facility] Start: 05-07-2022 End: 05-07-2022 Patient encounter procedure Rene Doherty MD Work Phone: [facility] [place] Comment on above: URI, acute (Primary Dx); Acute otitis media, right Start: 05-06-2022 ambulatory Rene Doherty MD Work Phone: [facility] [place] Comment on above: Scheduled for tomorr ow 05/07/22 @ 2:20 Start: 05-06-2022 Telephone encounter Rene Doherty MD Work Phone: [facility] [place] Comment on above: Results Start: 05-05-2022 Telephone encounter Rene Doherty MD Work Phone: [facility] [place] Comment on above: Results Start: 05-05-2022 End: 05-05-2022 Subsequent hospital visit by physician Xr [facility] [place] Work Phone: Radiology Comment on above: Tachycardia, unspeci fied [R00.0] Start: 05-05-2022 End: 05-05-2022 Patient encounter procedure Rene Doherty MD Work Phone: [facility] Comment on above: Tachycardia, unspeci fied (Primary Dx); Hypothyroidism, acquired; Edema, unspecified type; SOB (shortness of breath); Elevated sed rate; Near syncope; Joint swelling Start: 03-28-2022 End: 03-28-2022 Patient encounter procedure Chasity Womack PA-C Work Phone: [facility] Comment on above: Hypothyroidism, acqu ired (Primary Dx); Obesity, Class III, BMI 40-49.9 (morbid obesity) (HCC); Mild episode of recurrent major depressive disorder (HCC); Neurodermatitis; Prurigo nodularis; Tachycardia, unspecified; Somatic dysfunction of rib Start: 03-03-2022 ambulatory Anju mak APRN.THEORETICAL PHYSICIST Work Phone: Cardiology Comment on above: Genetic testing. Start: 02-24-2022 End: 02-24-2022 Patient encounter procedure Anju Blake APRN.THEORETICAL PHYSICIST Work Phone: Cardiology Comment on above: Tachycardia (Primary Dx); Encounter for screening for cardiovascular disorders; SAHU (dyspnea on exertion); Chest tightness Start: 01-23-2022 End: 01-23-2022 ambulatory Darvin Valencia PT [facility] Comment on above: Chest wall pain (Fouzia gerardo Dx) Start: 01-14-2022 Telephone encounter Rene Doherty MD Work Phone: [facility] Comment on above: Results Start: 12-24-2021 End: 12-24-2021 ambulatory Chloé Narvaez ASSISTANT DIRECTOR OF RESIDENCE LIFE Work Phone: [facility] Comment on above: Chest wall pain (Fouzia gerardo Dx) Start: 12-19-2021 End: 12-19-2021 ambulatory Darvin Valencia PT [facility] Comment on above: Chest wall pain (Fouzia gerardo Dx) Start: 12-17-2021 End: 12-17-2021 Patient encounter procedure Rene Doherty MD Work Phone: [facility] Comment on above: Tachycardia (Primary Dx); Elevated sed rate; Hypothyroidism, acquired; Chest wall pain; Palpitations Start: 12-16-2021 Telephone encounter Rene Doherty MD Work Phone: [facility] Comment on above: Results Start: 12-12-2021 Refill Mary Hardin APRN.CNP Work Phone: [facility] Comment on above: Refill Request Start: 12-06-2021 End: 12-06-2021 [facility] Start: 12-05-2021 Telephone encounter Rene Doherty MD Work Phone: [facility] Comment on above: Results Start: 12-04-2021 End: 12-04-2021 Emergency department patient visit [facility] Start: 12-04-2021 End: 12-04-2021 Patient encounter procedure [facility]Laboratory, Specimen Start: 12-04-2021 End: 12-04-2021 ambulatory Rene Doherty MD Work Phone: [facility] Comment on above: Prescription. Start: 12-04-2021 Telephone encounter Rene Doherty MD Work Phone: [facility] Comment on above: Critical Lab Value-D Dimer Start: 12-04-2021 End: 12-04-2021 Patient encounter procedure Rene Doherty MD Work Phone: [facility] Comment on above: Chest pain, unspecif ied type (Primary Dx) Start: 11-25-2021 End: 11-25-2021 Emergency department patient visit [facility] Start: 11-24-2021 End: 11-24-2021 Emergency department patient visit [facility] Start: 11-18-2021 End: 11-18-[address] Nutrition Therapy Comment on above: Reassessment; Patien t Education Start: 11-16-2021 End: 11-16-2021 Patient encounter procedure Leonarda Blakely APRN.THEORETICAL PHYSICIST Work Phone: [facility] Comment on above: Rash (Primary Dx) Start: 10-30-2021 Telephone encounter Mary peraza APRN.THEORETICAL PHYSICIST Work Phone: [facility] Comment on above: Results Opened In Error Start: 10-28-2021 End: 10-28-2021 Office outpatient visit 15 minutes Mary Hardin APRN.THEORETICAL PHYSICIST Work Phone: [facility] Comment on above: Hypothyroidism, acqu ired (Primary Dx); Iron deficiency anemia, unspecified iron deficiency anemia type; Tachycardia Start: 10-23-2021 End: 10-23-2021 Patient encounter procedure Xander Mendoza APRN.THEORETICAL PHYSICIST Work Phone: [facility] Comment on above: Rash (Primary Dx) Start: 09-16-2021 Telephone encounter Mary peraza APRN.THEORETICAL PHYSICIST Work Phone: [facility] Comment on above: Results Start: 09-02-2021 End: 09-02-2021 Patient encounter procedure Mary Hardin APRN.THEORETICAL PHYSICIST Work Phone: [facility] Comment on above: Tachycardia (Primary Dx) Start: 09-02-2021 End: 09-02-[address] Nutrition Therapy Comment on above: Patient Education; A ssessment Start: 08-30-2021 End: 08-30-2021 Office outpatient visit 25 minutes Mary Hadrin APRN.THEORETICAL PHYSICIST Work Phone: [facility] Comment on above: Tachycardia (Primary Dx) Start: 07-12-2021 End: 07-12-2021 Patient encounter procedure Power Escamilla APRN.THEORETICAL PHYSICIST, DNP Work Phone: [facility] Comment on above: Localized swelling o f both lower legs (Primary Dx); Pes cavus; Increased heart rate; Obesity, Class III, BMI 40-49.9 (morbid obesity) (HCC); Hypothyroidism, acquired Start: 07-11-2021 End: 07-11-2021 Patient encounter procedure [facility], Specimen Start: 06-22-2021 End: 06-22-2021 Patient encounter procedure Dank Feng APRN.THEORETICAL PHYSICIST Work Phone: [facility] Comment on above: URI, acute (Primary Dx); Sore throat Start: 05-08-2021 ambulatory ESVIN CORREA [facility] Ambulatory Start: 05-06-2021 End: 05-06-2021 ambulatory POWER ESCAMILLA [facility] Ambulatory Start: 05-06-2021 End: 05-06-2021 Office outpatient new 45 minutes Power Escamilla THEORETICAL PHYSICIST Work Phone: [facility] Comment on above: Elevated sed rate (P rimary Dx); CRP elevated; Leukocytosis, unspecified type; Class 3 severe obesity due to excess calories without serious comorbidity with body mass index (BMI) of 40.0 to 44.9 in adult (HCC) Procedures Date Procedure Procedure Detail Performing Clinician Start: 07-25-2024 Liquid based cervica l cytology screening Dr. Rene Doherty MD Work Phone: Comment on above: NEGATIVE FOR INTRAEP ITHELIAL LESION OR MALIGNANCY. This liquid based inPrep(R) pap test was screened withthe use of an image guided system. Start: 07-25-2024 Gram stain microscopy Adenike Doherty MD Work Phone: Start: 07-25-[address] Rene Doherty MD Work Phone: Start: 03-30-2023 Plain chest X-ray Start: 03-30-2023 SARS-CoV-2 & FLU Ant igen (Rapid) Start: 10-07-2022 Digital breast tomos ynthesis bilateral Rene Doherty MD Work Phone: Start: 10-07-2022 Us breast uni real t shahida with image limited Rene Doherty MD Work Phone: Start: 07-21-2022 2019 CORONAVIRUS Shadia Doherty MD Work Phone: Start: 06-24-2022 Us breast uni real t shahida with image limited Rene Doherty MD Work Phone: Start: 06-17-2022 End: 06-17-2022 US FOOT/ANKLE SYNOVIAL SCREEN LT Lucy Van MD Work Phone: Start: 06-16-2022 Nitric oxide gas determination Evelia Tompkins MD Work Phone: Start: 06-16-2022 Brncdilat rspse spmt ry pre&post-brncdilat admn Evelia Tompkins MD Work Phone: Start: 06-09-2022 Ct thorax w/o contra st material Evelia Tompkins MD Work Phone: Start: 05-23-2022 Radex ankle complete minimum 3 views Lucy Van MD Work Phone: Start: 05-21-2022 Radiologic exam ches t 2 views Rene Doherty MD Work Phone: Start: 05-19-2022 Myocardial spect mul tiple studies Anju Blake BALANCE BRIDGE INSPECTOR.THEORETICAL PHYSICIST Work Phone: Start: 05-05-2022 Radiologic exam ches t 2 views Rene Doherty MD Work Phone: Start: 12-04-2021 CT angiography of ch est with contrast Start: 12-04-2021 Plain chest X-ray Start: 12-04-2021 D-DIMER Rene Doherty MD Work Phone: Start: 11-25-2021 Plain chest X-ray Start: 06-22-2021 STREP A MOLECULAR (POC) [facility] Provider Plan of Treatment Date Care Activity Detail Author Start: 11-28-2024 Influenza vaccination Influenz a Vaccine (Season Ended) [facility] Start: 10-11-2024 PAP TESTING PAP TESTING [facility] Start: 10-11-2024 Screening for malign ant neoplasm of cervix [facility] Start: 09-16-2024 Patient referral [facility] Work Phone: Start: 01-25-2024 End: 01-25-2024 Patient encounter procedure 01/25/2024 2:40 PM EDT Office Visit Cardiology [address] [place] [address] Raeann Interiano MD [address], [address] [place], [place] [id number] 1 year follow up Cardiology Comment on above: 1 year follow up Start: 01-24-2024 Annual PCP Team Ethylbenzene Converter Operator vladimir Disease Visit Annual PCP Team Chronic Disease Visit [facility] Start: 01-24-2024 Covid-19 Vaccine (#1) Covid-19 Vacci ne (#1) [facility] Comment on above: Postponed from 04/24 (Declined at this time) Start: 01-24-2024 Covid-19 Vaccine ( season) Covid-19 Vaccine () [facility] Comment on above: Postponed from 11/28 (Declined at this time) Start: 01-24-2024 Urine microalbumin profile DTaP,Tdap,Td Vaccine (7 - Td or Tdap) [facility] Comment on above: Postponed from 07/25 (Declined at this time) Start: 11-29-2023 Covid-19 Vaccine ( season) Covid-19 Vaccine ( season) [facility] Start: 11-29-2023 Influenza vaccination C [facility] Start: 11-01-2023 ANNUAL PCP TEAM PSYCHIATRIC TECHNICIAN ASSISTANT VLADIMIR DISEASE VISIT ANNUAL PCP TEAM CHRONIC DISEASE VISIT [facility] Start: 09-27-2023 Influenza vaccination Influenza Vacc ine (#1) [facility] Comment on above: Postponed from 11/28 (Declined at this time) Start: 07-22-2023 ANNUAL PCP TEAM PSYCHIATRIC TECHNICIAN ASSISTANT VLADIMIR DISEASE VISIT ANNUAL PCP TEAM CHRONIC DISEASE VISIT [facility] Start: 06-24-2023 ANNUAL PCP TEAM PSYCHIATRIC TECHNICIAN ASSISTANT VLADIMIR DISEASE VISIT ANNUAL PCP TEAM CHRONIC DISEASE VISIT [facility] Start: 06-14-2023 ANNUAL PCP TEAM PSYCHIATRIC TECHNICIAN ASSISTANT VLADIMIR DISEASE VISIT ANNUAL PCP TEAM CHRONIC DISEASE VISIT [facility] Start: 05-21-2023 ANNUAL PCP TEAM PSYCHIATRIC TECHNICIAN ASSISTANT VLADIMIR DISEASE VISIT ANNUAL PCP TEAM CHRONIC DISEASE VISIT [facility] Start: 05-07-2023 ANNUAL PCP TEAM PSYCHIATRIC TECHNICIAN ASSISTANT VLADIMIR DISEASE VISIT ANNUAL PCP TEAM CHRONIC DISEASE VISIT [facility] Start: 05-05-2023 ANNUAL PCP TEAM PSYCHIATRIC TECHNICIAN ASSISTANT VLADIMIR DISEASE VISIT ANNUAL PCP TEAM CHRONIC DISEASE VISIT [facility] Start: 04-09-2023 End: 11-06-2023 US BREAST LTD LEFT US BREAST LTD LEFT Radiology Routine Abnormal ultrasound Expected: 04/09/2023, Expires: 11/06/2023 [facility] Work Phone: Comment on above: Expected: 04/09/2023 , Expires: 11/06/2023 Start: 03-30-2023 [facility] Start: 03-28-2023 ANNUAL PCP TEAM PSYCHIATRIC TECHNICIAN ASSISTANT VLADIMIR DISEASE VISIT ANNUAL PCP TEAM CHRONIC DISEASE VISIT [facility] Start: 01-09-2023 ANNUAL PCP TEAM PSYCHIATRIC TECHNICIAN ASSISTANT VLADIMIR DISEASE VISIT ANNUAL PCP TEAM CHRONIC DISEASE VISIT [facility] Start: 12-17-2022 ANNUAL PCP TEAM PSYCHIATRIC TECHNICIAN ASSISTANT VLADIMIR DISEASE VISIT ANNUAL PCP TEAM CHRONIC DISEASE VISIT [facility] Start: 12-04-2022 ANNUAL PCP TEAM PSYCHIATRIC TECHNICIAN ASSISTANT VLADIMIR DISEASE VISIT ANNUAL PCP TEAM CHRONIC DISEASE VISIT [facility] Start: 11-28-2022 Influenza vaccination [facility] Start: 10-28-2022 ANNUAL PCP TEAM PSYCHIATRIC TECHNICIAN ASSISTANT VLADIMIR DISEASE VISIT ANNUAL PCP TEAM CHRONIC DISEASE VISIT [facility] Start: 09-26-2022 Influenza vaccination INFLUENZA (#1) [facility] Comment on above: Postponed from 11/28 (Declined at this time) Start: 09-24-2022 End: 07-24-2023 US BREAST LTD LEFT US BREAST LTD LEFT Radiology Routine Lymphadenopathy, axillary Expected: 09/24/2022, Expires: 07/24/2023 [facility] Work Phone: Comment on above: Expected: 09/24/2022 , Expires: 07/24/2023 Start: 09-02-2022 ANNUAL PCP TEAM PSYCHIATRIC TECHNICIAN ASSISTANT VLADIMIR DISEASE VISIT ANNUAL PCP TEAM CHRONIC DISEASE VISIT [facility] Start: 08-30-2022 ANNUAL PCP TEAM PSYCHIATRIC TECHNICIAN ASSISTANT VLADIMIR DISEASE VISIT ANNUAL PCP TEAM CHRONIC DISEASE VISIT [facility] Start: 07-25-2022 End: 12-14-2022 Thyrotropin [Units/volume] in Serum or Plasma TSH BLD Lab Routine Hypothyroidism, acquired Expected: 07/25/2022, Expires: 12/14/2022 [facility] Work Phone: Comment on above: Expected: 07/25/2022 , Expires: 12/14/2022 Start: 07-25-2022 End: 12-14-2022 Thyroxine (T4) free [Mass/volume] in Serum or Plasma T4 FREE/FREE THYROX Lab Routine Hypothyroidism, acquired Expected: 07/25/2022, Expires: 12/14/2022 [facility] Work Phone: Comment on above: Expected: 07/25/2022 , Expires: 12/14/2022 Start: 07-21-2022 End: 09-20-2022 Erythrocyte sedimentation rate SED RATE WESTERGREN Lab Routine Arthralgia of both hands Elevated sed rate Swelling of finger Expected: 07/21/2022, Expires: 09/20/2022 [facility] Work Phone: Comment on above: Expected: 07/21/2022 , Expires: 09/20/2022 Start: 07-12-2022 ANNUAL PCP TEAM PSYCHIATRIC TECHNICIAN ASSISTANT VLADIMIR DISEASE VISIT ANNUAL PCP TEAM CHRONIC DISEASE VISIT [facility] Start: 06-23-2022 End: 08-23-2022 C reactive protein [Mass/volume] in Serum or Plasma [facility] Work Phone: Comment on above: Expected: 06/23/2022 , Expires: 08/23/2022 Start: 06-23-2022 End: 08-23-2022 Erythrocyte sedimentation rate [facility] Work Phone: Comment on above: Expected: 06/23/2022 , Expires: 08/23/2022 Start: 06-07-2022 [facility] Start: 06-05-2022 End: 07-05-2023 Ct thorax w/o contrast material CT CHEST WO IVCON Radiology Routine Abnormal finding on imaging Ground glass opacity present on imaging of lung Expected: 06/05/2022, Expires: 07/05/2023 [facility] Work Phone: Comment on above: Expected: 06/05/2022 , Expires: 07/05/2023 Start: 05-23-2022 End: 07-23-2022 DANIELLE BY IFA WITH REFLEX [facility] Work Phone: Comment on above: Expected: 05/23/2022 , Expires: 07/23/2022 Start: 05-23-2022 End: 07-23-2022 BLOOD TB SCREEN [facility] Work Phone: Comment on above: Expected: 05/23/2022 , Expires: 07/23/2022 Start: 05-23-2022 End: 07-23-2022 C reactive protein [Mass/volume] in Serum or Plasma [facility] Work Phone: Comment on above: Expected: 05/23/2022 , Expires: 07/23/2022 Start: 05-23-2022 End: 07-23-2022 Chronic hepatitis differentiation between hepatitis B and C virus panel - Serum or Plasma [facility] Work Phone: Comment on above: Expected: 05/23/2022 , Expires: 07/23/2022 Start: 05-23-2022 End: 07-23-2022 Comprehensive metabolic 2000 panel - Serum or Plasma [facility] Work Phone: Comment on above: Expected: 05/23/2022 , Expires: 07/23/2022 Start: 05-23-2022 End: 07-23-2022 Cyclic citrullinated peptide IgG Ab [Units/volume] in Serum or Plasma [facility] Work Phone: Comment on above: Expected: 05/23/2022 , Expires: 07/23/2022 Start: 05-23-2022 End: 07-23-2022 Extractable nuclear Ab panel - Serum [facility] Work Phone: Comment on above: Expected: 05/23/2022 , Expires: 07/23/2022 Start: 05-23-2022 End: 07-23-2022 Rheumatoid factor [Units/volume] in Serum or Plasma [facility] Work Phone: Comment on above: Expected: 05/23/2022 , Expires: 07/23/2022 Start: 05-23-2022 End: 07-23-2022 Thyroglobulin Ab [Units/volume] in Serum or Plasma [facility] Work Phone: Comment on above: Expected: 05/23/2022 , Expires: 07/23/2022 Start: 05-23-2022 End: 07-23-2022 THYROID PEROXIDASE ANTIBODY BLOOD [facility] Work Phone: Comment on above: Expected: 05/23/2022 , Expires: 07/23/2022 Start: 05-23-2022 End: 07-23-2022 Thyrotropin [Units/volume] in Serum or Plasma [facility] Work Phone: Comment on above: Expected: 05/23/2022 , Expires: 07/23/2022 Start: 05-20-2022 End: 07-20-2022 MISC SEND OUT TST 1 MISC SEND OUT TST 1 Lab Routine Family history of hypertrophic cardiomyopathy Family history of genetic disorder Expected: 05/20/2022, Expires: 07/20/2022 [facility] Work Phone: Comment on above: Expected: 05/20/2022 , Expires: 07/20/2022 Start: 05-05-2022 End: 05-05-2023 DANIELLE BY IFA SCREEN [facility] Work Phone: Comment on above: Expected: 05/05/2022 , Expires: 05/05/2023 Start: 05-05-2022 End: 07-05-2022 Basic metabolic 2000 panel - Serum or Plasma [facility] Work Phone: Comment on above: Expected: 05/05/2022 , Expires: 07/05/2022 Start: 05-05-2022 End: 05-05-2023 C reactive protein [Mass/volume] in Serum or Plasma [facility] Work Phone: Comment on above: Expected: 05/05/2022 , Expires: 05/05/2023 Start: 05-05-2022 End: 05-05-2023 Erythrocyte sedimentation rate [facility] Work Phone: Comment on above: Expected: 05/05/2022 , Expires: 05/05/2023 Start: 05-05-2022 End: 05-05-2023 Rheumatoid factor [Units/volume] in Serum or Plasma [facility] Work Phone: Comment on above: Expected: 05/05/2022 , Expires: 05/05/2023 Start: 05-05-2022 End: 07-05-2022 Thyrotropin [Units/volume] in Serum or Plasma [facility] Work Phone: Comment on above: Expected: 05/05/2022 , Expires: 07/05/2022 Start: 12-17-2021 End: 02-16-2022 C reactive protein [Mass/volume] in Serum or Plasma C-REACTIVE PROTEIN (CRP) Lab Routine Elevated sed rate Expected: 12/17/2021, Expires: 02/16/2022 [facility] Work Phone: Comment on above: Expected: 12/17/2021 , Expires: 02/16/2022 Start: 12-17-2021 End: 02-16-2022 Erythrocyte sedimentation rate SED RATE WESTERGREN Lab Routine Elevated sed rate Expected: 12/17/2021, Expires: 02/16/2022 [facility] Work Phone: Comment on above: Expected: 12/17/2021 , Expires: 02/16/2022 Start: 12-17-2021 End: 02-16-2022 T4/FTI/T4U T4/FTI/T4U Lab Routine Hypothyroidism, acquired Expected: 12/17/2021, Expires: 02/16/2022 [facility] Work Phone: Comment on above: Expected: 12/17/2021 , Expires: 02/16/2022 Start: 12-17-2021 End: 02-16-2022 Thyrotropin [Units/volume] in Serum or Plasma TSH BLD Lab Routine Hypothyroidism, acquired Expected: 12/17/2021, Expires: 02/16/2022 [facility] Work Phone: Comment on above: Expected: 12/17/2021 , Expires: 02/16/2022 Start: 12-11-2021 End: 02-03-2023 Thyrotropin [Units/volume] in Serum or Plasma TSH BLD Lab Routine Hypothyroidism, acquired Expected: 12/11/2021, Expires: 05/02/2022 [facility] Work Phone: Comment on above: Expected: 12/11/2021 , Expires: 05/02/2022 Start: 12-11-2021 End: 05-02-2022 Thyroxine (T4) free [Mass/volume] in Serum or Plasma T4 FREE/FREE THYROX Lab Routine Hypothyroidism, acquired Expected: 12/11/2021, Expires: 05/02/2022 [facility] Work Phone: Comment on above: Expected: 12/11/2021 , Expires: 05/02/2022 Start: 12-11-2021 End: 05-02-2022 Triiodothyronine (T3) [Mass/volume] in Serum or Plasma T3 BLD Lab Routine Hypothyroidism, acquired Expected: 12/11/2021, Expires: 05/02/2022 [facility] Work Phone: Comment on above: Expected: 12/11/2021 , Expires: 05/02/2022 Start: 12-05-2021 End: 12-05-2022 DANIELLE BY IFA SCREEN DANIELLE BY IFA SCREEN Lab Routine Elevated sed rate Leukocytosis, unspecified type Expected: 12/05/2021, Expires: 12/05/2022 [facility] Work Phone: Comment on above: Expected: 12/05/2021 , Expires: 12/05/2022 Start: 12-05-2021 End: 12-05-2022 C reactive protein [Mass/volume] in Serum or Plasma C-REACTIVE PROTEIN (CRP) Lab Routine Elevated sed rate Leukocytosis, unspecified type Expected: 12/05/2021, Expires: 12/05/2022 [facility] Work Phone: Comment on above: Expected: 12/05/2021 , Expires: 12/05/2022 Start: 12-05-2021 End: 02-04-2022 CBC W Auto Differential panel - Blood CBC + DIFF Lab Routine Elevated sed rate Leukocytosis, unspecified type Expected: 12/05/2021, Expires: 02/04/2022 [facility] Work Phone: Comment on above: Expected: 12/05/2021 , Expires: 02/04/2022 Start: 12-05-2021 End: 12-05-2022 Erythrocyte sedimentation rate SED RATE WESTERGREN Lab Routine Elevated sed rate Leukocytosis, unspecified type Expected: 12/05/2021, Expires: 12/05/2022 [facility] Work Phone: Comment on above: Expected: 12/05/2021 , Expires: 12/05/2022 Start: 12-05-2021 End: 12-05-2022 Rheumatoid factor [Units/volume] in Serum or Plasma RHEUMATOID FACTOR BL Lab Routine Elevated sed rate Leukocytosis, unspecified type Expected: 12/05/2021, Expires: 12/05/2022 [facility] Work Phone: Comment on above: Expected: 12/05/2021 , Expires: 12/05/2022 Start: 12-04-2021 End: 02-03-2022 CBC W Auto Differential panel - Blood [facility] Work Phone: Comment on above: Expected: 12/04/2021 , Expires: 02/03/2022 Start: 12-04-2021 End: 02-03-2022 Comprehensive metabolic 2000 panel - Serum or Plasma [facility] Work Phone: Comment on above: Expected: 12/04/2021 , Expires: 02/03/2022 Start: 12-04-2021 End: 02-03-2022 Erythrocyte sedimentation rate [facility] Work Phone: Comment on above: Expected: 12/04/2021 , Expires: 02/03/2022 Start: 12-04-2021 Fibrin dgradj produc ts d-dimer quantitative FIBRIN DEGRADATION QUANT [facility] Work Phone: Start: 11-28-2021 Influenza vaccination C [facility] Start: 10-30-2021 End: 12-30-2021 CBC W Auto Differential panel - Blood CBC + DIFF Lab Routine Leukocytosis, unspecified type Expected: 10/30/2021, Expires: 12/30/2021 [facility] Work Phone: Comment on above: Expected: 10/30/2021 , Expires: 12/30/2021 Start: 10-28-2021 End: 12-28-2021 Basic metabolic 2000 panel - Serum or Plasma [facility] Work Phone: Comment on above: Expected: 10/28/2021 , Expires: 12/28/2021 Start: 10-28-2021 End: 12-28-2021 Ferritin [Mass/volume] in Serum or Plasma [facility] Work Phone: Comment on above: Expected: 10/28/2021 , Expires: 12/28/2021 Start: 10-28-2021 End: 12-28-2021 Iron and Iron binding capacity panel - Serum or Plasma [facility] Work Phone: Comment on above: Expected: 10/28/2021 , Expires: 12/28/2021 Start: 10-28-2021 End: 12-28-2021 Thyrotropin [Units/volume] in Serum or Plasma [facility] Work Phone: Comment on above: Expected: 10/28/2021 , Expires: 12/28/2021 Start: 10-28-2021 End: 12-28-2021 Thyroxine (T4) free [Mass/volume] in Serum or Plasma [facility] Work Phone: Comment on above: Expected: 10/28/2021 , Expires: 12/28/2021 Start: 10-28-2021 End: 12-28-2021 Triiodothyronine (T3) [Mass/volume] in Serum or Plasma [facility] Work Phone: Comment on above: Expected: 10/28/2021 , Expires: 12/28/2021 Start: 09-26-2021 Influenza vaccination INFLUENZA (#1) [facility] Comment on above: Postponed from 11/28 (Declined at this time) Start: 07-12-2021 End: 09-11-2021 Comprehensive metabolic 2000 panel - Serum or Plasma [facility] Work Phone: Comment on above: Expected: 07/12/2021 , Expires: 09/11/2021 Start: 11-28-2020 Influenza vaccination Sequenti al Influenza Vaccine (#1) [facility] Start: 07-25-2017 Tetanus vaccination Tetanus: Every 1 0yrs [facility] Start: 07-25-2017 Urine microalbumin profile [facility] Start: 2014 PAP TESTING PAP TESTING [facility] Start: 10-23-2011 Anxiety Screening Anxiety Screening [facility] Start: 10-23-2011 Hepatitis C screening Hepatitis C [facility] Start: 10-23-2011 HEPATITIS C SCREENING HEPATITIS C [facility] Start: 10-23-2011 HIV SCREENING HIV SCREENING [facility] Start: 2008 HIV screening HIV Screening [facility] Start: 2005 Depression screening using PHQ-9 (Patient Health Questionnaire 9) score Depression Screening (PHQ-2/9) [facility] Start: 1998 COVID-19 VACCINE (#1) COVID-19 VACCI NE (#1) [facility] Start: 1998 COVID-19 Vaccine (1) COVID-19 Vaccin e (1) [facility] Start: 1996 History and physical examination, annual for health maintenance Wellness Visit [facility] Start: 04-24-1994 COVID-19 VACCINE (#1) COVID-19 VACCI NE (#1) [facility] Start: 1993 Screening for malign ant neoplasm of cervix Pap Smear [facility] ALERE STREP A TEST (AG) ALERE ST REP A TEST (AG) Lab Routine Sore throat Ordered: 06/22/2021 [facility] Work Phone: Comment on above: Ordered: 06/22/2021 CBC W Auto Different ial panel - Blood CBC + DIFF Lab Routine Iron deficiency anemia, unspecified iron deficiency anemia type 10/28/2021 2:44 PM EDT [facility] Work Phone: CORTISOL SALIVA CORTISOL SALIVA Lab Routine Weight gain Obesity, Class III, BMI 40-49.9 (morbid obesity) (HCC) Ordered: 09/11/2022 [facility] Work Phone: Comment on above: Ordered: 09/11/2022 End: 08-30-2022 ECG COMPLETE ECG COMPLETE ECG Routine Tachycardia 1 Occurrences starting 08/30/2021 until 08/30/2022 [facility] Work Phone: Comment on above: 1 Occurrences starti ng 08/30/2021 until 08/30/2022 End: 05-05-2023 ECG COMPLETE ECG COMPLETE ECG Routine Tachycardia, unspecified 1 Occurrences starting 05/05/2022 until 05/05/2023 [facility] Work Phone: Comment on above: 1 Occurrences starti ng 05/05/2022 until 05/05/2023 End: 08-30-2022 Echocardiography ECHO Cardiology Routine Tachycardia 1 Occurrences starting 08/30/2021 until 08/30/2022 [facility] Work Phone: Comment on above: 1 Occurrences starti ng 08/30/2021 until 08/30/2022 End: 06-25-2023 EGD DIAGNOSTIC EGD DIAGNOSTIC Endoscopy Routine GERD without esophagitis 1 Occurrences starting 06/24/2022 until 06/25/2023 [facility] Work Phone: Comment on above: 1 Occurrences starti ng 06/24/2022 until 06/25/2023 Influenza virus A an d B RNA and SARS-CoV-2 (COVID-19) N gene panel - Respiratory specimen by ABDIAS with probe detection COVID WITH FLUA+B, ROUTINE Microbiology Routine URI, acute 05/07/2022 3:02 PM EST [facility] Work Phone: End: 07-23-2023 MIRACLE DIAGNOSTIC BILATERAL MIRACLE DIAGNOSTIC BILATERAL Radiology Routine Lymphadenopathy, axillary Pain in axilla, unspecified laterality 1 Occurrences starting 06/23/2022 until 07/23/2023 [facility] Work Phone: Comment on above: 1 Occurrences starti ng 06/23/2022 until 07/23/2023 End: 07-05-2023 NITRIC OXIDE, EXHALED NITRIC OXIDE, EXHALED PFT Routine Wheezing 1 Occurrences starting 06/05/2022 until 07/05/2023 [facility] Work Phone: Comment on above: 1 Occurrences starti ng 06/05/2022 until 07/05/2023 End: 03-26-2023 NM CARDIAC PERF STRESS/EXERCISE NM CARDIAC PERF STRESS/EXERCISE Radiology Routine Tachycardia Encounter for screening for cardiovascular disorders SAHU (dyspnea on exertion) Chest tightness 1 Occurrences starting 02/24/2022 until 03/26/2023 [facility] Work Phone: Comment on above: 1 Occurrences starti ng 02/24/2022 until 03/26/2023 OUTSIDE VENDOR CARDI AC OUTPATIENT EXTENDED RHYTHM RECORDING (WITHOUT TELEMETRY) OUTSIDE VENDOR CARDIAC OUTPATIENT EXTENDED RHYTHM RECORDING (WITHOUT TELEMETRY) Holter Routine Tachycardia Ordered: 09/02/2021 [facility] Work Phone: Comment on above: Ordered: 09/02/2021 OUTSIDE VENDOR CARDI AC OUTPATIENT EXTENDED RHYTHM RECORDING (WITHOUT TELEMETRY) OUTSIDE VENDOR CARDIAC OUTPATIENT EXTENDED RHYTHM RECORDING (WITHOUT TELEMETRY) Holter Routine Tachycardia Palpitations Ordered: 12/17/2021 [facility] Work Phone: Comment on above: Ordered: 12/17/2021 Patient Education [facility] Work Phone: Patient referral [place] Work Phone: PT PLAN OF CARE CERTIFICATION PT PLAN OF CARE CERTIFICATION Procedures Routine Chest wall pain Ordered: 12/20/2021 [facility] Comment on above: Ordered: 12/20/2021 PT PLAN OF CARE CERTIFICATION PT PLAN OF CARE CERTIFICATION Procedures Routine Swelling of both hands Secondary lymphedema Leg swelling Ordered: 07/21/2022 [facility] Comment on above: Ordered: 07/21/2022 End: 06-04-2023 Radiologic exam chest 2 views XR CHEST 2V FRONTAL/LAT Radiology Routine Abnormal x-ray 1 Occurrences starting 05/05/2022 until 06/04/2023 [facility] Work Phone: Comment on above: 1 Occurrences starti ng 05/05/2022 until 06/04/2023 End: 06-20-2023 Radiologic exam chest 2 views XR CHEST 2V FRONTAL/LAT Radiology Routine Abnormal x-ray 1 Occurrences starting 05/21/2022 until 06/20/2023 [facility] Work Phone: Comment on above: 1 Occurrences starti ng 05/21/2022 until 06/20/2023 End: 07-05-2023 SPIROMETRY WITH DILATOR IF OBSTRUCTED SPIROMETRY WITH DILATOR IF OBSTRUCTED PFT Routine Wheezing 1 Occurrences starting 06/05/2022 until 07/05/2023 [facility] Work Phone: Comment on above: 1 Occurrences starti ng 06/05/2022 until 07/05/2023 SPIROMETRY WITH DILA TOR IF OBSTRUCTED SPIROMETRY WITH DILATOR IF OBSTRUCTED PFT Routine Wheezing 06/16/2022 9:45 AM EDT [facility] Work Phone: End: 07-23-2023 US BREAST LTD LEFT US BREAST LTD LEFT Radiology Routine Lymphadenopathy, axillary Pain in axilla, unspecified laterality 1 Occurrences starting 06/23/2022 until 07/23/2023 [facility] Work Phone: Comment on above: 1 Occurrences starti ng 06/23/2022 until 07/23/2023 End: 07-23-2023 US BREAST LTD RIGHT US BREAST LTD RIGHT Radiology Routine Lymphadenopathy, axillary Pain in axilla, unspecified laterality 1 Occurrences starting 06/23/2022 until 07/23/2023 [facility] Work Phone: Comment on above: 1 Occurrences starti ng 06/23/2022 until 07/23/2023 End: 06-22-2023 US HAND/WRIST SYNOVIAL SCREEN RT [facility] Work Phone: Comment on above: 1 Occurrences starti ng 05/23/2022 until 06/22/2023 [facility] Immunizations Immunization Date Immunization Notes Care Provider Bruna mccormack 07-26-2007 tetanus toxoid, redu jeff diphtheria toxoid, and acellular pertussis vaccine, adsorbed Dank Jung BALANCE BRIDGE INSPECTOR.THEORETICAL PHYSICIST Work Phone: [facility] 01-01-1999 diphtheria, tetanus toxoids and pertussis vaccine Dank Jung BALANCE BRIDGE INSPECTOR.THEORETICAL PHYSICIST Work Phone: [facility] 08-23-1998 measles, mumps and rubella virus vaccine Dank Jung BALANCE BRIDGE INSPECTOR.THEORETICAL PHYSICIST Work Phone: [facility] 08-23-1998 trivalent poliovirus vaccine, live, oral Dank Jung BALANCE BRIDGE INSPECTOR.THEORETICAL PHYSICIST Work Phone: [facility] 07-24-1998 diphtheria, tetanus toxoids and pertussis vaccine Dank Jung BALANCE BRIDGE INSPECTOR.THEORETICAL PHYSICIST Work Phone: [facility] 07-24-1998 poliovirus vaccine, inactivated Dank Jung BALANCE BRIDGE INSPECTOR.THEORETICAL PHYSICIST Work Phone: [facility] 01-22-1995 diphtheria, tetanus toxoids and pertussis vaccine Dank Jung BALANCE BRIDGE INSPECTOR.THEORETICAL PHYSICIST Work Phone: [facility] 01-22-1995 measles, mumps and rubella virus vaccine Dank Jung BALANCE BRIDGE INSPECTOR.THEORETICAL PHYSICIST Work Phone: [facility] 07-16-1994 hepatitis B vaccine, pediatric or pediatric/adolescent dosage Dank Jung BALANCE BRIDGE INSPECTOR.THEORETICAL PHYSICIST Work Phone: [facility] 05-21-1994 diphtheria, tetanus toxoids and pertussis vaccine Dank Jung BALANCE BRIDGE INSPECTOR.THEORETICAL PHYSICIST Work Phone: [facility] 05-21-1994 haemophilus influenz ae type b vaccine, HbOC conjugate Dank Jung BALANCE BRIDGE INSPECTOR.THEORETICAL PHYSICIST Work Phone: [facility] 05-21-1994 poliovirus vaccine, inactivated Dank Jung BALANCE BRIDGE INSPECTOR.THEORETICAL PHYSICIST Work Phone: [facility] 03-05-1994 diphtheria, tetanus toxoids and pertussis vaccine Dank Jung BALANCE BRIDGE INSPECTOR.THEORETICAL PHYSICIST Work Phone: [facility] 03-05-1994 haemophilus influenz ae type b vaccine, HbOC conjugate Dank Jung BALANCE BRIDGE INSPECTOR.THEORETICAL PHYSICIST Work Phone: [facility] 03-05-1994 hepatitis B vaccine, pediatric or pediatric/adolescent dosage Dank Jung BALANCE BRIDGE INSPECTOR.THEORETICAL PHYSICIST Work Phone: [facility] 03-05-1994 poliovirus vaccine, inactivated Dank Jung BALANCE BRIDGE INSPECTOR.THEORETICAL PHYSICIST Work Phone: [facility] 02-05-1994 haemophilus influenz ae type b vaccine, HbOC conjugate Dank Jung BALANCE BRIDGE INSPECTOR.THEORETICAL PHYSICIST Work Phone: [facility] 02-05-1994 hepatitis B vaccine, pediatric or pediatric/adolescent dosage Dank Jung BALANCE BRIDGE INSPECTOR.THEORETICAL PHYSICIST Work Phone: [facility] 01-01-1994 diphtheria, tetanus toxoids and pertussis vaccine Dank Jung BALANCE BRIDGE INSPECTOR.THEORETICAL PHYSICIST Work Phone: [facility] 01-01-1994 poliovirus vaccine, inactivated Dank Jung BALANCE BRIDGE INSPECTOR.THEORETICAL PHYSICIST Work Phone: [facility] Payers Date Payer Category Payer Private Health Insurance STEHPY RAMIREZ [id number] 2022 Unknown STEPHY KAPLAN X [id number] 2022-Present [phone] [place] [id number] [facility] [id number] 2022 Self-pay [id number] 2022 Unknown [id number] 2022 Medicaid [id number] 2019 Medicaid [id number] 2019 Medicaid [id number] 2019 Medicaid [employer] [id number] 2019-[facility] [phone] [address] [place] [address] Medicaid [id number] 1993 Unknown [id number] 903 1993 Unknown [id number] 903 1993 Unknown [id number] 651 Unknown [id number] Unknown [id number]. 462 Unknown [id number]. 462 Unknown [id number]. 462 Unknown [id number]. 462 Unknown [id number] [id number]. 462 Unknown [id number]. 462 Unknown [id number]. 462 Unknown [id number]. 462 Unknown [id number]. 462 Unknown [id number]. 462 Social History Date Type Detail Facility Start: 02-09-2021 End: 03-30-2023 Tobacco smoking status MOIS Tobacco smoking consumption unknown [facility] Start: 1993 Sex Assigned At Not on file O [facility] Start: 06-12-2021 End: 02-24-2022 Exposure to SARS-CoV-2 (event) Not sure [facility] Start: 11-18-2018 End: 07-25-2024 Tobacco smoking status [facility] Never smoked tobacco [facility] Start: 11-18-2018 End: 11-16-2021 Tobacco use and exposure Smokeless tobacco non-user [facility] Start: 06-22-2021 End: 05-21-2022 Alcohol intake Lifetime non-drinker (finding) [facility] Start: 12-16-2018 History SDOH Alcohol Frequency 1 [facility] Start: 11-01-2019 None [facility] Start: 04-07-2019 Spouse/ Signif icant Other [facility] Start: 1995 Sex Assigned At Female [facility] Start: 09-10-2021 End: 09-20-2021 Exposure to SARS-CoV-2 (event) Unable to assess [facility] Work Phone: Start: 06-16-2022 End: 08-23-2024 Alcohol intake Ex-drinker (finding) [facility] Start: 12-16-2018 End: 08-22-2022 History of Social function [facility] Start: 12-16-2018 End: 08-22-2022 Alcohol Use Disorder Identification Test - Consumption [AUDIT-C] [facility] How often to you hav e a drink containing alcohol? Never [facility] Average Number of Drinks Not on file [facility] Work Phone: Start: 06-20-2024 Sex Female (finding) [facility] NEGATED: Highlighted row [facility] Mental Status Date Assessment Result Facility 09-05-2022 Cognitive function Level Of Cons ciousness Awake;Alert;Appropriate;Follow s Commands [facility] Work Phone: 06-07-2022 Cognitive function Level Of Cons ciousness Awake;Alert;Appropriate;Follow s Commands [facility] Work Phone: Clinical Notes 05-06-2021 to 08-23-2024 Helene Miranda APRN.THEORETICAL PHYSICIST - 08/23/2024 11:51 AM EDTTelephone Encounter - Eli Bowman RN - 07/11/2024 7:59 AM EDTTelephone Encounter - Eli Bowman RN - 07/11/2024 7:59 AM EDT Note Date & Type Note Facility 08-23-2024 Note HNO ID: [id number] Author: HELENE MIRANDA APRN.THEORETICAL PHYSICIST Service: ? Author Type: Nurse Practitioner Type: Progress Notes Filed: 08/23/2024 12:11 Note Text: [facility] Subjective Lakshmi Mcgee is a 28 year old female. Patient presents with: Ear Pain: Left ear pain and GORDON x 1 week Patient complains of left ear pain and headache for the last 8 days. Patient states that the headache started after the ear pain and she is currently taking 500 mg of tylenol twice a day. Pain is rated 7-8/10. Patient reports she has had ear infections in the past but not within the last year. Patient has seasonal allergies but has not taken any allergy medication. Denies vision changes, head trauma, nausea, and vomiting. Ear Pain Associated symptoms include headaches. Pertinent negatives include no nausea, sore throat or vomiting. Review of Systems HENT: Positive for ear pain. Negative for ear discharge, hearing loss, sinus pressure and sore throat. Gastrointestinal: Negative for nausea and vomiting. Neurological: Positive for headaches. Negative for dizziness. PAST MEDICAL HISTORY Diagnosis Date Depression Hypothyroidism, acquired 07/12/2021 Obesity, Class III, BMI 40-49.9 (morbid obesity) 02/22/2021 Pes cavus 07/12/2021 PAST SURGICAL HISTORY Procedure Laterality Date CYST/MOLE REMOVAL ovary EGD W/O [facility] SPEC VARICIES INJ Bilateral 09/04/2022 ALLERGIES Azithromycin and Megestrol MEDICATIONS Cholecalciferol, Vitamin D3, 25 mcg (1,000 unit) cap take 1 capsule by mouth once daily metoprolol tartrate, short acting, (LOPRESSOR) 50 mg tablet take 1 tablet by mouth twice a day sertraline (ZOLOFT) 100 mg tablet Take 1 tablet by mouth once daily. levothyroxine (LEVOXYL) 75 mcg tablet Take 1 tablet by mouth once daily. Take on empty stomach. For thyroid. furosemide (LASIX) 20 mg tablet Take 1 tablet by mouth every other day. amoxicillin (AMOXIL) 875 mg tablet Take 1 tablet by mouth two times a day for 7 days. albuterol HFA (VENTOLIN HFA) 90 mcg/actuation inhaler Inhale 2 Puffs as instructed every 4 hours as needed for wheezing/shortness of breath. (Patient not taking: Reported on 08/23/2024) mometasone (ELOCON) 0.1 % cream Apply 1 application to affected area once daily. (Patient not taking: Reported on 08/23/2024) cyclobenzaprine (FLEXERIL) 10 mg tablet Take 10 mg by mouth as needed. (Patient not taking: Reported on 08/23/2024) norgestimate 0.25 mg-ethinyl estradiol 35 mcg (SPRINTEC, ORTHO-CYCLEN) 0.25-35 mg-mcg per tablet Take 1 tablet by mouth once daily. (Patient not taking: Reported on 08/23/2024) FAMILY HISTORY Problem Relation Age of Onset [...] Never Smokeless tobacco: Never Vaping Use Vaping status: Never Used Substance Use Topics Alcohol use: Not Currently Drug use: Never Objective BP 110/76 Pulse 85 Temp 36.9 ?C (98.4 ?F) (Tympanic) Resp 18 Wt 120 kg (264 lb 9.5 oz) LMP 01/10/2023 SpO2 98% BMI 53.44 kg/m? Physical Exam HENT: Head: Normocephalic. Right Ear: Tympanic membrane, ear canal and external ear normal. Left Ear: Tenderness present. Tympanic membrane is erythematous and bulging. Mouth/Throat: Mouth: Mucous membranes are moist. Pharynx: Oropharynx is clear. Uvula midline. Cardiovascular: Rate and Rhythm: Normal rate and regular rhythm. Heart sounds: Normal heart sounds. Pulmonary: Effort: Pulmonary effort is normal. Breath sounds: Normal breath sounds. Skin: General: Skin is warm and dry. Neurological: Mental Status: She is alert and oriented to person, place, and time. {ASSESSMENT/PLAN: 1. Acute otitis media, left - ICD9: 382.9, ICD10: H66.92 - Will begin treatment with Amoxicillin for 7 days. - Educated about supportive care with plenty of fluids, rest, and analgesia prn. Patient also educated to start taking Claritin. - Patient agreeable to care plan. Will follow up if symptoms persist or worsen. - AMOXICILLIN 875 MG TABLET Renny Royal TEACHING PROVIDER (Physician/PA/BALANCE BRIDGE INSPECTOR) NOTE OF PERSONAL INVOLVEMENT IN CARE: I have personally seen and examined the patient and performed the medical decision-making components. I have reviewed the Advanced Practice Registered Nurse (BALANCE BRIDGE INSPECTOR) Student's documentation and verified the findings in the note as written. Any additions or changes are noted in bold/italics. Signature: Helene Miranda Date: 08/23/2024 Time: 12:11 PM MDM Procedures [facility] 08-23-2024 History of Presen t illness Narrative [facility] Subjective Lakshmi Mcgee is a 28 year old female. Patient presents with: Ear Pain: Left ear pain and GORDON x 1 week Patient complains of left ear pain and headache for the last 8 days. Patient states that the headache started after the ear pain and she is currently taking 500 mg of tylenol twice a day. Pain is rated 7-8/10. Patient reports she has had ear infections in the past but not within the last year. Patient has seasonal allergies but has not taken any allergy medication. Denies vision changes, head trauma, nausea, and vomiting. Ear Pain Associated symptoms include headaches. Pertinent negatives include no nausea, sore throat or vomiting. Review of Systems HENT: Positive for ear pain. Negative for ear discharge, hearing loss, sinus pressure and sore throat. Gastrointestinal: Negative for nausea and vomiting. Neurological: Positive for headaches. Negative for dizziness. PAST MEDICAL HISTORY Diagnosis Date Depression Hypothyroidism, acquired 07/12/2021 Obesity, Class III, BMI 40-49.9 (morbid obesity) 02/22/2021 Pes cavus 07/12/2021 PAST SURGICAL HISTORY Procedure Laterality Date CYST/MOLE REMOVAL ovary EGD W/O [facility] SPEC VARICIES INJ Bilateral 09/04/2022 ALLERGIES Azithromycin and Megestrol MEDICATIONS Cholecalciferol, Vitamin D3, 25 mcg (1,000 unit) cap take 1 capsule by mouth once daily metoprolol tartrate, short acting, (LOPRESSOR) 50 mg tablet take 1 tablet by mouth twice a day sertraline (ZOLOFT) 100 mg tablet Take 1 tablet by mouth once daily. levothyroxine (LEVOXYL) 75 mcg tablet Take 1 tablet by mouth once daily. Take on empty stomach. For thyroid. furosemide (LASIX) 20 mg tablet Take 1 tablet by mouth every other day. amoxicillin (AMOXIL) 875 mg tablet Take 1 tablet by mouth two times a day for 7 days. albuterol HFA (VENTOLIN HFA) 90 mcg/actuation inhaler Inhale 2 Puffs as instructed every 4 hours as needed for wheezing/shortness of breath. (Patient not taking: Reported on 08/23/2024) mometasone (ELOCON) 0.1 % cream Apply 1 application to affected area once daily. (Patient not taking: Reported on 08/23/2024) cyclobenzaprine (FLEXERIL) 10 mg tablet Take 10 mg by mouth as needed. (Patient not taking: Reported on 08/23/2024) norgestimate 0.25 mg-ethinyl estradiol 35 mcg (SPRINTEC, ORTHO-CYCLEN) 0.25-35 mg-mcg per tablet Take 1 tablet by mouth once daily. (Patient not taking: Reported on 08/23/2024) FAMILY HISTORY Problem Relation Age of Onset [...] Never Smokeless tobacco: Never Vaping Use Vaping status: Never Used Substance Use Topics Alcohol use: Not Currently Drug use: Never Objective BP 110/76 Pulse 85 Temp 36.9 C (98.4 F) (Tympanic) Resp 18 Wt 120 kg (264 lb 9.5 oz) LMP 01/10/2023 SpO2 98% BMI 53.44 kg/m Physical Exam HENT: Head: Normocephalic. Right Ear: Tympanic membrane, ear canal and external ear normal. Left Ear: Tenderness present. Tympanic membrane is erythematous and bulging. Mouth/Throat: Mouth: Mucous membranes are moist. Pharynx: Oropharynx is clear. Uvula midline. Cardiovascular: Rate and Rhythm: Normal rate and regular rhythm. Heart sounds: Normal heart sounds. Pulmonary: Effort: Pulmonary effort is normal. Breath sounds: Normal breath sounds. Skin: General: Skin is warm and dry. Neurological: Mental Status: She is alert and oriented to person, place, and time. {ASSESSMENT/PLAN: 1. Acute otitis media, left - ICD9: 382.9, ICD10: H66.92 - Will begin treatment with Amoxicillin for 7 days. - Educated about supportive care with plenty of fluids, rest, and analgesia prn. Patient also educated to start taking Claritin. - Patient agreeable to care plan. Will follow up if symptoms persist or worsen. - AMOXICILLIN 875 MG TABLET Renny Royal TEACHING PROVIDER (Physician/PA/BALANCE BRIDGE INSPECTOR) NOTE OF PERSONAL INVOLVEMENT IN CARE: I have personally seen and examined the patient and performed the medical decision-making components. I have reviewed the Advanced Practice Registered Nurse (BALANCE BRIDGE INSPECTOR) Student's documentation and verified the findings in the note as written. Any additions or changes are noted in bold/italics. Signature: Helene Miranda Date: 08/23/2024 Time: 12:11 PM MDM Procedures documented in this encounter [facility] 07-11-2024 Telephone encount er Note Pharmacy electronically requests the following refill(s) Requested Prescriptions Pending Prescriptions Disp Refills metoprolol tartrate, short acting, (LOPRESSOR) 50 mg tablet [Pharmacy Med Name: METOPROLOL TARTRATE 50 MG TAB] 180 tablet 3 Sig: take 1 tablet by mouth twice a day Eli Bowman RN [facility] 07-11-2024 Miscellaneous Notes Formattin g of this note is different from the original. Pharmacy electronically requests the following refill(s) Requested Prescriptions Pending Prescriptions Disp Refills metoprolol tartrate, short acting, (LOPRESSOR) 50 mg tablet [Pharmacy Med Name: METOPROLOL TARTRATE 50 MG TAB] 180 tablet 3 Sig: take 1 tablet by mouth twice a day Eli Bowman RN documented in this encounter [facility] 06-13-2024 Evaluation note Diagnosis Onset Date Resolution Fatigue chronic June 13 1:58pm Hypothyroid chronic June 13, 2 025 1:58pm Intermittent palpitations chronic June 13, 2024 1:58pm [facility] Work Phone: 1(636) 301-347303-17-2025 Evaluation note* Diagnosis Onset Date Resolution Status Admit Date Fatigue chronic June 13 1:58pm Hypothyroid chronic June 13, 2 025 1:58pm Intermittent palpitations chronic June 13, 2024 1:58pm Vaginal odor acute July 25, 2024 12:19pm Encounter for routine gynecological examination noneactive July 25, 2024 12:19pm Right shoulder pain acute September 16, 2024 2:04pm [facility] Work Phone: 1(290) 584-905803-03-2025 Telephone encounter Note* Telephone Encounter - Yudelka Diaz MA - 05/30/2024 12:47 PM EST Prescription Refill Information The patient has been identified by name and date of : Yes Caregiver verified no other encounters exist for this prescription request: Yes Caregiver confirmed with patient/requestor that no other refills are due, in the near future, with this provider at this time: Yes The last office visit in the department: 01/23/23 Does the patient have a future office visit with this provider/department: No. Canceled 6 month f/uscheduled 07/22/23 and never rescheduled. Requested Prescriptions Pending Prescriptions Disp Refills sertraline (ZOLOFT) 100 mg tablet 90 tablet 1 Sig: Take 1 tablet by mouth once daily. Yudelak Diaz MA May 30, 2024 12:47 PM [facility]03-03-2025 Miscellaneous Notes* Telephone Encounter - Yudelka Diaz MA - 05/30/2024 12:47 PM EST Prescription Refill Information The patient has been identified by name and date of : Yes Caregiver verified no other encounters exist for this prescription request: Yes Caregiver confirmed with patient/requestor that no other refills are due, in the near future, with this provider at this time: Yes The last office visit in the department: 01/23/23 Does the patient have a future office visit with this provider/department: No. Canceled 6 month f/uscheduled 07/22/23 and never rescheduled. Requested Prescriptions Pending Prescriptions Disp Refills sertraline (ZOLOFT) 100 mg tablet 90 tablet 1 Sig: Take 1 tablet by mouth once daily. Yudelka Diaz MA May 30, 2024 12:47 PM [facility] Telephone encounter Note * Telephone Encounter - Stella Frost MA - 12/28/2023 2:45 PM EDT Prescription Refill Information The patient has been identified by name and date of : Yes Caregiver verified no other encounters exist for this prescription request: Yes Caregiver confirmed with patient/requestor that no other refills are due, in the near future, with this provider at this time: No The last office visit in the department: 02/24/23 Does the patient have a future office visit with this provider/department: No Requested Prescriptions Pending Prescriptions Disp Refills sertraline (ZOLOFT) 100 mg tablet 90 tablet 1 Sig: Take 1 tablet by mouth once daily. Cholecalciferol, Vitamin D3, 25 mcg (1,000 unit) cap 30 capsule 5 Sig: Take 1 capsule by mouth once daily. Stella Frost MA December 28, 2023 2:45 PM [facility]09-30-2024 Miscellaneous Notes* Telephone Encounter - Stella Frost MA - 12/28/2023 2:45 PM EDT Prescription Refill Information The patient has been identified by name and date of : Yes Caregiver verified no other encounters exist for this prescription request: Yes Caregiver confirmed with patient/requestor that no other refills are due, in the near future, with this provider at this time: No The last office visit in the department: 02/24/23 Does the patient have a future office visit with this provider/department: No Requested Prescriptions Pending Prescriptions Disp Refills sertraline (ZOLOFT) 100 mg tablet 90 tablet 1 Sig: Take 1 tablet by mouth once daily. Cholecalciferol, Vitamin D3, 25 mcg (1,000 unit) cap 30 capsule 5 Sig: Take 1 capsule by mouth once daily. Stella Frost MA December 28, 2023 2:45 PM documented in [facility] encounterZ[facility]05-[facility]24 Telephone encounter Note * Telephone Encounter - Leslie Sanders OCCA - 08/19/2023 7:06 AM EDT Patient has been identified by name and date of : Yes Patient phones for refill(s): Requested Prescriptions Pending Prescriptions Disp Refills levothyroxine (LEVOXYL) 75 mcg tablet 30 tablet 2 Sig: Take 1 tablet by mouth once daily. Take on empty stomach. For thyroid. Refused Prescriptions Disp Refills Cholecalciferol, Vitamin D3, 25 mcg (1,000 unit) cap 30 capsule 5 Sig: Take 1 capsule by mouth once daily. Date of last office visit in primary care: 01/23/2023 Date of next office visit in primary care: Visit date not found Please advise. Thank you. KAITLYNN Guillen. [facility]05-22-2024 Miscellaneous Notes* Telephone Encounter - Leslie Sanders OCCA - 08/19/2023 7:06 AM EDT Patient has been identified by name and date of : Yes Patient phones for refill(s): Requested Prescriptions Pending Prescriptions Disp Refills levothyroxine (LEVOXYL) 75 mcg tablet 30 tablet 2 Sig: Take 1 tablet by mouth once daily. Take on empty stomach. For thyroid. Refused Prescriptions Disp Refills Cholecalciferol, Vitamin D3, 25 mcg (1,000 unit) cap 30 capsule 5 Sig: Take 1 capsule by mouth once daily. Date of last office visit in primary care: 01/23/2023 Date of next office visit in primary care: Visit date not found Please advise. Thank you. KAITLYNN Guillen. documented in this encounterZ[facility]04-15-2024 Miscellaneous Notes* Telephone Encounter - Karolyn Hall LPN - 07/13/2023 3:40 PM EDT Patient's request for medication is as follows: Requested Prescriptions Pending Prescriptions Disp Refills metoprolol tartrate, short acting, (LOPRESSOR) 50 mg tablet [Pharmacy Med Name: METOPROLOL [id number] MG TAB] 180 tablet 3 Sig: take 1 tablet by mouth twice a day Last seen 01/12/2023. On recall list for 12/2023. Prescription(s) as above. Please process accordingly. Karolyn Hall LPN documented in this encounterZ[facility]04-15-2024 Miscellaneous Notes* Telephone Encounter - Gerardo Ríos LPN - 07/13/2023 9:27 AM EDT Patient MyChart message requesting the following refill Refill(s) Requested: Requested Prescriptions Pending Prescriptions Disp Refills sertraline (ZOLOFT) 100 mg tablet 90 tablet 1 Sig: Take 1 tablet by mouth once daily. ALLERGIES Allergen Reactions Azithromycin GI Upset Megestrol Unknown (home) [phone] (work) [phone] (cell) Last Office Visit Date: 01/23/2023 Last [facility] Visit: Visit date not found Future Appointment: Visit date not found The patients preferred pharmacy has been captured for this encounter? yes Request is for script(s) to be escript to pharmacy. Gerardo Ríos LPN documented in this encounterZ[facility]02-16-2024 Miscellaneous Notes* Telephone Encounter - Vladimir Pope LPN - 05/15/2023 4:34 PM EST Patient has been identified by name and date of : Yes Patient phones for refill(s): Requested Prescriptions Pending Prescriptions Disp Refills levothyroxine (LEVOXYL) 75 mcg tablet 30 tablet 2 Sig: Take 1 tablet by mouth once daily. Take on empty stomach. For thyroid. furosemide (LASIX) 20 mg tablet 15 tablet 11 Sig: Take 1 tablet by mouth every other day. Cholecalciferol, Vitamin D3, 25 mcg (1,000 unit) cap 30 capsule 5 Sig: Take 1 capsule by mouth once daily. Date of last office visit in primary care: 01/23/2023 Date of next office visit in primary care: 07/22/2023 Please advise. Thank you. Vladimir Pope LPN. documented in this encounterZ[facility]10-16-2023 History of Present illness Narrative* Raeann Interiano MD - 01/12/2023 11:37 AM EDT Images from the original note were not included. Raeann Interiano MD Interventional Cardiology [address] [place] [address] Chief Complaint No chief complaint on file. [...] 2 Puffs as instructed every 4 hours asneeded for wheezing/shortness of breath. 1 Each 3 Cholecalciferol, Vitamin D3, 25 mcg (1,000 unit) cap Take 1 capsule by mouth once daily. 30 capsule5 cyclobenzaprine (FLEXERIL) 10 mg tablet Take 10 mg by mouth as needed. furosemide (LASIX) 20 mg tablet Take 1 tablet by mouth once daily. 30 tablet 1 levothyroxine (LEVOXYL) 75 mcg tablet Take 1 tablet by mouth once daily. Take on empty stomach. Forthyroid. 30 tablet 2 metoprolol tartrate, short acting, (LOPRESSOR) 50 mg tablet Take 1 tablet by mouth two times a day.60 tablet 5 mometasone (ELOCON) 0.1 % cream [...] BP Position BP Site BP Cuff Size 01/12/231121 -- -- 115/77 94 -- -- -- Peak Flow Date and Time PF Resp 01/12/23 112 -- 97 Last 2 Encounter Wt Readings: [...] INR: Lipid Profile: No results found for: CHOL, HDL, LDL, TG Hemoglobin A1C: No results found for: [...] to correct any errors. documented in this encounterZ[facility]ville [facility] Hospital10-04-2023 Miscellaneous Notes* Telephone Encounter - Karolyn Urias - 12/31/2022 1:53 PM EDT Pharmacy verified in [facility] Patient has been identified by name and [...] advise. Karolyn Cordova Pss documented in this encounterZanesville City Hospital08-14-2023 Miscellaneous Notes* Telephone Encounter - Cha Gomez - 11/10/2022 11:39 AM EDT Faced to [facility] Cha Gomez * Telephone Encounter - Rene Doherty MD - 11/10/2022 10:28 AM EDT Ok to do * Telephone Encounter - Dayanara Yung - 11/09/2022 2:22 PM EDT Pt ins is OON. Closest [facility] location is [facility] and pt does not wish to travel. She has requested the order be faxed to [facility]. Please advise. Dayanara Wallace * Telephone Encounter - Rene Doherty MD - 11/08/2022 10:31 AM EDT Was this set up? * Telephone Encounter - Sarah Cook - 10/08/2022 9:[address] order and route to scheduling once order is placed so we can call to schedule * Telephone Encounter - Ashanti Durán LPN - 10/07/2022 3:47 PM EDT Patient notified. Verbalized understanding. Forwarding to be scheduled. Patient aware. * Telephone Encounter - Rene Doherty MD - 10/07/2022 3:36 PM EDT Let her know lymph node is stable on us. They recommend repeat us in six months documented in this encounterZanesville City Hospital08-09-2023 Miscellaneous Notes* Telephone Encounter - Cha Gomez - 11/05/2022 11:10 AM EDT Patient informed and verbalized understanding. Cha Gomez * Telephone Encounter - Rene Doherty MD - 11/05/2022 10:44 AM EDT Repeat liver labs were good. * Telephone Encounter - Vladimir Pope LPN - 11/05/2022 10:29 AM EDT TC to pt, notified of results/provider response. Pt states she has not had any more fevers and is feeling a lot better. She states infection is almost gone. Pt states provider had something about checking her liver? I do not see any labs or an ultrasound. Please advise. Vladimir Pope LPN * Telephone Encounter - Pilar Donato LPN - 11/03/2022 10:32 AM EDT Left message to call and speak with nurse. * Telephone Encounter - Rene Doherty MD - 11/03/2022 8:06 AM EDT Labs are overall ok. Check how feeling. Any more fevers etc? The bnp or heart test is actually better. It is at a level that usually is not significant. documented in this encounterZanesville City Hospital07-17-2023 Miscellaneous Notes* Telephone Encounter - Vladimir Pope LPN - 10/13/2022 6:16 PM EDT MY 07/21/22 NOV no upcoming appt * Telephone Encounter - Asuncion Porter - 10/13/2022 1:52 PM EDT Patient has been identified by name and date of : Yes Requested Prescriptions Pending Prescriptions Disp Refills levothyroxine (LEVOXYL) 75 mcg tablet 30 tablet 2 Sig: Take 1 tablet by mouth once daily. Take on empty stomach. For thyroid. RX INSTRUCTIONS: Patient aware RX will be sent to pharmacy. No need to notify patient. Asuncion Mcgrath documented in this encounterZanesville City Hospital07-11-2023 History of Present illness Narrative* Neema Ortiz RT(R) - 10/07/2022 2:00 PM EDT Radiology Service Progress Note PATIENT NAME: Lakshmi Mcgee DATE OF SERVICE: October 07, 2022 TIME: 2:11 PM PATIENT IDENTITY VERIFICATION COMPLETED USING TWO (2) IDENTIFIERS: Name and Date of confirmedby patient verbally. FALL SCREENING: Has the patient [...] 07, 2022 2:11 PM documented in this encounterZanesville City Hospital07-11-2023 History of Present illness Narrative* Anju Reed RDMS - 10/07/2022 1:45 PM EDT Radiology Service Progress Note PATIENT NAME: Lakshmi Mcgee DATE OF SERVICE: October 07, 2022 TIME: 2:53 PM PATIENT IDENTITY VERIFICATION COMPLETED USING TWO (2) IDENTIFIERS: Name and Date of confirmedby patient verbally. FALL SCREENING: Has the patient [...] 07, 2022 2:53 PM documented in this encounterZanesville City Hospital06-16-2023 Instructions* Patient Instructions* Cassy López PA-C - 09/12/2022 2:07 PM EDT The following instructions are important for you related to your office visit today with the [facility] [facility] INSTRUCTIONS FOR PEPTIC ULCER [...] epigastric pain, burning, difficulty swallowing or food stickingshould be relayed to your physician. Feeling full early after eating, or black, tarry, foul smelling stools are also worrisome. If you have any difficulties or concerns, you should contact our office immediately. If you note any additional difficulties, questions, or concerns, you should contact our office immediately @ [phone] and ask to be transferred to the General Surgery department. documented in this encounterZanesville City Hospital06-16-2023 History of Present illness Narrative* Cassy López PA-C - 09/12/2022 1:49 PM EDT FOLLOW UP VISIT - ENDOSCOPY NAME: Lakshmi Townsend [facility] NO.: [id number] DATE OF SERVICE: 09/12/2022 : 1995 REFERRING PHYSICIAN: Rene Doherty MD Lakshmi is a patient I am following with Dr. Carlisle for esophageal and upper abdominal discomfort. Dr. Carlisle performed upper endoscopy on 09/04/22 at [facility]. The patient was found to have [...] C (97.9 F), height 149.9 cm (4' 11), weight 109.3 kg (241 lb), last menstrual period 05/30/2022, SpO2 94 %. General: patient is alert, cooperative, pleasant and in no acute distress On examination, the abdomen is benign. Assessment IMPRESSION: GERD and mild gastritis PLAN: The operative findings and pathology report were reviewed with the patient, and the patient has hadthe opportunity to ask questions and have questions [...] which included preparing to see the patient, [id number] patient care, completing clinical documentation, obtaining and/or reviewing separately obtained history, counseling and educating the patient/family/caregiver, independently interpretin g results (not separately reported), and communicating results to the patient/family/caregiver. Cassy López PA-C documented in this encounterZanesville City Hospital06-15-2023 Miscellaneous Notes* Telephone Encounter - Jacquelyn Darnell RN - 09/11/2022 4:12 PM EDT Images from the original note were not included. Kristin Teixeira MD P Endo F20 Nurse Pool I'm abusing salivary cortisol today! Please send her 2 salivary cortisol test kits with mailing supply to mail back to us. Thank you. Eunice No problem at all! :) I have sent the patient 2 salivary cortisol kits with mail back kit and instructions. Thanks, INGRID Carvalho RN [facility] documented in this encounterZanesville City Hospital06-15-2023 History of Present illness Narrative* Kristin Teixeira MD - 09/11/2022 3:21 PM EDT Endocrinology Virtual Visit This is a virtual visit using Yum[employer]ing video visit. It required patient-provider interaction for themedical decision making as documented below. I have communicated my name and active licensure. The patient's identity and physical location wereverified at the time of this visit. Either the patient or their legal electronics parts sales representative has been informed of the risks and benefits of -- and alternatives to -- treatment through a remote evaluation andconsents to proceed with the evaluation remotely. Lakshmi Mcgee is a 26 year old year old female seen for several endocrine concerns, mainly to weight issues and hypothyroid. She was diagnosed with hypothyroidism approximately 3 years ago after delivery her daughter, who isher only child. She was at first placed on ROLL OVER LOADER thyroid. And later on it was switched [...] a month. She just saw her OB. Randill start her on control pills. Her main concern today is weight gain/inability to lose weight. Her weight gain appears to started after the . She was 170s pounds prior to the , and after having the baby she has gained a lot of weight. He is now 243 pounds. She reports significant emotional stress. She does not have much physical activity. She walks 15-20minutes a day with her daughter. She reports [...] costly healthier food choices. She has met supervisor crack off in the past. She has not tried weight loss medication. HISTORY REVIEWED (electronic chart updated): PAST MEDICAL HISTORY Diagnosis Date Depression Hypothyroidism, acquired 07/12/2021 Obesity, Class III, BMI 40-49.9 (morbid obesity) ([facility]) 02/22/2021 Pes cavus 07/12/2021 PAST SURGICAL HISTORY [...] mouth once daily. Take on empty stomach. Forthyroid. pantoprazole DR (PROTONIX) 20 mg tablet Take [...] made to see weight loss specialist. Kristin Teixeira MD Answers submitted by the patient for this visit: Endocrine Review of Systems (Submitted on 09/11/2022) Blood Clots?: No Joint Pain or Stiffness: Yes documented in this encounterZanesville City Hospital06-09-2023 Miscellaneous Notes* Telephone Encounter - Gerardo Ríos LPN - 09/05/2022 3:51 PM EDT Patient called in with concerns since 11am this morning of a shocking feeling through her body and numbness in her arms and fingers, states is happening every 30 seconds to a minute. Patient is afebrile and is feeling nauseated. Patient had a EGD done yesterday 09/04/[address] Carlisle at [place]. Advised patient to go to ER. Patient voiced understanding and agreement. Gerardo Ríos LPN documented in this encounterZanesville City Hospital06-08-2023 NoteHNO ID: [id number] Author: Rossy Campbell RN Service: Nursing Author Type: Registered Nurse Type: Nursing Progress Note Filed: 09/04/2022 12:44 PM Note Text: Other: Patient ready to be discharged.[facility]06-07-2023 Miscellaneous Notes* Telephone Encounter - Shalonda Kilgore LPN - 09/03/2022 9:48 AM EDT Amara from [place] [facility] asking for thyroid lab results & any breast imaging results. Pt has an appt with them today. Records faxed to [phone]. Shalonda Kilgore LPN documented in this encounterZanesville City Hospital06-01-2023 Nurse Note* Jesus Osman RN - 08/28/2022 11:42 AM EDT Images from the original note were not included. Pre-Procedure Checklist Lakshmi Mcgee [phone] (home) [phone] (work) 1995 26 year old Body mass index is 46.45 kg/m . Allergies: Azithromycin GI Upset Megestrol Unknown Procedure: EGD Date of Procedure: 08/29/2022 Smoke: No Alcohol: No Street Drugs: No Diabetic: No Insulin: No Problems with Anesthesia (Self or Family?) No Ground Systems Engineer: Lou Saw elect equip maint eng in the last 6 months? Yes Recent [...] that she is almost always short of breath. Pt notified that anesthesia will likely want a cardiac clearance. Pt verbalizes understanding. documented in this encounterZanesville City Hospital04-24-2023 History of Present illness Narrative* Rene Doherty MD - 07/21/2022 3:04 PM EDT Patient presents with: Follow Up HPI: Patient [...] mostly is on her back. No fingerweb involvement.No one at home with a similar rash. [...] mouth once daily. Take on empty stomach. Forthyroid. pantoprazole DR (PROTONIX) 20 mg tablet Take [...] [place]EN Rene Doherty MD documented in this encounterZanesville City Hospital04-24-2023 History of Present illness Narrative* Anushka Tavarez, PT - 07/21/2022 1:37 PM EDT Episode Visit Count: 1 Therapist That Will Accept/Oversee The Plan Of Care: Anushka Tavarez Start of Care Date: 07/21/22 Onset Date: 06/20/22 (a little over a month now) Plan of Care Certification Date: 07/21/22 Next Certification Due Date: 10/20/22 Patient Identified by Name and Date of : Yes REHABILITATION AND SPORTS THERAPY PHYSICAL THERAPY EVALUATION PLAN OF CARE: Assessment: Lakshmi Mcgee presents with diagnosis of swelling of both hands, secondary lymphedema,and leg swelling that interferes with nothing, stair [...] / doffing compression garment and proper wearing scheduleand care of garment Patient / family independent with home exercise program Patient Goals: Reduce the swelling and pain. Improve painfree function. Planned Interventions, Frequency, and Duration: Current Frequency: 1 visit Duration: 12 weeks Total Number of Visits Planned: 1 Planned Treatment Interventions: Therapeutic exercise (79818), Manual therapy (73861), Self-nursing home management (46787), Patient/Family/Caregiver Education PLAN FOR NEXT VISIT: Pt [...] a week later noticed her hands were swellingup as well. Usually worse in the evening, especially around the ankles. Can improve if lies in recliner and elevates feet, but then when back on feet about anhour later will notice swelling up again.Pt states she was started on a water [...] PT Treatment Interventions: Therapeutic Exercise, Manual Therapy, Self-Mcc Management Evaluation Therapeutic Exercise: 1: *Instruction in [...] and visual cuing. Patient education as noted. Self-Mcc Management: 1: Educated pt in compression garments, [...] 50 Anushka Tavarez PT documented in this encounterZanesville City Hospital04-11-2023 History of Present illness Narrative* Anushka Perez Pss - 07/08/2022 12:53 PM EDT POPULATION HEALTH NAVIGATION OUTREACH Action/FYI Patient Outreach: Spoke with patient to schedule in RST. Pt scheduled RST Consult. Patient Identified by Name and : YES, via phone Outreach Outcome/Action Spoke to patient / parent / legal guardian: Patient scheduled Did you use a PCP flex slot to schedule this appointment? No Reason for Outreach Care Gap or Scheduling/Wellness visits Payer: Payor: [facility] MEDICAID / Plan: [facility] MEDICAID / Product Type: Medicaid / Care Gap Reviewed:: Specialty Scheduling Reminder: Reminder note to check Health Maintenance for items below Health Maintenance items due: COVID-19 VACCINE(1) Never done DTAP,TDAP,TD(7 - Td or Tdap) due on 07/25/2017 Navigation Signature: Anushka Mcgrath July 08, 2022 12:54 PM documented in this encounterZanesville City Hospital03-29-2023 History of Present illness Narrative* Mary Carlisle MD - 06/25/2022 3:11 PM EDT HISTORY AND PHYSICAL Lakshmi Mcgee 1995 REFERRING [...] She also states that her throat feels swollen. She also points to pain in the LUQ of her abdomen and states that she notes swelling in this area. She was seen in the ED [facility] and prescribed prilosec which she has not [...] mouth once daily. Take on empty stomach. Forthyroid. pantoprazole DR (PROTONIX) 20 mg tablet Take [...] entered by the nurse and reviewed by me Nursing Notes: Letty Noriega RN 06/24/2022 2:25 [...] nourished, well hydrated in no acute distress. Thepatient is oriented to time, place, and person. VITALS: Blood pressure 118/70, pulse 120, temperature 36.5 C (97.7 F), height 149.9 cm (4' 11), weight 109.8 kg (242 lb), last menstrual [...] such as liver/spleen, perforation of the GI tract,inability to complete the procedure, complications of anesthesia, etc. - the patient understands. The patient wishes to proceed. With regard to enlarged axillary lymph nodes, the most recent radiological study reveals that theseare probably reactive. Given the patient's skin condition, I would agree. I have offered referral to a nuclear supervising operator, patient defers this. I have answered all [...] be scheduled for EGD, possible biopsies at [facility]. I spent a total of 31 minutes on the date of the service which included preparing to see the patient with review of any pertinent laboratory studies/radiological imaging/medical records, [id number] care, obtaining oral medical history from the patient in this encounter, performing a medically appropriate examination, counseling and educating the patient/family/caregiver, and ordering and/or scheduling of medications/tests/procedures, and completing appropriate medical documentation. Mary Carlisle MD documented in this encounterZanesville City Hospital03-29-2023 Miscellaneous Notes* Telephone Encounter - Claudia Jimenes LPN - 06/25/2022 12:10 PM EDT Spoke with pt and information listed below given. Pt verbalizes understanding. Claudia Jimenes LPN * Telephone Encounter - Mary Corey LPN - 06/25/2022 8:16 AM EDT Left message to return call g. * Telephone Encounter - Rene Doherty MD - 06/24/2022 5:26 PM EDT Utltrasounds are ok. Shows the lymph nodes may be viral. Recheck left breast us in three months documented in this encounterZanesville City Hospital03-28-2023 Miscellaneous Notes* Telephone Encounter - Helen Sharma - 06/24/2022 2:53 PM EDT Patient was seen by Dr. Carlisle in general surgery today and was not told to cancel the diagnostic mammogram. * Telephone Encounter - Yudelka Diaz Ma - 06/24/2022 2:25 PM EDT Left message for patient to return call. Yudelka Diaz Ma * Telephone Encounter - Rene Doherty MD - 06/24/2022 12:33 PM EDT Looks like they did us. Won't need mammogram unless surgery feels it is necessary. Still follow up as I mentioned below * Telephone Encounter - Shalonda Kilgore LPN - 06/24/2022 9:19 AM EDT Pt notified of results & message from provider. Pt has a FU with pcp 07/21/22 but her mammogram isn't until 07/29/22, do you want to wait until after mgm to see her? Shalonda Kilgore LPN * Telephone Encounter - Rene Doherty MD - 06/24/2022 9:09 AM EDT Inflammatory markers continue to be up. Keep follow up with surgery for the lymph node enlargement and breast ultrasounds. Keep follow up with rheum. Follow up with me in a few weeks to put it together and see if we need to do anything more depending on these evaluations. documented in this encounterZanesville City Hospital03-28-2023 Nurse Note* Letty Noriega RN - 06/24/2022 2:23 PM EDT REVIEW OF SYSTEMS: General: The patient denies [...] None Letty Noriega RN documented in this encounterZanesville City Hospital03-28-2023 History of Present illness Narrative* Anju Reed, RADHAVT - 06/24/2022 11:00 AM EDT Radiology Service Progress Note PATIENT NAME: Lakshmi Mcgee DATE OF SERVICE: June 24, 2022 TIME: 2:15 PM PATIENT IDENTITY VERIFICATION COMPLETED USING TWO (2) IDENTIFIERS: Name and Date of confirmedby patient verbally. FALL SCREENING: Has the patient [...] 24, 2022 2:15 PM documented in this encounterZanesville City Hospital03-27-2023 History of Present illness Narrative* Rene Doherty MD - 06/23/2022 11:33 AM EDT Patient presents with: Results: Discuss results of [...] mouth once daily. Take on empty stomach. Forthyroid. furosemide (LASIX) 20 mg tablet Take 1 [...] ICD10: R59.0 - follow with surgery - [facility] - US BREAST LTD LEFT - US BREAST LTD RIGHT - CONSULT TO GENERAL SURGERY 3. Elevated sed rate - ICD9: 790.1, ICD10: R70.0 -recheck labs. Work up as above. 4. CRP elevated - ICD9: 790.95, ICD10: R79.82 5. Pain in axilla, unspecified laterality - ICD9: 729.5, ICD10: M79.62 - [facility] - US BREAST LTD LEFT - US BREAST LTD RIGHT - CONSULT TO GENERAL SURGERY 6. Dermatitis - ICD9: 692.9, ICD10: L30.9 - discussed skin care of rash - follow up if symptoms persist or worsen. - Discussed risks and benefits of new medication with the patient. Advised them to call if any sideeffects or questions. Red flags for re-assessment reviewed [...] PACK Rene Doherty MD documented in this encounterZanesville City Hospital03-21-2023 Miscellaneous Notes* Telephone Encounter - Kaylan Saha LPN - 06/17/2022 10:32 AM EDT Patient returned call and went over notes below from Mary Hardin ROLL OVER LOADER with understanding. Aware rxto pharmacy. * Telephone Encounter - Jennifer Hoffman RN - 06/17/2022 9:29 AM EDT Call placed to patient with no answer. Message left for patient to call back to receive message andask to speak to a triage nurse. Jennifer Hoffman RN * Telephone Encounter - Mary Hardin APRN.CNP - 06/16/2022 7:47 PM EDT I sent an additional 30-day supply of the 40 mg dose of protonix to the pharmacy. Please stay on this dose for an additional month; then decrease to the 20 mg dose. Mary Hardin APRN.CNP * Telephone Encounter - Vladimir Pope LPN - 06/16/2022 6:33 PM EDT TC to pt, she states she still has some burning in her stomach, a little better than what it was, but it's still there. She states she has been taking by levothyroxine and protonix together in the morning. Advised pt it would be better to separate the medication so she will try taking levothyroxinein the morning and protonix at lunch time. She would like to continue with 40mg protonix before decreasing to 20mg. Vladimir Pope LPN * Telephone Encounter - Mary Hardin APRN.CNP - 06/16/2022 6:22 PM EDT Can we please check on patient's stomach symptoms. When she was in, she still had about a week of the 40 mg protonix from the pharmacy. Are her symptoms improving? If not, let us know and we can keepher on this dose a little longer before decreasing to the 20 mg dose. Mary Hardin APRN.CNP documented in this encounterZanesville City Hospital03-20-2023 Miscellaneous Notes* Telephone Encounter - Yudelka Diaz Ma - 06/16/2022 12:53 PM EDT Appt scheduled, pt notified * Telephone Encounter - Rene Doherty MD - 06/16/2022 12:[address] Tompkins let me know the ct scan showed some swollen glands in your arm pits which is of questionable significance. Please set up follow up with me in next week to go over. 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 Initially evaluated by Dr. Tompkins on 06/05/2022 secondary to persistent abnormal chest imaging. She was ill in March2022 with URI. CXR at that time demonstrated peribronchial thickening and small nodules which persisted despite treatment with amoxicillin. No prior history of asthma. Chest CT obtained and unremarkable except for enlarged lymph nodes in axilla. PFTs ordered. Today, patient reports that she was recently seen in the [place] ED on 06/08 for swelling in arms [...] Obesity, Class III, BMI 40-49.9 (morbid obesity) ([facility]) 02/22/2021 Pes cavus 07/12/2021 Allergies: Azithromycin GI Upset Megestrol Unknown sertraline (ZOLOFT) 100 mg tablet^Take 1 tablet by mouth once daily.^Disp: 90 tablet^Rfl: 1 levothyroxine (LEVOXYL) 75 mcg tablet^Take 1 tablet by mouth once daily. Take on empty stomach. Forthyroid.^Disp: 30 tablet^Rfl: [address] (PROTONIX) 20 [...] 86 Resp 16 Ht 149.9 cm (4' 11) Wt 108.4 kg (239 lb) LMP 05/30/2022 (Approximate) SpO2 97% BMI 48.27kg/m Gen: No acute distress. Cooperative with examination. [...] 2.40 FEF50/FIF50 1.01 90-100 FIVC (L) 2.18 HDY83-18 (L/sec) 1.87 2.11 3.25 4.57 57 Time [...] PCP for further evaluation and management. Karolyn Wilson PA-C documented in this encounterZanesville City Hospital03-20-2023 Procedure note* DERIK Barros - 06/16/2022 9:50 AM EDTAssociated Order(s): NITRIC OXIDE, EXHALED RESPIRATORY THERAPY ORAL EXHALED [...] 2022 TIME: 9:50 AM documented in this encounterZanesville City Hospital03-20-2023 History of Present illness Narrative* DERIK Barros - 06/16/2022 9:39 AM EDT PULM FUNCTION SMARTBLOCK: Provider: Evelia Tompkins MD Assisting Tech: DERIK Barros Spirometry: 1 Exhaled Nitric Oxide: 1 documented in this encounterZanesville City Hospital03-17-2023 Instructions* Patient Instructions* Mary Hardin APRN.CNP - 06/13/2022 10:15 AM EDT Stop the [...] know if symptoms return. documented in this encounterZanesville City Hospital03-17-2023 History of Present illness Narrative* Mary Hardin APRN.CNP - 06/13/2022 10:03 AM EDT This is a 26 year old female who presents today with: Patient presents with: ER F/U: [facility] ER follow up- discuss thyroid medication HISTORY OF PRESENT ILLNESS: Lakshmi Mcgee is a 26 year old female. Patient presents with: ER F/U: [facility] ER follow up- discuss thyroid medication Pt presents today for ER follow-up. She presented to the emergency room on 06/07/2022 with complaints of swelling to the upper and lowerextremities and epigastric pain. It was noted in the emergency room regarding her fluctuating TSH levels. Patient was advised to consider changing from [place] Thyroid to levothyroxine. Discussion with patient and reports that she has never been on levothyroxine to her knowledge. She has been on the [place] Thyroid for the last several years prior [...] 1 tablet by mouth twice daily. thyroid (ROLL OVER LOADER THYROID) 15 mg tablet Take 1 tablet by mouth once daily. Take with 30 mg dose for totaldaily dose of 45 mg. cyclobenzaprine (FLEXERIL) 10 mg tablet Take 10 mg by mouth as needed. ROLL OVER LOADER THYROID 30 mg tablet Take 30 mg [...] We will go ahead and stop the [place] Thyroid and change to levothyroxine. She is [...] her to continue after finishing this. She isencouraged to take daily for an additional month. [...] APRN.ALLISON This note was partially generated using Evtron voice recognition system. Note was reviewed for accuracy. There may be minor misspellings or grammar miscues with Evtron voice recognition. documented in this encounterZanesville City Hospital03-14-2023 Miscellaneous Notes* Telephone Encounter - PETRONA Allen - 06/10/2022 3:21 PM EDT Images from the original note [...] a full description of our conversation. Braydon Velasco MS, [facility] Licensed, Certified Genetic Counselor documented in this encounterZanesville City Hospital03-13-2023 History of Present illness Narrative* Carla Sullivan RT(R) - 06/09/2022 8:40 AM EDT Radiology Service Progress Note PATIENT NAME: Lakshmi Mcgee DATE OF SERVICE: June 09, 2022 TIME: 3:45 PM PATIENT IDENTITY VERIFICATION COMPLETED USING TWO (2) IDENTIFIERS: Name and Date of confirmedby patient verbally. FALL SCREENING: Has the patient [...] 09, 2022 3:45 PM documented in this encounterZanesville City Hospital03-11-[address] Patterson [facility] June 07, 2022 11:52pm Note Date/Time June 07, 2022 11: 41pm [facility] Medical Records Department [address] [place] [address] Emergency Department Summary 06/07/22 MR#: [id number] Acct: [id number] Name: LAKSHMI MCGEE ESVIN Rep #:[id number] : 1995 26 From: Karlos Patterson MD PCP: Dr. Rene Doherty MD Status:REG E R Location: ED HPI History of Present Illness Chief Complaint: Edema Detail of Chief Complaint: Patient presents because of swelling to upper and lower extremity and epiga Informant: patient Onset/Context/Timing Onset: Weeks Context: Sudden Onset Timing: Intermittent Quality: Edema and pain Location: Upper and lower extremity and epigastric area Current Severity: Moderate ( with regards to the epigastric pain) Maximum Severity: Moderate Worsened by: Palpation possibly food Relieved by: Nothing Associated Symptoms Associated Symptoms: Nausea Narrative Narrative: Patient is a 26-year-old morbidly obese woman who is undergoing work-up for her edema, weight gain. Patient is on pork thyroid tablets. Her TSH May 01 waswithin normal range. Repeat 1 week ago was elevated at 9.64. Patient's physician did a significant rheumatologic work-up with no abnormalities noted other than an elevated ESR and sed rate. There is also inflammatory changes noted on 2 view chest x- ray. She has been seen by pulmonology. A CT of the chest was ordered to be done as an outpatient. There is no family history of autoimmune disorder. Considered in the differential is sarcoidosis. Patient denies fever, chills night sweats. Patient does report arthralgias. She denies headache, visual, ocular auditory symptoms. She denies change in voice. She denies cardiac or respiratory symptoms. She denies hematemesis, melena hematochezia. She denies food intolerance. She denies urologic symptoms. She denies vaginal bleeding. She is on control pills. She is also on iron. Prior similar symptoms: Yes Recent Illness/Hospitalization: Yes [facility] Medical History Anxiety and depression Chest pain Hypothyroid Obesity, Class III, BMI 40-49.9 (morbid obesity) Pes cavus Home Medications sertraline 100 mg tablet 100 mg PO DAILY depression 01/03/18 [History Last Taken 10/30/19 21:00] cholecalciferol (vitamin D3) 25 mcg (1,000 unit) tablet 2,000 unit PO DAILY vitamin 04/07/19 [History Last Taken 10/30/19 21:00] docusate sodium 100 mg capsule 100 mg PO BID PRN PRN Constipation #60 caps 11/01/19 [Rx Last Taken Unknown] thyroid (pork) 30 mg tablet (ROLL OVER LOADER Thyroid) 30 mg PO DAILY 02/09/21 [History Last Taken Unknown] cyclobenzaprine 10 mg tablet 10 mg PO BID PRN muscle spasm #10 tabs 11/24/21 [Rx Last Taken Unknown] metoprolol tartrate 25 mg tablet 25 mg PO BID #14 tabs 12/06/21 [Rx Last Taken Unknown] ferrous sulfate 325 mg (65 mg iron) tablet (FeroSul) 325 mg PO BID 01/24/22 [History Last Taken Unknown] norgestimate 0.25 mg-ethinyl estradiol 35 mcg tablet 1 tab PO DAILY 01/24/22 [History Last Taken Unknown] thyroid (pork) 15 mg tablet (Harwood Thyroid) 15 mg PO DAILY 01/24/22 [History Last Taken Unknown] pantoprazole 40 mg tablet,delayed release (Protonix) 40 mg PO DAILY #14 tabs 06/07/22 [Rx Last Taken Unknown] Allergy/AdvReac Type Severity Reaction Status Date / Time megestrol Allergy shortness Verified 01/29/22 14:28 of breath, hives azithromycin AdvReac Intermediate Upset Verified 01/29/22 14:28 Stomach Family History Grandmother Cancer Surgical History H/O section Hx of laparoscopy Hx of ovarian cyst Social History Smoking Status: Never smoker alcohol intake: never substance use type: does not use ROS ROS ED Constitutional Constitutional ED: Reports other Details: 5 pound weight gain ; Denies chills, fever(s), subjective, sweats or weight loss Eyes Eyes: Denies blurry vision, change in vision or diplopia ENT ENT ED: Denies ear pain, rhinorrhea or sore throat Cardiovascular Cardiovascular: Denies chest pain, palpitations or racing heartbeat Respiratory/Chest Respiratory/Chest: Denies cough, dyspnea or dyspnea on exertion Gastrointestinal Gastrointestinal: Reports abdominal pain and nausea; Denies constipation, diarrhea, melena or vomiting Genitourinary Genitourinary ED: Denies dysuria, hematuria or urinary frequency Musculoskeletal Musculoskeletal: Denies arthralgias, back pain, myalgias or neck pain Integumentary Denies Abrasions or rash Neurologic Neurologic: Denies headache(s), paresthesias or weakness Psychiatric Psychiatric: Denies anxiety, depression, suicidal ideation or suicidal thoughts Endocrine Endocrinology: Denies cold intolerance or heat intolerance Hematologic/Lymphatic Hematologic/Lymphatic: Reports systems reviewed and no addt'l complaints, exceptas documented EXAM Physical Exam Const Vital Signs: 06/07/22 22:56 06/07/22 22:55 06/07/22 23:02 Temperature 97.2 F L 97.2 F L Temperature Source Temporal Temporal Pulse Rate 101 H 101 H Respiratory Rate 18 16 Respiratory Effort Short of Breath Respiratory Pattern Normal Blood Pressure 131/88 H 131/88 H Blood Pressure Mean 102 102 Positive well nourished, well developed and obese General Appearance ED: well developed, NAD and pallor; Negative for cyanotic or diaphoretic Nutritional Appearance: obese HEENT Reports moist mucous membranes HEENT Narrative: Head is normocephalic atraumatic. Ears normal. TMs normal. Nares patent. Uvula midline. No erythema or exudate of the posterior pharynx. Eyes PERRL and EOMs intact bilaterally General Eye ED: Negative for pale conjunctiva or scleral icterus Neck no lymphadenopathy, supple and no JVD Chest Wall inspection of chest normal and palpation of chest normal Resp normal respiratory effort and clear to auscultation bilaterally Cardio regular rate, regular rhythm, S1 normal heart sound, S2 normal heart sound and no murmurs GI normal to inspection, nondistended, normoactive bowel sounds, non-distended and no masses; Negative for non-tender or hepatosplenomegaly Palpation: soft and tender epigastric; Negative for splenomegaly, mass or rebound tenderness present Back/Spine no CVA tenderness Cervical Spine: Negative for cervical spine tenderness Thoracic Spine / Upper Back: Negative for thoracic spinal tenderness Lumbar Spine / Lower Back: Negative for lumbar spinal tenderness Extremity Extremity Narrative: Patient does have slight edema of her lower extremities. This has not improved with diuretic since it is my opinion this is due to her hypothyroidism. Neuro oriented x3, CN's II-XII intact bilaterally and no sensory deficits noted Neuro Narrative: Reflexes are 1+. There is no true delay in the relaxation phase of the ankle reflex. Sensorium / Orientation: alert Psych mental status grossly normal Skin no rashes or lesions noted, no wounds and skin turgor normal General Skin Exam: elasticity normal and pallor; Negative for jaundice MDM MDM MDM Narrative Medical decision making narrative: Patient's had a significant work-up over the past month. Based on her laboratory results I believe her thyroid test, TSH is fluctuating because she anju pork thyroid and not levothyroxine. Absorption is erratic and potency is erratic. This would explain her edema and 5 pound weight gain. Suspect the epigastric pain is due to either gastritis or reflux or esophagitis. She received a GI cocktail. Since she had a significant work-up with no evidence anemic, elevated liver enzymes and normal lipase no other testing was done. History & Record Review Discussion w/independent historian: Patient Additional record(s) reviewed:: Prior outpatient record (Numerous results from the [facility] over the past 1 to 2 months) and Prior labs Rhythm Strip Rhythm Strip: Sinus Rhythm Rate: 99 Ectopy: None Treatment and Re-Evaluation :: Patient was reassessed at 2345. Her abdominal pain has resolved. Will place patient on PPI. She is scheduled for outpatient CT for June 09. Also recommend she speak with Dr. Doherty regarding changing her thyroid medicine from pork thyroid to levothyroxine. Discharge Plan Triage Chief Complaint: Edema ED Provider: Karlos Patterson Dx/Rx/DC Orders Clinical Impression: Hypothyroidism, Obesity, Class III, BMI 40-49.9 (morbid obesity), Tachycardia, Mild peripheral edema, Acute epigastric pain Instructions: ED Hypothyroidism, ED Epigastric Pain Uncertain Cause Prescriptions: New pantoprazole [Protonix] 40 mg tablet,delayed release (DR/EC) 40 mg PO DAILY Qty: 14 0RF No Action norgestimate-ethinyl estradiol 0.25-35 mg-mcg tablet 1 tab PO DAILY ferrous sulfate [FeroSul] 325 mg (65 mg iron) tablet 325 mg PO BID Label Comments: take 1 tablet by mouth twice a day WITH MEALS thyroid (pork) [Harwood Thyroid] 15 mg tablet 15 mg PO DAILY sertraline 100 MG tablet 100 mg PO DAILY cholecalciferol (vitamin D3) 1,000 UNIT tablet 2,000 unit PO DAILY docusate sodium 100 MG capsule 100 mg PO BID PRN PRN (Reason: Constipation) Qty: 60 1RF thyroid (pork) [ROLL OVER LOADER Thyroid] 30 mg tablet 30 mg PO DAILY cyclobenzaprine 10 mg tablet 10 mg PO BID PRN (Reason: muscle spasm) Qty: 10 0RF metoprolol tartrate 25 mg tablet 25 mg PO BID Qty: 14 0RF Primary Care Provider: Rene Doherty Referrals: Rene Doherty MD [Primary Care Provider] - 3-5 Days Activity Restrictions/Additional Instructions: 1. Contact Dr. Doherty regarding your thyroid medication. Your levels may be fluctuating because you are on thyroid pork instead of levothyroxine. 2. Keep scheduled appointment for CAT scan Disposition Disposition: Home, Self Care What to do if you have Problems For any increased pain, shortness of breath, bleeding, nausea or vomiting, chestpain, or any unexpected problems, contact your Primary Care Provider. Call [facility] ([phone]) or report to the closest Emergency Room. Call 911 if necessary. 06/07/22 2352 <Electronically signed by Karlos Patterson MD> Cosigner Signature (if applicable): CC: Dr. Rene Doherty MD ~ Signed [facility] Work Phone: [phone]) 825-575703-09-2023 History of Present illness Narrative* Evelia Tompkins MD - 06/05/2022 8:00 AM EST Images from the original note were not included. . Res[facility] [place] Note Patient name: Lakshmi Mcgee PCP: Rene [...] significant for morbid obesity, depression, CMP (Gene: [id number]: c.3330+2T>G, heterozygous) and hypothyroidism being referred for evaluation of persistent abnormal chest imaging. She states she was ill in March with a upper respiratory infection. Symptoms at that time consisted of rhinorrhea, fever, cough, chest congestion andwheezing. Chest x-ray showed peribronchial thickening and small nodules which persisted despite treatment with amoxicillin. Currently denies any respiratory symptoms. Specifically, no cough, wheezing, chest pain. Some shortness of breath with activity. No prior history of asthma but tends to wheezewhen she is ill with upper respiratory infections. [...] k/uL 3.49 Monocytes % % 4.9 Abs Gila <0.87 k/uL 0.57 Eosinophils % % 1.3 [...] thickening and nodular infiltrates unchanged CT chest [facility] 12/04/21: Reviewed and shows some scattered GGO PAST MEDICAL HISTORY Diagnosis Date Depression Hypothyroidism, acquired 07/12/2021 Obesity, Class III, BMI 40-49.9 (morbid obesity) (HCC) 02/22/2021 Pes cavus 07/12/2021 ALLERGIES Allergen Reactions Azithromycin GI Upset Megestrol Unknown furosemide (LASIX) 20 mg tablet^Take 1 tablet by mouth once daily.^Disp: 30 tablet^Rfl: 1 FEROSUL 325 mg (65 mg iron) tablet^Take 1 tablet by mouth twice daily with meals.^Disp: 180 tablet^Rfl: 1 metoprolol tartrate, short acting, (LOPRESSOR) 50 mg tablet^Take 1 tablet by mouth twice daily.^Disp: 60 tablet^Rfl: 5 thyroid (ROLL OVER LOADER THYROID) 15 mg tablet^Take 1 tablet by mouth once daily. Take with 30 mg dose for totaldaily dose of 45 mg.^Disp: 30 tablet^Rfl: 5 cyclobenzaprine (FLEXERIL) 10 mg tablet^Take 10 mg by mouth as needed.^Disp: ^Rfl: naproxen (NAPROSYN) 500 mg tablet^Take 500 mg by mouth twice daily.^Disp: ^Rfl: ROLL OVER LOADER THYROID 30 mg tablet^Take 30 mg by [...] normal, no suspicious lesions. Multiple papular erythematous roberto carlos back Head: Normocephalic, no masses, lesions, tenderness [...] chest CT -Review of chest CT from [facility] in November showed scattered groundglass opacities -Follow-up CT of the chest 3. Wheezing -Wheezing when ill with upper respiratory infections consistent with asthma -Pulmonary function test and exhaled nitric oxide level -Weight loss advised as she may have EDAC 4. Morbid obesity -Class III obesity, BMI 48 -Weight loss advised Evelia Tompkins MD [facility] [place] documented in this encounterZ[facility]03-[facility]23 Instructions* Patient Instructions* Nilesh Garduno DO - 06/02/2022 3:35 PM EST -- trial of water pill medication called lasix (furosemide) -- skin changes in the feet suggestive for lymphedema _suspect secondary to weight -- no findings of vein disease on skin examination -- echo last year normal for your heart documented in this encounterZanesville [facility]03-06-2023 History of Present illness Narrative* Nilesh Garduno DO - 06/02/2022 2:45 PM EST Images from the original note were not included. [facility] [place] [facility] Department of Cardiovascular Medicine SECTION OF VASCULAR MEDICINE OUTPATIENT VISIT DATE June 02, 2022 OUTPATIENT VISIT TYPE CONSULTATION Consult regarding: hand swelling, ankle swelling Consult requested by: Lucy Van My final recommendations will be communicated back to the requesting physician by way of the sharedmedical record or by letter. Primary care physician: [...] mouth twice daily.^Disp: 60 tablet^Rfl: 5 thyroid (ROLL OVER LOADER THYROID) 15 mg tablet^Take 1 tablet by mouth once daily. Take with 30 mg dose for totaldaily dose of 45 mg.^Disp: 30 tablet^Rfl: 5 cyclobenzaprine (FLEXERIL) 10 mg tablet^Take 10 mg by mouth as needed.^Disp: ^Rfl: naproxen (NAPROSYN) 500 mg tablet^Take 500 mg by mouth twice daily.^Disp: ^Rfl: ROLL OVER LOADER THYROID 30 mg tablet^Take 30 mg by [...] of Depression, Hypothyroidism, acquired (07/12/2021), Obesity, Class III,BMI 40-49.9 (morbid obesity) (HCC) (02/22/2021), and Pes cavus (07/12/2021). Past surgical history: has a past surgical history that includes cyst/mole removal. Family history: family history includes Arrhythmia in her brother and mother; Cancer in her maternal grandmother; Cardiomyopathy in her paternal aunt and paternal great- grandfather; Diabetes in her maternal grandfather; Endometriosis in [...] (98.4 F) (Oral) Ht 149.9 cm (4' 11) Wt 107.5 kg (237 lb) LMP 05/30/2022 [...] Abs Lymph 1.00 - 4.00 k/uL 3.49 Gila% % 4.9 Abs Gila <0.87 k/uL 0.57 Eosin% % 1.3 Abs [...] to lymphedema therapy. Weight loss as able. Nilesh Garduno DO, [facility] Vascular Medicine June 02, 2022 12:53 PM documented in this encounterZanesville City Hospital02-28-2023 Miscellaneous Notes* Telephone Encounter - Brandon Marrero - 05/27/2022 2:48 PM EST PT scheduled for [facility]K US on 06/17/22 at 2:15 pm at [facility]. * Telephone Encounter - Brandon Marrero - 05/27/2022 2:41 PM EST Patient called the MSK US Department back on 05/27/22 at 2:42 pm. Please give this patient a call back to ensure that they receive an appointment. * Telephone Encounter - Brandon Marrero - 05/27/2022 1:40 PM EST Called patient on 05/27/22 at 1:40 pm to schedule their MSK US exam. No answer, left VM, 1st attempt. * Telephone Encounter - JESSIE Guerrero - 05/27/2022 12:56 PM EST Visit Type: MSK SYNx2 Visit Length: 90, 100 OR 120 MINUTES Order Name/Protocol: US HAND/WRIST SYNOVIAL SCREEN RT+LT AND US FOOT/ANKLE SYNOVIAL SCREEN RT+LT Preferred Provider: N/A Comment: N/A Location: ANY FACILITY Slot held: N/A documented in this encounterZanesville City Hospital02-24-2023 History of Present illness Narrative* Renny Viera, RT(R) - 05/23/2022 3:30 PM EST Radiology Service Progress Note PATIENT NAME: Lakshmi Mcgee DATE OF SERVICE: May 23, 2022 TIME: 2:44 PM PATIENT IDENTITY VERIFICATION COMPLETED USING TWO (2) IDENTIFIERS: Name and Date of confirmedby patient verbally. FALL SCREENING: Has the patient had 2 falls in the last year or 1 fall with injury or currently using an Ambulatory Assistive Device (Walker, Cane, Wheelchair, Crutches, etc.)? No PATIENT GENDER DATA: Female. status: : No status: NO. PATIENT RELEVANT IMPLANT DATA REVIEWED: Not Applicable RADIOLOGY DEPARTMENT: General X-ray: Exam(s) Completed: Lower Extremity X- Ray(s): Ankle, Bilateral and Wt. Bearing and Foot, Bilateral and Wt. Bearing Upper Extremity X-Ray(s): Hand, bilateral PERIPHERAL IV DATA: Not applicable SIGNED BY: RT Solo(R) May 23, 2022 2:44 PM documented in this encounterZanesville City Hospital02-24-2023 Instructions* Patient Instructions* Lucy Van MD - 05/23/2022 1:43 PM EST Please complete blood work today on the first floor and x-rays on the second floor. I have ordered -ultrasounds of your hands and feet to discern if there is inflammatory signal in hands/feet -recommend seeing my colleagues in vascular medicine for peripheral edema/anasarca Call [phone] to schedule both of these (ultrasound testing and vascular medicine evaluation) Recommend seeing the lung doctors or completing a CT scan of your chest with your primary care doctor due to your abnormal chest xray Take photos if you notice any swelling of joints/knuckles, rashes, raynaud's phenomenon Recommend seeing elect equip maint eng/architectural administrative assistant physician (/) if worsening issues with your [...] spray, biofreeze, arnica gel documented in this encounterZanesville City Hospital02-24-2023 History of Present illness Narrative* Lucy Van MD - 05/23/2022 1:03 PM EST Images from the original note were [...] metoprolol tartrate (short acting), thyroid, cyclobenzaprine, naproxen, egg worker thyroid, norgestimate 0.25 mg-ethinyl estradiol 35 mcg, [...] - initial rheumatology evaluation. She is from [facility]. Referred to rheumatology for swelling in conjunction [...] started on metoprolol. Has seen [facility]ET Blake in cardiology. Patient recently underwent cardiac stress [...] DVT/PE/&or miscarriages, renal disease, seizures, dry eyes, drymouth x 2 weeks, cervical lymphadenopathy or parotid [...] lb 8 oz) Height: 149.9 cm (4' 11) General: No acute distress. Eye: Pupils are [...] with cardiology regarding her tachycardia (recently started onmetoprolol therapy). Explained to patient that ESR/CRP is difficult to interpret given her advancedBMI >48 (advanced BMI is classically associated with [...] which included preparing to see the patient, [id number] patient care, completing clinical documentation, obtaining and/or reviewing separately obtained history, performing a medically appropriate examination, counseling and educating the pat ient/family/caregiver, ordering medications, tests, or procedures, communicating results to the patient/family/caregiver and care coordination (not separately reported). Lucy Van MD Rheumatology Staff documented in this encounterZanesville City Hospital02-22-2023 Miscellaneous Notes* Telephone Encounter - Jennifer Hoffman RN - 05/21/2022 4:41 PM EST Patient calls and notified of results and providers instructions. Patient verbalizes understanding.Patient aware order is placed and will come in to have completed in 1 month. Jennifer Hoffman RN * Telephone Encounter - Cha Gomez - 05/21/2022 4:17 PM EST Placed call to patient with no answer. No VM to leave message. Try again later. Cha Gomez * Telephone Encounter - Rene Doherty MD - 05/21/2022 4:10 PM EST Chest xray still shows some residual changes. Recheck xray in one month. If changes on xray persist, will need more work up. documented in this encounterZanesville City Hospital02-22-2023 History of Present illness Narrative* Jennifer Alcala, RT(R) - 05/21/2022 11:30 AM EST Radiology Service Progress Note PATIENT NAME: Lakshmi Mcgee DATE OF SERVICE: May 21, 2022 TIME: 11:26 AM PATIENT IDENTITY VERIFICATION COMPLETED USING TWO (2) IDENTIFIERS: Name and Date of confirmedby patient verbally. FALL SCREENING: Has the patient had 2 falls in the last year or 1 fall with injury or currently using an Ambulatory Assistive Device (Walker, Cane, Wheelchair, Crutches, etc.)? No PATIENT GENDER DATA: Female. status: : No status: NO. PATIENT RELEVANT IMPLANT DATA REVIEWED: Not Applicable RADIOLOGY DEPARTMENT: General X-ray: Exam(s) Completed: Chest X-Ray PERIPHERAL IV DATA: Not applicable SIGNED BY: RT Xochilt(R) May 21, 2022 11:26 AM documented in this encounterZanesville City Hospital02-22-2023 History of Present illness Narrative* Rene Doherty MD - 05/21/2022 10:44 AM EST Patient presents with: Follow Up HPI: Patient [...] 1 tablet by mouth twice daily. thyroid (ROLL OVER LOADER THYROID) 15 mg tablet Take 1 tablet by mouth once daily. Take with 30 mg dose for totaldaily dose of 45 mg. cyclobenzaprine (FLEXERIL) 10 mg tablet Take 10 mg by mouth as needed. naproxen (NAPROSYN) 500 mg tablet Take 500 mg by mouth twice daily. ROLL OVER LOADER THYROID 30 mg tablet Take 30 mg [...] 95/65 Pulse 83 Ht 149.9 cm (4' 11) Wt 108 kg (238 lb) LMP 03/10/2022 [...] issues. Rene Doherty MD documented in this encounterZanesville City Hospital02-21-2023 Miscellaneous Notes* Telephone Encounter - Braydon Velasco [facility] - 05/20/2022 10:07 AM EST Images from the original note were not included. Ms. Lakshmi Mcgee e-mailed me photos of each individual page of her sister's whole exome sequencing report through [facility] [employer]. 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 [...] draw placed. She has an appointment in [place] tomorrow and will have her blood drawn then. Results expected in approximately 3 weeks. She will be contacted by telephone with results. Braydon Velasco MS, [facility] Licensed, Certified Genetic Counselor documented in this encounterZanesville City Hospital02-20-2023 Nurse Note* Caitlin Thompson RN - 05/19/2022 10:32 AM EST Pt here for stress test. When placing EKG leads on pt, noticed several sores on bilateral breasts and in between skin fold. Breast sores were large and scabbed over. No drainage noted. When asked, Ptstated they were from a rash that keeps appearing and she has seen a provider about it. Encouraged pt to f/u and educated on good hygiene. documented in this encounterZanesville City Hospital02-20-2023 Miscellaneous Notes* Result Encounter Note - Anju Blake APRN.CNP - 05/19/2022 8:00 AM EST Please call patient and notify her of stress testing results. Results were without suggestion of ischemia. Thank you! documented in this encounterZanesville City Hospital02-20-2023 History of Present illness Narrative* Nika Morrison RT(R) - 05/19/2022 7:30 AM EST RADIOLOGY SERVICE PROGRESS NOTE SERVICE DATE: 05/19/2022 [...] creatinine assay has traceable calibration to isotope dilution- mass spectrometry. Refer to KDIGO guidelines for clinical interpretation. In patients with unstable renal function, e.g. those with acute kidney injury, the eGFRmay not accurately reflect actual GFR. eGFR- Date Value Ref Range Status 04/30/2021 >60 Final P.O.C.T. RESULTS: N/A May 19, [address] PERFORMED: No IV SITE: Ambulatory: A peripheral IV was started in the Right antecubital site with a Angio cath: 22 gauge. POST EXAM PIV STATUS: Discontinued PROCEDURE TYPE: NM Stress: 14.9 mCi [id number] was administered IV for [facility] at 07:41 by Nika Morrison. 50 mCi [id number] was administered IV for Stress Imaging at 08:59 by Nika Morrison. ADMINISTRATION TIME: PATIENT DISCHARGED TO: Ambulatory patient, left NM department area. A Diagnostic radioactive procedure has taken place, with no further precautions necessary other than routine body substance precautions. More information regarding radiation safety can be found usingthis link: [email or web address] SIGNATURE: RT Severino(R) PATIENT NAME: Lakshmi Mcgee DATE: May 19, 2022 TIME: 10:00 AM PAGER/CONTACT #: documented in this encounterZanesville City Hospital02-08-2023 History of Present illness Narrative* Rene Doherty MD - 05/07/2022 2:19 PM EST Patient presents with: Cough HPI: Patient presents today for office visit for follow up on chest x-ray results. Chest X-ray showed some changes that indicate may have had an infection in the past that is resolving. Presents today with cough and sore throat X 1 day. Concerns of tightness underneath left breast in ribcage areaduring coughing fit. States sometimes there is a bulge in her ribcage. Refers to it feeling likethere is something in there. Started cough and sore throat. Throat is [...] 1 tablet by mouth twice daily. thyroid (ROLL OVER LOADER THYROID) 15 mg tablet Take 1 tablet by mouth once daily. Take with 30 mg dose for totaldaily dose of 45 mg. cyclobenzaprine (FLEXERIL) 10 mg tablet Take 10 mg by mouth as needed. naproxen (NAPROSYN) 500 mg tablet Take 500 mg by mouth twice daily. ROLL OVER LOADER THYROID 30 mg tablet Take 30 mg [...] Obesity, Class III, BMI 40-49.9 (morbid obesity) ([facility]) 02/22/2021 Pes cavus 07/12/2021 PAST SURGICAL HISTORY [...] C (98.7 F) Ht 149.9 cm (4' 11) Wt 108 kg (238 lb) LMP 03/10/2022 [...] patient. Advised them to call if any sideeffects or questions. Red flags for re-assessment reviewed with patient in detail. Call if symptoms worsen at all or if not better in one to two weeks Reviewed diagnosis and treatment options in detail. Questions were answered. Patient expressed understanding of treatment plan. - AMOXICILLIN 875 MG-POTASSIUM CLAVULANATE 125 MG TABLET Rene Doherty MD documented in this encounterZanesville City Hospital02-07-2023 Miscellaneous Notes* Telephone Encounter - Rene Doherty MD - 05/06/2022 12:50 PM EST Xray had showed what looked like old infection. Likely needs seen by one of us. documented in this encounterZanesville City Hospital02-07-2023 Miscellaneous Notes* Telephone Encounter - Cha Gomez - 05/06/2022 12:47 PM EST Patient informed and verbalized understanding. Sending to schedulers. Cha Gomez * Telephone Encounter - Rene Doherty MD - 05/06/2022 12:24 PM EST Her inflammatory markers are still up. Given her finger and hand swelling and ankle swelling and numbers, would recommend seeing rheumatology documented in this encounterZanesville City Hospital02-06-2023 Miscellaneous Notes* Telephone Encounter - Pilar Donato LPN - 05/05/2022 2:15 PM EST Patient notified and verbalizes understanding. * Telephone Encounter - Rene Doherty MD - 05/05/2022 2:02 PM EST Chest xray shows some changes that indicate she may have had an infection in the past that is resolving. Call if any fever or cough. Recheck xray in two to four weeks. documented in this encounterZanes[facility]02-06-2023 History of Present illness Narrative* Jennifer Alcala RT(R) - 05/05/2022 12:40 PM EST Radiology Service Progress Note PATIENT NAME: Lakshmi Mcgee DATE OF SERVICE: May 05, 2022 TIME: 12:36 PM PATIENT IDENTITY VERIFICATION COMPLETED USING TWO (2) IDENTIFIERS: Name and Date of confirmedby patient verbally. FALL SCREENING: Has the patient had 2 falls in the last year or 1 fall with injury or currently using an Ambulatory Assistive Device (Walker, Cane, Wheelchair, Crutches, etc.)? No PATIENT GENDER DATA: Female. status: : No status: NO. PATIENT RELEVANT IMPLANT DATA REVIEWED: Not Applicable RADIOLOGY DEPARTMENT: General X-ray: Exam(s) Completed: Chest X-Ray PERIPHERAL IV DATA: Not applicable SIGNED BY: RT Xochilt(R) May 05, 2022 12:36 PM documented in this encounterZanesville City Hospital02-06-2023 Miscellaneous Notes* Addendum Note - Rene Doherty MD - 05/05/2022 12:06 PM ESTAddended by: RENE DOHERTY on: 05/05/2022 12:06 PM Modules accepted: Orders documented in this encounterZanesville City Hospital02-06-2023 History of Present illness Narrative* Rene Doherty MD - 05/05/2022 11:31 AM EST Patient presents with: Edema HPI: Patient presents [...] new joint pains. Hands and ankles felt thick. Swelling is around MIP joints and fingers. [...] by mouth twice daily with meals. thyroid (ROLL OVER LOADER THYROID) 15 mg tablet Take 1 tablet by mouth once daily. Take with 30 mg dose for totaldaily dose of 45 mg. metoprolol tartrate, short acting, (LOPRESSOR) 25 mg tablet Take 1 tablet by mouth twice daily. ROLL OVER LOADER THYROID 30 mg tablet Take 30 mg [...] two to three weeks. documented in this encounterZanesville City Hospital12-30-2022 Instructions* Patient Instructions* Chasity Womack PA-C - 03/28/2022 10:47 AM EST See weight loss info. documented in this encounterZanesville City Hospital12-30-2022 History of Present illness Narrative* Chasity Womack PA-C - 03/28/2022 10:20 AM EST 26 year old female with c/o here for follow up Has concerns about a possible hernia under left rib . Something sticks out, slightly tender on palpation. Allergic dermatitis from 01/27/2022 visit following ZIO onitor has improve but no completely resolved but much better Tachycardia Cardiovascular interval hx: 02/24/2022 Cardiology consult Anju Blake THEORETICAL PHYSICIST 01/29/2022 [facility] ER visit palpitations, HR 130 BP 150/90, [...] Hypothyroidism, acquired (primary encounter diagnosis) Current medication: ROLL OVER LOADER thyroid 45mg daily Taking as directed on [...] intermittent solid or soft stool. No black ortarry stools. If yes: Diarrhea? Yes. If yes: [...] Obesity, class iii, bmi 40-49.9 (morbid obesity) ([facility]) Persistent weight gain Mild episode of recurrent [...] Obesity, Class III, BMI 40-49.9 (morbid obesity) ([facility]) 02/22/2021 Pes cavus 07/12/2021 PAST SURGICAL HISTORY Procedure Laterality Date CYST/MOLE REMOVAL ovary Social History Tobacco Use Smoking status: Never Smokeless tobacco: Never Substance Use Topics Alcohol use: Never Drug use: Never ACTIVE PROBLEM LIST Neurodermatitis Prurigo Nodularis Obesity, Class Iii, Bmi 40-49.9 (Morbid Obesity) ([facility]) Depression Pes Cavus Hypothyroidism, Acquired Chest Wall Pain Current Outpatient Medications Medication Sig Dispense Refill thyroid (ROLL OVER LOADER THYROID) 15 mg tablet Take 1 tablet by mouth once daily. Take with 30 mg dose for totaldaily dose of 45 mg. 30 tablet 5 metoprolol tartrate, short acting, (LOPRESSOR) 25 mg tablet Take 1 tablet by mouth twice daily. 60 tablet 5 cyclobenzaprine (FLEXERIL) 10 mg tablet Take 10 mg by mouth as needed. naproxen (NAPROSYN) 500 mg tablet Take 500 mg by mouth twice daily. ROLL OVER LOADER THYROID 30 mg tablet Take 30 mg [...] injection (DEFINITY) INTRAVENOUS DIRECTED PRN Mary Hardin APRN.ALLISON sodium chloride 0.9 % (flush) 10 mL (BD POSIFLUSH) 10 mL INTRAVENOUS DIRECTED PRN Mary Hardin APRN.THEORETICAL PHYSICIST COVID-19 VACCINE(1) Never done PAP TESTING Never [...] or enlarging with strain. I suspect this isrelated to somatic dysfunction as patient also has [...] at bedtime. - continue current dose of ROLL OVER LOADER thyroid 45mg Weight increasing - Behavioral intervention [...] Patient is to let us know via [email or web address] on progress. Chasity Womack PA-C documented in this encounterZanesville City Hospital12-05-2022 Miscellaneous Notes* Telephone Encounter - Griselda Schafer RN - 03/03/2022 4:19 PM EST Indulo, is this something that you would work up or should she see her pcp? Griselda Schafer RN documented in this encounterZanesville City Hospital11-28-2022 Instructions* Patient Instructions* Anju Blake APRN.ALLISON - 02/24/2022 11:30 AM EST Heart Disease in Women Is heart disease a problem for women? Heart disease is the leading cause of of [place] women. More women from heart disease than [...] vessel, which can cause a heart attack orstroke. In the first year after a heart attack, women have an increased risk of . In the first 6 yearsafter a heart attack, they also have a higher risk of a second heart attack. Women are at high riskoften because they are older at the time [...] it. Many women have chest pain or pressure,but sometimes symptoms in women are different from [...] right away if you have these symptoms. Donot drive yourself to the hospital. Immediate emergency [...] you are taking. If you decide you needto make changes in the way you live, you probably won't be able to turn your life around all at once. Try to develop healthy habits that incorporate your lifestyle goals. If you do, you will greatly decrease your chances for developing heart disease. You can get more information from: [place] [facility] Fvllrwxmtrn5-491-ESE-[place]-1 ( )www.heart.org Developed by [employer]. Published by [employer]. Copyright 2014 [employer] and/or one of its subsidiaries. All rights reserved. documented in this encounterZanesville City Hospital11-28-2022 History of Present illness Narrative* Ajnu Blake APRN.CNP - 02/24/2022 11:01 AM EST Images from the original note were not included. [facility] SE[facility]IONAL CARDIOLOGY Cardiology ([facility]) [address] [facility] [id number] OUTPATIENT VISIT February 24, 2022 11:00 AM [...] her hands and feet. She denies syncope andorthopnea. She has been started on metoprolol by her PCP which seems to be helping with heart rate and symptoms. She has completed an echocardiogram and monitor already in work up by per PCP which were unrevealing for significant abnormality, arrhythmia. PAST MEDICAL HISTORY Diagnosis Date Depression Hypothyroidism, acquired 07/12/2021 Obesity, Class III, BMI 40-49.9 (morbid obesity) ([facility]) 02/22/2021 Pes cavus 07/12/2021 PAST SURGICAL HISTORY Procedure Laterality Date CYST/MOLE REMOVAL ovary FAMILY HISTORY Problem Relation Age of Onset Cancer Maternal Grandmother Social History Tobacco Use Smoking status: Never Smokeless tobacco: Never Substance Use Topics Alcohol use: Never Drug use: Never Cardiac Risk Factors: none ALLERGIES Allergen Reactions Azithromycin GI Upset Megestrol Unknown Medications: Current Outpatient Medications Medication Sig Dispense Refill thyroid (ROLL OVER LOADER THYROID) 15 mg tablet Take 1 tablet by mouth once daily. Take with 30 mg dose for totaldaily dose of 45 mg. 30 tablet 5 metoprolol tartrate, short acting, (LOPRESSOR) 25 mg tablet Take 1 tablet by mouth twice daily. 60 tablet 5 cyclobenzaprine (FLEXERIL) 10 mg tablet Take 10 mg by mouth as needed. naproxen (NAPROSYN) 500 mg tablet Take 500 mg by mouth twice daily. ROLL OVER LOADER THYROID 30 mg tablet Take 30 mg [...] injection (DEFINITY) INTRAVENOUS DIRECTED PRN Mary Hardin, BALANCE BRIDGE INSPECTOR.THEORETICAL PHYSICIST sodium chloride 0.9 % (flush) 10 mL (BD POSIFLUSH) 10 mL INTRAVENOUS DIRECTED PRN Mary Hardin APRN.THEORETICAL PHYSICIST Review of Systems Constitutional: Negative for chills, [...] tingling, sensory change, speech change, focal weakness, lossof consciousness, weakness and headaches. Endo/Heme/Allergies: Does not bruise/bleed easily. Psychiatric/Behavioral: Negative for depression, memory loss and suicidal ideas. The patient is notnervous/anxious and does not have insomnia. Physical Examination: [...] 63 bpm, max HR of 159 bpm, andavg HR of 94 bpm -continue metoprolol -recommended conservative measures: stay hydrated, limit stimulants/caffeine, limit stress, routineaerobic exercise. Does not use nicotine -check stress test given other associated symptoms -consider underlying thyroid or rheumatoid influence Obesity -lifestyle modifications -encouraged a heart healthy diet, routine exercise and weight loss Follow up in 6 months. Sooner for abnormal results. Patient to call with any issues or concerns prior to then. Electronically signed by Anju Blake APRN.CNP on February 24, 2022, 11:01 AM documented in this encounterZanesville City Hospital10-28-2022 History of Present illness Narrative* Darvin Valencia, PT - 01/24/2022 2:02 PM EDT Episode Visit Count: 5 Therapist That Will Accept/Oversee The Plan Of Care: Darvin Valencia Start of Care Date: 12/19/21 Onset Date: 11/28/21 Plan of Care Certification Date: 12/19/21 Next Certification Due Date: 02/18/22 [facility] PHYSICAL THERAPY DISCONTINUANCE OF CARE PLAN OF CARE UPDATE: Assessment: Lakshmi Mcgee is discontinued from Physical Therapy services [...] of Care: created on 12/19/21 through 02/18/22 Coal in home exercise program. Met Patient will decrease pain rating by 2 points to meet minimal clinical important difference for numeric pain rating scale. Met Perform recreational activities with decreased report of symptoms/pain in 8 weeks. Met Sleep through the night without pain. Met Improve postural awareness. Met Patient Goals: Decrease pain, return to lifting and playing with kids as usual, sleep through nightwithout pain SUBJECTIVE: Patient Reason for Visit: Pt [...] 25 Darvin Valencia PT documented in this encounterZanesville City Hospital10-19-2022 Miscellaneous Notes* Telephone Encounter - Vladimir Pope LPN - 01/15/2022 10:32 AM EDT Pt notified. Vladimir Pope LPN * Telephone Encounter - Rene Doherty MD - 01/14/2022 6:00 PM EDT Let her know monitor was ok. Average heart rate is in the low 90's which is considered a normal rhythm documented in this encounterZanesville City Hospital09-27-2022 History of Present illness Narrative* Darvin Valencia PT - 12/24/2021 1:51 PM EDT Episode Visit Count: 2 Therapist That Will [...] 34 Total Treatment Time Minutes (timed/untimed): 39 Chloé Narvaez, ASSISTANT DIRECTOR OF RESIDENCE LIFE Darvin Valencia PT documented in this encounterZanesville City Hospital09-23-2022 Miscellaneous Notes* Telephone Encounter - Mary Hardin APRN.CNP - 12/20/2021 10:22 AM EDT This encounter was opened in error. @[email or web address]@ documented in this encounterZanesville City Hospital09-22-2022 History of Present illness Narrative* Darvin Valencia PT - 12/19/2021 5:32 PM EDT Episode Visit Count: 1 Therapist That Will [...] tissue tenderness. Prognosis for therapy is Fair dueto: clinical presentation;multiple co- morbidities;Prognosis may be improved by within-session changes. She will benefit from skilled therapy services to meet the goals established for this plan of care as noted below. Goals for Episode of Care: created on 12/19/21 through 02/18/22 Coal in home exercise program. Patient will decrease pain rating by 2 points to meet minimal clinical important difference for numeric pain rating scale. Perform recreational activities with decreased report of symptoms/pain in 8 weeks. Sleep through the night without pain. Improve postural awareness. Patient Goals: Decrease pain, return to lifting and playing with kids as usual, sleep through nightwithout pain Planned Interventions, Frequency, and Duration: Current Frequency: 1x/week Duration: 8 weeks Total Number of Visits Planned: 8 Planned Treatment Interventions: Therapeutic exercise (84901);Neuromuscular re- education (47761);Manual therapy (52549);Therapeutic activities (29643);Self- nursing home management (57521) PLAN FOR NEXT VISIT: Muscle energy techniques [...] playing with kids as usual, sleep through nightwithout pain Functional Limitations: heavy exertion;lifting;physical activities;recreational activities;sleeping;reaching [...] Time Minutes (timed/untimed): 45 Juan Jose Dunbar, SPT Darvin Valencia PT Supervising therapist was present and guided the care of the patient for the entire session on thisdate. All documentation was reviewed and agreed upon. Darvin Valencia PT documented in this encounterZanesville City Hospital09-22-2022 History of Past illness Narrative* Problem Noted Date Resolved Date Chest wall pain 12/19/2021 05/21/2022 documented as of this encounter (statuses as of 05/21/2022) [facility] of Past illness Narrative* Problem Noted Date Resolved Date Chest wall pain 12/19/2021 05/21/2022 documented as of this encounter (statuses as of 05/22/2022) [address]22-2022 History of Past illness Narrative* Problem Noted Date Resolved Date Chest wall pain 12/19/2021 05/21/2022 documented as of this encounter (statuses as of 05/24/2022) [address]22-2022 History of Past illness Narrative* Problem Noted Date Resolved Date Chest wall pain 12/19/2021 05/21/2022 documented as of this encounter (statuses as of 05/24/2022) [address]22-2022 History of Past illness Narrative* Problem Noted Date Resolved Date Chest wall pain 12/19/2021 05/21/2022 documented as of this encounter (statuses as of 05/27/2022) [address]22-2022 History of Past illness Narrative* Problem Noted Date Resolved Date Chest wall pain 12/19/2021 05/21/2022 documented as of this encounter (statuses as of 06/03/2022) [address]22-2022 History of Past illness Narrative* Problem Noted Date Resolved Date Chest wall pain 12/19/2021 05/21/2022 documented as of this encounter (statuses as of 06/05/2022) [address]22-2022 History of Past illness Narrative* Problem Noted Date Resolved Date Chest wall pain 12/19/2021 05/21/2022 documented as of this encounter (statuses as of 06/10/2022) [address]22-2022 History of Past illness Narrative* Problem Noted Date Resolved Date Chest wall pain 12/19/2021 05/21/2022 documented as of this encounter (statuses as of 06/13/2022) [address]22-2022 History of Past illness Narrative* Problem Noted Date Resolved Date Chest wall pain 12/19/2021 05/21/2022 documented as of this encounter (statuses as of 06/16/2022) [address]22-2022 History of Past illness Narrative* Problem Noted Date Resolved Date Chest wall pain 12/19/2021 05/21/2022 documented as of this encounter (statuses as of 06/16/2022) [address]22-2022 History of Past illness Narrative* Problem Noted Date Resolved Date Chest wall pain 12/19/2021 05/21/2022 documented as of this encounter (statuses as of 06/16/2022) [address]22-2022 History of Past illness Narrative* Problem Noted Date Resolved Date Chest wall pain 12/19/2021 05/21/2022 documented as of this encounter (statuses as of 06/17/2022) [address]22-2022 History of Past illness Narrative* Problem Noted Date Resolved Date Chest wall pain 12/19/2021 05/21/2022 documented as of this encounter (statuses as of 06/18/2022) [address]22-2022 History of Past illness Narrative* Problem Noted Date Resolved Date Chest wall pain 12/19/2021 05/21/2022 documented as of this encounter (statuses as of 06/23/2022) [address]22-2022 History of Past illness Narrative* Problem Noted Date Resolved Date Chest wall pain 12/19/2021 05/21/2022 documented as of this encounter (statuses as of 06/24/2022) [address]22-2022 History of Past illness Narrative* Problem Noted Date Resolved Date Chest wall pain 12/19/2021 05/21/2022 documented as of this encounter (statuses as of 06/25/2022) [address]22-2022 History of Past illness Narrative* Problem Noted Date Resolved Date Chest wall pain 12/19/2021 05/21/2022 documented as of this encounter (statuses as of 06/26/2022) [address]22-2022 History of Past illness Narrative* Problem Noted Date Resolved Date Chest wall pain 12/19/2021 05/21/2022 documented as of this encounter (statuses as of 07/09/2022) [address]22-2022 History of Past illness Narrative* Problem Noted Date Resolved Date Chest wall pain 12/19/2021 05/21/2022 documented as of this encounter (statuses as of 07/22/2022) [address]22-2022 History of Past illness Narrative* Problem Noted Date Resolved Date Chest wall pain 12/19/2021 05/21/2022 documented as of this encounter (statuses as of 07/22/2022) [address]22-2022 History of Past illness Narrative* Problem Noted Date Resolved Date Chest wall pain 12/19/2021 05/21/2022 documented as of this encounter (statuses as of 08/28/2022) [address]22-2022 History of Past illness Narrative* Problem Noted Date Resolved Date Chest wall pain 12/19/2021 05/21/2022 documented as of this encounter (statuses as of 09/03/2022) [address]22-2022 History of Past illness Narrative* Problem Noted Date Resolved Date Chest wall pain 12/19/2021 05/21/2022 documented as of this encounter (statuses as of 09/12/2022) [address]22-2022 History of Past illness Narrative* Problem Noted Date Resolved Date Chest wall pain 12/19/2021 05/21/2022 documented as of this encounter (statuses as of 09/12/2022) [address]22-2022 History of Past illness Narrative* Problem Noted Date Resolved Date Chest wall pain 12/19/2021 05/21/2022 documented as of this encounter (statuses as of 09/22/2022) [address]22-2022 History of Past illness Narrative* Problem Noted Date Diagnosed Date Resolved Date Chest wall pain 12/19/2021 05/21/2022 documented as of this encounter (statuses as of 10/14/2022) [address]22-2022 History of Past illness Narrative* Problem Noted Date Diagnosed Date Resolved Date Chest wall pain 12/19/2021 05/21/2022 documented as of this encounter (statuses as of 10/17/2022) [address]22-2022 History of Past illness Narrative* Problem Noted Date Diagnosed Date Resolved Date Chest wall pain 12/19/2021 05/21/2022 documented as of this encounter (statuses as of 11/05/2022) [address]22-2022 History of Past illness Narrative* Problem Noted Date Diagnosed Date Resolved Date Chest wall pain 12/19/2021 05/21/2022 documented as of this encounter (statuses as of 11/10/2022) [address]22-2022 History of Past illness Narrative* Problem Noted Date Diagnosed Date Resolved Date Chest wall pain 12/19/2021 05/21/2022 documented as of this encounter (statuses as of 01/03/2023) [address]22-2022 History of Past illness Narrative* Problem Noted Date Diagnosed Date Resolved Date Chest wall pain 12/19/2021 05/21/2022 documented as of this encounter (statuses as of 01/12/2023) [address]22-2022 History of Past illness Narrative* Problem Noted Date Diagnosed Date Resolved Date Chest wall pain 12/19/2021 05/21/2022 documented as of this encounter (statuses as of 01/31/2023) [address]22-2022 History of Past illness Narrative* Problem Noted Date Diagnosed Date Resolved Date Chest wall pain 12/19/2021 05/21/2022 documented as of this encounter (statuses as of 01/31/2023) [address]22-2022 History of Past illness Narrative* Problem Noted Date Diagnosed Date Resolved Date Chest wall pain 12/19/2021 05/21/2022 documented as of this encounter (statuses as of 01/31/2023) [address]22-2022 History of Past illness Narrative* Problem Noted Date Diagnosed Date Resolved Date Chest wall pain 12/19/2021 05/21/2022 documented as of this encounter (statuses as of 01/31/2023) [address]22-2022 History of Past illness Narrative* Problem Noted Date Diagnosed Date Resolved Date Chest wall pain 12/19/2021 05/21/2022 documented as of this encounter (statuses as of 01/31/2023) [address]22-2022 History of Past illness Narrative* Problem Noted Date Diagnosed Date Resolved Date Chest wall pain 12/19/2021 05/21/2022 documented as of this encounter (statuses as of 01/31/2023) [address]22-2022 History of Past illness Narrative* Problem Noted Date Diagnosed Date Resolved Date Chest wall pain 12/19/2021 05/21/2022 documented as of this encounter (statuses as of 05/15/2023) [address]22-2022 History of Past illness Narrative* Problem Noted Date Diagnosed Date Resolved Date Chest wall pain 12/19/2021 05/21/2022 documented as of this encounter (statuses as of 07/14/2023) [facility] Narrative* Problem Noted Date Diagnosed Date Resolved Date Chest wall pain 12/19/2021 05/21/2022 documented as of this encounter (statuses as of 07/14/2023) [facility] of Present illness Narrative* Rene Doherty MD - 12/17/2021 2:00 PM EDT Patient presents with: ER F/U HPI: Patient presents today for office visit for ER F/U from [facility] on 12/13/21 for racing heart. A-fibruled out. Tachycardia. Referred to Cardio. Has follow up already scheduled. After last ov. D dimer was up. Cta in [facility] was negative. Just showed fatty liver. Was placed on medrol dose darya. Apparently has also noted fast heart rates and it was going up all day. Hr was in the 130's Ekg was negative for a fib. They thought it was a tachycardia. They referred her to see [facility]. They did not do any [...] ongoing for past two weeks. Seen in [facility] on 11/24 and 11/25. See scanned [...] Abs Lymph 1.00 - 4.00 k/uL 2.53 Gila% % 3.8 Abs Gila <0.87 k/uL 0.45 Eosin% % 1.5 Abs [...] Abs Lymph 1.00 - 4.00 k/uL 2.54 Gila% % 3.6 Abs Gila <0.87 k/uL 0.48 Eosin% % 1.8 Abs [...] MEDICATIONS: Current Outpatient Medications Medication Sig thyroid (ROLL OVER LOADER THYROID) 15 mg tablet Take 1 tablet by mouth once daily. Take with 30 mg dose for totaldaily dose of 45 mg. metoprolol tartrate, short acting, (LOPRESSOR) 25 mg tablet Take 1 tablet by mouth twice daily. cyclobenzaprine (FLEXERIL) 10 mg tablet Take 10 mg by mouth as needed. naproxen (NAPROSYN) 500 mg tablet Take 500 mg by mouth twice daily. ROLL OVER LOADER THYROID 30 mg tablet Take 30 mg [...] 110/76 Pulse 89 Ht 149.9 cm (4' 11) Wt 104.8 kg (231 lb) SpO2 98% [...] masses, lesions, tenderness or abnormalities Chest wall. glass cut off tender on right side Lungs: Lungs clear [...] TELEMETRY) Rene Doherty MD documented in this encounterZanesville City Hospital09-20-2022 Miscellaneous Notes* Telephone Encounter - Rene [...] Any more chest discomfort? documented in this encounterZanesville City Hospital09-16-2022 Miscellaneous Notes* Telephone Encounter - Constanza Rivas LPN - 12/13/2021 11:53 AM EDT Last office visit: 12/04/21 Next appointment scheduled: 12/17/21 Last labs: 10/28/21 Patient phones requesting refills as follows: Requested Prescriptions Pending Prescriptions Disp Refills thyroid (ROLL OVER LOADER THYROID) 15 mg tablet 30 tablet 5 Sig: Take 1 tablet by mouth once daily. Take with 30 mg dose for total daily dose of 45 mg. Please review and advise. Constanza Rivas LPN documented in this encounterZanesville City Hospital09-08-2022 Miscellaneous Notes* Telephone Encounter - Pilar [...] or s/s of infection. documented in this encounterZanesville City Hospital09-08-2022 Miscellaneous Notes* Telephone Encounter - Vladimir Pope LPN - 12/05/2021 8:28 AM EDT ER report printed. Vladimir Pope LPN * Telephone Encounter - Rene Doherty MD - 12/05/2021 8:06 AM EDT Can we pull ER notes and see what occurred for me. Thank you * Telephone Encounter - Rene Doherty MD - 12/04/2021 4:55 PM EDT See TE documented in this encounterZanesville City Hospital09-07-2022 Miscellaneous Notes* Telephone Encounter - Shavonne Roy RN - 12/04/2021 4:23 PM EDT Spoke with patient. Given message from provider's office. Patient verbalizes understanding. She states she will go to [facility] ER now. Shavonne Roy RN * Telephone Encounter - Pilar Donato LPN - 12/04/2021 4:15 PM EDT Left message for patient to call office and speak with nurse. Will also send a YumZing message. * Telephone Encounter - Rene Doherty MD - 12/04/2021 4:09 PM EDT D dimer is really high. Given her pain, to Er of choice to get looked at and fax lab result to them. Can also fax note. * Telephone Encounter - Shavonne Roy RN - 12/04/2021 4:00 PM EDT Ronal @ [facility] Lab calling with critical lab value. D dimer result = 4.14 microgram/ml. Shavonne Roy RN documented in this encounterZanesville City Hospital09-07-2022 History of Present illness Narrative* Rene [...] ongoing for past two weeks. Seen in [place] ER on 11/24 and 11/25. See scanned [...] 500 mg by mouth twice daily. thyroid (ROLL OVER LOADER THYROID) 15 mg tablet Take 1 tablet by mouth once daily. Take with 30 mg dose for totaldaily dose of 45 mg. ROLL OVER LOADER THYROID 30 mg tablet Take 30 mg [...] 110/72 Pulse 111 Ht 149.9 cm (4' 11) Wt 105.9 kg (233 lb 6.4 oz) [...] SED RATE PAMELA Doherty documented in this encounterZanesville City Hospital08-22-2022 Instructions* Patient Instructions* Leslie Perez RD [...] eating comfortable, not full documented in this encounterZanesville City Hospital08-22-2022 History of Present illness Narrative* Leslie [...] eating 5. Continue food records - try Message Bus for tracking, aim for 1500 calories, do [...] Readings: Date: Ht: 11/18/2021 149.9 cm (4' 11) Current weight: Last 1 Encounter Wt Readings: [...] 2021 TIME: 2:33 PM documented in this encounterZanesville City Hospital08-20-2022 History of Present illness Narrative* Leonarda Blakely APRN.[facility] - 11/16/2021 12:24 PM EDT Images [...] Obesity, Class III, BMI 40-49.9 (morbid obesity) ([facility]) 02/22/2021 Pes cavus 07/12/2021 PAST SURGICAL HISTORY Procedure Laterality Date CYST/MOLE REMOVAL ovary ALLERGIES Azithromycin and Megestrol MEDICATIONS thyroid (ROLL OVER LOADER THYROID) 15 mg tablet^Take 1 tablet by mouth once daily. Take with 30 mg dose for totaldaily dose of 45 mg.^Disp: 30 tablet^Rfl: 5 ROLL OVER LOADER THYROID 30 mg tablet^Take 30 mg by [...] illness Leonarda Blakely APRN.CNP documented in this encounterZanesville City Hospital08-20-2022 Instructions* Patient Instructions* Leonarda Blakely APRN.CNP [...] redness, drainage or pus). documented in this encounterZanesville City Hospital08-03-2022 Miscellaneous Notes* Telephone Encounter - Evelia [...] weeks. The orders are in. Mary Hardin APRN.[facility] * Telephone Encounter - Nena Gurrola LPN [...] how shewould like to proceed. Mary Hardin APRN.[place] documented in this encounterZanesville City Hospital08-01-2022 Instructions* Patient Instructions* Mary Hardin APRN.CNP - 10/28/2021 2:33 PM EDT 1. Get labwork. 2. Keep appt w/ cardiology, as planned. documented in this encounterZanesville City Hospital08-01-2022 History of Present illness Narrative* Mary [...] Obesity, Class III, BMI 40-49.9 (morbid obesity) ([facility]) 02/22/2021 Pes cavus 07/12/2021 PAST SURGICAL HISTORY [...] Will check labs. Follow-up pending results. - ROLL OVER LOADER THYROID 30 MG TABLET - TSH BLD [...] as needed for worsening/no improvement. Mary Hardin APRN.CNP documented in this encounterZanesville City Hospital07-27-2022 Instructions* Patient Instructions* Xander Mendoza APRN.CNP [...] redness, drainage or pus). documented in this encounterZanesville City Hospital07-27-2022 History of Present illness Narrative* Xander [...] of care. This note was generated using Evtron software. It may contain errors in wording, punctuation, or spelling. Xander Mendoza APRN.CNP documented in this encounterZanesville City Hospital06-26-2022 Miscellaneous Notes* Telephone Encounter - Kathy Harris - 09/22/2021 10:33 AM EDT Patient is scheduled in Nov with [facility]. Kathy Harris * Telephone Encounter - Vladimir [...] schedule. Mary Hardin APRN.CNP documented in this encounterZanesville City Hospital06-06-2022 Nurse Note* Vladimir Pope LPN - 09/02/2021 3:46 PM EDT EVENT MONITOR DISPOSABLE PATCH INSTRUCTIONS Patient Name: Lakshmi Townsend [facility] Number: [id number] Skin prepped and cleansed with alcohol Patch secured to prepped area Monitor Activated Serial #: [id number] Patient Instructed: 1.) Prescribed order timeframe 2.) Bathing guidelines 3.) Usage of event button and diary documentation 4.) Return of monitor at the end of prescribed order 5.) Call with problems [phone] or [phone]. [phone] Patient expresses a good understanding of instructions Vladimir Pope LPN documented in this encounterZanesville City Hospital06-06-2022 Instructions* Patient Instructions* Leslie Perez RD [...] journal or food log documented in this encounterZanesville City Hospital06-06-2022 History of Present illness Narrative* Leslie [...] Readings: Date: Ht: 09/02/2021 149.9 cm (4' 11) Current weight: Last 1 Encounter Wt Readings: [...] Physical limitations affecting learning: None Referred/Supervised by: Tyron/Ernesto LINDER Billing Type: Initial Assess/15 min 2 units SIGNATURE: Leslie Perez RD PATIENT NAME: Lakshmi Mcgee DATE: September 02, 2021 TIME: 2:33 PM documented in this encounterZanesville City Hospital06-03-2022 Instructions* Patient Instructions* Mary Hardin APRN.CNP - 08/30/2021 10:05 AM EDT 1. Schedule echocardiogram. 2. Check w/ insurance re: [employer] coverage. 3. To ER with any sustained palpitations or other symptoms (chest pain/shortness of breath, dizziness, etc). documented in this encounterZanesville City Hospital06-03-2022 History of Present illness Narrative* Mary Hardin APRN.CNP - 08/30/2021 9:56 AM EDT This is [...] as needed for worsening/no improvement. Mary Hardin APRN.THEORETICAL PHYSICIST documented in this encounterZanesville City Hospital04-15-2022 Instructions* Patient Instructions* Power Escamilla APRN.CNP, [...] Power Escamilla APRN.ADY COOPER documented in this encounterZanesville City Hospital04-15-2022 History of Present illness Narrative* Power Escamilla APRN.CNP, DNP - 07/12/2021 2:40 PM EDT Chief Complaint [...] months. Minimal swelling today. Occasionally hands swell. Liiy-[id number]-[id number] mom. 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 On her feet most [...] Obesity, Class III, BMI 40-49.9 (morbid obesity) ([facility]) 02/22/2021 Pes cavus 07/12/2021 Previous Surgical History [...] TSH WNL. Continue to monitor Power Escamilla APRN.ADY COOPER This note was completed with [employer] dictation software. Note was reviewed for accuracy. There may be minor misspellings or grammar miscues with [employer] Dictation. I spent a total of 32 minutes on the date of the service which included preparing to see the patient, eyth-ge-itry patient care, completing clinical documentation, performing a medically appropriate examination, counseling and educating the patient/family/caregiver and ordering medications, tests, or procedures. [place] [id number] This note was copied from previous note and exam dated 02/22/21. Author is Power Escamilla APRN.ADY COOPER note reviewed and changes have been made or updates noted in the copy & paste portion of an encounter. documented in this encounterZanesville City Hospital04-14-2022 NotePap Smear Specimen AdequacyApril 2021 11:40amCommentSatisfactory for evaluation. No endocervical component is identified.[facility] A#[id number] Health Work Phone: Comment on above:Satisfactory for evaluation. No endocervical component is identified.06-22-2021 History of Present illness Narrative* Dank Feng APRN.THEORETICAL PHYSICIST - 06/22/2021 10:23 AM EDT Subjective HPI [...] plan Dank Feng APRN.CNP documented in this encounterZanesville City Hospital02-07-2022 History of Present illness Narrative* Esvin [...] an issue she should follow-up with a invisible braces orthodontist. The patient indicates understanding of these issues and agrees with the plan. Return to clinic PRN Esvin Correa MD [employer] Services Manager Note: To expedite correspondence this note was generated by [employer] recognition software. Somegrammatical or spelling errors may occur using the system. documented [facility]* Diagnosis Elevated sed rate- Primary Elevated sedimentation rate CRP elevated Elevated C-reactive protein (CRP) Leukocytosis, unspecified type Class 3 severe obesity due to excess calories without serious comorbidity with body mass index (BMI) of 40.0 to 44.9 in adult ([facility]) documented in this encounter [facility]* Diagnosis URI, acute- Primary Acute upper respiratory infections of unspecified site Sore throat Acute pharyngitis documented in this encounter [facility] note* Diagnosis Localized swelling of both lower legs- Primary Pes cavus Talipes cavus Increased heart rate Tachycardia, unspecified Obesity, Class III, BMI 40-49.9 (morbid obesity) ([facility]) Morbid obesity Hypothyroidism, acquired Unspecified hypothyroidism documented in this encounter [facility] noteNo assessment information availableWAshtabula [facility] Work Phone: Evaluation note* Diagnosis Tachycardia- Primary Tachycardia, unspecified documented in this encounter [facility] note* Diagnosis Dietary counseling- Primary Dietary surveillance and counseling Obesity, Class III, BMI 40-49.9 (morbid obesity) ([facility]) Morbid obesity documented in this encounter [facility] note* Diagnosis Tachycardia- Primary Tachycardia, unspecified documented in this encounter [facility] note* Diagnosis Tachycardia- Primary Tachycardia, unspecified documented in this encounter [facility] note* Diagnosis Rash- Primary Rash and other nonspecific skin eruption documented in this encounter [facility] note* Diagnosis Hypothyroidism, acquired- Primary Unspecified hypothyroidism Iron deficiency anemia, unspecified iron deficiency anemia type Tachycardia Tachycardia, unspecified documented in this encounter [facility] note* Diagnosis Leukocytosis, unspecified type- Primary Hypothyroidism, acquired Unspecified hypothyroidism documented in this encounter [facility] note* Diagnosis Rash- Primary Rash and other nonspecific skin eruption documented in this encounter [facility] note* Diagnosis Obesity, Class III, BMI 40-49.9 (morbid obesity) ([facility])- Primary Morbid obesity Dietary counseling Dietary surveillance and counseling documented in this encounter [facility] note* Diagnosis Chest pain, unspecified type- Primary documented in this encounter [facility] note* Diagnosis Elevated sed rate- Primary Elevated sedimentation rate Leukocytosis, unspecified type documented in this encounter [facility] note* Diagnosis Tachycardia- Primary Tachycardia, unspecified Elevated sed rate Elevated sedimentation rate Hypothyroidism, acquired Unspecified hypothyroidism Chest wall pain Painful respiration Palpitations documented in this encounter [facility] note* Diagnosis Chest wall pain- Primary Painful respiration documented in this encounter [facility] note* Diagnosis OPENED IN ERROR- Primary To allow closing an encounter opened in error (used in SmartSet) documented in this encounter [facility] note* Diagnosis Chest wall pain- Primary Painful respiration documented in this encounter [facility] note* Diagnosis Chest wall pain- Primary Painful respiration documented in this encounter [facility] note* Diagnosis Tachycardia- Primary Tachycardia, unspecified Encounter for screening for cardiovascular disorders Screening for other and unspecified cardiovascular conditions SAHU (dyspnea on exertion) Other dyspnea and respiratory abnormality Chest tightness Other chest pain documented in this encounter [facility] note* Diagnosis Hypothyroidism, acquired- Primary Unspecified hypothyroidism Obesity, Class III, BMI 40-49.9 (morbid obesity) (HCC) Morbid obesity Mild episode of recurrent major depressive disorder (HCC) Neurodermatitis Lichenification and lichen simplex chronicus Prurigo nodularis Lichenification and lichen simplex chronicus Tachycardia, unspecified Somatic dysfunction of rib documented in this encounter [facility] note* Diagnosis Tachycardia, unspecified- Primary Hypothyroidism, acquired Unspecified hypothyroidism Edema, unspecified type SOB (shortness of breath) Shortness of breath Elevated sed rate Elevated sedimentation rate Near syncope Syncope and collapse Joint swelling Effusion of joint, site unspecified documented in this encounter [facility] note* Diagnosis Abnormal x-ray- Primary Other nonspecific (abnormal) findings on radiological and other examinations of body structure documented in this encounter [facility] note* Diagnosis Finger swelling- Primary Swelling of limb Swelling of both hands Elevated sed rate Elevated sedimentation rate documented in this encounter [facility] note* Diagnosis URI, acute- Primary Acute upper respiratory infections of unspecified site Acute otitis media, right Unspecified otitis media documented in this encounter [facility] note* Diagnosis Screening for ischemic heart disease- Primary documented in this encounter [facility] note* Diagnosis Family history of hypertrophic cardiomyopathy- Primary Family history of other cardiovascular diseases Family history of genetic disorder Family history of other condition [facility] Diagnosis Tachycardia, unspecified- Primary Swelling of both hands Elevated sed rate Elevated sedimentation rate URI, acute Acute upper respiratory infections of unspecified site [facility]* Diagnosis Abnormal x-ray- Primary Other nonspecific (abnormal) findings on radiological and other examinations of body structure [facility]* Diagnosis Pain in joint, multiple sites- Primary Finger swelling Swelling of limb Swelling of both hands Elevated sed rate Elevated sedimentation rate Anasarca Edema Abnormal CXR Other nonspecific abnormal finding of lung field Tachycardia Tachycardia, unspecified Shortness of breath Malaise and fatigue Other malaise and fatigue Acrocyanosis (HCC) Other peripheral vascular disease [facility]* Diagnosis Finger swelling Swelling of limb Swelling of both hands Elevated sed rate Elevated sedimentation rate Pain in joint, multiple sites Anasarca Edema Abnormal CXR Other nonspecific abnormal finding of lung field Tachycardia Tachycardia, unspecified Shortness of breath Malaise and fatigue Other malaise and fatigue Acrocyanosis (HCC) Other peripheral vascular disease [facility]* Diagnosis Secondary lymphedema- Primary Other lymphedema Finger swelling Swelling of limb Swelling of both hands Pain in joint, multiple sites Anasarca Edema Leg swelling Swelling of limb Morbid obesity with BMI of 40.0-44.9, adult (HCC) Morbid obesity [facility]* Diagnosis Abnormal finding on imaging- Primary Other nonspecific (abnormal) findings on radiological and other examinations of body structure Ground glass opacity present on imaging of lung Wheezing Obesity, Class III, BMI 40-49.9 (morbid obesity) (HCC) Morbid obesity [facility]* Diagnosis Hypothyroidism, acquired- Primary Unspecified hypothyroidism Mild episode of recurrent major depressive disorder (HCC) Gastroesophageal reflux disease, unspecified whether esophagitis present [facility]* Diagnosis Wheezing [facility]* Diagnosis Wheezing- Primary Abnormal finding on imaging Other nonspecific (abnormal) findings on radiological and other examinations of body structure Epigastric pain Abdominal pain, epigastric [facility]* Diagnosis Finger swelling Swelling of limb Swelling of both hands Elevated sed rate Elevated sedimentation rate Pain in joint, multiple sites Anasarca Edema Abnormal CXR Other nonspecific abnormal finding of lung field Tachycardia Tachycardia, unspecified Shortness of breath Malaise and fatigue Other malaise and fatigue Acrocyanosis (HCC) Other peripheral vascular disease [facility]* Diagnosis GERD without esophagitis- Primary Esophageal reflux Lymphadenopathy, axillary Enlargement of lymph nodes Elevated sed rate Elevated sedimentation rate CRP elevated Elevated C-reactive protein (CRP) Pain in axilla, unspecified laterality Dermatitis Contact dermatitis and other eczema, due to unspecified cause documented [facility] this encounter [facility]* Diagnosis Lymphadenopathy, axillary- Primary Enlargement of lymph nodes documented [facility] this encounter [facility]* Diagnosis Esophageal pain Other specified disorder of the esophagus GERD without esophagitis Esophageal reflux Lymphadenopathy, axillary Enlargement of lymph nodes documented [facility] this encounter [facility]* Diagnosis URI, acute- Primary Acute upper respiratory infections of unspecified site Dermatitis Contact dermatitis and other eczema, due to unspecified cause Lymphadenopathy, axillary Enlargement of lymph nodes GERD without esophagitis Esophageal reflux Arthralgia of both hands Elevated sed rate Elevated sedimentation rate Swelling of finger Swelling of limb documented in this encounter [facility] note* Diagnosis Secondary lymphedema- Primary Other lymphedema Swelling of both hands Leg swelling Swelling of limb documented [facility] this encounter [facility]* Diagnosis Obesity, Class III, BMI 40-49.9 (morbid obesity) (HCC)- Primary Morbid obesity Weight gain Abnormal weight gain Hypothyroidism, unspecified type Malaise and fatigue Other malaise and fatigue Pain in joint, multiple sites Enlarged lymph node Enlargement of lymph nodes Encounter for screening for diabetes mellitus Screening for diabetes mellitus documented in this encounter [facility] note* Diagnosis GERD without esophagitis- Primary Esophageal reflux documented [facility] this encounter [facility]* Diagnosis Onset Date Resolution Status Intermittent palpitations [facility] Work Phone: Evaluation note* Diagnosis Hypothyroidism, acquired Unspecified hypothyroidism documented in this encounter [facility]* Diagnosis Abnormal ultrasound- Primary Other nonspecific (abnormal) findings on radiological and other examinations of body structure documented in this encounter [facility] note* Diagnosis Mild episode of recurrent major depressive disorder (HCC) documented in this encounter [facility] note* Diagnosis Tachycardia, unspecified documented [facility] this encounter [facility]* Diagnosis Lymphadenopathy, axillary Enlargement of lymph nodes [facility]* Diagnosis Abnormal finding on imaging Other nonspecific (abnormal) findings on radiological and other examinations of body structure Ground glass opacity present on imaging of lung documented [facility]* Diagnosis Tachycardia Tachycardia, unspecified Encounter for screening for cardiovascular disorders Screening for other and unspecified cardiovascular conditions SAHU (dyspnea on exertion) Other dyspnea and respiratory abnormality Chest tightness Other chest pain [facility]* Diagnosis Lymphadenopathy, axillary Enlargement of lymph nodes Pain in axilla, unspecified laterality documented [facility] this [facility]* Diagnosis Lymphadenopathy, axillary Enlargement of lymph nodes Pain in axilla, unspecified laterality documented [facility] this [facility]* Diagnosis Hypothyroidism, acquired Unspecified hypothyroidism Secondary lymphedema Other lymphedema Leg swelling Swelling of limb Morbid obesity with BMI of 40.0-44.9, adult (HCC) Morbid obesity [facility]* Diagnosis Mild episode of recurrent major depressive disorder (HCC) documented in this [facility]* Diagnosis Tachycardia, unspecified [facility]* Diagnosis Hypothyroidism, acquired Unspecified hypothyroidism documented [facility] this [facility]* Diagnosis Tachycardia, unspecified Edema, unspecified type SOB (shortness of breath) Shortness of breath Near syncope Syncope and collapse documented [facility] this [facility]* Diagnosis Abnormal x-ray Other nonspecific (abnormal) findings on radiological and other examinations of body structure documented [facility] this [facility]* Diagnosis Mild episode of recurrent major depressive disorder (HCC) documented [facility] this [facility]* Diagnosis Tachycardia, unspecified [facility]* Diagnosis Acute otitis media, left- Primary Unspecified otitis media [facility] Additional Instructions Other than your elevated D-dimer your tests were normal. Your chest x-ray and CAT scan your chest were unremarkable. Follow-up with your primary care provider.[facility] Work Phone: Hospital Discharge instructions Additional Instructions 1. Contact Dr. Doherty regarding your thyroid medication. Your levels may be fluctuating because you are on thyroid pork instead of levothyroxine. 2. Keep scheduled appointment for [facility]WAs[facility] Work Phone: Hospital Discharge instructions Additional Instructions Thank you for trusting us with your care today! Please take Tylenol (2 pills, 650 mg), ibuprofen (2 pills, 400 mg) every 6 hours as needed for pain and fever control. Please take Tamiflu. Please return to the emergency department if your symptoms change or worsen. Please follow with your primary care physician for further outpatient evaluation and management.[facility] Work Phone: Hospital Discharge instructionsAmbulatory Orders* PT Referral Location: None Selected [facility] Work Phone: Reason for referral (narrative)* Outpatient Procedure (Routine) - Authorized Specialty Diagnoses / Procedures Referred By Jax ford Referred To Contact [facility] [place] Diagnoses Tachycardia Procedures ECHO ECHO TTHRC R-T 2D W/WOM-MODE COMPL SPEC&COLR D Mary Hardin APRN.THEORETICAL PHYSICIST [address] [place] [address] [facility] [address] [address] Referral ID Status Reason Start Date Expiration Date Visits Requested Visits Authorized [id number] Authorized Auto-Generat ed Referral 08/30/2021 10/29/2021 1 1 * Outpatient Procedure (Routine) - Authorized Specialty Diagnoses / Procedures Referred By Jax ford Referred To Contact [facility] Diagnoses Tachycardia Procedures ECG COMPLETE ECG ROUTINE ECG W/LEAST 12 LDS W/I&R Mary Hardin APRN.THEORETICAL PHYSICIST [address] [place] [address] [facility] [address] [place] [address] Referral ID Status Reason Start Date Expiration Date Visits Requested Visits Authorized [id number] Authorized Auto-Generat ed Referral 08/30/2021 08/30/2022 1 1 [facility] for referral (narrative)* Diagnostic Procedure Only (Routine) - Pending Review Specialty Diagnoses / Procedures Referred By Contac t Referred To Contact MOLECULAR & FUNCTIONAL IMAGING Diagnoses Tachycardia Encounter for screening for cardiovascular disorders SAHU (dyspnea on exertion) Chest tightness Procedures NM CARDIAC PERF STRESS/EXERCISE MYOCARDIAL SPECT MULTIPLE STUDIES Anju Blake APRN.CNP [address] [place] [address] Molecular & Functional Imaging [address] [place] [address] Referral ID Status Reason Start Date Expiration Date Visits Requested Visits Authorized [id number] Pending Review Auto-Generat ed Referral 2 03/26/[address] [facility] for referral (narrative)* Outpatient Procedure (Routine) - Authorized Specialty Diagnoses / Procedures Referred By Contac t Referred To Contact [facility] Diagnoses Tachycardia, unspecified Procedures ECG COMPLETE ECG ROUTINE ECG W/LEAST 12 LDS W/I&R Rene Doherty MD [address] [place] [address] [facility] [place] [id number] [place] [address] Referral ID Status Reason Start Date Expiration Date Visits Requested Visits Authorized [id number] Authorized Auto-Generat ed Referral 05/05/2022 05/05/[address] [facility] for referral (narrative)* Diagnostic Procedure Only (Routine) - Closed Specialty Diagnoses / Procedures [facility] Referred To Contact XR IMAGING Diagnoses Finger swelling Swelling of both hands Elevated sed rate Pain in joint, multiple sites Anasarca Abnormal CXR Tachycardia Shortness of breath Malaise and fatigue Acrocyanosis (HCC) Procedures XR ANKLE GENERAL 3V AP/LAT/OBL BILATERAL RADEX ANKLE COMPLETE MINIMUM 3 VIEWS Lucy Van MD [address] [place] [address] Xr Imaging Referral ID Status Reason Start Date Expiration Date V isits Requested Visits Authorized [id number] Closed Auto-Generate d Referral 05/23/2022 06/22/2023 1 [...] COMPLETE MINIMUM 3 VIEWS Lucy Van MD [address] [place] [address] Xr Imaging Referral ID Status Reason Start Date Expiration Date V isits Requested Visits Authorized [id number] Closed Auto-Generate d Referral 05/23/2022 06/22/2023 1 [...] HAND MINIMUM 3 VIEWS Lucy Van MD [address] [place] [address] Xr Imaging Referral ID Status Reason Start Date Expiration Date V isits Requested Visits Authorized [id number] Closed Auto-Generate d Referral 05/23/2022 06/22/2023 1 1 [facility] for referral (narrative)* Diagnostic Procedure Only [...] XTR STRUX R-T W/IMG Lucy Van MD [address] [place] [address] Us Imaging Referral ID Status Reason Start Date Expiration Date V isits Requested Visits Authorized [id number] Closed Auto-Generate d Referral 05/23/2022 06/22/2023 1 [...] JOINT R-T W/IMAGE DOCUMENTATION Lucy Van MD [address] [place] [address] Us Imaging Referral ID Status Reason Start Date Expiration Date V isits Requested Visits Authorized [id number] Closed Auto-Generate d Referral 05/23/2022 06/22/2023 1 [...] R-T W/IMAGE DOCUMENTATION Lucy Van MD [address] [place] [address] Us Imaging Referral ID Status Reason Start Date Expiration Date V isits Requested Visits Authorized [id number] Closed Auto-Generate d Referral 05/23/2022 06/22/2023 1 [...] R-T W/IMAGE DOCUMENTATION Lucy Van MD [address] [place] [address] Us Imaging Referral ID Status Reason Start Date Expiration Date V isits Requested Visits Authorized [id number] Closed Auto-Generate d Referral 05/23/2022 06/22/2023 1 1 [facility] for referral (narrative)* Diagnostic Procedure Only (Routine) - Pending Review Specialty Diagnoses / Procedures Referred By Jax ford Referred To Contact BR IMAGING Diagnoses Lymphadenopathy, axillary Procedures US BREAST LTD LEFT US BREAST UNI REAL TIME WITH IMAGE LIMITED Rene Doherty MD [address] [place] [address] Br Imaging [address] [place] [address] Referral ID Status Reason Start Date Expiration Date Visits Requested Visits Authorized [id number] Pending Review Auto-Generat ed Referral 09/24/2022 07/24/2023 1 1 [facility] for referral (narrative)* Outpatient Procedure (Routine) - Authorized Specialty Diagnoses / Procedures [facility] Referred To [facility] Diagnoses GERD without esophagitis Procedures EGD DIAGNOSTIC ESOPHAGOGASTRODUODENOSC OPY TRANSORAL DIAGNOSTIC aMry Carlisle MD [address] [facility] [place] [place] [address] [facility] [place] [address] [place] [address] Referral ID Status Reason Start Date Expiration Date Visits Requested Visits Authorized [id number] Authorized Auto-Generat ed Referral 06/24/2022 06/25/2023 1 1 [facility] for referral (narrative)* Diagnostic Procedure Only (Routine) - Denied Specialty Diagnoses / Procedures Referred By Contac t Referred To Contact BR IMAGING Diagnoses Abnormal ultrasound Procedures US BREAST LTD LEFT US BREAST UNI REAL TIME WITH IMAGE LIMITED Rene Doherty MD [address] [place] [address] Br Imaging [address] [place] [address] Referral ID Status Reason Start Date Expiration Date V isits Requested Visits Authorized [id number] Denied Auto-Generate d Referral 04/09/2023 11/06/2023 1 0 [facility] for referral (narrative)* Diagnostic Procedure Only (Routine) - Closed Specialty Diagnoses / Procedures Referred By Contac t Referred To Contact BR IMAGING Diagnoses Lymphadenopathy, axillary Procedures US BREAST LTD LEFT US BREAST UNI REAL TIME WITH IMAGE LIMITED Rene Doherty MD [address] [place] [address] Br Imaging [address] [place] [address] Referral ID Status Reason Start Date Expiration Date V isits Requested Visits Authorized [id number] Closed Auto-Generate d Referral 09/24/2022 07/24/2023 1 1 [facility] for referral (narrative)* Diagnostic Procedure Only (Routine) - Closed Specialty Diagnoses / Procedures Referred By Contac t Referred To Contact MOLECULAR & FUNCTIONAL IMAGING Diagnoses Tachycardia Encounter for screening for cardiovascular disorders SAHU (dyspnea on exertion) Chest tightness Procedures NM CARDIAC PERF STRESS/EXERCISE MYOCARDIAL SPECT MULTIPLE STUDIES Anju Blake, BALANCE BRIDGE INSPECTOR.THEORETICAL PHYSICIST [address] [place] [address] Molecular & Functional Imaging [phone] Referral ID Status Reason Start Date Expiration Date V isits Requested Visits Authorized [id number] Closed Auto-Generate d Referral 04/13/2022 06/12/2022 3 3 [facility] for referral (narrative)* Diagnostic Procedure Only (Routine) - Closed Specialty Diagnoses / Procedures Referred By Contac t Referred To Contact BR IMAGING Diagnoses Lymphadenopathy, axillary Pain in axilla, unspecified laterality Procedures US BREAST LTD RIGHT US BREAST UNI REAL TIME WITH IMAGE LIMITED Rene Doherty MD [address] [place] [address] Br Imaging [address] [place] [address] Referral ID Status Reason Start Date Expiration Date V isits Requested Visits Authorized [id number] Closed Auto-Generate d Referral 06/23/2022 07/23/2023 1 1 * Diagnostic Procedure Only (Routine) - Closed Specialty Diagnoses / Procedures Referred By Contac t Referred To Contact BR IMAGING Diagnoses Lymphadenopathy, axillary Pain in axilla, unspecified laterality Procedures US BREAST LTD LEFT US BREAST UNI REAL TIME WITH IMAGE LIMITED Rene Doherty MD [address] [place] [address] Br Imaging [address] [place] [address] Referral ID Status Reason Start Date Expiration Date V isits Requested Visits Authorized [id number] Closed Auto-Generate d Referral 06/23/2022 07/23/2023 1 1 [facility] for referral (narrative)No reason for referral information [facility]WAs[facility] Work Phone: Reason for visit Narrative* Diagnostic Procedure Only (Routine) - Authorized Specialty Diagnoses / Procedures Referred By Contac t Referred To Contact MOLECULAR & FUNCTIONAL IMAGING Diagnoses Tachycardia Encounter for screening for cardiovascular disorders SAHU (dyspnea on exertion) Chest tightness Procedures NM CARDIAC PERF STRESS/EXERCISE MYOCARDIAL SPECT MULTIPLE STUDIES Anju Blake APRN.THEORETICAL PHYSICIST [address] [place] [address] Molecular & Functional Imaging [phone] Referral ID Status Reason Start Date Expiration Date Visits Requested Visits Authorized [id number] Authorized Auto-Generat ed Referral 04/13/2022 06/12/2022 3 3 [facility] for visit Narrative* Diagnostic Procedure Only (Routine) - Closed Specialty Diagnoses / Procedures Referred By Jax t Referred To Contact XR IMAGING Diagnoses Finger swelling Swelling of both hands Elevated sed rate Pain in joint, multiple sites Anasarca Abnormal CXR Tachycardia Shortness of breath Malaise and fatigue Acrocyanosis (HCC) Procedures XR ANKLE GENERAL 3V AP/LAT/OBL BILATERAL RADEX ANKLE COMPLETE MINIMUM 3 VIEWS Lucy Van MD [address] [place] [address] Xr Imaging Referral ID Status Reason Start Date Expiration Date V isits Requested Visits Authorized [id number] Closed Auto-Generate d Referral 05/23/2022 06/22/2023 1 1 [facility] for visit Narrative* Diagnostic Procedure Only [...] JOINT R-T W/IMAGE DOCUMENTATION Lucy Van MD [address] [place] [address] Us Imaging Referral ID Status Reason Start Date Expiration Date V isits Requested Visits Authorized [id number] Closed Auto-Generate d Referral 05/23/2022 06/22/2023 1 1 [facility] for visit Narrative* Diagnostic Procedure Only (Routine) - Closed Specialty Diagnoses / Procedures Referred By Jax t Referred To Contact MOLECULAR & FUNCTIONAL IMAGING Diagnoses Tachycardia Encounter for screening for cardiovascular disorders SAHU (dyspnea on exertion) Chest tightness Procedures NM CARDIAC PERF STRESS/EXERCISE MYOCARDIAL SPECT MULTIPLE STUDIES Anju Blake, BALANCE BRIDGE INSPECTOR.THEORETICAL PHYSICIST [address] [place] [address] Molecular & Functional Imaging [address] [place] [address] Referral ID Status Reason Start Date Expiration Date V isits Requested Visits Authorized [id number] Closed Auto-Generate d Referral 04/13/2022 06/12/2022 3 3 [facility] Procedure Only (Routine) - Closed Specialty Diagnoses / Procedures Referred By Contac t Referred To Contact BR IMAGING Diagnoses Lymphadenopathy, axillary Pain in axilla, unspecified laterality Procedures MIRACLE DIAGNOSTIC BILATERAL DIAGNOSTIC MAMMOGRAPHY COMPUTER-AIDED DETCJ Rene Lagunas MD [address] [place] [address] Br Imaging [address] [place] [address] Referral ID Status Reason Start Date Expiration Date V isits Requested Visits Authorized [id number] Closed Auto-Generate d Referral 06/23/2022 07/23/2023 1 1 [facility] Summary Purpose Family History No Family History Records Found Relationship Condition Age at Onset Recorded Date/T shahida grandmother Malignant neoplasm Unknown Advance Directives No Advanced Directives Records FoundDocuments on File Type Date Recorded 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 Advance Directives and Living Will Advance Directive Response Recorded Date/ Time Living Will No February 09 10:39pm Power of Soapstoner No February 09, 2021 10:39pm Advance Directive Response Recorded Date/ Time Living Will No November 24 8:22pm Power of Soapstoner No November 24 8:22pm Advance Directive Response Recorded Date/ Time Living Will No November 25 11:11am Power of Soapstoner No November 25 11:11am Advance Directive Response Recorded Date/ Time Living Will No December 04 7:20pm Power of Soapstoner No December 04, 2021 7:20pm Advance Directive Response Recorded Date/ Time Living Will No December 06 4:23pm Power of Soapstoner No December 06, 2021 4:23pm Advance Directive Response Recorded Date/ Time Living Will No June 07, 2022 10:58pm Power of Soapstoner No June 07 10:58pm Advance Directive Response Recorded Date/ Time Living Will No September 05, 2022 6 :21pm Power of Soapstoner No September 05, 2022 6:21pm Advance Directive Response Recorded Date/ Time Living Will No March 30 4 2:52pm Power of Soapstoner No March 30 2:52pm Advance Directive Response Recorded Date/ Time Living Will No March 30 4 3:52pm Do you have a Healthcare Power of Soapstoner? No March 30, 2023 3:52pm Reason for Referral Specialty Diagnoses / Procedures Referred By Contac t Referred To Contact Nutrition Diagnoses Obesity, Class III, BMI 40-49.9 (morbid obesity) (HCC) Procedures CONSULT TO NUTRITION THERAPY OFFICE/OUTPATIENT [facility] 60-74 MINUTES Power Escamilla, BALANCE BRIDGE INSPECTOR.ALLISON, DNP [address] [place] [address] Referral ID Status Reason Start Date Expiration Date Visits Requested Visits Authorized [id number] Authorized PCP Requested Referral 07/12/2021 07/12/2022 1 1 Specialty Diagnoses / Procedures Referred By Contac t Referred To Contact Podiatry Diagnoses Pes cavus Localized swelling of both lower legs Procedures CONSULT TO PODIATRY OFFICE/OUTPATIENT [facility] 60-74 MINUTES Power Escamilla, BALANCE BRIDGE INSPECTOR.ALLISON, DNP [address] [place] [address] Referral ID Status Reason Start Date Expiration Date Visits Requested Visits Authorized [id number] Authorized PCP Requested Referral 07/26/2021 07/12/2022 1 1 Specialty Diagnoses / Procedures Referred By Contac t Referred To Contact Cardiology Diagnoses Tachycardia Procedures CONSULT TO CARDIOLOGY OFFICE/OUTPATIENT [facility] 60-74 MINUTES Mary Hardin APRN.THEORETICAL PHYSICIST [address] [place] [address] Referral ID Status Reason Start Date Expiration Date Visits Requested Visits Authorized [id number] Authorized PCP Requested Referral 09/16/2021 09/16/2022 1 1 Specialty Diagnoses / Procedures Referred By Contac t Referred To Contact [facility] Diagnoses Chest wall pain Procedures CONSULT TO PHYSICAL THERAPY PHYSICAL THERAPY EVALUATION HIGH COMPLEX 45 MINS Rene Doherty MD [address] [place] [address] [facility] [address] [address] Referral ID Status Reason Start Date Expiration Date Visits Requested Visits Authorized [id number] Pending Review Auto-Generat ed Referral 12/17/2021 12/17/2022 1 1 Specialty Diagnoses / Procedures Referred By Jax t Referred To Contact [facility] Diagnoses Chest wall pain Procedures PT REHAB FOLLOW UP ORDER PT REHAB FOLLOW UP ORDER THERAPEUTIC EXERCISES RE, EA 15 MIN. [facility]vin Valencia [facility] [address] [address] Referral ID Status Reason Start Date Expiration Date Visits Requested Visits Authorized [id number] Pending Review PCP Requested Referral Auto-Generate d Referral 12/19/2021 03/19/2022 1 1 Specialty Diagnoses / Procedures Referred By Jax t Referred To Contact Rheumatology Diagnoses Finger swelling Swelling of both hands Elevated sed rate Procedures CONSULT TO RHEUM/IMMUN DISEASE OFFICE/OUTPATIENT [facility] 60-74 MINUTES Rene Doherty MD [address] [place] [address] Referral ID Status Reason Start Date Expiration Date Visits Requested Visits Authorized [id number] Authorized PCP Requested Referral 05/06/2022 05/06/2023 1 1 Specialty Diagnoses / Procedures Referred By Jax t Referred To Contact Vascular Medicine Diagnoses Finger swelling Swelling of both hands Elevated sed rate Pain in joint, multiple sites Anasarca Abnormal CXR Tachycardia Shortness of breath Malaise and fatigue Acrocyanosis (HCC) Procedures CONSULT TO VASCULAR MEDICINE OFFICE/OUTPATIENT [facility] 60-74 MINUTES Lucy Van MD [address] [place] [address] Referral ID Status Reason Start Date Expiration Date Visits Requested Visits Authorized [id number] Authorized PCP Requested Referral 05/23/2022 05/23/2023 1 1 Specialty Diagnoses / Procedures Referred By Jax t Referred To Contact US IMAGING Diagnoses Finger swelling Swelling of both hands Elevated sed rate Pain in joint, multiple sites Anasarca Abnormal CXR Tachycardia Shortness of breath Malaise and fatigue Acrocyanosis (HCC) Procedures US FOOT/ANKLE SYNOVIAL SCREEN LT US LMTD JOINT/OTH NONVASC XTR STRUX R-T W/IMG Lucy Van MD [address] [place] [address] Us Imaging Referral ID Status Reason Start Date Expiration Date Visits Requested Visits Authorized [id number] Pending Review Auto-Generat ed Referral 05/23/2022 06/22/2023 [...] JOINT R-T W/IMAGE DOCUMENTATION Lucy Van MD [address] [place] [address] Us Imaging Referral ID Status Reason Start Date Expiration Date Visits Requested Visits Authorized [id number] Pending Review Auto-Generat ed Referral 05/23/2022 06/22/2023 [...] JOINT R-T W/IMAGE DOCUMENTATION Lucy Van MD [address] [place] [address] Us Imaging Referral ID Status Reason Start Date Expiration Date Visits Requested Visits Authorized [id number] Pending Review Auto-Generat ed Referral 05/23/2022 06/22/2023 [...] JOINT R-T W/IMAGE DOCUMENTATION Lucy Van MD [address] [place] [address] Us Imaging Referral ID Status Reason Start Date Expiration Date Visits Requested Visits Authorized [id number] Pending Review Auto-Generat ed Referral 05/23/2022 06/22/2023 [...] COMPLETE MINIMUM 3 VIEWS Lucy Van MD [address] [place] [address] Xr Imaging Referral ID Status Reason Start Date Expiration Date V isits Requested Visits Authorized [id number] Closed Auto-Generate d Referral 05/23/2022 06/22/2023 1 [...] COMPLETE MINIMUM 3 VIEWS Lucy Van MD [address] [place] [address] Xr Imaging Referral ID Status Reason Start Date Expiration Date V isits Requested Visits Authorized [id number] Closed Auto-Generate d Referral 05/23/2022 06/22/2023 1 1 Specialty Diagnoses / Procedures Referred By Contac t Referred To Contact XR IMAGING Diagnoses Finger swelling Swelling of both hands Elevated sed rate Pain in joint, multiple sites Anasarca Abnormal CXR Tachycardia Shortness of breath Malaise and fatigue Acrocyanosis (HCC) Procedures XR HAND GENERAL 3V PA/LAT/OBL BILATERAL RADEX HAND MINIMUM 3 VIEWS Lucy Van MD [address] [place] [address] Xr Imaging Referral ID Status Reason Start Date Expiration Date V isits Requested Visits Authorized [id number] Closed Auto-Generate d Referral 05/23/2022 06/22/2023 1 1 Specialty Diagnoses / Procedures Referred By Contac t Referred To Contact [facility] Diagnoses Swelling of both hands Secondary lymphedema Leg swelling Procedures CONSULT TO LYMPHEDEMA THERAPY OFFICE/OUTPATIENT NEW [facility]IGH MDM 60-74 MINUTES GardunoNileshDO [address] [facility] [place] [address] [facility] [address] [address] Referral ID Status Reason Start Date Expiration Date Visits Requested Visits Authorized [id number] Authorized Auto-Generat ed Referral 06/02/2022 06/02/2023 1 1 Specialty Diagnoses / Procedures Referred By Contac t Referred To Contact Diagnoses Secondary lymphedema Leg swelling Morbid obesity with BMI of 40.0-44.9, adult (HCC) Nilesh GardunoDO [address] [facility] [place] [address] Referral ID Status Reason Start Date Expiration Date Visits Re quested Visits Authorized [id number] Closed 1 1 Specialty Diagnoses / Procedures Referred By Contac t Referred To Contact CT IMAGING Diagnoses Abnormal finding on imaging Ground glass opacity present on imaging of lung Procedures CT CHEST WO IVCON DIAGNOSTIC COMPUTED TOMOGRAPHY THORAX W/O CNTRST Evelia Tompkins MD [address] [place] [address] Ct Imaging Referral ID Status Reason Start Date Expiration Date Visits Requested Visits Authorized [id number] Pending Review Auto-Genera bishop Referral Patient Cleared - Admin/Chair man/Directo r advise to proceed 06/05/2022 07/05/2023 1 1 Specialty Diagnoses / Procedures Referred By Contac t Referred To Contact [facility] Diagnoses Wheezing Procedures NITRIC OXIDE, EXHALED NITRIC OXIDE GAS DETERMINATION Evelia Tompkins MD [address] [place] [address] Respiratory [place] [address] [place] [address] Referral ID Status Reason Start Date Expiration Date Visits Requested Visits Authorized [id number] Authorized Auto-Generat ed Referral 06/05/2022 07/05/2023 1 1 Specialty Diagnoses / Procedures Referred By Contac t Referred To Contact [facility] Diagnoses Wheezing Procedures SPIROMETRY WITH DILATOR IF OBSTRUCTED BRNCDILAT RSPSE SPMTRY PRE&POST-BRNCDILAT ADMEvelia Matt MD [address] [place] [id number] Respiratory [place] [address] [place] [address] Referral ID Status Reason Start Date Expiration Date Visits Requested Visits Authorized [id number] Authorized Auto-Generat ed Referral 06/05/2022 07/05/2023 1 1 Specialty Diagnoses / Procedures Referred By Contac t Referred To Contact General Surgery Diagnoses GERD without esophagitis Lymphadenopathy, axillary Pain in axilla, unspecified laterality Procedures CONSULT TO GENERAL SURGERY OFFICE/OUTPATIENT [facility] 60-74 MINUTES Rene Doherty MD [address] [place], [place] [id number] Referral ID Status Reason Start Date Expiration Date Visits Requested Visits Authorized [id number] Authorized PCP Requested Referral 06/23/2022 06/23/2023 1 1 Specialty Diagnoses / Procedures Referred By Contac t Referred To Contact BR IMAGING Diagnoses Lymphadenopathy, axillary Pain in axilla, unspecified laterality Procedures US BREAST LTD RIGHT US BREAST UNI REAL TIME WITH IMAGE LIMITED Rene Doherty MD [address] [place] [address] Br Imaging [address] [place] [address] Referral ID Status Reason Start Date Expiration Date Visits Requested Visits Authorized [id number] Authorized Auto-Generat ed Referral 06/23/2022 07/23/2023 1 1 Specialty Diagnoses / Procedures Referred By Contac t Referred To Contact BR IMAGING Diagnoses Lymphadenopathy, axillary Pain in axilla, unspecified laterality Procedures US BREAST LTD LEFT US BREAST UNI REAL TIME WITH IMAGE LIMITED Rene Doherty MD [address] [place] [address] [facility] [address] [place] [address] Referral ID Status Reason Start Date Expiration Date Visits Requested Visits Authorized [id number] Authorized Auto-Generat ed Referral 06/23/2022 07/23/2023 1 1 Specialty Diagnoses / Procedures Referred By Contac t Referred To Contact BR IMAGING Diagnoses Lymphadenopathy, axillary Pain in axilla, unspecified laterality Procedures MIRACLE DIAGNOSTIC BILATERAL DIAGNOSTIC MAMMOGRAPHY COMPUTER-AIDED DETCJ BI Rene Doherty MD [address] [place] [address] Br Imaging [address] [place] [address] Referral ID Status Reason Start Date Expiration Date Visits Requested Visits Authorized [id number] Authorized Auto-Generat ed Referral 06/23/2022 07/23/2023 1 1 Specialty Diagnoses / Procedures Referred By Contac t Referred To Contact Dermatology Diagnoses Dermatitis Procedures CONSULT TO DERMATOLOGY Rene Doherty MD [address] [place] [address] Referral ID Status Reason Start Date Expiration Date Visits Requested Visits Authorized [id number] Ref Not Required PCP Requested Referral 07/21/2022 07/21/2023 1 1 Specialty Diagnoses / Procedures Referred By Contac t Referred To Contact PHYSICAL THERAPY Diagnoses Swelling of both hands Secondary lymphedema Leg swelling Procedures PT REHAB FOLLOW UP ORDER THERAPEUTIC EXERCISES RE, EA 15 MIN. Rene Doherty MD [address] [place] [address] Pt [facility] [address] [place] [address] Referral ID Status Reason Start Date Expiration Date Visits Requested Visits Authorized [id number] Pending Review PCP Requested Referral Auto-Generate d Referral 07/21/2022 10/19/2022 1 1 Specialty Diagnoses / Procedures Referred By Contac t Referred To Contact Diagnoses Obesity, Class III, BMI 40-49.9 (morbid obesity) (HCC) Procedures ENDOCRINE MEDICAL WEIGHT MANAGEMENT OFFICE/OUTPATIENT [facility] HIGH MDM 60-74 MINUTES Kristin Teixeira MD [address] [place] [address] Referral ID Status Reason Start Date Expiration Date Visits Requested Visits Authorized [id number] Authorized PCP Requested Referral 09/11/2022 09/11/2023 1 1 Specialty Diagnoses / Procedures Referred By Contac t Referred To Contact CT IMAGING Diagnoses Abnormal finding on imaging Ground glass opacity present on imaging of lung Procedures CT CHEST WO IVCON DIAGNOSTIC COMPUTED TOMOGRAPHY THORAX W/O Evelia Ling MD [address] [place] [address] [place] [address] Referral ID Status Reason Start Date Expiration Date V isits Requested Visits Authorized [id number] Closed Auto-Generat ed Referral Patient Cleared - Admin/Chairm an/Director advise to proceed or did not respond 06/05/2022 08/04/2022 1 1 Chief Complaint and Reason for Visit Chief Complaint RIGHT SHOULDER PAIN Chief Complaint RIGHT SHOULDER PAIN BACK PAIN/SHOULDER Chief Complaint RIGHT SHOULDER PAIN BACK PAIN/SHOULDER SOB Chief Complaint RIGHT SHOULDER PAIN BACK PAIN/SHOULDER SOB PALPITATIONS Chief Complaint EDEMA Chief Complaint 6 M FU N/T Reason for Visit Intermittent palpita tions Chief Complaint sob Chief Complaint Admit Date 6 M FU June 13, 2024 1:5 8pm INT LAB ORDERS June 13, 2024 3:0 3pm Reason for Visit Admit Date Fatigue June 13, 2024 1:5 8pm Hypothyroid June 13, 2024 1:5 8pm Intermittent palpitations June 13 1:58pm Chief Complaint Admit Date 6 M FU June 13, 2024 1:5 8pm INT LAB ORDERS June 13, 2024 3:0 3pm Annual (SODA DISPENSER) July 25, 2024 12: 19pm RIGHT SHOULDER September 16, 2024 2:04 pm Reason for Visit Admit Date Fatigue June 13, 2024 1:5 8pm Hypothyroid June 13, 2024 1:5 8pm Intermittent palpitations June 13 1:58pm Vaginal odor July 25, 2024 12: 19pm Encounter for routine gynecological exam ination July 25, 2024 12:19pm Right shoulder pain September 16, 2024 2:04 pm Additional Source Comments INFORMATION SOURCE (unrecogn ized section and content) DATE CREATED AUTHOR 07/03/2020 [facility] DATE CREATED AUTHOR AUTHOR'S RUSHIZ ATION 06/09/2021 [facility] DATE CREATED AUTHOR AUTHOR'S ORGANIZ ATION 09/10/2022 [facility] DATE CREATED AUTHOR AUTHOR'S ORGANIZ ATION 08/26/2024 [facility] DATE CREATED AUTHOR AUTHOR'S ORGANIZ ATION 09/13/2024 Arnoldo Pardo [facility] DATE CREATED AUTHOR AUTHOR'S ORGANIZ ATION 09/23/2024 [facility] Reason for Visit (unrecogniz ed section and content) Reason Comments PT Discharge Specialty Diagnoses / Procedures Referred By Contac t Referred To Contact [facility] Diagnoses Chest wall pain Procedures PT REHAB FOLLOW UP ORDER PT REHAB FOLLOW UP ORDER THERAPEUTIC EXERCISES RE, EA 15 MIN. Darvin Valencia, YVON [facility] [place] [address] [place] [address] Referral ID Status Reason Start Date Expiration Date Visits Requested Visits Authorized [id number] Authorized PCP Requested Referral Auto-Generate d Referral 12/19/2021 02/18/2022 16 16 Specialty Diagnoses / Procedures Referred By Contac t Referred To Contact Rheumatology Diagnoses Arthralgia, unspecified joint Elevated sed rate CRP elevated Power Escamilla, THEORETICAL PHYSICIST [address] [place] [address] Esvin Correa MD [address] [place] [id number] Referral ID Status Reason Start Date Expiration Date V isits Requested Visits Authorized [id number] Pending Review 03/07/2021 03/07/2022 1 1 Reason Comments Sore Throat with prior vomiting and fever, cough x5 days Reason Comments swelling in hands and ankles X 2 weeks Reason Comments Recheck heart rate and swoll en ankles Reason Comments Patient Education Assessment Specialty Diagnoses / Procedures Referred By Contac t Referred To Contact Nutrition Diagnoses Obesity, Class III, BMI 40-49.9 (morbid obesity) (HCC) Procedures CONSULT TO NUTRITION THERAPY OFFICE/OUTPATIENT NEW HIGH MDM 60-74 MINUTES Power Escamilla APRN.THEORETICAL PHYSICIST, DNP [address] [place] [address] Referral ID Status Reason Start Date Expiration Date V isits Requested Visits Authorized [id number] Closed PCP Requested Referral 07/12/2021 07/12/2022 1 [...] HIGH COMPLEX 45 MINS Rene Doherty MD [address] [place] [address] [facility] [place] [address] [place] [address] Referral ID Status Reason Start Date Expiration Date Visits Re quested Visits Authorized [id number] Closed 12/18/2021 03/29/2022 1 1 Reason Onset Date Comments Opened In Error 12/20/2021 Reason Comments Physical Therapy Reason Comments New Patient Tachycardia Specialty Diagnoses / Procedures Referred By Contac t Referred To Contact Cardiology Diagnoses Tachycardia Procedures CONSULT TO CARDIOLOGY OFFICE/OUTPATIENT [facility] 60-74 MINUTES Mary Hardin APRN.THEORETICAL PHYSICIST [address] [place] [address] Referral ID Status Reason Start Date Expiration Date V isits Requested Visits Authorized [id number] Closed PCP Requested Referral 09/16/2021 09/16/2022 1 1 Reason Comments Follow Up Reason Comments Edema Reason Comments Cough Reason Comments Orders Genetic Testing - Fa milial Variant Testing (MYBPC3) Specialty Diagnoses / Procedures Referred By Contac t Referred To Contact Rheumatology Diagnoses Finger swelling Swelling of both hands Elevated sed rate Procedures CONSULT TO RHEUM/IMMUN DISEASE OFFICE/OUTPATIENT [facility] 60-74 MINUTES Rene Doherty MD [address] [place] [address] Referral ID Status Reason Start Date Expiration Date V isits Requested Visits Authorized [id number] Closed PCP Requested Referral 05/06/2022 05/06/2023 1 [...] (HCC) Procedures CONSULT TO VASCULAR MEDICINE OFFICE/OUTPATIENT NEW HIGH MDM 60-74 MINUTES Lucy Van MD [address] [place] [id number] Referral ID Status Reason Start Date Expiration Date V isits Requested Visits Authorized [id number] Closed PCP Requested Referral 05/23/2022 05/23/2023 1 1 Reason Comments New Patient Abnormal imaging Reason Comments Results Genetic Testing for Familial MYBPC3 Variant - NEGATIVE Reason Comments ER F/U [facility] ER follow up- di scuss thyroid medication Reason Comments Spirometry Specialty Diagnoses / Procedures Referred By Contac t Referred To Contact [facility] Diagnoses Wheezing Procedures SPIROMETRY WITH DILATOR IF OBSTRUCTED BRNCDILAT RSPSE SPMTRY PRE&POST-BRNCDILAT Evelia Dawkins MD [address] [place] [address] [facility] [place] [facility] [place] [address] Referral ID Status Reason Start Date Expiration Date V isits Requested Visits Authorized [id number] Closed Auto-Generate d Referral 06/05/2022 07/05/2023 1 1 Reason Comments Wheezing Reason Comments Patient Question Reason Comments Results Discuss results of C T Reason Comments Consult GERD and bilateral a xillary lymphadenopathy Specialty Diagnoses / Procedures Referred By Contac t Referred To Contact General Surgery Diagnoses GERD without esophagitis Lymphadenopathy, axillary Pain in axilla, unspecified laterality Procedures CONSULT TO GENERAL SURGERY OFFICE/OUTPATIENT NEW [facility] MDM 60-74 MINUTES Rene Doherty MD [address] [place] [address] Referral ID Status Reason Start Date Expiration Date V isits Requested Visits Authorized [id number] Closed PCP Requested Referral 06/23/2022 06/23/2023 1 1 Reason Comments Follow Up Specialty Diagnoses / Procedures Referred By Contac t Referred To Contact [facility] Diagnoses Swelling of both hands Secondary lymphedema Leg swelling Procedures CONSULT TO LYMPHEDEMA THERAPY OFFICE/OUTPATIENT [facility] 60-74 MINUTES Nilseh Garduno DO [address] [place] [address] [facility] [place] [address] [place] [address] Referral ID Status Reason Start Date Expiration Date V isits Requested Visits Authorized [id number] Closed Auto-Generate d Referral 06/02/2022 06/02/2023 1 1 Reason Comments Release Of Medical Records Reason Comments Salivary cortisolkits\ Reason Comments Obesity Thyroid Problem Specialty Diagnoses / Procedures Referred By Contac t Referred To Contact Endocrinology Diagnoses Weight gain Hypothyroidism, unspecified type Malaise and fatigue Pain in joint, multiple sites Enlarged lymph node Procedures CONSULT TO ENDOCRINOLOGY OFFICE/OUTPATIENT [facility] 60-74 MINUTES Lucy Van MD [address] [place] [address] Referral ID Status Reason Start Date Expiration Date V isits Requested Visits Authorized [id number] Closed PCP Requested Referral 08/22/2022 08/22/2023 1 1 Reason Comments Follow Up EGD Reason Comments Refill Request Reason Comments Patient Question Shocking feeling in body Reason Onset Date Comments Refill Request 12/31/2022 Specialty Diagnoses / Procedures Referred By Contac t Referred To Contact Cardiology / CARD ADMIN COUNTS INCLUDE 234 BEDS AT [facility] Diagnoses 6 month follow up - ok to db Procedures EST PATIENT Self Raeann Interiano MD [address] [place] [address] Referral ID Status Reason Start Date Expiration Date V isits Requested Visits Authorized [id number] Waiting for Response 01/12/2023 04/12/2023 1 1 Reason Comments Radiology US Specialty Diagnoses / Procedures Referred By Contac t Referred To Contact BR IMAGING Diagnoses Lymphadenopathy, axillary Procedures US BREAST LTD LEFT US BREAST UNI REAL TIME WITH IMAGE LIMITED Rene Doherty MD [address] [place] [address] [facility] [address] [place] [phone] Referral ID Status Reason Start Date Expiration Date V isits Requested Visits Authorized [id number] Closed Auto-Generate d Referral 09/24/2022 07/24/2023 1 [address] Specialty Diagnoses / Procedures Referred By Contac t Referred To Contact CT IMAGING Diagnoses Abnormal finding on imaging Ground glass opacity present on imaging of lung Procedures CT CHEST WO IVCON DIAGNOSTIC COMPUTED TOMOGRAPHY THORAX W/O CNTKIRSTYT Evelia Tompkins MD [address] [facility] [place] [id number] [facility] [place] [address] Referral ID Status Reason Start Date Expiration Date V isits Requested Visits Authorized [id number] Closed Auto-Generat ed Referral Patient Cleared - [...] TIME WITH IMAGE LIMITED Rene Doherty MD [address] [place] [address] [facility] [address] [place] [address] Referral ID Status Reason Start Date Expiration Date V isits Requested Visits Authorized [id number] Closed Auto-Generate d Referral 06/23/2022 07/23/2023 1 1 Reason Onset Date Comments Refill Request 05/15/2023 Reason Onset Date Comments Refill Request 07/12/2023 Reason Onset Date Comments Refill Request 08/18/2023 Reason Onset Date Comments Refill Request 12/28/2023 Reason Onset Date Comments Refill Request 05/27/2024 Reason Comments Ear Pain Left ear pain and GORDON x 1 week Care Teams (unrecognized sec tion and content) Bioinformatics Technician Relationship Specialty Start Date End Date Rene Doherty MD [address] [place] [address] PCP - General Family Medicine 05/06/21 Bioinformatics Technician Relationship Specialty Start Date End Date Rene Doherty MD [address] [facility] [place] [address] PCP - General Family Practice 02/27/21 Bioinformatics Technician Relationship Specialty Start Date End Date Rene Doherty MD [address] [facility] [address] PCP - General Family Practice 02/27/21 Bioinformatics Technician Relationship Specialty Start Date End Date Rene Doherty MD [address] [place] [address] PCP - General Family Practice 02/27/21 Bioinformatics Technician Relationship Specialty Start Date End Date Rene Doherty MD [facility] [place] [address] PCP - General Family Practice 02/27/21 Bioinformatics Technician Relationship Specialty Start Date End Date Rene Doherty MD [address] [facility] [place] [address] PCP - General Family Practice 02/27/21 Bioinformatics Technician Relationship Specialty Start Date End Date Rene Doherty MD [address] [facility] [place] [address] PCP - General Family Practice 02/27/21 Bioinformatics Technician Relationship Specialty Start Date End Date Rene Doherty MD [address] [facility] [address] PCP - General Family Practice 02/27/21 Bioinformatics Technician Relationship Specialty Start Date End Date Rene Doherty MD [address] [facility] [place] [address] PCP - General Family Practice 02/27/21 Bioinformatics Technician Relationship Specialty Start Date End Date Rene Doherty MD [address] [facility] [place] [address] PCP - General Family Practice 02/27/21 Bioinformatics Technician Relationship Specialty Start Date End Date Rene Doherty MD [address] [facility] [place] [address] PCP - General Family Practice 02/27/21 Bioinformatics Technician Relationship Specialty Start Date End Date Rene Doherty MD [address] [place] [address], [place] [address] PCP - General Family Practice 02/27/21 Bioinformatics Technician Relationship Specialty Start Date End Date Rene Doherty MD [address] [place] [address], [place] [address] PCP - General Family Medicine 02/27/21 Bioinformatics Technician Relationship Specialty Start Date End Date Rene Doherty MD [address] [place] [address], [place] [address] PCP - General Family Medicine 02/27/21 Bioinformatics Technician Relationship Specialty Start Date End Date Rene Doherty MD [address] [place] [address], [place] [address] PCP - General Family Medicine 02/27/21 Bioinformatics Technician Relationship Specialty Start Date End Date Rene Doherty MD [address] [place] [address], [place] [address] PCP - General Family Medicine 02/27/21 Bioinformatics Technician Relationship Specialty [place] [address] [place] [address], [place] [address] PCP - General Family Medicine 02/27/21 Bioinformatics Technician Relationship Specialty Start Date End Date Rene Doherty MD [address] [place] [address], [place] [address] PCP - General Family Medicine 02/27/21 Bioinformatics Technician Relationship Specialty Start Date End Date Rene Doherty MD [address] [facility] [place] [address] PCP - General Family Medicine 02/27/21 Bioinformatics Technician Relationship Specialty Start Date End Date Rene Doherty MD [address] [facility] [place] [address] PCP - General Family Medicine 02/27/21 Bioinformatics Technician Relationship Specialty Start Date End Date Rene Doherty MD [address] [facility] [place] [address] PCP - General Family Medicine 02/27/21 Bioinformatics Technician Relationship Specialty Start Date End Date Rene Doherty MD [address] [place] [address], [place] [address] PCP - General Family Medicine 02/27/21 Bioinformatics Technician Relationship Specialty Start Date End Date Rene Doherty MD [address] [place] [address], [place] [address] PCP - General Family Medicine 02/27/21 Bioinformatics Technician Relationship Specialty Start Date End Date Rene Doherty MD [address] [facility] [place] [address] PCP - General Family Medicine 02/27/21 Bioinformatics Technician Relationship Specialty Start Date End Date Rene Doherty MD [facility] [address] PCP - General Family Medicine 02/27/21 Bioinformatics Technician Relationship Specialty Start Date End Date Rene Doherty MD [address] [facility] [place] [address] PCP - General Family Medicine 02/27/21 Bioinformatics Technician Relationship Specialty Start Date End Date Rene Doherty MD [facility] [place] [address] PCP - General Family Medicine 02/27/21 Bioinformatics Technician Relationship Specialty Start Date End Date Rene Doherty MD [address] [facility] [address] PCP - General Family Medicine 02/27/21 Bioinformatics Technician Relationship Specialty Start Date End Date Rene Doherty MD [address] [facility] [place] [address] PCP - General Family Medicine 02/27/21 Team Status: Active Member Role Status Dates Gisela Noriega ROLL OVER LOADER, ROLL OVER LOADER-C Family Provider Active Dr. Rene Doherty MD Primary Care Provider Active Team Status: Inactive Member Role Status Dates Dr. Rene Doherty MD Primary Care Provider Active Dr. Karlos Patterson MD Emergency Provider Active Bioinformatics Technician Relationship Specialty Start Date End Date Rene Doherty MD [address] [facility] [place] [address] PCP - General Family Medicine 02/27/21 Bioinformatics Technician Relationship Specialty Start Date End Date Rene Doherty MD [address] [facility] [place] [address] PCP - General Family Medicine 02/27/21 Bioinformatics Technician Relationship Specialty Start Date End Date Rene Doherty MD [address] [facility] [place] [address] PCP - General Family Medicine 02/27/21 Bioinformatics Technician Relationship Specialty Start Date End Date Rene Doherty MD [address] [facility] [place] [address] PCP - General Family Medicine 02/27/21 Bioinformatics Technician Relationship Specialty Start Date End Date Rene Doherty MD [address] [facility] [place] [address] PCP - General Family Medicine 02/27/21 Bioinformatics Technician Relationship Specialty Start Date End Date Rene Doherty MD [address] [facility] [place] [address] PCP - General Family Medicine 02/27/21 Bioinformatics Technician Relationship Specialty Start Date End Date Rene Doherty MD [address] [facility] [place] [address] PCP - General Family Medicine 02/27/21 Bioinformatics Technician Relationship Specialty Start Date End Date Rene Doherty MD [address] [facility] [place] [address] PCP - General Family Medicine 02/27/21 Bioinformatics Technician Relationship Specialty Start Date End Date Rene Doherty MD [address] [facility] [place] [address] PCP - General Family Medicine 02/27/21 Bioinformatics Technician Relationship Specialty Start Date End Date Rene Doherty MD [address] [facility] [place] [address] PCP - General Family Medicine 02/27/21 Bioinformatics Technician Relationship Specialty Start Date End Date Rene Doherty MD [address] [facility] [place] [address] PCP - General Family Medicine 02/27/21 Bioinformatics Technician Relationship Specialty Start Date End Date Rene Doherty MD [address] [facility] [place] [address] PCP - General Family Medicine 02/27/21 Team Status: Inactive Member Role Status Dates Dr. Rene Doherty MD Primary Care Provider, Referring Provider Active Ale Everett NP, ROLL OVER LOADER-C Attending Provider Active Team Status: Inactive Member Role Status Dates Dr. Rene Doherty MD Primary Care Provider Active Batool Ramesh NP-C Attending Provider Active Team Status: Inactive Member Role Status Dates Dr. Rene Doherty MD Primary Care Provider Active Dr. Karlos Patterson MD Attending Provider, Emergency Provi gautam Active Bioinformatics Technician Relationship Specialty Start Date End Date Rene Doherty MD [address] [facility] [place] [address] PCP - General Family Medicine 02/27/21 Bioinformatics Technician Relationship Specialty Start Date End Date Rene Doherty MD [address] [place], [place] [address] PCP - General Family Medicine 02/27/21 Bioinformatics Technician Relationship Specialty Start Date End Date Rene Doherty MD [address] [place], [place] [address] PCP - General Family Medicine 02/27/21 Bioinformatics Technician Relationship Specialty Start Date End Date Rene Doherty MD [address] [place] [address] PCP - General Family Medicine 02/27/21 Bioinformatics Technician Relationship Specialty Start Date End Date Rene Doherty MD [address] [place] [address] PCP - General Family Medicine 02/27/21 Bioinformatics Technician Relationship Specialty Start Date End Date Rene Doherty MD [address] [place] [address] PCP - General Family Medicine 02/27/21 Bioinformatics Technician Relationship Specialty Start Date End Date Rene Doherty MD [address] [place] [address] PCP - General Family Medicine 02/27/21 Bioinformatics Technician Relationship Specialty Start Date End Date Rene Doherty MD [address] [place], [place] [address] PCP - General Family Medicine 02/27/21 Bioinformatics Technician Relationship Specialty Start Date End Date Rene Doherty MD [address] [place], [place] [address] PCP - General Family Medicine 02/27/21 Bioinformatics Technician Relationship Specialty Start Date End Date Rene Doherty MD [address] [facility] [place] [address] PCP - General Family Medicine 02/27/21 Bioinformatics Technician Relationship Specialty Start Date End Date Rene Doherty MD [address] [facility] [place] [address] PCP - General Family Medicine 02/27/21 Team Status: Inactive Member Role Status Dates Dr. Rene Doherty MD Primary Care Provider Active Dr. González Richard DO Emergency Provider Active Bioinformatics Technician Relationship Specialty Start Date End Date Rene Doherty MD [address] [facility] [place] [address] PCP - General Family Medicine 02/27/21 Bioinformatics Technician Relationship Specialty Start Date End Date Rene Doherty MD [address] [facility] [place] [address] PCP - General Family Medicine 02/27/21 Bioinformatics Technician Relationship Specialty Start Date End Date Rene Doherty MD [address] [facility] [place] [address] PCP - General Family Medicine 02/27/21 Bioinformatics Technician Relationship Specialty Start Date End Date Rene Doherty MD [address] [facility] [place] [address] PCP - General Family Medicine 02/27/21 Bioinformatics Technician Relationship Specialty Start Date End Date Rene Doherty MD [address] [facility] [place] [address] PCP - General Family Medicine 02/27/21 Bioinformatics Technician Relationship Specialty Start Date End Date Rene Doherty MD [address] [facility] [place], [place] [address] PCP - General Family Medicine 02/27/21 Bioinformatics Technician Relationship Specialty Start Date End Date eRne Doherty MD [address] [facility] [place], [place] [id number] PCP - General Family Medicine 02/27/21 Mary Hardin APRN.THEORETICAL PHYSICIST [address] [place], [place] [address] [facility] 03/07/24 Ashanti Washington APRN.THEORETICAL PHYSICIST [address] [place], [place] [id number] [facility] 03/07/24 Team Status: Active Member Role Status Dates No Primary Care Physician Primary Care Provider Active Team Status: Inactive Member Role Status Dates Dr. Rene Doherty MD Referring Provider Active Start: June 13, 2024 End: June 13, 2024 Juan Jose Jefferson ROLL OVER LOADER, ROLL OVER LOADER-C Attending Provider Active S tart: June 13, 2024 End: June 13, 2024 No Primary Care Physician Primary Care Provider Active Start: June 13, 2024 End: June 13, 2024 Team Status: Inactive Member Role Status Dates No Primary Care Physician Primary Care Provider Active Start: June 13, 2024 End: June 13, 2024 Juan Jose Jefferson ROLL OVER LOADER, ROLL OVER LOADER-C Attending Provider Active S tart: June 13, 2024 End: June 13, 2024 Juan Jose Jefferson ROLL OVER LOADER, ROLL OVER LOADER-C Referring Provider Active S tart: June 13, 2024 End: June 13, 2024 Bioinformatics Technician Relationship Specialty Start Date End Date Rene Doherty MD [address] [place], [place] [id number] PCP - General Family Medicine 02/27/21 Mary Hardin, BALANCE BRIDGE INSPECTOR.THEORETICAL PHYSICIST [address] [facility] [place] [address] [facility] 03/07/24 Ashanti Washington APRN.THEORETICAL PHYSICIST [address] [facility] [place] [address] [facility] [facility] 03/[facility]24 Bioinformatics Technician Relationship Specialty Start Date End Date Ana Laura Johnson DO [address] [facility] [address] [place], [place] [id number] PCP - General Internal Medicine 08/19/24 Mary Hardin, BALANCE BRIDGE INSPECTOR.THEORETICAL PHYSICIST [address] [place] [address] [facility] 03/07/24 Ashanti Washington BALANCE BRIDGE INSPECTOR.THEORETICAL PHYSICIST [address] [facility] [place], [place] [id number] [facility] 03/07/24 Team Status: Inactive Member Role Status Dates Dr. Rene Doherty MD Referring Provider Active Start: July 25, 2024 End: July 25, 2024 Ale Sousa CNM Attending Provider Active S tart: July 25, 2024 End: July 25, 2024 No Primary Care Physician Primary Care Provider Active Start: July 25, 2024 End: July 25, 2024 Team Status: Inactive Member Role Status Dates No Primary Care Physician Primary Care Provider Active Start: July 25, 2024 End: July 25, 2024 Ale Sousa CNM Attending Provider Active S tart: July 25, 2024 End: July 25, 2024 Ale Sousa CNM Referring Provider Active S tart: July 25, 2024 End: July 25, 2024 Team Status: Inactive Member Role Status Dates No Primary Care Physician Primary Care Provider Active Start: September 16, 2024 End: September 16, 2024 No Primary Care Physician Referring Provider Active Start: September 16, 2024 End: September 16, 2024 Espinoza Hernadez MD Attending Provider Active St art: September 16, 2024 End: September 16, 2024 Source Comments (unrecognize d section and content) In the event this informatio n is protected by the Federal Confidentiality of Alcohol and Drug Abuse Patient Records regulations: The Federal rules restrict any use of the information to criminally investigate or prosecute any alcohol or drug abuse patient.[facility] the event this information is protected by the Federal Confidentiality of Alcohol and Drug Abuse Patient Records regulations: The Federal rules restrict any use of the information to criminally investigate or prosecute any alcohol or drug abuse patient.[facility] the event this information is protected by the Federal Confidentiality of Alcohol and Drug Abuse Patient Records regulations: The Federal rules restrict any use of the information to criminally investigate or prosecute any alcohol or drug abuse patient.[facility]In the event this information is protected by the Federal Confidentiality of Alcohol and Drug Abuse Patient Records regulations: The Federal rules restrict any use of the information to criminally investigate or prosecute any alcohol or drug abuse patient.[facility]In the event this information is protected by the Federal Confidentiality of Alcohol and Drug Abuse Patient Records regulations: The Federal rules restrict any use of the information to criminally investigate or prosecute any alcohol or drug abuse patient.[facility]In the event this information is protected by the Federal Confidentiality of Alcohol and Drug Abuse Patient Records regulations: The Federal rules restrict any use of the information to criminally investigate or prosecute any alcohol or drug abuse patient.[facility]In the event this information is protected by the Federal Confidentiality of Alcohol and Drug Abuse Patient Records regulations: The Federal rules restrict any use of the information to criminally investigate or prosecute any alcohol or drug abuse patient.[facility]In the event this information is protected by the Federal Confidentiality of Alcohol and Drug Abuse Patient Records regulations: The Federal rules restrict any use of the information to criminally investigate or prosecute any alcohol or drug abuse patient.[facility]In the event this information is protected by the Federal Confidentiality of Alcohol and Drug Abuse Patient Records regulations: The Federal rules restrict any use of the information to criminally investigate or prosecute any alcohol or drug abuse patient.[facility]In the event this information is protected by the Federal Confidentiality of Alcohol and Drug Abuse Patient Records regulations: The Federal rules restrict any use of the information to criminally investigate or prosecute any alcohol or drug abuse patient.[facility]In the event this information is protected by the Federal Confidentiality of Alcohol and Drug Abuse Patient Records regulations: The Federal rules restrict any use of the information to criminally investigate or prosecute any alcohol or drug abuse patient.[facility]In the event this information is protected by the Federal Confidentiality of Alcohol and Drug Abuse Patient Records regulations: The Federal rules restrict any use of the information to criminally investigate or prosecute any alcohol or drug abuse patient.[facility]In the event this information is protected by the Federal Confidentiality of Alcohol and Drug Abuse Patient Records regulations: The Federal rules restrict any use of the information to criminally investigate or prosecute any alcohol or drug abuse patient.[facility]In the event this information is protected by the Federal Confidentiality of Alcohol and Drug Abuse Patient Records regulations: The Federal rules restrict any use of the information to criminally investigate or prosecute any alcohol or drug abuse patient.[facility]In the event this information is protected by the Federal Confidentiality of Alcohol and Drug Abuse Patient Records regulations: The Federal rules restrict any use of the information to criminally investigate or prosecute any alcohol or drug abuse patient.[facility] HospitalIn the event this information is protected by the Federal Confidentiality of Alcohol and Drug Abuse Patient Records regulations: The Federal rules restrict any use of the information to criminally investigate or prosecute any alcohol or drug abuse patient.[facility] HospitalIn the event this information is protected by the Federal Confidentiality of Alcohol and Drug Abuse Patient Records regulations: The Federal rules restrict any use of the information to criminally investigate or prosecute any alcohol or drug abuse patient.[facility] HospitalIn the event this information is protected by the Federal Confidentiality of Alcohol and Drug Abuse Patient Records regulations: The Federal rules restrict any use of the information to criminally investigate or prosecute any alcohol or drug abuse patient.[facility] HospitalIn the event this information is protected by the Federal Confidentiality of Alcohol and Drug Abuse Patient Records regulations: The Federal rules restrict any use of the information to criminally investigate or prosecute any alcohol or drug abuse patient.[facility] HospitalIn the event this information is protected by the Federal Confidentiality of Alcohol and Drug Abuse Patient Records regulations: The Federal rules restrict any use of the information to criminally investigate or prosecute any alcohol or drug abuse patient.[facility] HospitalIn the event this information is protected by the Federal Confidentiality of Alcohol and Drug Abuse Patient Records regulations: The Federal rules restrict any use of the information to criminally investigate or prosecute any alcohol or drug abuse patient.[facility] HospitalIn the event this information is protected by the Federal Confidentiality of Alcohol and Drug Abuse Patient Records regulations: The Federal rules restrict any use of the information to criminally investigate or prosecute any alcohol or drug abuse patient.[facility] HospitalIn the event this information is protected by the Federal Confidentiality of Alcohol and Drug Abuse Patient Records regulations: The Federal rules restrict any use of the information to criminally investigate or prosecute any alcohol or drug abuse patient.[facility]In the event this information is protected by the Federal Confidentiality of Alcohol and Drug Abuse Patient Records regulations: The Federal rules restrict any use of the information to criminally investigate or prosecute any alcohol or drug abuse patient.[facility]In the event this information is protected by the Federal Confidentiality of Alcohol and Drug Abuse Patient Records regulations: The Federal rules restrict any use of the information to criminally investigate or prosecute any alcohol or drug abuse patient.[facility] HospitalIn the event this information is protected by the Federal Confidentiality of Alcohol and Drug Abuse Patient Records regulations: The Federal rules restrict any use of the information to criminally investigate or prosecute any alcohol or drug abuse patient.[facility]In the event this information is protected by the Federal Confidentiality of Alcohol and Drug Abuse Patient Records regulations: The Federal rules restrict any use of the information to criminally investigate or prosecute any alcohol or drug abuse patient.[facility]In the event this information is protected by the Federal Confidentiality of Alcohol and Drug Abuse Patient Records regulations: The Federal rules restrict any use of the information to criminally investigate or prosecute any alcohol or drug abuse patient.[facility] HospitalIn the event this information is protected by the Federal Confidentiality of Alcohol and Drug Abuse Patient Records regulations: The Federal rules restrict any use of the information to criminally investigate or prosecute any alcohol or drug abuse patient.[facility]In the event this information is protected by the Federal Confidentiality of Alcohol and Drug Abuse Patient Records regulations: The Federal rules restrict any use of the information to criminally investigate or prosecute any alcohol or drug abuse patient.[facility] HospitalIn the event this information is protected by the Federal Confidentiality of Alcohol and Drug Abuse Patient Records regulations: The Federal rules restrict any use of the information to criminally investigate or prosecute any alcohol or drug abuse patient.[facility] HospitalIn the event this information is protected by the Federal Confidentiality of Alcohol and Drug Abuse Patient Records regulations: The Federal rules restrict any use of the information to criminally investigate or prosecute any alcohol or drug abuse patient.[facility] HospitalIn the event this information is protected by the Federal Confidentiality of Alcohol and Drug Abuse Patient Records regulations: The Federal rules restrict any use of the information to criminally investigate or prosecute any alcohol or drug abuse patient.[facility] HospitalIn the event this information is protected by the Federal Confidentiality of Alcohol and Drug Abuse Patient Records regulations: The Federal rules restrict any use of the information to criminally investigate or prosecute any alcohol or drug abuse patient.[facility] HospitalIn the event this information is protected by the Federal Confidentiality of Alcohol and Drug Abuse Patient Records regulations: The Federal rules restrict any use of the information to criminally investigate or prosecute any alcohol or drug abuse patient.[facility]In the event this information is protected by the Federal Confidentiality of Alcohol and Drug Abuse Patient Records regulations: The Federal rules restrict any use of the information to criminally investigate or prosecute any alcohol or drug abuse patient.[facility] HospitalIn the event this information is protected by the Federal Confidentiality of Alcohol and Drug Abuse Patient Records regulations: The Federal rules restrict any use of the information to criminally investigate or prosecute any alcohol or drug abuse patient.[facility] HospitalIn the event this information is protected by the Federal Confidentiality of Alcohol and Drug Abuse Patient Records regulations: The Federal rules restrict any use of the information to criminally investigate or prosecute any alcohol or drug abuse patient.[facility] HospitalIn the event this information is protected by the Federal Confidentiality of Alcohol and Drug Abuse Patient Records regulations: The Federal rules restrict any use of the information to criminally investigate or prosecute any alcohol or drug abuse patient.[facility] HospitalIn the event this information is protected by the Federal Confidentiality of Alcohol and Drug Abuse Patient Records regulations: The Federal rules restrict any use of the information to criminally investigate or prosecute any alcohol or drug abuse patient.[facility] HospitalIn the event this information is protected by the Federal Confidentiality of Alcohol and Drug Abuse Patient Records regulations: The Federal rules restrict any use of the information to criminally investigate or prosecute any alcohol or drug abuse patient.[facility] HospitalIn the event this information is protected by the Federal Confidentiality of Alcohol and Drug Abuse Patient Records regulations: The Federal rules restrict any use of the information to criminally investigate or prosecute any alcohol or drug abuse patient.[facility] HospitalIn the event this information is protected by the Federal Confidentiality of Alcohol and Drug Abuse Patient Records regulations: The Federal rules restrict any use of the information to criminally investigate or prosecute any alcohol or drug abuse patient.[facility] HospitalIn the event this information is protected by the Federal Confidentiality of Alcohol and Drug Abuse Patient Records regulations: The Federal rules restrict any use of the information to criminally investigate or prosecute any alcohol or drug abuse patient.[facility] HospitalIn the event this information is protected by the Federal Confidentiality of Alcohol and Drug Abuse Patient Records regulations: The Federal rules restrict any use of the information to criminally investigate or prosecute any alcohol or drug abuse patient.[facility] HospitalIn the event this information is protected by the Federal Confidentiality of Alcohol and Drug Abuse Patient Records regulations: The Federal rules restrict any use of the information to criminally investigate or prosecute any alcohol or drug abuse patient.[facility] HospitalIn the event this information is protected by the Federal Confidentiality of Alcohol and Drug Abuse Patient Records regulations: The Federal rules restrict any use of the information to criminally investigate or prosecute any alcohol or drug abuse patient.[facility] HospitalIn the event this information is protected by the Federal Confidentiality of Alcohol and Drug Abuse Patient Records regulations: The Federal rules restrict any use of the information to criminally investigate or prosecute any alcohol or drug abuse patient.[facility] HospitalIn the event this information is protected by the Federal Confidentiality of Alcohol and Drug Abuse Patient Records regulations: The Federal rules restrict any use of the information to criminally investigate or prosecute any alcohol or drug abuse patient.[facility] HospitalIn the event this information is protected by the Federal Confidentiality of Alcohol and Drug Abuse Patient Records regulations: The Federal rules restrict any use of the information to criminally investigate or prosecute any alcohol or drug abuse patient.[facility] HospitalIn the event this information is protected by the Federal Confidentiality of Alcohol and Drug Abuse Patient Records regulations: The Federal rules restrict any use of the information to criminally investigate or prosecute any alcohol or drug abuse patient.[facility] HospitalIn the event this information is protected by the Federal Confidentiality of Alcohol and Drug Abuse Patient Records regulations: The Federal rules restrict any use of the information to criminally investigate or prosecute any alcohol or drug abuse patient.[facility] HospitalIn the event this information is protected by the Federal Confidentiality of Alcohol and Drug Abuse Patient Records regulations: The Federal rules restrict any use of the information to criminally investigate or prosecute any alcohol or drug abuse patient.[facility] HospitalIn the event this information is protected by the Federal Confidentiality of Alcohol and Drug Abuse Patient Records regulations: The Federal rules restrict any use of the information to criminally investigate or prosecute any alcohol or drug abuse patient.[facility]In the event this information is protected by the Federal Confidentiality of Alcohol and Drug Abuse Patient Records regulations: The Federal rules restrict any use of the information to criminally investigate or prosecute any alcohol or drug abuse patient.[facility] HospitalIn the event this information is protected by the Federal Confidentiality of Alcohol and Drug Abuse Patient Records regulations: The Federal rules restrict any use of the information to criminally investigate or prosecute any alcohol or drug abuse patient.[facility] HospitalIn the event this information is protected by the Federal Confidentiality of Alcohol and Drug Abuse Patient Records regulations: The Federal rules restrict any use of the information to criminally investigate or prosecute any alcohol or drug abuse patient.[facility]In the event this information is protected by the Federal Confidentiality of Alcohol and Drug Abuse Patient Records regulations: The Federal rules restrict any use of the information to criminally investigate or prosecute any alcohol or drug abuse patient.[facility]In the event this information is protected by the Federal Confidentiality of Alcohol and Drug Abuse Patient Records regulations: The Federal rules restrict any use of the information to criminally investigate or prosecute any alcohol or drug abuse patient.[facility]In the event this information is protected by the Federal Confidentiality of Alcohol and Drug Abuse Patient Records regulations: The Federal rules restrict any use of the information to criminally investigate or prosecute any alcohol or drug abuse patient.[facility] HospitalIn the event this information is protected by the Federal Confidentiality of Alcohol and Drug Abuse Patient Records regulations: The Federal rules restrict any use of the information to criminally investigate or prosecute any alcohol or drug abuse patient.[facility] HospitalIn the event this information is protected by the Federal Confidentiality of Alcohol and Drug Abuse Patient Records regulations: The Federal rules restrict any use of the information to criminally investigate or prosecute any alcohol or drug abuse patient.[facility] HospitalIn the event this information is protected by the Federal Confidentiality of Alcohol and Drug Abuse Patient Records regulations: The Federal rules restrict any use of the information to criminally investigate or prosecute any alcohol or drug abuse patient.[facility] HospitalIn the event this information is protected by the Federal Confidentiality of Alcohol and Drug Abuse Patient Records regulations: The Federal rules restrict any use of the information to criminally investigate or prosecute any alcohol or drug abuse patient.[facility] HospitalIn the event this information is protected by the Federal Confidentiality of Alcohol and Drug Abuse Patient Records regulations: The Federal rules restrict any use of the information to criminally investigate or prosecute any alcohol or drug abuse patient.[facility] HospitalIn the event this information is protected by the Federal Confidentiality of Alcohol and Drug Abuse Patient Records regulations: The Federal rules restrict any use of the information to criminally investigate or prosecute any alcohol or drug abuse patient.[facility] HospitalIn the event this information is protected by the Federal Confidentiality of Alcohol and Drug Abuse Patient Records regulations: The Federal rules restrict any use of the information to criminally investigate or prosecute any alcohol or drug abuse patient.[facility] HospitalIn the event this information is protected by the Federal Confidentiality of Alcohol and Drug Abuse Patient Records regulations: The Federal rules restrict any use of the information to criminally investigate or prosecute any alcohol or drug abuse patient.[facility] HospitalIn the event this information is protected by the Federal Confidentiality of Alcohol and Drug Abuse Patient Records regulations: The Federal rules restrict any use of the information to criminally investigate or prosecute any alcohol or drug abuse patient.[facility] HospitalIn the event this information is protected by the Federal Confidentiality of Alcohol and Drug Abuse Patient Records regulations: The Federal rules restrict any use of the information to criminally investigate or prosecute any alcohol or drug abuse patient.[facility]In the event this information is protected by the Federal Confidentiality of Alcohol and Drug Abuse Patient Records regulations: The Federal rules restrict any use of the information to criminally investigate or prosecute any alcohol or drug abuse patient.[facility]In the event this information is protected by the Federal Confidentiality of Alcohol and Drug Abuse Patient Records regulations: The Federal rules restrict any use of the information to criminally investigate or prosecute any alcohol or drug abuse patient.[facility] HospitalIn the event this information is protected by the Federal Confidentiality of Alcohol and Drug Abuse Patient Records regulations: The Federal rules restrict any use of the information to criminally investigate or prosecute any alcohol or drug abuse patient.[facility]In the event this information is protected by the Federal Confidentiality of Alcohol and Drug Abuse Patient Records regulations: The Federal rules restrict any use of the information to criminally investigate or prosecute any alcohol or drug abuse patient.[facility]In the event this information is protected by the Federal Confidentiality of Alcohol and Drug Abuse Patient Records regulations: The Federal rules restrict any use of the information to criminally investigate or prosecute any alcohol or drug abuse patient.[facility]In the event this information is protected by the Federal Confidentiality of Alcohol and Drug Abuse Patient Records regulations: The Federal rules restrict any use of the information to criminally investigate or prosecute any alcohol or drug abuse patient.[facility]In the event this information is protected by the Federal Confidentiality of Alcohol and Drug Abuse Patient Records regulations: The Federal rules restrict any use of the information to criminally investigate or prosecute any alcohol or drug abuse patient.[facility]In the event this information is protected by the Federal Confidentiality of Alcohol and Drug Abuse Patient Records regulations: The Federal rules restrict any use of the information to criminally investigate or prosecute any alcohol or drug abuse patient.[facility]In the event this information is protected by the Federal Confidentiality of Alcohol and Drug Abuse Patient Records regulations: The Federal rules restrict any use of the information to criminally investigate or prosecute any alcohol or drug abuse patient.[facility]In the event this information is protected by the Federal Confidentiality of Alcohol and Drug Abuse Patient Records regulations: The Federal rules restrict any use of the information to criminally investigate or prosecute any alcohol or drug abuse patient.[facility] HospitalIn the event this information is protected by the Federal Confidentiality of Alcohol and Drug Abuse Patient Records regulations: The Federal rules restrict any use of the information to criminally investigate or prosecute any alcohol or drug abuse patient.[facility] the event this information is protected by the Federal Confidentiality of Alcohol and Drug Abuse Patient Records regulations: The Federal rules restrict any use of the information to criminally investigate or prosecute any alcohol or drug abuse patient.[facility] the event this information is protected by the Federal Confidentiality of Alcohol and Drug Abuse Patient Records regulations: The Federal rules restrict any use of the information to criminally investigate or prosecute any alcohol or drug abuse patient.[facility] the event this information is protected by the Federal Confidentiality of Alcohol and Drug Abuse Patient Records regulations: The Federal rules restrict any use of the information to criminally investigate or prosecute any alcohol or drug abuse patient.[facility] the event this information is protected by the Federal Confidentiality of Alcohol and Drug Abuse Patient Records regulations: The Federal rules restrict any use of the information to criminally investigate or prosecute any alcohol or drug abuse patient.[facility] Goals (unrecognized section and content) Goals may be documented in a n alternate sectionGoals may be documented in an alternate sectionGoals may be documented in an alternate sectionGoals may be documented in an alternate sectionGoals may be documented in an alternate sectionGoals may be documented in an alternate sectionGoals may be documented in an alternate sectionGoals may be documented in an alternate sectionGoals may be documented in an alternate sectionGoals may be documented in an alternate sectionGoals may be documented in an alternate section FOR RECORDS PERTAINING TO PATIENTS WHO ARE [...] BE BASED ON THE PRIMARY CLINICAL RECORDS. [employer] [facility]. provides no warranty or guarantee of the accuracy or completeness of information in this document.
== END | disposition home or self-care (01) ==
LOC: LAB 13:50
PROVIDERS: Referring Provider Nurse Practitioner Family; Visit Provider Nurse Practitioner Family
DX: E03.9 Hypothyroidism, unspecified (principal)
CPT/HCPCS: 36415; 84443

== ENCOUNTER → 2024-11-02 | Outpatient (CLI) | payer MEDICAID, SELFPAY | END | disposition home or self-care (01) | LOC: SL 13:20 | PROVIDERS: PCP Internal Medicine; Referring Provider Internal Medicine; Visit Provider Internal Medicine | DX: G47.10 Hypersomnia, unspecified (principal) | CPT/HCPCS: 95806 ==

== ENCOUNTER 2024-11-15 13:00 | Outpatient (RCR) | payer MEDICAID, SELFPAY ==
--- NOTE | 2024-10-02 23:54 | HP.PTEVAL ---
Patient's Visit Information Visit Information Visit Information: AMANDO MCGEE is a 28 year old F referred to Physical Therapy by Dr. Espinoza Grimes MD with a diagnosis of R SHLD PAIN. Date of Evaluation: 09/29/24 Physical Therapist: Susannah Luu PT, Cert MDT Visit Plan Frequency: 2-3x /Week Duration: 4-6 Weeks Plan: R UE ROM, STRETCHING AND STRENGTHENING TO HELP MEET SET GOALS. MODALITIES NEEDED TO DECREASE PAIN AND INFLAMMATION AND HELP PROMOTE HEALING. USE MANUAL THERAPY, STM, PULLEYS, ISOMETRICS, WAND AND PROGRESS TO BANDS TOLERATED. 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 [place] A LOT. Present symptoms: R SHLD AND SHLD BLADE PAIN. INTERMITTENT R UE PINS AND NEEDLES - WHOLE ARM INCLUDING HAND - AT NIGHT. INTERMITTENT NUMBNESS OF WHOLE ARM DURING THE DAY. PULLING UP INTO NECK TOO. ALSO GETTING HEADACHES. Present since: APPROX August Getting Better, Getting Worse or Staying the Same: GETTING BETTER Pain Scale: Worst - 7/10 Least - 2/10 Currently: 07/07 Commenced as a result of: FALL. GOING INTO THE HOUSE, SANDLE CAUGHT ON BOTTOM STEP, FELL FORWARD LANDING ON FOREARMS. Symptoms at onset: L WRIST PAIN. ABOUT A WK LATER NOTICED DULL PAIN R SHLD Worse: USING R ARM A LOT TO DO DISHES AND OTHER HOUSE WORK. IT WAS REALLY PAINFUL THE OTHER DAY AFTER WASHING DAUGHTERS HAIR. *THE MAIN THING THAT TRIGGERS IT IS DRIVING A LOT* Better: ICE, RELAXING IT ON A PILLOW WHILE SITTING IN RECLINER, TYLON[place], RECENT CORTISONE INJECTION BY DR. GRIMES 09/16/24. Disturbed sleep: YES Previous history/Previous treatment: RCT R 7-8 YEARS AGO TREATED WITH PT. NO SURGERY OR INJECTION. This episode: CORTISONE INJECTION 09/16/24 Dizziness: YES - NOT NEW BUT MIGHT BE WORSE Tinnitus: YES - NOT NEW Nausea: MILD Shortness of Breath: YES - NOT NEW Difficulty Swallowing: NO Gait: NORMAL Accidents: NO Unexplained weight loss: NO Imaging: ED TOOK X-RAYS IN [place] IN AUGUST ABOUT 2 WKS AFTER THE FALL. PMH/Recent major surgery: Right shoulder pain Hives Chronic headache Allergies Chest pain Pes cavus Obesity, Class III, BMI 40-49.9 (morbid obesity) Anxiety and depression Hypothyroid Hx of ovarian cyst Hx of laparoscopy H/O section Objective Objective: ROM deficit: AROM: ACTIVE SHLD FLEX 160 MADY BUT PAIN WITH MVMT RIGHT. ABD 160, ER 60 DEG, IR 40 DEG. Motor deficit: R SHLD FLEX 3-/5, ABD 3-/5, IR 3-/5, ER 3-/5, ELBOW FLEX 3+/5, EXT 4/5, MADY EXAMINATION GRADER STRENGTH 35 LBS. ELBOW FLEX IS PAINFUL AND WEAK IN ADDITION TO SHLD PAIN AND WEAKNESS. SENSATION: PATIENT REPORTS DECREASED LIGHT TOUCH SENSATION OF ENTIRE R UE COMPARED TO L UE WITH TESTING. Reflex's: UNABLE TO ELICIT MADY UE DTR'S Dural Signs: NEGATIVE. Cervical Mvmt Loss: Flex: NIL Pro: NIL Ext: NIL Ret: MIN RSB: NIL LSB: NIL R Rot: NIL L Rot: NIL PATIENT C/O PULLING ON R NECK AND SHLD REGION WITH R EXT, L SB AND L ROTATION TESTING - NW. Postural strength: POOR Palpation: TENDERNESS R NECK, SHLD, BICEP. DENIES HAND AND WRIST TENDERNESS. ALSO DENIES TENDERNESS WITH PALPATION OF UPPER THORACIC AND CERVICAL SPINE. TREATMENT: POSTURE CORRECTION WITH INSTRUCTION IN USE OF LUMBAR SUPPORT IN SITTING AND FREQUENT BREAKS FROM SITTING TO HELP PROMOTE GOOD HEALING ALIGNMENT. HOME INST IN GENTLE PASSIVE R SHLD FLEXION ROM WITH TABLE WALK-AWAYS TO HELP MAINTAIN ROM AND HELP AVOID FROZEN SHLD WHILE PATIENT IS IN PAIN AND NOT USING R UE NORMALLY. PATIENT RESPONDED WELL TO INTERVENTIONS AND COMMUNICATED/DEMONSTRATED GOOD UNDERSTANDING OF HOME INSTRUCTIONS. Balance/Special Test Scores Quick DASH Score: 36.3625 Goals Goal 1:: DECREASE C/O R UE SYMPTOMS BY AT LEAST 75% TO EASE ADL'S. Goal Time Frame: 4-6 Weeks Goal 2:: PATIENT WILL HAVE INCREASED STRENGTH OF R UE TO AT LEAST 4/5 THROUGHOUT TO IMPROVE ADL FUNCTION Goal Time Frame: 4-6 Weeks Goal 3:: PATIENT WILL HAVE AT LEAST A 10 POINT IMPROVEMENT IN QUICK DASH QUESTIONNAIRE SCORE Goal Time Frame: 4-6 Weeks Goal 4:: INDEP HEP Goal Time Frame: 4-6 Weeks Rehabilitation Potential Physical Therapy Diagnosis: R UE WEAKNESS AND STIFFNESS WITH C/O PAIN, NUMBNESS AND TINGLING LIMITING ADL'S. Rehabilitation Potential: Fair Anticipated Interventions Patient/Client Instruction: Educate patient on: Condition, Plan of Care and Risk Factors For the Purpose of:: To improve self management Therapeutic Exercise to Include: Strength training, Body mechanics, Postural training, Flexibilty training, Neuromotor development, Passive ROM, Active ROM and Scapular Strength/Stabilization For the Purpose of:: To decrease pain, To increase ROM, To improve muscle performance and motor function, To increase tolerance to activity/condition/position, To improve ability of physical actions for home/community/work/leisure, To decrease soft tissue restriction, To increase flexibility/ROM and To improve self management Manual Therapy Techniques to Include: Mobilization, Passive ROM and Soft tissue mobilization For the Purpose of:: To decrease pain, To improve nutrient delivery to tissue, To decrease soft tissue restriction and To increase flexibility/ROM Cryotherapy (ice pack, ice massage): Yes Ultrasound (thermal/non thermal): Yes For the Purpose of:: To decrease pain, To decrease swelling/inflammation and To improve nutrient delivery to tissue Text: Thank you for the opportunity to evaluate your patient. For Medicare and Medicare HMO plans, please review the plan of care and approve it. It will need to be FAXED BACK to us at [phone] for Medicare purposes. For Medicare only, by signing this I certify the plan of care. Please let me know if there are questions or concerns regarding this plan of care. Physician Signature: Date:
--- NOTE | 2024-11-15 14:28 | HP.PTREVAL ---
Re-Evaluation Intro: Dr. Espinoza Grimes MD, It has been my pleasure to treat AMANDO MCGEE over the last 13 visits for R SHLD PAIN. Please see the progress note below for an update on the physical therapy plan of care! Subjective Subjective: PATIENT REPORTS SHE STILL HAS A LOT OF DIFFICULTY BUT SHE CAN DO A LITTLE BETTER WITH DOING CHORES AT HOME LIKE PUTTING DISHES AWAY IN THE CABINETS, SHE CAN DO HER HAIR AND SHE CAN TOLERATE DRIVING A LITTLE MORE SINCE STARTING THERAPY. SHE ALSO REPORTS IT STILL HURTS BUT SHE CAN TOLERATE WASHING HER DAUGHTERS HAIR EASIER. SHE REPORTS SHE WAS DOING BETTER BEFORE SHE FELL AGAIN 10/15/24 BUT SHE IS STILL DOING BETTER THAN BEFORE STARTING PT. OVER-ALL SHE REPORTS SHE THINKS SHE HAS MORE PAIN BECAUSE IT HURTS ALL THE TIME NOW. R NECK/SHLD PAIN RANGES 2/10 TO 9/10. Objective Objective/Function: PATIENT WAS SEEN TODAY FOR RE-ASSESSMENT OF PROGRESS TOWARD THE SET PT GOALS AND THE NEED FOR FURTHER PHYSICAL THERAPY VS READINESS FOR DISCHARGE. OVER-ALL PATIENT IS NOT MAKING SIGNIFICANT PROGRESS WITH PT AND ACTUALLY MEASURES LESS R SHLD ACTIVE ELEVATION TODAY. SHE DID HAVE A SECOND FALL 10/15/24. PHYSICIAN RE-ASSESSMENT IS RECOMMENDED AND PATIENT HAS FOLLOW UP SCHEDULED Thursday11/18/24. UPON EXAM TODAY: ROM deficit: AROM: SEATED R ACTIVE SHLD FLEX 146, ABD 145, SUPINE AAROM: ER 62 DEG, IR 85 DEG. PATIENT C/O INCREASED PAIN, NUMBNESS AND TINGLING WITH MVMT. Motor deficit: R SHLD FLEX 3-/5, ABD 3-/5, IR 3-/5, ER 3-/5, ELBOW FLEX 4/5, EXT 4/5, R BRANCH GENERAL MANAGER STRENGTH 33 LBS, L BRANCH GENERAL MANAGER 37 LBS. ELBOW FLEX IS PAINFUL AND WEAK IN ADDITION TO SHLD PAIN AND WEAKNESS. SENSATION: PATIENT REPORTS DECREASED LIGHT TOUCH SENSATION OF ENTIRE R UE COMPARED TO L UE WITH TESTING. Plan Plan Plan: HOLD PT PENDING FOLLOW UP WITH DR. GRIMES. Balance/Gait/Functional tests Balance/Special Test Scores Quick DASH Score: 61.3625 Goals Goals Goal 1:: DECREASE C/O R UE SYMPTOMS BY AT LEAST 75% TO EASE ADL'S. Goal Time Frame: 4-6 Weeks Goal Progress: Not Progressing Goal 2:: PATIENT WILL HAVE INCREASED STRENGTH OF R UE TO AT LEAST 4/5 THROUGHOUT TO IMPROVE ADL FUNCTION Goal Time Frame: 4-6 Weeks Goal Progress: Not Progressing Goal 3:: PATIENT WILL HAVE AT LEAST A 10 POINT IMPROVEMENT IN QUICK DASH QUESTIONNAIRE SCORE Goal Time Frame: 4-6 Weeks Goal Progress: Not Progressing Goal 4:: INDEP HEP Goal Time Frame: 4-6 Weeks Goal Progress: Not Progressing Anticipated Interventions Anticipated Interventions Patient/Client Instruction: Educate patient on: Condition, Plan of Care and Risk Factors For the Purpose of:: To improve self management Therapeutic Exercise to Include: Strength training, Body mechanics, Postural training, Flexibilty training, Neuromotor development, Passive ROM, Active ROM and Scapular Strength/Stabilization For the Purpose of:: To decrease pain, To increase ROM, To improve muscle performance and motor function, To increase tolerance to activity/condition/position, To improve ability of physical actions for home/community/work/leisure, To decrease soft tissue restriction, To increase flexibility/ROM and To improve self management Manual Therapy Techniques to Include: Mobilization, Passive ROM and Soft tissue mobilization For the Purpose of:: To decrease pain, To improve nutrient delivery to tissue, To decrease soft tissue restriction and To increase flexibility/ROM Cryotherapy (ice pack, ice massage): Yes Ultrasound (thermal/non thermal): Yes For the Purpose of:: To decrease pain, To decrease swelling/inflammation and To improve nutrient delivery to tissue Re-Evaluation Ending Re-evaluation ending: Please do not hesitate to contact me at [phone] by phone or if you have questions or concerns regarding this new plan of care! Sincerely, Susannah Luu, PT, Cert MDT
--- NOTE | 2025-03-28 11:17 | HP.PT.NRP ---
Patient Information Patient Information: AMANDO MCGEE was seen in my office for initial evaluation on 09/29/24. The following Plan of Care was established for this patient: POC Established Initial Frequency: 2-3x /Week Initial Duration: 4-6 Weeks Anticipated Interventions Patient/Client Instruction: Educate patient on: Condition, Plan of Care and Risk Factors For the Purpose of:: To improve self management Therapeutic Exercise to Include: Strength training, Body mechanics, Postural training, Flexibilty training, Neuromotor development, Passive ROM, Active ROM and Scapular Strength/Stabilization For the Purpose of:: To decrease pain, To increase ROM, To improve muscle performance and motor function, To increase tolerance to activity/condition/position, To improve ability of physical actions for home/community/work/leisure, To decrease soft tissue restriction, To increase flexibility/ROM and To improve self management Manual Therapy Techniques to Include: Mobilization, Passive ROM and Soft tissue mobilization For the Purpose of:: To decrease pain, To improve nutrient delivery to tissue, To decrease soft tissue restriction and To increase flexibility/ROM Cryotherapy (ice pack, ice massage): Yes Ultrasound (thermal/non thermal): Yes For the Purpose of:: To decrease pain, To decrease swelling/inflammation and To improve nutrient delivery to tissue Last Seen Last Seen: This patient was last seen in our office 11/15/24. Pertinent comments regarding their Physical therapy will appear below: It has been my pleasure to see this patient for a total of 13 visits. This patient has not returned to Physical Therapy for more visits this episode of care. At this point I will be discontinuing this patient from physical therapy. I would be happy to see this patient again in the future if found appropriate by the physician. Thank you! Susannah Luu, PT, Cert MDT Balance/Gait/Functional tests Balance/Special Test Scores Quick DASH Score: [phone]
== END 2024-11-15 19:00 | disposition home or self-care (01) ==
LOC: PT 13:00
PROVIDERS: PCP Internal Medicine; Referring Provider Orthopaedic Surgery Sports Medicine; Visit Provider Orthopaedic Surgery Sports Medicine
DX: M25.511 Pain in right shoulder (principal)
CPT/HCPCS: 97035; 97110; 97140; 97162; 97530

== ENCOUNTER → 2024-12-07 | Outpatient (CLI) | payer MEDICAID, SELFPAY ==
--- NOTE | 2024-12-07 15:29 | MRI_ITS ---
PROCEDURE: UPPER EXT JOINT ONLY(ROUTINE) 12/07/2024 REASON FOR EXAM: PAIN, LATERAL SIDE. TECHNIQUE: Procedure Code: [id number] Modality: MR Procedure: MRI of the right shoulder without contrast. Multiplanar and multisequence images were obtained without IV contrast administration. COMPARISON: COMPARISON: None provided. FINDINGS: Bone and bone Marrow: No abnormal osseous signal is seen. No significant arthritic process is seen. Effusion: No joint effusion is evident. A small amount of fluid is seen within the subacromial/subdeltoid bursa. Soft Tissues: No abnormal muscle signal is noted. No free or loculated fluid collection is seen. Ligaments and Tendons: The long head of the biceps tendon appears intact. Moderate supraspinatus tendinosis is seen, with some intrasubstance tearing noted. No tendon retraction is seen. The infraspinatus tendon shows no tear. MRI/Upper Ext Joint Only(Routine) IMPRESSION: Moderate supraspinatus tendinosis, without intrasubstance tearing seen. No ten don retraction is noted. Reading Location: [place] [id number]
== END | disposition home or self-care (01) ==
LOC: OPMRI 15:28
PROVIDERS: PCP Internal Medicine; Referring Provider Orthopaedic Surgery Sports Medicine; Visit Provider Orthopaedic Surgery Sports Medicine
DX: M25.511 Pain in right shoulder (principal); G89.29 Other chronic pain
CPT/HCPCS: 73221

== ENCOUNTER 2025-01-18 07:51 | Day surgery (SDC) | payer MEDICAID, SELFPAY ==
[2025-01-05 12:41] LABS: Hematocrit 42.1 % (37-47); Hemoglobin 13.5 g/dL (12.0-15.0); Mean Corp Hgb Conc 32.1 g/dL (32-36); Mean Corpuscular Volume 88.8 fL (81-99); Mean Platelet Vol. 9.2 fl (6.2-12.0); Platelet Count 389 K/mm3 (150-450); RBC Distribution Width CV 13.4 % (11.6-14.6); RBC Distribution Width SD 43.9 fl (35.1-43.9); Red Blood Count 4.74 M/mm3 (4.2-5.4); White Blood Count 11.3 K/mm3 (4.4-11.0)
--- NOTE | 2025-01-05 12:45 | PAT.ANESEVAL ---
Pre-Assessment Diagnosis/Proposed Procedure Planned Operative Procedure(s): (R) Right shoulder Arthroscopy, subacromial decompression, debridement Anesthesia History Anesthesia History - student finance specialist: Anesthesia History - student finance specialist Hx Hospitalization No 01/04/25 10:58 Any Problems With Anesthesia No 01/04/25 10:58 Cholinesterase deficiency No 01/04/25 10:58 You/Your Family Experience No 01/04/25 10:58 fever (hyperthermia) with Relationship Recent Exposure to Contagious Disease Does patient have nerve No 01/04/25 10:58 stimulator Patient instructed to have device shut off --Does patient have Pacemaker or ICD? When Was Last Pacemaker Check QUESTION #4 FULL TEXT: You/Your Family Experience fever (hyperthermia) with Anesthesia Last Oral Intake Last Oral intake: Last Oral Intake NPO since Meds taken in AM with sips of water? Meds patient instructed to take am of surgery PONV PONV - student finance specialist: PONV - student finance specialist Female Yes 01/04/25 10:58 HX of Motion Sickness No 01/04/25 10:58 HX of N/V After Surgery No 01/04/25 10:58 Non-Smoker Yes 01/04/25 10:58 Duration of Surgery greater Yes 01/04/25 10:58 than 60 minutes Number of Risk Factors 3 01/04/25 10:58 PONV Score Moderate Risk 01/04/25 10:58 Height & Weight Height & Weight: Anesthesia: Height & Weight Height 4 ft 11 in 12/08/24 11:07 Respiratory Assessment Respiratory Assessment - student finance specialist: Respiratory Tract Infection Hx - student finance specialist Hx Respiratory Tract Infection No 01/04/25 10:58 STOP Sleep Apnea STOP Sleep Apnea - student finance specialist: STOP Sleep Apnea - student finance specialist Hx Hypertension No 01/04/25 10:58 Hx Sleep Apnea No 01/04/25 10:58 CPAP BIPAP Do you snore loudly (louder Yes 01/04/25 10:58 than talking or can be heard Do you often feel tired/ No 01/04/25 10:58 fatigued/ sleepy during daytime? Has anyone observed you stop No 01/04/25 10:58 breathing during sleep? STOP Results Negative 01/04/25 10:58 QUESTION #5 FULL TEXT : Do you snore loudly (louder than talking or can be heard through closed doors)? Tobacco Use History Tobacco Use History - student finance specialist: Tobacco Use History - student finance specialist Tobacco Use Smoking Status Never smoker 01/04/25 10:58 Hx Tobacco Use No 01/04/25 10:58 Years Smoking Packs Smoked per Day Smoking Cessation Date was within the last 15 years Hx Smoking Cessation Date Hx Smoking Cessation Counseling Hematologic Medial History Hematologic Hx - student finance specialist: Hematologic Medical Hx - impregnator helper Hx of Blood Transfusion No 01/04/25 10:58 Hx of Transfusion in last 3 No 01/04/25 10:58 Months Date of Last Transfusion (if within last 3 months) Ever experience any problems No 01/04/25 10:58 with transfusion(s)? Specify any problems Hx of Preganancy in last 3 N/A 01/04/25 10:58 Months Nurse Filling Out Transfusion NBUCHER 01/04/25 10:58 & Questions: Date: 01/04/25 01/04/25 10:58 Time: 11:00 01/04/25 10:58 Patient unable to answer at this time (ie. confused, unrespo /Reproduction History /Reproductive History - student finance specialist: /Reproductive Hx- student finance specialist Hx Now No 01/04/25 10:58 Gestational Age (in weeks): EDC: Hx Hx Para Hx Section SAB No 01/04/25 10:58 [facility] Medical History (Updated 01/04/25 @ 11:06 by Mona Vo) Wears glasses Anxiety Thyroid disease Non-smoker History of cardiac monitoring History of echocardiogram Cardiology follow-up encounter Tendinosis of right rotator cuff Seizure Right shoulder pain Hives Chronic headache Allergies Chest pain Hx of ovarian cyst Pes cavus Obesity, Class III, BMI 40-49.9 (morbid obesity) Anxiety and depression Hypothyroid Home Medications Medication Instructions Recorded Last Taken Type levothyroxine 88 mcg tablet 88 mcg PO QDAY #30 tabs 12/22/24 Unknown Rx cholecalciferol (vitamin D3) 25 25 mcg PO QHS 01/04/25 Unknown History mcg (1,000 unit) capsule metoprolol succinate 50 mg 50 mg PO QHS 01/04/25 Unknown History tablet,extended release 24 hr sertraline 100 mg tablet 100 mg PO QHS for depressive 01/04/25 Unknown History disorder Allergy/AdvReac Type Severity Reaction Status Date / Time megestrol Allergy shortness Verified 01/04/25 10:57 of breath, hives azithromycin AdvReac Intermediate Upset Verified 01/04/25 10:57 Stomach Family History Maternal Grandmother Cancer Grandfather Cancer skin Surgical History (Updated 01/04/25 @ 11:06 by Mona Vo) S/P wisdom tooth extraction Hx of laparoscopy H/O section Social History adopted: No household members: family housing: house number of children: 1 current occupational status: unemployed current occupation: [employer] pets and animals: Yes (chickens) history of recent travel: No sexually active: Yes Smoking Status: Never smoker second hand exposure: Yes alcohol intake: never substance use type: does not use well-balanced diet: about half the time caffeine: Yes Type: coffee Number of servings: 1 eating out: other details: 2/ month during the past year weight has: remained stable what type of physical activity do you participate in: walking frequency: 1-2 times per week duration: < 15 minutes/day obdulia/roman catholic: None seatbelt use: always do you feel safe at home: Yes additional social history: - Markel Audit: Pertinent Findings Pertinent Findings EKG Perinent findings: 03/30/2023. Sinus tachycardia 112 bpm. Otherwise normal EKG. Echo (EF%) pertinent findings: 11/04/2023. Normal size function EF 60%. Pulmonary artery pressure 34. Consult pertinent findings: Cardiology 06/13/2024. Intermittent palpitations. Chronic. Tolerating metoprolol. Continue current medical therapy. Recommendation Anesthesia Recommendation Anesthesia recommendation: OPTIMIZED for anesthesia
--- NOTE | 2025-01-05 12:57 | PAT.ANE_ITS ---
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 When Was Last Pacemaker Check QUESTION #4 FULL TEXT: You/Your Family Experience fever (hyperthermia) with Anesthesia Last Oral Intake Last Oral intake: Last Oral Intake NPO since Meds taken in AM with sips of water? Meds patient instructed to take am of surgery PONV PONV - foundry process engineer: PONV - foundry process engineer Female Yes 01/04/25 10:58 HX of Motion Sickness No 01/04/25 10:58 HX of N/V After Surgery No 01/04/25 10:58 Non-Smoker Yes 01/04/25 10:58 Duration of Surgery greater Yes 01/04/25 10:58 than 60 minutes Number of Risk Factors 3 01/04/25 10:58 PONV Score Moderate Risk 01/04/25 10:58 Height & Weight Height & Weight: Anesthesia: Height & Weight Height 4 ft 11 in 12/08/24 11:07 Respiratory Assessment Respiratory Assessment - foundry process engineer: Respiratory Tract Infection Hx - foundry process engineer Hx Respiratory Tract Infection No 01/04/25 10:58 STOP Sleep Apnea STOP Sleep Apnea - foundry process engineer: STOP Sleep Apnea - foundry process engineer Hx Hypertension No 01/04/25 10:58 Hx Sleep Apnea No 01/04/25 10:58 CPAP BIPAP Do you snore loudly (louder Yes 01/04/25 10:58 than talking or can be heard Do you often feel tired/ No 01/04/25 10:58 fatigued/ sleepy during daytime? Has anyone observed you stop No 01/04/25 10:58 breathing during sleep? STOP Results Negative 01/04/25 10:58 QUESTION #5 FULL TEXT : Do you snore loudly (louder than talking or can be heard through closed doors)? 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 Specify any problems Hx of Preganancy in last 3 N/A 01/04/25 10:58 Months Nurse Filling Out Transfusion NBU[facility]ER 01/04/25 10:58 & Questions: Date: 01/04/25 01/04/25 10:58 Time: 11:00 01/04/25 10:58 Patient unable to answer at this time (ie. confused, unrespo /Reproduction History /Reproductive History - foundry process engineer: /Reproductive Hx- foundry process engineer Hx Now No 01/04/25 10:58 Gestational Age (in weeks): EDC: Hx Hx Para Hx Section SAB No 01/04/25 10:58 [facility] Medical History (Updated 01/04/25 @ 11:06 by Mona Vo) Wears glasses Anxiety Thyroid disease Non-smoker History of cardiac monitoring History of echocardiogram Cardiology follow-up encounter Tendinosis of right rotator cuff Seizure Right shoulder pain Hives Chronic headache Allergies Chest pain Hx of ovarian cyst Pes cavus Obesity, Class III, BMI 40-49.9 (morbid obesity) Anxiety and depression Hypothyroid Home Medications Medication Instructions Recorded Last Taken Type levothyroxine 88 mcg tablet 88 mcg PO QDAY #30 tabs Unknown Rx cholecalciferol (vitamin D3) 25 25 mcg PO QHS 01/04/25 Unknown History mcg (1,000 unit) capsule metoprolol succinate 50 mg 50 mg PO QHS 01/04/25 Unkno wn History tablet,extended release 24 hr sertraline 100 mg tablet 100 mg PO QHS for depressive 01/04/25 Unknown History disorder Allergy/AdvReac Type Severity Reaction Status Date / Time megestrol Allergy shortness Verified 01/04/25 10:57 of breath, hives azithromycin AdvReac Intermediate Upset Verified 01/04/25 10:57 Stomach Family History Maternal Grandmother Cancer Grandfather Cancer skin Surgical History (Updated 01/04/25 @ 11:06 by Mona Vo) S/P wisdom tooth extraction Hx of laparoscopy H/O section Social History adopted: No household members: family housing: house number of children: 1 current occupational status: unemployed current occupation: [employer] pets and animals: Yes (chickens) history of recent travel: No sexually active: Yes Smoking Status: Never smoker second hand exposure: Yes alcohol intake: never substance use type: does not use well-balanced diet: about half the time caffeine: Yes Type: coffee Number of servings: 1 eating out: other details: 2/ month during the past year weight has: remained stable what type of physical activity do you participate in: walking frequency: 1-2 times per week duration: < 15 minutes/day obdulia/orthodoxy: None seatbelt use: always do you feel safe at home: Yes additional social history: - Markel Audit: Pertinent Findings HISTORY of Pertinent Findings History of Pertinent Findings: EKG Pertinent Findings EKG Perinent findings 03/30/2023. Sinus tachycardia 01/05/25 12:47 112 bpm. Otherwise normal EKG. Echo Pertinent Findings Echo (EF%) pertinent findings 11/04/2023. Normal size 01/05/25 12:47 function EF 60%. Pulmonary artery pressure 34. Consult Pertinent Findings Consult pertinent findings Cardiology 06/13/2024. 01/05/25 12:47 Intermittent palpitations. Chronic. Tolerating metoprolol. Continue current medical therapy. Recommendation Anesthesia Recommendation Anesthesia recommendation: Anesthesia NOT approved
[2025-01-05 13:29] LABS: Anion Gap 10 (5-15); BUN 16 mg/dL (4-19); BUN/Creat Ratio 23.7 RATIO (10-20); Calcium,Total 9.3 mg/dL (7.6-11.0); Carbon Dioxide 24.1 mmol/L (21.0-32.0); Chloride 103 mmol/L (98-108); Glucose 113 mg/dL (70-99); Potassium 4.0 mmol/L (3.3-5.1)
--- NOTE | 2025-01-05 13:55 | PAT.ANESEVAL ---
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 When Was Last Pacemaker Check QUESTION #4 FULL TEXT: You/Your Family Experience fever (hyperthermia) with Anesthesia Last Oral Intake Last Oral intake: Last Oral Intake NPO since Meds taken in AM with sips of water? Meds patient instructed to take am of surgery PONV PONV - import/export administrator: PONV - import/export administrator Female Yes 01/04/25 10:58 HX of Motion Sickness No 01/04/25 10:58 HX of N/V After Surgery No 01/04/25 10:58 Non-Smoker Yes 01/04/25 10:58 Duration of Surgery greater Yes 01/04/25 10:58 than 60 minutes Number of Risk Factors 3 01/04/25 10:58 PONV Score Moderate Risk 01/04/25 10:58 Height & Weight Height & Weight: Anesthesia: Height & Weight Height 4 ft 11 in 12/08/24 11:07 Respiratory Assessment Respiratory Assessment - import/export administrator: Respiratory Tract Infection Hx - import/export administrator Hx Respiratory Tract Infection No 01/04/25 10:58 STOP Sleep Apnea STOP Sleep Apnea - import/export administrator: STOP Sleep Apnea - import/export administrator Hx Hypertension No 01/04/25 10:58 Hx Sleep Apnea No 01/04/25 10:58 CPAP BIPAP Do you snore loudly (louder Yes 01/04/25 10:58 than talking or can be heard Do you often feel tired/ No 01/04/25 10:58 fatigued/ sleepy during daytime? Has anyone observed you stop No 01/04/25 10:58 breathing during sleep? STOP Results Negative 01/04/25 10:58 QUESTION #5 FULL TEXT : Do you snore loudly (louder than talking or can be heard through closed doors)? 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 Specify any problems Hx of Preganancy in last 3 N/A 01/04/25 10:58 Months Nurse Filling Out Transfusion [facility]BU[facility] 01/04/25 10:58 & Questions: Date: 01/04/25 01/04/25 10:58 Time: 11:00 01/04/25 10:58 Patient unable to answer at this time (ie. confused, unrespo /Reproduction History /Reproductive History - import/export administrator: /Reproductive Hx- import/export administrator Hx Now No 01/04/25 10:58 Gestational Age (in weeks): EDC: Hx Hx Para Hx Section SAB No 01/04/25 10:58 [facility] Medical History (Updated 01/04/25 @ 11:06 by Mona Vo) Wears glasses Anxiety Thyroid disease Non-smoker History of cardiac monitoring History of echocardiogram Cardiology follow-up encounter Tendinosis of right rotator cuff Seizure Right shoulder pain Hives Chronic headache Allergies Chest pain Hx of ovarian cyst Pes cavus Obesity, Class III, BMI 40-49.9 (morbid obesity) Anxiety and depression Hypothyroid Home Medications Medication Instructions Recorded Last Taken Type levothyroxine 88 mcg tablet 88 mcg PO QDAY #30 tabs 12/22/24 Unknown Rx cholecalciferol (vitamin D3) 25 25 mcg PO QHS 01/04/25 Unknown History mcg (1,000 unit) capsule metoprolol succinate 50 mg 50 mg PO QHS 01/04/25 Unknown History tablet,extended release 24 hr sertraline 100 mg tablet 100 mg PO QHS for depressive 01/04/25 Unknown History disorder Allergy/AdvReac Type Severity Reaction Status Date / Time megestrol Allergy shortness Verified 01/04/25 10:57 of breath, hives azithromycin AdvReac Intermediate Upset Verified 01/04/25 10:57 Stomach Family History Maternal Grandmother Cancer Grandfather Cancer skin Surgical History (Updated 01/04/25 @ 11:06 by Mona Vo) S/P wisdom tooth extraction Hx of laparoscopy H/O section Social History adopted: No household members: family housing: house number of children: 1 current occupational status: unemployed current occupation: [employer] pets and animals: Yes (chickens) history of recent travel: No sexually active: Yes Smoking Status: Never smoker second hand exposure: Yes alcohol intake: never substance use type: does not use well-balanced diet: about half the time caffeine: Yes Type: coffee Number of servings: 1 eating out: other details: 2/ month during the past year weight has: remained stable what type of physical activity do you participate in: walking frequency: 1-2 times per week duration: < 15 minutes/day obdulia/hindu: None seatbelt use: always do you feel safe at home: Yes additional social history: - Markel Audit: Pertinent Findings HISTORY of Pertinent Findings History of Pertinent Findings: EKG Pertinent Findings EKG Perinent findings 03/30/2023. Sinus tachycardia 01/05/25 12:47 112 bpm. Otherwise normal EKG. Echo Pertinent Findings Echo (EF%) pertinent findings 11/04/2023. Normal size 01/05/25 12:47 function EF 60%. Pulmonary artery pressure 34. Consult Pertinent Findings Consult pertinent findings Cardiology 06/13/2024. 01/05/25 12:47 Intermittent palpitations. Chronic. Tolerating metoprolol. Continue current medical therapy. Recommendation Anesthesia Recommendation Anesthesia recommendation: OPTIMIZED for anesthesia
[2025-01-18] VITALS (15 sets, daily range): BP systolic 110–125; BP diastolic 71–87; PULSE 67–92; RESP 16–20; TEMP 36.1; O2SAT 92–100; BMI 53.3
[2025-01-18 08:07] LABS: Internal QC Validated? YES +Cl - CLEAR BKGD
[2025-01-18 08:09] LABS: Pregnancy, Urine Negative Negative; Record Kit Lot#,Urine Preg 0000980607
[2025-01-18] MEDS: Lactated Ringers 1,000 ML 15 ML IV (08:19)
--- NOTE | 2025-01-18 08:38 | PCM.PRE.AN2 ---
ASA Classification* ASA Classification ASA Classification: 3 Assessment & Plan Anesthesia* Anesthesia Assessment Anesthesia Assessment: Discussed sedation and/or anesthesia options, risks, benefits, and alternatives with patient/parents/legal guardian/POA. Questions invited. The patient/parents/legal guardian/POA seems to understand and agrees to proceed with anesthesia plan. Reviewed the physical assessment, medical history, allergy history and patient home medications list prior to surgery/procedure/anesthetic and documented any changes. Performed airway and anesthesia risk assessments. Anesthesia Type Anesthesia Type: General and Block Anesthesia Focused Assessment* Temperature: 97 F Pulse Rate: 92 Blood Pressure: 111/74 Respiratory Rate: 16 Pulse Ox: 98 Airway Assessment Mouth opens: >3 cm Mallampati Score: II Labs Anesthesia Preop lab: CBC WBC, (4.4-11.0) 11.3 K/mm3 H 01/05/25, 11:35 RBC, (4.2-5.4) 4.74 M/mm3 01/05/25, 11:35 Hgb, (12.0-15.0) 13.5 g/dL 01/05/25, 11:35 Hct, (37-47) 42.1 % 01/05/25, 11:35 Plt Count, (150-450) 389 K/mm3 01/05/25, 11:35 CHEMISTRY Potassium, (3.3-5.1) 4.0 mmol/L 01/05/25, 11:35 Sodium, (133-145) 137 mmol/L 01/05/25, 11:35 BUN, (4-19) 16 mg/dL 01/05/25, 11:35 Creatinine, (0.70-1.20) 0.68 mg/dL L 01/05/25, 11:35 Glucose, (70-99) 113 mg/dL H 01/05/25, 11:35 TSH, (0.300-4.200) 3.580 uIU/mL 01/05/25, 11:35 COAG HCG, Quant, (1-3) < 1 mIU/mL 10/01/22, 13:38 Urine Test Negative Negative Today, 08:00 Pre-Assessment Diagnosis/Proposed Procedure Planned Operative Procedure(s): (R) Right shoulder Arthroscopy, subacromial decompression, debridement Anesthesia History 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 When Was Last Pacemaker Check QUESTION #4 FULL TEXT: You/Your Family Experience fever (hyperthermia) with Anesthesia Last Oral Intake Last Oral intake: Last Oral Intake NPO since 21:45 01/18/25 08:12 Meds taken in AM with sips of water? 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: PONV - truck driver flatbed Female Yes 01/04/25 10:58 HX of Motion Sickness No 01/04/25 10:58 HX of N/V After Surgery No 01/04/25 10:58 Non-Smoker Yes 01/04/25 10:58 Duration of Surgery greater Yes 01/04/25 10:58 than 60 minutes Number of Risk Factors 3 01/04/25 10:58 PONV Score Moderate Risk 01/04/25 10:58 Height & Weight Height & Weight: Anesthesia: Height & Weight Height 4 ft 11 in 01/18/25 08:12 Weight: 119.748 kg 01/18/25 08:12 Body Mass Index (BMI) 53.3 01/18/25 08:12 Respiratory Assessment Respiratory Assessment - truck driver flatbed: Respiratory Tract Infection Hx - truck driver flatbed Hx Respiratory Tract Infection No 01/04/25 10:58 STOP Sleep Apnea STOP Sleep Apnea - truck driver flatbed: STOP Sleep Apnea - truck driver flatbed Hx Hypertension No 01/04/25 10:58 Hx Sleep Apnea No 01/04/25 10:58 CPAP BIPAP Do you snore loudly (louder Yes 01/04/25 10:58 than talking or can be heard Do you often feel tired/ No 01/04/25 10:58 fatigued/ sleepy during daytime? Has anyone observed you stop No 01/04/25 10:58 breathing during sleep? STOP Results Negative 01/04/25 10:58 QUESTION #5 FULL TEXT : Do you snore loudly (louder than talking or can be heard through closed doors)? 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 Specify any problems Hx of Preganancy in last 3 N/A 01/04/25 10:58 Months Nurse Filling Out Transfusion [facility] 01/04/25 10:58 & Questions: Date: 01/04/25 01/04/25 10:58 Time: 11:00 01/04/25 10:58 Patient unable to answer at this time (ie. confused, unrespo /Reproduction History /Reproductive History - truck driver flatbed: /Reproductive Hx- truck driver flatbed Hx Now No 01/04/25 10:58 Gestational Age (in weeks): EDC: Hx Hx Para Hx Section SAB No 01/04/25 10:58 Active Medications Active Medications: Current Medications Generic Name Dose Route Start Last Admin Trade Name Freq PRN Reason Stop Dose Admin Cefazolin Sodium 2 gm/ Sodium 110 mls @ 200 mls/hr 01/18/25 09:50 01/18/25 08:35 Chloride IV 01/18/25 10:22 Not Given INTRAOP ONE Lactated Ringer's 1,000 mls @ 15 mls/hr 01/18/25 08:00 01/18/25 08:19 IV 15 mls/hr .Q48H APRIL Administration PFSH Medical History Wears glasses Anxiety Thyroid disease Non-smoker History of cardiac monitoring History of echocardiogram Cardiology follow-up encounter Tendinosis of right rotator cuff Seizure Right shoulder pain Hives Chronic headache Allergies Chest pain Hx of ovarian cyst Pes cavus Obesity, Class III, BMI 40-49.9 (morbid obesity) Anxiety and depression Hypothyroid Home Medications Medication Instructions Recorded Last Taken Type levothyroxine 88 mcg tablet 88 mcg PO QDAY #30 tabs 12/22/24 01/17/25 Rx metoprolol succinate 50 mg 50 mg PO QHS 01/04/25 01/17/25 21:45 History tablet,extended release 24 hr sertraline 100 mg tablet 100 mg PO QHS for depressive 01/04/25 Unknown History disorder cholecalciferol (vitamin D3) 25 25 mcg PO QHS #90 caps 01/12/25 Unknown Rx mcg (1,000 unit) capsule Allergy/AdvReac Type Severity Reaction Status Date / Time megestrol Allergy shortness Verified 01/18/25 08:11 of breath, hives azithromycin AdvReac Intermediate Upset Verified 01/18/25 08:11 Stomach Family History Maternal Grandmother Cancer Grandfather Cancer skin Surgical History S/P wisdom tooth extraction Hx of laparoscopy H/O section Social History adopted: No household members: family housing: house number of children: 1 current occupational status: unemployed current occupation: [employer] pets and animals: Yes (chickens) history of recent travel: No sexually active: Yes Smoking Status: Never smoker second hand exposure: Yes alcohol intake: never substance use type: does not use well-balanced diet: about half the time caffeine: Yes Type: coffee Number of servings: 1 eating out: other details: 2/ month during the past year weight has: remained stable what type of physical activity do you participate in: walking frequency: 1-2 times per week duration: < 15 minutes/day obdulia/evangelical: None seatbelt use: always do you feel safe at home: Yes additional social history: - Markel Review of Systems (Anesthesia) ROS Narrative System reviewed and no additional complaints, except as documented.
--- NOTE | 2025-01-18 09:00 | HP.PCM_ITS ---
HPI - General HPI Narrative AMANDO MCGEE, is a 29 F who presents for right shoulder arthroscopy, subacromial decompression, debridement. No changes to history and physical exam. Risks alternatives benefits discussed as well as postoperative instructions and narcotic counseling. The patient understands wished to proceed with surgery signed the shoulder and no further questions or concerns. MR#: [id number] Acct: [id number] Name: AMANDO MCGEE ESVIN Rep #: [id number] : 1995 Provider: Dr. Espinoza Hernadez MD Age/Sex: 29/F Location: [facility] [place] Status: Signed Intake Vital Signs 11/18/2513:25 12/08/2510:07 Height 4 ft 11 in 4 ft 11 in Weight: 259 lb BMI 52.3 BP 118/78 Blood Pressure Location Lt brachial Position Sitting Respiration 14 Pulse 81 Pulse Source Monitor Temp 97.4 F L Temp Source Temporal Pulse Oximetry (%) 97 Oxygen Delivery Method room air Intake Visit Reasons: RIGHT SHOULDER Chief Complaint: MRI Review Accompanied by: Self Is patient in pain?: Yes Pain scale (1-10): 4 Allergies megestrol Allergy (Verified 12/12/24 13:49) shortness of breath, hives azithromycin Adverse Reaction (Intermediate, Verified 12/12/24 13:49) Upset Stomach Medications Medication Instructions Recorded Confirmed Type levothyroxine 88 mcg tablet 88 mcg PO QDAY #30 tabs 08/08/24 5 Rx sertraline 100 mg tablet 100 mg PO DAILY for depressive 10/18/24 12/12/24 Rx disorder #90 TABLETS metoprolol succinate 50 mg 50 mg PO BID #180 tabs 11/10/24 12/12/24 Rx tablet,extended release 24 hr cholecalciferol (vitamin D3) 25 25 mcg PO QDAY #90 caps 12/01/24 5 Rx mcg (1,000 unit) capsule PFSH Medical History Tendinosis of right rotator cuff Seizure Hx of ovarian cyst Right shoulder pain Hives Chronic headache Allergies Chest pain Pes cavus Obesity, Class III, BMI 40-49.9 (morbid obesity) Anxiety and depression Hypothyroid Surgical History S/P wisdom tooth extraction Hx of laparoscopy H/O section Family History Maternal Grandmother Cancer Grandfather Cancer skin Social History adopted: No household members: family housing: house number of children: 1 current occupational status: unemployed current occupation: [employer] pets and animals: Yes (chickens) history of recent travel: No sexually active: Yes Smoking Status: Never smoker second hand exposure: Yes alcohol intake: never substance use type: does not use well-balanced diet: about half the time caffeine: Yes Type: coffee Number of servings: 1 eating out: other details: 2/ month during the past year weight has: remained stable what type of physical activity do you participate in: walking frequency: 1-2 times per week duration: < 15 minutes/day obdulia/rastafarian: None seatbelt use: always do you feel safe at home: Yes additional social history: - Markel HPI RIGHT SHOULDER Details: This documentation accurately reflects the service provided and the decisions made by me, Dr. Espinoza Hernadez MD 12/12/24 1305. Part of today’s visit was documented by [ ], acting as scribe. AMANDO MCGEE is a 29 year old F here today for FU R shoulder MRI results. Still having laterally based shoulder pain worse with lifting. Has been a little responsive to cortisone injections and physical therapy. There is some clicking and crepitus especially with overhead shoulder height range of motion. Supplemental Info [facility] Imaging Services [address] [place] [address] [id number] Upper Ext Joint Only(Routine) MR#: [id number] Acct: [id number] Name: AMANDO MCGEE ESVIN Rep #: [id number] : 1995 F 29 From: Luca Sequeira MD PCP: Dr. Jazlyn Castro MD Status: REG CLI Study: Upper Ext Joint Only(Routine) Date of Exam: 12/07/24 Exam# [id number] Ordering Dr: Espinoza Hernadez MD PROCEDURE: UPPER EXT JOINT ONLY(ROUTINE) 12/07/2024 REASON FOR EXAM: PAIN, LATERAL SIDE. TECHNIQUE: Procedure Code: MRIUEJ Modality: MR Procedure: MRI of the right shoulder without contrast. Multiplanar and multisequence images were obtained without IV contrast administration. COMPARISON: COMPARISON: None provided. FINDINGS: Bone and bone Marrow: No abnormal osseous signal is seen. No significant arthritic process is seen. Effusion: No joint effusion is evident. A small amount of fluid is seen within the subacromial/subdeltoid bursa. Soft Tissues: No abnormal muscle signal is noted. No free or loculated fluid collection is seen. Ligaments and Tendons: The long head of the biceps tendon appears intact. Moderate supraspinatus tendinosis is seen, with some intrasubstance tearing noted. No tendon retraction is seen. The infraspinatus tendon shows no tear. MRI/Upper Ext Joint Only(Routine) IMPRESSION: Moderate supraspinatus tendinosis, without intrasubstance tearing seen. No tendon retraction is noted. Reading Location: [place] [address] I independently reviewed the imaging. Concur with radiologist report. Coding Level of Care Code Off vis,est,level 4 Diagnoses Chronic right shoulder pain M25.511; G89.29 Chronicity: chronic Tendinosis of right rotator cuff M67.813 Assessment and Plan Assessment and Plan (1) Right shoulder pain: Status: Acute Qualifiers: Chronicity: chronic Qualified Code(s): M25.511 - Pain in right shoulder; G89.29 - Other chronic pain Plan: 29 yr F with right shoulder MRI evidence of moderate supraspinatus tendinosis, without intrasubstance tearing seen. No other abnormalities. Counseled the patient on risks and benefits of continued conservative management versus surgery. Patient more interested in surgical management at this point. Has high heart rate - sees Dr. Biswas -will need pre op clearance. Surgery would be in the form of right shoulder arthroscopy, subacromial decompression, debridement. Increased risks d/t obesity, thyroid, and heart issues. She understands and wishes to proceed. Patient counselled on non-operative and operative means of treating shoulder pain. Conservative options include but not limited to: 1. Rest and Activity Modification: Giving your shoulder time to heal by avoiding movements that cause pain can help. This may involve limiting overhead activities or heavy lifting. 2. Physical Therapy: A physical therapist can guide you through exercises that strengthen the muscles around the shoulder, improve flexibility, and reduce strain on the rotator cuff tendon. 3. Ice and Heat Therapy: Applying ice to the shoulder can help reduce swelling and pain, especially after activity. Heat can be helpful to relax tense muscles and improve blood flow before exercises. 4. Anti-Inflammatory Medications: Rvbb-dxm-jcwarhf medications like ibuprofen or naproxen can help reduce pain and inflammation in the tendon. 5. Corticosteroid Injections: If the pain is more severe, a steroid injection can reduce inflammation in the shoulder and provide relief for a longer period. 6. Platelet-Rich Plasma (PRP) Injection: This treatment involves using your own blood to promote healing in the tendon. The plasma is rich in growth factors that can encourage tissue repair. 7. TENS (Transcutaneous Electrical Nerve Stimulation): This therapy uses a small electrical current to help manage pain and promote healing by stimulating nerves. (2) Tendinosis of right rotator cuff: Status: Acute Ortho Exam General General: Yes no acute distress Neurologic: Yes alert and Yes oriented x3 Psychologic: Yes reasonable and appropriate Right Shoulder Skin/Wound: Yes CDI Testing: Positive Hawkin's, Neer's, AROM-Forward Elevation 0-180, AROM-External Rotation at side 0-60 and empty can; Negative cross arm SHOULDER: strength 4+ in FE. [facility] Medical History Wears glasses Anxiety Thyroid disease Non-smoker History of cardiac monitoring History of echocardiogram Cardiology follow-up encounter Tendinosis of right rotator cuff Seizure Right shoulder pain Hives Chronic headache Allergies Chest pain Hx of ovarian cyst Pes cavus Obesity, Class III, BMI 40-49.9 (morbid obesity) Anxiety and depression Hypothyroid Home Medications Medication Instructions Recorded Last Taken Type levothyroxine 88 mcg tablet 88 mcg PO QDAY #30 tabs 01/17/25 Rx metoprolol succinate 50 mg 50 mg PO QHS 01/04/2501/17 21:45 History tablet,extended release 24 hr sertraline 100 mg tablet 100 mg PO QHS for depressive 01/04/25 Unknown History disorder cholecalciferol (vitamin D3) 25 25 mcg PO QHS #90 caps 01/12/25 Unknown Rx mcg (1,000 unit) capsule Allergy/AdvReac Type Severity Reaction Status Date / Time megestrol Allergy shortness Verified 01/18/25 08:11 of breath, hives azithromycin AdvReac Intermediate Upset Verified 01/18/25 08:11 Stomach Family History Maternal Grandmother Cancer Grandfather Cancer skin Surgical History S/P wisdom tooth extraction Hx of laparoscopy H/O section Social History adopted: No household members: family housing: house number of children: 1 current occupational status: unemployed current occupation: [employer] pets and animals: Yes (chickens) history of recent travel: No sexually active: Yes Smoking Status: Never smoker second hand exposure: Yes alcohol intake: never substance use type: does not use well-balanced diet: about half the time caffeine: Yes Type: coffee Number of servings: 1 eating out: other details: 2/ month during the past year weight has: remained stable what type of physical activity do you participate in: walking frequency: 1-2 times per week duration: < 15 minutes/day obdulia/rastafarian: None seatbelt use: always do you feel safe at home: Yes additional social history: - Markel Vital Signs Vital Signs Vital Signs: 01/18/25 08:12 01/18/25 08:12 01/18/25 08:39 Temperature 97 F L 97 F L Temperature Source Temporal Pulse Rate 92 92 Respiratory Rate 16 16 Respiratory Pattern Normal Blood Pressure 111/74 111/74 Blood Pressure Mean 86 Blood Pressure Source Monitor Blood Pressure Position Semi-Fowlers Blood Pressure Location Left Forearm Pulse Ox 98 98 Oxygen Delivery Method Room Air Weight Weight: 264 lb Body Mass Index (BMI) 53.3 Results Lab / Micro Data 01/05/25 11:35 01/05/25 11:35 Labs: Laboratory Results - last 24 hr 01/18/25 08:00: Urine Test Negative
[2025-01-18] MEDS: Midazolam 2 MG/2 ML Syringe IV (09:01)
[2025-01-18] MEDS: Cefazolin 1 GM/5 ML Vial 3 GM IV (09:32)
[2025-01-18] MEDS: Lactated Ringers 1,000 ML 1000 ML IV (09:32)
[2025-01-18] MEDS: Lidocaine 1% (5 ml sdv) 5 ML Vial IV (09:44)
[2025-01-18] MEDS: Epinephrine (1 mg/ml) 1 MG/ML VIAL (10:03)
--- NOTE | 2025-01-18 11:13 | EX.PCM.DISCH ---
Discharge Instructions Diet Discharge Diet: No restrictions Activity Ice area for (Minutes): 10 Lifting Restrictions: no lifting over one pound, ok to remove sling at rest Additional Activity Instructions:: pendulums, hand wrist elbow rom 4x/day Dressing / Incision Call your doctor if your incision/area has: Continuous Slow Oozing, Sudden Increased Bleeding, Increased Pain/ Swelling, Increased Redness, Foul Smelling Discharge and Swelling at the incision site Call your doctor if you observe: Fever of 101 or Higher, Coldness, Increased Pain and Numbness or Tingling Change Dressing in: leave in place till F/U Cleanse incision/area with: Do not get Incision Wet Additional Dressing/Incision Instructions:: ok to change dressing if needed, and keep incisions covered and dry. Follow Up Care Please Follow Up With: Espinoza Hernadez MD When: within 2 weeks Test Results: Test results from this visit will be discussed in further detail at your follow-up appointment, if applicable. Discharge Plan Admission Attending Provider: Espinoza Hernadez Primary Care Provider: Jazlyn Castro Instructions Patient Instructions: After Shoulder Arthroscopy Print Language: Bermudian Discharge Orders/Prescriptions Prescriptions: New oxycodone-acetaminophen [Endocet] 5-325 mg tablet 1 tab PO Q4H MDD 6 PRN (Reason: pain) 3 Days Qty: 20 0RF No Action metoprolol succinate 50 mg tablet extended release 24 hr 50 mg PO QHS sertraline 100 mg tablet 100 mg PO QHS levothyroxine 88 mcg tablet 88 mcg PO QDAY Qty: 30 1RF cholecalciferol (vitamin D3) 25 mcg (1,000 unit) capsule 25 mcg PO QHS Qty: 90 0RF Other Ambulatory Orders: 12 Lead EKG (Routine) Location: None Selected Ordered By: Dr. Smooth Hernandez Referrals / Follow Up: Jazlyn Castro MD [Primary Care Provider, Internal Medicine] Espinoza Hernadez MD [Med Staff - Active Staff, Orthopedics] Disposition Disposition (needs filled in before D/C Order can be placed): Home, Self Care
--- NOTE | 2025-01-18 11:16 | OP.PCM_ITS ---
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 Placed supine on the table. Preoperative block given. 3 g IV Ancef administered prior to the start of the procedure. General anesthesia induced. Patient transferred to the right side up lateral decubitus beanbag positioner axillary roll placed. All bony prominences padded. SCDs on the legs. Upper extremity prepped and draped in the usual sterile fashion with chlorhexidine-based prep solution allowing over 3 minutes drying time prior to draping. 10 pounds of inline traction with the arm in 40 degrees of abduction was utilized. Preoperative timeout performed to confirm the site patient and the surgery. Began by inserting the arthroscope into the intra-articular portion of the shoulder through a standard posterior arthroscopy portal. Did a full diagnostic arthroscopy. Created an anterior portal inside out spinal needle localization through the rotator interval. Catilage on humeral head and glenoid appeared normal. There is some fraying of the superior labrum, but normal LHB and normal root. Gentle debridement of the frayed tissue. No loose bodies axillary recess entered. Subscapularis was normal. No tears at the cuff footprint. I then inserted the scope into the subacromial space. I performed a complete bursectomy for a large and copious amount of inflammatory bursitis. There is very slight downsloping of the acromion I flatten this using a high speed torin instrument by about 4 mm. Identified the AC joint this appeared normal slightly hypertrophic. I established accessory lateral and another accessory lateral portal. I placed a cannula through this. After performing the bursectomy there is a area longitudinal from medial to lateral at the mid aspect of the supraspinatus tendon just over top of the humeral head and joint area where there was a longitudinal tear. The attachment of the supraspinatus tendon at the footprint appeared normal and stable. I performed a gentle debridement and there is also some delaminating of the tendon in this area. I elected to do a oxye-ls-nnjl repair. I passed an inverted horizontal mattress anterior and posterior to the tear using Arthrex #2 FiberWire suture. I used an SMC sliding knot I placed the knot posteriorly I then used alternating half hitches to secure the suture and this fix the tear nicely. I tried to do another yrcw-jh-bafp repair stitch but the gap was already closed. Sutures were cut short. Arthroscopy portals taken and saved onto the system. Arthroscope withdrawn wounds thoroughly irrigated portal sites closed with 3-0 Monocryl suture. Skin cleaned with wet dry dressing followed application of Steri-Strips Adaptic 4 x 4 gauze ABD dressing cloth tape and an abduction pillow sling for the upper extremity. Patient woken up from the general anesthetic transferred off the operating table taken to postanesthetic care unit in stable condition. All sponge needle instrument counts were correct no complications. Plan for the patient discharged home according to day surgery criteria follow-up in the office within 2 weeks time. CPT 04091, 72956, 11783 Surgical Findings: as above Complications Complications: No Admit VTE Documentation VTE Present on Admission: No VTE Mechan Device Prophylaxis: SCD's VTE Pharm Prophylaxis ordered?: No Reason prophylaxis not ordered: Treatment Not Indicated
--- NOTE | 2025-01-18 11:33 | PCM.POST.ANE ---
Anesthesia: Postop Eval I Current Vital Signs Temperature: 97 F Pulse Rate: 77 Blood Pressure: 122/87 Respiratory Rate: 18 Pulse Ox: 98 Assessment Airway patent: Yes Spontaneous unlabored respirations: Yes nausea: No Vomiting: No Anesthesia Complication: No Fluid Hydration Crystalloid volume administer (ml): 1,000 Total IV fluid infused: 1,000 Progress Note Anesthesia document: Postop Eval 1 completed: Yes
--- NOTE | 2025-01-18 11:38 | POSTOPAN2_ITS ---
Anesthesia Postop Eval I Sum Postop Eval Completion status Anesthesia document: Postop Eval 1 completed: Yes Anesthesia Postop Eval I Summary Anesthesia Postop Eval I Summary: Anesthesia Postop Eval I: Assessment Summary Airway patent Yes 01/18/25 11:33 CHENILLE MACHINE OPERATOR.[email or web address] Spontaneous unlabored Yes 01/18/25 11:33 CHENILLE MACHINE OPERATOR.TNES respirations Mental status nausea No 01/18/25 11:33 CHENILLE MACHINE OPERATOR.TNES Vomiting No 01/18/25 11:33 CHENILLE MACHINE OPERATOR.TNES Anesthesia Postop Eval I: Fluid Summary Crystalloid volume administer 1,000 01/18/25 11:33 CHENILLE MACHINE OPERATOR.TNES (ml) Colloids volume administered ( ml) Blood Product volume administered (ml) Total IV fluid infused 1,000 01/18/25 11:33 CHENILLE MACHINE OPERATOR.TNES Anesthesia Postop Eval I: Summary Notes Anesthesia Complication No 01/18/25 11:33 CHENILLE MACHINE OPERATOR.TNES Anesthesia Complication Comment: Post-operative progress note Anesthesia: Postop Eval II Evaluation Mental status: Awake Pain Level: 0 nausea: No Vomiting: No
--- NOTE | 2025-01-18 11:38 | PCM.POSTANE2 ---
Anesthesia Postop Eval I Sum Postop Eval Completion status Anesthesia document: Postop Eval 1 completed: Yes Anesthesia Postop Eval I Summary Anesthesia Postop Eval I Summary: Anesthesia Postop Eval I: Assessment Summary Airway patent Yes 01/18/25 11:33 COUPLING MACHINE OPERATOR.[email or web address] Spontaneous unlabored Yes 01/18/25 11:33 COUPLING MACHINE OPERATOR.TNES respirations Mental status nausea No 01/18/25 11:33 COUPLING MACHINE OPERATOR.TNES Vomiting No 01/18/25 11:33 COUPLING MACHINE OPERATOR.TNES Anesthesia Postop Eval I: Fluid Summary Crystalloid volume administer 1,000 01/18/25 11:33 COUPLING MACHINE OPERATOR.TNES (ml) Colloids volume administered ( ml) Blood Product volume administered (ml) Total IV fluid infused 1,000 01/18/25 11:33 COUPLING MACHINE OPERATOR.TNES Anesthesia Postop Eval I: Summary Notes Anesthesia Complication No 01/18/25 11:33 COUPLING MACHINE OPERATOR.TNES Anesthesia Complication Comment: Post-operative progress note Anesthesia: Postop Eval II Evaluation Mental status: Awake Pain Level: 0 nausea: No Vomiting: No
== END 2025-01-18 14:36 | disposition home or self-care (01) ==
LOC: SDC 07:52 → AC 07:53
PROVIDERS: Anesthesiology; PCP Internal Medicine; Referring Provider Orthopaedic Surgery Sports Medicine; Visit Provider Orthopaedic Surgery Sports Medicine
PROC: (CPT 29805; principal; 2025-01-18 09:25)
DX: M75.101 Unspecified rotator cuff tear or rupture of right shoulder, not specified as traumatic (principal); M75.41 Impingement syndrome of right shoulder; M75.51 Bursitis of right shoulder; M67.813 Other specified disorders of tendon, right shoulder; G89.29 Other chronic pain; Z79.899 Other long term (current) drug therapy
CPT/HCPCS: 29827; 29826; 01630; 64415; 36415; 80048; 81025; 84443; 85027; 93005; J2405

== ENCOUNTER → 2025-03-17 | Outpatient (CLI) | payer MEDICAID, SELFPAY ==
[2025-03-17 16:47] LABS: Hematocrit 40.8 % (37-47); Hemoglobin 13.3 g/dL (12.0-15.0); Immature Granulocytes Count 0.050 X10^3/uL (0.0-0.0); Mean Corp Hgb Conc 32.6 g/dL (32-36); Mean Corpuscular Volume 87.2 fL (81-99); Mean Platelet Vol. 9.0 fl (6.2-12.0); NRBC Flagged by Analyzer 0 % (0-5); Platelet Count 390 K/mm3 (150-450); RBC Distribution Width CV 13.7 % (11.6-14.6); RBC Distribution Width SD 43.5 fl (35.1-43.9); Red Blood Count 4.68 M/mm3 (4.2-5.4); White Blood Count 10.7 K/mm3 (4.4-11.0)
[2025-03-17 18:03] LABS: HIV Nonreactive (Nonreactive); Hepatitis B Surface Antigen Nonreactive (Nonreactive); Hepatitis C Antibody Nonreactive (Nonreactive); Syphilis Antibodies Nonreactive (Nonreactive)
[2025-03-20 17:08] LABS: Chlamydia By Nucleic Acid AMP Negative (Negative); Gonococcus By Nucleic Acid AMP Negative (Negative)
== END | disposition home or self-care (01) ==
PROVIDERS: PCP Internal Medicine; Visit Provider Student in an Organized Health Care Education/Training Program
DX: O09.90 Supervision of high risk pregnancy, unspecified, unspecified trimester (principal); O99.280 Endocrine, nutritional and metabolic diseases complicating pregnancy, unspecified trimester; E03.9 Hypothyroidism, unspecified; O99.210 Obesity complicating pregnancy, unspecified trimester; Z3A.00 Weeks of gestation of pregnancy not specified
CPT/HCPCS: 36415; 83036; 84439; 84443; 85025; 86703; 86762; 86780; 86803; 86850; 86900; 86901; 87086; 87088; 87340; 87491; 87591